=== PATIENT | female | born 1950 | race Two or more races ===

== ENCOUNTER → 2016-05-22 | Outpatient (REF) | payer MEDICARE ==
[2016-05-22 13:46] LABS: ANION GAP 8 MEQ/L (8-16); BLOOD UREA NITROGEN 18 MG/DL (7-18); CALCIUM LEVEL 9.6 MG/DL (8.8-10.2); CARBON DIOXIDE LEVEL 31 MEQ/L (21-32); CHLORIDE LEVEL 102 MEQ/L (98-107); CHOLESTEROL LEVEL 133 MG/DL (<200); CREATININE FOR GFR 0.66 MG/DL (0.55-1.02); FREE T4 1.06 NG/DL (0.76-1.46); GLOMERULAR FILTRATION RATE > 60.0 (>45); GLUCOSE, FASTING 190 MG/DL (80-110); POTASSIUM SERUM 4.1 MEQ/L (3.5-5.1); SODIUM LEVEL 141 MEQ/L (136-145); TRIGLYCERIDES LEVEL 167 MG/DL (<150)
== END ==
LOC: M SFHCPLAZ 10:17
PROVIDERS: ATTEND Family Medicine
DX: R68.89 Other general symptoms and signs (principal); E11.42 Type 2 diabetes mellitus with diabetic polyneuropathy; E78.5 Hyperlipidemia, unspecified
CPT/HCPCS: 36415; 80048; 80061; 82043; 83036; 84439; 84443; G0463

== ENCOUNTER → 2016-06-16 | Outpatient (REF) | payer MEDICARE | LOC: M SFHCPLAZ 13:01 | PROVIDERS: ATTEND Family Medicine | DX: R80.9 Proteinuria, unspecified (principal) ==

== ENCOUNTER → 2017-01-18 | Outpatient (REF) | payer MEDICARE | LOC: M SFHCPLAZ 09:22 | PROVIDERS: ATTEND Family Medicine | DX: E11.42 Type 2 diabetes mellitus with diabetic polyneuropathy (principal) | CPT/HCPCS: 36415; 83036; G0463 ==

== ENCOUNTER → 2017-01-27 | Outpatient (CLI) | payer MEDICARE ==
--- NOTE | 2017-01-27 21:44 | REP ---
Left shoulder three views : There is no fracture or dislocation. Mineralization and joint spaces are normal. There are no calcifications or foreign bodies. Impression: Negative left shoulder . Signed by Sharad Mirza MD 01/27/2017 09:35 P
== END ==
LOC: M WUC 17:00
PROVIDERS: ATTEND Family Medicine
DX: M67.912 Unspecified disorder of synovium and tendon, left shoulder (principal)

== ENCOUNTER → 2017-07-28 | Outpatient (REF) | payer MEDICARE ==
[2017-07-28 12:20] LABS: ESTIMATED AVERAGE GLUCOSE 120 MG/DL (60-110); HEMOGLOBIN A1c 5.8 %
== END ==
LOC: M SFHCPLAZ 08:50
DX: E11.42 Type 2 diabetes mellitus with diabetic polyneuropathy (principal)
CPT/HCPCS: 83036

== ENCOUNTER → 2017-08-03 | Outpatient (REF) | payer MEDICARE ==
[2017-08-03 12:34] LABS: FREE T4 1.02 NG/DL (0.76-1.46)
== END ==
LOC: M SFHCPLAZ 10:23
DX: R25.1 Tremor, unspecified (principal)
CPT/HCPCS: 84443

== ENCOUNTER → 2017-08-27 | Outpatient (CLI) | payer MEDICARE ==
[2017-08-27 18:13] LABS: ESTIMATED AVERAGE GLUCOSE 123 MG/DL (60-110); HEMOGLOBIN A1c 5.9 %
[2017-08-27 18:14] LABS: VITAMIN B12 LEVEL 299 PG/ML
[2017-08-27 18:15] LABS: FOLATE 17.2 NG/ML
[2017-08-27 18:16] LABS: CPK CREATINE PHOSPHOKINASE 47 U/L (26-192)
[2017-08-27 18:16] LABS: FREE T4 0.97 NG/DL (0.76-1.46); RHEUMATOID FACTOR QUANT < 10.0 IU/ML (<15.0)
[2017-08-27 18:23] LABS: ERYTHROCYTE SEDIMENTATION RATE 46 mm/hr (0-30)
[2017-09-02 08:41] LABS: ANTINUCLEAR ANTIBODIES DIRECT Negative (Negative); VITAMIN B1 LEVEL WHOLE BLOOD 111.5 nmol/L (66.5-200.0); VITAMIN B6,PYRIDOXAL PHOSPHATE 3.2 ug/L (2.0-32.8); VITAMIN E(ALPHA TOCOPHEROL) 7.7 mg/L (9.0-29.0); VITAMIN E(GAMMA TOCOPHEROL) 2.9 mg/L (0.5-4.9)
== END ==
LOC: M WUC 12:17
DX: E11.9 Type 2 diabetes mellitus without complications (principal); E07.9 Disorder of thyroid, unspecified; R53.83 Other fatigue
CPT/HCPCS: 82550

== ENCOUNTER → 2017-09-06 | Outpatient (CLI) | payer MEDICARE | LOC: M RAD 11:48 | DX: R26.0 Ataxic gait (principal); I65.23 Occlusion and stenosis of bilateral carotid arteries | CPT/HCPCS: 93880 ==

== ENCOUNTER → 2017-12-15 | Outpatient (REF) | payer MEDICARE ==
[2017-12-15 12:03] LABS: ESTIMATED AVERAGE GLUCOSE 166 MG/DL (60-110); HEMOGLOBIN A1c 7.4 %
== END ==
LOC: M SFHCPLAZ 08:59
DX: E11.42 Type 2 diabetes mellitus with diabetic polyneuropathy (principal)
CPT/HCPCS: 83036

== ENCOUNTER → 2018-01-25 | Outpatient (REF) | payer MEDICARE ==
[2018-01-25 14:29] LABS: FOLATE 15.6 NG/ML; TOTAL 25(OH) VITAMIN D 38.7 NG/ML (30.0-100.0); VITAMIN B12 LEVEL 1168 PG/ML
== END ==
LOC: M LABNEURO 10:03
DX: E53.8 Deficiency of other specified B group vitamins (principal); E55.9 Vitamin D deficiency, unspecified
CPT/HCPCS: 82746

== ENCOUNTER → 2018-03-29 | Outpatient (CLI) | payer MEDICARE ==
[2018-03-29 14:48] LABS: CALCIUM LEVEL 8.9 MG/DL (8.8-10.2); CHOLESTEROL RISK RATIO 2.311 (<5); CREATININE FOR GFR 1.01 MG/DL (0.55-1.30); MALB URINE SIEMENS 32.9 MG/L; MAU/CREAT RATIO 31.6 MCG/MG (0.0-30.0); POTASSIUM SERUM 4.9 MEQ/L (3.5-5.1)
[2018-03-29 14:55] LABS: HEMOGLOBIN A1c 7.8 %
== END ==
LOC: M WUC 11:49
PROVIDERS: ATTEND Family Medicine
DX: K13.0 Diseases of lips (principal); E78.5 Hyperlipidemia, unspecified; E11.42 Type 2 diabetes mellitus with diabetic polyneuropathy

== ENCOUNTER 2018-05-26 07:45 | Day surgery (SDC) | payer MEDICARE ==
[~2018-05-26] VITALS: Ht 158.8 cm; Wt 73.5 kg
[~2018-05-26 07:45] MED LIST: ASPI81TA85 PO; ATOR40TA75 PO; BALANCED SALT IRRIGATION SOLUTION 500ML BAG (FOR OR EYE MACHINE) As Ordered ONE; CALCCHW4 PO; CLOP75TA2 PO; DUOVISC (0.50ML VISCOAT/0.55ML PROVISC) OPHTH KIT As Ordered ONE; FLUTISP; GLIP2.5T6 PO; GLUC750T22 PO; LISI-542 PO; MECL-68 PO; METF10004 PO; MIDAZOLAM INJ 2 MG/2 ML VIAL (J2250) As Ordered ONE; MOXIFLOXACIN IN BSS 0.25MG/0.25ML INTRACAMERAL INJ (OR EYE ONLY)(J2280) As Ordered ONE; OFLOXACIN 0.3 % (OCUFLOX) OPTH SOL 5ML OS ONE; PHENYLEPHRINE 2.5% OPHTH SOL 2ML OS ONE; POVIDONE-IODINE 5% OPHTH PREP SOL 30ML As Ordered ONE; PROPARACAINE 0.5% OPHTH SOL 15ML OS ONE; TRIA1CR80; TROPICAMIDE 1% OPHTH SOLN 2ML OS ONE; VENL150C43 PO; VITA100L PO; VITA2000 PO; fentaNYL 100 MCG/2 ML INJECTION (J3010) As Ordered ONE
[2018-05-26] MEDS ORDERED: LIDOCAINE 0.75%/EPINEPHRINE 0.025% IN BSS 1ML SYR INTRACAMERAL (OR ONLY) As Ordered ONE (09:45)
[2018-05-26 10:25] VITALS: BP 120/57
--- NOTE | 2018-05-27 08:07 | RO ---
DATE OF PROCEDURE: 05/26/2018 PREOPERATIVE DIAGNOSIS: 1. Visually significant nuclear sclerotic cataract left eye. POSTOPERATIVE DIAGNOSIS: 1. Visually significant nuclear sclerotic cataract left eye. PROCEDURE: 1. Cataract extraction with use of phacoemulsification and placement of intraocular lens, AU00T0, 20.5 D, left eye. SURGEON: Abran De Jesus DO HAND BINDER CUTTER: None. ANESTHESIA: Local with monitored anesthesia care (MAC). COMPLICATIONS: None. POSTOPERATIVE CONDITION: Stable. INDICATIONS FOR SURGERY: 1. Blurred vision affecting patients activities of daily living. DESCRIPTION OF PROCEDURE: The patient was seen in the preoperative area and properly identified. The correct operative eye was identified and marked. The patient received topical anesthetic, antibiotics, and topical dilating drops. The patient was then transferred to the operating room. The correct side was re-identified, and a time-out was performed. The eye was prepped and draped in a sterile fashion. The eyelids were isolated with Tegaderm tape, and the lids were held open with an adjustable speculum. A 1.0 mm paracentesis incision was made. Intraocular preservative-free Shugarcaine was then injected into the anterior chamber. Viscoelastic was then injected into the anterior chamber through the paracentesis. Using a 2.4 mm sharp-tipped keratome, the anterior chamber was entered via a temporal clear cornea incision. A continuous curvilinear capsulorrhexis was created with Utrata forceps. Hydrodissection was performed with balanced salt solution (BSS) on a blunt cannula until the nucleus was able to rotate freely. The crystalline lens was phacoemulsified and aspirated. Irrigation/aspiration was used to remove the cortical material. Cohesive viscoelastic was placed into the capsular bag to deepen it. The implant was placed into the capsular bag and allowed to unfold. Placement was confirmed by visualizing the anterior capsulorrhexis. Irrigation/aspiration was used to remove the viscoelastic. The clear corneal incision was hydrated with BSS on a blunt cannula. The lens was well positioned. The incisions were then tested for leaks and found to be negative. The eye was then palpated for appropriate pressure and adjusted accordingly with BSS. The eyelid speculum was then carefully removed. A shield was placed over the eye. The patient tolerated the procedure well and was discharged to the recovery unit in a stable condition.
== END 2018-05-26 10:42 | disposition home or self-care (01) ==
LOC: M SDC 07:45
PROVIDERS: ATTEND Ophthalmology
DX: H25.12 Age-related nuclear cataract, left eye (principal); I10 Essential (primary) hypertension; G47.30 Sleep apnea, unspecified; E11.9 Type 2 diabetes mellitus without complications; F32.9 Major depressive disorder, single episode, unspecified; Z79.82 Long term (current) use of aspirin; Z79.84 Long term (current) use of oral hypoglycemic drugs; Z79.899 Other long term (current) drug therapy
CPT/HCPCS: 66984; J2250; J3010; V2632

== ENCOUNTER 2018-06-16 09:11 | Day surgery (SDC) | payer MEDICARE ==
[~2018-06-16] VITALS: Ht 157.5 cm; Wt 73.4 kg
[~2018-06-16 09:11] MED LIST changes: +LIDOCAINE 0.75%/EPINEPHRINE 0.025% IN BSS 1ML SYR INTRACAMERAL (OR ONLY) As Ordered ONE; -MOXIFLOXACIN IN BSS 0.25MG/0.25ML INTRACAMERAL INJ (OR EYE ONLY)(J2280) As Ordered ONE; +OFLOXACIN 0.3 % (OCUFLOX) OPTH SOL 5ML OD ONE; -OFLOXACIN 0.3 % (OCUFLOX) OPTH SOL 5ML OS ONE; +PHENYLEPHRINE 2.5% OPHTH SOL 2ML OD ONE; -PHENYLEPHRINE 2.5% OPHTH SOL 2ML OS ONE; +PROPARACAINE 0.5% OPHTH SOL 15ML OD ONE; -PROPARACAINE 0.5% OPHTH SOL 15ML OS ONE; +TROPICAMIDE 1% OPHTH SOLN 2ML OD ONE; -TROPICAMIDE 1% OPHTH SOLN 2ML OS ONE
[2018-06-16] MEDS ORDERED: B-12100010 PO (10:21)
[2018-06-16 11:55] VITALS: BP 138/78
--- NOTE | 2018-06-20 16:54 | RO ---
DATE OF PROCEDURE: 06/16/2018 PREOPERATIVE DIAGNOSIS: 1. Visually significant nuclear sclerotic cataract right eye. POSTOPERATIVE DIAGNOSIS: 1. Visually significant nuclear sclerotic cataract right eye. PROCEDURE: 1. Cataract extraction with use of phacoemulsification and placement of intraocular lens, AU00T0, 21.0 D, right eye. SURGEON: Abran De Jesus DO CHILD SUPPORT AGENT: None. ANESTHESIA: Local with monitored anesthesia care (MAC). COMPLICATIONS: None. POSTOPERATIVE CONDITION: Stable. INDICATIONS FOR SURGERY: 1. Blurred vision affecting patients activities of daily living. DESCRIPTION OF PROCEDURE: The patient was seen in the preoperative area and properly identified. The correct operative eye was identified and marked. The patient received topical anesthetic, antibiotics, and topical dilating drops. The patient was then transferred to the operating room. The correct side was re-identified, and a time-out was performed. The eye was prepped and draped in a sterile fashion. The eyelids were isolated with Tegaderm tape, and the lids were held open with an adjustable speculum. A 1.0 mm paracentesis incision was made. Intraocular preservative-free Shugarcaine was then injected into the anterior chamber. Viscoelastic was then injected into the anterior chamber through the paracentesis. Using a 2.4 mm sharp-tipped keratome, the anterior chamber was entered via a temporal clear cornea incision. A continuous curvilinear capsulorrhexis was created with Utrata forceps. Hydrodissection was performed with balanced salt solution (BSS) on a blunt cannula until the nucleus was able to rotate freely. The crystalline lens was phacoemulsified and aspirated. Irrigation/aspiration was used to remove the cortical material. Cohesive viscoelastic was placed into the capsular bag to deepen it. The implant was placed into the capsular bag and allowed to unfold. Placement was confirmed by visualizing the anterior capsulorrhexis. Irrigation/aspiration was used to remove the viscoelastic. The clear corneal incision was hydrated with BSS on a blunt cannula. The lens was well positioned. The incisions were then tested for leaks and found to be negative. The eye was then palpated for appropriate pressure and adjusted accordingly with BSS. The eyelid speculum was then carefully removed. A shield was placed over the eye. The patient tolerated the procedure well and was discharged to the recovery unit in a stable condition.
== END 2018-06-16 12:56 | disposition home or self-care (01) ==
LOC: M SDC 09:11
PROVIDERS: ATTEND Ophthalmology
DX: H25.11 Age-related nuclear cataract, right eye (principal); I10 Essential (primary) hypertension; G47.30 Sleep apnea, unspecified; E11.9 Type 2 diabetes mellitus without complications; Z79.84 Long term (current) use of oral hypoglycemic drugs; Z79.899 Other long term (current) drug therapy; Z88.0 Allergy status to penicillin; Z88.8 Allergy status to other drugs, medicaments and biological substances
CPT/HCPCS: 66984; J2250; J3010; V2632

== ENCOUNTER → 2018-09-07 | Outpatient (REF) | payer MEDICARE ==
[~2018-09-07] MED LIST changes: +B-12100010 PO; -BALANCED SALT IRRIGATION SOLUTION 500ML BAG (FOR OR EYE MACHINE) As Ordered ONE; -DUOVISC (0.50ML VISCOAT/0.55ML PROVISC) OPHTH KIT As Ordered ONE; -LIDOCAINE 0.75%/EPINEPHRINE 0.025% IN BSS 1ML SYR INTRACAMERAL (OR ONLY) As Ordered ONE; -MIDAZOLAM INJ 2 MG/2 ML VIAL (J2250) As Ordered ONE; -OFLOXACIN 0.3 % (OCUFLOX) OPTH SOL 5ML OD ONE; -PHENYLEPHRINE 2.5% OPHTH SOL 2ML OD ONE; -POVIDONE-IODINE 5% OPHTH PREP SOL 30ML As Ordered ONE; -PROPARACAINE 0.5% OPHTH SOL 15ML OD ONE; -TROPICAMIDE 1% OPHTH SOLN 2ML OD ONE; -fentaNYL 100 MCG/2 ML INJECTION (J3010) As Ordered ONE
[2018-09-07 15:03] LABS: BLOOD UREA NITROGEN 15 MG/DL (7-18); CALCIUM LEVEL 9.5 MG/DL (8.8-10.2); CARBON DIOXIDE LEVEL 30 MEQ/L (21-32); CHLORIDE LEVEL 104 MEQ/L (98-107); GLOMERULAR FILTRATION RATE > 60.0 (>45); GLUCOSE, FASTING 242 MG/DL (70-100); POTASSIUM SERUM 4.1 MEQ/L (3.5-5.1); SODIUM LEVEL 142 MEQ/L (136-145); VITAMIN B12 LEVEL > 2000 PG/ML (247-911)
== END ==
LOC: M SFHCPLAZ 14:01
PROVIDERS: ATTEND Family Medicine
DX: E11.42 Type 2 diabetes mellitus with diabetic polyneuropathy (principal); R26.0 Ataxic gait

== ENCOUNTER → 2018-09-21 | Outpatient (RCR) | payer MEDICARE | LOC: M PT 09-20 08:04 | PROVIDERS: ATTEND Family Medicine | DX: Z51.89 Encounter for other specified aftercare (principal); R26.0 Ataxic gait ==

== ENCOUNTER 2018-10-20 10:30 | Outpatient (RCR) | payer MEDICARE | END 2018-10-22 | LOC: M PT 10:30 | PROVIDERS: ATTEND Family Medicine | DX: Z51.89 Encounter for other specified aftercare (principal); R26.0 Ataxic gait; R42 Dizziness and giddiness ==

== ENCOUNTER 2018-11-09 08:30 | Outpatient (RCR) | payer MEDICARE | END 2018-11-21 | LOC: M PT 08:30 | PROVIDERS: ATTEND Family Medicine | DX: R42 Dizziness and giddiness (principal); R26.0 Ataxic gait ==

== ENCOUNTER → 2018-12-09 | Outpatient (REF) | payer MEDICARE ==
[2018-12-09 19:20] LABS: BLOOD UREA NITROGEN 12 MG/DL (7-18); CALCIUM LEVEL 9.2 MG/DL (8.8-10.2); CARBON DIOXIDE LEVEL 29 MEQ/L (21-32); CHLORIDE LEVEL 103 MEQ/L (98-107); CREATININE FOR GFR 0.66 MG/DL (0.55-1.30); GLOMERULAR FILTRATION RATE > 60.0 (>45); GLUCOSE, FASTING 211 MG/DL (70-100); POTASSIUM SERUM 4.3 MEQ/L (3.5-5.1); SODIUM LEVEL 139 MEQ/L (136-145)
[2018-12-09 19:24] LABS: HEMOGLOBIN A1c 8.1 %
== END ==
LOC: M SFHCSACK 10:46
PROVIDERS: ATTEND Physician Assistant
DX: E11.42 Type 2 diabetes mellitus with diabetic polyneuropathy (principal)

== ENCOUNTER → 2019-03-17 | Outpatient (CLI) | payer MEDICARE ==
[~2019-03-17] MED LIST changes: -MECL-68 PO; +MECL1TAB31 PO
[2019-03-17 12:53] LABS: BLOOD UREA NITROGEN 10 MG/DL (7-18); CALCIUM LEVEL 8.9 MG/DL (8.8-10.2); CARBON DIOXIDE LEVEL 29 MEQ/L (21-32); CHLORIDE LEVEL 107 MEQ/L (98-107); CREATININE FOR GFR 0.65 MG/DL (0.55-1.30); GLOMERULAR FILTRATION RATE > 60.0 (>45); GLUCOSE, FASTING 129 MG/DL (70-100); POTASSIUM SERUM 4.5 MEQ/L (3.5-5.1); SODIUM LEVEL 144 MEQ/L (136-145)
[2019-03-17 13:24] LABS: MALB URINE SIEMENS 16.5 MG/L; MAU/CREAT RATIO 11.7 MCG/MG (0.0-30.0)
== END ==
LOC: M WUC 09:03
PROVIDERS: ATTEND Family Medicine
DX: E11.42 Type 2 diabetes mellitus with diabetic polyneuropathy (principal)

== ENCOUNTER → 2019-05-01 | Outpatient (CLI) | payer MEDICARE ==
--- NOTE | 2019-05-08 09:54 | REPMRS ---
Patient History The patient states she has not had a clinical breast exam in over a year. Patient is postmenopausal and had first child at age 34. Family history of unknown cancer in father, unknown cancer in brother. 3D TOMOSYNTHESIS WAS PERFORMED. [facility] lifetime risk for breast cancer is 6.1%. [facility] Woman Screen Mammo: May 01, 2019 - Exam #: [id number] Bilateral CC and MLO view(s) were taken. Technologist: Amna Bean Technologist FINDINGS: The breast tissue is heterogeneously dense. This may lower the sensitivity of mammography. There has been no change in the appearance of the mammogram from the prior studies. There is a moderate amount of residual fibroglandular tissue which is fairly symmetric. There is no interval development of dominant mass, areas of architectural distortion, or clustered microcalcification typical of malignancy. Assessment: BI-RADS/ACR category 1 mammogram. Negative Mammogram. Recommendation Routine screening mammogram in 1 year (for women over age 40). This mammogram was interpreted with the aid of an FDA-approved computer-aided dectection system. Electronically Signed By: Sharad Mirza M.D. 05/08/19 0953
== END ==
LOC: M WHC 08:53
PROVIDERS: ATTEND Nurse Practitioner Family
DX: Z12.31 Encounter for screening mammogram for malignant neoplasm of breast (principal); Z78.0 Asymptomatic menopausal state

== ENCOUNTER → 2019-10-20 | Outpatient (CLI) | payer MEDICARE ==
[~2019-10-20] MED LIST changes: -ASPI81TA85 PO; +ASPI81TA86 PO; +BREO1INH INH; +GABA-845 PO; +MAGN400C2 PO; +OXYC1TAB23 PO; +TRUL10IN SC
[2019-10-20 15:50] LABS: ALBUMIN 3.5 GM/DL (3.2-5.2); ALT/SGPT 22 U/L (12-78); BILIRUBIN,TOTAL 0.6 MG/DL (0.2-1.0); BLOOD UREA NITROGEN 13 MG/DL (7-18); CALCIUM LEVEL 9.3 MG/DL (8.8-10.2); CARBON DIOXIDE LEVEL 31 MEQ/L (21-32); CHLORIDE LEVEL 105 MEQ/L (98-107); CHOLESTEROL LEVEL 125 MG/DL (<200); CHOLESTEROL RISK RATIO 2.118 (<5); CREATININE FOR GFR 0.64 MG/DL (0.55-1.30); GLOMERULAR FILTRATION RATE > 60.0 (>45); GLUCOSE, FASTING 108 MG/DL (70-100); HDL CHOLESTEROL 59 MG/DL (>40); LDL CHOLESTEROL 35 MG/DL (<100); NON-HDL-C 66 MG/DL; POTASSIUM SERUM 4.5 MEQ/L (3.5-5.1); SODIUM LEVEL 143 MEQ/L (136-145); TOTAL PROTEIN 7.5 GM/DL (6.4-8.2); TRIGLYCERIDES LEVEL 154 MG/DL (<150)
[2019-10-20 17:49] LABS: HEMOGLOBIN A1c 6.1 %
== END ==
LOC: M WUC 10:46
PROVIDERS: ATTEND Physician Assistant
DX: I10 Essential (primary) hypertension (principal); E78.2 Mixed hyperlipidemia; E11.42 Type 2 diabetes mellitus with diabetic polyneuropathy

== ENCOUNTER → 2019-11-27 | Outpatient (CLI) | payer MEDICARE ==
--- NOTE | 2019-12-04 12:47 | REPPI ---
CHEST X-RAY 2-VIEWS HISTORY: Chronic obstructive pulmonary disease (COPD). COMPARISON: No comparison study. FINDINGS: There is blunting of the right lateral and posterior pleural angles consistent with right pleural effusion small in size. Interstitial markings are diffusely prominent. There is plate-like atelectasis in the right inferior parahilar region. The heart is borderline. Cardiothoracic ratio measures 54.4%. There are degenerative changes in the thoracic spine and aorta. IMPRESSION: Small right pleural effusion. Diffuse interstitial fibrosis versus edema. Plate- like atelectasis right inferior perihilar region. Borderline heart size. MTDD
== END ==
LOC: M PLAIMG 11:33
PROVIDERS: ATTEND Nurse Practitioner Family
DX: J90 Pleural effusion, not elsewhere classified (principal); J98.11 Atelectasis; J44.1 Chronic obstructive pulmonary disease with (acute) exacerbation
CPT/HCPCS: 36415; 71046; 80053; 83735; 83880; 85025; 86140; 87486; 87581; 87633; 87798; 90682; G0008

== ENCOUNTER → 2019-11-27 | Outpatient (REF) | payer MEDICARE ==
[2019-11-27 14:11] LABS: BASO % 0.4 % (0.0-1.0); EOS # 0.9 10^3/uL (0.0-0.5); EOS % 7.8 % (0.0-3.0); HEMATOCRIT 34.7 % (36.0-47.0); HEMOGLOBIN 10.8 g/dl (12.0-15.5); LYMPH # 2.4 10^3/uL (1.5-5.0); LYMPH % 21.6 % (24.0-44.0); MEAN CORPUSCULAR HEMOGLOBIN 28.7 pg (27.0-33.0); MEAN CORPUSCULAR HGB CONC 31.1 g/dl (32.0-36.5); MEAN CORPUSCULAR VOLUME 92.3 fl (80.0-96.0); MONO # 0.9 10^3/uL (0.0-0.8); MONO % 7.9 % (0.0-5.0); NEUTROPHILS # 6.8 10^3/uL (1.5-8.5); NEUTROPHILS % 61.9 % (36.0-66.0); PLATELET COUNT, AUTOMATED 276 10^3/uL (150-450); RED BLOOD COUNT 3.76 10^6/uL (4.00-5.40)
[2019-11-27 14:37] LABS: NT-PRO BNP 138 PG/ML (<125)
[2019-11-27 15:14] LABS: ALBUMIN 3.3 GM/DL (3.2-5.2); ALT/SGPT 20 U/L (12-78); BILIRUBIN,TOTAL 0.3 MG/DL (0.2-1.0); BLOOD UREA NITROGEN 13 MG/DL (7-18); CALCIUM LEVEL 9.4 MG/DL (8.8-10.2); CARBON DIOXIDE LEVEL 32 MEQ/L (21-32); CHLORIDE LEVEL 104 MEQ/L (98-107); CREATININE FOR GFR 0.58 MG/DL (0.55-1.30); GLOMERULAR FILTRATION RATE > 60.0 (>39); GLUCOSE, FASTING 74 MG/DL (70-100); POTASSIUM SERUM 4.4 MEQ/L (3.5-5.1); SODIUM LEVEL 141 MEQ/L (136-145); TOTAL PROTEIN 7.3 GM/DL (6.4-8.2)
== END ==
LOC: M SFHCPLAZ 11:34
PROVIDERS: ATTEND Nurse Practitioner Family
DX: R06.02 Shortness of breath (principal); J44.1 Chronic obstructive pulmonary disease with (acute) exacerbation

== ENCOUNTER → 2019-12-05 | Outpatient (CLI) | payer MEDICARE ==
[~2019-12-05] MED LIST changes: +ISOVUE-370 76% 100ML VIAL As Ordered ONE; -OXYC1TAB23 PO
--- NOTE | 2019-12-08 08:30 | REP ---
CONTRAST ENHANCED CHEST CT: 12/05/19 CLINICAL: Interstitial pulmonary disease. TECHNIQUE: Axial contrast enhanced images from the thoracic inlet to the upper abdomen with coronal and sagittal reformations using 75cc Isovue 370 intravenous contrast material. COMPARISON: None. FINDINGS: There is a 3.5cm infiltrating mass at the right hilum with associated adjacent adenopathy and extension into the right infrahilar lower lobe. Underlying diffuse interstitial prominence and small irregular areas of air space disease are also appreciate primarily involving the right hemithorax and to a lesser extent portions of the left upper lobe and left lower lobe. There is a small right pleural effusion also identified. These findings are most compatible with primary pulmonary malignancy. The tracheobronchial tree is relatively patent. There is no evidence of pneumothorax. Further evaluation of the mediastinum demonstrates atherosclerotic disease to the thoracic aorta and coronary arteries without aortic aneurysm or cardiomegaly. No pericardial effusion. Musculoskeletal structures demonstrate age related changes without acute osseous abnormality. Limited upper abdomen demonstrates normal bilateral adrenal glands. IMPRESSION: 3.5cm infiltrating right hilar mass with mediastinal adenopathy and extension into the infrahilar right lower lobe along with moderate diffuse increased interstitial changes and small scattered air space disease (right greater than left). Findings compatible with primary pulmonary malignancy and require further investigation and immediate attention. MTDD
== END ==
LOC: M RAD 10:35
PROVIDERS: ATTEND Nurse Practitioner Family
DX: J84.9 Interstitial pulmonary disease, unspecified (principal); R91.8 Other nonspecific abnormal finding of lung field
CPT/HCPCS: 71260; Q9967

== ENCOUNTER → 2019-12-07 | Outpatient (REF) | payer MEDICARE ==
[~2019-12-07] MED LIST changes: -ISOVUE-370 76% 100ML VIAL As Ordered ONE
[2019-12-07 15:36] LABS: PLATELET COUNT, AUTOMATED 281 10^3/uL (150-450)
[2019-12-07 15:51] LABS: INR 0.98; PROTHROMBIN TIME 13.1 SECONDS (12.5-14.3)
[2019-12-07 15:56] LABS: BLOOD UREA NITROGEN 13 MG/DL (7-18); CALCIUM LEVEL 9.6 MG/DL (8.8-10.2); CARBON DIOXIDE LEVEL 32 MEQ/L (21-32); CHLORIDE LEVEL 103 MEQ/L (98-107); CREATININE FOR GFR 0.47 MG/DL (0.55-1.30); GLOMERULAR FILTRATION RATE > 60.0 (>39); GLUCOSE, FASTING 52 MG/DL (70-100); POTASSIUM SERUM 4.2 MEQ/L (3.5-5.1); SODIUM LEVEL 139 MEQ/L (136-145)
== END ==
LOC: M LAB REF 15:19
PROVIDERS: ATTEND Internal Medicine Pulmonary Disease
DX: Z01.812 Encounter for preprocedural laboratory examination (principal); R91.8 Other nonspecific abnormal finding of lung field; Z79.01 Long term (current) use of anticoagulants

== ENCOUNTER → 2019-12-22 | Outpatient (CLI) | payer MEDICARE | LOC: M LABSMTC 12:33 | PROVIDERS: ATTEND Anesthesiology | DX: Z01.812 Encounter for preprocedural laboratory examination (principal); Z20.828 Contact with and (suspected) exposure to other viral communicable diseases | CPT/HCPCS: C9803; U0003 ==

== ENCOUNTER 2019-12-27 06:21 | Day surgery (SDC) | payer MEDICARE ==
[~2019-12-27] VITALS: Ht 157.5 cm; Wt 65.8 kg
[~2019-12-27 06:21] MED LIST changes: +LR 1,000 ML IV ONE
[2019-12-27] MEDS ORDERED: LIDOCAINE 2% 100MG/5ML SDV (FOR ANES.) As Ordered ONE (07:12)
[2019-12-27] MEDS ORDERED: fentaNYL 100 MCG/2 ML INJECTION (J3010) As Ordered ONE ×2 (07:12→08:01)
[2019-12-27] MEDS ORDERED: ROCURONIUM BROMIDE 50 MG/5 ML VIAL As Ordered ONE (07:12)
[2019-12-27] MEDS ORDERED: MIDAZOLAM INJ 2MG/2ML VIAL (J2250 PER 1MG) As Ordered ONE (07:12)
[2019-12-27] MEDS ORDERED: propofoL 200 MG/20 ML VIAL As Ordered ONE (07:12)
[2019-12-27] MEDS ORDERED: ALBUTEROL SULFATE 2.5 MG/0.5 ML INH NEB SOLN INH ONE (07:15)
[2019-12-27] MEDS ORDERED: LIDOCAINE 4% INJ 5ML AMP INH ONE (07:15)
[2019-12-27] MEDS ORDERED: EPINEPHrine 1MG/10ML SYRINGE 1.5IN As Ordered ONE (07:19)
[2019-12-27] MEDS ORDERED: LIDOCAINE 1% SDV 30ML VIAL As Ordered ONE (07:19)
[2019-12-27] MEDS ORDERED: THROMBIN SOLN 5,000 UNITS VIAL As Ordered ONE (07:19)
[2019-12-27] MEDS ORDERED: CETACAINE SPRAY 5GM As Ordered ONE (07:20)
[2019-12-27] MEDS ORDERED: dexameTHASONE 4 MG/ML 1ML VIAL (J1100 PER 1MG) As Ordered ONE (07:58)
[2019-12-27] MEDS ORDERED: ONDANSETRON 4MG/2ML VIAL As Ordered ONE (08:08)
[2019-12-27] MEDS ORDERED: METOCLOPRAMIDE INJ 10MG/2ML VIAL (J2765 PER 1) As Ordered ONE (08:08)
[2019-12-27] MEDS ORDERED: SUGAMMADEX SODIUM 500 MG/5 ML VIAL (BRIDION) As Ordered ONE (08:08)
--- NOTE | 2019-12-27 09:12 | REP ---
INDICATION: POST BRONCH/EBUS IN 2238. COMPARISON: Comparison chest x-ray November 27, 2019. Comparison chest CT study December 05, 2019.. TECHNIQUE: Portable upright AP view. FINDINGS: Monitoring electrodes are seen. Mitral annular calcification and cardiomegaly are again observed. There is pleuroparenchymal opacity in the right base and prior right inferior hilar region. This radiograph is exposed at the lesser level of inspiration which magnifies this period the pleuroparenchymal process does appear more extensive than on the 11 27 2019 study. There are increased interstitial markings in the apices, right greater than left. There is no evidence of pneumothorax. IMPRESSION: Lesser level of inspiration. No complication seen. Pleuroparenchymal process right base and biapical interstitial changes. <Electronically signed by Schuyler Galeano > 12/27/19 0984
[2019-12-27] MEDS ORDERED: fentaNYL 100 MCG/2 ML INJECTION (J3010) IV PRN (09:15)
[2019-12-27] MEDS ORDERED: oxyCODONE 5MG TAB PO PRN (09:15)
[2019-12-27] MEDS ORDERED: ONDANSETRON 4MG/2ML VIAL IV PRN (09:15)
[2019-12-27] MEDS ORDERED: LR 1,000 ML IV SCH (09:15)
[2019-12-27] MEDS ORDERED: METOCLOPRAMIDE INJ 10MG/2ML VIAL (J2765 PER 1) IV PRN (09:15)
[2019-12-27 10:30] VITALS: BP 136/68
--- NOTE | 2019-12-28 11:21 | ROOR ---
Patient Name: April Gómez Procedure Date: 12/27/2019 7:44 AM Date of : 1950 Admit Type: Outpatient Age: 69 Room: Main OR Note Status: Batch Blender Override Attending MD: Briana Gutierrez MD Procedure: Bronchoscopy Indications: Right middle lobe mass, Right lower lobe mass, Adenopathy Providers: Briana Gutierrez MD (Doctor), Bebeto Andrade DO, FCCP (1st Assisting Doctor) Referring MD: Jael Self (Referring MD) Requesting Physician: Medicines: Lidocaine 4% via nebulizer with Albuterol 2.5 mg, General Anesthesia, Cetacaine topical, Epinephrine 1 mg/10 mL topical 1 mL Complications: No immediate complications. Estimated blood loss: Minimal Procedure: Pre-Anesthesia Assessment: - Prior to the procedure, a History and Physical was performed, and patient medications and allergies were reviewed. The patient's tolerance of previous anesthesia was also reviewed. The risks and benefits of the procedure and the sedation options and risks were discussed with the patient. All questions were answered, and informed consent was obtained. Prior Anticoagulants: The patient has taken aspirin and Plavix (clopidogrel), last doses were 7 days prior to procedure. ASA Grade Assessment: III - A patient with severe systemic disease. After reviewing the risks and benefits, the patient was deemed in satisfactory condition to undergo the procedure. - Patient identification and proposed procedure were verified prior to the procedure by the physician, the nurse, the cargo station worker and the bench lay out technician. The procedure was verified in the procedure room. The Bronchoscope was introduced through the mouth, via the endotracheal tube (the patient was intubated for the procedure) and advanced to the tracheobronchial tree of both lungs. The procedure was accomplished without difficulty. The patient tolerated the procedure well. Findings: Right Lung Abnormalities: Starting from the bronchus intermedius extending into the right middle lobe take off and right lower lobe basal segmental take off and right lower lobe supeior segment take off the mucosa appeared abnormal. The right lower lobe mucosa was friable, edematous with some nodularity noted. There appeared to be narrowing of the right lower lobe take off to basilar segment orifice and narrowng in right lower lobe superior segment (B6) oriface. The mucosa in right middle lobe appeared edematous and friable with mild narrowing noted of the right middle lobe oriface. Endobronchial brushings were obtained in the right lower lobe with a cytology brush and sent for routine cytology. Endobronchial biopsies were performed in the right lower lobe using forceps and sent for histopathology examination. BAL was performed in the right lower lobe of the lung and sent for routine cytology, aerobic culture and anaerobic culture. The return was blood-tinged and cellular. Multiple specimens were obtained, and each sent for analysis. An endobronchial ultrasound endoscope was utilized in order to assist with fine needle aspiration in the subcarinal area. A transbronchial needle aspiration of a lymph node was performed in the subcarinal area using an Olympus EBUS-TBNA 21 gauge needle and sent for routine cytology. The procedure was guided by ultrasound. Transbronchial needle aspiration technique was selected because the sampling site was not visible endoscopically. One sample was obtained. Impression: - Right middle lobe mass - Right lower lobe mass - Adenopathy - Friable, edematous and nodular mucosa was found in the right middle lobe, in the right lower lobe and in the superior segment of the right lower lobe (B6) with narrowing notable more in right lower lobe oriface. - Brushings were obtained. - An endobronchial biopsy was performed. - Bronchoalveolar lavage was performed. - EBUS and FNA of subcarinal lymph node was performed. Recommendation: - Await test results. - Thoracentesis for enlarged right pleural effusion noted on post-procedure CXR Attending Participation: I personally performed the entire procedure. Briana Gutierrez MD 12/27/2019 11:32:07 AM Bbeeto Andrade DO, [facility] Number of Addenda: 0 Note Initiated On: 12/27/2019 7:44 AM
--- NOTE | 2019-12-28 11:21 | ROOR ---
THIS EXAM WAS SENT IN ERROR
[2020-01-05] MEDS ORDERED: OXYC1TAB23 PO (10:32)
== END 2019-12-27 10:30 | disposition home or self-care (01) ==
LOC: M SDC 06:21
PROVIDERS: ATTEND Internal Medicine Pulmonary Disease
DX: C34.31 Malignant neoplasm of lower lobe, right bronchus or lung (principal); I10 Essential (primary) hypertension; J44.9 Chronic obstructive pulmonary disease, unspecified; E11.9 Type 2 diabetes mellitus without complications; E78.49 Other hyperlipidemia; G47.33 Obstructive sleep apnea (adult) (pediatric); F32.9 Major depressive disorder, single episode, unspecified; G25.0 Essential tremor; Z87.891 Personal history of nicotine dependence; Z88.0 Allergy status to penicillin; Z88.8 Allergy status to other drugs, medicaments and biological substances; Z79.899 Other long term (current) drug therapy
CPT/HCPCS: 31623; 31624; 31625; 31652; 71045; 87070; 87205; 88104; 88108; 88173; 88305; 88313; 88341; 88342; C1887; J1100; J2250; J2405; J2765; J3010

== ENCOUNTER → 2020-01-05 | Outpatient (CLI) | payer MEDICARE ==
[~2020-01-05] MED LIST changes: -LR 1,000 ML IV ONE; +OXYC1TAB23 PO; +SODIUM BICARBONATE 8.4% INJ 50MEQ 50 ML VIAL As Ordered ONE
[2020-01-05 11:53] LABS: SOURCE, BODY FLUID PLEURAL
[2020-01-05 11:54] LABS: APPEARANCE, BODY FLUID TURBID (CLEAR); PLEURAL FL COLOR AMBER (COLORLESS)
[2020-01-05 12:34] LABS: PH BODY FLUID 7.399 UNITS (NOT ESTABLISHED); SOURCE, BODY FLUID pH PLEURAL
[2020-01-05 12:39] LABS: AMYLASE, BODY FLUID 14 U/L (NOT ESTABLISHED); LDH, BODY FLUID 188 U/L (NOT ESTABLISHED); SOURCE, BODY FLUID AMYLASE PLEURAL; SOURCE, BODY FLUID GLUCOSE PLEURAL; SOURCE, BODY FLUID LDH PLEURAL; SOURCE, BODY FLUID TOT PROTEIN PLEURAL; TOTAL PROTEIN, BODY FLUID 4.1 G/DL (NOT ESTABLISHED)
[2020-01-05 13:15] VITALS: BP 135/67
--- NOTE | 2020-01-05 13:30 | REP ---
INDICATION: POST RIGHT THORA, 2 VIEW. COMPARISON: Comparison radiograph December 27, 2019.. TECHNIQUE: PA and lateral views. FINDINGS: Patient is status post right thoracentesis. There is a decreased amount of right pleural fluid blunting the right lateral pleural angle. There are 2 or 3 small air-fluid levels consistent with a loculated amount of postprocedure air in the right pleural space. Heart is not enlarged. Mildly prominent interstitial markings are present diffusely. IMPRESSION: Improved right pleural effusion with some loculated pleural air at the right base post thoracentesis. <Electronically signed by Schuyler Galeano > 01/05/20 [id number]
--- NOTE | 2020-01-05 15:21 | REP ---
INDICATION: RIGHT PLEURAL EFFUSION COMPARISON: None. TECHNIQUE: The procedure was performed by Dr. Humphries under the personal supervision of Noreen Flynn, WILLIAN, under the direct supervision of Dr. Galeano The risks and benefits of the procedure were explained to the patient and an informed consent was obtained both verbally and written. Directly prior to the start of the procedure a formal time-out was completed in the procedure room. Pleural fluid in right lung zone was localized using ultrasound guidance. The skin was prepped and draped in a sterile fashion. Eleven ML of buffered lidocaine was used as a local anesthetic. Using ultrasound guidance an 8-Amharic multi side-hole catheter was inserted using trocar technique. FINDINGS: Three hundred sixty mL of red tinged colored fluid was withdrawn and sent to the laboratory for further analysis. The patient tolerated the procedure well and there were no immediate complications. After the appropriate amount of monitored convalescence, the patient was discharged from the department. IMPRESSION: Ultrasound-guided thoracentesis with removal of 360 mL of red-tinged pleural fluid. <Electronically signed by Noreen Flynn > 01/05/20 1310 <Electronically signed by Schuyler Galeano > 01/05/20 1513
== END ==
LOC: M IRPRO 10:06
PROVIDERS: ATTEND Internal Medicine Pulmonary Disease
DX: J90 Pleural effusion, not elsewhere classified (principal); Z88.0 Allergy status to penicillin; Z88.8 Allergy status to other drugs, medicaments and biological substances

== ENCOUNTER → 2020-01-09 | Outpatient (CLI) | payer MEDICARE ==
[~2020-01-09] MED LIST changes: -SODIUM BICARBONATE 8.4% INJ 50MEQ 50 ML VIAL As Ordered ONE
[2020-01-09 11:24] LABS: BLOOD UREA NITROGEN 12 MG/DL (7-18); CREATININE FOR GFR 0.47 MG/DL (0.55-1.30); GLOMERULAR FILTRATION RATE > 60.0 (>39)
== END ==
LOC: M LAB 10:20
PROVIDERS: ATTEND Internal Medicine Pulmonary Disease
DX: Z01.812 Encounter for preprocedural laboratory examination (principal)

== ENCOUNTER → 2020-01-11 | Outpatient (CLI) | payer MEDICARE ==
--- NOTE | 2020-01-11 13:30 | REPPI ---
INDICATION: ABNORMAL LUNG FINDING COMPARISON: 01/05/2020. TECHNIQUE: PA/Lateral FINDINGS: The loculated right base hydropneumothorax is again noted. The amount of pleural air is unchanged. The amount of pleural fluid has mildly increased. There is mild adjacent parenchymal opacity in the right lung base. Fullness of the right hilum is again noted unchanged. Heart mediastinum are unchanged. There is some degree of diffuse interstitial fibrosis unchanged. There is mild biapical pleural thickening. There are degenerative changes of the spine. IMPRESSION: Right hydropneumothorax again noted with mild increase in the amount of pleural fluid. <Electronically signed by Sharad French > 01/11/20 [id number]
== END ==
LOC: M PLAIMG 10:24
PROVIDERS: ATTEND Internal Medicine Pulmonary Disease
DX: J94.8 Other specified pleural conditions (principal); R91.8 Other nonspecific abnormal finding of lung field

== ENCOUNTER → 2020-01-12 | Outpatient (CLI) | payer MEDICARE ==
[~2020-01-12] MED LIST changes: +PROHANCE 279.3MG/ML 15ML VIAL As Ordered ONE
--- NOTE | 2020-01-12 12:09 | REPVR ---
PROCEDURE INFORMATION: Exam: MR Head Without and With Contrast Exam date and time: 01/12/2020 10:34 AM Age: 69 years old Clinical indication: Condition or disease; History of cancer (specify primary cancer site): ; Primary cancer: Intrathoracic node; Additional info: Secondary and unsp malignant neoplasm of intrathorac nodes TECHNIQUE: Imaging protocol: MR of the head without and with intravenous contrast. Contrast material: PROHANCE; Contrast volume: 13 ml; Contrast route: INTRAVENOUS (IV); COMPARISON: No relevant prior studies available. FINDINGS: Brain: There is no extra-axial collection or intra-axial mass. Mild diffuse volume loss is within the range of normal for patient age. There are foci of increased T2/FLAIR hyperintensity within the periventricular and subcortical white matter and substance of the malka, nonspecific but typically small-vessel ischemia in this age group. There is no diffusion restriction. There is no abnormal enhancement within the brain. Cerebral ventricles: Normal. No ventriculomegaly. Bones/joints: Unremarkable. Paranasal sinuses: Normal as visualized. No acute sinusitis. Mastoid air cells: Normal as visualized. No mastoid effusion. Orbits: Unremarkable. Soft tissues: Unremarkable. IMPRESSION: No acute intracranial abnormality. Electronically signed by: Vilma Mo On 01/12/2020 12:09:05 PM
== END ==
LOC: M RAD 09:24
PROVIDERS: ATTEND Internal Medicine Pulmonary Disease
DX: C77.1 Secondary and unspecified malignant neoplasm of intrathoracic lymph nodes (principal); G44.89 Other headache syndrome
CPT/HCPCS: 70553; A9576

== ENCOUNTER → 2020-01-15 | Outpatient (CLI) | payer MEDICARE ==
[~2020-01-15] MED LIST changes: +ASPI81CH33 PO; +HYDR-4571 PO; -PROHANCE 279.3MG/ML 15ML VIAL As Ordered ONE
--- NOTE | 2020-01-17 13:29 | REP ---
INDICATION: INITIAL STAGING ADENOCARCINOMA OF LUNG. COMPARISON: CT scan of the chest 12/05/2019 TECHNIQUE: After the intravenous administration of 8.97 mCi of FDG 18 triplane whole-body PET-CT was performed from the skull base to the mid thigh. FINDINGS: There is extensive hypermetabolic activity seen scattered throughout the pleural reflections of the right lung. The right hilar mass seen on the CT scan is markedly abnormally hypermetabolic with SUV values as high as 9.17. The abnormal hypermetabolic activity seen scattered throughout the right lung pleura is not as hypermetabolic as the aforementioned hilar mass with SUV values up to 8.72. There is a right pleural effusion with multiple right lower lung field air-fluid levels. No other areas of abnormal hypermetabolic activity are seen in the neck, chest, abdomen, or pelvis. IMPRESSION: Abnormal CT-PET scan as described above. <Electronically signed by Guido Mai > 01/17/20 [id number]
== END ==
LOC: M PLARAD 10:20
PROVIDERS: ATTEND Internal Medicine Pulmonary Disease
DX: C34.01 Malignant neoplasm of right main bronchus (principal); J91.0 Malignant pleural effusion
CPT/HCPCS: 78815; A9552

== ENCOUNTER → 2020-01-26 | Outpatient (CLI) | payer MEDICARE ==
[~2020-01-26] MED LIST changes: +ASPI81TA26 PO; +CALC600C3 PO; +COMBAER6 INH; +D31000TA2 PO; -FLUTISP; +FLUTISP NARES; +FURO20TA2 PO; +GABA-1171 PO; +GLIP5TAB20 PO; +METO1TAB32 PO; +PROA1AER2 INH
[2020-01-26 15:18] LABS: BLOOD UREA NITROGEN 15 MG/DL (7-18); CALCIUM LEVEL 8.7 MG/DL (8.8-10.2); CARBON DIOXIDE LEVEL 33 MEQ/L (21-32); CHLORIDE LEVEL 101 MEQ/L (98-107); CREATININE FOR GFR 0.51 MG/DL (0.55-1.30); GLOMERULAR FILTRATION RATE > 60.0 (>39); GLUCOSE, FASTING 142 MG/DL (70-100); NT-PRO BNP 713 PG/ML (<125); SODIUM LEVEL 140 MEQ/L (136-145)
== END ==
LOC: M PLALAB 11:28
PROVIDERS: ATTEND Internal Medicine Pulmonary Disease
DX: J90 Pleural effusion, not elsewhere classified (principal)

== ENCOUNTER 2020-01-27 15:58 | Inpatient (IN) | payer MEDICARE ==
[2020-01-27] VITALS (23 sets, daily range): BP systolic 97–134; BP diastolic 50–62
[~2020-01-27] VITALS: Ht 154.9 cm; Wt 61.2 kg
[~2020-01-27 15:58] MED LIST changes: -ASPI81TA26 PO; -CALC600C3 PO; -COMBAER6 INH; -D31000TA2 PO; -FURO20TA2 PO; -GABA-1171 PO; -GLIP5TAB20 PO; -METO1TAB32 PO; -PROA1AER2 INH
[2020-01-27] MEDS ORDERED: FURO20TA2 PO (16:38)
[2020-01-27] MEDS ORDERED: METO1TAB32 PO (16:38)
[2020-01-27 16:39] LABS: BASO # 0.1 10^3/uL (0.0-0.2); BASO % 0.3 % (0.0-1.0); EOS # 1.7 10^3/uL (0.0-0.5); EOS % 7.5 % (0.0-3.0); HEMATOCRIT 36.8 % (36.0-47.0); HEMOGLOBIN 11.1 g/dl (12.0-15.5); LYMPH # 1.7 10^3/uL (1.5-5.0); LYMPH % 7.4 % (24.0-44.0); MEAN CORPUSCULAR HEMOGLOBIN 26.3 pg (27.0-33.0); MEAN CORPUSCULAR HGB CONC 30.2 g/dl (32.0-36.5); MEAN CORPUSCULAR VOLUME 87.2 fl (80.0-96.0); MONO # 1.7 10^3/uL (0.0-0.8); MONO % 7.7 % (0.0-5.0); NEUTROPHILS # 17.3 10^3/uL (1.5-8.5); NEUTROPHILS % 76.1 % (36.0-66.0); PLATELET COUNT, AUTOMATED 510 10^3/uL (150-450); RED BLOOD COUNT 4.22 10^6/uL (4.00-5.40); WHITE BLOOD COUNT 22.7 10^3/uL (4.0-10.0)
[2020-01-27 17:17] LABS: ALBUMIN 1.7 GM/DL (3.2-5.2); ALT/SGPT 8 U/L (12-78); BILIRUBIN,DIRECT < 0.1 MG/DL (0.0-0.2); BILIRUBIN,TOTAL 0.3 MG/DL (0.2-1.0); BLOOD UREA NITROGEN 13 MG/DL (7-18); CALCIUM LEVEL 8.7 MG/DL (8.8-10.2); CARBON DIOXIDE LEVEL 33 MEQ/L (21-32); CHLORIDE LEVEL 102 MEQ/L (98-107); CK-MB VALUE MASS < 1.0 NG/ML (<3.6); CPK CREATINE PHOSPHOKINASE 30 U/L (26-192); GLOMERULAR FILTRATION RATE > 60.0 (>39); GLUCOSE, FASTING 162 MG/DL (70-100); MB/CK RELATIVE INDEX 3.33 (< OR =4); NT-PRO BNP 890 PG/ML (<125); POTASSIUM SERUM 3.3 MEQ/L (3.5-5.1); SODIUM LEVEL 142 MEQ/L (136-145); TOTAL PROTEIN 6.5 GM/DL (6.4-8.2); TROPONIN I < 0.02 NG/ML (< 0.10)
[2020-01-27 17:20] LABS: INR 1.14; PROTHROMBIN TIME 14.9 SECONDS (12.5-14.3)
[2020-01-27 17:21] LABS: PARTIAL THROMBOPLASTIN TIME 42.2 SECONDS (24.2-38.5)
[2020-01-27] MEDS ORDERED: POTASSIUM CHLORIDE 10 MEQ SR TABLET PO ONE (17:30)
--- NOTE | 2020-01-27 17:40 | ECGEPIP ---
[facility] - ED Test Date: 2020-01-27 Pat Name: OPAL VALENZUELA Department: Room: - Gender: Female Booky: : 1950 Requested By: BRIANA Menjivar Order Number: [id number] Reading MD: Fabricio Kirby Measurements Intervals Damar Rate: 101 P: 55 NM: 141 QRS: -16 QRSD: 96 T: 24 QT: 344 QTc: 447 Interpretive Statements SINUS TACHYCARDIA LEFTWARD AXIS POSSIBLE LEFT ATRIAL ENLARGEMENT ABNORMAL RHYTHM ECG NONSPECIFIC ST T WAVE CHANGES DELAYED R WAVE PROGRESSION NO PRIOR ECG FOR COMPARISON Electronically Signed on 01-27-2020 17:40:50 EST by Fabricio Kirby
[2020-01-27] MEDS ORDERED: METOPROLOL 5 MG/5 ML VIAL IV STA (17:46)
--- NOTE | 2020-01-27 17:58 | REP ---
INDICATION: CHEST PAIN. COMPARISON: Comparison study January 05, 2020.. TECHNIQUE: Sitting AP portable chest x-ray. FINDINGS: Right hemidiaphragm is elevated, more so than on the prior study consistent with increased right pleural effusion. Moderate cardiac enlargement is observed. There is soft tissue density in the right perihilar region suggesting mass effect. Pulmonary vascular and interstitial markings are increased. Interstitial markings are diffusely increased suggesting interstitial edema. No left pleural effusion is seen. IMPRESSION: Increase in the size the right pleural effusion, [id number]. Diffuse interstitial pattern question pulmonary edema. Mass effect persists in the right hilar and perihilar region. Vascular congestion. Cardiomegaly. <Electronically signed by Schuyler Galeano > 01/27/20 [id number]
[2020-01-27] MEDS ORDERED: DIGOXIN INJ 0.5 MG/2 ML AMP (J1160) IV ONE (18:15)
[2020-01-27] MEDS ORDERED: COMBAER6 INH (18:18)
[2020-01-27] MEDS ORDERED: GLIP5TAB20 PO (18:18)
[2020-01-27] MEDS ORDERED: ASPI81TA26 PO (18:18)
[2020-01-27] MEDS ORDERED: GABA-1171 PO (18:18)
[2020-01-27] MEDS ORDERED: D31000TA2 PO (18:18)
[2020-01-27] MEDS ORDERED: CALC600C3 PO (18:18)
[2020-01-27] MEDS ORDERED: PROA1AER2 INH (18:18)
[2020-01-27] MEDS ORDERED: ACETAMINOPHEN TAB 650MG DOSE (2X325MG) PO PRN (19:00)
[2020-01-27] MEDS ORDERED: MEROPENEM INJ 1 GM in IV 1 EA IV SCH (20:00)
[2020-01-27] MEDS: ADVAIR HFA 115/21MCG INHALER INH SCH (20:00)
[2020-01-27] MEDS: LEVALBUTEROL 1.25 MG/0.5 ML CONCENTRATE NEB INH SCH (20:00)
--- NOTE | 2020-01-27 20:08 | HPEPDOC ---
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 Patient reports that she got up in the morning experience right-sided chest pain and shortness of breath with exertion. She reports that when she lays down. He was slightly better. Patient reports that the pain occurs on the right lower chest, described as aching sensation. Patient denies any central chest pain, palpitations or cough; but does report lightheadedness. Denies any nausea, vomiting, excessive sweating, abdominal pain or constipation. She does report diarrhea this afternoon, described as watery. Denies any urinary discomfort and has not experience any recent fevers or chills Patient reports a poor appetite and has experience a 20 pound weight loss over last 1-2 months. Emergency room, patient was found to have A. fib with RVR and a chest x-ray that was consistent with a right-sided effusion with vascular congestion. Hospitalist services called for further evaluation and treatment. Past Medical History: Recently diagnosed Adenocarcinoma of the right lung (Stage IIIa vs IV) Right sided effusion with rare atypical cells Post- cardiomyopathy HTN DLP NIDDM2 COPD / Childhood asthma TRINY (not compliant with CPAP) Mood disorder Neuropathy Essential tremor Past Surgical History: Cataract extraction bilaterally Right knee arthroplasty Left foot bunionectomy Left wrist fracture Allergies: See below Medications: See below Family History: - Father with a history of lung cancer, heart problems and high cholesterol Social History: - Denies the use of illicit drugs; port social alcohol use; quit smoking in 1984. 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 Review of Systems: 10 point review of systems complete, all negative otherwise stated in HPI Physical exam: - Vitals: BP [123/58], HR [95], RR [18], Sat [93%RA], Temp [98.5F] - General: Lying in bed, Speaking in full sentences, AAOx3 - HEENT: NC, AT, PERRLA - CVS: IrIr, +S1S2, + Systolic murmur - Lungs: Diminished lung sounds are right lung field; no appreciable wheezing, rhonchi or crackles; dullness on percussion of right lung field - Abdomen: Soft, Non-distended, Non-tender - Extremities: 1+ pitting edema bilaterally, No calf tenderness - Neuro: No focal motor or sensory deficit - Skin: No visible rashes Labs: See below Imaging: See below EKG: See below Assessment and Plan: Shortness of breath / R sided chest pain - possibly 2/2 recurrent R effusion, possibly 2/2 malignancy, possibly 2/2 infection - Patient presented to the ER with complaints of worsening right-sided chest pain with shortness of breath - Currently patient is afebrile - Physical reveals diminished lung sounds at right lung field with dullness on percussion - Leukocytosis with neutrophil predominance - Respiratory panel 01/26: Negative - CXR 01/26: Increase in the size the right pleural effusion, [id number]. Diffuse interstitial pattern question pulmonary edema. Mass effect persists in the right hilar and perihilar region. Vascular congestion. Cardiomegaly. - Will get CT chest stat to evaluate effusion / possible infiltrates - Will get blood cultures / sputum cultures / procalcitonin / UA w/ reflex / MRSA screen - Will start broad spectrum antibiotics (Vancomycin + Meropenem) for coverage of HCAP / Post-obstructive PNA - Will discuss with Cardiothoracic surgery about drainage A. fib with RVR - Currently, patients blood pressure is hemodynamically stable - However, when patients HR becomes elevated into the 160s; her systolic BP trends down to 90/100 - Patient has received Metoprolol 5mg IV and Digoxin 250 mcg in the ER - Will c/w Digoxin - Will reintroduce beta blockers if BP remains normotensive - CHADSVAsc 4 - Patient will be started on full anticoagulation; will start Heparin drip Recently diagnosed Adenocarcinoma of the right lung (Stage IIIa vs IV) - Based on oncologys last note on 01/16; depending upon the presence of atypical cells in the pleural space. This could be stage IV adenocarcinoma - Brain MRI 01/11: No acute intracranial abnormality. - PET Scan 01/16: extensive hypermetabolic activity seen scattered throughout t he pleural reflections of the right lung. The right hilar mass seen on the CT scan is markedly abnormally hypermetabolic with SUV values as high as 9.17. The abnormal hypermetabolic activity seen scattered throughout the right lung pleura is not as hypermetabolic as the aforementioned hilar mass with SUV values up to 8.72. There is a right pleural effusion with multiple right lower lung field air-fluid levels. - There have been plans for outpatient thoracoscopic biopsy to finalize staging - Patient is in the process to begin to Keytruda therapy / palliative radiation; however, has not yet started Post- cardiomyopathy - Physical reveals evidence of fluid overload - BNP elevated; possibly 2/2 a. fib with RVR - Imaging consistent with vascular congestion - Will start Furosemide 40 IV BID with hold parameters HTN - Patient takes metoprolol succinate 25 QHS; will hold for now DLP - Not on statin - c/w ASA NIDDM2 - Will stop Glipizide / Metformin - Will start ISS COPD / Childhood asthma - No evidence of exacerbation - c/w Inhaled therapy as ordered TRINY - Not compliant with CPAP Neuropathy / Essential tremor - c/w Gabapentin Mood disorder - c/w Venlafaxine DVT prophylaxis - Will start TEDs/Sequentials - Will start Heparin drip (Post decision to intervene on R effusion) Vital Signs Vital Signs Date Time Temp Pulse Resp B/P (MAP) Pulse Ox O2 Delivery O2 Flow Rate FiO2 01/27/20 19:50 167 114/59 01/27/20 19:17 98.0 24 93 Room Air Laboratory Data Labs 24H Laboratory Tests 2 01/27/20 16:23: Immature Granulocyte % (Auto) 1.0, Neutrophils (%) (Auto) 76.1H, Lymphocytes (%) (Auto) 7.4L, Monocytes (%) (Auto) 7.7H, Eosinophils (%) (Auto) 7.5H, Basophils (%) (Auto) 0.3, Neutrophils # (Auto) 17.3H, Lymphocytes # (Auto) 1.7, Monocytes # (Auto) 1.7H, Eosinophils # (Auto) 1.7H, Basophils # (Auto) 0.1, Nucleated Red Blood Cells % (auto) 0.0, Prothrombin Time 14.9H, Prothromb Time International Ratio 1.14, Activated Partial Thromboplast Time 42.2H, Anion Gap 7L, Glomerular Filtration Rate > 60.0, Calcium Level 8.7L, Total Bilirubin 0.3, Direct Bili schilling < 0.1, Aspartate Amino Transf (AST/SGOT) 7, Alanine Aminotransferase (ALT/SGPT) 8L, Alkaline Phosphatase 100, Total Creatine Kinase 30, Creatine Kinase MB < 1.0, Creatine Kinase MB Relative Index 3.33, Troponin I < 0.02, WZ-Uqp-L-Type Natriuretic Peptide 890H, Total Protein 6.5, Albumin 1.7L, Albumin/Globulin Ratio 0.4L, Thyroid Stimulating Hormone (TSH) 1.610, Free Thyroxine 1.50H CBC/BMP Laboratory Tests 01/27/20 16:23 Microbiology Microbiology 01/27/20 Respiratory Virus Panel (PCR) ([facility]) - Final, Complete Home Medications Scheduled Aspirin (Aspirin EC) 81 Mg Tablet.dr, 81 MG PO DAILY Calcium Carbonate/Vitamin D3 (Calcium 600+D Softgel) 1 Each Capsule, 1 CAP PO BID Cholecalciferol (Vitamin D3) (Vitamin D3) 1,000 Unit Tablet, 2,000 UNITS PO DAILY Dulaglutide (Trulicity) 0.75 Mg/0.5 Ml Pen.injctr, 0.75 MG SC QWEEK SUNDAYS Fluticasone/Vilanterol (Breo Ellipta 100-25 Mcg INH) 1 Each Blst.w.dev, 1 PUFF INH DAILY Furosemide (Furosemide) 20 Mg Tablet, 20 MG PO DAILY Gabapentin (Gabapentin) 100 Mg Capsule, 200 MG PO BID Glipizide (Glipizide ER) 5 Mg Tab.er.24, 5 MG PO DAILY Glucosamine HCl (Vegetarian Glucosamine) 750 Mg Tab, 750 MG PO BID Magnesium Oxide (Magnesium) 400 Mg Capsule, 400 MG PO QHS Metformin HCl (Metformin HCl) 1,000 Mg Tab, 1,000 MG PO BID Metoprolol Succinate (Metoprolol Succinate) 25 Mg Tab.er.24h, 25 MG PO QHS Venlafaxine HCl (Venlafaxine HCl ER) 150 Mg Cap, 150 MG PO DAILY Scheduled PRN Albuterol Sulfate (Proair Respiclick) 90 Mcg Aer.pow.ba, 2 PUFF INH Q4H PRN for SHORTNESS OF BREATH Fluticasone Propionate (Fluticasone Propionate) 50 Mcg/Act Spr, 1 SPRAY NARES QHS PRN for CONGESTION Hydrocodone/Acetaminophen (Hydrocodone-Acetamin 5-325 mg) 1 Each Tablet, 1 TAB PO Q4H PRN for PAIN Ipratropium/Albuterol Sulfate (Combivent Respimat 20-100 Mcg) 4 Gm Mist.inhal, 2 PUFF INH QID PRN for SHORTNESS OF BREATH Meclizine HCl (Meclizine HCl) 25 Mg Tab, 25 MG PO PRN PRN for DIZZINESS Allergies Coded Allergies: Penicillins (Verified Allergy, Intermediate, HIVES, 12/26/19) aspirin (Verified Allergy, Intermediate, HIVES WITH NORMAL DOSE FOR SE VERAL DAYS, 12/26/19) nickel (Verified Allergy, Intermediate, rash, swelling, 12/26/19) MAVIS JONES MD Jan 27, 2020 20:08
[2020-01-27] MEDS ORDERED: FLUTICASONE PROP 0.05% NASAL SPRAY 16 GM (FLONASE) NARES PRN (20:15)
[2020-01-27] MEDS ORDERED: LEVALBUTEROL 1.25 MG/0.5 ML CONCENTRATE NEB INH PRN (20:15)
[2020-01-27] MEDS ORDERED: NORCO, ANEXSIA 5/325MG TABLET (HYDROcodone/ACETAMINOPHEN) PO PRN (20:30)
[2020-01-27] MEDS ORDERED: ONDANSETRON 4MG/2ML VIAL IV PRN (20:30)
[2020-01-27] MEDS ORDERED: BISACODYL 10 MG SUPP PR PRN (20:30)
[2020-01-27] MEDS ORDERED: PERCOCET 5MG/325MG TAB PO PRN ×2 (20:30)
[2020-01-27] MEDS: FUROSEMIDE 40MG/4ML VIAL (J1940) IV SCH (20:30)
[2020-01-27] MEDS ORDERED: MIDAZOLAM INJ 2MG/2ML VIAL (J2250 PER 1MG) As Ordered ONE ×2 (20:45→20:46)
[2020-01-27] MEDS ORDERED: flumazeniL 0.5 MG/5 ML VIAL As Ordered ONE (20:46)
[2020-01-27 20:50] LABS: LDH LACTATE DEHYDROGENASE 173 U/L (84-246)
[2020-01-27] MEDS ORDERED: LIDOCAINE 1% MDV 20ML VIAL As Ordered ONE (20:50)
[2020-01-27] MEDS: HumaLOG INSULIN (NovoLOG) PER UNIT SC SCH (21:00)
--- NOTE | 2020-01-27 21:06 | REPVR ---
PROCEDURE INFORMATION: Exam: CT Chest Without Contrast; Diagnostic Exam date and time: 01/27/2020 8:04 PM Age: 69 years old Clinical indication: Shortness of breath; Additional info: SOB / R effusion TECHNIQUE: Imaging protocol: Diagnostic computed tomography of the chest without contrast. 3D rendering (Not supervised by radiologist): MIP and/or 3D reconstructed images were created by the technologist. Radiation optimization: All CT scans at this facility use at least one of these dose optimization techniques: automated exposure control; mA and/or kV adjustment per patient size (includes targeted exams where dose is matched to clinical indication); or iterative reconstruction. COMPARISON: CT Chest with contrast 12/05/2019 10:55 AM FINDINGS: Lungs: Thickening of the interlobular septa bilaterally, right side greater than left. Thickening of the intra lobular septa as well. Complete atelectasis and consolidation of the right lower lobe. The right lower lobe bronchus appears occluded. On the left patchy mixed ground-glass and crazy paving opacities present. Pleural space: There is a right-sided pleural thickening with moderate size right pleural effusion. Loculated right hydropneumothorax posteriorly. Heart: There is mitral annular calcification. Aorta: Atheromatous uncoiling of the aorta with no evidence of aneurysm. Lymph nodes: Unremarkable. No enlarged lymph nodes. Spleen: Calcified splenic granulomas noted. Bones/joints: Unremarkable. No acute fracture. Soft tissues: Unremarkable. IMPRESSION: 1. Right-sided hydropneumothorax not significantly changed when compared with plain film performed 01/11/2020. 2. Complete atelectasis and consolidation of the right lower lobe with occlusion of the right lower lobe bronchus. The consolidation and atelectasis has progressed since the previous CT scan dated 12/05/2019. 3. Progressive pulmonary interstitial thickening and scattered ground-glass and crazy paving opacities suggest interstitial pneumonitis. 4. Progressive pleural thickening at the right lung base may reflect infection. There is no nodularity which might be expected with a pleural neoplasm. Electronically signed by: Barbara Solorzano On 01/27/2020 21:06:58 PM
[2020-01-27 21:28] LABS: ABG pH (ARTERIAL) 7.549 UNITS (7.350-7.450)
[2020-01-27 21:29] LABS: ABG BASE EXCESS 11.7 (-2.0-2.0); ABG HCO3 35.2 MEQ/L (22.0-26.0); ABG O2 SATURATION 98.7 % (95.0-99.0); ABG PARTIAL PRESSURE CO2 41.2 mmHg (35.0-45.0); ABG PARTIAL PRESSURE O2 118.8 mmHg (75.0-100.0); ABG STANDARD HCO3 35.5 MEQ/L (22.0-26.0); ABG TOTAL CO2 36.4 MEQ/L (23.0-31.0)
[2020-01-27 22:14] LABS: APPEARANCE, BODY FLUID CLOTTED (CLEAR); PLEURAL FL COLOR RED (COLORLESS); SOURCE, BODY FLUID PLEURAL
[2020-01-27 22:20] LABS: PH BODY FLUID 7.312 UNITS (NOT ESTABLISHED); SOURCE, BODY FLUID pH PLEURAL
[2020-01-27] MEDS: VANCOMYCIN HCL 1,000 MG, VIAL MATE ADAPTER 1 EACH in D5W 250 ML IV SCH (22:40)
[2020-01-27] MEDS: HEPARIN SOD (PORCINE) 5000UNITS/ML 1ML VIAL/SYRINGE SC SCH (22:40)
[2020-01-27] MEDS: MAGNESIUM OXIDE 400 MG TAB (MAG-OX) PO SCH (22:41)
[2020-01-27] MEDS: GABAPENTIN 100 MG CAP PO SCH (22:41)
[2020-01-27] MEDS: KETOROLAC 30 MG/ML 1ML VIAL IV SCH (22:41)
[2020-01-27] MEDS: DOCUSATE SODIUM 100MG CAPSULE PO SCH (22:41)
[2020-01-27 22:48] LABS: AMYLASE, BODY FLUID 20 U/L (NOT ESTABLISHED); CHOLESTEROL, BODY FLUID < 50 MG/DL (NOT ESTABLISHED); LDH, BODY FLUID 815 U/L (NOT ESTABLISHED); SOURCE, BODY FLUID ALBUMIN PLEURAL; SOURCE, BODY FLUID AMYLASE PLEURAL; SOURCE, BODY FLUID CHOL PLEURAL; SOURCE, BODY FLUID GLUCOSE PLEURAL; SOURCE, BODY FLUID LDH PLEURAL; SOURCE, BODY FLUID TOT PROTEIN PLEURAL; SOURCE, BODY FLUID TRIG PLEURAL; TOTAL PROTEIN, BODY FLUID 3.5 G/DL (NOT ESTABLISHED); TRIGLYCERIDE, BODY FLUID 36 MG/DL (NOT ESTABLISHED)
--- NOTE | 2020-01-27 22:57 | REPVR ---
PROCEDURE INFORMATION: Exam: XR Chest, 2 Views Exam date and time: 01/27/2020 10:14 PM Age: 69 years old Clinical indication: Device placement; Chest tube; Additional info: Chest tube placement TECHNIQUE: Imaging protocol: XR of the chest Views: 2 views. COMPARISON: CT Chest without contrast 01/27/2020 8:00 PM FINDINGS: Lungs: Patchy airspace and interstitial densities elsewhere in both lungs. Pleural space: There is a right hydropneumothorax which appears similar to the prior chest CT. A chest tube is noted on the right projecting in the right posterior costophrenic sulcus. Exact position of the tube is difficult to determine however. Heart/Mediastinum: Unremarkable. No cardiomegaly. Bones/joints: Skeletal degenerative changes are noted. IMPRESSION: 1. Persistent right hydropneumothorax. 2. Right chest tube projects in the right posterior costophrenic sulcus. Electronically signed by: Franck Whittington On 01/27/2020 22:57:37 PM
[2020-01-27 22:59] LABS: CK-MB VALUE MASS < 1.0 NG/ML (<3.6); CPK CREATINE PHOSPHOKINASE 25 U/L (26-192); TROPONIN I < 0.02 NG/ML (< 0.10)
[2020-01-27] MEDS ORDERED: GLUCOSE 4GM CHEW TABLET PO PRN (23:00)
[2020-01-27] MEDS ORDERED: GLUCAGON INJ 1MG VIAL SC PRN (23:00)
[2020-01-27] MEDS ORDERED: DEXTROSE 50% 50 ML SYRINGE IV PRN (23:00)
[2020-01-28] VITALS (10 sets, daily range): BP systolic 102–144; BP diastolic 57–63
[2020-01-28] MEDS: DIGOXIN 0.25 MG TAB PO SCH ×4 (00:09→17:03)
[2020-01-28] MEDS: KETOROLAC 30 MG/ML 1ML VIAL IV SCH ×4 (03:24→20:15)
[2020-01-28] MEDS ORDERED: LIDOCAINE 1% MDV 20ML VIAL SC ONE (03:30)
[2020-01-28 05:26] LABS: BASO # 0.1 10^3/uL (0.0-0.2); BASO % 0.4 % (0.0-1.0); EOS # 1.8 10^3/uL (0.0-0.5); EOS % 8.3 % (0.0-3.0); HEMATOCRIT 36.4 % (36.0-47.0); HEMOGLOBIN 11.1 g/dl (12.0-15.5); LYMPH # 2.5 10^3/uL (1.5-5.0); LYMPH % 11.5 % (24.0-44.0); MEAN CORPUSCULAR HEMOGLOBIN 26.9 pg (27.0-33.0); MEAN CORPUSCULAR HGB CONC 30.5 g/dl (32.0-36.5); MEAN CORPUSCULAR VOLUME 88.1 fl (80.0-96.0); MONO # 1.4 10^3/uL (0.0-0.8); MONO % 6.4 % (0.0-5.0); NEUTROPHILS # 15.5 10^3/uL (1.5-8.5); NEUTROPHILS % 72.3 % (36.0-66.0); PLATELET COUNT, AUTOMATED 465 10^3/uL (150-450); RED BLOOD COUNT 4.13 10^6/uL (4.00-5.40); WHITE BLOOD COUNT 21.4 10^3/uL (4.0-10.0)
[2020-01-28 05:44] LABS: BLOOD UREA NITROGEN 12 MG/DL (7-18); CARBON DIOXIDE LEVEL 32 MEQ/L (21-32); CHLORIDE LEVEL 101 MEQ/L (98-107); CK-MB VALUE MASS < 1.0 NG/ML (<3.6); CPK CREATINE PHOSPHOKINASE 21 U/L (26-192); CREATININE FOR GFR 0.46 MG/DL (0.55-1.30); GLOMERULAR FILTRATION RATE > 60.0 (>39); GLUCOSE, FASTING 108 MG/DL (70-100); MAGNESIUM LEVEL 1.7 MG/DL (1.8-2.4); MB/CK RELATIVE INDEX 4.76 (< OR =4); POTASSIUM SERUM 3.5 MEQ/L (3.5-5.1); SODIUM LEVEL 139 MEQ/L (136-145); TROPONIN I < 0.02 NG/ML (< 0.10)
[2020-01-28 05:50] LABS: ABG BASE EXCESS 8.2 (-2.0-2.0); ABG HCO3 33.1 MEQ/L (22.0-26.0); ABG O2 SATURATION 99.5 % (95.0-99.0); ABG PARTIAL PRESSURE CO2 47.4 mmHg (35.0-45.0); ABG PARTIAL PRESSURE O2 156.9 mmHg (75.0-100.0); ABG STANDARD HCO3 32.1 MEQ/L (22.0-26.0); ABG TOTAL CO2 34.6 MEQ/L (23.0-31.0); ABG pH (ARTERIAL) 7.462 UNITS (7.350-7.450)
--- NOTE | 2020-01-28 06:40 | ECGEPIP ---
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1950 Requested By: BRIANA Menjivar Order Number: [id number] Reading MD: Fabricio Kirby Measurements Intervals [place] Rate: 150 P: KS: 0 QRS: -11 QRSD: 86 T: 148 QT: 266 QTc: 421 Interpretive Statements ATRIAL FIBRILLATION WITH RAPID VENTRICULAR RESPONSE LETWARD AXIS DELAYED R WAVE PROGRESSION LOW QRS VOLTAGE IN PRECORDIAL LEADS ST DEVIATION AND MODERATE T-WAVE ABNORMALITY, CONSIDER LATERAL ISCHEMIA CW 01/27/20 RATE INCREASED RHYTHM CHANGE NONSPECIFIC ST T WAVE CHANGES - RATE RELATED VS ISCHEMIA CLINICAL CORRELATION ADVISED Electronically Signed on 01-28-2020 6:40:05 EST by Fabricio Kirby
[2020-01-28] MEDS: HumaLOG INSULIN (NovoLOG) PER UNIT SC SCH ×4 (07:30→21:00)
[2020-01-28] MEDS: LEVALBUTEROL 1.25 MG/0.5 ML CONCENTRATE NEB INH SCH ×4 (08:00→20:00)
[2020-01-28] MEDS: ADVAIR HFA 115/21MCG INHALER INH SCH ×2 (08:13→20:01)
--- NOTE | 2020-01-28 08:20 | REPVR ---
PROCEDURE INFORMATION: Exam: CT Chest Without Contrast; Diagnostic Exam date and time: 01/28/2020 7:47 AM Age: 69 years old Clinical indication: Device placement; Chest tube; Other: Pleural effusion; Additional info: Pleural effusion, cathether placement TECHNIQUE: Imaging protocol: Diagnostic computed tomography of the chest without contrast. 3D rendering (Not supervised by radiologist): MIP and/or 3D reconstructed images were created by the technologist. Radiation optimization: All CT scans at this facility use at least one of these dose optimization techniques: automated exposure control; mA and/or kV adjustment per patient size (includes targeted exams where dose is matched to clinical indication); or iterative reconstruction. COMPARISON: CT Chest without contrast 01/27/2020 8:00 PM FINDINGS: Tubes, catheters and devices: Right-sided pigtail catheter is seen with its tip at the right lung base. Lungs: There is significant narrowing of the right bronchus intermedius with filling defects occluding the right lower lobe segmental bronchi as well as the right middle lobe bronchi with total atelectasis of the right middle and lower lobes. Bilateral increased interstitial markings with small patchy opacities seen in both lungs with peripheral more dominant distribution. Pleural space: There is thickening of the right lung pleura with moderate effusion seen containing multiple locules of air. Heart: There is prominent vasculature in the right pericardial region. There is severe calcifications of the mitral annulus. There is mild calcification of the aortic root. Pulmonary arteries: The pulmonary trunk is significantly dilated at 4.1 centimetres. Aorta: See "Heart" finding. Lymph nodes: Multiple prominent mediastinal lymph nodes seen measuring up to 3.6 x 2.3 cm in the pretracheal region. Evaluation of the gerry is limited due to lack of IV contrast. Prominent lymph nodes are also seen in the anterior mediastinum. Bones/joints: Anterior thoracic spine osteophytes seen. Soft tissues: Unremarkable. IMPRESSION: 1. Interval placement of right-sided pigtail catheter with no significant change in right-sided hydropneumothorax with significantly thickened pleura. Multiple locules of air seen suggesting complex nature of the fluid in the right pleural space. 2. Likely right hilar mass/adenopathy significantly narrowing the right bronchus intermedius with occlusion of the right lower and middle lobes segmental bronchi either with mucous plugs or infiltrative process with total atelectasis of the right middle and lower lobes. Underlying right middle or lower lobe infiltrative process cannot be excluded. 3. Significant mediastinal and right hilar adenopathy. 4. Nonspecific bilateral increased interstitial markings with patchy dominant peripheral opacities could be secondary to infectious/inflammatory etiologies including COVID 19 pneumonia. Underlying metastatic lesions cannot be excluded. 5. Markedly dilated pulmonary trunk at 4.1 cm suggestive of severe pulmonary hypertension. 6. Severe mitral annulus calcifications. Electronically signed by: Reginald Montesinos On 01/28/2020 08:20:15 AM
[2020-01-28] MEDS: MEROPENEM INJ 1 GM in IV 1 EA IV SCH ×2 (08:31→15:11)
[2020-01-28] MEDS: ASPIRIN 81 MG ENTERIC TAB PO SCH (08:35)
[2020-01-28] MEDS: PANTOPRAZOLE 40MG TAB (PROTONIX) PO SCH (08:35)
[2020-01-28] MEDS: VENLAFAXINE **XR** 75MG CAPSULE PO SCH (08:35)
--- NOTE | 2020-01-28 08:35 | REP ---
INDICATION: pleural effusion. COMPARISON: January 27, 2020.. TECHNIQUE: Two views.. FINDINGS: A right pleural drainage catheter persists in the right posterior pleural angle. Loculated hydropneumothorax is seen in the right base unchanged from yesterday's radiograph. Fullness in the right perihilar region persists unchanged. Diffuse interstitial fibrosis pattern is noted on the left and in the remainder of the right lung. Heart size is unchanged. Monitoring electrodes are seen. IMPRESSION: Loculated hydropneumothorax at the right base. Right pleural drainage catheter. No change from comparison study.. <Electronically signed by Schuyler Galeano > 01/28/20 [id number]
[2020-01-28] MEDS: GABAPENTIN 100 MG CAP PO SCH ×2 (08:36→20:15)
[2020-01-28] MEDS: VITAMIN D 1,000 INTERNATIONAL UNITS TABLET PO SCH (08:36)
[2020-01-28] MEDS: FUROSEMIDE 40MG/4ML VIAL (J1940) IV SCH ×2 (08:37→17:02)
[2020-01-28] MEDS: HEPARIN SOD (PORCINE) 5000UNITS/ML 1ML VIAL/SYRINGE SC SCH ×2 (08:38→20:15)
[2020-01-28] MEDS: DOCUSATE SODIUM 100MG CAPSULE PO SCH ×2 (08:38→20:15)
[2020-01-28] MEDS ORDERED: MAG SULF 1GM/100ML (MAG RUN) 1 GM in IV 1 EA IV ONE (09:00)
[2020-01-28] MEDS: MOM 30ML SUSPENSION UDC PO SCH (09:00)
[2020-01-28] MEDS: VANCOMYCIN HCL 1,000 MG, VIAL MATE ADAPTER 1 EACH in D5W 250 ML IV SCH (09:41)
[2020-01-28] MEDS ORDERED: ALTEPLASE 2MG/2ML VIAL XX ONE (10:00)
[2020-01-28] MEDS: MAGNESIUM OXIDE 400 MG TAB (MAG-OX) PO SCH (20:15)
[2020-01-29] VITALS (14 sets, daily range): BP systolic 116–149; BP diastolic 55–70
[2020-01-29] MEDS: METOPROLOL SUCC *XL* 25MG TAB (TopROL *XL*) PO SCH ×2 (00:15→20:23)
[2020-01-29] MEDS: MEROPENEM INJ 1 GM in IV 1 EA IV SCH ×3 (00:16→15:01)
[2020-01-29] MEDS: KETOROLAC 30 MG/ML 1ML VIAL IV SCH ×4 (02:20→20:23)
[2020-01-29 04:34] LABS: BASO # 0.1 10^3/uL (0.0-0.2); BASO % 0.2 % (0.0-1.0); EOS % 9.7 % (0.0-3.0); HEMATOCRIT 32.5 % (36.0-47.0); HEMOGLOBIN 10.2 g/dl (12.0-15.5); LYMPH % 9.5 % (24.0-44.0); MEAN CORPUSCULAR HEMOGLOBIN 27.1 pg (27.0-33.0); MEAN CORPUSCULAR HGB CONC 31.4 g/dl (32.0-36.5); MEAN CORPUSCULAR VOLUME 86.4 fl (80.0-96.0); MONO # 1.2 10^3/uL (0.0-0.8); MONO % 5.9 % (0.0-5.0); NEUTROPHILS # 15.4 10^3/uL (1.5-8.5); PLATELET COUNT, AUTOMATED 435 10^3/uL (150-450); RED BLOOD COUNT 3.76 10^6/uL (4.00-5.40); WHITE BLOOD COUNT 20.8 10^3/uL (4.0-10.0)
[2020-01-29 04:53] LABS: BLOOD UREA NITROGEN 11 MG/DL (7-18); CALCIUM LEVEL 8.6 MG/DL (8.8-10.2); CARBON DIOXIDE LEVEL 32 MEQ/L (21-32); CHLORIDE LEVEL 101 MEQ/L (98-107); CREATININE FOR GFR 0.49 MG/DL (0.55-1.30); GLOMERULAR FILTRATION RATE > 60.0 (>39); GLUCOSE, FASTING 121 MG/DL (70-100); MAGNESIUM LEVEL 1.8 MG/DL (1.8-2.4); POTASSIUM SERUM 3.4 MEQ/L (3.5-5.1); SODIUM LEVEL 139 MEQ/L (136-145)
--- NOTE | 2020-01-29 06:58 | RO ---
OPERATIVE NOTE DATE OF OPERATION: 01/28/2020 PREPROCEDURE DIAGNOSIS: Retained pleural effusion gelatinous in nature. POSTPROCEDURE DIAGNOSIS: Retained pleural effusion gelatinous in nature. SURGEON: Nate Samuel M.D. PROCEDURE: TPA pleurolysis. FINDINGS: After disconnecting the pigtail catheter from the Pleur-Evac and using the Luer Lock adaptor on the pigtail catheter, it was very difficult to infuse the tPA. Nevertheless, we were successful. DESCRIPTION OF PROCEDURE: The patient's catheter was disconnected with the Pleur-Evac and 6 mg of tPA and 50 mL of normal saline were infused into the pleura. As noted above, this was very difficult and required an extraordinary amount of force. It did not look as if the catheter was leaking from the skin. I could only assume that the catheter is blocked and hopefully the tPA pleurolysis will unblock the catheter and drain her pleural effusion. Once again checking on the position of the catheter, it is in good position and it does not look to be kinked within the chest. The patient was shaken from side to side to distribute the tPA. The catheter will be unclamped in four hours.
--- NOTE | 2020-01-29 06:58 | RO ---
OPERATIVE NOTE DATE OF OPERATION: 01/27/2020 PREOPERATIVE DIAGNOSIS: Pleural effusion probably malignant, rule out empyema. POSTOPERATIVE DIAGNOSIS: Pleural effusion probably malignant, rule out empyema. SURGEON: Nate Samuel M.D. PROCEDURE: Insertion of a pigtail catheter. DESCRIPTION OF PROCEDURE: The site of entry was marked on the right side and sterilely prepped and draped in the usual fashion. An incision was made and the pigtail catheter was placed through the chest until a pop was felt. The catheter was advanced. The stylet was removed and the pigtail catheter was activated. I only got approximately 9 mL of serosanguineous fluid more serous than sanguineous. There was quite a bit of air, which eventually resolved. She had air in the chest from a prior thoracentesis. The chest catheter was attached to the Pleur-Evac. Specimens were sent for bacteriology, hematologies, and chemistries. If we get more out from the chest tube in the morning, I will send that for cytology.
[2020-01-29] MEDS: ADVAIR HFA 115/21MCG INHALER INH SCH ×2 (07:14→20:21)
[2020-01-29] MEDS: LEVALBUTEROL 1.25 MG/0.5 ML CONCENTRATE NEB INH SCH ×4 (07:14→20:00)
--- NOTE | 2020-01-29 07:29 | CR ---
CONSULTATION REASON FOR CONSULTATION: The patient is seen at the request of Dr. Dasilva of the hospital service for shortness of breath and a pleural effusion. 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 She has been seen by oncology and was scheduled to start Keytruda. There was some question as to staging. PET scan done 01/14 shows hypermetabolic uptake along the pleural space and in a right subcutaneous nodule. This is clearly stage IV disease. About three to four days ago, she started to become short of breath and the shortness of breath has continued and progressed to such that she cannot get up out of bed to walk to the bathroom without getting short of breath. She denies fever or chills, but has sweats. She states she has always had sweats, however, for most of her life. She denies cough or sputum production and certainly no hemoptysis. She has developed right-sided pleuritic-type chest pain, which hurts when taking a deep breath over the last few days. There has been no dysphagia, but she has very little appetite and is not eating very much. PAST MEDICAL ILLNESSES: 1. Diabetes. 2. Hypertension. 3. Essentially tremor. 4. TRINY not compliant with CPAP. 5. Hyperlipidemia. 6. History of cardiomyopathy after a section at [facility]. 7. Childhood asthma. PAST SURGICAL HISTORY: 1. Bilateral cataract replacements. 2. Right knee arthroplasty. 3. Fractured wrist. 4. Prior as noted above. TRAVEL HISTORY: She has been to the [facility] and [facility] in the remote past. EXPOSURES: No dogs, birds, or cats presently. Has never had birds. HABITS: Smoked up to two packs per day of [place] for approximately 30 years. Alcohol only very occasionally. Denies illicit drugs. 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 No convincing asbestos exposure. FAMILY HISTORY: Father of lung cancer as did her brother along with COPD. Both were smokers. ALLERGIES: PENICILLIN, which causes hives. ASPIRIN, which causes hives. REVIEW OF SYSTEMS: Constitutional: See HPI. Without fever or chills, but has sweats. No night sweats. Eyes: Without diplopia. Without amaurosis fugax. Without prior jaundice. Mouth is edentulous. Wears dentures, which she does not have right now. Presently complains of a very dry mouth. Respiratory: See HPI. Cardiac: When admitted to the emergency room, she was found to be in atrial fibrillation with rapid ventricular response. She was given digoxin and at the time of my examination, she is in sinus rhythm with a rate of about 80. She was not aware of her arrhythmia. Denies history of myocardial infarction or intermittent claudication. She has noted leg edema in the past three to four days. GI: Without nausea, vomiting, or constipation. She does have chronic diarrhea without hematemesis, melena, or hematochezia. Denies abdominal pain. : Without dysuria, hematuria, or history of renal stones. Neurologic: Has an essential tremor without paresthesias, paralysis, or prior seizures. Endocrine: With diabetes. Without thyroid disease. Psychiatric: Without pathological anxieties, depressions, or psychoses. MEDICATIONS: - aspirin 81 mg once daily - vitamin D3 and calcium one b.i.d. - Trulicity 0.75 mg subcutaneous once weekly on Sundays - Breo/Ellipta 100/25 one puff daily - Lasix 20 mg once daily - gabapentin 200 mg p.o. b.i.d. - glipizide 5 mg once daily - magnesium oxide 400 mg at bedtime - metformin 1000 mg b.i.d. - metoprolol 25 mg at bedtime - venlafaxine 150 mg p.o. once daily PHYSICAL EXAMINATION: GENERAL: Well-developed and well-nourished white female in no acute respiratory distress, lying comfortably inclined at about 30 degrees. VITAL SIGNS: Temperature is 98.0, heart rate of 89 in sinus rhythm, respiratory rate of 20 without the use of accessory muscle, 94% saturated on room air, and blood pressure is 131/61. HEENT: Eyes with pupils equal, round, reactive to light. Extraocular movements intact. Sclerae nonicteric. Nose without deformity. Mouth shows mucous membranes to be dry with increased mucous. They are pink and there is no thrush. Lips and gums are without lesions. Head is normocephalic. NECK: Supple. There is no jugular venous distention. No subcutaneous emphysema. Trachea is midline. She has 2+ carotid upstrokes. She has what is probably a transmitted murmur and not bilateral bruits. There is no thyromegaly. LUNGS: Show markedly decreased breath sounds on the right side with E:A egophony in the right lower hemithorax. She has a dull percussion note almost throughout the entire chest. Her left lung shows inspiratory rales. These do not clear with coughing. Percussion note is full to the diaphragm. CARDIAC: Shows a 2-3 systolic ejection murmur heard best at the right upper sternal border. There is also one at the base, which is lower pitched. I cannot feel her PMI. S1, S2 are normal. ABDOMEN: Soft and nontender. Bowel sounds are positive. There is no hepatosplenomegaly. No CVA tenderness. EXTREMITIES: Show 1+ pretibial edema. No calf tenderness. No differential swelling of the upper extremities. SKIN: Warm, dry, and perfuse without cyanosis or mottling including that of the nail beds and knees. NEUROLOGIC: Cranial nerves II-XII intact. Gross motor intact. Gross sensation intact. Gait is not tested. PSYCHIATRIC: Shows her to be awake, alert, and oriented x3 with appropriate mood and affect and conversational. INVESTIGATIONS: Her white count is 22.7 with a hemoglobin and hematocrit of 11.1 and 36.8 with a platelet count of 510,000. Differential shows 76% neutrophils, 7% lymphocytes, 7% monocytes. There are no immature forms or toxic granulations reported. Her chemistries show a potassium of 3.3 with a total CO2 of 33, which is only slightly elevated. BUN and creatinine are 13 and 0.5 with a glucose of 162 and a calcium of 8.7. AST and ALT are 7 and 8 respectively with an albumin of 1.7. Her blood gases show a pH of 7.54, pCO2 of 41, pO2 of 118 with a base excess of 11.7. PT/INR are 14.9 and 1.14 respectively with a PTT of 42 seconds. Her chest x-ray shows an opacity in the right lower hemithorax and is done portably. She has had two chest CTs, one on 12/05/2019 and one today. The one on 12/05/2019, shows a hilar mass. She also has mediastinal lymphadenopathy particularly in the subcarina. Her lung is fully expanded; however. However, on today's chest CT the right bronchus intermedius is completely occluded with postobstructive atelectasis and/or mass distal to the obstruction. Surrounding this atelectatic and/or malignant mass, there is a pleural effusion, which is probably only about 200 to 300 mL. She has multiple studs on the chest CT in the pleural. This can particularly be seen in the upper hemithorax. They are scattered throughout. There is air within the pleural fluid from a prior thoracentesis. There is no pericardial effusion. Her adrenals have a normal configuration and I do not see any liver lesions. Her PET scan done on 01/15/2020, as noted above shows hypermetabolic uptake in the hilar mass with what looks to be surrounding atelectatic lung. She has hypermetabolic uptake throughout the pleura both inferiorly and superiorly. There is no uptake in the adrenals nor in the liver. There is a subcutaneous nodule, which is hypermetabolic on the right posterior chest just beneath the skin at about the level of the sternal notch. IMPRESSION: 1. Stage IV poorly differentiated adenocarcinoma. 2. Pleural effusion. 3. Leukocytosis. 4. Postobstructive atelectasis maybe pneumonia. 5. Diabetes. 6. Hypertension. 7. Hyperlipidemia. 8. Mild aortic stenosis and aortic insufficiency. 9. Possible parapneumonic effusion and with pneumonia. PLAN AND DISCUSSION: We discussed her at cancer conference just last week and it was posed to me as to whether to place a PleurX catheter at that time. Because of her consolidative mass, at that time we could remove the fluid, but the lung was not going to expand to the chest wall and I saw no reason to remove the fluid. It was hoped that since she had a high PD-L1 expression that she would respond to the Keytruda. Things, however, have changed with the leukocytosis and the sharp pleuritic chest pain. I have to assume that this is going to be a parapneumonic effusion and I will therefore, place a pigtail catheter. We will send the fluid off with the requisite studies.
--- NOTE | 2020-01-29 08:04 | REP ---
INDICATION: pleural effusion. COMPARISON: Comparison chest x-ray January 28, 2020. TECHNIQUE: Two views.. FINDINGS: Air-fluid levels are seen in loculated pleural collections in the right lateral pleural angle. These are slightly smaller. There is a pigtail catheter in the right base posteriorly. On lateral radiograph, today this is seen to be withdrawn from the pleural space and is noted in the posterior extra thoracic soft tissues. Pleural thickening and right perihilar enlargement are again seen. Left lung is unchanged with diffuse interstitial fibrosis pattern. IMPRESSION: Pleuroparenchymal findings similar to the previous day's study. However, the pigtail catheter is seen to have withdrawn into the extra thoracic soft tissues posteriorly.. <Electronically signed by Schuyler Galeano > 01/29/20 0800
[2020-01-29] MEDS: ASPIRIN 81 MG ENTERIC TAB PO SCH (08:08)
[2020-01-29] MEDS: GABAPENTIN 100 MG CAP PO SCH ×2 (08:09→20:23)
[2020-01-29] MEDS: VENLAFAXINE **XR** 75MG CAPSULE PO SCH (08:09)
[2020-01-29] MEDS: glipiZIDE XL 5 MG TABCR PO SCH (08:09)
[2020-01-29] MEDS: HumaLOG INSULIN (NovoLOG) PER UNIT SC SCH ×4 (08:09→20:24)
[2020-01-29] MEDS: PANTOPRAZOLE 40MG TAB (PROTONIX) PO SCH (08:10)
[2020-01-29] MEDS: DOCUSATE SODIUM 100MG CAPSULE PO SCH ×2 (08:10→20:23)
[2020-01-29] MEDS: VITAMIN D 1,000 INTERNATIONAL UNITS TABLET PO SCH (08:10)
[2020-01-29] MEDS: HEPARIN SOD (PORCINE) 5000UNITS/ML 1ML VIAL/SYRINGE SC SCH ×2 (08:11→20:24)
[2020-01-29] MEDS: MOM 30ML SUSPENSION UDC PO SCH (08:11)
[2020-01-29] MEDS: FUROSEMIDE 40MG/4ML VIAL (J1940) IV SCH ×2 (08:12→17:40)
[2020-01-29] MEDS ORDERED: POTASSIUM CHLORIDE 10 MEQ SR TABLET PO ONE (08:15)
[2020-01-29 08:51] LABS: LDH LACTATE DEHYDROGENASE 160 U/L (84-246)
--- NOTE | 2020-01-29 09:34 | IPN ---
PROGRESS NOTE DATE: 01/28/2020 SUBJECTIVE: Ms. Gómez is feeling better today. She has put out very little from the pigtail catheter and, therefore, I set her down to CT scan. The catheter is in excellent position within the pleural space and within the pleural fluid. My own conclusion is that the pleural fluid is gelatinous and probably malignant. Her vital signs show a maximum temperature of 98.0 with a heart rate ranging between 85 and 104 in sinus rhythm. Respiratory rate of 16-18 without the use of accessory muscles. She is 93-99% saturated on two liters nasal cannula. Her blood pressures range between 144/61 to 102/59. Her intake and output for the past 24 hours is recorded as approximately 1100 in and 1000 out for a negativity of 100 mL. She has put out 500 mL of urine but only 30 mL from the chest catheter. She weighs 65.1 kg today compared to 62.8 kg yesterday. PHYSICAL EXAMINATION: On physical examination, her lungs show markedly decreased breath sounds on the right side with a dull percussion on the right side. She has E-to-A egophony in the right lower hemithorax. She has normal vesicular sounds on the left. Percussion note was full to the diaphragm on the left. Cardiac exam shows the 2-3 systolic ejection murmur at the right upper sternal border and also at the left lower sternal border. It radiates to the carotids. S1 and S2 are normal. I cannot feel her point of maximum impulse (PMI). Abdomen is soft and nontender. Bowel sounds are positive. There is no hepatomegaly; no CVA tenderness. Extremities show trace pretibial edema; no calf tenderness. No differential swelling of the upper extremities. Skin is warm, dry and perfused without cyanosis or mottling including that of the nailbeds and knees. Neck is supple. There is no jugular venous distension. No subcutaneous emphysema. Trachea is midline. Mouth shows the mucous membranes to be pink and moist. Lips and gums show no lesions. There is no thrush. Eyes show her pupils to be equal and reactive. Extraocular muscles are intact. Sclerae are nonicteric. Neurologic shows II-XII intact. Normal gross motor, gross sensation intact. Gait is not tested. Psychiatric shows her to be awake, alert and oriented times three with appropriate mood and affect, and conversational. Her white count today is 21.4, essentially unchanged from yesterday at 22.7. Hemoglobin and hematocrit are 11.1 and 36.4, unchanged from yesterday with a platelet count of 465 and stable. Differential shows 72% neutrophils, 11% lymphocytes, 6% monocytes. There are no mature forms of toxic granulations. Chemistries today showed normal electrolytes with BUN and creatinine of 12 and 0.46, and calcium of 9.0 with a corresponding albumin yesterday of 1.7. This gives her a calculated corrected calcium of 10.8 which makes her hypercalcemic. Her chest x-ray today shows opacification of the right hemithorax with multiple air/fluid levels. Catheter looks to be well within the pleural space inferiorly. Left lung shows cephalization of vessels. Her CT scan shows the catheter to be in good position. There is no change in the volume of the pleural effusion. Measuring the Hounsfield density units of the effusion are between 8 and 10 consistent with fluid. There are multiple air/fluid levels within the fluid itself. The entire middle and lower lobes are consolidated. IMPRESSION: 1. Adenocarcinoma, stage IV, right lung to the pleura. 2. Retained pleural effusion, probably gelatinous. 3. Hypertension. 4. Diabetes. 5. Childhood asthma. 6. Obstructive sleep apnea. 7. Essential tremor. PLAN AND DISCUSSION: I will, therefore, check a TP pleurolysis. As I now have proof positive the catheter is in excellent position we should be able to drain the fluid after breaking up its gelatinous nature.
[2020-01-29] MEDS ORDERED: LIDOCAINE 1% MDV 20ML VIAL As Ordered ONE (11:00)
[2020-01-29] MEDS ORDERED: SODIUM BICARBONATE 8.4% INJ 50MEQ 50 ML VIAL As Ordered ONE (11:00)
--- NOTE | 2020-01-29 12:05 | REP ---
INDICATION: POST RIGHT THORA, 2 VIEW. COMPARISON: Comparison chest x-ray January 29, 2020 7:37 a.m... TECHNIQUE: Two views. FINDINGS: A new right cyst sided pleural drainage pigtail catheter is been inserted and the old catheter removed. There is a loculated hydropneumothorax at the right base with much less pleural fluid but some increased intrapleural air. The adjacent right lower lobe remains opacified consistent with atelectasis, infiltrate, and/or tumor. Fullness is again seen in the right perihilar region. Left lung is unchanged. IMPRESSION: Decreased right pleural fluid in the loculated hydropneumothorax cavity in the right base post new percutaneous drainage catheter placement. Otherwise unchanged. <Electronically signed by Schuyler Galeano > 01/29/20 [id number]
--- NOTE | 2020-01-29 12:43 | IPNPDOC ---
Text Note Date of Service The patient was seen on 01/28/20. NOTE Subjective: Complains of right sided chest pain , Denies any SOB. Has pig tail cath in place Physical exam: Vitals: as below General: Sitting in bed, Speaking in full sentences, AAOx3 HEENT: NC, AT, PERRLA CVS: tachycardic, regular rhythm +S1S2, + Systolic murmur Lungs: Diminished lung sounds are right lung field; no appreciable wheezing, rhonchi or crackles; dullness on percussion of right lung field Abdomen: Soft, Non-distended, Non-tender Extremities: 1+ pitting edema bilaterally, No calf tenderness Neuro: No focal motor or sensory deficit Skin: No visible rashes Labs and Radiology: reviewed Assessment and Plan: Patient is 69-year-old female who was recently been diagnosed with adenocarcinoma of the right lung (Stage IV) who presented to the hospital with worsening shortness of breath and right sided chest pain. In Emergency room, patient was found to have A. fib with RVR and a chest x-ray that was consistent with a right-sided effusion with vascular congestion. CT chest showed Right-sided hydropneumothorax not significantly changed when co mpared with plain film performed 01/11/2020. Complete atelectasis and consolidation of the right lower lobe with occlusion of the right lower lobe bronchus. The consolidation and atelectasis has progressed since the previous CT scan dated 12/05/2019. Progressive pulmonary interstitial thickening and scattered ground-glass and crazy paving opacities suggest interstitial pneumonitis. Progressive pleural thickening at the right lung base may reflect infection. There is no nodularity which might be expected with a pleural neoplasm. Persistent Right sided hydropneumothorax unchanged from 01/10 CT chest. had thoracocentesis on 01/04. s/p chest tube placement by Dr Samuel on 01/26 possible some post obstructive pneumonia will continue Meropenem MRSA pcr negative will dc vancomycin. Pleural fluid cultures are pending. Right chest pain due to cancer referred to Dr Peña for possible palliative RT for pain control A. fib with RVR Now in sinus rhythm. Will c/w Digoxin CHADSVAsc 4 will need oil heaterman oral anticoagulation. Recently diagnosed Stage 4 Adenocarcinoma of the right lung PET Scan 01/16: extensive hypermetabolic activity seen scattered throughout the pleural reflections of the right lung. The right hilar mass seen on the CT scan is markedly abnormally hypermetabolic with SUV values as high as 9.17. The abnormal hypermetabolic activity seen scattered throughout the right lung pleura is not as hypermetabolic as the aforementioned hilar mass with SUV values up to 8.72. There is a right pleural effusion with multiple right lower lung field air-fluid levels. Patient is in the process to begin Keytruda therapy / palliative radiation; however, has not yet started Post- cardiomyopathy BNP elevated; possibly 2/2 a. fib with RVR Imaging consistent with vascular congestion Furosemide 40 IV BID with hold parameters HTN Patient takes metoprolol succinate 25 QHS; DLP Not on statin NIDDM2 Will stop Glipizide / Metformin ISS COPD / Childhood asthma No evidence of exacerbation Inhaled therapy as ordered TRINY Not compliant with CPAP Neuropathy / Essential tremor Gabapentin Mood disorder Venlafaxine DVT prophylaxis TEDs/Sequentials / sq heparin. VS,Fishbone, I+O VS, Fishbone, I+O Laboratory Tests 01/27/20 16:23 01/28/20 04:50 Vital Signs Date Time Temp Pulse Resp B/P (MAP) Pulse Ox O2 Delivery O2 Flow Rate FiO2 01/28/20 12:10 97 01/28/20 10:00 18 116/57 (76) 92 Room Air 01/28/20 08:00 97.9 2.0 I&O- Last 24 Hours up to 6 AM 01/28/20 06:00 Intake Total 922 ml Output Total 730 ml Balance 192 ml COSME MORRIS MD Jan 28, 2020 13:21
[2020-01-29 12:53] LABS: PH BODY FLUID 7.506 UNITS (NOT ESTABLISHED); SOURCE, BODY FLUID pH PLEURAL
[2020-01-29 13:00] LABS: SOURCE, BODY FLUID PLEURAL
[2020-01-29 13:01] LABS: APPEARANCE, BODY FLUID CLOUDY (CLEAR); PLEURAL FL COLOR RED (COLORLESS)
[2020-01-29 14:12] LABS: AMYLASE, BODY FLUID 21 U/L (NOT ESTABLISHED); CHOLESTEROL, BODY FLUID < 50 MG/DL (NOT ESTABLISHED); LDH, BODY FLUID 288 U/L (NOT ESTABLISHED); SOURCE, BODY FLUID ALBUMIN PLEURAL; SOURCE, BODY FLUID AMYLASE PLEURAL; SOURCE, BODY FLUID CHOL PLEURAL; SOURCE, BODY FLUID GLUCOSE PLEURAL; SOURCE, BODY FLUID LDH PLEURAL; SOURCE, BODY FLUID TOT PROTEIN PLEURAL; SOURCE, BODY FLUID TRIG PLEURAL; TRIGLYCERIDE, BODY FLUID 29 MG/DL (NOT ESTABLISHED)
--- NOTE | 2020-01-29 14:44 | REP ---
INDICATION: pigtail cath to pleuvac, see spec orders COMPARISON: None. TECHNIQUE: The procedure was performed by Noreen Flynn [facility], under the direct supervision of Dr. Galeano The risks and benefits of the procedure were explained to the patient and an informed consent was obtained both verbally and written. Directly prior to the start of the procedure a formal time-out was completed in the procedure room. Pleural fluid in right lung zone was localized using ultrasound guidance. The skin was prepped and draped in a sterile fashion. Twelve ML of buffered lidocaine was used as a local anesthetic. Using ultrasound guidance an 10 multi side-hole pigtail catheter was inserted using trocar technique. FINDINGS: Two hundred mL of red colored fluid was withdrawn and sent to the laboratory for further analysis. The pigtail catheter was sutured in place, and a soft dressing was applied. The pigtail catheter was then hooked up to a pleura vac system. The patient tolerated the procedure well and there were no immediate complications. After the appropriate amount of monitored convalescence, the patient was discharged from the department. IMPRESSION: Ten German pigtail catheter placement into the right lung zone. 200 mL of red fluid was withdrawn and sent to the lab for further analysis. <Electronically signed by Noreen Flynn > 01/29/20 1325 <Electronically signed by Schuyler Galeano > 01/29/20 [id number]
--- NOTE | 2020-01-29 15:47 | RADENCPD ---
Date/Time of Encounter Date of Encounter: Jan 29, 2020 Time of Encounter: 16:00 Encounter Received consultation request for Ms. Gmóez. I note her pleurex is now draining. I will see her early AM on 01/30/20. I intend to offer her palliative RT to the obstructing right hilar mass and will look to simulate her and start her this week if she agrees to proceed. ELBA MILLER MD Jan 29, 2020 15:47
--- NOTE | 2020-01-29 19:14 | IPNPDOC ---
Text Note Date of Service The patient was seen on 01/29/20. NOTE Subjective: Complains of right sided chest pain , Denies any SOB. Patient went down to IR for new Pig tail cath placement in the loculated right hydropneumothorax. The old pig tail was removed and new one placed. Physical exam: Vitals: as below General: Sitting in bed, Speaking in full sentences, AAOx3 HEENT: NC, AT, PERRLA CVS: tachycardic, regular rhythm +S1S2, + Systolic murmur Lungs: Diminished lung sounds are right lung field; no appreciable wheezing, rhonchi or crackles; dullness on percussion of right lung field Abdomen: Soft, Non-distended, Non-tender Extremities: 1+ pitting edema bilaterally, No calf tenderness Neuro: No focal motor or sensory deficit Skin: No visible rashes Labs and Radiology: reviewed Assessment and Plan: Patient is 69-year-old female who was recently been diagnosed with adenocarcinoma of the right lung (Stage IV) who presented to the hospital with worsening shortness of breath and right sided chest pain. In Emergency room, patient was found to have A. fib with RVR and a chest x-ray that was consistent with a right-sided effusion with vascular congestion. CT chest showed Right-sided hydropneumothorax not significantly changed when compared with plain film performed 01/11/2020. Complete atelectasis and consolidation of the right lower lobe with occlusion of the right lower lobe bronchus. The consolidation and atelectasis has progressed since the previous CT scan dated 12/05/2019. Progressive pulmonary interstitial thickening and scattered ground-glass and crazy paving opacities suggest interstitial pneumon itis. Progressive pleural thickening at the right lung base may reflect infection. There is no nodularity which might be expected with a pleural neoplasm. Persistent Right sided Loculated hydropneumothorax unchanged from 01/10 CT chest. had thoracocentesis on 01/04. s/p pig tail placement by Dr Samuel on 01/26 Placement of new pig tail by IR on 01/29 20 and removal of old one. Pleural fluid cultures are pending. Cytology pending. Post obstructive pneumonia will continue Meropenem MRSA pcr negative Right chest pain due to cancer referred to Dr Peña for possible palliative RT for pain control A. fib with RVR Now in sinus rhythm. Will c/w Digoxin CHADSVAsc 4 will need terminal make up operator oral anticoagulation. Recently diagnosed Stage 4 Adenocarcinoma of the right lung PET Scan 01/16: extensive hypermetabolic activity seen scattered throughout the pleural reflections of the right lung. The right hilar mass seen on the CT scan is markedly abnormally hypermetabolic with SUV values as high as 9.17. The abnormal hypermetabolic activity seen scattered throughout the right lung pleura is not as hypermetabolic as the aforementioned hilar mass with SUV values up to 8.72. There is a right pleural effusion with multiple right lower lung field air-fluid levels. Patient is in the process to begin Keytruda therapy / palliative radiation; however, has not yet started H/O Post- cardiomyopathy BNP elevated; possibly 2/2 a. fib with RVR Imaging consistent with vascular congestion Furosemide 40 IV BID with hold parameters HTN Patient takes metoprolol succinate 25 QHS; DLP Not on statin NIDDM2 Will stop Glipizide / Metformin ISS COPD / Childhood asthma No evidence of exacerbation Inhaled therapy as ordered TRINY Not compliant with CPAP Neuropathy / Essential tremor Gabapentin Mood disorder Venlafaxine DVT prophylaxis TEDs/Sequentials / sq heparin. VS,Fishbone, I+O VS, Fishbone, I+O Laboratory Tests 01/29/20 04:20 Vital Signs Date Time Temp Pulse Resp B/P (MAP) Pulse Ox O2 Delivery O2 Flow Rate FiO2 01/29/20 12:20 88 18 97 Nasal Cannula 2 01/29/20 10:50 98.0 01/29/20 08:00 148/68 (94) I&O- Last 24 Hours up to 6 AM 01/29/20 06:00 Intake Total 1960 ml Output Total 1510 ml Balance 450 ml COSME MORRIS MD Jan 29, 2020 13:05
[2020-01-29] MEDS: MAGNESIUM OXIDE 400 MG TAB (MAG-OX) PO SCH (20:23)
[2020-01-30] VITALS (8 sets, daily range): BP systolic 117–156; BP diastolic 56–67
[2020-01-30] MEDS: MEROPENEM INJ 1 GM in IV 1 EA IV SCH ×3 (00:20→16:26)
[2020-01-30] MEDS: KETOROLAC 30 MG/ML 1ML VIAL IV SCH ×4 (01:58→20:37)
[2020-01-30 05:07] LABS: BASO # 0.1 10^3/uL (0.0-0.2); BASO % 0.4 % (0.0-1.0); EOS # 2.2 10^3/uL (0.0-0.5); EOS % 10.2 % (0.0-3.0); HEMOGLOBIN 10.3 g/dl (12.0-15.5); LYMPH # 2.3 10^3/uL (1.5-5.0); LYMPH % 10.6 % (24.0-44.0); MEAN CORPUSCULAR HEMOGLOBIN 27.5 pg (27.0-33.0); MEAN CORPUSCULAR HGB CONC 31.2 g/dl (32.0-36.5); MONO # 1.6 10^3/uL (0.0-0.8); MONO % 7.2 % (0.0-5.0); NEUTROPHILS # 15.3 10^3/uL (1.5-8.5); NEUTROPHILS % 70.6 % (36.0-66.0); PLATELET COUNT, AUTOMATED 413 10^3/uL (150-450); RED BLOOD COUNT 3.75 10^6/uL (4.00-5.40); WHITE BLOOD COUNT 21.7 10^3/uL (4.0-10.0)
[2020-01-30 05:43] LABS: BLOOD UREA NITROGEN 12 MG/DL (7-18); CALCIUM LEVEL 8.9 MG/DL (8.8-10.2); CARBON DIOXIDE LEVEL 32 MEQ/L (21-32); CHLORIDE LEVEL 102 MEQ/L (98-107); CREATININE FOR GFR 0.48 MG/DL (0.55-1.30); GLOMERULAR FILTRATION RATE > 60.0 (>39); GLUCOSE, FASTING 119 MG/DL (70-100); MAGNESIUM LEVEL 2.2 MG/DL (1.8-2.4); POTASSIUM SERUM 4.2 MEQ/L (3.5-5.1); SODIUM LEVEL 139 MEQ/L (136-145)
[2020-01-30] MEDS: ADVAIR HFA 115/21MCG INHALER INH SCH ×2 (07:09→19:44)
[2020-01-30] MEDS: LEVALBUTEROL 1.25 MG/0.5 ML CONCENTRATE NEB INH SCH ×4 (07:09→19:43)
[2020-01-30] MEDS: HumaLOG INSULIN (NovoLOG) PER UNIT SC SCH ×4 (07:30→20:51)
--- NOTE | 2020-01-30 08:30 | IPNPDOC ---
Date Seen The patient was seen on 01/30/20. Progress Note Subjective: denies pleuritic cp. had cp two nights ago, none since. no fever or chills. feels comfortable sitting on bedside eating breakfast. no cough. no palpitations, lightheadedness. no issues pr RN overnight. Objective: Vitals: as below General: no distress or use of acc resp mm HEENT: NC, AT, PERRLA CVS: tachycardic, regular rhythm +S1S2= Lungs: Diminished pigtail cath Abdomen: Soft, +BS x 4 quadrants. 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 CT chest showed Right-sided hydropneumothorax not significantly changed when compared with plain film performed 01/11/2020. Complete atelectasis and Recurrent Right sided Loculated hydropneumothorax thoracocentesis on 01/04. s/p pig tail placement by Dr Samuel on 01/26 Placement of new pig tail by IR on 01/29 20 and discontinued previous one Post obstructive pneumonia Right chest pain A. fib with RVR, resolved Recently diagnosed Stage 4 Adenocarcinoma of the right lung H/O Post- cardiomyopathy HTN DLP NIDDM2 COPD / Childhood asthma TRINY Neuropathy / Essential tremor Mood disorder PLAN: Keytruda and palliative radiation planned for the future. tolerating bid lasix, fluid restriction. continue merem x 7days total. thoracic sx managing pigtail cath. transfer to [facility] tele. VS, I&O, 24H, Damienbonjulio Vital Signs/I&O Vital Signs Date Time Temp Pulse Resp B/P (MAP) Pulse Ox O2 Delivery O2 Flow Rate FiO2 01/30/20 04:00 98.1 88 16 156/64 (94) 92 Room Air 01/29/20 12:20 2 I&O- Last 24 Hours up to 6 AM 01/30/20 06:00 Intake Total 770 ml Output Total 1100 ml Balance -330 ml Laboratory Data 24H LABS Laboratory Tests 2 01/29/20 11:50: Body Fluid pH 7.506, Body Fluid pH Source PLEURAL, Body Fluid WBC (Auto) 2452H, Body Fluid RBC (Auto) 59, Body Fluid Mononuclear Cells % Auto 67.9H, Fluid Polymorphonuclear Cell % Auto 32.1H, Body Fluid Glucose Source PLEURAL, Body F luid Glucose 55, Body Fluid Protein Source PLEURAL, Body Fluid Total Protein 3.0, Body Fluid Albumin Source PLEURAL, Body Fluid Albumin 0.9, Body Fluid LDH Source PLEURAL, Body Fluid Lactate Dehydrogenase 288, Body Fluid Amylase Source PLEURAL, Body Fluid Amylase 21, Body Fluid Cholesterol < 50, Body Fluid Cholesterol Source PLEURAL, Body Fluid Triglyceride Source PLEURAL, Body Fluid Triglycerides 29, Pleural Fluid Source PLEURAL, Pleural Fluid Color RED, Pleural Fluid Appearance CLOUDY 01/29/20 12:47: Bedside Glucose (Misc Panel) 94 01/29/20 16:56: Bedside Glucose (Misc Panel) 125H 01/29/20 19:37: Bedside Glucose (Misc Panel) 124H 01/30/20 04:44: Immature Granulocyte % (Auto) 1.0, Neutrophils (%) (Auto) 70.6H, Lymphocytes (%) (Auto) 10.6L, Monocytes (%) (Auto) 7.2H, Eosinophils (%) (Auto) 10.2H, Basophils (%) (Auto) 0.4, Neutrophils # (Auto) 15.3H, Lymphocytes # (Auto) 2.3, Monocytes # (Auto) 1.6H, Eosinophils # (Auto) 2.2H, Basophils # (Auto) 0.1, Nucleated Red Blood Cells % (auto) 0.0, Anion Gap 5L, Glomerular Filtration Rate > 60.0, Calcium Level 8.9, Magnesium Level 2.2 CBC/BMP Laboratory Tests 01/30/20 04:44 Microbiology Microbiology 01/29/20 Acid Fast Stain, Received Pending 01/29/20 Mycobacterial Culture, Received Pending 01/29/20 Fungal Smear, Received Pending 01/29/20 Fungal Culture, Received Pending 01/29/20 Gram Stain - Final, Resulted 01/29/20 Anaerobic Culture, Resulted Pending 01/29/20 Body Fluid Culture, Received Pending 01/27/20 Urine Culture - Final, Complete 01/27/20 Acid Fast Stain, Received Pending 01/27/20 Mycobacterial Culture, Received Pending 01/27/20 Fungal Smear, Received Pending 12/5/20 Fungal Culture, Received Pending 01/27/20 Gram Stain - Final, Complete 01/27/20 Anaerobic Culture - Final, Complete 01/27/20 Body Fluid Culture - Final, Complete 01/27/20 Blood Culture - Preliminary, Resulted No Growth after 48 hours. All Specime... 01/27/20 Blood Culture - Preliminary, Resulted No Growth after 48 hours. All Specime... 01/27/20 Respiratory Virus Panel (PCR) (MELISSA) - Final, Complete ARACELI CHEN MD Jan 30, 2020 08:09
[2020-01-30] MEDS: MOM 30ML SUSPENSION UDC PO SCH (09:00)
[2020-01-30] MEDS: NYSTATIN 500,000 U/5 ML SUSP UDC SS SCH ×4 (09:00→20:36)
[2020-01-30] MEDS: FUROSEMIDE 40MG/4ML VIAL (J1940) IV SCH ×2 (09:10→17:19)
[2020-01-30] MEDS: HEPARIN SOD (PORCINE) 5000UNITS/ML 1ML VIAL/SYRINGE SC SCH ×2 (09:11→20:37)
[2020-01-30] MEDS: DOCUSATE SODIUM 100MG CAPSULE PO SCH ×2 (09:11→20:38)
[2020-01-30] MEDS: ASPIRIN 81 MG ENTERIC TAB PO SCH (09:11)
[2020-01-30] MEDS: PANTOPRAZOLE 40MG TAB (PROTONIX) PO SCH (09:11)
[2020-01-30] MEDS: VITAMIN D 1,000 INTERNATIONAL UNITS TABLET PO SCH (09:12)
[2020-01-30] MEDS: GABAPENTIN 100 MG CAP PO SCH ×2 (09:12→20:37)
[2020-01-30] MEDS: VENLAFAXINE **XR** 75MG CAPSULE PO SCH (09:12)
[2020-01-30] MEDS: glipiZIDE XL 5 MG TABCR PO SCH (09:12)
--- NOTE | 2020-01-30 09:44 | REP ---
INDICATION: pleural effusion. COMPARISON: 01/29/2020 PA and lateral chest.. TECHNIQUE: PA and lateral chest FINDINGS: There is a right pleural pigtail drainage catheter, unchanged. The volume of air in the right hydropneumothorax has decreased. Volume of fluid appears not significantly changed. The right lower lobe remains opacified, unchanged. This could represent atelectasis, infiltrate, tumor or combination. The right hilar fullness is unchanged. Left lung is clear. IMPRESSION: The volume of air in the right hydropneumothorax has decreased. There is no other significant interval change. <Electronically signed by Sharad Mirza > 01/30/20 0926
--- NOTE | 2020-01-30 13:42 | RADONC.CN ---
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 She has been inpatient with dyspnea and recurrent pleural effusion, and is s/p pleurex exchange. She is to begin keytruda in the upcoming week with Dr. Carlisle. She is seen for consideration of palliative RT for her large and symptomatic thoracic disease burden. Diagnosis/Treatment History Oncologic History October 2019 developed wheezing and increased SOB 12/05/19 CT chest showing 2.5 cm right hilar mass with mediastinal adenopathy 12/27/19 EBUS with NSCLC PDL1 80% 01/05/20 Thoracentesis with malignant cells 01/12/20 MRI brain negative 01/15/20 PET-CT with innumerable pleural metastases. No disease outside of the chest 01/26/20 Admission for increased SOB and reaccumulation of effusion Interval History Seen at bedside feeling well today s/p pleurex exchange yesterday. The tube is now draining and her breathing is improved. She has significant right sided chest pain, worse with deep breathing. She takes norco with good effect. She is eager to start treatment. She is very functional at home and attends to all ADLs. Past Medical History: Childhood bronchial asthma Depression Essential tremor Hyperlipidemia Hypertension Obstructive sleep apnea cardiomyopathy Past Surgical History: Cataract extraction with intraocular lens bilateral implant Right knee arthroplasty Family History: Lung cancer- father, brother Social History: 50+ pack year former smoker Non-drinker Allergies / Meds Allergies: Coded Allergies: Penicillins (Verified Allergy, Intermediate, HIVES, 12/26/19) aspirin (Verified Allergy, Intermediate, HIVES WITH NORMAL DOSE FOR SEVERAL DAYS, 12/26/19) nickel (Verified Allergy, Intermediate, rash, swelling, 12/26/19) Home Meds Reported Medications Albuterol Sulfate (Proair Respiclick) 90 Mcg Aer.pow.ba, 2 PUFF INH Q4H PRN for SHORTNESS OF BREATH 01/27/20 Ipratropium/Albuterol Sulfate (Combivent Respimat 20-100 Mcg) 4 Gm Mist.inhal, 2 PUFF INH QID PRN for SHORTNESS OF BREATH, INHALER 01/27/20 Aspirin (Aspirin EC) 81 Mg Tablet.dr, 81 MG PO DAILY 01/27/20 Gabapentin (Gabapentin) 100 Mg Capsule, 200 MG PO BID, CAP 01/27/20 Calcium Carbonate/Vitamin D3 (Calcium 600+D Softgel) 1 Each Capsule, 1 CAP PO BID, CAP 01/27/20 Cholecalciferol (Vitamin D3) (Vitamin D3) 1,000 Unit Tablet, 2000 UNITS PO DAILY, TAB 01/27/20 Glipizide (Glipizide ER) 5 Mg Tab.er.24, 5 MG PO DAILY, TAB 01/27/20 Metoprolol Succinate (Metoprolol Succinate) 25 Mg Tab.er.24h, 25 MG PO QHS 01/27/20 Furosemide (Furosemide) 20 Mg Tablet, 20 MG PO DAILY 01/27/20 Hydrocodone/Acetaminophen (Hydrocodone-Acetamin 5-325 mg) 1 Each Tablet, 1 TAB PO Q4H PRN for PAIN 01/17/20 Fluticasone/Vilanterol (Breo Ellipta 100-25 Mcg INH) 1 Each Blst.w.dev, 1 PUFF INH DAILY, INHALER 12/26/19 Dulaglutide (Trulicity) 0.75 Mg/0.5 Ml Pen.injctr, 0.75 MG SC QWEEK Sundays12/26/19 Magnesium Oxide (Magnesium) 400 Mg Capsule, 400 MG PO QHS 12/26/19 Glucosamine HCl (Vegetarian Glucosamine) 750 Mg Tab, 750 MG PO BID, TAB 05/18/18 Fluticasone Propionate (Fluticasone Propionate) 50 Mcg/Act Spr, 1 SPRAY NARES QHS PRN for CONGESTION 05/18/18 Meclizine HCl (Meclizine HCl) 25 Mg Tab, 25 MG PO PRN PRN for DIZZINESS 05/18/18 Venlafaxine HCl (Venlafaxine HCl ER) 150 Mg Cap, 150 MG PO DAILY 05/18/18 Metformin HCl (Metformin HCl) 1,000 Mg Tab, 1000 MG PO BID 05/18/18 Discontinued Reported Medications Oxycodone HCl/Acetaminophen (Oxycodone-Acetaminophen 5-325) 1 Each Tablet, 1 TAB PO BIDP PRN for pain MDD 2 Tablet(s) for 5 Days, #10 TAB 01/05/20 Gabapentin (Gabapentin) 400 Mg Capsule, 200 MG PO BID, CAP 12/26/19 Cholecalciferol (Vitamin D3) (Vitamin D3) 2,000 Unit Cap, 2000 UNIT PO DAILY, CAP 05/18/18 Triamcinolone Acet (Triamcinolone Acetonide 0.1% Crm) 1 Dose/80 Gm Cream, BID 05/18/18 Lisinopril (Lisinopril) 5 Mg Tab, 2.5 MG PO DAILY 05/18/18 Atorvastatin Calcium (Atorvastatin Calcium) 40 Mg Tab, 40 MG PO DAILY 05/18/18 Glipizide (Glipizide ER) 2.5 Mg Tab, 5 MG PO DAILY 05/18/18 Review of Systems Constitutional: Reports: Weight Loss; Denies: Chills, Fever, Night Sweats Eyes: Denies: Pain, Vision change HEENT: Denies: Head Aches, Dysphagia, Sore Throat Skin: Denies: Rash, Lesions, Bruising Pulmonary: Reports: Dyspnea, Cough, Pleuritic Chest Pain Cardiovascular: Reports: Orthopnea; Denies: Chest Pain, Palpitations, Edema Gastrointestinal: Denies: Nausea, Vomiting, Abdominal Pain, Diarrhea Genitourinary: Denies: Dysuria, Frequency, Incontinence Hematologic: Denies: Bruising, Petecchia, Enlarged Lymph Nodes Musculoskeletal: Denies: Neck pain, Back pain Neurological: Denies: Weakness, Numbness, Incoordination Psych: Reports: Mood Normal; Denies: Memory Issues, Thoughts of Self Harm Vital Signs Vital Signs Date Time Temp Pulse Resp B/P (MAP) Pulse Ox O2 Delivery O2 Flow Rate FiO2 01/30/20 08:00 98.5 86 20 145/67 (93) 95 Room Air 01/29/20 12:20 2 General Exam: Positive: Alert, Cooperative, No Acute Distress Eye Exam: Positive: PERRLA, EOMI ENT EXAM: Positive: Mucous membr. moist/pink, Pharynx Normal Neck Exam: Negative: Thyromegaly, Lymphadenopathy Chest Exam: Positive: Diminished (Right lung manley greatly diminished. Left lung manley clear without wheezes or rhonchi) Heart Exam: Positive: Rate Normal, Regular Rhythm Abdomen Exam: Positive: Soft; Negative: Tenderness, Mass Extremity Exam: Positive: Edema (1+ pretibial); Negative: Tenderness Skin Exam: Negative: Nl turgor and temperature, Rash, Breakdown, Lesion, Pruritus, Other skin issue Neuro Exam: Positive: Normal Gait, Normal Speech, Cranial Nerves 3-12 NL Psych Exam: Positive: Mental status NL, Mood NL, Memory Intact Diagnostic and Laboratory Diagnostic Review Radiologic images, relevant labs and pathology reports were personally reviewed and discussed with Rito Dalia. Laboratory Tests 01/29/20 04:20 01/30/20 04:44 Laboratory Tests 01/28/20 16:45: Bedside Glucose (Misc Panel) 141H 01/28/20 19:59: Bedside Glucose (Misc Panel) 172H 01/29/20 04:20: White Blood Count 20.8H, Red Blood Count 3.76L, Hemoglobin 10.2L, Hematocrit 32.5L, Mean Corpuscular Volume 86.4, Mean Corpuscular Hemoglobin 27.1, Mean Corpuscular Hemoglobin Concent 31.4L, Red Cell Distribution Width 15.2H, Platelet Count 435, Immature Granulocyte % (Auto) 0.7, Neutrophils (%) (Auto) 74.0H, Lymphocytes (%) (Auto) 9.5L, Monocytes (%) (Auto) 5.9H, Eosinophils (%) (Auto) 9.7H, Basophils (%) (Auto) 0.2, Neutrophils # (Auto) 15.4H, Lymphocytes # (Auto) 2.0, Monocytes # (Auto) 1.2H, Eosinophils # (Auto) 2.0H, Basophils # (Auto) 0.1, Nucleated Red Blood Cells % (auto) 0.0, Sodium Level 139, Potassium Level 3.4L, Chloride Level 101, Carbon Dioxide Level 32, Anion Gap 6L, Blood Urea Nitrogen 11, Creatinine 0.49L, Glomerular Filtration Rate > 60.0, Fasting Glucose 121H, Calcium Level 8.6L, Magnesium Level 1.8, Lactate Dehydrogenase 160 01/29/20 11:50: Body Fluid pH 7.506, Body Fluid pH Source PLEURAL, Body Fluid WBC (Auto) 2452H, Body Fluid RBC (Auto) 59, Body Fluid Mononuclear Cells % Auto 67.9H, Fluid Oracio ymorphonuclear Cell % Auto 32.1H, Body Fluid Glucose Source PLEURAL, Body Fluid Glucose 55, Body Fluid Protein Source PLEURAL, Body Fluid Total Protein 3.0, Body Fluid Albumin Source PLEURAL, Body Fluid Albumin 0.9, Body Fluid LDH Source PLEURAL, Body Fluid Lactate Dehydrogenase 288, Body Fluid Amylase Source PLEURAL, Body Fluid Amylase 21, Body Fluid Cholesterol < 50, Body Fluid Cholesterol Source PLEURAL, Body Fluid Triglyceride Source PLEURAL, Body Fluid Triglycerides 29, Pleural Fluid Source PLEURAL, Pleural Fluid Color RED, Pleural Fluid Appearance CLOUDY 01/29/20 12:47: Bedside Glucose (Misc Panel) 94 01/29/20 16:56: Bedside Glucose (Misc Panel) 125H 01/29/20 19:37: Bedside Glucose (Misc Panel) 124H 01/30/20 04:44: White Blood Count 21.7H, Red Blood Count 3.75L, Hemoglobin 10.3L, Hematocrit 33.0L, Mean Corpuscular Volume 88.0, Mean Corpuscular Hemoglobin 27.5, Mean Corpuscular Hemoglobin Concent 31.2L, Red Cell Distribution Width 15.2H, Platelet Count 413, Immature Granulocyte % (Auto) 1.0, Neutrophils (%) (Auto) 70.6H, Lymphocytes (%) (Auto) 10.6L, Monocytes (%) (Auto) 7.2H, Eosinophils (%) (Auto) 10.2H, Basophils (%) (Auto) 0.4, Neutrophils # (Auto) 15.3H, Lymphocytes # (Auto) 2.3, Monocytes # (Auto) 1.6H, Eosinophils # (Auto) 2.2H, Basophils # (Auto) 0.1, Nucleated Red Blood Cells % (auto) 0.0, Sodium Level 139, Potassium Level 4.2#, Chloride Level 102, Carbon Dioxide Level 32, Anion Gap 5L, Blood Urea Nitrogen 12, Creatinine 0.48L, Glomerular Filtration Rate > 60.0, Fasting Glucose 119H, Calcium Level 8.9, Magnesium Level 2.2 01/30/20 12:06: Bedside Glucose (Misc Panel) 113H Assessment and Plan Impression Ms. 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 She has been inpatient with dyspnea and recurrent pleural effusion, and is s/p pleurex exchange. She is to begin keytruda in the upcoming week with Dr. Carlisle. She is seen for consideration of palliative RT for her large and symptomatic thoracic disease burden. Stage Right lower lobe NSCLC [id number] stage KELSI. Performance Status ECOG 1 Plan We had an extensive discussion with Ms. Gómez regarding the diagnosis at hand and available therapeutic options. Her condition is much improved with revision of her chest tube and drainage of the malignant effusion there. Her overall burden of disease is limited to the chest, I discussed that while incurable, her condition and prognosis is generally more favorable than if she had extrathoracic disease, and especially because her high PDL1 status means immunotherapy is more likely to be effective. I recommend that we pursue palliative RT to the right chest in effort to relieve the obstruction of her RML and RLL bronchi from tumor, because she may do very well with systemic therapy and her PS is good I think it is reasonable to be aggressive with chest RT, thus I will give 50 Gy in 20 fractions as a split- course with a 2 week break after 25 Gy, the aim is facilitate systemic therapy without side effect overlap, and allow for normal tissue healing and tumor response in between phases. This regimen has good palliative outcomes (Nicole et al JTO 2010). I will use a 3D planning approach with daily CBCT for localization. We discussed the logistics of receiving radiation therapy in detail including the need for a 1-time planning session. This can occur either 01/31/20 or 02/01/20 as an inpatient, or as an outpatient if she is otherwise ready for discharge. We reviewed the side effects of treatment including fatigue, esophagitis and fibrosis. After discussing the risks, benefits and alternatives to radiation therapy, Ms. Gómez was amenable to pursuing radiotherapy. All questions were answered to the patient's satisfaction. We instructed the patient that if there were any questions,concerns or changes in clinical status in the interim to contact us. Recommendations Split-course palliative RT 50 Gy in 20 fractions as described above Simulation 01/31/20 or 02/01/20 Can be done on inpatient or outpatient basis ELBA MILLER MD Jan 30, 2020 13:42
[2020-01-30] MEDS ORDERED: SLF 3 ML SYR IV PRN (14:00)
[2020-01-30] MEDS: SLF 3 ML SYR IV SCH ×2 (14:29→21:00)
[2020-01-30] MEDS: METOPROLOL SUCC *XL* 25MG TAB (TopROL *XL*) PO SCH (20:38)
[2020-01-30] MEDS: MAGNESIUM OXIDE 400 MG TAB (MAG-OX) PO SCH (20:38)
[2020-01-31] VITALS: BP 132/63
[2020-01-31] MEDS: MEROPENEM INJ 1 GM in IV 1 EA IV SCH ×2 (00:12→08:38)
[2020-01-31 04:00] VITALS: BP 140/60
[2020-01-31] MEDS: KETOROLAC 30 MG/ML 1ML VIAL IV SCH ×3 (04:07→14:36)
[2020-01-31 05:14] LABS: BASO # 0.1 10^3/uL (0.0-0.2); BASO % 0.3 % (0.0-1.0); EOS # 2.1 10^3/uL (0.0-0.5); EOS % 10.2 % (0.0-3.0); HEMATOCRIT 36.1 % (36.0-47.0); HEMOGLOBIN 10.5 g/dl (12.0-15.5); LYMPH % 9.4 % (24.0-44.0); MEAN CORPUSCULAR HEMOGLOBIN 25.9 pg (27.0-33.0); MEAN CORPUSCULAR HGB CONC 29.1 g/dl (32.0-36.5); MEAN CORPUSCULAR VOLUME 89.1 fl (80.0-96.0); MONO # 1.5 10^3/uL (0.0-0.8); NEUTROPHILS % 72.1 % (36.0-66.0); PLATELET COUNT, AUTOMATED 455 10^3/uL (150-450); RED BLOOD COUNT 4.05 10^6/uL (4.00-5.40); WHITE BLOOD COUNT 20.9 10^3/uL (4.0-10.0)
[2020-01-31 05:33] LABS: BLOOD UREA NITROGEN 12 MG/DL (7-18); CALCIUM LEVEL 8.7 MG/DL (8.8-10.2); CARBON DIOXIDE LEVEL 32 MEQ/L (21-32); CHLORIDE LEVEL 101 MEQ/L (98-107); CREATININE FOR GFR 0.51 MG/DL (0.55-1.30); GLOMERULAR FILTRATION RATE > 60.0 (>39); GLUCOSE, FASTING 103 MG/DL (70-100); POTASSIUM SERUM 4.6 MEQ/L (3.5-5.1); SODIUM LEVEL 137 MEQ/L (136-145)
[2020-01-31] MEDS: SLF 3 ML SYR IV SCH ×2 (06:22→14:20)
--- NOTE | 2020-01-31 07:13 | IPN ---
PROGRESS NOTE DATE: 01/29/2020 SUBJECTIVE: Ms. Gómez has not drained anything from her pigtail catheter. She underwent a TP pleurolysis after checking the position of the catheter yesterday. I will therefore have her go down to x-ray today to place another pigtail catheter at a level above. Her vital signs show a T-max of 98.8 with a heart rate that ranges between 87 and 119, respiratory rate of 16 to 22 without use of accessory muscles, 89 to 97% saturated on 2 liters nasal cannula. Blood pressure ranging between 149/70 to 116/56. Intake and output over the past 24 hours recorded as 2270 in and 1290 out for a positivity of 90 ml. She has put out 40 ml from the chest catheter and there is no air leak. Weight today 63.2 kg today compared to 65.1 kg yesterday. PHYSICAL EXAMINATION: On physical examination, she has markedly decreased breath sounds on the right side with a dull percussion note at the base and mid hemithorax on the right side. The left lung shows some inspiratory crackles. I hear no wheezing. Percussion note is full to the diaphragm on the left. Cardiac exam shows the 2-3 systolic ejection murmur at the right upper sternal border and also at the left lower sternal border. It radiates to the carotids. I cannot feel her point of maximum impulse (PMI). S1 and S2 are normal. Abdomen is soft and nontender. Bowel sounds are positive. There is no hepatomegaly; no CVA tenderness. Extremities show trace pretibial edema; no calf tenderness. No differential swelling of the upper extremities. Skin is warm, dry and perfused without cyanosis or mottling including that of the nailbeds and knees. Neck is supple. There is no jugular venous distension. No subcutaneous emphysema. Trachea is midline. Mouth shows the mucous membranes to be pink and moist but there is thrush. Eyes show her pupils to be equal and reactive. Extraocular muscles are intact. Sclerae are nonicteric. Neurologic shows II-XII intact. Normal gross motor, gross sensation intact. Gait is not tested. Psychiatric shows her to be awake, alert and oriented times three with appropriate mood and affect, and conversational. LABORATORY DATA: Her white count today is 20.8 with a hemoglobin and hematocrit of 10.2 and 32.5 respectively. This is down from 11.1 and 36.4 yesterday. Platelet count is 435,000 and differential showed 74% neutrophils, 9% lymphocytes and 5% monocytes. There are no mature forms of toxic granulations. Chemistries today showed a marginally low potassium of 3.4 with a BUN and creatinine of 11 and 0.49, glucose of 121, calcium of 8.6. Magnesium is 1.8. Her chest x-ray today shows no change in the right lower lobe opacity. The lateral chest x-ray shows the pigtail catheter now to be out. IMPRESSION: 1. Stage IV adenocarcinoma. 2. Probable malignant effusion with pleural infiltration of tumor seen on PET scanning. 3. Hypertension. 4. Childhood asthma. 5. Obstructive sleep apnea. 6. Essential tremor. PLAN AND DISCUSSION: As noted above, I will have x-ray place catheter at one rib higher. Hopefully, we will be able to drain her, if not I will again attempt TP pleurolysis. I will send the specimens for all requisite studies to include cytologies, hematologies, bacteriologies and chemistries.
--- NOTE | 2020-01-31 07:27 | IPN ---
PROGRESS NOTE DATE: 01/30/2020 SUBJECTIVE: Ms. Gómez is feeling a whole lot better today. She is in very good spirits. She is breathing well. She states that it is the best she has felt since coming to the hospital. Her tube has drained 300 ml since it was replaced. Her vital signs show a T-max of 98.5 with a heart range that ranges between 88 and 84 and is sinus rhythm, respiratory rate of 16 to 20 without use of accessory muscles, she was 92 to 97% saturated now on room air. Blood pressures are ranging between 117/56 to 156/64. Input and output over the past 24 hours has been recorded as 1010 in and 1500 out for a negativity of 490 ml. She put out 200 ml from the chest tube yesterday and 130 ml today. Her weight today is 60.5 kilos, it was 63.2 kilos yesterday. PHYSICAL EXAMINATION: She still has markedly decreased breath sounds on the right side in the lower half of the hemithorax. Percussion note is dull at the lower half of the hemithorax on the right. Left side shows normal vesicular sounds without wheezes, rhonchi or rales. Percussion note is full to the diaphragm on the left. Cardiac exam shows the same 2-3 systolic ejection murmur at the right upper sternal border and left lower sternal border. I cannot feel her point of maximum impulse (PMI). S1 and S2 are normal. Abdomen is soft and nontender. Bowel sounds are positive. There is no hepatomegaly; no CVA tenderness. Extremities show no pretibial edema. No calf tenderness. No differential swelling of the upper extremities. Skin is warm, dry and perfused without cyanosis or mottling including that of the nailbeds and knees. Neck is supple. There is no jugular venous distention. No subcutaneous emphysema. Trachea is midline. Mouth shows the mucous membranes to be pink and moist. Her thrush is resolving. Eyes show her pupils to be equal and reactive. Extraocular muscles are intact. Sclerae are nonicteric. Neurologic shows II-XII intact. Normal gross motor, gross sensation intact. Gait is not tested. Psychiatric shows her to be awake, alert and oriented times three with appropriate mood and affect, and conversational. LABORATORY DATA: Her white count today is 21.7 which is essentially unchanged over the last three days. Hemoglobin and hematocrit is 10.3 and 33.0, unchanged from yesterday with a platelet count of 413,000. Differential is 70% neutrophils, 10% leukocytes, 7 monocytes and no mature forms of toxic granulations. Her electrolytes are normal with a BUN and creatinine of 12 and 0.48. Her calcium is 8.9 and magnesium is 2.2. Her chest x-ray shows her lung to be entrapped with an air fluid level on the left side. There was no fluid yesterday after the initial drainage, however she still has some at the lower portion of the chest now forming an air fluid level. I feel that the lung is entrapped and is not going to be coming back up. The right lower lobe is completely consolidated and solid. IMPRESSION: 1. Adenocarcinoma Stage IV right lung to pleura. 2. Pleural effusion status post pigtail catheter placement and TP pleurolysis. 3. Hypertension. 4. Diabetes. 5. Childhood asthma. 6. Obstructive sleep apnea. 7. Essential tremor. PLAN AND DISCUSSION: I will continue her chest tube to wall suction today as she has put out 130 ml in the morning. Her pathology has come back without malignancy in the pleural fluid and I suspect this is secondary to the pleural implants not shedding malignant cells. It should also be noted that fluid analysis from yesterday's pleurocentesis showed a pH of 7.5 with a glucose of 55 and an LDH of 288 with a serum LDH of 160. She showed 2452 white cells, the majority of which were being called mononuclear and lymphocytes. This therefore looks to be an exudative lymphocytic effusion. I do not think this is going to represent an empyema or parapneumonic effusion. Microbiology shows no organisms of either of the pleural samples with many white cells and many red cells. Dr. Peña has seen here and according to the patient she is going to be taken down today for simulation with commencement of radiation on . [facility]
[2020-01-31 07:55] VITALS: BP 136/60
[2020-01-31] MEDS: ADVAIR HFA 115/21MCG INHALER INH SCH (08:00)
[2020-01-31] MEDS: LEVALBUTEROL 1.25 MG/0.5 ML CONCENTRATE NEB INH SCH ×2 (08:00→11:52)
--- NOTE | 2020-01-31 08:23 | REP ---
INDICATION: pleural effusion. COMPARISON: PA and lateral plain film study dated 01/30/2020. TECHNIQUE: Upright PA and lateral chest. FINDINGS: The right pleural drainage catheter and right hydropneumothorax are unchanged. The right hilar fullness is unchanged. The opacification of the right lower lobe is unchanged. Left lung remains clear. IMPRESSION: There is no significant interval change. <Electronically signed by Sharad Mirza > 01/31/20 0819
[2020-01-31] MEDS: NYSTATIN 500,000 U/5 ML SUSP UDC SS SCH ×3 (08:38→16:09)
[2020-01-31] MEDS: HEPARIN SOD (PORCINE) 5000UNITS/ML 1ML VIAL/SYRINGE SC SCH (08:38)
[2020-01-31] MEDS: FUROSEMIDE 40MG/4ML VIAL (J1940) IV SCH ×2 (08:38→16:10)
[2020-01-31] MEDS: glipiZIDE XL 5 MG TABCR PO SCH (08:39)
[2020-01-31] MEDS: PANTOPRAZOLE 40MG TAB (PROTONIX) PO SCH (08:39)
[2020-01-31] MEDS: VENLAFAXINE **XR** 75MG CAPSULE PO SCH (08:39)
[2020-01-31] MEDS: VITAMIN D 1,000 INTERNATIONAL UNITS TABLET PO SCH (08:39)
[2020-01-31] MEDS: HumaLOG INSULIN (NovoLOG) PER UNIT SC SCH ×2 (08:39→13:03)
[2020-01-31] MEDS: ASPIRIN 81 MG ENTERIC TAB PO SCH (08:39)
[2020-01-31] MEDS: GABAPENTIN 100 MG CAP PO SCH (08:39)
--- NOTE | 2020-01-31 10:57 | IPNPDOC ---
Date Seen The patient was seen on 01/31/20. Progress Note Subjective: No complaints of dyspnea and exertion, chest pain, improved. No shortness of breath. Telemetry unremarkable. Pigtail catheter output reviewed. . Repeat chest x-ray : No interval change Objective: Vitals: as below General: no distress or use of acc resp mm HEENT: NC, AT, PERRLA CVS: tachycardic, regular rhythm +S1S2 Lungs: Diminished pigtail cath Abdomen: Soft, +BS x 4 quadrants. Non-distended, Non-tender Extremities: 1+b/l LE edema Labs and Radiology: reviewed 01/31/20 cxr The right pleural drainage catheter and right hydropneumothorax are unchanged. The right hilar fullness is unchanged. The opacification of the right lower lobe is unchanged. Left lung remains clear. 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 CT chest showed Right-sided hydropneumothorax not significantly changed when compared with plain film performed 01/11/2020. Complete atelectasis and Recurrent Right sided Loculated hydropneumothorax thoracocentesis on 01/04. s/p pig tail placement by Dr Samuel on 01/26 Placement of new pig tail by IR on 01/29 20 and discontinued previous one Post obstructive pneumonia Right chest pain A. fib with RVR, resolved Recently diagnosed Stage 4 Adenocarcinoma of the right lung H/O Post- cardiomyopathy HTN DLP NIDDM2 COPD / Childhood asthma TRINY Neuropathy / Essential tremor Mood disorder PLAN: . Chest tube management per Dr. Samuel. Thoracic surgery. Patient had 235. Abnormal output yesterday. She is breathing well. Telemetry is unremarkable. Afebrile. No complaints of chills. Still on antibiotics for postobstructive p neumonia to complete a full 7 day course. Patient is medically stable for PCU. Once chest tube has been discontinued, she may be transferred to medical surgical floor. No telemetry needed. PT, OT has been consulted. Patient's activity is tolerated. Plans are for acute treatment and palliative radiation in the future. Radiation oncology has been consulted to discuss future management with the patient and her . Continue with current present management. VS, I&O, 24H, Fishbone Vital Signs/I&O Vital Signs Date Time Temp Pulse Resp B/P (MAP) Pulse Ox O2 Delivery O2 Flow Rate FiO2 01/31/20 04:00 97.9 90 18 140/60 (86) 91 Room Air 01/29/20 12:20 2 I&O- Last 24 Hours up to 6 AM 01/31/20 06:00 Intake Total 1340 ml Output Total 2700 ml Balance -1360 ml Laboratory Data 24H LABS Laboratory Tests 2 01/30/20 12:06: Bedside Glucose (Misc Panel) 113H 01/30/20 17:17: Bedside Glucose (Misc Panel) 111H 01/30/20 20:44: Bedside Glucose (Misc Panel) 265H 01/31/20 04:46: Immature Granulocyte % (Auto) 1.0, Neutrophils (%) (Auto) 72.1H, Lymphocytes (%) (Auto) 9.4L, Monocytes (%) (Auto) 7.0H, Eosinophils (%) (Auto) 10.2H, Basophils (%) (Auto) 0.3, Neutrophils # (Auto) 15.0H, Lymphocytes # (Auto) 2.0, Monocytes # (Auto) 1.5H, Eosinophils # (Auto) 2.1H, Basophils # (Auto) 0.1, Nucleated Red Blood Cells % (auto) 0.0, Anion Gap 4L, Glomerular Filtration Rate > 60.0, Calcium Level 8.7L, Magnesium Level 2.0 CBC/BMP Laboratory Tests 01/31/20 04:46 Microbiology Microbiology 01/29/20 Acid Fast Stain, Received Pending 01/29/20 Mycobacterial Culture, Received Pending 01/29/20 Fungal Smear, Received Pending 01/29/20 Fungal Culture, Received Pending 01/29/20 Gram Stain - Final, Complete 01/29/20 Anaerobic Culture - Final, Complete 01/29/20 Body Fluid Culture - Final, Complete 01/27/20 Urine Culture - Final, Complete 01/27/20 Acid Fast Stain, Received Pending 01/27/20 Mycobacterial Culture, Received Pending 01/27/20 Fungal Smear, Received Pending 01/27/20 Fungal Culture, Received Pending 01/27/20 Gram Stain - Final, Complete 01/27/20 Anaerobic Culture - Final, Complete 01/27/20 Body Fluid Culture - Final, Complete 01/27/20 Blood Culture - Preliminary, Resulted No Growth after 72 hours. All specime... 01/27/20 Blood Culture - Preliminary, Resulted No Growth after 72 hours. All specime... 01/27/20 Respiratory Virus Panel (PCR) ([facility]) - Final, Complete ARACELI CHEN MD Jan 31, 2020 10:57
[2020-01-31] MEDS: DOCUSATE SODIUM 100MG CAPSULE PO SCH (11:07)
[2020-01-31] MEDS: MOM 30ML SUSPENSION UDC PO SCH (11:07)
[2020-01-31 12:23] VITALS: BP 104/51
[2020-01-31 15:00] VITALS: BP 122/76
[2020-02-13] MEDS ORDERED: HYDR-4571 PO (15:01)
[2020-02-19] MEDS ORDERED: MAGICMW PO (11:12)
[2020-03-04] MEDS ORDERED: K-TA10TA2 PO (16:04)
[2020-03-04] MEDS ORDERED: MAGN400C PO (16:04)
--- NOTE | 2020-03-05 17:19 | DS.PDOC ---
Discharge Summary General Date of Admission Jan 27, 2020 at 18:53 Date of Discharge 01/31/20 Discharge Summary CONSULTANTS: Thoracic surgeon Dr. Nate Ortiz Radiation oncologist, Dr. Alcazar DISCHARGE DIAGNOSES: Recurrent Right sided Loculated hydropneumothorax thoracocentesis on 01/04. s/p pig tail placement by Dr Villavicencio on 01/26 Placement of new pig tail by IR on 01/29 20 and discontinued previous one Post obstructive pneumonia Right chest pain A. 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 ALCAZAR, DR. VILLAVICENCIO WITHIN 1 WEEK OF DISCHARGE HOSPITAL COURSE: Patient is 69-year-old female who was recently been diagnosed with adenocarcinoma of the right lung (Stage IV) who presented to the hospital with worsening shortness of breath and right sided chest pain. In Emergency room, patient was found to have A. fib with RVR and a chest x-ray that was consistent with a right-sided effusion with vascular congestion. CT chest showed Right-sided hydropneumothorax not significantly changed when compared with plain film performed 01/11/2020. Complete atelectasis and consolidation of the right lower lobe with occlusion of the right lower lobe bronchus. The consolidation and atelectasis has progressed since the previous CT scan dated 12/05/2019. Progressive pulmonary interstitial thickening and scattered ground-glass and crazy paving opacities suggest interstitial pneumonitis. Progressive pleural thickening at the right lung base may reflect infection. There is no nodularity which might be expected with a pleural neopl asm. Persistent Right sided hydropneumothorax unchanged from 01/10 CT chest. had thoracocentesis on 01/04. s/p chest tube placement by Dr Villavicencio on 01/26 possible some post obstructive pneumonia Completed Meropenem MRSA pcr negative dc'ED vancomycin. Pleural fluid cultures reviewed Right chest pain due to cancer referred to Dr Peña for possible palliative RT for pain control A. fib with RVR Now in sinus rhythm. On digoxin Digoxin CHADSVAsc 4 On oral anticoagulation. Recently diagnosed Stage 4 Adenocarcinoma of the right lung PET Scan 01/16: extensive hypermetabolic activity seen scattered throughout the pleural reflections of the right lung. The right hilar mass seen on the CT scan is markedly abnormally hypermetabolic with SUV values as high as 9.17. The abnormal hypermetabolic activity seen scattered throughout the right lung pleura is not as hypermetabolic as the aforementioned hilar mass with SUV values up to 8.72. There is a right pleural effusion with multiple right lower lung field air-fluid levels. Patient is in the process to begin Keytruda therapy / palliative radiation; however, has not yet started Post- cardiomyopathy BNP elevated; possibly 2/2 a. fib with RVR Imaging consistent with vascular congestion Status post Furosemide 40 IV BID with hold parameters Changed to by mouth Lasix HTN Continued on metoprolol succinate 25 QHS; DLP Not on statin NIDDM2 Discontinued Glipizide / Metformin ISS COPD / Childhood asthma No evidence of exacerbation Inhaled therapy as ordered TRINY Not compliant with CPAP Neuropathy / Essential tremor Gabapentin Mood disorder Venlafaxine DVT prophylaxis TEDs/Sequentials / sq heparin. DISCHARGE PHYSICAL EXAMINATION Vitals: as below General: no distress or use of acc resp mm HEENT: NC, AT, PERRLA CVS: tachycardic, regular rhythm +S1S2 Lungs: Diminished pigtail cath Abdomen: Soft, +BS x 4 quadrants. Non-distended, Non-tender Extremities: 1+b/l LE edema DISCHARGE LABORATORY DATA, IMAGING STUDIES AND MICROBIOLOGY: please see below 01/31/20 cxr The right pleural drainage catheter and right hydropneumothorax are unchanged. The right hilar fullness is unchanged. The opacification of the right lower lobe is unchanged. Left lung remains clear. TIME SPENT ON DISCHARGE: 30 minutes Vital Signs/I&Os Vital Signs Date Time Temp Pulse Resp B/P (MAP) Pulse Ox O2 Delivery O2 Flow Rate FiO2 01/31/20 15:00 98.7 85 18 122/76 (91) 92 Room Air 01/29/20 12:20 2 I&O- Last 24 Hours up to 6 AM 01/31/20 06:00 Intake Total 1340 ml Output Total 2700 ml Balance -1360 ml Laboratory Data Labs 24H Laboratory Tests 2 01/30/20 20:44: Bedside Glucose (Misc Panel) 265H 01/31/20 04:46: Immature Granulocyte % (Auto) 1.0, Neutrophils (%) (Auto) 72.1H, Lymphocytes (%) (Auto) 9.4L, Monocytes (%) (Auto) 7.0H, Eosinophils (%) (Auto) 10.2H, Basophils (%) (Auto) 0.3, Neutrophils # (Auto) 15.0H, Lymphocytes # (Auto) 2.0, Monocytes # (Auto) 1.5H, Eosinophils # (Auto) 2.1H, Basophils # (Auto) 0.1, Nucleated Red Blood Cells % (auto) 0.0, Anion Gap 4L, Glomerular Filtration Rate > 60.0, Calcium Level 8.7L, Magnesium Level 2.0 01/31/20 12:21: Bedside Glucose (Misc Panel) 114H CBC/BMP Laboratory Tests 01/31/20 04:46 FSBS Laboratory Tests Test 01/30/20 20:44 01/31/20 12:21 Range/Units Bedside Glucose (Misc Panel) 265 114 83-110 MG/DL Microbiology Microbiology 01/29/20 Acid Fast Stain, Received Pending 01/29/20 Mycobacterial Culture, Received Pending 01/29/20 Fungal Smear, Received Pending 01/29/20 Fungal Culture, Received Pending 01/29/20 Gram Stain - Final, Complete 01/29/20 Anaerobic Culture - Final, Complete 01/29/20 Body Fluid Culture - Final, Complete 01/27/20 Urine Culture - Final, Complete 01/27/20 Acid Fast Stain, Received Pending 01/27/20 Mycobacterial Culture, Received Pending 01/27/20 Fungal Smear, Received Pending 01/27/20 Fungal Culture, Received Pending 01/27/20 Gram Stain - Final, Complete 01/27/20 Anaerobic Culture - Final, Complete 01/27/20 Body Fluid Culture - Final, Complete 01/27/20 Blood Culture - Preliminary, Resulted No Growth after 72 hours. All specime... 01/27/20 Blood Culture - Preliminary, Resulted No Growth after 72 hours. All specime... 01/27/20 Respiratory Virus Panel (PCR) (MELISSA) - Final, Complete Discharge Medications Scheduled Aspirin (Aspirin EC) 81 Mg Tablet.dr, 81 MG PO DAILY, (Reported) Atorvastatin Calcium (Atorvastatin Calcium) 40 Mg Tablet, 40 MG PO DAILY, (Reported) Calcium Carbonate/Vitamin D3 (Calcium 600+D Softgel) 1 Each Capsule, 1 CAP PO BID, (Reported) Dulaglutide (Trulicity) 0.75 Mg/0.5 Ml Pen.injctr, 0.75 MG SC QWEEK, (Reported) SUNDAYS Fluticasone/Vilanterol (Breo Ellipta 100-25 Mcg INH) 1 Each Blst.w.dev, 1 PUFF INH DAILY, (Reported) Furosemide (Furosemide) 20 Mg Tablet, 20 MG PO DAILY, (Reported) Gabapentin (Gabapentin) 100 Mg Capsule, 200 MG PO BID, (Reported) Glipizide (Glipizide ER) 5 Mg Tab.er.24, 5 MG PO DAILY, (Reported) Levofloxacin (Levofloxacin) 750 Mg Tablet, 750 MG PO DAILY@06 Lisinopril (Lisinopril) 5 Mg Tablet, 5 MG PO DAILY, (Reported) Magnesium Oxide (Magnesium) 400 Mg Capsule, 1 CAP PO DAILY for constipation Metformin HCl (Metformin HCl) 1,000 Mg Tab, 1,000 MG PO BID, (Reported) Metoprolol Succinate (Metoprolol Succinate) 25 Mg Tab.er.24h, 25 MG PO QHS, (Reported) Potassium Chloride (K-Tab ER) 10 Meq Tablet.er, 10 MEQ PO DAILY Venlafaxine HCl (Venlafaxine HCl ER) 150 Mg Cap, 150 MG PO DAILY, (Reported) Scheduled PRN Albuterol Sulfate (Proair Respiclick) 90 Mcg Aer.pow.ba, 2 PUFF INH Q4H PRN for SHORTNESS OF BREATH, (Reported) Fluticasone Propionate (Fluticasone Propionate) 50 Mcg/Act Spr, 1 SPRAY NARES QHS PRN for CONGESTION, (Reported) Hydrocodone/Acetaminophen (Hydrocodone-Acetamin 5-325 mg) 1 Each Tablet, 1 TAB PO Q4H PRN for PAIN Ipratropium/Albuterol Sulfate (Combivent Respimat 20-100 Mcg) 4 Gm Mist.inhal, 2 PUFF INH QID PRN for SHORTNESS OF BREATH, (Reported) Magic Mouthwash (First-Mouthwash Blm) 1 Ea Susp, 10 ML PO QID PRN for Dysphagia (Diphenhydramine/maalox/lidocaine 1:1:1) Take with straw by mouth and swallow Allergies Coded Allergies: Penicillins (Verified Allergy, Intermediate, HIVES, 12/26/19) aspirin (Verified Allergy, Intermediate, HIVES WITH NORMAL DOSE FOR SEVERAL DAYS, 12/26/19) nickel (Verified Allergy, Intermediate, rash, swelling, 12/26/19) ARACELI CHEN MD Jan 31, 2020 17:29
== END 2020-01-31 16:25 | disposition home health service (06) | DRG 186 ==
LOC: M ED 15:58 → M ED INP 18:53 → M ICU 20:40 → M MS5PR 01-31 14:50
PROVIDERS: ADMIT Internal Medicine; ATTEND General Practice
PROC: 0W9900Z Drainage of Right Pleural Cavity with Drainage Device, Open Approach (ICD-10-PCS; principal; 2020-01-27)
PROC: 3E0L3GC Introduction of Other Therapeutic Substance into Pleural Cavity, Percutaneous Approach (ICD-10-PCS; 2020-01-28)
PROC: 0W9930Z Drainage of Right Pleural Cavity with Drainage Device, Percutaneous Approach (ICD-10-PCS; 2020-01-29)
DX: J94.8 Other specified pleural conditions (principal); J18.9 Pneumonia, unspecified organism; C34.01 Malignant neoplasm of right main bronchus; J98.11 Atelectasis; J91.8 Pleural effusion in other conditions classified elsewhere; I10 Essential (primary) hypertension; E78.5 Hyperlipidemia, unspecified; E11.40 Type 2 diabetes mellitus with diabetic neuropathy, unspecified; J44.9 Chronic obstructive pulmonary disease, unspecified; F39 Unspecified mood [affective] disorder; G47.33 Obstructive sleep apnea (adult) (pediatric); G25.0 Essential tremor; Z98.41 Cataract extraction status, right eye; Z98.42 Cataract extraction status, left eye; Z96.651 Presence of right artificial knee joint; Z87.891 Personal history of nicotine dependence; I48.91 Unspecified atrial fibrillation; Z79.82 Long term (current) use of aspirin; Z79.84 Long term (current) use of oral hypoglycemic drugs; Z79.899 Other long term (current) drug therapy; Z88.0 Allergy status to penicillin; Z88.6 Allergy status to analgesic agent; Z91.048 Other nonmedicinal substance allergy status; Z20.828 Contact with and (suspected) exposure to other viral communicable diseases

== ENCOUNTER → 2020-02-12 | Outpatient (CLI) | payer MEDICARE ==
[~2020-02-12] MED LIST changes: +ASPI81TA26 PO; +CALC600C3 PO; +COMBAER6 INH; +D31000TA2 PO; +FURO20TA2 PO; +GABA-1171 PO; +GLIP5TAB20 PO; +METO1TAB32 PO; +PROA1AER2 INH
--- NOTE | 2020-02-12 14:15 | REP ---
INDICATION: SM CELL LUNG CANCER; PT NEEDS TO GO BACK TO [facility]ER [facility] COMPARISON: 01/31/2020. TECHNIQUE: PA/Lateral FINDINGS: The right hydropneumothorax appears quite similar to the prior study. The right pleural drainage catheter has been removed. Biapical pleural thickening is unchanged. Left basilar interstitial opacities are unchanged. The heart mediastinum appear unchanged. There are degenerative changes of the spine without compression deformity. IMPRESSION: Right hydropneumothorax appears unchanged compared to the prior study. The right pleural drainage catheter has been removed. <Electronically signed by Sharad French > 02/12/20 [id number]
== END ==
LOC: M RAD 13:48
PROVIDERS: ATTEND Specialist
DX: C34.90 Malignant neoplasm of unspecified part of unspecified bronchus or lung (principal)

== ENCOUNTER 2020-02-20 10:39 | Outpatient (RCR) | payer MEDICARE ==
--- NOTE | 2020-01-31 14:58 | IPN ---
PROGRESS NOTE DATE: 01/31/2020 SUBJECTIVE: Mrs. Gómez is again feeling better today. She is breathing well at rest, however when she does get up and around, she does become short of breath which is her baseline. She has only put out 15 cc in the last 12 hours from the catheter. OBJECTIVE: VITALS: T-max 98.5 with heart rate 83 to 90, respiratory rate that is constant at 18, who is 91 to 92% saturated on room air and blood pressure ranging between 140/60 to 132/63. INTAKE AND OUTPUT: The past 24 hours recorded as 1240 in and 2435 out for a negativity of nearly 1200 cc. She put out 235 cc from the chest tube yesterday and there is no air leak. As noted above, she put out 15 cc in the last 12 hours. Weight today is 61.2 kilos compared to 60.5 kilos yesterday. PHYSICAL EXAMINATION: LUNGS: Her lungs still show markedly decreased breath sounds with E to A egophony in the right lower hemithorax. Percussion note is also dull in the lower hemithorax. Left side shows normal vesicular sounds. I hear no wheezes, rhonchi or rales. Percussion is full to the diaphragm on the left. CARDIAC: Shows the same 2-3 ejection murmur at the right upper sternal border and left lower sternal border. I cannot feel her PMI. S1 and S2 are normal. ABDOMEN: Soft, nontender. Bowel sounds are positive. There is no hepatomegaly. No CVA tenderness. EXTREMITIES: Show no pretibial edema. No calf tenderness. No differential swelling of the upper extremities. SKIN: Warm, dry and perfused without cyanosis or mottling including that of the nail beds and knees. NECK: Supple. There is no jugular venous distention. No subcutaneous emphysema. Trachea is midline. Mouth shows the mucous membranes to be pink and moist. Lips and gums without lesions. The thrush has now resolved. EYES: Show her pupils to be equal and reactive. Extraocular motions are intact. Sclerae are nonicteric. NEUROLOGIC: Shows II-XII intact. Normal gross motor, gross sensation intact. Gait is not tested. PSYCHIATRIC: Shows her to be awake, alert, and oriented x3 with appropriate mood and affect and conversational. LABORATORY DATA: White count still 20.9, which is essentially unchanged from over the course of her admission. Hemoglobin/hematocrit 10.5/36.1; slightly up from 10.3 and 33.0 yesterday. This is probably secondary to hemoconcentration. Platelet count 455,000 and stable. Differential shows 72% neutrophils, 9% lymphocytes, 7% monocytes, she now has 10% eosinophils. There are no mature forms of toxic granulations. Her electrolytes are normal with BUN and creatinine 12 and 0.51, glucose 103 and calcium 8.7. Magnesium 2.0. IMAGING STUDIES: Her chest x-ray today is essentially unchanged from yesterday's. She has the air fluid level where the lung is not expanded to the chest wall and is entrapped. Catheter looks to be in good place. The cephalization of vessels has improved on the left side. IMPRESSION: 1. Adenocarcinoma of right lung stage 4 to pleura. 2. Pleural effusion; status post pigtail catheter placement and TPA pleurolysis. 3. Hypertension. 4. Diabetes. 5. Childhood asthma. 6. Obstructive sleep apnea. 7. Essential tremor. PLAN/DISCUSSION: I am going to discontinue the chest catheter today. I have explained to the patient that because the lung is entrapped, the fluid is going to reoccur. When she came in, she was quite short of breath even at rest and that has vastly improved. We did place her on antibiotics, but no cultures have grown. I am not entirely convinced that she had an empyema. I am not at all convinced that she had a parapneumonic effusion secondary to her infection. I really cannot explain well why she is less short of breath other than diuresis and an underlying cardiac failure. She does have a very significant eosinophilia, which I suspect is secondary to her malignancy. Even subtracting out the contribution of eosinophilia to her white count, it would still leave her with 18,000. I would recommend that she be considered for discharge in the morning, to be followed up by Dr. Gutierrez and radiation therapy.
[~2020-02-20 10:39] MED LIST changes: +MAGICMW PO
== END 2020-02-22 ==
LOC: M ONCR 10:39
PROVIDERS: ATTEND General Practice
DX: C34.31 Malignant neoplasm of lower lobe, right bronchus or lung (principal); I10 Essential (primary) hypertension; E11.9 Type 2 diabetes mellitus without complications; G47.33 Obstructive sleep apnea (adult) (pediatric)

== ENCOUNTER 2020-02-27 14:32 | Inpatient (IN) | payer MEDICARE ==
[~2020-02-27] VITALS: Ht 157.5 cm; Wt 54.5 kg
[2020-02-27] MEDS ORDERED: MECLIZINE 25 MG TABLET PO ONE (15:30)
[2020-02-27 15:55] LABS: BASO # 0.1 10^3/uL (0.0-0.2); BASO % 0.5 % (0.0-1.0); EOS # 2.7 10^3/uL (0.0-0.5); EOS % 13.6 % (0.0-3.0); HEMATOCRIT 40.7 % (36.0-47.0); HEMOGLOBIN 12.3 g/dl (12.0-15.5); LYMPH # 1.4 10^3/uL (1.5-5.0); LYMPH % 6.8 % (24.0-44.0); MEAN CORPUSCULAR HEMOGLOBIN 25.7 pg (27.0-33.0); MEAN CORPUSCULAR HGB CONC 30.2 g/dl (32.0-36.5); MEAN CORPUSCULAR VOLUME 85.1 fl (80.0-96.0); MONO # 1.3 10^3/uL (0.0-0.8); MONO % 6.6 % (0.0-5.0); NEUTROPHILS # 14.4 10^3/uL (1.5-8.5); NEUTROPHILS % 71.8 % (36.0-66.0); PLATELET COUNT, AUTOMATED 258 10^3/uL (150-450); RED BLOOD COUNT 4.78 10^6/uL (4.00-5.40); WHITE BLOOD COUNT 20.1 10^3/uL (4.0-10.0)
[2020-02-27 16:10] LABS: INR 1.05; PROTHROMBIN TIME 13.9 SECONDS (12.5-14.3)
--- NOTE | 2020-02-27 16:24 | REP ---
INDICATION: SOB COMPARISON: 02/12/2020 TECHNIQUE: Portable AP view of the chest FINDINGS: Chronic changes with superimposed bilateral opacities (right greater than left) right pleural effusion and possible hydropneumothorax cannot be excluded. IMPRESSION: Superimposed bilateral opacities and possible continued right pleural effusion and or hydropneumothorax. <Electronically signed by Daniel Noonan > 02/27/20 [id number]
[2020-02-27] MEDS ORDERED: NS 500 ML IV ONE (16:45)
--- NOTE | 2020-02-27 17:44 | ECGEPIP ---
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
[2020-02-27 18:07] LABS: ALBUMIN 1.9 GM/DL (3.2-5.2); ALT/SGPT 9 U/L (12-78); BILIRUBIN,DIRECT 0.1 MG/DL (0.0-0.2); BILIRUBIN,TOTAL 0.3 MG/DL (0.2-1.0); BLOOD UREA NITROGEN 17 MG/DL (7-18); CALCIUM LEVEL 9.3 MG/DL (8.8-10.2); CARBON DIOXIDE LEVEL 31 MEQ/L (21-32); CHLORIDE LEVEL 101 MEQ/L (98-107); CK-MB VALUE MASS < 1.0 NG/ML (<3.6); CPK CREATINE PHOSPHOKINASE 25 U/L (26-192); CREATININE FOR GFR 0.39 MG/DL (0.55-1.30); GLOMERULAR FILTRATION RATE > 60.0 (>39); GLUCOSE, FASTING 99 MG/DL (70-100); NT-PRO BNP 456 PG/ML (<125); SODIUM LEVEL 138 MEQ/L (136-145); TOTAL PROTEIN 6.3 GM/DL (6.4-8.2); TROPONIN I < 0.02 NG/ML (< 0.10)
--- NOTE | 2020-02-27 18:15 | REPVR ---
PROCEDURE INFORMATION: Exam: CT Head Without Contrast Exam date and time: 02/27/2020 5:36 PM Age: 69 years old Clinical indication: Dizziness; Additional info: Dizzy, weak TECHNIQUE: Imaging protocol: Computed tomography of the head without contrast. Radiation optimization: All CT scans at this facility use at least one of these dose optimization techniques: automated exposure control; mA and/or kV adjustment per patient size (includes targeted exams where dose is matched to clinical indication); or iterative reconstruction. COMPARISON: MRI-Brain W/O FOLL BY WITH 01/12/2020 10:00 AM FINDINGS: Brain: No intracranial mass, mass effect or midline shift. No acute intracranial hemorrhage. No CT evidence of acute cortical infarct. Mild decreased attenuation in periventricular/centrum semiovale white matter. Ventricles, cisterns, and sulci are normal in size for age. Bones/joints: No calvarial fracture or destructive process. Paranasal sinuses: Imaged paranasal sinuses are normally aerated. Mastoid air cells: Mastoid air cells and middle ear structures are normally aerated. Orbital cavity: Imaged orbits are unremarkable. Soft tissues: No focal extracranial soft tissue swelling. IMPRESSION: No acute or concerning focal intracranial abnormality. Electronically signed by: Chris Escobar On 02/27/2020 18:15:52 PM
[2020-02-27] MEDS ORDERED: POTASSIUM CHLORIDE 10 MEQ SR TABLET PO ONE (18:30)
--- NOTE | 2020-02-27 18:31 | REPVR ---
PROCEDURE INFORMATION: Exam: CT Chest Without Contrast; Diagnostic Exam date and time: 02/27/2020 5:36 PM Age: 69 years old Clinical indication: Shortness of breath; Additional info: SOB TECHNIQUE: Imaging protocol: Diagnostic computed tomography of the chest without contrast. 3D rendering (Not supervised by radiologist): MIP and/or 3D reconstructed images were created by the technologist. Radiation optimization: All CT scans at this facility use at least one of these dose optimization techniques: automated exposure control; mA and/or kV adjustment per patient size (includes targeted exams where dose is matched to clinical indication); or iterative reconstruction. COMPARISON: CT Chest without contrast 01/28/2020 7:43 AM FINDINGS: Lungs: Multiple bilateral peripheral pulmonary parenchymal opacities, predominantly semi-solid and solid. Findings consistent with multifocal pneumonitis, likely viral. There has been slight progression in comparison to the prior study. Also noted are foci of septal thickening in the subpleural lung zones suggesting underlying interstitial lung disease. Redemonstration of occlusion of the bronchus intermedius on the right and right middle lobe bronchus by a soft tissue mass measuring 6.7 x 6.2 cm maximally, findings consistent with a malignancy in combination with gross atelectasis of the right middle and lower lobes. Pleural space: Loculated right-sided hydropneumothorax consistent with a pleural empyema. Heart: Dense calcification of the mitral valve annulus. Calcifications in the aortic valve. There is severe atherosclerotic calcification of the coronary arteries. Minimal pericardial effusion. Aorta: There is fusiform dilatation of the ascending thoracic aorta which measures 3.7 cm. maximally. There is no saccular component. Lymph nodes: Unremarkable. No enlarged lymph nodes. Liver: Enlarged lateral segment of the left lobe of the liver associated with mild lobularity of the hepatic surface, findings suggesting cirrhotic morphology to be correlated clinically. Bones/joints: The spine demonstrates moderate degenerative changes. Suspected lytic foci in the right 9th and 10th ribs. Soft tissues: Unremarkable. IMPRESSION: 1. Multiple bilateral peripheral pulmonary parenchymal opacities, predominantly semi-solid and solid. Findings consistent with multifocal pneumonitis, likely viral. Small hematogenous metastatic foci not excluded. There has been slight progression in comparison to the prior study. 2. Also noted are foci of septal thickening in the subpleural lung zones suggesting underlying interstitial lung disease. 3. Loculated right-sided hydropneumothorax consistent with a pleural empyema. 4. Redemonstration of occlusion of the bronchus intermedius on the right and right middle lobe bronchus by a soft tissue mass measuring 6.7 x 6.2 cm maximally, findings consistent with a malignancy in combination with gross atelectasis of the right middle and lower lobes. Findings grossly stable. 5. Suspected lytic foci in the right 9th and 10th ribs. 6. There is fusiform dilatation of the ascending thoracic aorta which measures 3.7 cm. maximally. There is no saccular component. Electronically signed by: Rober Hampton On 02/27/2020 18:31:29 PM
[2020-02-27] MEDS ORDERED: MEROPENEM INJ 1 GM in IV 1 EA IV ONE (19:15)
[2020-02-27] MEDS ORDERED: ISOVUE-370 76% 100ML VIAL As Ordered ONE (19:17)
--- NOTE | 2020-02-27 19:53 | REPVR ---
PROCEDURE INFORMATION: Exam: CT Angiography Chest With Contrast Exam date and time: 02/27/2020 7:39 PM Age: 69 years old Clinical indication: Shortness of breath; Additional info: SOB R/O pe per Dr. Samuel TECHNIQUE: Imaging protocol: Computed tomographic angiography of the chest with intravenous contrast. 3D rendering (Not supervised by radiologist): MIP and/or 3D reconstructed images were created by the technologist. Radiation optimization: All CT scans at this facility use at least one of these dose optimization techniques: automated exposure control; mA and/or kV adjustment per patient size (includes targeted exams where dose is matched to clinical indication); or iterative reconstruction. Contrast material: ISOVUE 370; Contrast volume: 75 ml; Contrast route: INTRAVENOUS (IV); COMPARISON: CT Chest without contrast 02/27/2020 5:37 PM FINDINGS: Pulmonary arteries: There is enlargement of the central pulmonary arteries, findings which can be associated with pulmonary arterial hypertension which should be correlated clinically. There are no pulmonary emboli. Aorta: There is no aortic dissection or aneurysm. There is mild to moderate atherosclerosis in the thoracic aorta. Lungs: Stable appearance of previously reported pulmonary parenchymal findings including occlusion of the bronchus intermedius and right middle lobe bronchus, complete atelectasis of the right middle and right lower lobes with a large area of consolidation in the right lower lobe and a more centrally located perihilar mass. Pleural space: Loculated fluid collection in the right pleural cavity with thickened pleura consistent with a empyema. Heart: Unremarkable. No cardiomegaly. No pericardial effusion. Lymph nodes: Unremarkable. No enlarged lymph nodes. Bones/joints: The spine demonstrates moderate degenerative changes. Osteoporosis. Redemonstration of small possible lytic foci in the right 9th and 10th ribs. Soft tissues: Unremarkable. IMPRESSION: 1. Stable appearance of previously reported pulmonary parenchymal findings including occlusion of the bronchus intermedius and right middle lobe bronchus, complete atelectasis of the right middle and right lower lobes with a large area of consolidation in the right lower lobe and a more centrally located perihilar mass. 2. Loculated fluid collection in the right pleural cavity with thickened pleura consistent with a empyema. 3. There is no aortic dissection or aneurysm. 4. There is enlargement of the central pulmonary arteries, findings which can be associated with pulmonary arterial hypertension which should be correlated clinically. 5. There are no pulmonary emboli. Electronically signed by: Rober Hampton On 02/27/2020 19:54:04 PM
[2020-02-27] MEDS ORDERED: LISI-542 PO (20:35)
[2020-02-27] MEDS ORDERED: ATOR40TA75 PO (20:35)
--- NOTE | 2020-02-27 20:44 | HPEPDOC ---
[facility] Medical History & Physical Date of Admission Feb 27, 2020 Date of Service: Feb 27, 2020 History and Physical CHIEF COMPLAINT: dyspnea HISTORY OF PRESENT ILLNESS: 69 yo F with a hx of lung ca, afib w rvr, Dm2, presented to [facility] ER with progressibely worsening shortness of breath for the past 5 days. Patient was recently admitted for managment of large pleural effusion with questionable empyeme, which was treated with chest tube by Dr. Samuel. Patient receviwed chemo on 02/23/19. Active treatment with keytruda. Per ED report, Dr. Samuel was consulted, revieved CT chest imaging. Will see patient in AM for likely chest tube placement, low suspicion for empyema Given empiric meropenem in the ER for suspected empyema, supported by elevated WBC. PAST MEDICAL HISTORY: Recently diagnosed Adenocarcinoma of the right lung (Stage IIIa vs IV) Right sided effusion with rare atypical cells Post- cardiomyopathy HTN DLP NIDDM2 COPD / Childhood asthma TRINY (not compliant with CPAP) Mood disorder Neuropathy Essential tremor PAST SURGICAL HISTORY: Cataract extraction bilaterally Right knee arthroplasty Left foot bunionectomy Left wrist fracture SOCIAL HISTORY: former, smoker 15-20 years 2 ppd denies etoh use denies travel lives with FAMILY HISTORY: Lung Ca in father. ALLERGIES: Please see below. REVIEW OF SYSTEMS: CONSTITUTIONAL: . HEENT: . CARDIOVASCULAR: . RESPIRATORY: . GASTROINTESTINAL: . GENITOURINARY: . SKIN: . MUSCULOSKELETAL: . NEUROLOGICAL: . PSYCHIATRIC: . ENDOCRINE: . HEMATOLOGIC/LYMPHATIC: . HOME MEDICATIONS: Please see below. PHYSICAL EXAMINATION: VITAL SIGNS: Temperature , pulse , respiratory rate , blood pressure , pulse oximetry % on room air. GENERAL APPEARANCE: . HEENT: . CARDIOVASCULAR: . LUNGS: . ABDOMEN: . MUSCULOSKELETAL: . EXTREMITIES: . NEUROLOGICAL: . PSYCHIATRIC: . LABORATORY DATA: See below. IMAGING: MICROBIOLOGY: Please see below. ASSESSMENT: . . PLAN: #Shortness of breath - likely 2/2 large pleural effusion - saturating > 92% - Dr. Peterson consulted, eval in am for chest tube placement #R pleural effusion - WBC 20 - possible empyema - recieved meropenem in ER - c/w IV abx levaquin and flagyl Afib with RVR - BP stable - HR 100-110 - resume home meds (did not take in am) - per patient, AC was stopped by cardiology (Dr. Dela Cruz). CHF HTN - resume home meds DM2 COPD TRINY Neuropathy with essential tremor Mood disorder: venlafaxine DVT ppx: lovenox 40 mg SC. Adenocarcinoma of R lung Dispo: PT/OT for deconditioning. DNR/DNI as per patient wishes verbalized to me in the ER. MOLST form signed and witnessed. Vital Signs Vital Signs Date Time Temp Pulse Resp B/P (MAP) Pulse Ox O2 Delivery O2 Flow Rate FiO2 02/27/20 18:32 95 94 02/27/20 18:30 120/60 (80) 02/27/20 14:51 Room Air 02/27/20 14:41 97.6 20 Laboratory Data Labs 24H Laboratory Tests 2 02/27/20 15:48: Immature Granulocyte % (Auto) 0.7, Neutrophils (%) (Auto) 71.8H, Lymphocytes (%) (Auto) 6.8L, Monocytes (%) (Auto) 6.6H, Eosinophils (%) (Auto) 13.6H, Basophils (%) (Auto) 0.5, Neutrophils # (Auto) 14.4H, Lymphocytes # (Auto) 1.4L, Monocytes # (Auto) 1.3H, Eosinophils # (Auto) 2.7H, Basophils # (Auto) 0.1, Nucleated Red Blood Cells % (auto) 0.0, Prothrombin Time 13.9, Prothromb Time International Ratio 1.05 02/27/20 16:55: Anion Gap 6L, Glomerular Filtration Rate > 60.0, Calcium Level 9.3, Total Bilirubin 0.3, Direct Bilirubin 0.1, Aspartate Amino Transf (AST/SGOT) 11, Alanine Aminotransferase (ALT/SGPT) 9L, Alkaline Phosphatase 74, Total Creatine Kinase 25L, Creatine Kinase MB < 1.0, Creatine Kinase MB Relative Index 4.00, Troponin I < 0.02, IC-Bvx-A-Type Natriuretic Peptide 456H, Total Protein 6.3L, A lbumin 1.9L, Albumin/Globulin Ratio 0.4L, Thyroid Stimulating Hormone (TSH) 1.130 CBC/BMP Laboratory Tests 02/27/20 15:48 02/27/20 16:55 Microbiology Microbiology 02/27/20 Blood Culture, Received Pending 02/27/20 Blood Culture, Received Pending 02/27/20 Respiratory Virus Panel (PCR) ([facility]) - Final, Complete Home Medications Scheduled Aspirin (Aspirin EC) 81 Mg Tablet.dr, 81 MG PO DAILY Atorvastatin Calcium (Atorvastatin Calcium) 40 Mg Tablet, 40 MG PO DAILY Calcium Carbonate/Vitamin D3 (Calcium 600+D Softgel) 1 Each Capsule, 1 CAP PO BID Dulaglutide (Trulicity) 0.75 Mg/0.5 Ml Pen.injctr, 0.75 MG SC QWEEK SUNDAYS Fluticasone/Vilanterol (Breo Ellipta 100-25 Mcg INH) 1 Each Blst.w.dev, 1 PUFF INH DAILY Furosemide (Furosemide) 20 Mg Tablet, 20 MG PO DAILY Gabapentin (Gabapentin) 100 Mg Capsule, 200 MG PO BID Glipizide (Glipizide ER) 5 Mg Tab.er.24, 5 MG PO DAILY Lisinopril (Lisinopril) 5 Mg Tablet, 5 MG PO DAILY Metformin HCl (Metformin HCl) 1,000 Mg Tab, 1,000 MG PO BID Metoprolol Succinate (Metoprolol Succinate) 25 Mg Tab.er.24h, 25 MG PO QHS Venlafaxine HCl (Venlafaxine HCl ER) 150 Mg Cap, 150 MG PO DAILY Scheduled PRN Albuterol Sulfate (Proair Respiclick) 90 Mcg Aer.pow.ba, 2 PUFF INH Q4H PRN for SHORTNESS OF BREATH Fluticasone Propionate (Fluticasone Propionate) 50 Mcg/Act Spr, 1 SPRAY NARES QHS PRN for CONGESTION Hydrocodone/Acetaminophen (Hydrocodone-Acetamin 5-325 mg) 1 Each Tablet, 1 TAB PO Q4H PRN for PAIN Ipratropium/Albuterol Sulfate (Combivent Respimat 20-100 Mcg) 4 Gm Mist.inhal, 2 PUFF INH QID PRN for SHORTNESS OF BREATH Magic Mouthwash (First-Mouthwash Blm) 1 Ea Susp, 10 ML PO QID PRN for Dysphagia (Diphenhydramine/maalox/lidocaine 1:1:1) Take with straw by mouth and swallow Allergies Coded Allergies: Penicillins (Verified Allergy, Intermediate, HIVES, 12/26/19) aspirin (Verified Allergy, Intermediate, HIVES WITH NORMAL DOSE FOR SEVER AL DAYS, 12/26/19) nickel (Verified Allergy, Intermediate, rash, swelling, 12/26/19) DENNY PALMER MD Feb 27, 2020 20:44
[2020-02-28] MEDS: metroNIDAZOLE 500 MG in IV 1 EA IV SCH ×4 (00:23→23:25)
[2020-02-28 02:00] VITALS: BP 130/62
[2020-02-28] MEDS: LevoFLOXacin IV 750 MG in IV 1 EA IV SCH (02:59)
[2020-02-28] MEDS ORDERED: MAGIC MOUTHWASH SUSPENSION BTL PO PRN (04:30)
[2020-02-28] MEDS ORDERED: COMBIVENT RESPIMAT 100-20MCG INHALER 4GM INH PRN (04:30)
[2020-02-28] MEDS ORDERED: FLUTICASONE PROP 0.05% NASAL SPRAY 16 GM (FLONASE) NARES PRN (04:30)
[2020-02-28] MEDS: NORCO, ANEXSIA 5/325MG TABLET (HYDROcodone/ACETAMINOPHEN) PO PRN ×4 (05:14→21:12)
[2020-02-28 06:00] VITALS: BP 119/61
[2020-02-28] MEDS ORDERED: metFORMIN (GLUCOPHAGE) 1000 MG TABLET PO SCH (08:00)
[2020-02-28 08:45] VITALS: BP 116/57
[2020-02-28] MEDS ORDERED: glipiZIDE XL 5 MG TABCR PO SCH (09:00)
[2020-02-28] MEDS: ASPIRIN 81 MG ENTERIC TAB PO SCH (09:05)
[2020-02-28] MEDS: ATORVASTATIN 20 MG TAB PO SCH (09:05)
[2020-02-28] MEDS: FUROSEMIDE 20 MG TAB PO SCH (09:06)
[2020-02-28] MEDS: ENOXAPARIN 40MG/0.4ML SYRINGE (J1650 PER 10MG) SC SCH (09:07)
[2020-02-28] MEDS: lisinopriL 5 MG TAB PO SCH (09:07)
[2020-02-28] MEDS: GABAPENTIN 100 MG CAP PO SCH ×2 (09:07→21:12)
[2020-02-28] MEDS: VENLAFAXINE **XR** 75MG CAPSULE PO SCH (09:07)
[2020-02-28 09:38] LABS: BASO # 0.1 10^3/uL (0.0-0.2); BASO % 0.3 % (0.0-1.0); EOS # 1.9 10^3/uL (0.0-0.5); EOS % 12.1 % (0.0-3.0); HEMATOCRIT 37.9 % (36.0-47.0); HEMOGLOBIN 11.5 g/dl (12.0-15.5); LYMPH # 0.6 10^3/uL (1.5-5.0); MEAN CORPUSCULAR HEMOGLOBIN 26.6 pg (27.0-33.0); MEAN CORPUSCULAR HGB CONC 30.3 g/dl (32.0-36.5); MEAN CORPUSCULAR VOLUME 87.7 fl (80.0-96.0); MONO # 0.9 10^3/uL (0.0-0.8); MONO % 5.5 % (0.0-5.0); NEUTROPHILS # 12.3 10^3/uL (1.5-8.5); NEUTROPHILS % 77.3 % (36.0-66.0); PLATELET COUNT, AUTOMATED 224 10^3/uL (150-450); RED BLOOD COUNT 4.32 10^6/uL (4.00-5.40); WHITE BLOOD COUNT 15.9 10^3/uL (4.0-10.0)
[2020-02-28] MEDS ORDERED: DEXTROSE 50% 50 ML SYRINGE IV PRN (09:45)
[2020-02-28] MEDS ORDERED: GLUCOSE 4GM CHEW TABLET PO PRN (09:45)
[2020-02-28] MEDS ORDERED: GLUCAGON INJ 1MG VIAL SC PRN (09:45)
--- NOTE | 2020-02-28 10:01 | IPNPDOC ---
Text Note Date of Service The patient was seen on 02/28/20. NOTE Subjective: Patient seen and examined at bedside. No acute overnight events reported. Patient this morning. Complains of right sided anterior chest pain. She also had many questions regarding DNR/DNI. Her CODE STATUS was discussed at length at bedside. Objective: General: NAD, lying comfortably in bed, elderly, chronically ill appearing HEENT: NC/AT, EOMI Lungs: CTA B/L, diminished right breath sounds Heart: +S1S2, RRR Abd: soft, NT, +BS Ext: no edema A/P: 69 yo F with a hx of lung ca, afib w rvr, Dm2, presented to [facility] ER with progressibely worsening shortness of breath for the past 5 days. Patient was recently admitted for managment of large pleural effusion with questionable empyeme, which was treated with chest tube by Dr. Samuel. Patient received chemo on 02/23/19. Active treatment with keytruda. Presents for worsening shortness of breath with chest pain, found to have recurrence of fluid with suspicion for empyema. #Shortness of breath/Adenocarcinoma of R lung - likely 2/2 large pleural effusion - saturating > 92% - Dr. Samuel consulted, eval in am for possible chest tube placement #R pleural effusion - possible empyema - received meropenem in ER - c/w IV abx levaquin and flagyl #Afib with RVR - BP stable - HR 100-110 - resume home meds (did not take in am) - per patient, AC was stopped by cardiology (Dr. Dela Cruz). #CHF/post- cardiomyopathy #HTN - resume home meds #DLP #DM2 #COPD #TRINY - non-compliant with CPAP #Neuropathy with essential tremor #Mood disorder: venlafaxine #DVT ppx: lovenox 40 mg SC. VS,Fishbone, I+O VS, Fishbone, I+O Laboratory Tests 02/27/20 15:48 02/27/20 16:55 Vital Signs Date Time Temp Pulse Resp B/P (MAP) Pulse Ox O2 Delivery O2 Flow Rate FiO2 02/28/20 09:07 116/57 02/28/20 08:50 93 Room Air 02/28/20 08:45 96.9 104 20 2.0 I&O- Last 24 Hours up to 6 AM 02/28/20 06:00 Intake Total 950 ml Balance 950 ml ALICIA SHELDON MD Feb 28, 2020 10:01
[2020-02-28 10:07] LABS: ALBUMIN 1.9 GM/DL (3.2-5.2); ALT/SGPT 11 U/L (12-78); BILIRUBIN,TOTAL 0.4 MG/DL (0.2-1.0); BLOOD UREA NITROGEN 13 MG/DL (7-18); CALCIUM LEVEL 8.9 MG/DL (8.8-10.2); CARBON DIOXIDE LEVEL 31 MEQ/L (21-32); CHLORIDE LEVEL 103 MEQ/L (98-107); CREATININE FOR GFR 0.42 MG/DL (0.55-1.30); GLOMERULAR FILTRATION RATE > 60.0 (>39); GLUCOSE, FASTING 85 MG/DL (70-100); SODIUM LEVEL 140 MEQ/L (136-145); TOTAL PROTEIN 6.2 GM/DL (6.4-8.2)
[2020-02-28] MEDS: MORPHINE 2 MG/ML 1ML VIAL (J2270) IV PRN ×2 (10:07→23:26)
[2020-02-28 10:37] LABS: MAGNESIUM LEVEL 1.2 MG/DL (1.8-2.4)
[2020-02-28] MEDS: MAG SULF 1GM/100ML (MAG RUN) 1 GM in IV 1 EA IV SCH ×2 (11:17→12:22)
--- NOTE | 2020-02-28 11:53 | CR ---
CONSULTATION DATE: 02/28/2020 REASON FOR CONSULTATION: The patient is seen at the request of the emergency room and the hospitalist service for shortness of breath and continued pleural effusion. 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 She was admitted to the hospital in early January with a pleural effusion. It was thought that maybe she had a pneumonia and parapneumonic effusion and she was started on antibiotics. I placed a pigtail catheter and drained her pleural effusion. Subsequent x-rays after drainage showed the lung consolidated and not coming out to the chest wall. The catheter was eventually removed and she continues on antibiotics. It was accepted that the fluid would return because the lung was not expanding to the chest wall. She returned yesterday to the emergency room complaining of increasing shortness of breath over the last few days. She has had one dose of Keytruda and is continuing a course of radiation. She thinks she has already undergone five treatments with radiation. She also complains of some pain on her right side that goes from her shoulder down to her hips. She denies a cough or sputum production. She feels a bit chilly, but has an underlying essential tremor. She does not have teeth rattling chills. There have been no sweats or fever. She has a markedly decreased appetite, but no dysphagia. PAST MEDICAL ILLNESSES: 1. Diabetes. 2. Hypertension. 3. Essential tremor. 4. TRINY noncompliant with CPAP. 5. Hyperlipidemia. 6. cardiomyopathy after a section in [place] in the remote past. 7. Childhood asthma. PAST SURGICAL HISTORY: 1. Bilateral cataract replacements. 2. Right knee arthroplasty. 3. Fractured wrist. 4. Prior as noted above. TRAVEL HISTORY: She has traveled to the [facility] and [facility] in the remote past. EXPOSURES: No dogs, birds, or cats presently. Never had birds. HABITS: She smoked up to two packs per day of Marlboros for approximately 30 years. She only drinks alcohol occasionally and denies illicit drugs. 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 No convincing asbestos exposure. FAMILY HISTORY: Father of lung cancer as did her brother along with COPD; both were smokers. ALLERGIES: PENICILLIN WHICH CAUSES HIVES AND ASPIRIN WHICH CAUSES HIVES. REVIEW OF SYSTEMS: Constitutional: See HPI. Without fever, true chills, or sweats. Without night sweats. Eyes without diplopia, without amaurosis fugax, without prior jaundice. Mouth edentulous wears dentures. Respiratory: See HPI. Cardiac: Prior episode of atrial fibrillation when she was last admitted to this hospital from the emergency room in early January. She now has a sinus rhythm. No history of myocardial infarctions or intermittent claudication. GI without nausea, vomiting, or constipation. Has a decreased appetite as noted above. She does have chronic diarrhea, but without hematemesis, melena, or hematochezia. Denies abdominal pain. without dysuria, hematuria, or history of renal stones. Neurologic: Has essential tremor with paresthesias. No paralysis and no prior seizures. Endocrine with diabetes and without thyroid disease. Psychiatric without pathological anxieties, depressions, or psychoses. HOME MEDICATIONS: - aspirin 81 mg q. daily - atorvastatin 40 mg q. daily - calcium carbonate one capsule b.i.d. - Trulicity subcutaneously q. week - Breo Ellipta 100/25 one puff q. daily - Lasix 20 mg q. daily - gabapentin 200 mg b.i.d. - glipizide 5 mg q. daily - lisinopril 5 mg q. daily - metformin 1000 mg b.i.d. - metoprolol succinate 25 mg at bedtime - [id number] mg q. daily PHYSICAL EXAMINATION: GENERAL APPEARANCE: Chronically ill and weak 73-year-old white female breathing comfortably at rest. VITAL SIGNS: Temperature 96.9, heart rate 104 in sinus rhythm, respiratory rate 20 without the use of accessory muscle. She is 98% saturated on 2 liters nasal cannula and her blood pressure is 115/57. HEENT: Eyes with pupils equal, round, and reactive to light. Extraocular movements intact. Sclerae nonicteric. Head normocephalic. Mouth shows her mucous membranes to be pink and moist. Lips and gums without lesions. There is no thrush. She is edentulous. NECK: Supple. There is supple. There is no jugular venous distention. No subcutaneous emphysema. Trachea is midline. There is no thyromegaly or lymphadenopathy. LUNGS: Show markedly decreased breath sounds on the right side with E:A egophony in the lower hemithorax. The left lung shows normal vesicular sounds. Percussion note is dull on the right side mcfp up the chest. CARDIAC: Without murmurs, clicks, gallops, or rubs. I cannot feel her PMI. S1, S2 are normal. ABDOMEN: Soft and nontender. Bowel sounds positive. There is no hepatomegaly and no CVA tenderness. EXTREMITIES: Show no pretibial edema and no calf tenderness. No differential swelling of the upper extremities. NEUROLOGIC: Shows II through XII intact. Normal gross motor. Gross sensation intact. Gait is not tested. SKIN: Warm, dry, and perfuse without cyanosis or mottling, including that of the nail beds and knees. PSYCHIATRIC: Shows her to be awake, alert, and oriented x3 with appropriate mood and affect and conversational. LABORATORY DATA: Her white count today is 15.9 down from 20.1 yesterday. She was started on antibiotics yesterday. Hemoglobin and hematocrit are 11.5 and 37.9 respectively with a platelet count of 224,000. Differential shows 77% neutrophils, 4% lymphocytes, and 5% monocytes. There are no immature forms or toxic granulations. Electrolytes are normal with a BUN and creatinine of 13 and 0.42, calcium of 8.9 with an albumin of 1.9. IMAGING: Her CT scan done yesterday in the emergency room shows a consolidated right lower lobe with tumor mass. The pleural effusion that is present is unchanged from her last CT done in her prior admission. IMPRESSION: 1. Stage IV poorly differentiated adenocarcinoma. 2. Consolidation of right lower lobe with obstruction of the bronchus intermedius. 3. Leukocytosis. 4. Postobstructive atelectasis maybe pneumonia. 5. Diabetes. 6. Hypertension. 7. Hyperlipidemia. 8. Mild aortic stenosis and aortic insufficiency. 9. Pleural effusion probably not parapneumonic. PLAN AND DISCUSSION: Removing fluid is not going to improve her shortness of breath. I think the shortness of breath can be explained as effects from radiation and maybe even Keytruda; although I do not see any convincing evidence of a pneumonitis at this point in time. I will defer placing a pigtail catheter as I do not think it is going to help her shortness of breath and I do not think this really represents an empyema. I do note that her leukocytosis is improved from yesterday of 20 down to 15 with the addition of antibiotics consisting of levofloxacin and Flagyl.
[2020-02-28] MEDS: HumaLOG INSULIN (NovoLOG) PER UNIT SC SCH ×3 (12:00→21:00)
[2020-02-28 14:20] VITALS: BP 96/67
[2020-02-28] MEDS: METOPROLOL SUCC *XL* 25MG TAB (TopROL *XL*) PO SCH (21:00)
[2020-02-28 22:00] VITALS: BP 97/66
[2020-02-29] MEDS: LevoFLOXacin IV 750 MG in IV 1 EA IV SCH ×2 (00:53→23:22)
[2020-02-29 06:00] VITALS: BP 99/62
[2020-02-29 06:29] LABS: HEMATOCRIT 39.5 % (36.0-47.0); HEMOGLOBIN 11.2 g/dl (12.0-15.5); MEAN CORPUSCULAR HEMOGLOBIN 26.4 pg (27.0-33.0); MEAN CORPUSCULAR HGB CONC 28.4 g/dl (32.0-36.5); MEAN CORPUSCULAR VOLUME 92.9 fl (80.0-96.0); PLATELET COUNT, AUTOMATED 186 10^3/uL (150-450); RED BLOOD COUNT 4.25 10^6/uL (4.00-5.40); WHITE BLOOD COUNT 12.8 10^3/uL (4.0-10.0)
[2020-02-29 06:57] LABS: BLOOD UREA NITROGEN 12 MG/DL (7-18); CALCIUM LEVEL 8.9 MG/DL (8.8-10.2); CARBON DIOXIDE LEVEL 32 MEQ/L (21-32); CHLORIDE LEVEL 101 MEQ/L (98-107); CREATININE FOR GFR 0.43 MG/DL (0.55-1.30); GLOMERULAR FILTRATION RATE > 60.0 (>39); GLUCOSE, FASTING 60 MG/DL (70-100); POTASSIUM SERUM 3.6 MEQ/L (3.5-5.1); SODIUM LEVEL 137 MEQ/L (136-145)
[2020-02-29] MEDS: metroNIDAZOLE 500 MG in IV 1 EA IV SCH ×3 (07:17→23:22)
[2020-02-29] MEDS: NORCO, ANEXSIA 5/325MG TABLET (HYDROcodone/ACETAMINOPHEN) PO PRN ×3 (07:23→23:24)
[2020-02-29] MEDS: HumaLOG INSULIN (NovoLOG) PER UNIT SC SCH ×4 (07:30→21:00)
[2020-02-29] MEDS: ASPIRIN 81 MG ENTERIC TAB PO SCH (08:26)
[2020-02-29] MEDS: VENLAFAXINE **XR** 75MG CAPSULE PO SCH (08:26)
[2020-02-29] MEDS: FUROSEMIDE 20 MG TAB PO SCH (08:27)
[2020-02-29] MEDS: GABAPENTIN 100 MG CAP PO SCH ×2 (08:27→20:33)
[2020-02-29] MEDS: ATORVASTATIN 20 MG TAB PO SCH (08:27)
[2020-02-29] MEDS: lisinopriL 5 MG TAB PO SCH ×2 (08:28→09:00)
[2020-02-29] MEDS: ENOXAPARIN 40MG/0.4ML SYRINGE (J1650 PER 10MG) SC SCH (08:29)
[2020-02-29 10:23] LABS: MAGNESIUM LEVEL 1.5 MG/DL (1.8-2.4)
--- NOTE | 2020-02-29 13:42 | IPNPDOC ---
Text Note Date of Service The patient was seen on 02/29/20. NOTE Subjective: Patient seen and examined at bedside. No acute overnight events reported. Patient has no new medical complaints this morning. Objective: General: NAD, lying comfortably in bed, elderly, chronically ill appearing HEENT: NC/AT, EOMI Lungs: CTA B/L, diminished right breath sounds Heart: +S1S2, RRR Abd: soft, NT, +BS Ext: no edema A/P: 69 yo F with a hx of lung ca, afib w rvr, Dm2, presented to [facility] ER with progressibely worsening shortness of breath for the past 5 days. Patient was recently admitted for managment of large pleural effusion with questionable empyeme, which was treated with chest tube by Dr. Samuel. Patient received chemo on 02/23/19. Active treatment with keytruda. Presents for worsening shortness of breath with chest pain, found to have recurrence of fluid with suspicion for empyema. #Shortness of breath/Adenocarcinoma of R lung - likely 2/2 large pleural effusion - saturating > 92% - no indication for chest tube - appreciate TS consultation #R pleural effusion - c/w IV abx levaquin and flagyl #Afib with RVR - BP stable - HR 100-110 - resume home meds (did not take in am) - per patient, AC was stopped by cardiology (Dr. Dela Cruz). #CHF/post- cardiomyopathy #HTN - resume home meds #DLP #DM2 #COPD #TRINY - non-compliant with CPAP #Neuropathy with essential tremor #Mood disorder: venlafaxine #DVT ppx: lovenox 40 mg SC. Dispo: pending further PT, placement to rehab VS,Fishbone, I+O VS, Fishbone, I+O Laboratory Tests 02/29/20 06:07 Vital Signs Date Time Temp Pulse Resp B/P (MAP) Pulse Ox O2 Delivery O2 Flow Rate FiO2 02/29/20 07:53 16 02/29/20 07:23 Room Air 02/29/20 06:00 98.0 107 99/62 (74) 92 02/28/20 08:45 2.0 I&O- Last 24 Hours up to 6 AM 02/29/20 06:00 Intake Total 1350 ml Output Total 950 ml Balance 400 ml ALICIA SHELDON MD Feb 29, 2020 13:42
[2020-02-29 14:00] VITALS: BP 106/60
[2020-02-29] MEDS: METOPROLOL SUCC *XL* 25MG TAB (TopROL *XL*) PO SCH (20:34)
[2020-02-29 22:00] VITALS: BP 106/60
[2020-03-01] MEDS: NORCO, ANEXSIA 5/325MG TABLET (HYDROcodone/ACETAMINOPHEN) PO PRN (04:46)
[2020-03-01 06:00] VITALS: BP 99/57
[2020-03-01 06:19] LABS: HEMATOCRIT 35.3 % (36.0-47.0); HEMOGLOBIN 10.5 g/dl (12.0-15.5); MEAN CORPUSCULAR HEMOGLOBIN 25.9 pg (27.0-33.0); MEAN CORPUSCULAR HGB CONC 29.7 g/dl (32.0-36.5); MEAN CORPUSCULAR VOLUME 86.9 fl (80.0-96.0); PLATELET COUNT, AUTOMATED 209 10^3/uL (150-450); RED BLOOD COUNT 4.06 10^6/uL (4.00-5.40); WHITE BLOOD COUNT 14.5 10^3/uL (4.0-10.0)
[2020-03-01] MEDS: metroNIDAZOLE 500 MG in IV 1 EA IV SCH (06:24)
[2020-03-01 06:49] LABS: BLOOD UREA NITROGEN 9 MG/DL (7-18); CARBON DIOXIDE LEVEL 29 MEQ/L (21-32); CHLORIDE LEVEL 101 MEQ/L (98-107); CREATININE FOR GFR 0.36 MG/DL (0.55-1.30); GLOMERULAR FILTRATION RATE > 60.0 (>39); GLUCOSE, FASTING 89 MG/DL (70-100); POTASSIUM SERUM 3.8 MEQ/L (3.5-5.1); SODIUM LEVEL 137 MEQ/L (136-145)
[2020-03-01] MEDS: HumaLOG INSULIN (NovoLOG) PER UNIT SC SCH ×4 (07:30→21:00)
[2020-03-01] MEDS: VENLAFAXINE **XR** 75MG CAPSULE PO SCH (08:19)
[2020-03-01] MEDS: ENOXAPARIN 40MG/0.4ML SYRINGE (J1650 PER 10MG) SC SCH (08:19)
[2020-03-01] MEDS: ATORVASTATIN 20 MG TAB PO SCH (08:20)
[2020-03-01] MEDS: GABAPENTIN 100 MG CAP PO SCH ×2 (08:20→21:09)
[2020-03-01] MEDS: FUROSEMIDE 20 MG TAB PO SCH (08:20)
[2020-03-01] MEDS: ASPIRIN 81 MG ENTERIC TAB PO SCH (08:20)
[2020-03-01] MEDS: lisinopriL 5 MG TAB PO SCH (08:21)
[2020-03-01 08:26] LABS: MAGNESIUM LEVEL 1.3 MG/DL (1.8-2.4)
--- NOTE | 2020-03-01 10:01 | IPNPDOC ---
Text Note Date of Service The patient was seen on 03/01/20. NOTE Subjective: Patient seen and examined at bedside. No acute overnight events reported. Patient has no new medical complaints this morning. Objective: General: NAD, lying comfortably in bed, elderly, chronically ill appearing HEENT: NC/AT, EOMI Lungs: CTA B/L, diminished right breath sounds Heart: +S1S2, RRR Abd: soft, NT, +BS Ext: no edema A/P: 69 yo F with a hx of lung ca, afib w rvr, Dm2, presented to [facility] ER with progressibely worsening shortness of breath for the past 5 days. Patient was recently admitted for managment of large pleural effusion with questionable empyeme, which was treated with chest tube by Dr. Samuel. Patient received chemo on 02/23/19. Active treatment with keytruda. Presents for worsening shortness of breath with chest pain, found to have recurrence of fluid with suspicion for empyema. #Shortness of breath/Adenocarcinoma of R lung - likely 2/2 large pleural effusion - saturating > 92% - no indication for chest tube - appreciate consultation #R pleural effusion - transition to PO Levaquin day #3 #Afib with RVR - resolved - BP stable - HR 100-110 - per patient, AC was stopped by cardiology (Dr. Dela Cruz). #CHF/post- cardiomyopathy #HTN - resume home meds #DLP #DM2 #COPD #TRINY - non-compliant with CPAP #Neuropathy with essential tremor #Mood disorder: venlafaxine #DVT ppx: lovenox 40 mg SC. Dispo: pending further PT, placement to rehab VS,Manfred, I+O VS, Manfred, I+O Laboratory Tests 03/01/20 05:53 Vital Signs Date Time Temp Pulse Resp B/P (MAP) Pulse Ox O2 Delivery O2 Flow Rate FiO2 03/01/20 08:21 112/58 03/01/20 06:00 98.2 88 18 93 Room Air 02/28/20 08:45 2.0 I&O- Last 24 Hours up to 6 AM 03/01/20 06:00 Intake Total 2210 ml Output Total 500 ml Balance 1710 ml ALICIA SHELDON MD Mar 01, 2020 10:01
[2020-03-01] MEDS: MAG SULF 1GM/100ML (MAG RUN) 1 GM in IV 1 EA IV SCH ×2 (11:31→13:39)
[2020-03-01] MEDS: metroNIDAZOLE (FLAGYL) 500MG TABLET PO SCH ×2 (13:39→21:10)
[2020-03-01 14:00] VITALS: BP 95/51
[2020-03-01] MEDS: METOPROLOL SUCC *XL* 25MG TAB (TopROL *XL*) PO SCH (21:41)
[2020-03-01 22:00] VITALS: BP 117/57
[2020-03-02] MEDS: metroNIDAZOLE (FLAGYL) 500MG TABLET PO SCH (05:44)
[2020-03-02 06:00] VITALS: BP 114/59
[2020-03-02] MEDS ORDERED: LevoFLOXacin 750 MG TABLET PO SCH (06:00)
[2020-03-02 07:48] LABS: HEMATOCRIT 36.3 % (36.0-47.0); MEAN CORPUSCULAR HEMOGLOBIN 26.1 pg (27.0-33.0); MEAN CORPUSCULAR HGB CONC 30.3 g/dl (32.0-36.5); PLATELET COUNT, AUTOMATED 232 10^3/uL (150-450); RED BLOOD COUNT 4.22 10^6/uL (4.00-5.40); WHITE BLOOD COUNT 13.3 10^3/uL (4.0-10.0)
[2020-03-02 08:11] LABS: BLOOD UREA NITROGEN 8 MG/DL (7-18); CALCIUM LEVEL 7.8 MG/DL (8.8-10.2); CARBON DIOXIDE LEVEL 31 MEQ/L (21-32); CHLORIDE LEVEL 101 MEQ/L (98-107); CREATININE FOR GFR 0.36 MG/DL (0.55-1.30); GLOMERULAR FILTRATION RATE > 60.0 (>39); GLUCOSE, FASTING 130 MG/DL (70-100); POTASSIUM SERUM 3.5 MEQ/L (3.5-5.1); SODIUM LEVEL 139 MEQ/L (136-145)
[2020-03-02] MEDS: VENLAFAXINE **XR** 75MG CAPSULE PO SCH (08:22)
[2020-03-02] MEDS: HumaLOG INSULIN (NovoLOG) PER UNIT SC SCH (08:22)
[2020-03-02] MEDS: ATORVASTATIN 20 MG TAB PO SCH (08:23)
[2020-03-02] MEDS: FUROSEMIDE 20 MG TAB PO SCH (08:23)
[2020-03-02] MEDS: ENOXAPARIN 40MG/0.4ML SYRINGE (J1650 PER 10MG) SC SCH (08:23)
[2020-03-02] MEDS: ASPIRIN 81 MG ENTERIC TAB PO SCH (08:23)
[2020-03-02] MEDS: GABAPENTIN 100 MG CAP PO SCH (08:23)
[2020-03-02] MEDS: lisinopriL 5 MG TAB PO SCH ×2 (08:24→09:00)
[2020-03-02 09:00] VITALS: BP 104/64
[2020-03-02] MEDS ORDERED: LEVO750T13 PO (09:04)
--- NOTE | 2020-03-02 15:45 | DS.PDOC ---
Discharge Summary General Date of Admission Feb 28, 2020 at 10:52 Date of Discharge 03/02/20 Discharge Summary PROCEDURES PERFORMED DURING STAY: [None]. DISCHARGE DIAGNOSES: Recently diagnosed Adenocarcinoma of the right lung (Stage IIIa vs IV) Right sided effusion with rare atypical cells Post- cardiomyopathy HTN DLP NIDDM2 COPD / Childhood asthma TRINY (not compliant with CPAP) Mood disorder Neuropathy Essential tremor COMPLICATIONS/CHIEF COMPLAINT: Atrial Fibrillation With Rvr/Chf/Empyema/Pleural. HISTORY OF PRESENT ILLNESS: 69 yo F with a hx of lung ca, afib w rvr, Dm2, presented to [facility] ER with progressibely worsening shortness of breath for the past 5 days. Patient was recently admitted for managment of large pleural effusion with questionable empyeme, which was treated with chest tube by Dr. Samuel. Patient receviwed chemo on 02/23/19. Active treatment with keytruda. Per ED report, Dr. Samuel was consulted, revieved CT chest imaging. Will see patient in AM for likely chest tube placement, low suspicion for empyema. Given empiric meropenem in the ER for suspected empyema, supported by elevated WBC. HOSPITAL COURSE: 69 yo F with a hx of lung ca, afib w rvr, Dm2, presented to [facility] ER with progressibely worsening shortness of breath for the past 5 days. Patient was recently admitted for managment of large pleural effusion with questionable empyeme, which was treated with chest tube by Dr. Samuel. Patient received chemo on 02/23/19. Active treatment with keytruda. Presents for worsening shortness of breath with chest pain, found to have recurrence of fluid with suspicion for empyema. #Shortness of breath/Adenocarcinoma of R lung - likely 2/2 large pleural effusion - saturating > 92% - no indication for chest tube - appreciate consultation #R pleural effusion - PO Levaquin day #Afib with RVR - resolved - BP stable - HR 100-110 - per patient, AC was stopped by cardiology (Dr. Dela Cruz). #CHF/post- cardiomyopathy #HTN - resume home meds #DLP #DM2 #COPD #TRINY - non-compliant with CPAP #Neuropathy with essential tremor #Mood disorder: venlafaxine DISCHARGE MEDICATIONS: Please see below. ALLERGIES: Please see below. PHYSICAL EXAMINATION ON DISCHARGE: VITAL SIGNS: Please see below. General: NAD, lying comfortably in bed, elderly, chronically ill appearing HEENT: NC/AT, EOMI Lungs: CTA B/L, diminished right breath sounds Heart: +S1S2, RRR Abd: soft, NT, +BS Ext: no edema LABORATORY DATA: Please see below. ACTIVITY: [As tolerated]. DISPOSITION: Home Health Service. DISCHARGE INSTRUCTIONS: 1. PCP in 3-5 days 2. oncology as scheduled 03/04/20 DISCHARGE CONDITION: [Stable]. TIME SPENT ON DISCHARGE: 35 minutes. Vital Signs/I&Os Vital Signs Date Time Temp Pulse Resp B/P (MAP) Pulse Ox O2 Delivery O2 Flow Rate FiO2 03/02/20 09:00 104/64 03/02/20 06:00 97.6 86 17 90 Room Air 02/28/20 08:45 2.0 I&O- Last 24 Hours up to 6 AM 03/02/20 06:00 Intake Total 1345 ml Output Total 1400 ml Balance -55 ml Laboratory Data Labs 24H Laboratory Tests 2 03/01/20 16:16: Bedside Glucose (Misc Panel) 133H 03/01/20 20:43: Bedside Glucose (Misc Panel) 118H 03/02/20 07:15: Nucleated Red Blood Cells % (auto) 0.0, Anion Gap 7L, Glomerular Filtration Rate > 60.0, Calcium Level 7.8L 03/02/20 11:17: Bedside Glucose (Misc Panel) 210H CBC/BMP Laboratory Tests 03/02/20 07:15 FSBS Laboratory Tests Test 03/01/20 16:16 03/01/20 20:43 03/02/20 11:17 Range/Units Bedside Glucose (Misc Panel) 133 118 210 83-110 MG/DL Microbiology Microbiology 02/27/20 Blood Culture - Preliminary, Resulted No Growth after 72 hours. All specime... 02/27/20 Blood Culture - Preliminary, Resulted No Growth after 72 hours. All specime... 02/27/20 Respiratory Virus Panel (PCR) (MELISSA) - Final, Complete Discharge Medications Scheduled Aspirin (Aspirin EC) 81 Mg Tablet.dr, 81 MG PO DAILY, (Reported) Atorvastatin Calcium (Atorvastatin Calcium) 40 Mg Tablet, 40 MG PO DAILY, (Reported) Calcium Carbonate/Vitamin D3 (Calcium 600+D Softgel) 1 Each Capsule, 1 CAP PO BID, (Reported) Dulaglutide (Trulicity) 0.75 Mg/0.5 Ml Pen.injctr, 0.75 MG SC QWEEK, (Reported) SUNDAYS Fluticasone/Vilanterol (Breo Ellipta 100-25 Mcg INH) 1 Each Blst.w.dev, 1 PUFF INH DAILY, (Reported) Furosemide (Furosemide) 20 Mg Tablet, 20 MG PO DAILY, (Reported) Gabapentin (Gabapentin) 100 Mg Capsule, 200 MG PO BID, (Reported) Glipizide (Glipizide ER) 5 Mg Tab.er.24, 5 MG PO DAILY, (Reported) Levofloxacin (Levofloxacin) 750 Mg Tablet, 750 MG PO DAILY@06 Lisinopril (Lisinopril) 5 Mg Tablet, 5 MG PO DAILY, (Reported) Metformin HCl (Metformin HCl) 1,000 Mg Tab, 1,000 MG PO BID, (Reported) Metoprolol Succinate (Metoprolol Succinate) 25 Mg Tab.er.24h, 25 MG PO QHS, (Reported) Venlafaxine HCl (Venlafaxine HCl ER) 150 Mg Cap, 150 MG PO DAILY, (Reported) Scheduled PRN Albuterol Sulfate (Proair Respiclick) 90 Mcg Aer.pow.ba, 2 PUFF INH Q4H PRN for SHORTNESS OF BREATH, (Reported) Fluticasone Propionate (Fluticasone Propionate) 50 Mcg/Act Spr, 1 SPRAY NARES QHS PRN for CONGESTION, (Reported) Hydrocodone/Acetaminophen (Hydrocodone-Acetamin 5-325 mg) 1 Each Tablet, 1 TAB PO Q4H PRN for PAIN Ipratropium/Albuterol Sulfate (Combivent Respimat 20-100 Mcg) 4 Gm Mist.inhal, 2 PUFF INH QID PRN for SHORTNESS OF BREATH, (Reported) Magic Mouthwash (First-Mouthwash Blm) 1 Ea Susp, 10 ML PO QID PRN for Dysphagia (Diphenhydramine/maalox/lidocaine 1:1:1) Take with straw by mouth and swallow Allergies Coded Allergies: Penicillins (Verified Allergy, Intermediate, HIVES, 12/26/19) aspirin (Verified Allergy, Intermediate, HIVES WITH NORMAL DOSE FOR SEVERAL DAYS, 12/26/19) nickel (Verified Allergy, Intermediate, rash, swelling, 12/26/19) ALICIA SHELDON MD Mar 02, 2020 15:45
[2020-03-04] MEDS ORDERED: MAGN400C PO (16:04)
[2020-03-04] MEDS ORDERED: K-TA10TA2 PO (16:04)
== END 2020-03-02 11:50 | disposition home health service (06) | DRG 187 ==
LOC: EDBD 14:32 → M ED 14:32 → M ED INP 14:33 → M RR INP 02-28 02:19 → OBSVTOIN 02-28 10:52 → M MSPAV 02-28 14:18
PROVIDERS: ADMIT Family Medicine; ATTEND Internal Medicine
DX: J90 Pleural effusion, not elsewhere classified (principal); C34.01 Malignant neoplasm of right main bronchus; I11.0 Hypertensive heart disease with heart failure; E78.5 Hyperlipidemia, unspecified; E11.40 Type 2 diabetes mellitus with diabetic neuropathy, unspecified; G25.0 Essential tremor; F39 Unspecified mood [affective] disorder; J44.9 Chronic obstructive pulmonary disease, unspecified; Z98.41 Cataract extraction status, right eye; Z98.42 Cataract extraction status, left eye; Z96.651 Presence of right artificial knee joint; Z87.891 Personal history of nicotine dependence; I48.91 Unspecified atrial fibrillation; I50.9 Heart failure, unspecified; G47.33 Obstructive sleep apnea (adult) (pediatric); Z66 Do not resuscitate; Z79.84 Long term (current) use of oral hypoglycemic drugs; Z79.899 Other long term (current) drug therapy; Z79.82 Long term (current) use of aspirin; Z88.0 Allergy status to penicillin; Z88.6 Allergy status to analgesic agent; Z91.048 Other nonmedicinal substance allergy status; Z20.822 Contact with and (suspected) exposure to COVID-19

== ENCOUNTER 2020-03-11 11:03 | Inpatient (IN) | payer MEDICARE ==
[~2020-03-11] VITALS: Ht 157.5 cm; Wt 55.8 kg
[~2020-03-11 11:03] MED LIST changes: +K-TA10TA2 PO; +LEVO750T13 PO; -LISI-542 PO; +LISI-898 PO; +MAGN400C PO
--- OUTSIDE RECORDS SUMMARY | 2020-03-11 11:07 | CCD ---
Author Author [facility] Organization [facility] Address Unknown Phone Unavailable Care Team Providers Care Odd Shoe Examiner Name Role Phone Denise Self Unavailable PROBLEMS Type Condition ICD9-CM Code [id number] Code Onset Dates Condition S tatus SNOMED Code Notes Problem Chronic seasonal allergic rhinitis, unspecified trigger J30.2 Active 758079838 Problem Ataxic gait R26.0 Active 88508140 Problem Essential (primary) hypertension I10 Active 39808790 Well-controlled on the center prole 5 mg daily, no medication changes have been made Problem Mixed hyperlipidemia E78.2 Active 882299790 G enerally controlled on atorvastatin 40 mg daily, only triglycerides are elevated, so we discussed fats in the diet Problem Reactive depression (situational) F32.9 Active 38592258 Problem Obstructive sleep apnea (adult) (pediatric) G47.33 Active 21900068 Problem Situational depression F43.21 Active 50944637 Problem Type 2 diabetes mellitus with diabetic polyneuropathy E11.42 Active 80937794 Significant elevation in hemoglobin A1c, although 7.1 is not particularly alarming. We discussed diet Problem Other chronic pain G89.29 Active 29840780 Problem Gastroesophageal reflux disease K21.9 Active 387426698 Problem Interstitial lung disease J84.9 Active 709085 007 Problem Pain, cancer G89.3 Active 05150097054927 ALLERGIES Allergen (clinical drug ingredient) Drug/Non Drug Allergy do cumented on EMR Reaction Allergy Type Onset Date Status Nickel Hives Non Drug Allergy Active Penicillin (For Allergies Use Only) Hives Drug Allerg y Active aspirin Aspirin([facility] Code:[address]-94) Hives Drug Allergy Active ENCOUNTERS from 1950 to 2020-03-05 Encounter Location Date Provider Diagnosis [facility] [address] [place] [id number] Feb, Denise Rabagojane Reactive depression (situational) F32.9 IMMUNIZATIONS Vaccine Route Administration Date Status Influenza (18 yrs & older) Flublok IM Intramuscular Nov 27, 2019 Administered Influenza (18 yrs & older) Flublok IM Intramuscular Dec 15, 2018 Administered Influenza (18 yrs & older) Flublok IM Intramuscular Dec 22, 2017 Administered Influenza (High Dose 65 & up) IM Intramuscular Nov 18, 2016 A dministered Pneumococcal 0.5mL (Prevnar 13) IM Intramuscular Dec 15, 2018 Administered SOCIAL HISTORY Tobacco Use: Social History Observation Description Date Details (start date - stop date) Former Smoker Sex Assigned At : Social History Observation Description Sex Assigned At Unknown Audit Question Answer Notes Total Score: 2 Interpretation: Alcohol Education Language: Question Answer Notes Languages spoken: Greenlandic Hinduism: Question Answer Notes Hinduism 33 None Domestic Violence: Question Answer Notes Status: Sexual Hx: Question Answer Notes Had sex in the last 12 months (vaginal, oral, or anal)? No Have you ever had an STD? No Drug and Alcohol Question Answer Notes Total Score: 0 Interpretation: No problems reported Alcohol Screening: Question Answer Notes Did you have a drink containing alcohol in the past year? Ye s Points 1 Interpretation Negative How often did you have six or more drinks on one occas ion in the past year? Never (0 points) How many drinks did you have on a typica l day when you were drinking in the past year? 1 or 2 (0 points) How often did you have a drink containing alcohol in t he past year? Monthly or less (1 point) Tobacco Use: Question Answer Notes Are you a: former smoker How long has it been since you last smoked? > 10 years REASON FOR REFERRAL No Information VITAL SIGNS No information MEDICATIONS Medication SIG (Take, Route, Frequency, Duration) Notes Start Da te End Date Status Hydrocodone-Acetaminophen 5-325 MG 1 tablet as needed Orally bid as needed for severe pain for 7 day(s) Jan, Active CPAP Machine as directed Wear nasal mask Nightly. DX: TRINY, G47.33 for 99 months Sep, Active Meclizine HCl 25 mg 1 tablet as needed Orally twice a day Active OneTouch Verio 0 as directed DX: E11.42 twice daily Active Gabapentin 100 MG 1 capsule Orally three times daily Active Triamcinolone Acetonide 0.1 % 1 application to the cor ner of your mouth Externally Twice a day Active One Touch Delica 33 gauge as directed On side of finge r Twice daily. DX: Z79.4 for 30 Days Active Magnesium Oxide 400 MG 1 tablet with food Orally Once a day for 30 da y(s) Active Pen [place] 31G X 6 MM as directed subcutaneously W fernandophil with trulicity. DX: E11.42 Aug, Active Trulicity 0.75 MG/0.5ML as directed Subcutaneous weekly for 336 Active Albuterol Sulfate 108 (90 Base) MCG/ACT 1 puff as need ed Inhalation every 8 hrs as needed for 66 Active Lisinopril 5 MG 1 tablet Orally Once a day for 90 day(s) Active Fluticasone Propionate 50 MCG/ACT 1 spray in each nost ril Nasally Once a day for 30 day(s) Dec, Active Clopidogrel Bisulfate 75 1 tablet Orally Once a day for 30 Days Active GlipiZIDE ER 5 MG 1 tablet Orally Once a day for 90 day(s) Active Glucosamine HCl-MSM 750-750 MG 1 tablet Orally Twice a day Active PredniSONE 20 MG 1 tablet Orally 2 tab for 4 days 1 tab for 6 days for 10 day(s) Nov, Active Metformin HCl 1000 1 tablet with a meal orally twice daily Active Atorvastatin Calcium 40 1 tablet Orally Once a day Active Calcium + D3 600-200 MG-UNIT 1 tablet with a meal Orally Twice a day Active Vitamin D-3 1000 UNIT 2 capsules Orally Once a day Active Venlafaxine HCl ER 150 MG 1 capsule with food Orally Once a day for 90 day(s) Active Ketoconazole 2 % as directed Externally weekly for 30 days Aug, Active Aspirin 81 MG 1 tablet Orally Once a day for 90 day(s) Active PROCEDURES No Information RESULTS No Results REASON FOR VISIT depression MEDICAL (GENERAL) HISTORY Type Description Date Medical History HTN Medical History hyperlipidemia Medical History T2DM with mild proteinuria Medical History TRINY on CPAP Medical History Depression Medical History Shingrix at [facility] Surgical History 1984 Surgical History Right total knee, Dr. Karthikeyan Walton 201 5 Surgical History Bilateral cataract surgery-Dr. De Jesus 05/2018 Hospitalization History Diabetes 2015 Goals Section No Information Health Concerns No Information MEDICAL EQUIPMENT No Information MENTAL STATUS No Information FUNCTIONAL STATUS No Information ASSESSMENTS Encounter Date Diagnosis Assessment Notes Treatment Notes Treatm ent Clinical Notes Feb, Reactive depression (situational) (ICD-10 - F32. 9) Discussed patient sxs over Telephone call. was present on speaker call. stress/depression secondary to procedures. hospital admission, treatments. open for zoom meet counselling denies SI/HI supportive [facility] health nurse visit/f/u established. Discussed crisis line in emergency situation. understands/agrees Spoke with Luke about zoom meeting. PLAN OF TREATMENT Medication Medication Name Sig Start Date Stop Date Lisinopril 5 MG 1 tablet Orally Once a day for 90 day(s) Venlafaxine HCl ER 150 MG 1 capsule with food Orally Once a day for 90 day(s) Albuterol Sulfate 108 (90 Base) MCG/ACT 1 puff as need ed Inhalation every 8 hrs as needed for 66 Trulicity 0.75 MG/0.5ML as directed Subcutaneous weekly for 336 Hydrocodone-Acetaminophen 5-325 MG 1 tablet as needed Orally bid as needed for severe pain for 7 day(s) Jan, Magnesium Oxide 400 MG 1 tablet with food Orally Once a day for 30 day(s) Treatment Notes Assessment Notes Clinical Notes Reactive depression (situational) Discus sed patient sxs over Telephone call. was present on speaker call.stress/depression secondary to procedures. hospital admission, treatments. open for zoom meet counsellingdenies SI/HIsuppor tive [facility] nurse visit/f/u established.Discussed crisis line in emergency situation.understands/agreesSpoke with Luke about zoom meeting. Next Appt Details Provider Name:Denise Self, 03-29 09:30:00 AM, [address] [place], [address], Insurance Providers Payer Name Payer Address Payer Phone Insured Name Patient Relati onship to Insured Coverage Start Date Coverage End Date MEDICARE COMPLETE [employer] [address] [address] [facility] [phone] OPAL VALENZUELA
--- OUTSIDE RECORDS SUMMARY | 2020-03-11 11:07 | CCD ---
Author Author [facility] Organization [facility] Address Unknown Phone Unavailable Care Team Providers Care Security System Administrator Name Role Phone Denise Self Unavailable PROBLEMS Type Condition ICD9-CM Code [id number] Code Onset Dates Condition S tatus SNOMED Code Notes Problem Type 2 diabetes mellitus with diabetic polyneuropathy E11.42 Active 95604421 Significant elevation in hemoglobin A1c, although 7.1 is not particularly alarming. We discussed diet Problem Obstructive sleep apnea (adult) (pediatric) G47.33 Active 60650412 Problem Chronic seasonal allergic rhinitis, unspecified trigger J30.2 Active 646729899 Problem Gastroesophageal reflux disease K21.9 Active 140497530 Problem Mixed hyperlipidemia E78.2 Active 946015456 G enerally controlled on atorvastatin 40 mg daily, only triglycerides are elevated, so we discussed fats in the diet Problem Pain, cancer G89.3 Active 51790004727833 Problem Ataxic gait R26.0 Active 18537832 Problem Essential (primary) hypertension I10 Active 28489554 Well-controlled on the center prole 5 mg daily, no medication changes have been made Problem Other chronic pain G89.29 Active 13839878 Problem Interstitial lung disease J84.9 Active 344639 007 ALLERGIES Allergen (clinical drug ingredient) Drug/Non Drug Allergy do cumented on EMR Reaction Allergy Type Onset Date Status Nickel Hives Non Drug Allergy Active Penicillin (For Allergies Use Only) Hives Drug Allerg y Active aspirin Aspirin([facility] Code:[address]-53) Hives Drug Allergy Active ENCOUNTERS from 1950 to 2020-02-28 Encounter Location Date Provider Diagnosis [facility] [address] [place] [address] Feb, Denise Rabagojane IMMUNIZATIONS Vaccine Route Administration Date Status Influenza [...] Education Language: Question Answer Notes Languages spoken: Greek Baptist: Question Answer Notes Baptist 33 None Domestic Violence: Question Answer Notes [...] 1 capsule Orally three times daily Active Clopidogrel Bisulfate 75 1 tablet Orally Once a day for 30 Days Active One Touch Delica 33 gauge as directed On side of finge r Twice daily. DX: Z79.4 for 30 Days Active GlipiZIDE ER 5 MG 1 tablet Orally Once a day for 90 day(s) Active Pen [place] 31G X 6 MM as directed subcutaneously W jamal with trulicity. DX: E11.42 Aug, Active Trulicity 0.75 MG/0.5ML as directed Subcutaneous weekly for 336 Active Albuterol Sulfate 108 (90 Base) MCG/ACT 1 puff as need ed Inhalation every 8 hrs as needed for 66 Active Lisinopril 5 MG 1 tablet Orally Once a day for 90 day(s) Active Magnesium Oxide 400 MG 1 tablet as needed Orally Once a day for 30 da y(s) Active Fluticasone Propionate 50 MCG/ACT 1 spray in each nost ril Nasally Once a day for 30 day(s) Dec, Active Ketoconazole 2 % as directed Externally weekly for 30 days Aug, Active Glucosamine HCl-MSM 750-750 MG 1 tablet Orally Twice a day Active PredniSONE 20 MG 1 tablet Orally 2 tab for 4 days 1 tab for 6 days for 10 day(s) Nov, Active Triamcinolone Acetonide 0.1 % 1 application to the cor ner of your mouth Externally Twice a day Active Atorvastatin Calcium 40 1 tablet Orally Once a day Active Calcium + D3 600-200 MG-UNIT 1 tablet with a meal Orally Twice a day Active Vitamin D-3 1000 UNIT 2 capsules Orally Once a day Active Venlafaxine HCl ER 150 MG 1 capsule with food Orally Once a day for 90 day(s) Active Metformin HCl 1000 1 tablet with a meal orally twice daily Active Aspirin 81 MG 1 tablet Orally Once a day for 90 day(s) Active PROCEDURES No Information RESULTS No Results REASON FOR VISIT SOB, shaky, headache, elevated HR MEDICAL (GENERAL) HISTORY Type Description Date Medical History HTN Medical History hyperlipidemia Medical History T2DM with mild proteinuria Medical History TRINY on CPAP Medical History Depression Medical History Shingrix at [facility] Surgical History 1984 Surgical History Right total knee, Dr. Karthikeyan Walton 201 5 Surgical History Bilateral cataract surgery-Dr. De Jesus 05/2018 Hospitalization History Diabetes 2015 Goals Section No Information Health Concerns No Information MEDICAL EQUIPMENT No Information MENTAL STATUS No Information FUNCTIONAL STATUS No Information ASSESSMENTS No Information PLAN OF TREATMENT Medication Medication Name Sig [...] for severe pain for 7 day(s) Jan, Next Appt Details Provider Name:Denise Self, 03-29 09:30:00 AM, [address] [place], [phone], Insurance Providers Payer Name Payer Address Payer Phone Insured Name Patient Relati onship to Insured Coverage Start Date Coverage End Date MEDICARE COMPLETE [facility] [address] [address] [facility] [phone] OPAL VALENZUELA self
--- OUTSIDE RECORDS SUMMARY | 2020-03-11 11:07 | CCD ---
Author Author [facility] Organization [facility] Address Unknown Phone Unavailable Care Team Providers Care Reel System Operator Name Role Phone Denise Self Unavailable PROBLEMS Type Condition ICD9-CM Code [id number] Code Onset Dates Condition S tatus SNOMED Code Notes Problem Type 2 diabetes mellitus with diabetic polyneuropathy E11.42 Active 63254943 Significant elevation in hemoglobin A1c, although 7.1 is not particularly alarming. We discussed diet Problem Obstructive sleep apnea (adult) (pediatric) G47.33 Active 20514931 Problem Chronic seasonal allergic rhinitis, unspecified trigger J30.2 Active 760883922 Problem Gastroesophageal reflux disease K21.9 Active 122217664 Problem Mixed hyperlipidemia E78.2 Active 076935904 G enerally controlled on atorvastatin 40 mg daily, only triglycerides are elevated, so we discussed fats in the diet Problem Pain, cancer G89.3 Active 86764458418869 Problem Ataxic gait R26.0 Active 79911673 Problem Essential (primary) hypertension I10 Active 24960490 Well-controlled on the center prole 5 mg daily, no medication changes have been made Problem Other chronic pain G89.29 Active 99779352 Problem Interstitial lung disease J84.9 Active 979296 007 ALLERGIES Allergen (clinical drug ingredient) Drug/Non Drug Allergy do cumented on EMR Reaction Allergy Type Onset Date Status Nickel Hives Non Drug Allergy Active Penicillin (For Allergies Use Only) Hives Drug Allerg y Active aspirin Aspirin([facility] Code:[address]-11) Hives Drug Allergy Active ENCOUNTERS from 1950 to 2020-03-05 Encounter Location Date Provider Diagnosis [facility] [address] [place] [address] Feb, Denise Self IMMUNIZATIONS Vaccine Route Administration Date Status Influenza [...] Education Language: Question Answer Notes Languages spoken: Uzbek Mormon: Question Answer Notes Mormon 33 None Domestic Violence: Question Answer Notes [...] a day for 90 day(s) Active Pen [place] 31G X 6 MM as directed subcutaneously [...] Information RESULTS No Results REASON FOR VISIT lasix dose MEDICAL (GENERAL) HISTORY Type Description Date Medical History HTN Medical History hyperlipidemia Medical History T2DM with mild proteinuria Medical History TRINY on CPAP Medical History Depression Medical History Shingrix at [facility] Surgical History 1984 Surgical History Right [...] day(s) Jan, Next Appt Details Provider Name:Denise Rabagojane, 03-29 09:30:00 AM, [address] [place], [address], Insurance Providers Payer Name Payer Address Payer Phone Insured Name Patient Relati onship to Insured Coverage Start Date Coverage End Date MEDICARE COMPLETE [facility] [address] [address] [facility] [id number] OPAL VALENZUELA self
--- OUTSIDE RECORDS SUMMARY | 2020-03-11 11:07 | CCD ---
Author Author [facility] Organization [facility] Address Unknown Phone Unavailable Care Team Providers Care Distribution Estimator Name Role Phone Denise Self Unavailable PROBLEMS Type Condition ICD9-CM Code [id number] Code Onset Dates Condition S tatus SNOMED Code Notes Problem Chronic seasonal allergic rhinitis, unspecified trigger J30.2 Active 623136925 Problem Ataxic gait R26.0 Active 89552242 Problem Essential (primary) hypertension I10 Active 36046040 Well-controlled on the center prole 5 mg daily, no medication changes have been made Problem Mixed hyperlipidemia E78.2 Active 685805651 G enerally controlled on atorvastatin 40 mg daily, only triglycerides are elevated, so we discussed fats in the diet Problem Reactive depression (situational) F32.9 Active 60559304 Problem Obstructive sleep apnea (adult) (pediatric) G47.33 Active 12310412 Problem Situational depression F43.21 Active 49701346 Problem Type 2 diabetes mellitus with diabetic polyneuropathy E11.42 Active 52019949 Significant elevation in hemoglobin A1c, although 7.1 is not particularly alarming. We discussed diet Problem Other chronic pain G89.29 Active 59686622 Problem Gastroesophageal reflux disease K21.9 Active 585386465 Problem Interstitial lung disease J84.9 Active 794038 007 Problem Pain, cancer G89.3 Active 32567665375570 ALLERGIES Allergen (clinical drug ingredient) Drug/Non Drug Allergy do cumented on EMR Reaction Allergy Type Onset Date Status Nickel Hives Non Drug Allergy Active Penicillin (For Allergies Use Only) Hives Drug Allerg y Active aspirin Aspirin([facility] Code:[address]-13) Hives Drug Allergy Active ENCOUNTERS from 1950 to 2020-03-05 Encounter Location Date Provider Diagnosis [facility] [address] [place] [id number] Feb, Denise Rabagojane IMMUNIZATIONS Vaccine Route Administration [...] Education Language: Question Answer Notes Languages spoken: Maltese Jewish: Question Answer Notes Jewish 33 None Domestic Violence: Question Answer Notes [...] day for 30 da y(s) Active Pen [place] 31G X 6 MM as directed subcutaneously W juliennecaroline with trulicity. DX: E11.42 Aug, Active Trulicity [...] Information RESULTS No Results REASON FOR VISIT mag oxide MEDICAL (GENERAL) HISTORY Type Description Date Medical History HTN Medical History hyperlipidemia Medical History T2DM with mild proteinuria Medical History TRINY on CPAP Medical History Depression Medical History Shingrix at [facility] Surgical History 1984 Surgical History Right total [...] Orally Once a day for 30 day(s) Next Appt Details Provider Name:Denise Rabagojane, 03-29 09:30:00 AM, [address] [place], [address], Insurance Providers Payer Name Payer Address Payer Phone Insured Name Patient Relati onship to Insured Coverage Start Date Coverage End Date MEDICARE COMPLETE [facility] [address] [address] [facility] [id number] OPAL VALENZUELA self
--- OUTSIDE RECORDS SUMMARY | 2020-03-11 11:08 | CCD ---
Author Author [facility] Organization [facility] Address Unknown Phone Unavailable Care Team Providers Care Disintegrator Feeder Name Role Phone Jasiel Dela Cruz MD Unavailable Unavailable Jasiel Dela Cruz MD Unavailable Unavailable Jasiel Dela Cruz MD Unavailable Unavailable Jasiel Dela Cruz MD Unavailable Unavailable Jasiel Dela Cruz MD Unavailable Unavailable Jasiel Dela Cruz MD Unavailable Unavailable Jasiel Dela Cruz MD Unavailable Unavailable Jasiel Dela Cruz MD Unavailable Unavailable Jasiel Dela Cruz MD Unavailable Unavailable Jasiel Dela Cruz MD Unavailable Unavailable Jasiel Dela Cruz MD Unavailable Unavailable Jasiel Dela Cruz MD Unavailable Unavailable Jasiel Dela Cruz MD Unavailable Unavailable Jasiel Dela Cruz MD Unavailable Unavailable Jasiel Dela Cruz MD Unavailable Unavailable Jasiel Dela Cruz MD Unavailable Unavailable Jasiel Dela Cruz MD Unavailable Unavailable Jasiel Dela Cruz MD Unavailable Unavailable Jasiel Dela Cruz MD Unavailable Unavailable Jasiel Dela Cruz MD Unavailable Unavailable Jasiel Dela Cruz MD Unavailable Unavailable Jasiel Dela Cruz MD Unavailable Unavailable Jasiel Dela Cruz MD Unavailable Unavailable Jasiel Dela Cruz MD Unavailable Unavailable Jasiel Dela Cruz MD Unavailable Unavailable Jasiel Dela Cruz MD Unavailable Unavailable Jasiel Dela Cruz MD Unavailable Unavailable Jasiel Dela Cruz MD Unavailable Unavailable Jasiel Dela Cruz MD Unavailable Unavailable Jasiel Dela Cruz MD Unavailable Unavailable Jasiel Dela Cruz MD Unavailable Unavailable Jasiel Dela Cruz MD Unavailable Unavailable Jasiel Dela Cruz MD Unavailable Unavailable Jasiel Dela Cruz MD Unavailable Unavailable Jasiel Dela Cruz MD Unavailable Unavailable Jasiel Dela Cruz MD Unavailable Unavailable Jasiel Dela Cruz MD Unavailable Unavailable Jasiel Dela Cruz MD Unavailable Unavailable Jasiel Dela Cruz MD Unavailable Unavailable Jasiel Dela Cruz MD Unavailable Unavailable Jasiel Dela Cruz MD Unavailable Unavailable Jasiel Dela Cruz MD Unavailable Unavailable Jasiel Dela Cruz MD Unavailable Unavailable Jasiel Dela Cruz MD Unavailable Unavailable Jasiel Dela Cruz MD Unavailable Unavailable Jasiel Dela Cruz MD Unavailable Unavailable Jasiel Dela Cruz MD Unavailable Unavailable Jasiel Dela Cruz MD Unavailable Unavailable Jasiel Dela Cruz MD Unavailable Unavailable Jasiel Dela Cruz MD Unavailable Unavailable Jasiel Dela Cruz MD Unavailable Unavailable Jasiel Dela Cruz MD Unavailable Unavailable Jasiel Dela Cruz MD Unavailable Unavailable Jasiel Dela Cruz MD Unavailable Unavailable Jasiel Dela Cruz MD Unavailable Unavailable Jasiel Dela Cruz MD Unavailable Unavailable Jasiel Dela Cruz MD Unavailable Unavailable Trickey, J Carmen PA Unavailable Unavailable Trickey, J Carmen PA Unavailable Unavailable Trickey, J Carmen PA Unavailable Unavailable Trickey, J Carmen PA Unavailable Unavailable Trickey, J Carmen PA Unavailable Unavailable Trickey, J Carmen PA Unavailable Unavailable Trickey, J Carmen PA Unavailable Unavailable Trickey, J Carmen PA Unavailable Unavailable Trickey, J Carmen PA Unavailable Unavailable Trickey, J Carmen PA Unavailable Unavailable Trickey, J Carmen PA Unavailable Unavailable Trickey, J Carmen PA Unavailable Unavailable Trickey, J Carmen PA Unavailable Unavailable Trickey, J Carmen PA Unavailable Unavailable Trickey, J Carmen PA Unavailable Unavailable Trickey, J Carmen PA Unavailable Unavailable Trickey, J Carmen PA Unavailable Unavailable Trickey, J Carmen PA Unavailable Unavailable Trickey, J Carmen PA Unavailable Unavailable Trickey, J Carmen PA Unavailable Unavailable Trickey, J Carmen PA Unavailable Unavailable Trickey, J Carmen PA Unavailable Unavailable Trickey, J Carmen PA Unavailable Unavailable Trickey, J Carmen PA Unavailable Unavailable Trickey, J Carmen PA Unavailable Unavailable Trickey, J Carmen PA Unavailable Unavailable Trickey, J Carmen PA Unavailable Unavailable Trickey, J Carmen PA Unavailable Unavailable Trickey, J Carmen PA Unavailable Unavailable Trickey, J Carmen PA Unavailable Unavailable Trickey, J Carmen PA Unavailable Unavailable Trickey, J Carmen PA Unavailable Unavailable Trickey, J Carmen PA Unavailable Unavailable Trickey, J Carmen PA Unavailable Unavailable Trickey, J Carmen PA Unavailable Unavailable Trickey, J Carmen PA Unavailable Unavailable Trickey, J Carmen PA Unavailable Unavailable Trickey, J Carmen PA Unavailable Unavailable Trickey, J Carmen PA Unavailable Unavailable Trickey, J Carmen PA Unavailable Unavailable Trickey, J Carmen PA Unavailable Unavailable Trickey, J Carmen PA Unavailable Unavailable Trickey, J Carmen PA Unavailable Unavailable Trickey, J Carmen PA Unavailable Unavailable Trickey, J Carmen PA Unavailable Unavailable Trickey, J Carmen PA Unavailable Unavailable Trickey, J Carmen PA Unavailable Unavailable Trickey, J Carmen PA Unavailable Unavailable Trickey, J Carmen PA Unavailable Unavailable Trickey, J Carmen PA Unavailable Unavailable Trickey, J Carmen PA Unavailable Unavailable Trickey, J Carmen PA Unavailable Unavailable Briana Hughes MD Unavailable Unavailable Briana Hughes MD Unavailable Unavailable Briana Hughes MD Unavailable Unavailable Briana Hughes MD Unavailable Unavailable Briana Hughes MD Unavailable Unavailable Briana Hughes MD Unavailable Unavailable Briana Hughes MD Unavailable Unavailable Briana Hughes MD Unavailable Unavailable Briana Hughes MD Unavailable Unavailable Briana Hughes MD Unavailable Unavailable Briana Hughes MD Unavailable Unavailable Briana Hughes MD Unavailable Unavailable Briana Hughes MD Unavailable Unavailable Briana Hughes MD Unavailable Unavailable Briana Hughes MD Unavailable Unavailable Briana Hughes MD Unavailable Unavailable Briana Hughes MD Unavailable Unavailable Briana Hughes MD Unavailable Unavailable Briana Hughes MD Unavailable Unavailable Briana Hughes MD Unavailable Unavailable Briana Hughes MD Unavailable Unavailable Briana Hughes MD Unavailable Unavailable Briana Hughes MD Unavailable Unavailable Briana Hughes MD Unavailable Unavailable Briana Hughes MD Unavailable Unavailable Briana Hughes MD Unavailable Unavailable Briana Hughes MD Unavailable Unavailable Briana Hughes MD Unavailable Unavailable Briana Hughes MD Unavailable Unavailable Briana Hughes MD Unavailable Unavailable Briana Hughes MD Unavailable Unavailable Briana Hughes MD Unavailable Unavailable Briana Hughes MD Unavailable Unavailable Matt, Briana WILDER Unavailable Unavailable Matt, Briana WILDER Unavailable Unavailable Matt, Briana WILDER Unavailable Unavailable Matt, Briana WILDER Unavailable Unavailable Matt, Briana WILDER Unavailable Unavailable Matt, Briana WILDER Unavailable Unavailable Matt, Briana WILDER Unavailable Unavailable Matt, Briana WILDER Unavailable Unavailable Matt, Briana WILDER Unavailable Unavailable Matt, Briana WILDER Unavailable Unavailable Matt, Briana WILDER Unavailable Unavailable Matt, Briana WILDER Unavailable Unavailable Matt, Briana WILDER Unavailable Unavailable Nicole DE JESUS ALICE DO Unavailable [phone] Nicole DE JESUS ALICE DO Unavailable [phone] Nicole DE JESUS ALICE DO Unavailable [phone] Nicole DE JESUS ALICE DO Unavailable [phone] Nicole DE JESUS ALICE DO Unavailable [phone] Nicole DE JESUS ALICE DO Unavailable [phone] Nicole DE JESUS ALICE DO Unavailable [phone] Nicole DE JESUS ALICE DO Unavailable [phone] Nicole DE JESUS ALICE DO Unavailable [phone] Nicole DE JESUS ALICE DO Unavailable [phone] Nicole DE JESUS ALICE DO Unavailable [phone] Nicole DE JESUS ALICE DO Unavailable [phone] Nicole DE JESUS ALICE DO Unavailable [phone] Nicole DE JESUS ALICE DO Unavailable [phone] iNcole DE JESUS ALICE DO Unavailable [phone] Nicole DE JESUS ALICE DO Unavailable [phone] Nicole DE JESUS ALICE DO Unavailable [phone] Nicole DE JESUS ALICE DO Unavailable [phone] Nicole DE JESUS ALICE DO Unavailable [phone] Nicole DE JESUS ALICE DO Unavailable [phone] Nicole DE JESUS ALICE DO Unavailable [phone] Re-disclosure Warning The records that you are about to access may contain information from federally-assisted alcohol or drug abuse programs. If such information is present, then the following federally mandated warning applies: This information has been disclosed to you from records protected by federal confidentiality rules (42 CFR part 2). The federal rules prohibit you from making any further disclosure of this information unless further disclosure is expressly permitted by the written consent of the person to whom it pertains or as otherwise permitted by 42 CFR part 2. A general authorization for the release of medical or other information is NOT sufficient for this purpose. The Federal rules restrict any use of the information to criminally investigate or prosecute any alcohol or drug abuse patient.The records that you are about to access may contain highly sensitive health information, the redisclosure of which is protected by Article 27-F of the [facility] Public Health law. If you continue you may have access to information: Regarding HIV / AIDS; Provided by facilities licensed or operated by the [facility] Office of Mental Health; or Provided by the [facility] Office for People With Developmental Disabilities. If such information is present, then the following [facility] mandated warning applies: This information has been disclosed to you from confidential records which are protected by state law. State law prohibits you from making any further disclosure of this information without the specific written consent of the person to whom it pertains, or as otherwise permitted by law. Any unauthorized further disclosure in violation of state law may result in a fine or correction sentence or both. A general authorization for the release of medical or other information is NOT sufficient authorization for further disc losure. Allergies and Adverse Reactions Type Description Substance Reaction Status Data Source(s ) aspirin Aspirin Aspirin Hives Active eCW1 ([facility]) Nickel Nickel Nickel Hives Active eCW1 ([facility]) Encounters Encounter Providers Location Date Indications Data Source(s ) [place] [address] [facility] [address] 03/05/2020 12:00:00 AM EST eCW1 ([facility]) [place] [address] [facility] [address] 03/04/2020 12:00:00 AM EST eCW1 ([facility]) Unknown [address] [facility] [address] 03/04/2020 12:00:00 AM EST [facility] [place] [address] [facility] [address] 02/27/2020 12:00:00 AM EST [facility]CW1 [facility]) Unknown [address] [facility] [address] 02/21/2020 12:00:00 AM EST [facility]CW1 ([facility]) Unknown [address] [facility] [address] 02/21/2020 12:00:00 AM EST [facility]CW1 ([facility]) Unknown [address] [facility] [address] 02/14/2020 12:00:00 AM EST eCW1 ([facility]) Unknown [address] [facility] [address] 02/02/2020 12:00:00 AM EST eCW1 ([facility]) Outpatient Referrer: Jasiel Dela Cruz MD [email or web address] 04/2019 12:00:00 AM EST - 01/25/2020 08:49:11 AM EST [facility] [place] [address] [facility] [address] 01/24/2020 12:00:00 AM EST eCW1 ([facility]) Outpatient Attender: Briana Hawk/Víctor/Garrison/Chandler ndcarlos 01/11/2020 01:30:00 PM EST [facility] ([facility]) Outpatient Attender: Briana Hawk/Víctor/Garrison/Chandler ndcarols 01/03/2020 12:30:00 PM EST [facility] ([facility]) Unknown [address] [facility] [address] 01/02/2020 12:00:00 AM EST [facility]CW[facility]) Outpatient Admitter: Briana Hughes MDReferrer: Briana palafox MD 12/27/2019 12:00:00 AM EST Malignant neoplasm of unspecified part o f unspecified bronchus or lung [facility] Malignant neoplasm of unspecified part o f unspecified bronchus or lung Unknown [address] [facility] [address] 12/26/2019 12:00:00 AM EST eCW1 ([facility]) Unknown [address] [facility] [place] [address] 12/22/2019 12:00:00 AM EDT eCW1 ([facility]) Unknown [address] [facility] [place] [address] 12/20/2019 12:00:00 AM EDT eCW1 ([facility]) Unknown [address] [facility] [place] [address] 12/15/2019 12:00:00 AM EDT eCW1 ([facility]) Outpatient Attender: Jasiel Dela Cruz MD [email or web address] 11/23 12:00:00 AM EDT - 12/13/2019 11:05:43 AM EDT [facility] Outpatient Attender: Briana Hawk/Víctor/Garrison/Chandler browne 12/07/2019 09:30:00 AM EDT MEDENT ([facility]) Office Visit, Est Pt., Level 3 PC [address] [place] [address] 12/06/2019 12:00:00 AM EDT eCW1 ([facility]) Unknown [address] [facility] [address] 12/06/2019 12:00:00 AM EDT eCW1 ([facility]) Office Visit, Est Pt., Level 4 PC [address] [place] [address] 11/27/2019 12:00:00 AM EDT eCW1 ([facility]) Unknown [address] [facility] [address] 11/23/2019 12:00:00 AM EDT eCW1 ([facility]) Outpatient Attender: Carmen ALVARENGA [facility] 10/04/2019 08:15:00 AM EDT MED[facility] ([facility] ) [place] [address] [facility] [address] 08/04/2019 12:00:00 AM EDT eCW1 ([facility]) Outpatient<td ID="encounterTypeDescripti onID0">1 Year Follow-Up</td><td>Alice De Jesus DO</td><td>Bebeto Valdivia MD [facility]</td><td>07/28/2019</td><td><content ID="encounterDiagnosisID0-0">Diabetes Mellitus Type 2 Without Complication</content>, <content ID="encounterDiagnosisID0-1">Dry Eye Syndrome</content>, <content ID="encounterDiagnosisID0-2">Pseudophakia</content>, <content ID="encounterDiagnosisID0-3">Assessment of Taking Medication For Diabetes Long- term Use of Oral Hypoglycemics</content>, <content ID="encounterDiagnosisID0- 4">Vitreous Disorders Degeneration</content></td> Attender: ALICE Vazquez MD [facility] 07/28/2019 07:20:00 AM EDT - 07/28/2019 07:47:00 AM EDT PseudophakiaVitreous Disorders Degenerat ionAssessment of Taking Medication For Diabetes Long-term Use of Oral HypoglycemicsDry Eye SyndromeDiabetes Mellitus Type 2 Without Complication [facility] (Bebeto Mcfadden MD [facility]) Pseudophakia Vitreous Disorders Degeneration Assessment of Taking Medication For Diab etes Long-term Use of Oral Hypoglycemics Dry Eye Syndrome Diabetes Mellitus Type 2 Without Complic ation Outpatient [address] [facility] [address] 07/20/2019 12:00:00 AM EDT eCW1 ([facility]) [facility] [place] [address] [facility] [address] 07/18/2019 12:00:00 AM EDT eCW1 ([facility]) [address] [address] 07/10/2019 12:00:00 AM EDT eCW1 ([facility]) [address] [address] 07/10/2019 12:00:00 AM EDT eCW1 ([facility]) [address] [address] 07/10/2019 12:00:00 AM EDT eCW1 ([facility]) Outpatient Attender: Carmen ALVARENGA [facility] n 06/27/2019 09:15:00 AM EDT MEDENT ([facility], ) [address] [address] 05/18/2019 12:00:00 AM EDT eCW1 ([facility]) Outpatient 05/09/2019 11:06:00 AM EDT [facility] [address] [address] 03/24/2019 12:00:00 AM EST eCW1 ([facility]) Outpatient Attender: Carmen ALVARENGA [facility] n 03/23/2019 10:00:00 AM EST MEDENT ([facility], ) [address] [address] 02/23/2019 12:00:00 AM EST eCW1 ([facility]) [address] [address] 02/07/2019 12:00:00 AM EST eCW1 ([facility]) Outpatient Attender: Carmen ALVARENGA [facility] n 02/03/2019 07:45:00 AM EST MEDENT ([facility]) Immunizations Vaccine Date Status Description Data Source(s) New in 2011. IIV4 11/29/2019 02:34:00 PM EDT completed MEDENT ([facility]) influenza, recombinant, quadrIvalent,injectable, prese rvative free 11/27/2019 01:05:00 PM EDT completed eCW1 ([facility]) influenza, recombinant, quadrIvalent,injectable, prese rvative free 11/27/2019 01:05:00 PM EDT completed eCW1 ([facility]) influenza, recombinant, quadrIvalent,injectable, prese rvative free 11/27/2019 01:05:00 PM EDT completed eCW1 ([facility]) influenza, recombinant, quadrIvalent,injectable, prese rvative free 11/27/2019 01:05:00 PM EDT completed eCW1 ([facility]) influenza, recombinant, quadrIvalent,injectable, prese rvative free 11/27/2019 01:05:00 PM EDT completed eCW1 ([facility]) influenza, recombinant, quadrIvalent,injectable, prese rvative free 11/27/2019 01:05:00 PM EDT completed eCW1 ([facility]) influenza, recombinant, quadrIvalent,injectable, prese rvative free 11/27/2019 01:05:00 PM EDT completed eCW1 ([facility]) influenza, recombinant, quadrIvalent,injectable, prese rvative free 11/27/2019 01:05:00 PM EDT completed eCW1 ([facility]) influenza, recombinant, quadrIvalent,injectable, prese rvative free 11/27/2019 01:05:00 PM EDT completed eCW1 ([facility]) influenza, recombinant, quadrIvalent,injectable, prese rvative free 11/27/2019 01:05:00 PM EDT completed eCW1 ([facility]) influenza, recombinant, quadrIvalent,injectable, prese rvative free 11/27/2019 01:05:00 PM EDT completed eCW1 ([facility]) influenza, recombinant, quadrIvalent,injectable, prese rvative free 11/27/2019 01:05:00 PM EDT completed eCW1 ([facility]) influenza, recombinant, quadrIvalent,injectable, prese rvative free 11/27/2019 01:05:00 PM EDT completed eCW1 ([facility]) influenza, recombinant, quadrIvalent,injectable, prese rvative free 11/27/2019 01:05:00 PM EDT completed eCW1 ([facility]) influenza, recombinant, quadrIvalent,injectable, prese rvative free 11/27/2019 01:05:00 PM EDT completed eCW1 ([facility]) influenza, recombinant, quadrIvalent,injectable, prese rvative free 11/27/2019 01:05:00 PM EDT completed eCW1 ([facility]) influenza, recombinant, quadrIvalent,injectable, prese rvative free 11/27/2019 01:05:00 PM EDT completed eCW1 ([facility]) Medications Medication Brand Name Start Date Product Form Dose Route Admi nistrative Instructions Pharmacy Instructions Status Indications Reaction Description Data Source(s) Acetaminophen 325 MG / Hydrocodone Mariaelena trate 5 MG Oral Tablet Hydrocodone- Acetaminophen 5-325 MG Hydrocodone-Acetaminophen 5-325 MG 02/02/2020 12:00:00 AM EST 1.0 {tablet_as_needed} active Hydrocodone-Acetaminophen 5-325 MG eCW1 ([facility]) Acetaminophen 325 MG / Hydrocodone Mariaelena trate 5 MG Oral Tablet Hydrocodone- Acetaminophen 5-325 MG Hydrocodone-Acetaminophen 5-325 MG 02/02/2020 12:00:00 AM EST 1.0 {tablet_as_needed} active Hydrocodone-Acetaminophen 5-325 MG eCW1 ([facility]) Acetaminophen 325 MG / Hydrocodone Mariaelena trate 5 MG Oral Tablet Hydrocodone- Acetaminophen 5-325 MG Hydrocodone-Acetaminophen 5-325 MG 02/02/2020 12:00:00 AM EST 1.0 {tablet_as_needed} active Hydrocodone-Acetaminophen 5-325 MG eCW1 ([facility]) Acetaminophen 325 MG / Hydrocodone Mariaelena trate 5 MG Oral Tablet Hydrocodone- Acetaminophen 5-325 MG Hydrocodone-Acetaminophen 5-325 MG 02/02/2020 12:00:00 AM EST 1.0 {tablet_as_needed} active Hydrocodone-Acetaminophen 5-325 MG eCW1 ([facility]) Acetaminophen 325 MG / Hydrocodone Mariaelena trate 5 MG Oral Tablet Hydrocodone- Acetaminophen 5-325 MG Hydrocodone-Acetaminophen 5-325 MG 02/02/2020 12:00:00 AM EST 1.0 {tablet_as_needed} active Hydrocodone-Acetaminophen 5-325 MG eCW1 ([facility]) Acetaminophen 325 MG / Hydrocodone Mariaelena trate 5 MG Oral Tablet Hydrocodone- Acetaminophen 5-325 MG Hydrocodone-Acetaminophen 5-325 MG 02/02/2020 12:00:00 AM EST 1.0 {tablet_as_needed} active Hydrocodone-Acetaminophen 5-325 MG eCW1 ([facility]) Acetaminophen 325 MG / Hydrocodone Mariaelena trate 5 MG Oral Tablet Hydrocodone- Acetaminophen 5-325 MG Hydrocodone-Acetaminophen 5-325 MG 02/02/2020 12:00:00 AM EST 1.0 {tablet_as_needed} active Hydrocodone-Acetaminophen 5-325 MG eCW1 ([facility]) Acetaminophen 325 MG / Hydrocodone Mariaelena trate 5 MG Oral Tablet Hydrocodone- Acetaminophen 5-325 MG Hydrocodone-Acetaminophen 5-325 MG 02/02/2020 12:00:00 AM EST 1.0 {tablet_as_needed} active Hydrocodone-Acetaminophen 5-325 MG eCW1 ([facility]) Furosemide 20 MG Oral Tablet Furosemide 01/23/2020 12:00:00 AM EST ORAL active MEDENT ([facility], ) Acetaminophen 325 MG / Hydrocodone Bitartrate 5 MG Ora l Tablet Hydrocodone-Acetaminophen 01/11/2020 12:00:00 AM EST ORAL active MEDENT ([facility], ) Acetaminophen 325 MG / Hydrocodone Mariaelena trate 5 MG Oral Tablet Hydrocodone- Acetaminophen 5-325 MG Hydrocodone-Acetaminophen 5-325 MG 01/02/2020 12:00:00 AM EST 1.0 {tablet_as_needed} active Hydrocodone-Acetaminophen 5-325 MG eCW1 ([facility]) Acetaminophen 325 MG / Hydrocodone Mariaelena trate 5 MG Oral Tablet Hydrocodone- Acetaminophen 5-325 MG Hydrocodone-Acetaminophen 5-325 MG 01/02/2020 12:00:00 AM EST 1.0 {tablet_as_needed} active Hydrocodone-Acetaminophen 5-325 MG eCW1 ([facility]) Acetaminophen 325 MG / Hydrocodone Mariaelena trate 5 MG Oral Tablet Hydrocodone- Acetaminophen 5-325 MG Hydrocodone-Acetaminophen 5-325 MG 12/15/2019 12:00:00 AM EDT 1.0 {tablet_as_needed} active Hydrocodone-Acetaminophen 5-325 MG eCW1 ([facility]) Acetaminophen 325 MG / Hydrocodone Mariaelena trate 5 MG Oral Tablet Hydrocodone- Acetaminophen 5-325 MG Hydrocodone-Acetaminophen 5-325 MG 12/15/2019 12:00:00 AM EDT 1.0 {tablet_as_needed} active Hydrocodone-Acetaminophen 5-325 MG eCW1 ([facility]) Acetaminophen 325 MG / Hydrocodone Mariaelena trate 5 MG Oral Tablet Hydrocodone- Acetaminophen 5-325 MG Hydrocodone-Acetaminophen 5-325 MG 12/15/2019 12:00:00 AM EDT 1.0 {tablet_as_needed} active Hydrocodone-Acetaminophen 5-325 MG eCW1 ([facility]) Acetaminophen 325 MG / Hydrocodone Mariaelena trate 5 MG Oral Tablet Hydrocodone- Acetaminophen 5-325 MG Hydrocodone-Acetaminophen 5-325 MG 12/15/2019 12:00:00 AM EDT 1.0 {tablet_as_needed} active Hydrocodone-Acetaminophen 5-325 MG eCW1 (Formerly [facility]) 30 ACTUAT fluticasone furoate 0.1 MG/ACT UAT / vilanterol 0.025 MG/ACTUAT Dry Powder Inhaler [Breo] Breo Ellipta 12/07/2019 12:00:00 AM EDT active MEDENT ([facility]) Prednisone 20 MG Oral Tablet PredniSONE 20 MG PredniSONE 20 MG 11/27/2019 12:00:00 AM EDT 1.0 {tablet} active Pr edniSONE 20 MG eCW1 (Formerly [facility]) Albuterol Sulfate 108 (90 Base) MCG/ACT UNK 11/27/2019 12: 00:00 AM EDT 1.0 {puff_as_needed} active Albuterol Sulfa te 108 (90 Base) MCG/ACT eCW1 (Formerly [facility]) Prednisone 20 MG Oral Tablet PredniSONE 20 MG PredniSONE 20 MG 11/27/2019 12:00:00 AM EDT 1.0 {tablet} active Pr edniSONE 20 MG eCW1 (Formerly [facility]) Albuterol Sulfate 108 (90 Base) MCG/ACT UNK 11/27/2019 12: 00:00 AM EDT 1.0 {puff_as_needed} active Albuterol Sulfa te 108 (90 Base) MCG/ACT eCW1 (Formerly [facility]) Prednisone 20 MG Oral Tablet PredniSONE 20 MG PredniSONE 20 MG 11/27/2019 12:00:00 AM EDT 1.0 {tablet} active Pr edniSONE 20 MG eCW1 (Formerly [facility]) Prednisone 20 MG Oral Tablet PredniSONE 20 MG PredniSONE 20 MG 11/27/2019 12:00:00 AM EDT 1.0 {tablet} active Pr edniSONE 20 MG eCW1 (Formerly [facility]) Prednisone 20 MG Oral Tablet PredniSONE 20 MG PredniSONE 20 MG 11/27/2019 12:00:00 AM EDT 1.0 {tablet} active Pr edniSONE 20 MG eCW1 (Formerly [facility]) Prednisone 20 MG Oral Tablet PredniSONE 20 MG PredniSONE 20 MG 11/27/2019 12:00:00 AM EDT 1.0 {tablet} active Pr edniSONE 20 MG eCW1 (Formerly [facility]) Prednisone 20 MG Oral Tablet PredniSONE 20 MG PredniSONE 20 MG 11/27/2019 12:00:00 AM EDT 1.0 {tablet} active Pr edniSONE 20 MG eCW1 (Formerly [facility]) Prednisone 20 MG Oral Tablet PredniSONE 20 MG PredniSONE 20 MG 11/27/2019 12:00:00 AM EDT 1.0 {tablet} active Pr edniSONE 20 MG eCW1 (Formerly [facility]) Prednisone 20 MG Oral Tablet PredniSONE 20 MG PredniSONE 20 MG 11/27/2019 12:00:00 AM EDT 1.0 {tablet} active Pr edniSONE 20 MG eCW1 (Formerly [facility]) Albuterol Sulfate 108 (90 Base) MCG/ACT UNK 11/27/2019 12: 00:00 AM EDT 1.0 {puff_as_needed} active Albuterol Sulfa te 108 (90 Base) MCG/ACT eCW1 (Formerly [facility]) Albuterol Sulfate 108 (90 Base) MCG/ACT UNK 11/27/2019 12: 00:00 AM EDT 1.0 {puff_as_needed} active Albuterol Sulfa te 108 (90 Base) MCG/ACT eCW1 (Formerly [facility]) Prednisone 20 MG Oral Tablet PredniSONE 20 MG PredniSONE 20 MG 11/27/2019 12:00:00 AM EDT 1.0 {tablet} active Pr edniSONE 20 MG eCW1 (Formerly [facility]) Prednisone 20 MG Oral Tablet PredniSONE 20 MG PredniSONE 20 MG 11/27/2019 12:00:00 AM EDT 1.0 {tablet} active Pr edniSONE 20 MG eCW1 (Formerly [facility]) Albuterol Sulfate 108 (90 Base) MCG/ACT UNK 11/27/2019 12: 00:00 AM EDT 1.0 {puff_as_needed} active Albuterol Sulfa te 108 (90 Base) MCG/ACT eCW1 (Formerly [facility]) Albuterol Sulfate 108 (90 Base) MCG/ACT UNK 11/27/2019 12: 00:00 AM EDT 1.0 {puff_as_needed} active Albuterol Sulfa te 108 (90 Base) MCG/ACT eCW1 (Formerly [facility]) Albuterol Sulfate 108 (90 Base) MCG/ACT UNK 11/27/2019 12: 00:00 AM EDT 1.0 {puff_as_needed} active Albuterol Sulfa te 108 (90 Base) MCG/ACT eCW1 (Formerly [facility]) Prednisone 20 MG Oral Tablet PredniSONE 20 MG PredniSONE 20 MG 11/27/2019 12:00:00 AM EDT 1.0 {tablet} active Pr edniSONE 20 MG eCW1 (Formerly [facility]) Prednisone 20 MG Oral Tablet PredniSONE 20 MG PredniSONE 20 MG 11/27/2019 12:00:00 AM EDT 1.0 {tablet} active Pr edniSONE 20 MG eCW1 (Formerly [facility]) Prednisone 20 MG Oral Tablet PredniSONE 20 MG PredniSONE 20 MG 11/27/2019 12:00:00 AM EDT 1.0 {tablet} active Pr edniSONE 20 MG eCW1 (Formerly [facility]) Prednisone 20 MG Oral Tablet PredniSONE 20 MG PredniSONE 20 MG 11/27/2019 12:00:00 AM EDT 1.0 {tablet} active Pr edniSONE 20 MG eCW1 (Formerly [facility]) Albuterol Sulfate 108 (90 Base) MCG/ACT UNK 11/27/2019 12: 00:00 AM EDT 1.0 {puff_as_needed} active Albuterol Sulfa te 108 (90 Base) MCG/ACT eCW1 (Formerly [facility]) Albuterol Sulfate 108 (90 Base) MCG/ACT UNK 11/27/2019 12: 00:00 AM EDT 1.0 {puff_as_needed} active Albuterol Sulfa te 108 (90 Base) MCG/ACT eCW1 (Formerly [facility]) Albuterol Sulfate 108 (90 Base) MCG/ACT UNK 11/27/2019 12: 00:00 AM EDT 1.0 {puff_as_needed} active Albuterol Sulfa te 108 (90 Base) MCG/ACT eCW1 (Formerly [facility]) Prednisone 20 MG Oral Tablet PredniSONE 20 MG PredniSONE 20 MG 11/27/2019 12:00:00 AM EDT 1.0 {tablet} active Pr edniSONE 20 MG eCW1 (Formerly [facility]) Prednisone 20 MG Oral Tablet PredniSONE 20 MG PredniSONE 20 MG 11/27/2019 12:00:00 AM EDT 1.0 {tablet} active Pr edniSONE 20 MG eCW1 (Formerly [facility]) gabapentin 100 MG Oral Capsule Gabapentin 02/03/2019 12:00:00 AM EST ORAL active MEDENT ([facility]) prednisolone acetate 10 MG/ML Ophthalmic Suspension [Pred Forte] Pred Forte 1% Ophthalmic Suspension Pred Forte 1% Ophthalmic Suspension 06/03/2018 12:00:0 0 AM EDT aborted predniso lone acetate 10 MG/ML Ophthalmic Suspension [Pred Forte] WES (Bebeto Mcfadden MD [facility]) besifloxacin 6 MG/ML Ophthalmic Suspensi on [Besivance] Besivance 0.6% Ophthalmic Suspension Besivance 0.6% Ophthalmic Suspension 06/03/2018 12:00:00 AM EDT aborted besifloxacin 6 MG/ML Ophthalmic Suspension [Besivance] WES (Bebeto Mcfadden MD [facility]) BromSite 0.075% Ophthalmic Solution BromSite 0.075% Ophthalm ic Solution 06/03/2018 12:00:00 AM EDT aborted bromfenac 0.75 MG/ML Ophthalmic Solution [Bromsite] WES (Bebeto Mcfadden MD [facility]) Insurance Providers Payer name Policy type / Coverage type Policy ID Covered constitution party ID Covered constitution party's relationship to toscano Policy [place] Plan Information MEDICARE COMPLETE [id number] SP [id number] MEDICARE COMPLETE-[facility] [id number] S [id number] [facility] MEDIC[facility] COMPLE[facility] G [id number] Self [id number] [facility] [id number] Self [id number] MEDICARE COMPLETE [id number] SP [id number] [facility] MEDICAID [id number] [place] [id number] MEDICARE COMPLETE [id number] SP [id number] MEDICARE COMPLETE [id number] SP [id number] ANSI-Medicare Part B [id number] ANSI-Medicare Part B [id number] Medicare Solutions Commercial [id number] Self [id number] ANSI-Medicare Part B [id number] ANSI-Medicare Part B [id number] ANSI-Medicare Part B [id number] ANSI-Medicare Part B [id number] ANS-Medicare Part B [id number] ANSI-Medicare Part B [id number] ANSI-Medicare Part B [id number] ANSI-Medicare Part B [id number] ANS-Medicare Part B [id number] MEDICARE COMPLETE [id number] 97 [id number] Problems, Conditions, and Diagnoses Code Display Name Description Problem Type Effective Dates Data Source(s) F43.21 [id number] Situational depression Problem 03/05/2020 12 :00:00 AM EST eCW1 (Formerly [facility]) F32.9 [id number] Reactive depression (situational) Problem 03/05/2020 12:00:00 AM EST eCW1 (Formerly [facility]) G89.3 [id number] Pain, cancer Problem 12/15/2019 12:00:00 AM EDT eCW1 (Formerly [facility]) J84.9 [id number] Interstitial lung disease Problem 11/28/2019 12:00:00 AM EDT eCW1 (Formerly [facility]) K21.9 Gastroesophageal reflux disease Gastroesophageal reflu x disease Problem 11/27/2019 12:00:00 AM EDT eCW1 (Formerly [facility]) G89.29 [id number] Other chronic pain Problem 07/20/2019 12:00: 00 AM EDT eCW1 (Formerly [facility]) E78.2 [id number] Mixed hyperlipidemia Problem 07/19/2019 12:0 0:00 AM EDT eCW1 (Formerly [facility]) I10 Essential hypertension Essential (primary) hypertensio n Problem 03/24/2019 12:00:00 AM EST eCW1 (Formerly [facility]) I10 Essential hypertension Essential (primary) hypertensio n Problem 03/24/2019 12:00:00 AM EST eCW1 (Formerly [facility]) I06.0 Rheumatic aortic stenosis Rheumatic aortic stenosis Di agnosis 01/25/2020 07:57:25 AM [facility] Z01.810 Encounter for preprocedural cardiovascul ar examination Encounter for preprocedural cardiovascul Diagnosis 01/25/2020 07:57:25 AM [facility] C34.90 Malignant neoplasm of unspecified part o f unspecified bronchus or lung Malignant neoplasm of unspecified part of unspecified bronchus or lung Diagnosis 12/27/2019 02:06:00 PM [facility] Surgeries/Procedures Procedure Description Date Indications Data Source(s) Bronchoscopy W/Brushing Or Protected Brushings 020 12:00:00 AM EST MEDENT ([facility], ) Bronchoscopy W/Bronchial Alveolar Lavage 12/27/2019 12 :00:00 AM EST MEDENT ([facility], ) Bronchoscopy W/Transbronchial Lung Biopsy 12/27/2019 1 2:00:00 AM EST MEDENT ([facility], ) With Endobronchial Ultrasound Guided 12/27/2019 12:00: 00 AM EST MEDENT ([facility], ) Spirometry 12/07/2019 12:00:00 AM EDT M EDENT ([facility], ) Aerosol Or Vapor Inhalations 12/07/2019 12:00:00 AM ED T MEDENT ([facility], ) Immunization: Flublok Quadrivalent (18 years & older) 0.5mL IM (Influenza) 11/27/2019 12:00:00 AM EDT eCW1 ([facility]) History of the retina was normal 07/08/2018 History of the retina was normal 07/08/2018 07/28/2019 12:00:00 AM EDT WES (Bartolo Mcfadden [facility]) Currently wearing eyeglasses Currently wearing eyeglasses 12:00:00 AM EDT WES (Bebeto Mcfadden MD [facility]) History of diabetes mellitus Dx: around , A1c: 7.2 with Denise Soosairaj CW OPERATOR , FBS: 114 this morning History of diabetes mellitus Dx: around , A1c: 7.2 with Denise Soosairaj CW OPERATOR , FBS: 114 this morning 07/28/2019 12:00:00 AM EDT WES (Bebeto liu MD [facility]) Intermediate Eye Exam Established Patient Intermediate Eye Exam Established Patient 07/28/2019 12:00:00 AM EDT WES (Bartolo Mcfadden MD [facility]) History of extracapsular cataract extrac tion PCIOL OS 05/26/[address] De Jesus ~PCIOL OD 06/16/[address] De Jesus History of extracapsular cataract extraction PCIOL OS 05/26/[address] De Jesus ~PCIOL OD 06/16/[address] De Jesus 05/22/2019 12:00:00 AM EDT WES (Bartolo Mcfadden MD [facility]) History of diabetes mellitus Dx: around , A 1c: 7.8, FBS: 160 History of diabetes mellitus Dx: around , A1c: 7.8, FBS: 160 05/22/2019 12:00:00 AM EDT WES (Bebeto Mcfadden MD [facility]) History of extracapsular cataract extrac tion PCIOL OS 05/26/[address] De Jesus ~PCIOL OD 06/16/[address] De Jesus History of extracapsular cataract extraction PCIOL OS 05/26/[address] De Jesus ~PCIOL OD 06/16/[address] De Jesus 05/22/2019 12:00:00 AM EDT WES (Bartolo Mcfadden MD [facility]) History of extracapsular cataract extrac tion PCIOL OS 05/26/[address] De Jesus History of extracapsular cataract extrac tion PCIOL OS 05/26/[address] De Jesus 05/22/2019 12:00:00 AM EDT WES (Bartolo Mcfadden [facility]) History of diabetes mellitus Dx: around , A 1c: 7.8, FBS: 160 History of diabetes mellitus Dx: around , A1c: 7.8, FBS: 160 05/22/2019 12:00:00 AM EDT WES (Bebeto Mcfadden [facility]) History of extracapsular cataract extrac tion PCIOL OS 05/26/[address] De Jesus ~PCIOL OD 06/16/[address] De Jesus History of extracapsular cataract extraction PCIOL OS 05/26/[address] De Jesus ~PCIOL OD 06/16/[address] De Jesus 05/22/2019 12:00:00 AM EDT WES (Bartolo Mcfadden [facility]) Surgical / procedural history 1985, Broken left wrist 1996, Right knee replacement 2014 Surgical / procedural history 1985, Broken left wrist 1996, Right knee replacement 201405/12/2019 12:00:00 AM EDT WES (Bebeto Mcfadden MD [facility]) History of diabetes mellitus Dx: around , A 1c: 7.8, FBS: 160 History of diabetes mellitus Dx: around , A1c: 7.8, FBS: 160 05/12/2019 12:00:00 AM EDT WES (Bebeto Mcfadden [facility]) Surgical / procedural history 1985, Broken left wrist 1996, Right knee replacement 2014 Surgical / procedural history 1985, Broken left wrist 1996, Right knee replacement 201405/12/2019 12:00:00 AM EDT WES (Bebeto Mcfadden MD [facility]) No recent change in medical history No recent change in medi leticia history 05/12/2019 12:00:00 AM EDT WES (Bebeto liu MD [facility]) History of diabetes mellitus Dx: around , A1 c: 7.8, FBS: 160 History of diabetes mellitus Dx: around , A1c: 7.8, FBS: 160 05/12/2019 12:00:00 AM EDT WES (Bebeto Mcfadden [facility]) Surgical / procedural history 1985, Broken left wrist 1996, Right knee replacement 2014 Surgical / procedural history 1985, Broken left wrist 1996, Right knee replacement 2015 05/12/2019 12:00:00 AM EDT WES (Bebeto Mcfadden MD [facility]) History of extracapsular cataract extraction OS [address] De Jesus History of extracapsular cataract extraction OS 05/26/[address] De Jesus 05/12/2019 12:00:00 AM EDT WES (Bebeto liu MD [facility]) History of diabetes mellitus Dx: around , A1 c: 7.8, FBS: 160 History of diabetes mellitus Dx: around , A1c: 7.8, FBS: 160 05/12/2019 12:00:00 AM EDT WES (Bebeto Mcfadden [facility]) Recent change in medical history Cataract surgery OS 05/26/[address] De Jesus Recent change in medical history Cataract surgery OS 05/26/[address] De Jesus 05/12/2019 12:00:00 AM EDT WES (Bebeto liu MD [facility]) Surgical / procedural history 1985, Broken left wrist 1996, Right knee replacement 2014 Surgical / procedural history 1985, Broken left wrist 1996, Right knee replacement 201405/12/2019 12:00:00 AM EDT WES (Bebeto Mcfadden [facility]) History of diabetes mellitus Dx: around , A1 c: 7.8, FBS: 160 History of diabetes mellitus Dx: around , A1c: 7.8, FBS: 160 05/12/2019 12:00:00 AM EDT WES (Bebeto Mcfadden [facility]) Surgical / procedural history 1985, Broken left wrist 1996, Right knee replacement 2014 Surgical / procedural history 1985, Broken left wrist 1996, Right knee replacement 201405/12/2019 12:00:00 AM EDT WES (Bebeto Mcfadden MD [facility]) History of diabetes mellitus Dx: around , A1c: 7.8, FBS: yesterday was around 160 History of diabetes mellitus Dx: around , A1c: 7.8, FBS: yesterday was around 160 05/12/2019 12:00:00 AM EDT WES (Bebeto Mcfadden [facility]) Surgical / procedural history 1985, Broken left wrist 1995, Right knee replacement 2014 Surgical / procedural history 1985, Broken left wrist 1996, Right knee replacement 201405/12/2019 12:00:00 AM EDT WES (Bebeto Mcfadden MD [facility]) No recent change in medical history No recent change in medi leticia history 05/12/2019 12:00:00 AM EDT WES (Bebeto liu MD [facility]) Surgical / procedural history 1985, Broken left wrist 1995, Right knee replacement 2014 Surgical / procedural history 1985, Broken left wrist 1996, Right knee replacement 201405/12/2019 12:00:00 AM EDT WES (Bebeto Mcfadden MD [facility]) Office Visit, Est Pt., Level 2 FC 03/24/2019 12:00:00 AM EST eCW1 (Formerly [facility]) Office Visit, Est Pt., Level 4 PC 03/24/2019 12:00:00 AM EST eCW1 (Formerly [facility]) Results ID Date Data Source [id number] 02/27/2020 03:48:00 PM EST [facility] Name Value Range Interpretation Code Description Data Madyson rce(s) Supporting Document(s) SARS-CoV-2 (COVID 19) NEGATIVE - SARS-CoV-2 (COVID19) [facility] This lab was ordered by [facility] a nd reported by [facility]. ID Date Data Source [id number] 01/27/2020 04:23:00 PM EST [facility] Name Value Range Interpretation Code Description Data Madyson rce(s) Supporting Document(s) SARS-CoV-2 (COVID 19) [facility] This lab was ordered by [facility] a nd reported by [facility]. ID Date Data Source [id number] 01/26/2020 11:40:00 AM EST MEDENT ([facility], ) Name Value Range Interpretation Code Description Data Madyson rce(s) Supporting Document(s) Natriuretic peptide.B prohormone N-Terminal [Mass/volu me] in Serum or Plasma 713 pg/mL Above high normal MEDENT ([facility], ) ID Date Data Source [id number] 01/26/2020 11:40:00 AM EST MEDENT ([facility]) Name Value Range Interpretation Code Description Data Madyson rce(s) Supporting Document(s) Glucose, Fasting 142 mg/dL 70-100 Above high normal M EDENT ([facility]) Blood Urea Nitrogen 15 mg/dL 7-18 Normal (applies to non-nume blaire results) [facility] ([facility]) Creatinine For GFR 0.51 mg/dL 0.55-1.30 Below low normal [facility] ([facility]) Glomerular Filtration Rate Laboratory test result Normal (applies to non- numeric results) [facility] ([facility]) <content>Units are mL/min/1.73 m2</content>
<content></content>
<content>Chronic Kidney Disease Staging per NKF:</content>
<content></content>
<content>Stage I & II GFR >=60 Normal to Mildly Decreased</content>
<content>Stage III GFR 30- 59 Moderately Decreased</content>
<content>Stage IV GFR 15-29 Severely Decreased</content>
<content>Stage V GFR <15 Very Little GFR Left</content>
<content>ESRD GFR <15 on SCALE MECHANIC</content>
<content></content> Potassium Serum 4.0 meq/L 3.5-5.1 Normal (applies to non-numeric results) [facility] ([facility]) Sodium Level 140 meq/L 136-145 Normal (applies to non-numeric res ults) [facility] ([facility]) Carbon Dioxide Level 33 meq/L 21-32 Above high normal [facility] ([facility]) Anion Gap 6 meq/L 8-16 Below low normal [facility] ( [facility]) Chloride Level 101 meq/L 98-107 Normal (applies to non-numeric r esults) [facility] ([facility]) Calcium Level 8.7 mg/dL 8.8-10.2 Below low normal [facility] ([facility]) ID Date Data Source [id number] 01/09/2020 10:39:00 AM EST MEDENT ([facility]) Name Value Range Interpretation Code Description Data Madyson rce(s) Supporting Document(s) Urea nitrogen [Mass/volume] in Serum or Plasma 12 mg/dL 7 -18 Normal (applies to non-numeric results) [facility] ([facility]) ID Date Data Source [id number] 01/09/2020 10:39:00 AM [facility] ([facility]) Name Value Range Interpretation Code Description Data Madyson rce(s) Supporting Document(s) Glomerular Filtration Rate Laboratory test result Normal (applies to non- numeric results) [facility] ([facility]) <content>Units are mL/min/1.73 m2</content>
<content></content>
<content>Chronic Kidney Disease Staging per NKF:</content>
<content></content>
<content>Stage I & II GFR >=60 Normal to Mildly Decreased</content>
<content>Stage III GFR 30- 59 Moderately Decreased</content>
<content>Stage IV GFR 15-29 Severely Decreased</content>
<content>Stage V GFR <15 Very Little GFR Left</content>
<content>ESRD GFR <15 on SCALE MECHANIC</content>
<content></content> Creatinine For GFR 0.47 mg/dL 0.55-1.30 Below low normal [facility] ([facility]) ID Date Data Source [id number] 01/05/2020 11:01:00 AM EST [facility] ([facility]) Name Value Range Interpretation Code Description Data Madyson rce(s) Supporting Document(s) Gram Stain Laboratory test result Normal (applies to non-n umeric results) [facility] ([facility]) MANY RBCS MODERATE WBCS NO ORGANISMS SEEN Body Fluid Culture Laboratory test result [facility] ([facility]) If aerobic or anaerobic growth is detected within the next 7-21 days, an addendum will follow. . . FULL REPORT IN LAB NOTES ([facility]CW and [facility]). NO GROWTH AEROBICALLY ID Date Data Source [id number] 01/05/2020 11:01:00 AM EST [facility] ([facility]) Name Value Range Interpretation Code Description Data Madyson rce(s) Supporting Document(s) PH Body Fluid 7.399 units Normal (applies to non-numeric r esults) [facility]) Source, Body Fluid pH Laboratory test result Nor mal (applies to non-numeric results) [facility]) ID Date Data Source [id number] 01/05/2020 11:01:00 AM EST [facility]) Name Value Range Interpretation Code Description Data Madyson rce(s) Supporting Document(s) Source, Body Fluid Amylase Laboratory test result Normal (applies to non- numeric results) [facility]) Amylase, Body Fluid 14 U/L Normal (applies to non-nume blaire results) [facility]) ID Date Data Source [id number] 01/05/2020 11:01:00 AM EST [facility] ([facility]) Name Value Range Interpretation Code Description Data Madyson rce(s) Supporting Document(s) Glucose, Body Fluid 120 mg/dL Normal (applies to non-nume blaire results) [facility]) Source, Body Fluid Glucose Laboratory test result Normal (applies to non- numeric results) [facility]) ID Date Data Source [id number] 01/05/2020 11:01:00 AM EST [facility] ([facility]) Name Value Range Interpretation Code Description Data Madyson rce(s) Supporting Document(s) Source, Body Fluid LDH Laboratory test result No rmal (applies to non-numeric results) [facility]) LDH, Body Fluid 188 U/L Normal (applies to non-numeric results) [facility] ([facility]) ID Date Data Source [id number] 01/05/2020 11:01:00 AM EST [facility] ([facility]) Name Value Range Interpretation Code Description Data Madyson rce(s) Supporting Document(s) Total Protein, Body Fluid 4.1 g/dL Normal (applies to no n-numeric results) [facility] ([facility]) Source, Body Fluid Tot Protein Laboratory test result Normal (applies to non- numeric results) [facility] ([facility]) ID Date Data Source [id number] 01/05/2020 11:01:00 AM EST [facility]) Name Value Range Interpretation Code Description Data Madyson rce(s) Supporting Document(s) Bacteria identified in Unspecified specimen by Anaerob e culture Laboratory test result [facility]) If anaerobic or aerobic growth is detected within the next 7-21 days, an addendum will follow. . . FULL REPORT IN LAB NOTES ([facility] and [facility]). NO GROWTH ANAEROBICALLY ID Date Data Source [id number] 01/05/2020 11:01:00 AM EST [facility] ([facility]) Name Value Range Interpretation Code Description Data Madyson rce(s) Supporting Document(s) Source, Body Fluid Laboratory test result Normal (applies to non-numeric results) [facility] ([facility]) Pleural FL Color Laboratory test result Normal ( applies to non-numeric results) [facility] ([facility]) RBC Body Fluid 26 10 Normal (applies to non-numeric r esults) [facility] ([facility]) Appearance, Body Fluid Laboratory test result No rmal (applies to non-numeric results) [facility] ([facility]) WBC Body Fluid 634 /uL 0-10 Above high normal [facility] ([facility]) BF Mononuclear Cell % 94.6 % 0-0 Above high normal [facility] ([facility]) BF Polymorphonuclear Cell % 5.4 % 0-0 Above high normal [facility] ([facility]) ID Date Data Source [id number] 01/05/2020 11:01:00 AM EST [facility] ([facility]) Name Value Range Interpretation Code Description Data Madyson rce(s) Supporting Document(s) Amylase [Enzymatic activity/volume] in Body fluid Laboratory test res ult [facility] ([facility]) ID Date Data Source [id number] 01/05/2020 09:21:00 AM EST [facility] ([facility]) Name Value Range Interpretation Code Description Data Madyson rce(s) Supporting Document(s) Surgical pathology study Laboratory test result [facility] ([facility]) FINAL DIAGNOSIS Right pleural fluid, cell-block: No malignant cells identified. Inflammatory cells and mesothelial cells. TTF-1 stain used in evaluation. See specimen [id number] 01/09/2020 - 1112 CLINICAL DIAGNOSIS Right pleural effusion 01/08/202009 GROSS DIAGNOSIS Received 400 ml of right pleural fluid for cell block. -OA 01/09/20201112 Signed LILIYA WASHINGTON MD 01/09/2020 1113 ID Date Data Source [id number] 01/05/2020 09:21:00 AM EST [facility] ([facility]) Name Value Range Interpretation Code Description Data Madyson rce(s) Supporting Document(s) Microscopic observation [Identifier] in Unspecified specimen by Non- gynecological cytology method Laboratory test result [facility] ([facility]) SPECIMEN: Pleural fluid 400ml Red SPECIMEN ADEQUACY: Satisfactory for evaluation CATEGORIZATION: Rare Clusters of Atypical Cells DESCRIPTIONS: Few groups of atypical cells exhbiting irregular nuclei with prominent nucleoli, suspicious for metastatic carcinoma. COMMENTS: Clinical correlation is recommended. 01/09/2020 112 Signed FIORELLA ERNANDEZ(ASCP) 01/08/2020 0739 (Prelim) Signed LILIYA WASHINGTON MD 01/09/2020 1122 ID Date Data Source [id number] 12/27/2019 02:30:00 PM EST [facility] ([facility]) Name Value Range Interpretation Code Description Data Madyson rce(s) Supporting Document(s) Surgical pathology study Laboratory test result [facility] ([facility], ) Anatomic Molecular Pathology Report Name: OPAL VALENZUELA Collection Date: 12/27/2019 00:00 Received Date: 12/29/2019 14:28 Physician(s): BRIANA HUGHES MD Haghir, Shahandeh MD Copy To: BRIANA HUGHES MD Specimen(s) Received A: Right lung, lower lobe, Formalin Block [id number] received from [facility] in [place], [place] ROS1 by FISH Diagnosis TEST: ROS1 gene rearrangements by FISH (Fluorescence in situ Hybridization). RESULT: Percent tumor cells with ROS1 gene rearrangement (break-apart and/or 5' deletion) is 6%. ISCN - nuc kalin (5'ROS1,3'ROS1)x2~6(5'ROS1 con 3'ROS1x2~6)[47/50] INTERPRETATION: NEGATIVE FOR ROS1 GENE REARRANGEMENT. 15% is used as a cut-off value: d15% is positive for ROS1 gene rearrangements while c15% is negative. ROS1 gene rearrangements, including break-apart and/or 5' deletion, can be identified in 1-2% of non-small cell lung cancer, and are associated with better response to treatment with crizotinib. jaj/kg Electronically Signed By Chelly Sena MD, PhD Attending Pathologist 01/09/2020 11:59:25 Gross Description METHODOLOGY: Interphase FISH is performed on paraffin embedded NSCLC utilizing the combined Dugan Molecular LSI ROS1(Farnaz) and ROS1(Tel) ROS1 Probes: 1) 3'-ROS1(Farnaz), 557 kb, labeled with Spect rumGreen, and 2) 5'-ROS1(Tel), 317kb, labeled with SpectrumOrange. Tumo r cells with no ROS1 rearrangements have 2 yellow signals (fused orange and green signal). Tumor cells with ROS1 rearrangement have orange and green signal (break apart) and/or deleted orange sign al (5' deletion). Hybridization is carried out as per the stated protocol with no significant background or random probe hybridization detected. A total of 50 -100 interphase tumor nuclei are examined manually by one or two scorers, depending on initial evaluation. d15% of tumor cells with ROS1 gene rearrangement is called positive. This test was developed and its performance characteristics were determined by the [facility], and it has been authorized for clinical use by [facility]. The test has not been cleared or approved by the U.S. Food and Drug Administration. The analyte specific reagents used in this assay do not require FDA approval. Processed at [facility] [employer], [address] [place] [address] and reported at [facility], [address] [place] [address]. REFERENCES: 1. ALEM Che, Ava AT, Elba GALVAN et al. Identifying and Targeting ROS1 Gene Fusions in NonSmall Cell Lung Cancer. Clin Cancer Res 2012; 18(17); 61084398. 2. Carlin, [place] AT. Novel Targets i n Non-Small Cell Lung Cancer: ROS-1 and RET fusions. The Oncologist. 2013;18:865-875. This report may include one or more immunohistochemical stain results that use analyte specific reagents. All positive and negative controls have been reviewed by the attending pathologist and are satisfactory. The tests were developed and their performance characteristics determined by [facility] Pathology department. They have not been cleared or approved by the US Food and Drug Administration. The FDA has determined that such clearance or approval is not necessary. ID Date Data Source [id number] 12/27/2019 09:12:00 AM EST [facility] ([facility], ) Name Value Range Interpretation Code Description Data Madyson rce(s) Supporting Document(s) Microscopic observation [Identifier] in Unspecified specimen by Non- gynecological cytology method Laboratory test result [facility] ([facility]) will discuss at follow-up ID Date Data Source [id number] 12/27/2019 09:04:00 AM EST [facility] ([facility], ) Name Value Range Interpretation Code Description Data Madyson rce(s) Supporting Document(s) Glucose [Mass/volume] in Capillary blood by Glucometer 176 mg/dL 83-110 Above high normal [facility] ([facility]) Doctor Notified ID Date Data Source [id number] 12/27/2019 08:52:00 AM EST [facility] ([facility]) Name Value Range Interpretation Code Description Data Madyson rce(s) Supporting Document(s) Microscopic observation [Identifier] in Unspecified specimen by Non- gynecological cytology method Laboratory test result [facility] ([facility]) SPECIMEN: Bronchial brushing (right lower lobe) Entriken in vial and prepared slides received SPECIMEN ADEQUACY: Satisfactory for evaluation CATEGORIZATION: Positive for Malignancy DESCRIPTIONS: Small groups and single malignant cells noted exhibiting nuclei of varying size with multiple prominent nucleoli. The background consists of scattered lymphocytes and blood. COMMENTS: See also report [id number] /TR 12/28/2019914 Signed FIORELLA ERNANDEZ(ASCP) 12/28/2019 0752 (Prelim) Signed Isabella Mckeon MD 12/28/2019914 ID Date Data Source [id number] 12/27/2019 08:51:00 AM EST [facility] ([facility]) Name Value Range Interpretation Code Description Data Madyson rce(s) Supporting Document(s) Microscopic observation [Identifier] in Unspecified specimen by Non- gynecological cytology method Laboratory test result [facility] ([facility]) SPECIMEN: FNA Subcarinal lymp h node Cytolyt and prepared slides received SPECIMEN ADEQUACY: Satisfactory for evaluation CATEGORIZATION: Positive for Malignancy DESCRIPTIONS: Specimen consists of groups and single malignant cells exhibiting variation in nuclear size and prominent multiple nucleoli. COMMENTS: Findings are consistent with metastatic NSCLC, see also report [id number] /TR 12/28/2019913 Signed FIORELLA ERNANDEZ(ASCP) 12/28/2019 0702 (Prelim) Signed Isabella Mckeon MD 12/28/2019913 ID Date Data Source [id number] 12/27/2019 08:38:00 AM EST [facility] ([facility]) Name Value Range Interpretation Code Description Data Madyson rce(s) Supporting Document(s) Surgical pathology study Laboratory test result [facility] ([facility]) Addendum 1 Entered: 01/10/2020-0805 PD-L1 KEYTRUDA shows tumor proportion score of 80%/High expression. See complete report from [facility]. Negative EGFR Negative for KRAS Negative for BRAF Negative for ALK Negative for ROS1 See complete reports from [facility], scanned in EMR under pathology module. 01/10/2020804 Addendum Signed____ Isabella Mckeon MD 01/10/2020804 FINAL DIAGNOSIS Right lung, lower lobe, biopsy: Poorly differentiated/high grade adenocarcinoma. TTF-1 is positive in tumor cells and P40 stain is negative. See note. NOTE: The unstained slides were sent for PD-L1 testing to [facility] and the tissue block to [facility] for molecular test panel. Addendum with results will follow. 4/TR 12/28/20191251 CLINICAL DIAGNOSIS Abnormal x-ray 12/27/20191506 GROSS DIAGNOSIS Received in formalin labeled "right lower lobe" is a bag containing a 0.8 x 0.4 x 0.2 cm aggregate of pale whi te and red fragments. All in one. - 12/27/20191506 Signed Isabella Mckeon MD 12/28/20191251 ID Date Data Source [id number] 12/27/2019 07:15:00 AM EST [facility] Name Value Range Interpretation Code Description Data Madyson rce(s) Supporting Document(s) Glucose [Mass/volume] in Capillary blood by Glucometer 152 mg/dL 83-110 Above high normal [facility] ([facility]) ID Date Data Source [id number] 12/27/2019 07:13:00 AM EST [facility] ([facility]) Name Value Range Interpretation Code Description Data Madyson rce(s) Supporting Document(s) Gram Stain Laboratory test result Normal (applies to non-n umeric results) [facility] ([facility], ) MANY WBCS NO ORGANISMS SEEN Bal Culture Laboratory test result Normal (applies to non- numeric results) [facility] ([facility], ) FULL REPORT IN LAB NOTES ([facility] and [facility] ). NO GROWTH AEROBICALLY ID Date Data Source [id number] 01/09/2020 11:59:00 AM [facility] Anatomic Molecular Pathology ReportName: FELIX VALENZUELA: [id number] Number: [id number] Date: 12/27/2019 00:00Received Date: 12/29/2019 14:28Physician(s): BRIANA HUGHES MD Haghir, Shahandeh [facility] To:BRIANA HUGHES MDSpecimen(s) ReceivedA: Right lung, lower lobe, Formalin Block [id number] received from [facility] in [place], [place] ROS1 by FISHDiagnosisTEST:ROS1 gene rearrangements by FISH (Fluorescence in situ Hybridization).RESULT:Percent tumor cells with ROS1 gene rearrangement (break- apart and/or 5'deletion) is 6%.ISCN - nuc kalin (5'ROS1,3'ROS1)x2~6(5'ROS1 con 3'ROS1x2~6)[47/50] INTERPRETATION: NEGATIVE FOR ROS1 GENE REARRANGEMENT.15% is used as a cut-off value: d15% is positive for ROS1 generearrangements while c15% is negative. ROS1 gene rearrangements, includingbreak-apart and/or 5' deletion, can be identified in 1-2% of non-smallcell lung cancer, and are associated with better response to treatmentwith crizotinib. andrew/kgElectronically Signed By Chelly Sena MD, PhD AttendingPathologist 01/09/2020 11:59:25Gross DescriptionMETHODOLOGY:Interphase FISH is performed on paraffin embedded NSCLC utilizing thecombined Dugan Molecular LSI ROS1(Farnaz) and ROS1(Tel) ROS1 Probes: 1)3'-ROS1(Farnaz), 557 kb, labeled with SpectrumGreen, and 2) 5'-ROS1(Tel),317kb, labeled with SpectrumOrange. Tumor cells with no STM9zdksfboiaxmslv have 2 yellow signals (fused orange and green signal).Tumor cells with ROS1 rearrangement have orange and green signal(break apart) and/or deleted orange signal (5' deletion). Hybridization iscarried out as per the stated protocol with no significant background orrandom probe hybridization detected. A total of 50 -100 interphase tumornuclei are examined manually by one or two scorers, depending on initialevaluation. d15% of tumor cells with ROS1 gene rearrangement is calledpositive.This test was developed and its performance characteristics weredetermined by the [facility],and it has been authorized for clinical use by [facility]. The test has not been cleared or approved by the U.S. Food andDrug Administration. The analyte specific reagents used in this assay donot require FDA approval. Processed at [facility] [employer], [address] [place] [address] and reported at [facility], [address] [place] [address].REFERENCES: 1. ALEM Che, Ava AT, Elba GALVAN et al. Identifying and Targeting DZE7Imii Fusions in NonSmall Cell Lung Cancer. Clin Cancer Res 2012; 18(17);44064329.2. Carlin, [place] AT. Novel Targets in Non-Small Cell Lung Cancer:ROS-1 and RET fusions. The Oncologist. 2013;18:865- 875.This report may include one or more immunohistochemical stain results thatuse analyte specific reagents. All positive and negative controls havebeen reviewed by the attending pathologist and are satisfactory. The testswere developed and their performance characteristics determined by [facility] Pathology department. They have not been cleared or approved by the USFood and Drug Administration. The FDA has determined that such clearanceor approval is not necessary. Name Value Range Interpretation Code Description Data Madyson rce(s) Supporting Document(s) ID Date Data Source [id number] 01/09/2020 11:58:00 AM [facility] Anatomic Molecular Pathology ReportName: CLAY VALENZUELAGUDELIA: [id number] Number: [id number] Date: 12/27/2019 00:00Received Date: 12/29/2019 14:26Physician(s): BRIANA HUGEHS MD Haghir, Shahandeh MDCopy To:BRIANA HUGHES MDSpecimen(s) ReceivedA: Right lung, lower lobe, Formalin Block [id number] received from [facility] in [place], [place], ALK by FISHDiagnosisTEST:ALK gene rearrangements by FISH (Fluorescence in situ Hybridization).RESULT:Percent tumor cells with ALK gene rearrangement (break- apart and/or 5'deletion) is 4%.ISCN - nuc kalin (5'ALK,3'ALK)x2~4(5'ALK con 3'ALKx2~4)[48/50] INTERPRETATION: NEGATIVE FOR ALK GENE REARRANGEMENT. 15% is used as a cut-off value: d15% is positive for ALK generearrangement while c15% is negative. ALK gene rearrangements, includingbreak apart and/or 5' deletion, can be identified in 3-7% of non-smallcell lung cancer, and are associated with better response to treatmentwith crizotinib. andrew/kgElectronically Signed By Chelly Sena MD, PhD AttendingPathologist 01/09/2020 11:58:36Gross DescriptionMETHODOLOGY:Interphase FISH is performed on paraffin embedded NSCLC utilizing theMyMundus Molecular ALK Break Apart FISH Probe Kit. This is a combination,direct label, dual color detection system utilizing 2 probes: 1) 3'- ALK,300 kb, labeled with SpectrumOrange, and 2) 5'-ALK, 442 kb, labeled withSpectrumGreen. Tumor cells with no ALK rearrangements have 2 yellowsignals (fused orange and green signal). Tumor with ALK rearrangement haveseparated orange and green signal (break apart) and/or deleted greensignal (5' deletion). Hybridization is carried out as per the statedprotocol with no significant background or random probe hybridizationdetected. A total of 50 -100 interphase tumor nuclei are examined manuallyby one or two scorers, depending on initial evaluation. d15% of tumorcells with ALK gene rearrangement is called positive.This FISH Probe Kit was approved by FDA for this application and has beenvalidated in the special procedure laboratory of Department of Pathology,[facility]. Processed at [facility] [employer], [address] [place], [place] [address] and reported at [facility], [address] [place] [address].This report may include one or more immunohistochemical stain results thatuse analyte specific reagents. All positive and negative controls havebeen reviewed by the attending pathologist and are satisfactory. The testswere developed and their performance characteristics determined by [facility] Pathology department. They have not been cleared or approved by the USFood and Drug Administration. The FDA has determined that such clearanceor approval is not necessary. Name Value Range Interpretation Code Description Data Madyson rce(s) Supporting Document(s) ID Date Data Source [id number] 01/08/2020 09:28:00 AM [facility] Anatomic Molecular Pathology ReportName: FELIX VALENZUELA: [id number] Number: [id number] Date: 12/27/2019 00:00Received Date: 12/29/2019 14:30Physician(s): BRIANA HUGHES MD Haghir, Shahandeh MDCopy To:BRIANA HUGHES MDSpecimen(s) ReceivedA: Right lung, lower lobe, Formalin Block [id number] received from [facility] in [place], [place] KRAS Mutation AnalysisDiagnosisTEST:KRAS gene mutations by therascreene RGQ real-time PCR (polymerase chainreaction).RESULTS:No KRAS mutations were detected.INTERPRETATION: NEGATIVE FOR KRAS GENE MUTATION.KRAS gene mutations at codon 12 or 13 of exon 2 may be associated withresistance to therapies with anti-EGFR monoclonal antibody, tyrosinekinase inhibitors or other related agents in patients with colon or lungcancer. The seven mutations (G12S, G12R, G12C, G12D, G12A, G12V, G13D)detected by this assay account for >97% of all reported KRAS mutations. The results are adjuncts to other clinical and pathologic information forevaluating the therapeutic response. xiomara/ efraínElectronically Signed By Jorge Baledras M.D. Attending Pathologist 01/08/2020 09:28:14Reported at [address] [place] [address]. Gross DescriptionMETHODOLOGY: The therascreen KRAS RGQ PCR Kit is a real-time qualitative PCR assayused on the IMN instrument for the detection of seven somaticmutations in the human KRAS oncogene, using DNA extracted fromformalin-fixed paraffin-embedded (FFPE) colorectal cancer (CRC) tissue. The tumor area is identified by the pathologist and is manuallymicrodissected.The assay uses Scorpionse and ARMSe (Allele RefractoryMutation System) technologies, and is FDA-approved for clinical patientcare. Allele-specific amplification is achieved by ARMS which exploitsthe ability of Taq DNA polymerase to distinguish between a matched and amismatched base at the 3' end of a PCR primer. Detection of amplificationis performed using Scorpions, bifunctional molecules containing a PCRprimer covalently linked to a probe.REFERENCES:1. TARIK Herrera, Prince JM, Lynn MR, et al. [place] Societyof Clinical Oncology provisional clinical opinion: testing for KRAS genemutations in patients with metastatic colorectal carcinoma to predictresponse to anti-epidermal growth factor receptor monoclonal antibodytherapy. J Clin Oncol 27:5958-0327, 2009. 2. Karla Yanes , Sophie Ferguson , VIKTORIYA Scott, et al.Biomarkers predicting clinical outcome of epidermal growth factor receptortargeted therapy in metastatic colorectal cancer. J Natl Cancer Egdw316:25528470, 2009.This report may include one or more immunohistochemical stain results thatuse analyte specific reagents. All positive and negative controls havebeen reviewed by the attending pathologist and are satisfactory. The testswere developed and their performance characteristics determined by [facility] Pathology department. They have not been cleared or approved by the USFood and Drug Administration. The FDA has determined that such clearanceor approval is not necessary. Name Value Range Interpretation Code Description Data Madyson rce(s) Supporting Document(s) ID Date Data Source [id number] 01/08/2020 09:26:00 AM [facility] Anatomic Molecular Pathology ReportName: CLAY VALENZUELAJamesN: [id number] Number: [id number] Date: 12/27/2019 00:00Received Date: 12/29/2019 14:29Physician(s): BRIANA HUGHES MD Haghir, Shahandeh MDCopy To:BRIANA HUGHES MDSpecimen(s) ReceivedA: Right lung, lower lobe, Formalin Block [id number] received from [facility] in [place], [place] EGFRDiagnosisTEST: EGFR gene mutations (exon 19 deletions, L858R, G719A, T790M, S768I,exon 20 insertions, L861Q) by therascreene RGQ real-time PCR RESULTS: An EGFR mutation is not detected.INTERPRETATION: NEGATIVE FOR EGFR GENE MUTATION.This test is FDA approved and intended to be used to select patients withnon-small cell lung cancer for whom EGFR tyrosine kinase inhibitor (TKI),such as afatinib, is indicated. Presence of exon 19 deletions, exon 91U976O or L861Q, exon 18 G719A or exon 20 S768I mutation is associated witha better response to TKI therapy. TKI therapeutic resistance of T790M andexon 20 insertions have been reported, and safety and efficacy of TKItherapy on these mutations have not been established. The results areadjuncts to other clinical and pathologic information available forevaluating the therapeutic response. Tumors that contain less than 20%mutation may not be detected in some mutation types by this assay. andrew/efraínElectronically Signed By Jorge Balderas M.D. Attending Pathologist 01/08/2020 09:26:13Reported at [address] [place] [address]. Gross DescriptionMETHODOLOGY:The therascreen EGFR RGQ PCR Kit ([employer], [place], [place]) is a real-timequalitative PCR assay used on the Access Systems Q MDx instrument for thedetection of seven types of mutations at EGFR oncogene. The kit requiresDNA extracted from formalin-fixed paraffin-embedded (FFPE) tissue ofnon-small cell lung cancer. The tumor area is identified by the attendingpathologist and manually microdissected. The assay uses Scorpionse andARMSe (Allele Refractory Mutation System) technologies, and [facility] HealthDA-approved for clinical patient care. Allele-specific amplification isachieved by ARMS which exploits the ability of Taq DNA polymerase todistinguish between a matched and a mismatched base at the 3' end of a PCRprimer. Detection of amplification is performed using Scorpions, which arebifunctional molecules containing a PCR primer covalently linked to aprobe.REFERENCES:1. Nicole Berry, Rick Reilly, Nicole Woo et al. EGFR-targeted therapyfor non-small cell lung cancer: focus on EGFR oncogenic mutation. Int. J. Med. Sci. 2013; 10: 320. 2. Radha Bennett., et al. First-line gefitinib in patients withadvanced non-small cell lung cancer harboring somatic EGFR mutations. J.Clin.Oncol. 2008;15: 2442.3. Whitman SV, Mckenna DW, Tasia J et al. Epidermal growth factor receptormutations in lung cancer. Nature Review/Cancer. 2007;9133-6458.This report may include one or more immunohistochemical stain results thatuse analyte specific reagents. All positive and negative controls havebeen reviewed by the attending pathologist and are satisfactory. The testswere developed and their performance characteristics determined by [facility] Pathology department. They have not been cleared or approved by the USFood and Drug Administration. The FDA has determined that such clearanceor approval is not necessary. Name Value Range Interpretation Code Description Data Madyson rce(s) Supporting Document(s) ID Date Data Source [id number] 01/08/2020 09:23:00 AM [facility] Anatomic Molecular Pathology ReportName: CLAY VALENZUELAJamesN: [id number] Number: [id number] Date: 12/27/2019 00:00Received Date: 12/29/2019 14:32Physician(s): BRIANA HUGHES MD Haghir, Shahandeh MDCopy To:BRIANA HUGHES MDSpecimen(s) ReceivedA: Right lung, lower lobe, Formalin Block [id number] received from [facility] in [place], [place] BRAF Mutation AnalysisDiagnosisTESTS:BRAF V600E mutation (1799 T>A) at exon 15 by real time PCR.RESULTS:Wild type probe (yellow gain): Ct value and end-point fluorescence are30.56 and 0.791 respectively.Mutant probe (green gain): Ct value and end- point fluorescence are 45.00and 0.086 respectively.(Mutant probe EPF cut-off value: 0.192)INTERPRETATION:NEGATIVE FOR BRAF V600E MUTATION.BRAF V600E (1799 T>A) mutation at exon 15 is a genetic alterationidentified in a variety of neoplasm and present in approximately 3% oflung adenocarcinoma. BRAF V600E in lung adenocarcinoma might be associatedwith decreased sensitivity to EGFR inhibitor such as gefitinib, andincreased response to BRAF inhibitor such as v emurafenib. The test resultis considered positive if the Ct value (mutant probe) is less than 45 andthe EPF is higher than cut-off value. If the percentage of mutant DNA isless than 10% in a background of wild-type DNA, the mutation may not bedetected by this assay. This result is an adjunct to other clinical andpathologic information for appropriate patient management.andrew/ernestozElectronically Signed By Jorge Balderas M.D. Attending Pathologist 01/08/2020 09:23:29Reported at [address] [place] [address]. Gross DescriptionMETHODOLOGY:BRAF V600E(1799 T>A) mutation at exon 15 is detected by real time PCRusing allele-specific TaqMan probes and performed on paraffin embeddedtissues. The tumor area is identified by the pathologist and is manuallymicrodissected. The mutant probe was labeled with a FAM-fluorophore whilethe wild-type probe with a DANNA-fluorophore. The amount of fluorescentemissions rendered by specific probe hybridization was associated the amounts of PCR products, and analyzed by [employer] Q real timeinstrument. The analytical sensitivity (or minimum percentage of mutantDNA needed) is approximately 10% given sufficient DNA input. Test development and its performance characteristics were determined bythe [facility], and has beenauthorized for clinical use by [facility]. Thetest has not been cleared or approved by the U.S. Food and DrugAdministration. The analyte specific reagents used in this assay do notrequire FDA approval. REFERENCES: 1. Gisel SKenneth Alenda C, et al. Detection of BRAF Z793Vnikcgoma in colorectal cancer-comparison of automatic sequencing and realtime chemistry methodology. J Mol Diagn. 2006; 8:838719.2. Bora L, Tip TRACY, Ella N, et al. BRAF mutation analysis in fineneedle aspiration (FNA) cytology of the thyroid. Diagn Mol Pathol.2006;15:856793.3. Machelle PK, Mesha ME, Caron M, et al. Clinical characteristics ofpatients with lung adenocarcinomas harboring BRAF mutations. J Clin Oncol.2011;29:2774-0254.This report may include one or more immunohistochemical stain results thatuse analyte specific reagents. All positive and negative controls havebeen reviewed by the attending pathologist and are satisfactory. The testswere developed and their performance characteristics determined by [facility] Pathology department. They have not been cleared or approved by the USFood and Drug Administration. The FDA has determined that such clearanceor approval is not necessary. Name Value Range Interpretation Code Description Data Madyson rce(s) Supporting Document(s) ID Date Data Source [id number] 12/22/2019 01:00:00 PM EDT [facility] Name Value Range Interpretation Code Description Data Madyson rce(s) Supporting Document(s) SARS coronavirus 2 RNA [facility] This lab was ordered by [facility] and reported by [facility]. ID Date Data Source [id number] 12/07/2019 10:38:00 AM EDT [facility] ([facility], ) Name Value Range Interpretation Code Description Data Madyson rce(s) Supporting Document(s) Glucose, Fasting 52 mg/dL 70-100 Below low normal ME DENT ([facility], ) Creatinine For GFR 0.47 mg/dL 0.55-1.30 Below low normal [facility] ([facility]) Blood Urea Nitrogen 13 mg/dL 7-18 Normal (applies to non-nume blaire results) [facility] ([facility], ) Glomerular Filtration Rate Laboratory test result Normal (applies to non- numeric results) [facility], ) <content>Units are mL/min/1.73 m2</content>
<content></content>
<content>Chronic Kidney Disease Staging per NKF:</content>
<content></content>
<content>Stage I & II GFR >=60 Normal to Mildly Decreased</content>
<content>Stage III GFR 30- 59 Moderately Decreased</content>
<content>Stage IV GFR 15-29 Severely Decreased</content>
<content>Stage V GFR <15 Very Little GFR Left</content>
<content>ESRD GFR <15 on SCALE MECHANIC</content>
<content></content> Sodium Level 139 meq/L 136-145 Normal (applies to non-numeric res ults) [facility] ([facility]) Chloride Level 103 meq/L 98-107 Normal (applies to non-numeric r esults) [facility] ([facility]) Carbon Dioxide Level 32 meq/L 21-32 Normal (applies to non-num tyrese results) [facility]) Potassium Serum 4.2 meq/L 3.5-5.1 Normal (applies to non-numeric results) [facility]) Anion Gap 4 meq/L 8-16 Below low normal [facility] ( [facility]) Calcium Level 9.6 mg/dL 8.8-10.2 Normal (applies to non-numeric re sults) [facility]) ID Date Data Source [id number] 12/07/2019 10:38:00 AM EDT [facility]) Name Value Range Interpretation Code Description Data Madyson rce(s) Supporting Document(s) Prothrombin Time 13.1 s 12.5-14.3 Normal (applies to non-numeric results) [facility]) Partial Thromboplastin Time 34.0 s 24.2-38.5 Norm al (applies to non-numeric results) [facility]) Inr 0.98 Normal (applies to non-numeric resul ts) [facility]) THERAPUTIC HUMAN INR VALUES INDICATIONS NORMAL RANGES PROPHYLAXIS/TREATMENT OF: VENOUS THROMBOSIS 2.0-3.0 PULMONARY EMBOLISM 2.0-3.0 PREVENTION OF SYSTEMIC EMBOLISM FROM: TISSUE HEART VALVES 2.0-3.0 ACUTE MYOCARDIAL INFARCTION 2.0-3.0 VALVULAR HEART DISEASE 2.0-3.0 ATRIAL FIBRILLATION 2.0-3.0 MECHANICAL VALVES(HIGH RISK) 2.5-3.5 RECURRENT MYOCARDIAL INFARCTION 2.5-3.5 ID Date Data Source [id number] 12/07/2019 10:38:00 AM EDT [facility]) Name Value Range Interpretation Code Description Data Madyson rce(s) Supporting Document(s) aPTT in Platelet poor plasma by Coagulation assay Laboratory test res ult [facility] ([facility], ) Platelets [#/volume] in Blood by Automated count 281 10 150-450 Normal (applies to non-numeric results) [facility] ([facility]) ID Date Data Source [id number] 12/07/2019 09:16:00 AM EDT [facility] ([facility]) Name Value Range Interpretation Code Description Data Madyson rce(s) Supporting Document(s) PDFReport Laboratory test result [facility] ([facility]) FVC-Pre 1.53 L [facility] ([facility]) FVC-Pred 2.81 L [facility] ([facility]) FVC-%Pred-Pre 54 L MED[facility] ([facility]) FVC-LLN 2.15 L [facility] ([facility]) Fev1-Pre 1.21 L [facility] ([facility]) Fev1-Pred 2.13 L [facility] ([facility]) Fev1-%Pred-Pre 56 L MED[facility] ([facility]) Fev1-LLN 1.57 L [facility] ([facility]) Fev6-Pred 2.69 L [facility] ([facility]) Fev6-Pre 1.53 L [facility] ([facility]) Fev6-%Pred-Pre 56 L [facility] ([facility]) Fev6-LLN 2.04 L [facility] ([facility]) Vsj0xjl-Xsea 76 % [facility] ([facility]) Icv5ads-%Pred-Pre 103 % [facility] ([facility]) Qxg8gvk-Nsg 79 % [facility] ([facility]) Raf5bnd-Qjq 100 % [facility] ([facility]) Tuj0skr-Yuns 95 % [facility] ([facility]) Hqw0zey-ONN 66 % [facility] ([facility]) Gds9uxk-%Pred-Pre 104 % [facility] ([facility], ) FEFMax-Pred 5.42 L/E/sec MED[facility] ([facility], ) FEFMax-Pre 3.58 L/E/sec MED[facility] ([facility], ) FEFMax-%Pred-Pre 66 L/E/sec MED[facility] ([facility], ) FEFMax-LLN 3.78 L/E/sec [facility] ([facility], ) Bxt7769-Ove 1.06 L/E/sec [facility] ([facility], ) Rmm7964-%Pred-Pre 58 L/E/sec [facility] ([facility]) Ibi7628-Omdp 1.81 L/E/sec [facility] ([facility], ) ExpTime-Pre 5.52 sec [facility] ([facility], ) Dyk7800-ACA 0.63 L/E/sec [facility] ([facility], ) Pgk6cfu1-Cxcl 79 % [facility] ([facility], ) Rkm3gfs9-CEL 70 % [facility] ([facility], ) Mfo0zkr4-Cxx 79 % [facility] ([facility]) Jaw3ruq8-%Pred-Pre 99 % [facility] ([facility]) ID Date Data Source MAGNESIUM LEVEL 11/27/2019 04:24:18 AM EDT [facility]) Name Value Range Interpretation Code Description Data Madyson rce(s) Supporting Document(s) 2.0 MAGNESIUM LEVEL eCW1 ([facility]) ID Date Data Source NT-PRO BNP 11/27/2019 04:24:14 AM EDT eCW (formerly [facility]) Name Value Range Interpretation Code Description Data Madyson rce(s) Supporting Document(s) 138 NT-PRO BNP eCW1 ([facility]) ID Date Data Source CBC with Differential 11/27/2019 04:24:09 AM EDT W ([facility]) Name Value Range Interpretation Code Description Data Madyson rce(s) Supporting Document(s) 11.0 WHITE BLOOD COUNT eCW1 ([facility]) 3.76 RED BLOOD COUNT eCW1 ([facility]) 34.7 HEMATOCRIT eCW1 ([facility]) 10.8 HEMOGLOBIN eCW1 ([facility]) 28.7 MEAN CORPUSCULAR HEMOGLOBIN eC W1 (Formerly [facility]) 31.1 MEAN CORPUSCULAR HGB CONC eCW1 (Formerly [facility]) 92.3 MEAN CORPUSCULAR VOLUME eCW1 ( Formerly [facility]) 276 PLATELET COUNT, AUTOMATED eCW1 ([facility]ly [facility]) 14.3 RED CELL DISTRIBUTION WIDTH eC W1 ([facility]ly [facility]) 61.9 NEUTROPHILS % eCW1 ([facility]ly [facility]) 7.9 MONO % eCW1 ([facility]ly [facility]) 21.6 LYMPH % eCW1 ([facility]ly [facility]) 7.8 EOS % eCW1 ([facility]) 6.8 NEUTROPHILS # eCW1 ([facility]ly [facility]) 0.4 BASO % eCW1 ([facility]) 2.4 LYMPH # eCW1 ([facility]) 0.9 MONO # eCW1 ([facility]) 0.9 EOS # eCW1 ([facility]) 0.0 BASO # eCW1 ([facility]) Procedure Social History Code Duration Value Status Description Data Source(s ) Smoking 01/11/2020 12:00:00 AM EST Patient is a former smoker completed Patient is a former smoker [facility] ([facility], ) Smoking 12/06/2019 12:00:00 AM EDT Former Smoker completed Former Smoker eCW1 ([facility]ly [facility]) Smoking 12/06/2019 12:00:00 AM EDT Former Smoker completed Former Smoker eCW1 (Formerly [facility]) Smoking 12/06/2019 12:00:00 AM EDT Former Smoker completed Former Smoker eCW1 ([facility]ly [facility]) Smoking 12/06/2019 12:00:00 AM EDT Former Smoker completed Former Smoker eCW1 ([facility]ly [facility]) Smoking 12/06/2019 12:00:00 AM EDT Former Smoker completed Former Smoker eCW1 ([facility]ly [facility]) Smoking 12/06/2019 12:00:00 AM EDT Former Smoker completed Former Smoker eCW1 ([facility]ly [facility]) Smoking 12/06/2019 12:00:00 AM EDT Former Smoker completed Former Smoker eCW1 ([facility]ly [facility]) Smoking 12/06/2019 12:00:00 AM EDT Former Smoker completed Former Smoker eCW1 ([facility]ly [facility]) Smoking 12/06/2019 12:00:00 AM EDT Former Smoker completed Former Smoker eCW1 ([facility]ly [facility]) Smoking 12/06/2019 12:00:00 AM EDT Former Smoker completed Former Smoker eCW1 ([facility]ly [facility]) Smoking 12/06/2019 12:00:00 AM EDT Former Smoker completed Former Smoker eCW1 ([facility]ly [facility]) Smoking 12/06/2019 12:00:00 AM EDT Former Smoker completed Former Smoker eCW1 ([facility]ly [facility]) Smoking 12/06/2019 12:00:00 AM EDT Former Smoker completed Former Smoker eCW1 ([facility]ly [facility]) Smoking 12/06/2019 12:00:00 AM EDT Former Smoker completed Former Smoker eCW1 ([facility]ly [facility]) Smoking 12/06/2019 12:00:00 AM EDT Former Smoker completed Former Smoker eCW1 ([facility]ly [facility]) Smoking 12/06/2019 12:00:00 AM EDT Former Smoker completed Former Smoker eCW1 ([facility]ly [facility]) Smoking 11/27/2019 12:00:00 AM EDT Former Smoker completed Former Smoker eCW1 ([facility]ly [facility]) Smoking 08/04/2019 12:00:00 AM EDT Former Smoker completed Former Smoker eCW1 ([facility]ly [facility]) Smoking 08/04/2019 12:00:00 AM EDT Former Smoker completed Former Smoker eCW1 ([facility]ly [facility]) Smoking 08/04/2019 12:00:00 AM EDT Former Smoker completed Former Smoker eCW1 ([facility]ly [facility]) Smoking 07/28/2019 12:34:53 PM EDT Ex-smoker (finding) complet ed Ex-smoker (finding) WES (Bebeto [facility]fadden [facility]) Smoking 05/22/2019 05:14:12 PM EDT Ex-smoker (finding) complet ed Ex-smoker (finding) WES (Bebeto Mcfadden [facility]) Smoking 05/22/2019 05:06:57 PM EDT Ex-smoker (finding) complet ed Ex-smoker (finding) WES (Bebeto Mcfadden [facility]) Smoking 05/22/2019 04:59:57 PM EDT Ex-smoker (finding) complet ed Ex-smoker (finding) WES (Bebeto Mcfadden [facility]) Smoking 05/22/2019 04:50:10 PM EDT Ex-smoker (finding) complet ed Ex-smoker (finding) WES (Bebeto Mcfadden MD [facility]) Smoking 05/22/2019 04:17:00 PM EDT Ex-smoker (finding) complet ed Ex-smoker (finding) WES (Bebeto Mcfadden [facility]) Smoking 05/22/2019 04:03:26 PM EDT Ex-smoker (finding) complet ed Ex-smoker (finding) WES (Bebeto Mcfadden [facility]) Smoking 05/22/2019 03:50:28 PM EDT Ex-smoker (finding) complet ed Ex-smoker (finding) WES (Bebeto Mcfadden [facility]) Vital Signs ID Date Data Source UNK Name Value Range Interpretation Code Description Data Source(s) Body surface area Derived from formula 1.67 m2 1.67 m2 [facility] ([facility]) Body weight 64.865 kg 64.865 kg [facility] ([facility] [place] body weight 110 [lb_av] 110 [lb_av] MED[facility] T ([facility]) Body mass index (BMI) [Ratio] 25.7 kg/m2 25.7 k g/m2 [facility] ([facility]) Body weight 143.00 [lb_av] 143.00 [lb_av] [facility] T ([facility]) Body height 62.5 [in_i] 62.5 [in_i] [facility] ([facility]) 5'2.50" Oxygen saturation in Arterial blood by Pulse oximetry 97 % 97 % [facility] ([facility]) Heart rate 97 /min 97 /min [facility] ([facility]) Diastolic blood pressure 70 mm[Hg] 70 mm[Hg] [facility] ([facility]) Systolic blood pressure 122 mm[Hg] 122 mm[Hg] [facility] ([facility]) Body surface area Derived from formula 1.67 m2 1.67 m2 [facility] ([facility]) Body weight 64.638 kg 64.638 kg [facility] ([facility]) [place] body weight 110 [lb_av] 110 [lb_av] [facility] ([facility]) Body mass index (BMI) [Ratio] 25.6 kg/m2 25.6 k g/m2 [facility] ([facility]) Body weight 142.50 [lb_av] 142.50 [lb_av] [facility] ([facility]) Body height 62.5 [in_i] 62.5 [in_i] [facility] ([facility]) 5'2.50" Body temperature 96.8 [degF] 96.8 [degF] [facility] ([facility]) Oxygen saturation in Arterial blood by Pulse oximetry 96 % 96 % [facility] ([facility]) Heart rate 100 /min 100 /min [facility] ([facility]) Diastolic blood pressure 64 mm[Hg] 64 mm[Hg] [facility] ([facility]) Systolic blood pressure 122 mm[Hg] 122 mm[Hg] [facility] ([facility]) Body weight 65.999 kg 65.999 kg [facility] ([facility]) [place] body weight 110 [lb_av] 110 [lb_av] [facility] T ([facility]) Body mass index (BMI) [Ratio] 26.2 kg/m2 26.2 k g/m2 [facility] ([facility]) Body weight 145.50 [lb_av] 145.50 [lb_av] [facility] ([facility]) Body height 62.5 [in_i] 62.5 [in_i] [facility] ([facility], ) 5'2.50" Oxygen saturation in Arterial blood by Pulse oximetry 95 % 95 % [facility] ([facility], ) Heart rate 87 /min 87 /min [facility] ([facility], ) Diastolic blood pressure 60 mm[Hg] 60 mm[Hg] [facility] ([facility], ) Systolic blood pressure 106 mm[Hg] 106 mm[Hg] M EDENT ([facility], ) Diastolic blood pressure 74 mm[Hg] 74 mm[Hg] eCW1 ([facility]) Systolic blood pressure 126 mm[Hg] 126 mm[Hg] e CW1 ([facility]) Body temperature 97.1 [degF] 97.1 [degF] eCW1 ( [facility]) Respiratory rate 18 /min 18 /min eCW1 ([facility]) Heart rate 90 /min 90 /min eCW1 ([facility]) Body mass index (BMI) [Ratio] 26.42 kg/m2 26.42 kg/m2 W1 ([facility]) Body height 62.5 [in_i] 62.5 [in_i] eCW1 ([facility]) Body weight 146.8 [lb_av] 146.8 [lb_av] eCW1 ([facility]) Diastolic blood pressure 66 mm[Hg] 66 mm[Hg] eCW1 ([facility]) Systolic blood pressure 110 mm[Hg] 110 mm[Hg] e CW1 ([facility]) Body temperature 97.1 [degF] 97.1 [degF] eCW1 ( [facility]) Respiratory rate 18 /min 18 /min eCW1 ([facility]) Heart rate 88 /min 88 /min eCW1 ([facility]) Body mass index (BMI) [Ratio] 26.85 kg/m2 26.85 kg/m2 W1 ([facility]) Body height 62.5 [in_i] 62.5 [in_i] eCW1 ([facility]) Body weight 149.2 [lb_av] 149.2 [lb_av] eCW1 ([facility]) Diastolic blood pressure 66 mm[Hg] 66 mm[Hg] eCW1 ([facility]) Systolic blood pressure 118 mm[Hg] 118 mm[Hg] e CW1 ([facility]) Body temperature 97.5 [degF] 97.5 [degF] eCW1 ( [facility]) Respiratory rate 18 /min 18 /min eCW1 ([facility]) Heart rate 100 /min 100 /min eCW1 ([facility]) Body mass index (BMI) [Ratio] 28.00 kg/m2 28.00 kg/m2 eCW1 ([facility]) Body height 62.5 [in_i] 62.5 [in_i] eCW1 ([facility]) Body weight 155.6 [lb_av] 155.6 [lb_av] eCW1 ([facility]) Diastolic blood pressure 60 mm[Hg] 60 mm[Hg] eCW1 ([facility]) Systolic blood pressure 112 mm[Hg] 112 mm[Hg] e CW1 ([facility]) Body temperature 98.3 [degF] 98.3 [degF] eCW1 ( [facility]) Respiratory rate 18 /min 18 /min eCW1 ([facility]) Heart rate 96 /min 96 /min eCW1 ([facility]) Body mass index (BMI) [Ratio] 28.11 kg/m2 28.11 kg/m2 eCW1 ([facility]) Body height 62.5 [in_us] 62.5 [in_us] eCW1 ([facility]) Body weight Measured 156.2 [lb_av] 156.2 [lb_av ] eCW1 ([facility]) Respiratory rate 16 /min 16 /min MED[facility] ( [facility]) Heart rate 64 /min 64 /min MED[facility] ([facility]) Diastolic blood pressure 60 mm[Hg] 60 mm[Hg] [facility] ([facility]) Systolic blood pressure 110 mm[Hg] 110 mm[Hg] M EDENT ([facility], ) Respiratory rate 16 /min 16 /min MED[facility] ( [facility] ) Heart rate 76 /min 76 /min MED[facility] ([facility], ) Diastolic blood pressure 80 mm[Hg] 80 mm[Hg] [facility] ([facility] ) Systolic blood pressure 110 mm[Hg] 110 mm[Hg] M EDENT ([facility], ) Patient Treatment Plan of Care Planned Activity Planned Date Details Description Data Source (s) Acetaminophen 325 MG / Hydrocodone Bitartrate 5 MG Ora l Tablet 02/02/2020 12:00:00 AM EST eCW1 ([facility]) Acetaminophen 325 MG / Hydrocodone Bitartrate 5 MG Ora l Tablet 02/02/2020 12:00:00 AM EST eCW1 ([facility]) Acetaminophen 325 MG / Hydrocodone Bitartrate 5 MG Ora l Tablet 02/02/2020 12:00:00 AM EST eCW1 ([facility]) Acetaminophen 325 MG / Hydrocodone Bitartrate 5 MG Ora l Tablet 02/02/2020 12:00:00 AM EST eCW1 ([facility]) Acetaminophen 325 MG / Hydrocodone Bitartrate 5 MG Ora l Tablet 02/02/2020 12:00:00 AM EST eCW1 ([facility]) Acetaminophen 325 MG / Hydrocodone Bitartrate 5 MG Ora l Tablet 02/02/2020 12:00:00 AM EST eCW1 ([facility]) Acetaminophen 325 MG / Hydrocodone Bitartrate 5 MG Ora l Tablet 02/02/2020 12:00:00 AM EST eCW1 ([facility]) Acetaminophen 325 MG / Hydrocodone Bitartrate 5 MG Ora l Tablet 02/02/2020 12:00:00 AM EST eCW1 ([facility]) Acetaminophen 325 MG / Hydrocodone Bitartrate 5 MG Ora l Tablet 01/02/2020 12:00:00 AM EST eCW1 ([facility]) Acetaminophen 325 MG / Hydrocodone Bitartrate 5 MG Ora l Tablet 01/02/2020 12:00:00 AM EST eCW1 ([facility]) Acetaminophen 325 MG / Hydrocodone Bitartrate 5 MG Ora l Tablet 12/15/2019 12:00:00 AM EDT eCW1 (Formerly [facility]) Acetaminophen 325 MG / Hydrocodone Bitartrate 5 MG Ora l Tablet 12/15/2019 12:00:00 AM EDT eCW1 (Formerly [facility]) Acetaminophen 325 MG / Hydrocodone Bitartrate 5 MG Ora l Tablet 12/15/2019 12:00:00 AM EDT eCW1 (Formerly [facility]) Acetaminophen 325 MG / Hydrocodone Bitartrate 5 MG Ora l Tablet 12/15/2019 12:00:00 AM EDT eCW1 (Formerly [facility]) Albuterol Sulfate 108 (90 Base) MCG/ACT 11/27/2019 12:00:00 AM EDT eCW1 (Formerly [facility]) Prednisone 20 MG Oral Tablet 11/27/2019 12:00:00 AM EDT eCW1 (Formerly [facility]) besifloxacin 6 MG/ML Ophthalmic Suspension [Besivance] 06/03/2018 12:00:00 AM EDT [facility]ES (Bebeto Mcfadden MD [facility]) BromSite 0.075% Ophthalmic Solution 06/03/2018 12:00:00 AM EDT [facility] (Bebeto Mcfadden MD [facility]) prednisolone acetate 10 MG/ML Ophthalmic Suspension [P red Forte] 06/03/2018 12:00:00 AM EDT [facility]ES (Bebeto Mcfadden MD [facility])
--- NOTE | 2020-03-11 12:08 | REP ---
INDICATION: DYSPNEA/COUGH. COMPARISON: Comparison chest x-ray 27 February 2020. TECHNIQUE: Portable upright AP chest radiograph. FINDINGS: There is a large pleural opacity containing a few air bubbles in the right lower hemithorax. There is pleural thickening in a rind like fashion over the superior and lateral aspect of the right lung. There are few air fluid levels in the right lower lateral chest. These findings are similar to the February 27, 2020 study. There is a right lateral rib fracture noted. this was not apparent previously and raises the question of pathologic fracture. Increased interstitial markings are noted diffusely on the left and in the aerated right lung. These appear somewhat more prominent.. IMPRESSION: Interstitial markings are diffusely more prominent. Pleural thickening and loculated hydropneumothorax on the right persists essentially unchanged. Interval right lateral rib fracture question pathologic.. <Electronically signed by Schuyler Galeano > 03/11/20 [id number]
--- OUTSIDE RECORDS SUMMARY | 2020-03-11 12:08 | CCD ---
Author Author [facility] Organization [facility] Address Unknown Phone Unavailable Care Team Providers [employer] Name Role Phone Jasiel Dela Cruz MD [...] Unavailable Jasiel Dela Cruz MD Unavailable Unavailable Jaseil Dela Cruz MD Unavailable Unavailable Jasiel Dela [...] Unavailable Briana Hughes MD Unavailable Unavailable Matt, rBiana WILDER Unavailable Unavailable Matt, Briana WILDER Unavailable [...] is protected by Article 27-F of the [facility] Public Health law. If you continue you may have access to information: Regarding HIV / AIDS; Provided by facilities licensed or operated by the [facility] Office of Mental Health; or Provided by the [facility] Office for People With Developmental Disabilities. If such information is present, then the following [facility] mandated warning applies: This information has been [...] law may result in a fine or fci sentence or both. A general authorization for the release of medical or other information is NOT sufficient authorization for further disc losure. Allergies and Adverse Reactions Type Description Substance Reaction Status Data Source(s ) aspirin Aspirin Aspirin Hives Active eCW1 ([facility]) Nickel Nickel Nickel Hives Active eCW1 ([facility]) Encounters Encounter Providers Location Date Indications Data Source(s ) Unknown [address] [facility] [address] 03/05/2020 12:00:00 AM EST eCW1 ([facility]) Unknown [address] [facility] [address] 03/04/2020 12:00:00 AM EST eCW1 ([facility]) Unknown [address] [facility] [address] 03/04/2020 12:00:00 AM EST [facility]1 [facility]) Unknown [address] [facility] [address] 02/27/2020 12:00:00 AM EST eCW1 ([facility]) Unknown [address] [facility] [address] 02/21/2020 12:00:00 AM EST eCW1 ([facility]) Unknown [address] [facility] [address] 02/21/2020 12:00:00 AM EST eCW1 ([facility]) Unknown [address] [facility] [address] 02/14/2020 12:00:00 AM EST eCW1 ([facility]) Unknown [address] [facility] [address] 02/02/2020 12:00:00 AM EST eCW1 ([facility]) Outpatient Referrer: Jasiel Dela Cruz MD SJP.RICARDA-SJP.RICARDA 04/2019 12:00:00 AM EST - 01/25/2020 08:49:11 AM EST [facility] Unknown [address] [facility] [address] 01/24/2020 12:00:00 AM EST eCW1 ([facility]) Outpatient Attender: Briana Hawk/Víctor/Garrison/Chandler ndcarlos 01/11/2020 01:30:00 PM EST MEDENT ([facility] Outpatient Attender: Briana Hawk/Víctor/Garrison/Chandler ndcarlos 01/03/2020 12:30:00 PM EST MEDENT ([facility]) Unknown [address] [facility] [address] 01/02/2020 12:00:00 AM EST eCW1 ([facility]) Outpatient Admitter: Briana Hughes MDReferrer: Briana palafox MD 12/27/2019 12:00:00 AM EST Malignant neoplasm of unspecified part o f unspecified bronchus or lung [facility] Malignant neoplasm of unspecified part o f unspecified bronchus or lung Unknown [address] [facility] [address] 12/26/2019 12:00:00 AM EST eCW1 ([facility]) Unknown [address] [facility] [place] [address] 12/22/2019 12:00:00 AM EDT eCW1 ([facility]) Unknown [address] [facility] [place] [address] 12/20/2019 12:00:00 AM EDT eCW1 ([facility]) Unknown [address] [facility] [place] [address] 12/15/2019 12:00:00 AM EDT eCW1 ([facility]) Outpatient Attender: Jasiel Dela Cruz MD SJP.RICARDA-SJP.RICARDA 11/23 12:00:00 AM EDT - 12/13/2019 11:05:43 AM EDT [facility] Outpatient Attender: Briana Hawk/Víctor/Garrison/Chandler browne 12/07/2019 09:30:00 AM EDT MEDENT ([facility]) Office Visit, Est Pt., Level 3 PC [address] [place] [address] 12/06/2019 12:00:00 AM EDT eCW1 ([facility]) Unknown [address] [facility] [address] 12/06/2019 12:00:00 AM EDT eCW1 ([facility]) Office Visit, Est Pt., Level 4 PC [address] [place] [address] 11/27/2019 12:00:00 AM EDT eCW1 ([facility]) Unknown [address] [facility] [address] 11/23/2019 12:00:00 AM EDT eCW1 ([facility]) Outpatient Attender: Carmen ALVARENGA [facility] 10/04/2019 08:15:00 AM EDT MEDENT ([facility] ) Unknown [address] [facility] [address] 08/04/2019 12:00:00 AM EDT eCW1 ([facility]) Outpatient<td ID="encounterTypeDescripti onID0">1 Year Follow-Up</td><td>Alice De Jesus DO</td><td>Bebeto Valdivia MD [facility]</td><td>07/28/2019</td><td><content ID="encounterDiagnosisID0-0">Diabetes Mellitus Type 2 Without Complication</content>, <content ID="encounterDiagnosisID0-1">Dry Eye Syndrome</content>, <content ID="encounterDiagnosisID0-2">Pseudophakia</content>, <content ID="encounterDiagnosisID0-3">Assessment of Taking Medication For Diabetes Long- term Use of Oral Hypoglycemics</content>, <content ID="encounterDiagnosisID0- 4">Vitreous Disorders Degeneration</content></td> Attender: ALICE Vazquez MD [facility] 07/28/2019 07:20:00 AM EDT - 07/28/2019 07:47:00 AM EDT PseudophakiaVitreous Disorders Degenerat ionAssessment of Taking Medication For Diabetes Long-term Use of Oral HypoglycemicsDry Eye SyndromeDiabetes Mellitus Type 2 Without Complication [facility] (Bebeto Mcfadden MD [facility]) Pseudophakia Vitreous Disorders Degeneration Assessment of Taking Medication For Diab etes Long-term Use of Oral Hypoglycemics Dry Eye Syndrome Diabetes Mellitus Type 2 Without Complic ation Outpatient [address] [facility] [address] 07/20/2019 12:00:00 AM EDT eCW1 ([facility]) [facility] [place] [address] [facility] [address] 07/18/2019 12:00:00 AM EDT eCW1 ([facility]) [address] [address] 07/10/2019 12:00:00 AM EDT eCW1 ([facility]) [address] [address] 07/10/2019 12:00:00 AM EDT eCW1 ([facility]) [address] [address] 07/10/2019 12:00:00 AM EDT eCW1 ([facility]) Outpatient Attender: Carmen ALVARENGA [facility] n 06/27/2019 09:15:00 AM EDT MEDENT ([facility], ) [address] [address] 05/18/2019 12:00:00 AM EDT eCW1 ([facility]) Outpatient 05/09/2019 11:06:00 AM EDT [facility] [address] [address] 03/24/2019 12:00:00 AM EST eCW1 ([facility]) Outpatient Attender: Carmen ALVARENGA [facility] n 03/23/2019 10:00:00 AM EST MEDENT ([facility], ) [address] [address] 02/23/2019 12:00:00 AM EST eCW1 ([facility]) [address] [address] 02/07/2019 12:00:00 AM EST eCW1 ([facility]) Outpatient Attender: Carmen ALVARENGA [facility] n 02/03/2019 07:45:00 AM EST MEDENT ([facility]) Immunizations Vaccine Date Status Description Data Source(s) New in 2011. IIV4 11/29/2019 02:34:00 PM EDT completed MEDENT ([facility]) influenza, recombinant, quadrIvalent,injectable, prese rvative free 11/27/2019 01:05:00 PM EDT completed eCW1 ([facility]) influenza, recombinant, quadrIvalent,injectable, prese rvative free 11/27/2019 01:05:00 PM EDT completed eCW1 ([facility]) influenza, recombinant, quadrIvalent,injectable, prese rvative free 11/27/2019 01:05:00 PM EDT completed eCW1 ([facility]) influenza, recombinant, quadrIvalent,injectable, prese rvative free 11/27/2019 01:05:00 PM EDT completed eCW1 ([facility]) influenza, recombinant, quadrIvalent,injectable, prese rvative free 11/27/2019 01:05:00 PM EDT completed eCW1 ([facility]) influenza, recombinant, quadrIvalent,injectable, prese rvative free 11/27/2019 01:05:00 PM EDT completed eCW1 ([facility]) influenza, recombinant, quadrIvalent,injectable, prese rvative free 11/27/2019 01:05:00 PM EDT completed eCW1 ([facility]) influenza, recombinant, quadrIvalent,injectable, prese rvative free 11/27/2019 01:05:00 PM EDT completed eCW1 ([facility]) influenza, recombinant, quadrIvalent,injectable, prese rvative free 11/27/2019 01:05:00 PM EDT completed eCW1 ([facility]) influenza, recombinant, quadrIvalent,injectable, prese rvative free 11/27/2019 01:05:00 PM EDT completed eCW1 ([facility]) influenza, recombinant, quadrIvalent,injectable, prese rvative free 11/27/2019 01:05:00 PM EDT completed eCW1 ([facility]) influenza, recombinant, quadrIvalent,injectable, prese rvative free 11/27/2019 01:05:00 PM EDT completed eCW1 ([facility]) influenza, recombinant, quadrIvalent,injectable, prese rvative free 11/27/2019 01:05:00 PM EDT completed eCW1 ([facility]) influenza, recombinant, quadrIvalent,injectable, prese rvative free 11/27/2019 01:05:00 PM EDT completed eCW1 ([facility]) influenza, recombinant, quadrIvalent,injectable, prese rvative free 11/27/2019 01:05:00 PM EDT completed eCW1 ([facility]) influenza, recombinant, quadrIvalent,injectable, prese rvative free 11/27/2019 01:05:00 PM EDT completed eCW1 ([facility]) influenza, recombinant, quadrIvalent,injectable, prese rvative free 11/27/2019 01:05:00 PM EDT completed eCW1 ([facility]) Medications Medication Brand Name Start Date Product Form Dose Route Admi nistrative Instructions Pharmacy Instructions Status Indications Reaction Description Data Source(s) Acetaminophen 325 MG / Hydrocodone Mariaelena trate 5 MG Oral Tablet Hydrocodone- Acetaminophen 5-325 MG Hydrocodone-Acetaminophen 5-325 MG 02/02/2020 12:00:00 AM EST 1.0 {tablet_as_needed} active Hydrocodone-Acetaminophen 5-325 MG eCW1 ([facility]) Acetaminophen 325 MG / Hydrocodone Mariaelena trate 5 MG Oral Tablet Hydrocodone- Acetaminophen 5-325 MG Hydrocodone-Acetaminophen 5-325 MG 02/02/2020 12:00:00 AM EST 1.0 {tablet_as_needed} active Hydrocodone-Acetaminophen 5-325 MG eCW1 ([facility]) Acetaminophen 325 MG / Hydrocodone Mariaelena trate 5 MG Oral Tablet Hydrocodone- Acetaminophen 5-325 MG Hydrocodone-Acetaminophen 5-325 MG 02/02/2020 12:00:00 AM EST 1.0 {tablet_as_needed} active Hydrocodone-Acetaminophen 5-325 MG eCW1 ([facility]) Acetaminophen 325 MG / Hydrocodone Mariaelena trate 5 MG Oral Tablet Hydrocodone- Acetaminophen 5-325 MG Hydrocodone-Acetaminophen 5-325 MG 02/02/2020 12:00:00 AM EST 1.0 {tablet_as_needed} active Hydrocodone-Acetaminophen 5-325 MG eCW1 ([facility]) Acetaminophen 325 MG / Hydrocodone Mariaelena trate 5 MG Oral Tablet Hydrocodone- Acetaminophen 5-325 MG Hydrocodone-Acetaminophen 5-325 MG 02/02/2020 12:00:00 AM EST 1.0 {tablet_as_needed} active Hydrocodone-Acetaminophen 5-325 MG eCW1 ([facility]) Acetaminophen 325 MG / Hydrocodone Mariaelena trate 5 MG Oral Tablet Hydrocodone- Acetaminophen 5-325 MG Hydrocodone-Acetaminophen 5-325 MG 02/02/2020 12:00:00 AM EST 1.0 {tablet_as_needed} active Hydrocodone-Acetaminophen 5-325 MG eCW1 ([facility]) Acetaminophen 325 MG / Hydrocodone Mariaelena trate 5 MG Oral Tablet Hydrocodone- Acetaminophen 5-325 MG Hydrocodone-Acetaminophen 5-325 MG 02/02/2020 12:00:00 AM EST 1.0 {tablet_as_needed} active Hydrocodone-Acetaminophen 5-325 MG eCW1 ([facility]) Acetaminophen 325 MG / Hydrocodone Mariaelena trate 5 MG Oral Tablet Hydrocodone- Acetaminophen 5-325 MG Hydrocodone-Acetaminophen 5-325 MG 02/02/2020 12:00:00 AM EST 1.0 {tablet_as_needed} active Hydrocodone-Acetaminophen 5-325 MG eCW1 ([facility]) Furosemide 20 MG Oral Tablet Furosemide 01/23/2020 12:00:00 AM EST ORAL active MEDENT ([facility], ) Acetaminophen 325 MG / Hydrocodone Bitartrate 5 MG Ora l Tablet Hydrocodone-Acetaminophen 01/11/2020 12:00:00 AM EST ORAL active MEDENT ([facility], ) Acetaminophen 325 MG / Hydrocodone Mariaelena trate 5 MG Oral Tablet Hydrocodone- Acetaminophen 5-325 MG Hydrocodone-Acetaminophen 5-325 MG 01/02/2020 12:00:00 AM EST 1.0 {tablet_as_needed} active Hydrocodone-Acetaminophen 5-325 MG eCW1 ([facility]) Acetaminophen 325 MG / Hydrocodone Mariaelena trate 5 MG Oral Tablet Hydrocodone- Acetaminophen 5-325 MG Hydrocodone-Acetaminophen 5-325 MG 01/02/2020 12:00:00 AM EST 1.0 {tablet_as_needed} active Hydrocodone-Acetaminophen 5-325 MG eCW1 ([facility]) Acetaminophen 325 MG / Hydrocodone Mariaelena trate 5 MG Oral Tablet Hydrocodone- Acetaminophen 5-325 MG Hydrocodone-Acetaminophen 5-325 MG 12/15/2019 12:00:00 AM EDT 1.0 {tablet_as_needed} active Hydrocodone-Acetaminophen 5-325 MG eCW1 ([facility]) Acetaminophen 325 MG / Hydrocodone Mariaelena trate 5 MG Oral Tablet Hydrocodone- Acetaminophen 5-325 MG Hydrocodone-Acetaminophen 5-325 MG 12/15/2019 12:00:00 AM EDT 1.0 {tablet_as_needed} active Hydrocodone-Acetaminophen 5-325 MG eCW1 ([facility]) Acetaminophen 325 MG / Hydrocodone Mariaelena trate 5 MG Oral Tablet Hydrocodone- Acetaminophen 5-325 MG Hydrocodone-Acetaminophen 5-325 MG 12/15/2019 12:00:00 AM EDT 1.0 {tablet_as_needed} active Hydrocodone-Acetaminophen 5-325 MG eCW1 ([facility]) Acetaminophen 325 MG / Hydrocodone Mariaelena trate 5 MG Oral Tablet Hydrocodone- Acetaminophen 5-325 MG Hydrocodone-Acetaminophen 5-325 MG 12/15/2019 12:00:00 AM EDT 1.0 {tablet_as_needed} active Hydrocodone-Acetaminophen 5-325 MG eCW1 ([facility]) 30 ACTUAT fluticasone furoate 0.1 MG/ACT UAT / vilanterol 0.025 MG/ACTUAT Dry Powder Inhaler [Breo] Breo Ellipta 12/07/2019 12:00:00 AM EDT active MEDENT ([facility]) Prednisone 20 MG Oral Tablet PredniSONE 20 MG PredniSONE 20 MG 11/27/2019 12:00:00 AM EDT 1.0 {tablet} active Pr edniSONE 20 MG eCW1 ([facility]) Albuterol Sulfate 108 (90 Base) MCG/ACT UNK 11/27/2019 12: 00:00 AM EDT 1.0 {puff_as_needed} active Albuterol Sulfa te 108 (90 Base) MCG/ACT eCW1 ([facility]) Prednisone 20 MG Oral Tablet PredniSONE 20 MG PredniSONE 20 MG 11/27/2019 12:00:00 AM EDT 1.0 {tablet} active Pr edniSONE 20 MG eCW1 ([facility]) Albuterol Sulfate 108 (90 Base) MCG/ACT UNK 11/27/2019 12: 00:00 AM EDT 1.0 {puff_as_needed} active Albuterol Sulfa te 108 (90 Base) MCG/ACT eCW1 ([facility]) Prednisone 20 MG Oral Tablet PredniSONE 20 MG PredniSONE 20 MG 11/27/2019 12:00:00 AM EDT 1.0 {tablet} active Pr edniSONE 20 MG eCW1 ([facility]) Prednisone 20 MG Oral Tablet PredniSONE 20 MG PredniSONE 20 MG 11/27/2019 12:00:00 AM EDT 1.0 {tablet} active Pr edniSONE 20 MG eCW1 ([facility]) Prednisone 20 MG Oral Tablet PredniSONE 20 MG PredniSONE 20 MG 11/27/2019 12:00:00 AM EDT 1.0 {tablet} active Pr edniSONE 20 MG eCW1 ([facility]) Prednisone 20 MG Oral Tablet PredniSONE 20 MG PredniSONE 20 MG 11/27/2019 12:00:00 AM EDT 1.0 {tablet} active Pr edniSONE 20 MG eCW1 ([facility]) Prednisone 20 MG Oral Tablet PredniSONE 20 MG PredniSONE 20 MG 11/27/2019 12:00:00 AM EDT 1.0 {tablet} active Pr edniSONE 20 MG eCW1 ([facility]) Prednisone 20 MG Oral Tablet PredniSONE 20 MG PredniSONE 20 MG 11/27/2019 12:00:00 AM EDT 1.0 {tablet} active Pr edniSONE 20 MG eCW1 ([facility]) Prednisone 20 MG Oral Tablet PredniSONE 20 MG PredniSONE 20 MG 11/27/2019 12:00:00 AM EDT 1.0 {tablet} active Pr edniSONE 20 MG eCW1 ([facility]) Albuterol Sulfate 108 (90 Base) MCG/ACT UNK 11/27/2019 12: 00:00 AM EDT 1.0 {puff_as_needed} active Albuterol Sulfa te 108 (90 Base) MCG/ACT eCW1 ([facility]) Albuterol Sulfate 108 (90 Base) MCG/ACT UNK 11/27/2019 12: 00:00 AM EDT 1.0 {puff_as_needed} active Albuterol Sulfa te 108 (90 Base) MCG/ACT eCW1 ([facility]) Prednisone 20 MG Oral Tablet PredniSONE 20 MG PredniSONE 20 MG 11/27/2019 12:00:00 AM EDT 1.0 {tablet} active Pr edniSONE 20 MG eCW1 ([facility]) Prednisone 20 MG Oral Tablet PredniSONE 20 MG PredniSONE 20 MG 11/27/2019 12:00:00 AM EDT 1.0 {tablet} active Pr edniSONE 20 MG eCW1 ([facility]) Albuterol Sulfate 108 (90 Base) MCG/ACT UNK 11/27/2019 12: 00:00 AM EDT 1.0 {puff_as_needed} active Albuterol Sulfa te 108 (90 Base) MCG/ACT eCW1 ([facility]) Albuterol Sulfate 108 (90 Base) MCG/ACT UNK 11/27/2019 12: 00:00 AM EDT 1.0 {puff_as_needed} active Albuterol Sulfa te 108 (90 Base) MCG/ACT eCW1 ([facility]) Albuterol Sulfate 108 (90 Base) MCG/ACT UNK 11/27/2019 12: 00:00 AM EDT 1.0 {puff_as_needed} active Albuterol Sulfa te 108 (90 Base) MCG/ACT eCW1 ([facility]) Prednisone 20 MG Oral Tablet PredniSONE 20 MG PredniSONE 20 MG 11/27/2019 12:00:00 AM EDT 1.0 {tablet} active Pr edniSONE 20 MG eCW1 ([facility]) Prednisone 20 MG Oral Tablet PredniSONE 20 MG PredniSONE 20 MG 11/27/2019 12:00:00 AM EDT 1.0 {tablet} active Pr edniSONE 20 MG eCW1 ([facility]) Prednisone 20 MG Oral Tablet PredniSONE 20 MG PredniSONE 20 MG 11/27/2019 12:00:00 AM EDT 1.0 {tablet} active Pr edniSONE 20 MG eCW1 ([facility]) Prednisone 20 MG Oral Tablet PredniSONE 20 MG PredniSONE 20 MG 11/27/2019 12:00:00 AM EDT 1.0 {tablet} active Pr edniSONE 20 MG eCW1 ([facility]) Albuterol Sulfate 108 (90 Base) MCG/ACT UNK 11/27/2019 12: 00:00 AM EDT 1.0 {puff_as_needed} active Albuterol Sulfa te 108 (90 Base) MCG/ACT eCW1 ([facility]) Albuterol Sulfate 108 (90 Base) MCG/ACT UNK 11/27/2019 12: 00:00 AM EDT 1.0 {puff_as_needed} active Albuterol Sulfa te 108 (90 Base) MCG/ACT eCW1 ([facility]) Albuterol Sulfate 108 (90 Base) MCG/ACT UNK 11/27/2019 12: 00:00 AM EDT 1.0 {puff_as_needed} active Albuterol Sulfa te 108 (90 Base) MCG/ACT eCW1 ([facility]) Prednisone 20 MG Oral Tablet PredniSONE 20 MG PredniSONE 20 MG 11/27/2019 12:00:00 AM EDT 1.0 {tablet} active Pr edniSONE 20 MG eCW1 ([facility]) Prednisone 20 MG Oral Tablet PredniSONE 20 MG PredniSONE 20 MG 11/27/2019 12:00:00 AM EDT 1.0 {tablet} active Pr edniSONE 20 MG eCW1 ([facility]) gabapentin 100 MG Oral Capsule Gabapentin 02/03/2019 12:00:00 AM EST ORAL active MEDENT ([facility]) prednisolone acetate 10 MG/ML Ophthalmic Suspension [Pred Forte] Pred Forte 1% Ophthalmic Suspension Pred Forte 1% Ophthalmic Suspension 06/03/2018 12:00:0 0 AM EDT aborted predniso lone acetate 10 MG/ML Ophthalmic Suspension [Pred Forte] W[facility] (Bebeto Mcfadden MD [facility]) besifloxacin 6 MG/ML Ophthalmic Suspensi on [Besivance] Besivance 0.6% Ophthalmic Suspension Besivance 0.6% Ophthalmic Suspension 06/03/2018 12:00:00 AM EDT aborted besifloxacin 6 MG/ML Ophthalmic Suspension [Besivance] [facility] (Bebeto Mcfadden MD [facility]) BromSite 0.075% Ophthalmic Solution BromSite 0.075% Ophthalm ic Solution 06/03/2018 12:00:00 AM EDT aborted bromfenac 0.75 MG/ML Ophthalmic Solution [Bromsite] [facility] (Bebeto Mcfadden MD [facility]) Insurance Providers Payer name Policy type / Coverage type Policy ID Covered constitution party ID Covered constitution party's relationship to toscano Policy [place] Plan Information MEDICARE COMPLETE [id number] SP [id number] MEDICARE COMPLETE[place] [id number] S [id number] [facility] MEDICARE COMPLETE G [id number] Self [id number] [facility] [id number] Self [id number] MEDICARE COMPLETE [id number] SP [id number] [facility] MEDICAID [id number] [place] [id number] MEDICARE COMPLETE [id number] SP [id number] MEDICARE COMPLETE [id number] SP [id number] ANSI-Medicare Part B [id number] ANSI-Medicare Part B [id number] Medicare Solutions Commercial [id number] Self [id number] ANSI-Medicare Part B [id number] ANSI-Medicare Part B [id number] ANSI-Medicare Part B [id number] ANSI-Medicare Part B [id number] ANS-Medicare Part B [id number] ANSI-Medicare Part B [id number] ANSI-Medicare Part B [id number] ANSI-Medicare Part B [id number] ANS-Medicare Part B [id number] MEDICARE COMPLETE [id number] Problems, Conditions, and Diagnoses Code Display Name Description Problem Type Effective Dates Data Source(s) F43.21 [id number] Situational depression Problem 03/05/2020 12 :00:00 AM EST eCW1 ([facility]) F32.9 [id number] Reactive depression (situational) Problem 03/05/2020 12:00:00 AM EST eCW1 ([facility]) G89.3 [id number] Pain, cancer Problem 12/15/2019 12:00:00 AM EDT eCW1 ([facility]) J84.9 [id number] Interstitial lung disease Problem 11/28/2019 12:00:00 AM EDT eCW1 ([facility]) K21.9 Gastroesophageal reflux disease Gastroesophageal reflu x disease Problem 11/27/2019 12:00:00 AM EDT eCW1 ([facility]) G89.29 [id number] Other chronic pain Problem 07/20/2019 12:00: 00 AM EDT eCW1 ([facility]) E78.2 [id number] Mixed hyperlipidemia Problem 07/19/2019 12:0 0:00 AM EDT eCW1 ([facility]) I10 Essential hypertension Essential (primary) hypertensio n Problem 03/24/2019 12:00:00 AM EST eCW1 ([facility]) I10 Essential hypertension Essential (primary) hypertensio n Problem 03/24/2019 12:00:00 AM EST eCW1 ([facility]) I06.0 Rheumatic aortic stenosis Rheumatic aortic stenosis Di agnosis 01/25/2020 07:57:25 AM [facility] Z01.810 Encounter for preprocedural cardiovascul ar examination Encounter for preprocedural cardiovascul Diagnosis 01/25/2020 07:57:[address] [facility] C34.90 Malignant neoplasm of unspecified part o f unspecified bronchus or lung Malignant neoplasm of unspecified part of unspecified bronchus or lung Diagnosis 12/27/2019 02:06:00 PM [facility] Surgeries/Procedures Procedure Description Date Indications Data Source(s) Bronchoscopy W/Brushing Or Protected Brushings 020 12:00:00 AM EST MEDENT ([facility], ) Bronchoscopy W/Bronchial Alveolar Lavage 12/27/2019 12 :00:00 AM EST MEDENT ([facility], ) Bronchoscopy W/Transbronchial Lung Biopsy 12/27/2019 1 2:00:00 AM EST [facility] ([facility], ) With Endobronchial Ultrasound Guided 12/27/2019 12:00: 00 AM EST [facility] ([facility], ) Spirometry 12/07/2019 12:00:00 AM EDT M EDENT ([facility], ) Aerosol Or Vapor Inhalations 12/07/2019 12:00:00 AM ED T [facility] ([facility] ) Immunization: Flublok Quadrivalent (18 years & older) 0.5mL IM (Influenza) 11/27/2019 12:00:00 AM EDT eCW1 ([facility]) History of the retina was normal 07/08/2018 History of the retina was normal 07/08/2018 07/28/2019 12:00:00 AM EDT WES (Bartolo Mcfadden MD [facility]) Currently wearing eyeglasses Currently wearing eyeglasses 12:00:00 AM EDT WES (Bebeto Mcfadden MD [facility]) History of diabetes mellitus Dx: around , A1c: 7.2 with Denise Soosairaj [employer] , FBS: 114 this morning History of diabetes mellitus Dx: around , A1c: 7.2 with Denise Soosairaj [employer] SUPER[employer] , FBS: 114 this morning 07/28/2019 12:00:00 AM EDT WES (Bebeto liu MD [facility]) Intermediate Eye Exam Established Patient Intermediate Eye Exam Established Patient 07/28/2019 12:00:00 AM EDT WES (Bartolo Mcfadden MD [facility]) History of extracapsular cataract extrac tion PCIOL OS 05/26/[address] De Jesus ~PCIOL OD 06/16/[address] De Jesus History of extracapsular cataract extraction PCIOL OS 05/26/[address] De Jesus ~PCIOL OD 06/16/[address] De Jesus 05/22/2019 12:00:00 AM EDT WES (Bartolo Mcfadden MD [facility]) History of diabetes mellitus Dx: around , A 1c: 7.8, FBS: 160 History of diabetes mellitus Dx: around , A1c: 7.8, FBS: 160 05/22/2019 12:00:00 AM EDT WES (Bebeto Mcfadden MD [facility]) History of extracapsular cataract extrac tion PCIOL OS 05/26/[address] De Jesus ~PCIOL OD 06/16/[address] De Jesus History of extracapsular cataract extraction PCIOL OS 05/26/[address] De Jesus ~PCIOL OD 06/16/[address] De Jesus 05/22/2019 12:00:00 AM EDT WES (Bartolo Mcfadden MD [facility]) History of extracapsular cataract extrac tion PCIOL OS 05/26/[address] De Jesus History of extracapsular cataract extrac tion PCIOL OS 05/26/[address] De Jesus 05/22/2019 12:00:00 AM EDT WES (Bartolo Mcfadden MD [facility]) History of diabetes mellitus Dx: around , A 1c: 7.8, FBS: 160 History of diabetes mellitus Dx: around , A1c: 7.8, FBS: 160 05/22/2019 12:00:00 AM EDT WES (Bebeto Mcfadden MD [facility]) History of extracapsular cataract extrac tion PCIOL OS 05/26/[address] De Jesus ~PCIOL OD 06/16/[address] De Jesus History of extracapsular cataract extraction PCIOL OS 05/26/[address] De Jesus ~PCIOL OD 06/16/[address] De Jesus 05/22/2019 12:00:00 AM EDT WES (Bartolo Mcfadden MD [facility]) Surgical / procedural history 1985, Broken left wrist 1996, Right knee replacement 2014 Surgical / procedural history 1985, Broken left wrist 1996, Right knee replacement 201405/12/2019 12:00:00 AM EDT WES (Bebeto Mcfadden MD [facility]) History of diabetes mellitus Dx: around , A 1c: 7.8, FBS: 160 History of diabetes mellitus Dx: around , A1c: 7.8, FBS: 160 05/12/2019 12:00:00 AM EDT WES (Bebeto Mcfadden MD [facility]) Surgical / procedural history 1985, Broken left wrist 1996, Right knee replacement 2014 Surgical / procedural history 1985, Broken left wrist 1996, Right knee replacement 201405/12/2019 12:00:00 AM EDT WES (Bebeto Mcfadden MD [facility]) No recent change in medical history No recent change in medi leticia history 05/12/2019 12:00:00 AM EDT WES (Bebeto liu MD [facility]) History of diabetes mellitus Dx: around , A1 c: 7.8, FBS: 160 History of diabetes mellitus Dx: around , A1c: 7.8, FBS: 160 05/12/2019 12:00:00 AM EDT WES (Bebeto Mcfadden MD [facility]) Surgical / procedural history 1985, Broken left wrist 1996, Right knee replacement 2014 Surgical / procedural history 1985, Broken left wrist 1996, Right knee replacement 2015 05/12/2019 12:00:00 AM EDT WES (Bebeto Mcfadden MD [facility]) History of extracapsular cataract extraction OS [address] De Jesus History of extracapsular cataract extraction OS 05/26/[address] De Jesus 05/12/2019 12:00:00 AM EDT WES (Bebeto liu MD [facility]) History of diabetes mellitus Dx: around , A1 c: 7.8, FBS: 160 History of diabetes mellitus Dx: around , A1c: 7.8, FBS: 160 05/12/2019 12:00:00 AM EDT WES (Bebeto Mcfadden MD [facility]) Recent change in medical history Cataract surgery OS 05/26/[address] De Jesus Recent change in medical history Cataract surgery OS 05/26/[address] De Jesus 05/12/2019 12:00:00 AM EDT WES (Bebeto liu MD [facility]) Surgical / procedural history 1985, Broken left wrist 1996, Right knee replacement 2014 Surgical / procedural history 1985, Broken left wrist 1996, Right knee replacement 201405/12/2019 12:00:00 AM EDT WES (Bebeto Mcfadden MD [facility]) History of diabetes mellitus Dx: around , A1 c: 7.8, FBS: 160 History of diabetes mellitus Dx: around , A1c: 7.8, FBS: 160 05/12/2019 12:00:00 AM EDT WES (Bebeto Mcfaddne MD [facility]) Surgical / procedural history 1985, Broken left wrist 1996, Right knee replacement 2014 Surgical / procedural history 1985, Broken left wrist 1996, Right knee replacement 201405/12/2019 12:00:00 AM EDT WES (Bebeto Mcfadden MD [facility]) History of diabetes mellitus Dx: around , A1c: 7.8, FBS: yesterday was around 160 History of diabetes mellitus Dx: around , A1c: 7.8, FBS: yesterday was around 160 05/12/2019 12:00:00 AM EDT WES (Bebeto Mcfadden MD [facility]) Surgical / procedural history 1985, Broken left wrist 1995, Right knee replacement 2014 Surgical / procedural history 1985, Broken left wrist 1996, Right knee replacement 201405/12/2019 12:00:00 AM EDT WES (Bebeto Mcfadden MD [facility]) No recent change in medical history No recent change in medi leticia history 05/12/2019 12:00:00 AM EDT WES (Bebeto liu MD [facility]) Surgical / procedural history 1985, Broken left wrist 1995, Right knee replacement 2014 Surgical / procedural history 1985, Broken left wrist 1996, Right knee replacement 201405/12/2019 12:00:00 AM EDT WES (Bebeto Mcfadden MD [facility]) Office Visit, Est Pt., Level 2 FC 03/24/2019 12:00:00 AM EST eCW1 ([facility]) Office Visit, Est Pt., Level 4 PC 03/24/2019 12:00:00 AM EST eCW1 ([facility]) Results ID Date Data Source [id number] 02/27/2020 03:48:00 PM EST [facility] Name Value Range Interpretation Code Description Data Madyson rce(s) Supporting Document(s) SARS-CoV-2 (COVID 19) NEGATIVE - SARS-CoV-2 (COVID19) [facility] This lab was ordered by [facility] a nd reported by [facility]. ID Date Data Source [id number] 01/27/2020 04:23:00 PM EST [facility] Name Value Range Interpretation Code Description Data Madyson rce(s) Supporting Document(s) SARS-CoV-2 (COVID 19) [facility] This lab was ordered by [facility] a nd reported by [facility]. ID Date Data Source [id number] 01/26/2020 11:40:00 AM EST [facility] ([facility], ) Name Value Range Interpretation Code Description Data Madyson rce(s) Supporting Document(s) Natriuretic peptide.B prohormone N-Terminal [Mass/volu me] in Serum or Plasma 713 pg/mL Above high normal MED[facility] ([facility], ) ID Date Data Source [id number] 01/26/2020 11:40:00 AM EST [facility] Name Value Range Interpretation Code Description Data Madyson rce(s) Supporting Document(s) Glucose, Fasting 142 mg/dL 70-100 Above high normal M EDENT ([facility]) Blood Urea Nitrogen 15 mg/dL 7-18 Normal (applies to non-nume blaire results) [facility] ([facility]) Creatinine For GFR 0.51 mg/dL 0.55-1.30 Below low normal [facility] ([facility]) Glomerular Filtration Rate Laboratory test result Normal (applies to non- numeric results) [facility] ([facility]) <content>Units are mL/min/1.73 m2</content>
<content></content>
<content>Chronic Kidney Disease Staging per NKF:</content>
<content></content>
<content>Stage I & II GFR >=60 Normal to Mildly Decreased</content>
<content>Stage III GFR 30- 59 Moderately Decreased</content>
<content>Stage IV GFR 15-29 Severely Decreased</content>
<content>Stage V GFR <15 Very Little GFR Left</content>
<content>ESRD GFR <15 on [employer] TECH</content>
<content></content> Potassium Serum 4.0 meq/L 3.5-5.1 Normal (applies to non-numeric results) [facility] ([facility]) Sodium Level 140 meq/L 136-145 Normal (applies to non-numeric res ults) [facility] ([facility]) Carbon Dioxide Level 33 meq/L 21-32 Above high normal [facility] ([facility]) Anion Gap 6 meq/L 8-16 Below low normal [facility] ( [facility]) Chloride Level 101 meq/L 98-107 Normal (applies to non-numeric r esults) [facility] ([facility]) Calcium Level 8.7 mg/dL 8.8-10.2 Below low normal [facility] ([facility]) ID Date Data Source [id number] 01/09/2020 10:39:00 AM EST [facility] ([facility]) Name Value Range Interpretation Code Description Data Madyson rce(s) Supporting Document(s) Urea nitrogen [Mass/volume] in Serum or Plasma 12 mg/dL 7 -18 Normal (applies to non-numeric results) [facility] ([facility]) ID Date Data Source [id number] 01/09/2020 10:39:00 AM [facility] ([facility] Name Value Range Interpretation Code Description Data Madyson rce(s) Supporting Document(s) Glomerular Filtration Rate Laboratory test result Normal (applies to non- numeric results) [facility] ([facility]) <content>Units are mL/min/1.73 m2</content>
<content></content>
<content>Chronic Kidney Disease Staging per NKF:</content>
<content></content>
<content>Stage I & II GFR >=60 Normal to Mildly Decreased</content>
<content>Stage III GFR 30- 59 Moderately Decreased</content>
<content>Stage IV GFR 15-29 Severely Decreased</content>
<content>Stage V GFR <15 Very Little GFR Left</content>
<content>ESRD GFR <15 on [employer] TECH</content>
<content></content> Creatinine For GFR 0.47 mg/dL 0.55-1.30 Below low normal [facility] ([facility]) ID Date Data Source [id number] 01/05/2020 11:01:00 AM EST [facility] ([facility]) Name Value Range Interpretation Code Description Data Madyson rce(s) Supporting Document(s) Gram Stain Laboratory test result Normal (applies to non-n umeric results) [facility] ([facility]) MANY RBCS MODERATE WBCS NO ORGANISMS SEEN Body Fluid Culture Laboratory test result [facility] ([facility]) If aerobic or anaerobic growth is detected within the next 7-21 days, an addendum will follow. . . FULL REPORT IN LAB NOTES (eCW and [facility]). NO GROWTH AEROBICALLY ID Date Data Source [id number] 01/05/2020 11:01:00 AM EST [facility] ([facility]) Name Value Range Interpretation Code Description Data Madyson rce(s) Supporting Document(s) PH Body Fluid 7.399 units Normal (applies to non-numeric r esults) [facility]) Source, Body Fluid pH Laboratory test result Nor mal (applies to non-numeric results) [facility]) ID Date Data Source [id number] 01/05/2020 11:01:00 AM EST [facility]) Name Value Range Interpretation Code Description Data Madyson rce(s) Supporting Document(s) Source, Body Fluid Amylase Laboratory test result Normal (applies to non- numeric results) [facility]) Amylase, Body Fluid 14 U/L Normal (applies to non-nume blaire results) [facility]) ID Date Data Source [id number] 01/05/2020 11:01:00 AM EST [facility] ([facility]) Name Value Range Interpretation Code Description Data Madyson rce(s) Supporting Document(s) Glucose, Body Fluid 120 mg/dL Normal (applies to non-nume blaire results) [facility]) Source, Body Fluid Glucose Laboratory test result Normal (applies to non- numeric results) [facility]) ID Date Data Source [id number] 01/05/2020 11:01:00 AM EST [facility] Name Value Range Interpretation Code Description Data Madyson rce(s) Supporting Document(s) Source, Body Fluid LDH Laboratory test result No rmal (applies to non-numeric results) [facility]) LDH, Body Fluid 188 U/L Normal (applies to non-numeric results) [facility] ([facility]) ID Date Data Source [id number] 01/05/2020 11:01:00 AM EST [facility]) Name Value Range Interpretation Code Description Data Madyson rce(s) Supporting Document(s) Total Protein, Body Fluid 4.1 g/dL Normal (applies to no n-numeric results) [facility] ([facility]) Source, Body Fluid Tot Protein Laboratory test result Normal (applies to non- numeric results) [facility] ([facility]) ID Date Data Source [id number] 01/05/2020 11:01:00 AM EST [facility]) Name Value Range Interpretation Code Description Data Madyson rce(s) Supporting Document(s) Bacteria identified in Unspecified specimen by Anaerob e culture Laboratory test result [facility]) If anaerobic or aerobic growth is detected within the next 7-21 days, an addendum will follow. . . FULL REPORT IN LAB NOTES ([facility]CW and [facility]). NO GROWTH ANAEROBICALLY ID Date Data Source [id number] 01/05/2020 11:01:00 AM EST [facility] ([facility]) Name Value Range Interpretation Code Description Data Madyson rce(s) Supporting Document(s) Source, Body Fluid Laboratory test result Normal (applies to non-numeric results) [facility] ([facility]) Pleural FL Color Laboratory test result Normal ( applies to non-numeric results) [facility] ([facility]) RBC Body Fluid 26 10 Normal (applies to non-numeric r esults) [facility] ([facility]) Appearance, Body Fluid Laboratory test result No rmal (applies to non-numeric results) [facility] ([facility]) WBC Body Fluid 634 /uL 0-10 Above high normal [facility] ([facility]) BF Mononuclear Cell % 94.6 % 0-0 Above high normal [facility] ([facility]) BF Polymorphonuclear Cell % 5.4 % 0-0 Above high normal [facility] ([facility]) ID Date Data Source [id number] 01/05/2020 11:01:00 AM EST [facility] ([facility]) Name Value Range Interpretation Code Description Data Madyson rce(s) Supporting Document(s) Amylase [Enzymatic activity/volume] in Body fluid Laboratory test res ult [facility]) ID Date Data Source [id number] 01/05/2020 09:21:00 AM EST [facility] ([facility]) Name Value Range Interpretation Code Description Data Madyson rce(s) Supporting Document(s) Surgical pathology study Laboratory test result [facility] ([facility]) FINAL DIAGNOSIS Right pleural fluid, cell-block: No malignant cells identified. Inflammatory cells and mesothelial cells. TTF-1 stain used in evaluation. See specimen [id number] 01/09/2020 - 1112 CLINICAL DIAGNOSIS Right pleural effusion 01/08/202009 GROSS DIAGNOSIS Received 400 ml of right pleural fluid for cell block. -OA 01/09/20201112 Signed LILIYA WASHINGTON MD 01/09/2020 1113 ID Date Data Source [id number] 01/05/2020 09:21:00 AM EST [facility] ([facility]) Name Value Range Interpretation Code Description Data Madyson rce(s) Supporting Document(s) Microscopic observation [Identifier] in Unspecified specimen by Non- gynecological cytology method Laboratory test result [facility] ([facility]) SPECIMEN: Pleural fluid 400ml Red SPECIMEN ADEQUACY: Satisfactory for evaluation CATEGORIZATION: Rare Clusters of Atypical Cells DESCRIPTIONS: Few groups of atypical cells exhbiting irregular nuclei with prominent nucleoli, suspicious for metastatic carcinoma. COMMENTS: Clinical correlation is recommended. 01/09/2020 112 Signed FIORELLA ERNANDEZ(ASCP) 01/08/2020 0739 (Prelim) Signed LILIYA WASHINGTON MD 01/09/2020 1122 ID Date Data Source [id number] 12/27/2019 02:30:00 PM EST [facility] ([facility]) Name Value Range Interpretation Code Description Data Madyson rce(s) Supporting Document(s) Surgical pathology study Laboratory test result MED[facility] ([facility], ) Anatomic Molecular Pathology Report Name: OPAL VALENZUELA Collection Date: 12/27/2019 00:00 Received Date: 12/29/2019 14:28 Physician(s): BRIANA HUGHES MD Haghir, Shahandeh MD Copy To: BRIANA HUGHES MD Specimen(s) Received A: Right lung, lower lobe, Formalin Block [id number] received from [facility] in [place], [place] ROS1 by FISH Diagnosis TEST: ROS1 [...] its performance characteristics were determined by the [facility], and it has been authorized for clinical use by [facility]. The test has not been cleared or approved by the U.S. Food and Drug Administration. The analyte specific reagents used in this assay do not require FDA approval. Processed at [facility] [employer] [address] [place] [address] and reported at [facility], [address] [place] [address]. REFERENCES: 1. ALEM Che, Ava AT, Elba GALVAN et al. Identifying and Targeting ROS1 Gene Fusions in NonSmall Cell Lung Cancer. Clin Cancer Res 2012; 18(17); 43265978. 2. Carlin, [place] AT. Novel Targets i n Non-Small Cell Lung Cancer: ROS-1 and RET fusions. The Oncologist. 2013;18:865-875. This report may include one or more immunohistochemical stain results that use analyte specific reagents. All positive and negative controls have been reviewed by the attending pathologist and are satisfactory. The tests were developed and their performance characteristics determined by [facility] Pathology department. They have not been cleared or approved by the US Food and Drug Administration. The FDA has determined that such clearance or approval is not necessary. ID Date Data Source [id number] 12/27/2019 09:12:00 AM EST MEDENT ([facility], ) Name Value Range Interpretation Code Description Data Madyson rce(s) Supporting Document(s) Microscopic observation [Identifier] in Unspecified specimen by Non- gynecological cytology method Laboratory test result [facility] ([facility]) will discuss at follow-up ID Date Data Source [id number] 12/27/2019 09:04:00 AM EST MED[facility] ([facility], ) Name Value Range Interpretation Code Description Data Madyson rce(s) Supporting Document(s) Glucose [Mass/volume] in Capillary blood by Glucometer 176 mg/dL 83-110 Above high normal [facility] ([facility]) Doctor Notified ID Date Data Source [id number] 12/27/2019 08:52:00 AM EST [facility] ([facility]) Name Value Range Interpretation Code Description Data Madyson rce(s) Supporting Document(s) Microscopic observation [Identifier] in Unspecified specimen by Non- gynecological cytology method Laboratory test result [facility] ([facility]) SPECIMEN: Bronchial brushing (right lower lobe) [place] in vial and prepared slides received SPECIMEN ADEQUACY: Satisfactory for evaluation CATEGORIZATION: Positive for Malignancy DESCRIPTIONS: Small groups and single malignant cells noted exhibiting nuclei of varying size with multiple prominent nucleoli. The background consists of scattered lymphocytes and blood. COMMENTS: See also report [id number] /TR 12/28/2019914 Signed FIORELLA ERNANDEZ(ASCP) 12/28/2019 0752 (Prelim) Signed Isabella Mckeon MD 12/28/2019914 ID Date Data Source [id number] 12/27/2019 08:51:00 AM EST [facility] ([facility]) Name Value Range Interpretation Code Description Data Madyson rce(s) Supporting Document(s) Microscopic observation [Identifier] in Unspecified specimen by Non- gynecological cytology method Laboratory test result [facility] ([facility]) SPECIMEN: FNA Subcarinal lymp h node Cytolyt and prepared slides received SPECIMEN ADEQUACY: Satisfactory for evaluation CATEGORIZATION: Positive for Malignancy DESCRIPTIONS: Specimen consists of groups and single malignant cells exhibiting variation in nuclear size and prominent multiple nucleoli. COMMENTS: Findings are consistent with metastatic NSCLC, see also report [id number] /TR 12/28/2019913 Signed FIORELLA ERNANDEZ(ASCP) 12/28/2019 0702 (Prelim) Signed Isabella Mckeon MD 12/28/2019913 ID Date Data Source [id number] 12/27/2019 08:38:00 AM EST [facility] ([facility] Name Value Range Interpretation Code Description Data Madyson rce(s) Supporting Document(s) Surgical pathology study Laboratory test result [facility] ([facility]) Addendum 1 Entered: 01/10/2020-0805 PD-L1 KEYTRUDA shows tumor proportion score of 80%/High expression. See complete report from [facility]. Negative EGFR Negative for KRAS Negative for BRAF Negative for ALK Negative for ROS1 See complete reports from [facility], scanned in EMR under pathology module. 01/10/2020804 Addendum Signed____ Isabella Mckeon MD 01/10/2020804 FINAL DIAGNOSIS Right lung, lower lobe, biopsy: Poorly differentiated/high grade adenocarcinoma. TTF-1 is positive in tumor cells and P40 stain is negative. See note. NOTE: The unstained slides were sent for PD-L1 testing to [facility] and the tissue block to [facility] for molecular test panel. Addendum with results will follow. 4/TR 12/28/20191251 CLINICAL DIAGNOSIS Abnormal x-ray 12/27/20191506 GROSS DIAGNOSIS Received in formalin labeled "right lower lobe" is a bag containing a 0.8 x 0.4 x 0.2 cm aggregate of pale whi te and red fragments. All in one. - 12/27/20191506 Signed Isabella Mckeon MD 12/28/20191251 ID Date Data Source [id number] 12/27/2019 07:15:00 AM EST [facility] Name Value Range Interpretation Code Description Data Madyson rce(s) Supporting Document(s) Glucose [Mass/volume] in Capillary blood by Glucometer 152 mg/dL 83-110 Above high normal [facility] ([facility]) ID Date Data Source [id number] 12/27/2019 07:13:00 AM EST [facility] Name Value Range Interpretation Code Description Data Madyson rce(s) Supporting Document(s) Gram Stain Laboratory test result Normal (applies to non-n umeric results) [facility] ([facility] ) MANY WBCS NO ORGANISMS SEEN Bal Culture Laboratory test result Normal (applies to non- numeric results) [facility] ([facility], ) FULL REPORT IN LAB NOTES (eCW and [facility] ). NO GROWTH AEROBICALLY ID Date Data Source [id number] 01/09/2020 11:59:00 AM [facility] Anatomic Molecular Pathology ReportName: FELIX VALENZUELA: [id number] Number: [id number] Date: 12/27/2019 00:00Received Date: 12/29/2019 14:28Physician(s): BRIANA HUGHES MD Haghir, Shahandeh MDC[facility] To:BRIANA HUGHES MDSpecimen(s) ReceivedA: Right lung, lower lobe, Formalin Block [id number] received from [facility] in [place], [place] ROS1 by FISHDiagnosisTEST:ROS1 gene rearrangements by [...] labeled with SpectrumOrange. Tumor cells with no [id number] have 2 yellow signals (fused orange and [...] and its performance characteristics weredetermined by the [facility],and it has been authorized for clinical use by [facility]. The test has not been cleared or approved by the U.S. Food andDrug Administration. The analyte specific reagents used in this assay donot require FDA approval. Processed at [facility] [employer] [address] [place] [address] and reported at [facility], [address] [place] [address].REFERENCES: 1. ALEM Che, Ava AT, Elba GALVAN et al. Identifying and Targeting [id number] Fusions in NonSmall Cell Lung Cancer. Clin Cancer Res 2012; 18(17);28408226.2. Carlin, [place] AT. Novel Targets in Non-Small Cell Lung Cancer:ROS-1 and RET fusions. The Oncologist. 2013;18:865- 875.This report may include one or more immunohistochemical stain results thatuse analyte specific reagents. All positive and negative controls havebeen reviewed by the attending pathologist and are satisfactory. The testswere developed and their performance characteristics determined by [facility] Pathology department. They have not been cleared or approved by the USFood and Drug Administration. The FDA has determined that such clearanceor approval is not necessary. Name Value Range Interpretation Code Description Data Madyson rce(s) Supporting Document(s) ID Date Data Source [id number] 01/09/2020 11:58:00 AM [facility] Anatomic Molecular Pathology ReportName: CLAY VALENZUELAGUDELIA: [id number] Number: [id number] Date: 12/27/2019 00:00Received Date: 12/29/2019 14:26Physician(s): BRIANA HUGHES MD Haghir, Shahandeh MDCopy To:BRIANA HUGHES MDSpecimen(s) ReceivedA: Right lung, lower lobe, Formalin Block [id number] received from [facility] in [place], [place], ALK by FISHDiagnosisTEST:ALK gene rearrangements by [...] is performed on paraffin embedded NSCLC utilizing theWozityou Molecular ALK Break Apart FISH Probe Kit. [...] the special procedure laboratory of Department of Pathology,[facility]. Processed at [facility] [employer], [address] [place], [place] [address] and reported at [facility], [address] [place] [address].This report may include one or more immunohistochemical stain results thatuse analyte specific reagents. All positive and negative controls havebeen reviewed by the attending pathologist and are satisfactory. The testswere developed and their performance characteristics determined by [facility] Pathology department. They have not been cleared or approved by the USFood and Drug Administration. The FDA has determined that such clearanceor approval is not necessary. Name Value Range Interpretation Code Description Data Madyson rce(s) Supporting Document(s) ID Date Data Source [id number] 01/08/2020 09:28:00 AM [facility] Anatomic Molecular Pathology ReportName: FELIX VALENZUELA: [id number] Number: [id number] Date: 12/27/2019 00:00Received Date: 12/29/2019 14:30Physician(s): BRIANA HUGHES MD Haghir, Shahandeh MDCopy To:BRIANA HUGHES MDSpecimen(s) ReceivedA: Right lung, lower lobe, Formalin Block [id number] received from [facility] in [place], [place] KRAS Mutation AnalysisDiagnosisTEST:KRAS gene mutations by [...] therapeutic response. xiomara/ efraínElectronically Signed By Jorge Balderas M.D. Attending Pathologist 01/08/2020 09:28:14Reported at [address] [place] [address]. Gross DescriptionMETHODOLOGY: The therascreen KRAS RGQ PCR Kit is a real-time qualitative PCR assayused on the Mulu instrument for the detection of seven somaticmutations [...] Herrera, Prince JM, Lynn MR, et al. [place] Societyof Clinical Oncology provisional clinical opinion: testing for KRAS genemutations in patients with metastatic colorectal carcinoma to predictresponse to anti-epidermal growth factor receptor monoclonal antibodytherapy. J Clin Oncol 27:2194-0200, 2009. 2. Karla Yanes , Sophie Ferguson , VIKTORIYA Scott, et al.Biomarkers predicting clinical outcome of epidermal growth factor receptortargeted therapy in metastatic colorectal cancer. J Natl Cancer Phso611:50287883, 2009.This report may include one or more immunohistochemical stain results thatuse analyte specific reagents. All positive and negative controls havebeen reviewed by the attending pathologist and are satisfactory. The testswere developed and their performance characteristics determined by [facility] Pathology department. They have not been cleared or approved by the USFood and Drug Administration. The FDA has determined that such clearanceor approval is not necessary. Name Value Range Interpretation Code Description Data Madyson rce(s) Supporting Document(s) ID Date Data Source [id number] 01/08/2020 09:26:00 AM [facility] Anatomic Molecular Pathology ReportName: CLAY VALENZUELAJamesN: [id number] Number: [id number] Date: 12/27/2019 00:00Received Date: 12/29/2019 14:29Physician(s): BRIANA HUGHES MD Haghir, Shahandeh MDCopy To:BRIANA HUGHES MDSpecimen(s) ReceivedA: Right lung, lower lobe, Formalin Block [id number] received from [facility] in [place], [place] EGFRDiagnosisTEST: EGFR gene mutations (exon 19 [...] indicated. Presence of exon 19 deletions, exon 97I269B or L861Q, exon 18 G719A or exon [...] Balderas M.D. Attending Pathologist 01/08/2020 09:26:13Reported at [address] [place] [address]. Gross DescriptionMETHODOLOGY:The therascreen EGFR RGQ PCR Kit ([employer], [place], [place]) is a real-timequalitative PCR assay used on the [employer] Q MDx instrument for thedetection of seven types of mutations at EGFR oncogene. The kit requiresDNA extracted from formalin-fixed paraffin-embedded (FFPE) tissue ofnon-small cell lung cancer. The tumor area is identified by the attendingpathologist and manually microdissected. The assay uses Scorpionse andARMSe (Allele Refractory Mutation System) technologies, and [facility] Health Medical CenterDA-approved for clinical patient care. Allele-specific amplification isachieved [...] factor receptormutations in lung cancer. Nature Review/Cancer. 2007;1006-8739.This report may include one or more immunohistochemical stain results thatuse analyte specific reagents. All positive and negative controls havebeen reviewed by the attending pathologist and are satisfactory. The testswere developed and their performance characteristics determined by [facility]ology [facility]. They have not been cleared or approved by the USFood and Drug Administration. The FDA has determined that such clearanceor approval is not necessary. Name Value Range Interpretation Code Description Data Madyson rce(s) Supporting Document(s) ID Date Data Source [id number] 01/08/2020 09:23:00 AM [facility] Anatomic Molecular Pathology ReportName: CLAY VALENZUELAJamesN: [id number] Number: [id number] Date: 12/27/2019 00:00Received Date: 12/29/2019 14:32Physician(s): BRIANA HUGHES MD Haghir, Shahandeh MDCopy To:BRIANA HUGHES MDSpecimen(s) ReceivedA: Right lung, lower lobe, Formalin Block [id number] received from [facility] in [place], [place] BRAF Mutation AnalysisDiagnosisTESTS:BRAF V600E mutation (1799 [...] Balderas M.D. Attending Pathologist 01/08/2020 09:23:29Reported at [address] [place] [address]. Gross DescriptionMETHODOLOGY:BRAF V600E(1799 T>A) mutation at exon [...] amounts of PCR products, and analyzed by [employer] Q real timeinstrument. The analytical sensitivity (or minimum percentage of mutantDNA needed) is approximately 10% given sufficient DNA input. Test development and its performance characteristics were determined bythe [facility], and has beenauthorized for clinical use by [facility]. Thetest has not been cleared or approved by the U.S. Food and DrugAdministration. The analyte specific reagents used in this assay do notrequire FDA approval. REFERENCES: 1. Gisel SKenneth Alenda C, et al. Detection of BRAF B773Rnuwmxqvu in colorectal cancer-comparison of automatic sequencing and realtime chemistry methodology. J Mol Diagn. 2006; 8:912979.2. Bora L, Tip TRACY, Ella N, et al. BRAF mutation analysis in fineneedle aspiration (FNA) cytology of the thyroid. Diagn Mol Pathol.2006;15:909109.3. Machelle PK, Mesha ME, Caron M, et al. Clinical characteristics ofpatients with lung adenocarcinomas harboring BRAF mutations. J Clin Oncol.2011;29:9492-0478.This report may include one or more immunohistochemical stain results thatuse analyte specific reagents. All positive and negative controls havebeen reviewed by the attending pathologist and are satisfactory. The testswere developed and their performance characteristics determined by [facility] Pathology department. They have not been cleared or approved by the USFood and Drug Administration. The FDA has determined that such clearanceor approval is not necessary. Name Value Range Interpretation Code Description Data Madyson rce(s) Supporting Document(s) ID Date Data Source [id number] 12/22/2019 01:00:00 PM EDT [facility] Name Value Range Interpretation Code Description Data Madyson rce(s) Supporting Document(s) SARS coronavirus 2 RNA [facility] This lab was ordered by [facility] and reported by [facility]. ID Date Data Source [id number] 12/07/2019 10:38:00 AM EDT [facility] ([facility], ) Name Value Range Interpretation Code Description Data Madyson rce(s) Supporting Document(s) Glucose, Fasting 52 mg/dL 70-100 Below low normal [facility] DENT ([facility], ) Creatinine For GFR 0.47 mg/dL 0.55-1.30 Below low normal [facility] ([facility]) Blood Urea Nitrogen 13 mg/dL 7-18 Normal (applies to non-nume blaire results) [facility] ([facility], ) Glomerular Filtration Rate Laboratory test result Normal (applies to non- numeric results) [facility], ) <content>Units are mL/min/1.73 m2</content>
<content></content>
<content>Chronic Kidney Disease Staging per NKF:</content>
<content></content>
<content>Stage I & II GFR >=60 Normal to Mildly Decreased</content>
<content>Stage III GFR 30- 59 Moderately Decreased</content>
<content>Stage IV GFR 15-29 Severely Decreased</content>
<content>Stage V GFR <15 Very Little GFR Left</content>
<content>ESRD GFR <15 on [employer] APPLIANCE TECH</content>
<content></content> Sodium Level 139 meq/L 136-145 Normal (applies to non-numeric res ults) [facility] ([facility]) Chloride Level 103 meq/L 98-107 Normal (applies to non-numeric r esults) [facility] ([facility]) Carbon Dioxide Level 32 meq/L 21-32 Normal (applies to non-num tyrese results) [facility]) Potassium Serum 4.2 meq/L 3.5-5.1 Normal (applies to non-numeric results) [facility]) Anion Gap 4 meq/L 8-16 Below low normal [facility] ( [facility]) Calcium Level 9.6 mg/dL 8.8-10.2 Normal (applies to non-numeric re sults) [facility]) ID Date Data Source [id number] 12/07/2019 10:38:00 AM EDT [facility]) Name Value Range Interpretation Code Description Data Madyson rce(s) Supporting Document(s) Prothrombin Time 13.1 s 12.5-14.3 Normal (applies to non-numeric results) [facility]) Partial Thromboplastin Time 34.0 s 24.2-38.5 Norm al (applies to non-numeric results) [facility]) Inr 0.98 Normal (applies to non-numeric resul ts) [facility]) THERAPUTIC HUMAN INR VALUES INDICATIONS NORMAL RANGES PROPHYLAXIS/TREATMENT OF: VENOUS THROMBOSIS 2.0-3.0 PULMONARY EMBOLISM 2.0-3.0 PREVENTION OF SYSTEMIC EMBOLISM FROM: TISSUE HEART VALVES 2.0-3.0 ACUTE MYOCARDIAL INFARCTION 2.0-3.0 VALVULAR HEART DISEASE 2.0-3.0 ATRIAL FIBRILLATION 2.0-3.0 MECHANICAL VALVES(HIGH RISK) 2.5-3.5 RECURRENT MYOCARDIAL INFARCTION 2.5-3.5 ID Date Data Source [id number] 12/07/2019 10:38:00 AM EDT [facility]) Name Value Range Interpretation Code Description Data Madyson rce(s) Supporting Document(s) aPTT in Platelet poor plasma by Coagulation assay Laboratory test res ult [facility] ([facility], ) Platelets [#/volume] in Blood by Automated count 281 10 150-450 Normal (applies to non-numeric results) [facility] ([facility]) ID Date Data Source [id number] 12/07/2019 09:16:00 AM EDT [facility] ([facility]) Name Value Range Interpretation Code Description Data Madyson rce(s) Supporting Document(s) PDFReport Laboratory test result [facility] ([facility]) FVC-Pre 1.53 L [facility] ([facility]) FVC-Pred 2.81 L [facility] ([facility]) FVC-%Pred-Pre 54 L [facility] ([facility]) FVC-LLN 2.15 L [facility] ([facility]) Fev1-Pre 1.21 L [facility] ([facility]) Fev1-Pred 2.13 L [facility] ([facility]) Fev1-%Pred-Pre 56 L [facility] ([facility]) Fev1-LLN 1.57 L [facility] ([facility]) Fev6-Pred 2.69 L [facility] ([facility]) Fev6-Pre 1.53 L [facility] ([facility]) Fev6-%Pred-Pre 56 L [facility] ([facility]) Fev6-LLN 2.04 L [facility] ([facility]) Lcx2fna-Incw 76 % [facility] ([facility]) Zds8xyn-%Pred-Pre 103 % [facility] ([facility]) Vgw5fgk-Pem 79 % [facility] ([facility]) Mgz6tkr-Tww 100 % [facility] ([facility]) Bvg2bsg-Mkvz 95 % [facility] ([facility]) Wuy8zrb-PGN 66 % [facility] ([facility]) Qcr4rng-%Pred-Pre 104 % [facility] ([facility], ) FEFMax-Pred 5.42 L/E/sec [facility] ([facility], ) FEFMax-Pre 3.58 L/E/sec [facility] ([facility], ) FEFMax-%Pred-Pre 66 L/E/sec [facility] ([facility], ) FEFMax-LLN 3.78 L/E/sec [facility] ([facility], ) Vxv1492-Uqc 1.06 L/E/sec [facility] ([facility], ) Nnr9390-%Pred-Pre 58 L/E/sec [facility] ([facility]) Oxk9766-Jbbs 1.81 L/E/sec [facility] ([facility], ) ExpTime-Pre 5.52 sec [facility] ([facility], ) Vhy1168-BUZ 0.63 L/E/sec [facility] ([facility], ) Nkc8mbo0-Uxbn 79 % [facility] ([facility], ) Tyu1wcy3-FBP 70 % [facility] ([facility], ) Wbs4cul2-Jyi 79 % [facility] ([facility]) Ahx1hbo3-%Pred-Pre 99 % [facility] ([facility]) ID Date Data Source MAGNESIUM LEVEL 11/27/2019 04:24:18 AM EDT [facility] ([facility]) Name Value Range Interpretation Code Description Data Madyson rce(s) Supporting Document(s) 2.0 MAGNESIUM LEVEL eCW1 ([facility]) ID Date Data Source NT-PRO BNP 11/27/2019 04:24:14 AM EDT eCW ([facility]) Name Value Range Interpretation Code Description Data Madyson rce(s) Supporting Document(s) 138 NT-PRO BNP eCW1 ([facility]) ID Date Data Source CBC with Differential 11/27/2019 04:24:09 AM EDT W ([facility]) Name Value Range Interpretation Code Description Data Madyson rce(s) Supporting Document(s) 11.0 WHITE BLOOD COUNT eCW1 ([facility]) 3.76 RED BLOOD COUNT eCW1 ([facility]) 34.7 HEMATOCRIT eCW1 ([facility]) 10.8 HEMOGLOBIN eCW1 ([facility]) 28.7 MEAN CORPUSCULAR HEMOGLOBIN eC W1 ([facility]) 31.1 MEAN CORPUSCULAR HGB CONC eCW1 ([facility]) 92.3 MEAN CORPUSCULAR VOLUME eCW1 ( [facility]) 276 PLATELET COUNT, AUTOMATED eCW1 ([facility]) 14.3 RED CELL DISTRIBUTION WIDTH eC W1 ([facility]) 61.9 NEUTROPHILS % eCW1 ([facility]) 7.9 MONO % eCW1 ([facility]) 21.6 LYMPH % eCW1 ([facility]) 7.8 EOS % eCW1 ([facility]) 6.8 NEUTROPHILS # eCW1 ([facility]) 0.4 BASO % eCW1 ([facility]) 2.4 LYMPH # eCW1 ([facility]) 0.9 MONO # eCW1 ([facility]) 0.9 EOS # eCW1 ([facility]) 0.0 BASO # eCW1 ([facility]) Procedure Social History Code Duration Value Status Description Data Source(s ) Smoking 01/11/2020 12:00:00 AM EST Patient is a former smoker completed Patient is a former smoker [facility] ([facility], ) Smoking 12/06/2019 12:00:00 AM EDT Former Smoker completed Former Smoker eCW1 ([facility]) Smoking 12/06/2019 12:00:00 AM EDT Former Smoker completed Former Smoker eCW1 ([facility]) Smoking 12/06/2019 12:00:00 AM EDT Former Smoker completed Former Smoker eCW1 ([facility]) Smoking 12/06/2019 12:00:00 AM EDT Former Smoker completed Former Smoker eCW1 ([facility]) Smoking 12/06/2019 12:00:00 AM EDT Former Smoker completed Former Smoker eCW1 ([facility]) Smoking 12/06/2019 12:00:00 AM EDT Former Smoker completed Former Smoker eCW1 ([facility]) Smoking 12/06/2019 12:00:00 AM EDT Former Smoker completed Former Smoker eCW1 ([facility]) Smoking 12/06/2019 12:00:00 AM EDT Former Smoker completed Former Smoker eCW1 ([facility]) Smoking 12/06/2019 12:00:00 AM EDT Former Smoker completed Former Smoker eCW1 ([facility]) Smoking 12/06/2019 12:00:00 AM EDT Former Smoker completed Former Smoker eCW1 ([facility]) Smoking 12/06/2019 12:00:00 AM EDT Former Smoker completed Former Smoker eCW1 ([facility]) Smoking 12/06/2019 12:00:00 AM EDT Former Smoker completed Former Smoker eCW1 ([facility]) Smoking 12/06/2019 12:00:00 AM EDT Former Smoker completed Former Smoker eCW1 ([facility]) Smoking 12/06/2019 12:00:00 AM EDT Former Smoker completed Former Smoker eCW1 ([facility]) Smoking 12/06/2019 12:00:00 AM EDT Former Smoker completed Former Smoker eCW1 ([facility]) Smoking 12/06/2019 12:00:00 AM EDT Former Smoker completed Former Smoker eCW1 ([facility]) Smoking 11/27/2019 12:00:00 AM EDT Former Smoker completed Former Smoker eCW1 ([facility]) Smoking 08/04/2019 12:00:00 AM EDT Former Smoker completed Former Smoker eCW1 ([facility]) Smoking 08/04/2019 12:00:00 AM EDT Former Smoker completed Former Smoker eCW1 ([facility]) Smoking 08/04/2019 12:00:00 AM EDT Former Smoker completed Former Smoker eCW1 ([facility]) Smoking 07/28/2019 12:34:53 PM EDT Ex-smoker (finding) complet ed Ex-smoker (finding) WES (Bebeto Mcfadden MD [facility]) Smoking 05/22/2019 05:14:12 PM EDT Ex-smoker (finding) complet ed Ex-smoker (finding) WES (Bebeto Mcfadden MD [facility]) Smoking 05/22/2019 05:06:57 PM EDT Ex-smoker (finding) complet ed Ex-smoker (finding) WES (Bebeto Mcfadden MD [facility]) Smoking 05/22/2019 04:59:57 PM EDT Ex-smoker (finding) complet ed Ex-smoker (finding) WES (Bebeto Mcfadden MD [facility]) Smoking 05/22/2019 04:50:10 PM EDT Ex-smoker (finding) complet ed Ex-smoker (finding) WES (Bebeto Mcfadden MD [facility]) Smoking 05/22/2019 04:17:00 PM EDT Ex-smoker (finding) complet ed Ex-smoker (finding) WES (Bebeto Mcfadden MD [facility]) Smoking 05/22/2019 04:03:26 PM EDT Ex-smoker (finding) complet ed Ex-smoker (finding) WES (Bebeto Mcfadden MD [facility]) Smoking 05/22/2019 03:50:28 PM EDT Ex-smoker (finding) complet ed Ex-smoker (finding) WES (Bebeto Mcfadden MD [facility]) Vital Signs ID Date Data Source UNK Name Value Range Interpretation Code Description Data Source(s) Body surface area Derived from formula 1.67 m2 1.67 m2 [facility] ([facility]) Body weight 64.865 kg 64.865 kg [facility] [place] body weight 110 [lb_av] 110 [lb_av] [facility] T ([facility]) Body mass index (BMI) [Ratio] 25.7 kg/m2 25.7 k g/m2 [facility] ([facility]) Body weight 143.00 [lb_av] 143.00 [lb_av] [facility] T ([facility]) Body height 62.5 [in_i] 62.5 [in_i] [facility] ([facility]) 5'2.50" Oxygen saturation in Arterial blood by Pulse oximetry 97 % 97 % [facility] ([facility]) Heart rate 97 /min 97 /min [facility] ([facility]) Diastolic blood pressure 70 mm[Hg] 70 mm[Hg] [facility] ([facility]) Systolic blood pressure 122 mm[Hg] 122 mm[Hg] [facility] ([facility]) Body surface area Derived from formula 1.67 m2 1.67 m2 [facility] ([facility]) Body weight 64.638 kg 64.638 kg [facility] [place] body weight 110 [lb_av] 110 [lb_av] [facility] ([facility]) Body mass index (BMI) [Ratio] 25.6 kg/m2 25.6 k g/m2 [facility] ([facility]) Body weight 142.50 [lb_av] 142.50 [lb_av] [facility] Body height 62.5 [in_i] 62.5 [in_i] [facility] ([facility]) 5'2.50" Body temperature 96.8 [degF] 96.8 [degF] [facility] ([facility]) Oxygen saturation in Arterial blood by Pulse oximetry 96 % 96 % [facility] ([facility]) Heart rate 100 /min 100 /min [facility] ([facility]) Diastolic blood pressure 64 mm[Hg] 64 mm[Hg] [facility] ([facility]) Systolic blood pressure 122 mm[Hg] 122 mm[Hg] [facility] ([facility]) Body weight 65.999 kg 65.999 kg [facility] [place] body weight 110 [lb_av] 110 [lb_av] [facility] T ([facility]) Body mass index (BMI) [Ratio] 26.2 kg/m2 26.2 k g/m2 [facility] ([facility]) Body weight 145.50 [lb_av] 145.50 [lb_av] [facility] Body height 62.5 [in_i] 62.5 [in_i] [facility] 5'2.50" Oxygen saturation in Arterial blood by Pulse oximetry 95 % 95 % [facility] ([facility], ) Heart rate 87 /min 87 /min [facility] Diastolic blood pressure 60 mm[Hg] 60 mm[Hg] [facility] Systolic blood pressure 106 mm[Hg] 106 mm[Hg] M EDENT ([facility], ) Diastolic blood pressure 74 mm[Hg] 74 mm[Hg] eCW1 ([facility]) Systolic blood pressure 126 mm[Hg] 126 mm[Hg] e CW1 ([facility]) Body temperature 97.1 [degF] 97.1 [degF] eCW1 ( [facility]) Respiratory rate 18 /min 18 /min eCW1 ([facility]) Heart rate 90 /min 90 /min eCW1 ([facility]) Body mass index (BMI) [Ratio] 26.42 kg/m2 26.42 kg/m2 W1 ([facility]) Body height 62.5 [in_i] 62.5 [in_i] eCW1 ([facility]) Body weight 146.8 [lb_av] 146.8 [lb_av] eCW1 ([facility]) Diastolic blood pressure 66 mm[Hg] 66 mm[Hg] eCW1 ([facility]) Systolic blood pressure 110 mm[Hg] 110 mm[Hg] e CW1 ([facility]) Body temperature 97.1 [degF] 97.1 [degF] eCW1 ( [facility]) Respiratory rate 18 /min 18 /min eCW1 ([facility]) Heart rate 88 /min 88 /min eCW1 ([facility]) Body mass index (BMI) [Ratio] 26.85 kg/m2 26.85 kg/m2 W1 ([facility]) Body height 62.5 [in_i] 62.5 [in_i] eCW1 ([facility]) Body weight 149.2 [lb_av] 149.2 [lb_av] eCW1 ([facility]) Diastolic blood pressure 66 mm[Hg] 66 mm[Hg] eCW1 ([facility]) Systolic blood pressure 118 mm[Hg] 118 mm[Hg] e CW1 ([facility]) Body temperature 97.5 [degF] 97.5 [degF] eCW1 ( [facility]) Respiratory rate 18 /min 18 /min eCW1 ([facility]) Heart rate 100 /min 100 /min eCW1 ([facility]) Body mass index (BMI) [Ratio] 28.00 kg/m2 28.00 kg/m2 eCW1 ([facility]) Body height 62.5 [in_i] 62.5 [in_i] eCW1 ([facility]) Body weight 155.6 [lb_av] 155.6 [lb_av] eCW1 ([facility]) Diastolic blood pressure 60 mm[Hg] 60 mm[Hg] eCW1 ([facility]) Systolic blood pressure 112 mm[Hg] 112 mm[Hg] e CW1 ([facility]) Body temperature 98.3 [degF] 98.3 [degF] eCW1 ( [facility]) Respiratory rate 18 /min 18 /min eCW1 ([facility]) Heart rate 96 /min 96 /min eCW1 ([facility]) Body mass index (BMI) [Ratio] 28.11 kg/m2 28.11 kg/m2 eCW1 ([facility]) Body height 62.5 [in_us] 62.5 [in_us] eCW1 ([facility]) Body weight Measured 156.2 [lb_av] 156.2 [lb_av ] eCW1 ([facility]) Respiratory rate 16 /min 16 /min MEDENT ( [facility]) Heart rate 64 /min 64 /min MEDENT ([facility]) Diastolic blood pressure 60 mm[Hg] 60 mm[Hg] MEDENT ([facility]) Systolic blood pressure 110 mm[Hg] 110 mm[Hg] M EDENT ([facility] ) Respiratory rate 16 /min 16 /min MEDENT ( [facility] ) Heart rate 76 /min 76 /min MEDENT ([facility] ) Diastolic blood pressure 80 mm[Hg] 80 mm[Hg] MEDENT ([facility] ) Systolic blood pressure 110 mm[Hg] 110 mm[Hg] M EDENT ([facility] ) Patient Treatment Plan of Care Planned Activity Planned Date Details Description Data Source (s) Acetaminophen 325 MG / Hydrocodone Bitartrate 5 MG Ora l Tablet 02/02/2020 12:00:00 AM EST eCW1 ([facility]) Acetaminophen 325 MG / Hydrocodone Bitartrate 5 MG Ora l Tablet 02/02/2020 12:00:00 AM EST eCW1 ([facility]) Acetaminophen 325 MG / Hydrocodone Bitartrate 5 MG Ora l Tablet 02/02/2020 12:00:00 AM EST eCW1 ([facility]) Acetaminophen 325 MG / Hydrocodone Bitartrate 5 MG Ora l Tablet 02/02/2020 12:00:00 AM EST eCW1 ([facility]) Acetaminophen 325 MG / Hydrocodone Bitartrate 5 MG Ora l Tablet 02/02/2020 12:00:00 AM EST eCW1 ([facility]) Acetaminophen 325 MG / Hydrocodone Bitartrate 5 MG Ora l Tablet 02/02/2020 12:00:00 AM EST eCW1 ([facility]) Acetaminophen 325 MG / Hydrocodone Bitartrate 5 MG Ora l Tablet 02/02/2020 12:00:00 AM EST eCW1 ([facility]) Acetaminophen 325 MG / Hydrocodone Bitartrate 5 MG Ora l Tablet 02/02/2020 12:00:00 AM EST eCW1 ([facility]) Acetaminophen 325 MG / Hydrocodone Bitartrate 5 MG Ora l Tablet 01/02/2020 12:00:00 AM EST eCW1 ([facility]) Acetaminophen 325 MG / Hydrocodone Bitartrate 5 MG Ora l Tablet 01/02/2020 12:00:00 AM EST eCW1 ([facility]) Acetaminophen 325 MG / Hydrocodone Bitartrate 5 MG Ora l Tablet 12/15/2019 12:00:00 AM EDT eCW1 ([facility]) Acetaminophen 325 MG / Hydrocodone Bitartrate 5 MG Ora l Tablet 12/15/2019 12:00:00 AM EDT eCW1 ([facility]) Acetaminophen 325 MG / Hydrocodone Bitartrate 5 MG Ora l Tablet 12/15/2019 12:00:00 AM EDT eCW1 ([facility]) Acetaminophen 325 MG / Hydrocodone Bitartrate 5 MG Ora l Tablet 12/15/2019 12:00:00 AM EDT eCW1 ([facility]) Albuterol Sulfate 108 (90 Base) MCG/ACT 11/27/2019 12:00:00 AM EDT eCW1 ([facility]) Prednisone 20 MG Oral Tablet 11/27/2019 12:00:00 AM EDT eCW1 ([facility]) besifloxacin 6 MG/ML Ophthalmic Suspension [Besivance] 06/03/2018 12:00:00 AM EDT WES (Bebeto Mcfadden MD [facility]) BromSite 0.075% Ophthalmic Solution 06/03/2018 12:00:00 AM EDT WES (Bebeto Mcfadden MD [facility]) prednisolone acetate 10 MG/ML Ophthalmic Suspension [P red Forte] 06/03/2018 12:00:00 AM EDT WES (Bebeto Mcfadden MD [facility])
[2020-03-11 12:18] LABS: BASO # 0.1 10^3/uL (0.0-0.2); BASO % 0.3 % (0.0-1.0); EOS # 1.9 10^3/uL (0.0-0.5); EOS % 9.9 % (0.0-3.0); HEMATOCRIT 39.5 % (36.0-47.0); HEMOGLOBIN 12.3 g/dl (12.0-15.5); LYMPH # 0.8 10^3/uL (1.5-5.0); MEAN CORPUSCULAR HEMOGLOBIN 26.6 pg (27.0-33.0); MEAN CORPUSCULAR HGB CONC 31.1 g/dl (32.0-36.5); MEAN CORPUSCULAR VOLUME 85.5 fl (80.0-96.0); MONO # 1.3 10^3/uL (0.0-0.8); MONO % 6.8 % (0.0-5.0); NEUTROPHILS # 14.6 10^3/uL (1.5-8.5); NEUTROPHILS % 77.9 % (36.0-66.0); PLATELET COUNT, AUTOMATED 286 10^3/uL (150-450); RED BLOOD COUNT 4.62 10^6/uL (4.00-5.40); WHITE BLOOD COUNT 18.8 10^3/uL (4.0-10.0)
[2020-03-11 12:36] LABS: BLOOD UREA NITROGEN 21 MG/DL (7-18); CALCIUM LEVEL 9.8 MG/DL (8.8-10.2); CARBON DIOXIDE LEVEL 29 MEQ/L (21-32); CHLORIDE LEVEL 101 MEQ/L (98-107); GLOMERULAR FILTRATION RATE > 60.0 (>39); GLUCOSE, FASTING 152 MG/DL (70-100); POTASSIUM SERUM 3.8 MEQ/L (3.5-5.1); SODIUM LEVEL 138 MEQ/L (136-145)
[2020-03-11] MEDS ORDERED: NS 1,000 ML IV ONE (13:00)
[2020-03-11 13:04] LABS: MAGNESIUM LEVEL 1.5 MG/DL (1.8-2.4)
[2020-03-11] MEDS ORDERED: SYMB16INH INH (13:12)
[2020-03-11 14:13] LABS: RSV AMPLIFICATION NEGATIVE (NEGATIVE)
[2020-03-11] MEDS ORDERED: MAG SULF 1GM/100ML (MAG RUN) 1 GM in IV 1 EA IV ONE (14:15)
--- OUTSIDE RECORDS SUMMARY | 2020-03-11 14:33 | CCD ---
Author Author [facility] Organization [facility] Address Unknown Phone Unavailable Care Team Providers Care Dx Board Operator Name Role Phone Jasiel Dela Cruz MD [...] JESUS ALICE DO Unavailable [phone] Nicole ED JESUS ALICE DO Unavailable [phone] Nicole [...] is protected by Article 27-F of the [facility] Public Health law. If you continue you may have access to information: Regarding HIV / AIDS; Provided by facilities licensed or operated by the [facility] Office of Mental Health; or Provided by the [facility] Office for People With Developmental Disabilities. If such information is present, then the following [facility] mandated warning applies: This information [...] law may result in a fine or care home sentence or both. A general authorization for the release of medical or other information is NOT sufficient authorization for further disc losure. Allergies and Adverse Reactions Type Description Substance Reaction Status Data Source(s ) aspirin Aspirin Aspirin Hives Active eCW1 ([facility]) Nickel Nickel Nickel Hives Active eCW1 ([facility]) Encounters Encounter Providers Location Date Indications Data Source(s ) [place] [address] [facility] [address] 03/05/2020 12:00:00 AM EST eCW1 ([facility]) [place] [address] [facility] [address] 03/04/2020 12:00:00 AM EST eCW1 ([facility]) [place] [address] [facility] [address] 03/04/2020 12:00:00 AM EST [facility]1 [facility]) [place] [address] [facility] [address] 02/27/2020 12:00:00 AM EST [facility]CW1 ([facility]) [place] [address] [facility] [address] 02/21/2020 12:00:00 AM EST [facility]CW1 ([facility]) [place] [address] [facility] [address] 02/21/2020 12:00:00 AM EST [facility]CW1 ([facility]) [place] [address] [facility] [address] 02/14/2020 12:00:00 AM EST eCW1 ([facility]) [place] [address] [facility] [address] 02/02/2020 12:00:00 AM EST [facility]CW1 ([facility]) Outpatient Referrer: Jasiel Dela Cruz MD SJP.[email or web address] 04/2019 12:00:00 AM EST - 01/25/2020 08:49:11 AM EST [facility] Unknown [address] [facility] [address] 01/24/2020 12:00:00 AM EST eCW1 ([facility]) Outpatient Attender: Briana Hawk/Víctor/Garrison/Chandler ndcarlos 01/11/2020 01:30:00 PM EST MEDENT ([facility] Outpatient Attender: Briana Hawk/Víctor/Garrison/Chandler ndcarlos 01/03/2020 12:30:00 PM EST MEDENT ([facility]) [place] [address] [facility] [address] 01/02/2020 12:00:00 AM EST [facility] Outpatient Admitter: Briana Hughes MDReferrer: Briana palafox MD 12/27/2019 12:00:00 AM EST Malignant neoplasm of unspecified part o f unspecified bronchus or lung [facility] Malignant neoplasm of unspecified part o f unspecified bronchus or lung Unknown [address] [facility] [address] 12/26/2019 12:00:00 AM EST eCW1 ([facility]) Unknown [address] [facility] [place] [address] 12/22/2019 12:00:00 AM EDT eCW1 ([facility]) Unknown [address] [facility] [place] [address] 12/20/2019 12:00:00 AM EDT eCW1 ([facility]) Unknown [address] [facility] [place] [address] 12/15/2019 12:00:00 AM EDT eCW1 ([facility]) Outpatient Attender: Jasiel Dela Cruz MD SJP.[email or web address]-SJP.RICARDA 11/23 12:00:00 AM EDT - 12/13/2019 11:05:43 AM EDT [facility] Outpatient Attender: Briana Hawk/Víctor/Garrison/Chandler browne 12/07/2019 09:30:00 AM EDT MEDENT ([facility]) Office Visit, Est Pt., Level 3 PC [address] [place] [address] 12/06/2019 12:00:00 AM EDT eCW1 ([facility]) Unknown [address] [facility] [address] 12/06/2019 12:00:00 AM EDT eCW1 ([facility]) Office Visit, Est Pt., Level 4 PC [address] [place] [address] 11/27/2019 12:00:00 AM EDT eCW1 ([facility]) Unknown [address] [facility] [address] 11/23/2019 12:00:00 AM EDT eCW1 ([facility]) Outpatient Attender: Carmen ALVARENGA [facility] 10/04/2019 08:15:00 AM EDT MEDENT ([facility] ) [place] [address] [facility] [address] 08/04/2019 12:00:00 AM EDT eCW1 ([facility]) Outpatient<td ID="encounterTypeDescripti onID0">1 Year Follow-Up</td><td>Alice De Jesus DO</td><td>Bebeto Valdivia MD [facility]</td><td>07/28/2019</td><td><content ID="encounterDiagnosisID0-0">Diabetes Mellitus Type 2 Without Complication</content>, <content ID="encounterDiagnosisID0-1">Dry Eye Syndrome</content>, <content ID="encounterDiagnosisID0-2">Pseudophakia</content>, <content ID="encounterDiagnosisID0-3">Assessment of Taking Medication For Diabetes Long- term Use of Oral Hypoglycemics</content>, <content ID="encounterDiagnosisID0- 4">Vitreous Disorders Degeneration</content></td> Attender: ALICE Vazquez MD [facility] 07/28/2019 07:20:00 AM EDT - 07/28/2019 07:47:00 AM EDT PseudophakiaVitreous Disorders Degenerat ionAssessment of Taking Medication For Diabetes Long-term Use of Oral HypoglycemicsDry Eye SyndromeDiabetes Mellitus Type 2 Without Complication WES (Bebeto Mcfadden MD [facility]) Pseudophakia Vitreous Disorders Degeneration Assessment of Taking Medication For Diab etes Long-term Use of Oral Hypoglycemics Dry Eye Syndrome Diabetes Mellitus Type 2 Without Complic ation Outpatient [address] [facility] [address] 07/20/2019 12:00:00 AM EDT eCW1 ([facility]) [facility] [place] [address] [facility] [address] 07/18/2019 12:00:00 AM EDT eCW1 ([facility]) [address] [address] 07/10/2019 12:00:00 AM EDT eCW1 ([facility]) [address] [address] 07/10/2019 12:00:00 AM EDT eCW1 ([facility]) [address] [address] 07/10/2019 12:00:00 AM EDT eCW1 ([facility]) Outpatient Attender: Carmen ALVARENGA [facility] n 06/27/2019 09:15:00 AM EDT MEDENT ([facility], ) [address] [address] 05/18/2019 12:00:00 AM EDT eCW1 ([facility]) Outpatient 05/09/2019 11:06:00 AM EDT [facility] [address] [address] 03/24/2019 12:00:00 AM EST eCW1 ([facility]) Outpatient Attender: Carmen ALVARENGA [facility] n 03/23/2019 10:00:00 AM EST MEDENT ([facility], ) [address] [address] 02/23/2019 12:00:00 AM EST eCW1 ([facility]) [address] [address] 02/07/2019 12:00:00 AM EST eCW1 ([facility]) Outpatient Attender: Carmen ALVARENGA [facility] n 02/03/2019 07:45:00 AM EST MEDENT ([facility]) Immunizations Vaccine Date Status Description Data Source(s) New in 2011. IIV4 11/29/2019 02:34:00 PM EDT completed MEDENT ([facility]) influenza, recombinant, quadrIvalent,injectable, prese rvative free 11/27/2019 01:05:00 PM EDT completed eCW1 ([facility]) influenza, recombinant, quadrIvalent,injectable, prese rvative free 11/27/2019 01:05:00 PM EDT completed eCW1 ([facility]) influenza, recombinant, quadrIvalent,injectable, prese rvative free 11/27/2019 01:05:00 PM EDT completed eCW1 ([facility]) influenza, recombinant, quadrIvalent,injectable, prese rvative free 11/27/2019 01:05:00 PM EDT completed eCW1 ([facility]) influenza, recombinant, quadrIvalent,injectable, prese rvative free 11/27/2019 01:05:00 PM EDT completed eCW1 ([facility]) influenza, recombinant, quadrIvalent,injectable, prese rvative free 11/27/2019 01:05:00 PM EDT completed eCW1 ([facility]) influenza, recombinant, quadrIvalent,injectable, prese rvative free 11/27/2019 01:05:00 PM EDT completed eCW1 ([facility]) influenza, recombinant, quadrIvalent,injectable, prese rvative free 11/27/2019 01:05:00 PM EDT completed eCW1 ([facility]) influenza, recombinant, quadrIvalent,injectable, prese rvative free 11/27/2019 01:05:00 PM EDT completed eCW1 ([facility]) influenza, recombinant, quadrIvalent,injectable, prese rvative free 11/27/2019 01:05:00 PM EDT completed eCW1 ([facility]) influenza, recombinant, quadrIvalent,injectable, prese rvative free 11/27/2019 01:05:00 PM EDT completed eCW1 ([facility]) influenza, recombinant, quadrIvalent,injectable, prese rvative free 11/27/2019 01:05:00 PM EDT completed eCW1 ([facility]) influenza, recombinant, quadrIvalent,injectable, prese rvative free 11/27/2019 01:05:00 PM EDT completed eCW1 ([facility]) influenza, recombinant, quadrIvalent,injectable, prese rvative free 11/27/2019 01:05:00 PM EDT completed eCW1 ([facility]) influenza, recombinant, quadrIvalent,injectable, prese rvative free 11/27/2019 01:05:00 PM EDT completed eCW1 ([facility]) influenza, recombinant, quadrIvalent,injectable, prese rvative free 11/27/2019 01:05:00 PM EDT completed eCW1 ([facility]) influenza, recombinant, quadrIvalent,injectable, prese rvative free 11/27/2019 01:05:00 PM EDT completed eCW1 ([facility]) Medications Medication Brand Name Start Date Product Form Dose Route Admi nistrative Instructions Pharmacy Instructions Status Indications Reaction Description Data Source(s) Acetaminophen 325 MG / Hydrocodone Mariaelena trate 5 MG Oral Tablet Hydrocodone- Acetaminophen 5-325 MG Hydrocodone-Acetaminophen 5-325 MG 02/02/2020 12:00:00 AM EST 1.0 {tablet_as_needed} active Hydrocodone-Acetaminophen 5-325 MG eCW1 ([facility]) Acetaminophen 325 MG / Hydrocodone Mariaelena trate 5 MG Oral Tablet Hydrocodone- Acetaminophen 5-325 MG Hydrocodone-Acetaminophen 5-325 MG 02/02/2020 12:00:00 AM EST 1.0 {tablet_as_needed} active Hydrocodone-Acetaminophen 5-325 MG eCW1 ([facility]) Acetaminophen 325 MG / Hydrocodone Mariaelena trate 5 MG Oral Tablet Hydrocodone- Acetaminophen 5-325 MG Hydrocodone-Acetaminophen 5-325 MG 02/02/2020 12:00:00 AM EST 1.0 {tablet_as_needed} active Hydrocodone-Acetaminophen 5-325 MG eCW1 ([facility]) Acetaminophen 325 MG / Hydrocodone Mariaelena trate 5 MG Oral Tablet Hydrocodone- Acetaminophen 5-325 MG Hydrocodone-Acetaminophen 5-325 MG 02/02/2020 12:00:00 AM EST 1.0 {tablet_as_needed} active Hydrocodone-Acetaminophen 5-325 MG eCW1 ([facility]) Acetaminophen 325 MG / Hydrocodone Mariaelena trate 5 MG Oral Tablet Hydrocodone- Acetaminophen 5-325 MG Hydrocodone-Acetaminophen 5-325 MG 02/02/2020 12:00:00 AM EST 1.0 {tablet_as_needed} active Hydrocodone-Acetaminophen 5-325 MG eCW1 ([facility]) Acetaminophen 325 MG / Hydrocodone Mariaelena trate 5 MG Oral Tablet Hydrocodone- Acetaminophen 5-325 MG Hydrocodone-Acetaminophen 5-325 MG 02/02/2020 12:00:00 AM EST 1.0 {tablet_as_needed} active Hydrocodone-Acetaminophen 5-325 MG eCW1 ([facility]) Acetaminophen 325 MG / Hydrocodone Mariaelena trate 5 MG Oral Tablet Hydrocodone- Acetaminophen 5-325 MG Hydrocodone-Acetaminophen 5-325 MG 02/02/2020 12:00:00 AM EST 1.0 {tablet_as_needed} active Hydrocodone-Acetaminophen 5-325 MG eCW1 ([facility]) Acetaminophen 325 MG / Hydrocodone Mariaelena trate 5 MG Oral Tablet Hydrocodone- Acetaminophen 5-325 MG Hydrocodone-Acetaminophen 5-325 MG 02/02/2020 12:00:00 AM EST 1.0 {tablet_as_needed} active Hydrocodone-Acetaminophen 5-325 MG eCW1 ([facility]) Furosemide 20 MG Oral Tablet Furosemide 01/23/2020 12:00:00 AM EST ORAL active MEDENT ([facility], ) Acetaminophen 325 MG / Hydrocodone Bitartrate 5 MG Ora l Tablet Hydrocodone-Acetaminophen 01/11/2020 12:00:00 AM EST ORAL active MEDENT ([facility], ) Acetaminophen 325 MG / Hydrocodone Mariaelena trate 5 MG Oral Tablet Hydrocodone- Acetaminophen 5-325 MG Hydrocodone-Acetaminophen 5-325 MG 01/02/2020 12:00:00 AM EST 1.0 {tablet_as_needed} active Hydrocodone-Acetaminophen 5-325 MG eCW1 ([facility]) Acetaminophen 325 MG / Hydrocodone Mariaelena trate 5 MG Oral Tablet Hydrocodone- Acetaminophen 5-325 MG Hydrocodone-Acetaminophen 5-325 MG 01/02/2020 12:00:00 AM EST 1.0 {tablet_as_needed} active Hydrocodone-Acetaminophen 5-325 MG eCW1 ([facility]) Acetaminophen 325 MG / Hydrocodone Mariaelena trate 5 MG Oral Tablet Hydrocodone- Acetaminophen 5-325 MG Hydrocodone-Acetaminophen 5-325 MG 12/15/2019 12:00:00 AM EDT 1.0 {tablet_as_needed} active Hydrocodone-Acetaminophen 5-325 MG eCW1 ([facility]) Acetaminophen 325 MG / Hydrocodone Mariaelena trate 5 MG Oral Tablet Hydrocodone- Acetaminophen 5-325 MG Hydrocodone-Acetaminophen 5-325 MG 12/15/2019 12:00:00 AM EDT 1.0 {tablet_as_needed} active Hydrocodone-Acetaminophen 5-325 MG eCW1 ([facility]) Acetaminophen 325 MG / Hydrocodone Mariaelena trate 5 MG Oral Tablet Hydrocodone- Acetaminophen 5-325 MG Hydrocodone-Acetaminophen 5-325 MG 12/15/2019 12:00:00 AM EDT 1.0 {tablet_as_needed} active Hydrocodone-Acetaminophen 5-325 MG eCW1 ([facility]) Acetaminophen 325 MG / Hydrocodone Mariaelena trate 5 MG Oral Tablet Hydrocodone- Acetaminophen 5-325 MG Hydrocodone-Acetaminophen 5-325 MG 12/15/2019 12:00:00 AM EDT 1.0 {tablet_as_needed} active Hydrocodone-Acetaminophen 5-325 MG eCW1 ([facility]) 30 ACTUAT fluticasone furoate 0.1 MG/ACT UAT / vilanterol 0.025 MG/ACTUAT Dry Powder Inhaler [Breo] Breo Ellipta 12/07/2019 12:00:00 AM EDT active MEDENT ([facility]) Prednisone 20 MG Oral Tablet PredniSONE 20 MG PredniSONE 20 MG 11/27/2019 12:00:00 AM EDT 1.0 {tablet} active Pr edniSONE 20 MG eCW1 ([facility]) Albuterol Sulfate 108 (90 Base) MCG/ACT UNK 11/27/2019 12: 00:00 AM EDT 1.0 {puff_as_needed} active Albuterol Sulfa te 108 (90 Base) MCG/ACT eCW1 ([facility]) Prednisone 20 MG Oral Tablet PredniSONE 20 MG PredniSONE 20 MG 11/27/2019 12:00:00 AM EDT 1.0 {tablet} active Pr edniSONE 20 MG eCW1 ([facility]) Albuterol Sulfate 108 (90 Base) MCG/ACT UNK 11/27/2019 12: 00:00 AM EDT 1.0 {puff_as_needed} active Albuterol Sulfa te 108 (90 Base) MCG/ACT eCW1 ([facility]) Prednisone 20 MG Oral Tablet PredniSONE 20 MG PredniSONE 20 MG 11/27/2019 12:00:00 AM EDT 1.0 {tablet} active Pr edniSONE 20 MG eCW1 ([facility]) Prednisone 20 MG Oral Tablet PredniSONE 20 MG PredniSONE 20 MG 11/27/2019 12:00:00 AM EDT 1.0 {tablet} active Pr edniSONE 20 MG eCW1 ([facility]) Prednisone 20 MG Oral Tablet PredniSONE 20 MG PredniSONE 20 MG 11/27/2019 12:00:00 AM EDT 1.0 {tablet} active Pr edniSONE 20 MG eCW1 ([facility]) Prednisone 20 MG Oral Tablet PredniSONE 20 MG PredniSONE 20 MG 11/27/2019 12:00:00 AM EDT 1.0 {tablet} active Pr edniSONE 20 MG eCW1 ([facility]) Prednisone 20 MG Oral Tablet PredniSONE 20 MG PredniSONE 20 MG 11/27/2019 12:00:00 AM EDT 1.0 {tablet} active Pr edniSONE 20 MG eCW1 ([facility]) Prednisone 20 MG Oral Tablet PredniSONE 20 MG PredniSONE 20 MG 11/27/2019 12:00:00 AM EDT 1.0 {tablet} active Pr edniSONE 20 MG eCW1 ([facility]) Prednisone 20 MG Oral Tablet PredniSONE 20 MG PredniSONE 20 MG 11/27/2019 12:00:00 AM EDT 1.0 {tablet} active Pr edniSONE 20 MG eCW1 ([facility]) Albuterol Sulfate 108 (90 Base) MCG/ACT UNK 11/27/2019 12: 00:00 AM EDT 1.0 {puff_as_needed} active Albuterol Sulfa te 108 (90 Base) MCG/ACT eCW1 ([facility]) Albuterol Sulfate 108 (90 Base) MCG/ACT UNK 11/27/2019 12: 00:00 AM EDT 1.0 {puff_as_needed} active Albuterol Sulfa te 108 (90 Base) MCG/ACT eCW1 ([facility]) Prednisone 20 MG Oral Tablet PredniSONE 20 MG PredniSONE 20 MG 11/27/2019 12:00:00 AM EDT 1.0 {tablet} active Pr edniSONE 20 MG eCW1 ([facility]) Prednisone 20 MG Oral Tablet PredniSONE 20 MG PredniSONE 20 MG 11/27/2019 12:00:00 AM EDT 1.0 {tablet} active Pr edniSONE 20 MG eCW1 ([facility]) Albuterol Sulfate 108 (90 Base) MCG/ACT UNK 11/27/2019 12: 00:00 AM EDT 1.0 {puff_as_needed} active Albuterol Sulfa te 108 (90 Base) MCG/ACT eCW1 ([facility]) Albuterol Sulfate 108 (90 Base) MCG/ACT UNK 11/27/2019 12: 00:00 AM EDT 1.0 {puff_as_needed} active Albuterol Sulfa te 108 (90 Base) MCG/ACT eCW1 ([facility]) Albuterol Sulfate 108 (90 Base) MCG/ACT UNK 11/27/2019 12: 00:00 AM EDT 1.0 {puff_as_needed} active Albuterol Sulfa te 108 (90 Base) MCG/ACT eCW1 ([facility]) Prednisone 20 MG Oral Tablet PredniSONE 20 MG PredniSONE 20 MG 11/27/2019 12:00:00 AM EDT 1.0 {tablet} active Pr edniSONE 20 MG eCW1 ([facility]) Prednisone 20 MG Oral Tablet PredniSONE 20 MG PredniSONE 20 MG 11/27/2019 12:00:00 AM EDT 1.0 {tablet} active Pr edniSONE 20 MG eCW1 ([facility]) Prednisone 20 MG Oral Tablet PredniSONE 20 MG PredniSONE 20 MG 11/27/2019 12:00:00 AM EDT 1.0 {tablet} active Pr edniSONE 20 MG eCW1 ([facility]) Prednisone 20 MG Oral Tablet PredniSONE 20 MG PredniSONE 20 MG 11/27/2019 12:00:00 AM EDT 1.0 {tablet} active Pr edniSONE 20 MG eCW1 ([facility]) Albuterol Sulfate 108 (90 Base) MCG/ACT UNK 11/27/2019 12: 00:00 AM EDT 1.0 {puff_as_needed} active Albuterol Sulfa te 108 (90 Base) MCG/ACT eCW1 ([facility]) Albuterol Sulfate 108 (90 Base) MCG/ACT UNK 11/27/2019 12: 00:00 AM EDT 1.0 {puff_as_needed} active Albuterol Sulfa te 108 (90 Base) MCG/ACT eCW1 ([facility]) Albuterol Sulfate 108 (90 Base) MCG/ACT UNK 11/27/2019 12: 00:00 AM EDT 1.0 {puff_as_needed} active Albuterol Sulfa te 108 (90 Base) MCG/ACT eCW1 ([facility]) Prednisone 20 MG Oral Tablet PredniSONE 20 MG PredniSONE 20 MG 11/27/2019 12:00:00 AM EDT 1.0 {tablet} active Pr edniSONE 20 MG eCW1 ([facility]) Prednisone 20 MG Oral Tablet PredniSONE 20 MG PredniSONE 20 MG 11/27/2019 12:00:00 AM EDT 1.0 {tablet} active Pr edniSONE 20 MG eCW1 ([facility]) gabapentin 100 MG Oral Capsule Gabapentin 02/03/2019 12:00:00 AM EST ORAL active MEDENT ([facility]) prednisolone acetate 10 MG/ML Ophthalmic Suspension [Pred Forte] Pred Forte 1% Ophthalmic Suspension Pred Forte 1% Ophthalmic Suspension 06/03/2018 12:00:0 0 AM EDT aborted predniso lone acetate 10 MG/ML Ophthalmic Suspension [Pred Forte] WES (Bebeto Mcfadden MD [facility]) besifloxacin 6 MG/ML Ophthalmic Suspensi on [Besivance] Besivance 0.6% Ophthalmic Suspension Besivance 0.6% Ophthalmic Suspension 06/03/2018 12:00:00 AM EDT aborted besifloxacin 6 MG/ML Ophthalmic Suspension [Besivance] WES (Bebeto Mcfadden MD [facility]) BromSite 0.075% Ophthalmic Solution BromSite 0.075% Ophthalm ic Solution 06/03/2018 12:00:00 AM EDT aborted bromfenac 0.75 MG/ML Ophthalmic Solution [Bromsite] WES (Bebeto Mcfadden MD [facility]) Insurance Providers Payer name Policy type / Coverage type Policy ID Covered democrat ID Covered democrat's relationship to toscano Policy [place] Plan Information MEDICARE COMPLETE [id number] SP [id number] MEDICARE COMPLETE-[facility] [id number] S [id number] [facility] MEDICARE COMPLETE G [id number] Self [id number] [facility] [id number] Self [id number] MEDICARE COMPLETE [id number] SP [id number] [facility] MEDICAID [id number] [place] [id number] MEDICARE COMPLETE [id number] SP [id number] MEDICARE COMPLETE [id number] SP [id number] ANSI-Medicare Part B [id number] ANSI-Medicare Part B [id number] Medicare Solutions Commercial [id number] Self [id number] ANSI-Medicare Part B [id number] ANSI-Medicare Part B [id number] ANSI-Medicare Part B [id number] ANSI-Medicare Part B [id number] ANS-Medicare Part B [id number] ANSI-Medicare Part B [id number] ANSI-Medicare Part B [id number] ANSI-Medicare Part B [id number] ANS-Medicare Part B [id number] MEDICARE COMPLETE [id number] Problems, Conditions, and Diagnoses Code Display Name Description Problem Type Effective Dates Data Source(s) F43.21 [id number] Situational depression Problem 03/05/2020 12 :00:00 AM EST eCW1 ([facility]) F32.9 [id number] Reactive depression (situational) Problem 03/05/2020 12:00:00 AM EST eCW1 ([facility]) G89.3 [id number] Pain, cancer Problem 12/15/2019 12:00:00 AM EDT eCW1 ([facility]) J84.9 [id number] Interstitial lung disease Problem 11/28/2019 12:00:00 AM EDT eCW1 ([facility]) K21.9 Gastroesophageal reflux disease Gastroesophageal reflu x disease Problem 11/27/2019 12:00:00 AM EDT eCW1 ([facility]) G89.29 [id number] Other chronic pain Problem 07/20/2019 12:00: 00 AM EDT eCW1 ([facility]) E78.2 [id number] Mixed hyperlipidemia Problem 07/19/2019 12:0 0:00 AM EDT eCW1 ([facility]) I10 Essential hypertension Essential (primary) hypertensio n Problem 03/24/2019 12:00:00 AM EST eCW1 ([facility]) I10 Essential hypertension Essential (primary) hypertensio n Problem 03/24/2019 12:00:00 AM EST eCW1 ([facility]) I06.0 Rheumatic aortic stenosis Rheumatic aortic stenosis Di agnosis 01/25/2020 07:57:25 AM [facility] Z01.810 Encounter for preprocedural cardiovascul ar examination Encounter for preprocedural cardiovascul Diagnosis 01/25/2020 07:57:25 AM [facility] C34.90 Malignant neoplasm of unspecified part o f unspecified bronchus or lung Malignant neoplasm of unspecified part of unspecified bronchus or lung Diagnosis 12/27/2019 02:06:00 PM [facility] Surgeries/Procedures Procedure Description Date Indications Data Source(s) Bronchoscopy W/Brushing Or Protected Brushings 020 12:00:00 AM EST MEDENT ([facility], ) Bronchoscopy W/Bronchial Alveolar Lavage 12/27/2019 12 :00:00 AM EST [facility] ([facility], ) Bronchoscopy W/Transbronchial Lung Biopsy 12/27/2019 1 2:00:00 AM EST [facility] ([facility], ) With Endobronchial Ultrasound Guided 12/27/2019 12:00: 00 AM EST [facility] ([facility], ) Spirometry 12/07/2019 12:00:00 AM EDT M EDENT ([facility], ) Aerosol Or Vapor Inhalations 12/07/2019 12:00:00 AM ED T [facility] ([facility], ) Immunization: Flublok Quadrivalent (18 years & older) 0.5mL IM (Influenza) 11/27/2019 12:00:00 AM EDT eCW1 ([facility]) History of the retina was normal 07/08/2018 History of the retina was normal 07/08/2018 07/28/2019 12:00:00 AM EDT [facility] (Bartolo Mcfadden MD [facility]) Currently wearing eyeglasses Currently wearing eyeglasses 12:00:00 AM EDT WES (Bebeto Mcfadden MD [facility]) History of diabetes mellitus Dx: around , A1c: 7.2 with Denise Soosairaj CLINICAL DOCUMENTATION CONSULTANT , FBS: 114 this morning History of diabetes mellitus Dx: around , A1c: 7.2 with Denise Soosairaj CLINICAL DOCUMENTATION CONSULTANT , FBS: 114 this morning 07/28/2019 12:00:00 AM EDT WES (Bebeto liu MD [facility]) Intermediate Eye Exam Established Patient Intermediate Eye Exam Established Patient 07/28/2019 12:00:00 AM EDT WES (Bartolo Mcfadden MD [facility]) History of extracapsular cataract extrac tion PCIOL OS 05/26/[address] De Jesus ~PCIOL OD 06/16/[address] De Jesus History of extracapsular cataract extraction PCIOL OS 05/26/[address] De Jesus ~PCIOL OD 06/16/[address] De Jesus 05/22/2019 12:00:00 AM EDT WES (Bartolo Mcfadden MD [facility]) History of diabetes mellitus Dx: around , A 1c: 7.8, FBS: 160 History of diabetes mellitus Dx: around , A1c: 7.8, FBS: 160 05/22/2019 12:00:00 AM EDT WES (Bebeto Mcfadden MD [facility]) History of extracapsular cataract extrac tion PCIOL OS 05/26/[address] De Jesus ~PCIOL OD 06/16/[address] De Jesus History of extracapsular cataract extraction PCIOL OS 05/26/[address] De Jesus ~PCIOL OD 06/16/[address] De Jesus 05/22/2019 12:00:00 AM EDT WES (Bartolo Mcfadden MD [facility]) History of extracapsular cataract extrac tion PCIOL OS 05/26/[address] De Jesus History of extracapsular cataract extrac tion PCIOL OS 05/26/[address] De Jesus 05/22/2019 12:00:00 AM EDT WES (Bartolo Mcfadden MD [facility]) History of diabetes mellitus Dx: around , A 1c: 7.8, FBS: 160 History of diabetes mellitus Dx: around , A1c: 7.8, FBS: 160 05/22/2019 12:00:00 AM EDT WES (Bebeto Mcfdaden MD [facility]) History of extracapsular cataract extrac tion PCIOL OS 05/26/[address] De Jesus ~PCIOL OD 06/16/[address] De Jesus History of extracapsular cataract extraction PCIOL OS 05/26/[address] De Jesus ~PCIOL OD 06/16/[address] De Jesus 05/22/2019 12:00:00 AM EDT WES (Bartolo Mcfadden MD [facility]) Surgical / procedural history 1985, Broken left wrist 1996, Right knee replacement 2014 Surgical / procedural history 1985, Broken left wrist 1996, Right knee replacement 201405/12/2019 12:00:00 AM EDT WES (Bebeto Mcfadden MD [facility]) History of diabetes mellitus Dx: around , A 1c: 7.8, FBS: 160 History of diabetes mellitus Dx: around , A1c: 7.8, FBS: 160 05/12/2019 12:00:00 AM EDT WES (Bebeto Mcfadden MD [facility]) Surgical / procedural history 1985, Broken left wrist 1996, Right knee replacement 2014 Surgical / procedural history 1985, Broken left wrist 1996, Right knee replacement 201405/12/2019 12:00:00 AM EDT WES (Bebeto Mcfadden MD [facility]) No recent change in medical history No recent change in medi leticia history 05/12/2019 12:00:00 AM EDT WES (Bebeto liu MD [facility]) History of diabetes mellitus Dx: around , A1 c: 7.8, FBS: 160 History of diabetes mellitus Dx: around , A1c: 7.8, FBS: 160 05/12/2019 12:00:00 AM EDT WES (Bebeto Mcfadden MD [facility]) Surgical / procedural history 1985, Broken left wrist 1996, Right knee replacement 2014 Surgical / procedural history 1985, Broken left wrist 1996, Right knee replacement 2015 05/12/2019 12:00:00 AM EDT WES (Bebeto Mcfadden MD [facility]) History of extracapsular cataract extraction OS [address] De Jesus History of extracapsular cataract extraction OS 05/26/[address] De Jesus 05/12/2019 12:00:00 AM EDT WES (Bebeto liu MD [facility]) History of diabetes mellitus Dx: around , A1 c: 7.8, FBS: 160 History of diabetes mellitus Dx: around , A1c: 7.8, FBS: 160 05/12/2019 12:00:00 AM EDT WES (Bebeto Mcfadden MD [facility]) Recent change in medical history Cataract surgery OS 05/26/[address] De Jesus Recent change in medical history Cataract surgery OS 05/26/[address] De Jesus 05/12/2019 12:00:00 AM EDT WES (Bebeto liu MD [facility]) Surgical / procedural history 1985, Broken left wrist 1996, Right knee replacement 2014 Surgical / procedural history 1985, Broken left wrist 1996, Right knee replacement 201405/12/2019 12:00:00 AM EDT WES (Bebeto Mcfadden MD [facility]) History of diabetes mellitus Dx: around , A1 c: 7.8, FBS: 160 History of diabetes mellitus Dx: around , A1c: 7.8, FBS: 160 05/12/2019 12:00:00 AM EDT WES (Bebeto Mcfadden MD [facility]) Surgical / procedural history 1985, Broken left wrist 1996, Right knee replacement 2014 Surgical / procedural history 1985, Broken left wrist 1996, Right knee replacement 201405/12/2019 12:00:00 AM EDT WES (Bebeto Mcfadden MD [facility]) History of diabetes mellitus Dx: around , A1c: 7.8, FBS: yesterday was around 160 History of diabetes mellitus Dx: around , A1c: 7.8, FBS: yesterday was around 160 05/12/2019 12:00:00 AM EDT WES (Bebeto Mcfadden MD [facility]) Surgical / procedural history 1985, Broken left wrist 1995, Right knee replacement 2014 Surgical / procedural history 1985, Broken left wrist 1996, Right knee replacement 201405/12/2019 12:00:00 AM EDT WES (Bebeto Mcfadden MD [facility]) No recent change in medical history No recent change in medi leticia history 05/12/2019 12:00:00 AM EDT WES (Bebeto liu MD [facility]) Surgical / procedural history 1985, Broken left wrist 1995, Right knee replacement 2014 Surgical / procedural history 1985, Broken left wrist 1996, Right knee replacement 201405/12/2019 12:00:00 AM EDT WES (Bebeto Mcfadden MD [facility]) Office Visit, Est Pt., Level 2 FC 03/24/2019 12:00:00 AM EST eCW1 ([facility]) Office Visit, Est Pt., Level 4 PC 03/24/2019 12:00:00 AM EST eCW1 ([facility]) Results ID Date Data Source [id number] 02/27/2020 03:48:00 PM EST [facility] Name Value Range Interpretation Code Description Data Madyson rce(s) Supporting Document(s) SARS-CoV-2 (COVID 19) NEGATIVE - SARS-CoV-2 (COVID19) [facility] This lab was ordered by [facility] a nd reported by [facility]. ID Date Data Source [id number] 01/27/2020 04:23:00 PM EST [facility] Name Value Range Interpretation Code Description Data Madyson rce(s) Supporting Document(s) SARS-CoV-2 (COVID 19) [facility] This lab was ordered by [facility] a nd reported by [facility]. ID Date Data Source [id number] 01/26/2020 11:40:00 AM EST [facility] ([facility], ) Name Value Range Interpretation Code Description Data Madyson rce(s) Supporting Document(s) Natriuretic peptide.B prohormone N-Terminal [Mass/volu me] in Serum or Plasma 713 pg/mL Above high normal [facility] ([facility], ) ID Date Data Source [id number] 01/26/2020 11:40:00 AM EST [facility] ([facility]) Name Value Range Interpretation Code Description Data Madyson rce(s) Supporting Document(s) Glucose, Fasting 142 mg/dL 70-100 Above high normal [facility] ([facility]) Blood Urea Nitrogen 15 mg/dL 7-18 Normal (applies to non-nume blaire results) [facility] ([facility]) Creatinine For GFR 0.51 mg/dL 0.55-1.30 Below low normal [facility] ([facility]) Glomerular Filtration Rate Laboratory test result Normal (applies to non- numeric results) [facility] ([facility]) <content>Units are mL/min/1.73 m2</content>
<content></content>
<content>Chronic Kidney Disease Staging per NKF:</content>
<content></content>
<content>Stage I & II GFR >=60 Normal to Mildly Decreased</content>
<content>Stage III GFR 30- 59 Moderately Decreased</content>
<content>Stage IV GFR 15-29 Severely Decreased</content>
<content>Stage V GFR <15 Very Little GFR Left</content>
<content>ESRD GFR <15 on POTLINE MONITOR</content>
<content></content> Potassium Serum 4.0 meq/L 3.5-5.1 Normal (applies to non-numeric results) [facility] ([facility]) Sodium Level 140 meq/L 136-145 Normal (applies to non-numeric res ults) [facility] ([facility]) Carbon Dioxide Level 33 meq/L 21-32 Above high normal [facility] Anion Gap 6 meq/L 8-16 Below low normal [facility] ( [facility]) Chloride Level 101 meq/L 98-107 Normal (applies to non-numeric r esults) [facility] ([facility]) Calcium Level 8.7 mg/dL 8.8-10.2 Below low normal [facility] ([facility]) ID Date Data Source [id number] 01/09/2020 10:39:00 AM EST [facility] ([facility]) Name Value Range Interpretation Code Description Data Madyson rce(s) Supporting Document(s) Urea nitrogen [Mass/volume] in Serum or Plasma 12 mg/dL 7 -18 Normal (applies to non-numeric results) [facility] ([facility]) ID Date Data Source [id number] 01/09/2020 10:39:00 AM [facility] ([facility]) Name Value Range Interpretation Code Description Data Madyson rce(s) Supporting Document(s) Glomerular Filtration Rate Laboratory test result Normal (applies to non- numeric results) [facility] ([facility]) <content>Units are mL/min/1.73 m2</content>
<content></content>
<content>Chronic Kidney Disease Staging per NKF:</content>
<content></content>
<content>Stage I & II GFR >=60 Normal to Mildly Decreased</content>
<content>Stage III GFR 30- 59 Moderately Decreased</content>
<content>Stage IV GFR 15-29 Severely Decreased</content>
<content>Stage V GFR <15 Very Little GFR Left</content>
<content>ESRD GFR <15 on POTLINE MONITOR</content>
<content></content> Creatinine For GFR 0.47 mg/dL 0.55-1.30 Below low normal [facility] ([facility]) ID Date Data Source [id number] 01/05/2020 11:01:00 AM EST [facility] ([facility]) Name Value Range Interpretation Code Description Data Madyson rce(s) Supporting Document(s) Gram Stain Laboratory test result Normal (applies to non-n umeric results) [facility] ([facility]) MANY RBCS MODERATE WBCS NO ORGANISMS SEEN Body Fluid Culture Laboratory test result [facility] ([facility]) If aerobic or anaerobic growth is detected within the next 7-21 days, an addendum will follow. . . FULL REPORT IN LAB NOTES ([facility]CW and [facility]). NO GROWTH AEROBICALLY ID Date Data Source [id number] 01/05/2020 11:01:00 AM EST [facility] ([facility]) Name Value Range Interpretation Code Description Data Madyson rce(s) Supporting Document(s) PH Body Fluid 7.399 units Normal (applies to non-numeric r esults) [facility]) Source, Body Fluid pH Laboratory test result Nor mal (applies to non-numeric results) [facility]) ID Date Data Source [id number] 01/05/2020 11:01:00 AM EST [facility]) Name Value Range Interpretation Code Description Data Madyson rce(s) Supporting Document(s) Source, Body Fluid Amylase Laboratory test result Normal (applies to non- numeric results) [facility]) Amylase, Body Fluid 14 U/L Normal (applies to non-nume blaire results) [facility]) ID Date Data Source [id number] 01/05/2020 11:01:00 AM EST [facility] ([facility]) Name Value Range Interpretation Code Description Data Madyson rce(s) Supporting Document(s) Glucose, Body Fluid 120 mg/dL Normal (applies to non-nume blaire results) [facility]) Source, Body Fluid Glucose Laboratory test result Normal (applies to non- numeric results) [facility]) ID Date Data Source [id number] 01/05/2020 11:01:00 AM EST [facility] ([facility]) Name Value Range Interpretation Code Description Data Madyson rce(s) Supporting Document(s) Source, Body Fluid LDH Laboratory test result No rmal (applies to non-numeric results) [facility]) LDH, Body Fluid 188 U/L Normal (applies to non-numeric results) [facility] ([facility]) ID Date Data Source [id number] 01/05/2020 11:01:00 AM EST [facility] ([facility]) Name Value Range Interpretation Code Description Data Madyson rce(s) Supporting Document(s) Total Protein, Body Fluid 4.1 g/dL Normal (applies to no n-numeric results) [facility] ([facility]) Source, Body Fluid Tot Protein Laboratory test result Normal (applies to non- numeric results) [facility] ([facility]) ID Date Data Source [id number] 01/05/2020 11:01:00 AM EST [facility]) Name Value Range Interpretation Code Description Data Madyson rce(s) Supporting Document(s) Bacteria identified in Unspecified specimen by Anaerob e culture Laboratory test result [facility]) If anaerobic or aerobic growth is detected within the next 7-21 days, an addendum will follow. . . FULL REPORT IN LAB NOTES ([facility]CW and [facility]). NO GROWTH ANAEROBICALLY ID Date Data Source [id number] 01/05/2020 11:01:00 AM EST [facility] ([facility]) Name Value Range Interpretation Code Description Data Madyson rce(s) Supporting Document(s) Source, Body Fluid Laboratory test result Normal (applies to non-numeric results) [facility] ([facility]) Pleural FL Color Laboratory test result Normal ( applies to non-numeric results) [facility] ([facility]) RBC Body Fluid 26 10 Normal (applies to non-numeric r esults) [facility] ([facility]) Appearance, Body Fluid Laboratory test result No rmal (applies to non-numeric results) [facility] ([facility]) WBC Body Fluid 634 /uL 0-10 Above high normal [facility] ([facility]) BF Mononuclear Cell % 94.6 % 0-0 Above high normal [facility] ([facility]) BF Polymorphonuclear Cell % 5.4 % 0-0 Above high normal [facility] ([facility]) ID Date Data Source [id number] 01/05/2020 11:01:00 AM EST [facility] ([facility]) Name Value Range Interpretation Code Description Data Madyson rce(s) Supporting Document(s) Amylase [Enzymatic activity/volume] in Body fluid [facility] res [facility] ID Date Data Source [id number] 01/05/2020 09:21:00 AM EST [facility] ([facility]) Name Value Range Interpretation Code Description Data Madyson rce(s) Supporting Document(s) Surgical pathology study Laboratory test [facility] FINAL DIAGNOSIS Right pleural fluid, cell-block: No malignant cells identified. Inflammatory cells and mesothelial cells. TTF-1 stain used in evaluation. See specimen [id number] 01/09/2020 - 1112 CLINICAL DIAGNOSIS Right pleural effusion 01/08/202009 GROSS DIAGNOSIS Received 400 ml of right pleural fluid for cell block. -OA 01/09/20201112 Signed LILIYA WASHINGTON MD 01/09/2020 1113 ID Date Data Source [id number] 01/05/2020 09:21:00 AM EST [facility] ([facility]) Name Value Range Interpretation Code Description Data Madyson rce(s) Supporting Document(s) Microscopic observation [Identifier] in Unspecified specimen by Non- gynecological cytology method Laboratory test result [facility] SPECIMEN: Pleural fluid 400ml Red SPECIMEN ADEQUACY: Satisfactory for evaluation CATEGORIZATION: Rare Clusters of Atypical Cells DESCRIPTIONS: Few groups of atypical cells exhbiting irregular nuclei with prominent nucleoli, suspicious for metastatic carcinoma. COMMENTS: Clinical correlation is recommended. 01/09/2020 112 Signed FIORELLA ERNANDEZ(ASCP) 01/08/2020 0739 (Prelim) Signed LILIYA WASHINGTON MD 01/09/2020 1122 ID Date Data Source [id number] 12/27/2019 02:30:00 PM EST [facility] ([facility]) Name Value Range Interpretation Code Description Data Madyson rce(s) Supporting Document(s) Surgical pathology study Laboratory test result [facility] ([facility], ) Anatomic Molecular Pathology Report Name: OPAL VALENZUELA Collection Date: 12/27/2019 00:00 Received Date: 12/29/2019 14:28 Physician(s): BRIANA HUGHES MD Haghir, Shahandeh MD Copy To: BRIANA HUGHES MD Specimen(s) Received A: Right lung, lower lobe, Formalin Block [id number] received from [facility] in [place], [place] ROS1 by FISH Diagnosis TEST: ROS1 [...] its performance characteristics were determined by the [facility], and it has been authorized for clinical use by [facility]. The test has not been cleared or approved by the U.S. Food and Drug Administration. The analyte specific reagents used in this assay do not require FDA approval. Processed at [facility], [address] [place] [address] and reported at [facility], [address] [place] [address]. REFERENCES: 1. ALEM Che, Ava AT, Elba GALVAN et al. Identifying and Targeting ROS1 Gene Fusions in NonSmall Cell Lung Cancer. Clin Cancer Res 2012; 18(17); 60270917. 2. Carlin, [place] AT. Novel Targets i n Non-Small Cell Lung Cancer: ROS-1 and RET fusions. The Oncologist. 2013;18:865-875. This report may include one or more immunohistochemical stain results that use analyte specific reagents. All positive and negative controls have been reviewed by the attending pathologist and are satisfactory. The tests were developed and their performance characteristics determined by [facility] Pathology department. They have not been cleared or approved by the US Food and Drug Administration. The FDA has determined that such clearance or approval is not necessary. ID Date Data Source [id number] 12/27/2019 09:12:00 AM EST [facility] ([facility], ) Name Value Range Interpretation Code Description Data Madyson rce(s) Supporting Document(s) Microscopic observation [Identifier] in Unspecified specimen by Non- gynecological cytology method Laboratory test [facility] will discuss at follow-up ID Date Data Source [id number] 12/27/2019 09:04:00 AM EST [facility] ([facility], ) Name Value Range Interpretation Code Description Data Madyson rce(s) Supporting Document(s) Glucose [Mass/volume] in Capillary blood by Glucometer 176 mg/dL 83-110 Above high normal [facility] ([facility]) Doctor Notified ID Date Data Source [id number] 12/27/2019 08:52:00 AM EST [facility] ([facility]) Name Value Range Interpretation Code Description Data Madyson rce(s) Supporting Document(s) Microscopic observation [Identifier] in Unspecified specimen by Non- gynecological cytology method Laboratory test result [facility] ([facility]) SPECIMEN: Bronchial brushing (right lower lobe) [place] in vial and prepared slides received SPECIMEN ADEQUACY: Satisfactory for evaluation CATEGORIZATION: Positive for Malignancy DESCRIPTIONS: Small groups and single malignant cells noted exhibiting nuclei of varying size with multiple prominent nucleoli. The background consists of scattered lymphocytes and blood. COMMENTS: See also report [id number] /TR 12/28/2019914 Signed FIORELLA ERNANDEZ(ASCP) 12/28/2019 0752 (Prelim) Signed Isabella Mckeon MD 12/28/2019914 ID Date Data Source [id number] 12/27/2019 08:51:00 AM EST [facility] ([facility]) Name Value Range Interpretation Code Description Data Madyson rce(s) Supporting Document(s) Microscopic observation [Identifier] in Unspecified specimen by Non- gynecological cytology method Laboratory test result [facility] ([facility]) SPECIMEN: FNA Subcarinal lymp h node Cytolyt and prepared slides received SPECIMEN ADEQUACY: Satisfactory for evaluation CATEGORIZATION: Positive for Malignancy DESCRIPTIONS: Specimen consists of groups and single malignant cells exhibiting variation in nuclear size and prominent multiple nucleoli. COMMENTS: Findings are consistent with metastatic NSCLC, see also report [id number] /TR 12/28/2019913 Signed FIORELLA ERNANDEZ(ASCP) 12/28/2019 0702 (Prelim) Signed Isabella Mckeon MD 12/28/2019913 ID Date Data Source [id number] 12/27/2019 08:38:00 AM EST [facility] ([facility]) Name Value Range Interpretation Code Description Data Madyson rce(s) Supporting Document(s) Surgical pathology study Laboratory test result [facility] ([facility]) Addendum 1 Entered: 01/10/2020-0805 PD-L1 KEYTRUDA shows tumor proportion score of 80%/High expression. See complete report from [facility]. Negative EGFR Negative for KRAS Negative for BRAF Negative for ALK Negative for ROS1 See complete reports from [facility], scanned in EMR under pathology module. 01/10/2020804 Addendum Signed____ Isabella Mckeon MD 01/10/2020804 FINAL DIAGNOSIS Right lung, lower lobe, biopsy: Poorly differentiated/high grade adenocarcinoma. TTF-1 is positive in tumor cells and P40 stain is negative. See note. NOTE: The unstained slides were sent for PD-L1 testing to [facility] and the tissue block to [facility] for molecular test panel. Addendum with results will follow. 4/TR 12/28/20191251 CLINICAL DIAGNOSIS Abnormal x-ray 12/27/20191506 GROSS DIAGNOSIS Received in formalin labeled "right lower lobe" is a bag containing a 0.8 x 0.4 x 0.2 cm aggregate of pale whi te and red fragments. All in one. - 12/27/20191506 Signed Isabella Mckeon MD 12/28/20191251 ID Date Data Source [id number] 12/27/2019 07:15:00 AM EST [facility] Name Value Range Interpretation Code Description Data Madyson rce(s) Supporting Document(s) Glucose [Mass/volume] in Capillary blood by Glucometer 152 mg/dL 83-110 Above high normal [facility] ([facility]) ID Date Data Source [id number] 12/27/2019 07:13:00 AM EST [facility] ([facility]) Name Value Range Interpretation Code Description Data Madyson rce(s) Supporting Document(s) Gram Stain Laboratory test result Normal (applies to non-n umeric results) [facility] ([facility], ) MANY WBCS NO ORGANISMS SEEN Bal Culture Laboratory test result Normal (applies to non- numeric results) [facility] ([facility], ) FULL REPORT IN LAB NOTES ([facility] and [facility] ). NO GROWTH AEROBICALLY ID Date Data Source [id number] 01/09/2020 11:59:00 AM [facility] Anatomic Molecular Pathology ReportName: FELIX VALENZUELA: [id number] Number: [id number] Date: 12/27/2019 00:00Received Date: 12/29/2019 14:28Physician(s): BRIANA HUGHES MD Haghir, Shahandeh [facility] To:BRIANA HUGHES MDSpecimen(s) ReceivedA: Right lung, lower lobe, Formalin Block [id number] received from [facility] in [place], [place] ROS1 by FISHDiagnosisTEST:ROS1 gene rearrangements by [...] labeled with SpectrumOr[employer]. Tumor cells with no [id number] have 2 yellow signals (fused orange and [...] and its performance characteristics weredetermined by the [facility],and it has been authorized for clinical use by [facility]. The test has not been cleared or approved by the U.S. Food andDrug Administration. The analyte specific reagents used in this assay donot require FDA approval. Processed at [facility], [address] [place] [address] and reported at [facility] Laboratory, [address] [place] [address].REFERENCES: 1. ALEM Che, Ava AT, Elba GALVAN et al. Identifying and Targeting [id number] Fusions in NonSmall Cell Lung Cancer. Clin Cancer Res 2012; 18(17);72994455.2. Carlin, Pheonix AT. Novel Targets in Non-Small Cell Lung Cancer:ROS-1 and RET fusions. The Oncologist. 2013;18:865- 875.This report may include one or more immunohistochemical stain results thatuse analyte specific reagents. All positive and negative controls havebeen reviewed by the attending pathologist and are satisfactory. The testswere developed and their performance characteristics determined by [facility] Pathology department. They have not been cleared or approved by the USFood and Drug Administration. The FDA has determined that such clearanceor approval is not necessary. Name Value Range Interpretation Code Description Data Madyson rce(s) Supporting Document(s) ID Date Data Source [id number] 01/09/2020 11:58:00 AM [facility] Anatomic Molecular Pathology ReportName: CLAY VALENZUELAGUDELIA: [id number] Number: [id number] Date: 12/27/2019 00:00Received Date: 12/29/2019 14:26Physician(s): BRIANA HUGHES MD Haghir, Shahandeh MDCopy To:BRIANA HUGHES MDSpecimen(s) ReceivedA: Right lung, lower lobe, Formalin Block [id number] received from [facility] in [place], [place], ALK by FISHDiagnosisTEST:ALK gene rearrangements by [...] is performed on paraffin embedded NSCLC utilizing theKnewton Molecular ALK Break Apart FISH Probe Kit. [...] the special procedure laboratory of Department of Pathology,[facility]. Processed at [facility], [address] [place], [place] [address] and reported at [facility], [address] [place] [address].This report may include one or more immunohistochemical stain results thatuse analyte specific reagents. All positive and negative controls havebeen reviewed by the attending pathologist and are satisfactory. The testswere developed and their performance characteristics determined by [facility] Pathology department. They have not been cleared or approved by the USFood and Drug Administration. The FDA has determined that such clearanceor approval is not necessary. Name Value Range Interpretation Code Description Data Madyson rce(s) Supporting Document(s) ID Date Data Source [id number] 01/08/2020 09:28:00 AM [facility] Anatomic Molecular Pathology ReportName: FELIX VALENZUELA: [id number] Number: [id number] Date: 12/27/2019 00:00Received Date: 12/29/2019 14:30Physician(s): BRIANA HUGHES MD Haghir, Shahandeh MDCopy To:BRIANA HUGHES MDSpecimen(s) ReceivedA: Right lung, lower lobe, Formalin Block [id number] received from [facility] in [place], [place] KRAS Mutation AnalysisDiagnosisTEST:KRAS gene mutations by [...] M.D. Attending Pathologist 01/08/2020 09:28:14Reported at [address] [place] [address]. Gross DescriptionMETHODOLOGY: The therascreen KRAS RGQ PCR Kit is a real-time qualitative PCR assayused on the Syncronex instrument for the detection of seven somaticmutations [...] Herrera, Prince JM, Lynn MR, et al. [place] Societyof Clinical Oncology provisional clinical opinion: testing for KRAS genemutations in patients with metastatic colorectal carcinoma to predictresponse to anti-epidermal growth factor receptor monoclonal antibodytherapy. J Clin Oncol 27:8742-1364, 2009. 2. Karla Yanes , Sophie Ferguson , VIKTORIYA Scott, et al.Biomarkers predicting clinical outcome of epidermal growth factor receptortargeted therapy in metastatic colorectal cancer. J Natl Cancer Ixte583:99506599, 2009.This report may include one or more immunohistochemical stain results thatuse analyte specific reagents. All positive and negative controls havebeen reviewed by the attending pathologist and are satisfactory. The testswere developed and their performance characteristics determined by [facility] Pathology department. They have not been cleared or approved by the USFood and Drug Administration. The FDA has determined that such clearanceor approval is not necessary. Name Value Range Interpretation Code Description Data Madyson rce(s) Supporting Document(s) ID Date Data Source [id number] 01/08/2020 09:26:00 AM [facility] Anatomic Molecular Pathology ReportName: CLAY VALENZUELAJamesN: [id number] Number: [id number] Date: 12/27/2019 00:00Received Date: 12/29/2019 14:29Physician(s): BRIANA HUGHES MD Haghir, Shahandeh MDCopy To:BRIANA HUGHES MDSpecimen(s) ReceivedA: Right lung, lower lobe, Formalin Block [id number] received from [facility] in [place], [place] EGFRDiagnosisTEST: EGFR gene mutations (exon 19 [...] indicated. Presence of exon 19 deletions, exon 11D298E or L861Q, exon 18 G719A or exon [...] Balderas M.D. Attending Pathologist 01/08/2020 09:26:13Reported at [address] [place] [address]. Gross DescriptionMETHODOLOGY:The therascreen EGFR RGQ PCR Kit ([employer], [place], [place]) is a real-timequalitative PCR assay used on the CopyRightNow Q MDx instrument for thedetection of seven types of mutations at EGFR oncogene. The kit requiresDNA extracted from formalin-fixed paraffin-embedded (FFPE) tissue ofnon-small cell lung cancer. The tumor area is identified by the attendingpathologist and manually microdissected. The assay uses Scorpionse andARMSe (Allele Refractory Mutation System) technologies, and [facility] Medical CenterDA-approved for clinical patient care. Allele-specific [...] factor receptormutations in lung cancer. Nature Review/Cancer. 2007;3289-0286.This report may include one or more immunohistochemical stain results thatuse analyte specific reagents. All positive and negative controls havebeen reviewed by the attending pathologist and are satisfactory. The testswere developed and their performance characteristics determined by [facility] Pathology department. They have not been cleared or approved by the USFood and Drug Administration. The FDA has determined that such clearanceor approval is not necessary. Name Value Range Interpretation Code Description Data Madyson rce(s) Supporting Document(s) ID Date Data Source [id number] 01/08/2020 09:23:00 AM [facility] Anatomic Molecular Pathology ReportName: CLAY VALENZUELAJamesN: [id number] Number: [id number] Date: 12/27/2019 00:00Received Date: 12/29/2019 14:32Physician(s): BRIANA HUGHES MD Haghir, Shahandeh MDCopy To:BRIANA HUGHES MDSpecimen(s) ReceivedA: Right lung, lower lobe, Formalin Block [id number] received from [facility] in [place] BRAF Mutation AnalysisDiagnosisTESTS:BRAF V600E mutation (1799 [...] Balderas M.D. Attending Pathologist 01/08/2020 09:23:29Reported at [address] [place] [address]. Gross DescriptionMETHODOLOGY:BRAF V600E(1799 T>A) mutation at exon [...] amounts of PCR products, and analyzed by MustHaveMenusGene Q real timeinstrument. The analytical sensitivity (or minimum percentage of mutantDNA needed) is approximately 10% given sufficient DNA input. Test development and its performance characteristics were determined bythe [facility], and has beenauthorized for clinical use by [facility]. Thetest has not been cleared or approved by the U.S. Food and DrugAdministration. The analyte specific reagents used in this assay do notrequire FDA approval. REFERENCES: 1. iGsel SKenneth Alenda C, et al. Detection of BRAF B591Fpbgoakps in colorectal cancer-comparison of automatic sequencing and realtime chemistry methodology. J Mol Diagn. 2006; 8:365603.2. Bora L, Tip TRACY, Ella N, et al. BRAF mutation analysis in fineneedle aspiration (FNA) cytology of the thyroid. Diagn Mol Pathol.2006;15:820936.3. Machelle PK, Mesha ME, Caron M, et al. Clinical characteristics ofpatients with lung adenocarcinomas harboring BRAF mutations. J Clin Oncol.2011;29:5730-3955.This report may include one or more immunohistochemical stain results thatuse analyte specific reagents. All positive and negative controls havebeen reviewed by the attending pathologist and are satisfactory. The testswere developed and their performance characteristics determined by [facility] Pathology department. They have not been cleared or approved by the USFood and Drug Administration. The FDA has determined that such clearanceor approval is not necessary. Name Value Range Interpretation Code Description Data Madyson rce(s) Supporting Document(s) ID Date Data Source [id number] 12/22/2019 01:00:00 PM EDT [facility] Name Value Range Interpretation Code Description Data Madyson rce(s) Supporting Document(s) SARS coronavirus 2 RNA [facility] This lab was ordered by [facility] and reported by [facility]. ID Date Data Source [id number] 12/07/2019 10:38:00 AM EDT [facility] ([facility], ) Name Value Range Interpretation Code Description Data Madyson rce(s) Supporting Document(s) Glucose, Fasting 52 mg/dL 70-100 Below low normal [facility] ([facility], ) Creatinine For GFR 0.47 mg/dL 0.55-1.30 Below low normal [facility] ([facility]) Blood Urea Nitrogen 13 mg/dL 7-18 Normal (applies to non-nume blaire results) [facility] ([facility], ) Glomerular Filtration Rate Laboratory test result Normal (applies to non- numeric results) [facility], ) <content>Units are mL/min/1.73 m2</content>
<content></content>
<content>Chronic Kidney Disease Staging per NKF:</content>
<content></content>
<content>Stage I & II GFR >=60 Normal to Mildly Decreased</content>
<content>Stage III GFR 30- 59 Moderately Decreased</content>
<content>Stage IV GFR 15-29 Severely Decreased</content>
<content>Stage V GFR <15 Very Little GFR Left</content>
<content>ESRD GFR <15 on POTLINE MONITOR</content>
<content></content> Sodium Level 139 meq/L 136-145 Normal (applies to non-numeric res ults) [facility] ([facility]) Chloride Level 103 meq/L 98-107 Normal (applies to non-numeric r esults) [facility] ([facility]) Carbon Dioxide Level 32 meq/L 21-32 Normal (applies to non-num tyrese results) [facility]) Potassium Serum 4.2 meq/L 3.5-5.1 Normal (applies to non-numeric results) [facility]) Anion Gap 4 meq/L 8-16 Below low normal [facility] ( [facility]) Calcium Level 9.6 mg/dL 8.8-10.2 Normal (applies to non-numeric re sults) [facility]) ID Date Data Source [id number] 12/07/2019 10:38:00 AM EDT [facility]) Name Value Range Interpretation Code Description Data Madyson rce(s) Supporting Document(s) Prothrombin Time 13.1 s 12.5-14.3 Normal (applies to non-numeric results) [facility]) Partial Thromboplastin Time 34.0 s 24.2-38.5 Norm al (applies to non-numeric results) [facility]) Inr 0.98 Normal (applies to non-numeric resul ts) [facility]) THERAPUTIC HUMAN INR VALUES INDICATIONS NORMAL RANGES PROPHYLAXIS/TREATMENT OF: VENOUS THROMBOSIS 2.0-3.0 PULMONARY EMBOLISM 2.0-3.0 PREVENTION OF SYSTEMIC EMBOLISM FROM: TISSUE HEART VALVES 2.0-3.0 ACUTE MYOCARDIAL INFARCTION 2.0-3.0 VALVULAR HEART DISEASE 2.0-3.0 ATRIAL FIBRILLATION 2.0-3.0 MECHANICAL VALVES(HIGH RISK) 2.5-3.5 RECURRENT MYOCARDIAL INFARCTION 2.5-3.5 ID Date Data Source [id number] 12/07/2019 10:38:00 AM EDT [facility]) Name Value Range Interpretation Code Description Data Madyson rce(s) Supporting Document(s) aPTT in Platelet poor plasma by Coagulation assay Laboratory test res ult [facility] ([facility], ) Platelets [#/volume] in Blood by Automated count 281 10 150-450 Normal (applies to non-numeric results) [facility] ([facility]) ID Date Data Source [id number] 12/07/2019 09:16:00 AM EDT [facility] ([facility]) Name Value Range Interpretation Code Description Data Madyson rce(s) Supporting Document(s) PDFReport Laboratory test result [facility] ([facility]) FVC-Pre 1.53 L [facility] ([facility]) FVC-Pred 2.81 L [facility] ([facility]) FVC-%Pred-Pre 54 L [facility] ([facility]) FVC-LLN 2.15 L [facility] ([facility]) Fev1-Pre 1.21 L [facility] ([facility]) Fev1-Pred 2.13 L [facility] ([facility]) Fev1-%Pred-Pre 56 L [facility] ([facility]) Fev1-LLN 1.57 L [facility] ([facility]) Fev6-Pred 2.69 L [facility] ([facility]) Fev6-Pre 1.53 L [facility] ([facility]) Fev6-%Pred-Pre 56 L [facility] ([facility]) Fev6-LLN 2.04 L [facility] ([facility]) Epf2ypv-Shxy 76 % [facility] ([facility]) Czg3hsi-%Pred-Pre 103 % [facility] ([facility]) Kga6aid-Yxz 79 % [facility] ([facility]) Kiz4qec-Sre 100 % [facility] ([facility]) Sul2wsk-Dowz 95 % [facility] ([facility]) Vwu3xeq-KIV 66 % [facility] ([facility]) Drs9dzg-%Pred-Pre 104 % [facility] ([facility], ) FEFMax-Pred 5.42 L/E/sec [facility] ([facility], ) FEFMax-Pre 3.58 L/E/sec [facility] ([facility], ) FEFMax-%Pred-Pre 66 L/E/sec [facility] ([facility], ) FEFMax-LLN 3.78 L/E/sec [facility] ([facility], ) Pko5615-Hdy 1.06 L/E/sec [facility] ([facility], ) Mvt6136-%Pred-Pre 58 L/E/sec [facility] ([facility]) Nbv2069-Timx 1.81 L/E/sec [facility] ([facility], ) ExpTime-Pre 5.52 sec [facility] ([facility], ) Tob5561-DLB 0.63 L/E/sec [facility] ([facility], ) Ici7pxh8-Icuu 79 % [facility] ([facility], ) Vzr9rgs5-BNO 70 % [facility] ([facility], ) Ovl9lzz3-Xox 79 % [facility] ([facility]) Ckk2ibg4-%Pred-Pre 99 % [facility] ([facility]) ID Date Data Source MAGNESIUM LEVEL 11/27/2019 04:24:18 AM EDT [facility] ([facility]) Name Value Range Interpretation Code Description Data Madyson rce(s) Supporting Document(s) 2.0 MAGNESIUM LEVEL eCW1 ([facility]) ID Date Data Source NT-PRO BNP 11/27/2019 04:24:14 AM EDT eCW ([facility]) Name Value Range Interpretation Code Description Data Madyson rce(s) Supporting Document(s) 138 NT-PRO BNP eCW1 ([facility]) ID Date Data Source CBC with Differential 11/27/2019 04:24:09 AM EDT W ([facility]) Name Value Range Interpretation Code Description Data Madyson rce(s) Supporting Document(s) 11.0 WHITE BLOOD COUNT eCW1 ([facility]) 3.76 RED BLOOD COUNT eCW1 ([facility]) 34.7 HEMATOCRIT eCW1 ([facility]) 10.8 HEMOGLOBIN eCW1 ([facility]) 28.7 MEAN CORPUSCULAR HEMOGLOBIN eC W1 ([facility]) 31.1 MEAN CORPUSCULAR HGB CONC eCW1 ([facility]) 92.3 MEAN CORPUSCULAR VOLUME eCW1 ( [facility]) 276 PLATELET COUNT, AUTOMATED eCW1 ([facility]) 14.3 RED CELL DISTRIBUTION WIDTH eC W1 ([facility]) 61.9 NEUTROPHILS % eCW1 ([facility]) 7.9 MONO % eCW1 ([facility]) 21.6 LYMPH % eCW1 ([facility]) 7.8 EOS % eCW1 ([facility]) 6.8 NEUTROPHILS # eCW1 ([facility]) 0.4 BASO % eCW1 ([facility]) 2.4 LYMPH # eCW1 ([facility]) 0.9 MONO # eCW1 ([facility]) 0.9 EOS # eCW1 ([facility]) 0.0 BASO # eCW1 ([facility]) Procedure Social History Code Duration Value Status Description Data Source(s ) Smoking 01/11/2020 12:00:00 AM EST Patient is a former smoker completed Patient is a former smoker [facility] ([facility], ) Smoking 12/06/2019 12:00:00 AM EDT Former Smoker completed Former Smoker eCW1 ([facility]) Smoking 12/06/2019 12:00:00 AM EDT Former Smoker completed Former Smoker eCW1 ([facility]) Smoking 12/06/2019 12:00:00 AM EDT Former Smoker completed Former Smoker eCW1 ([facility]) Smoking 12/06/2019 12:00:00 AM EDT Former Smoker completed Former Smoker eCW1 ([facility]) Smoking 12/06/2019 12:00:00 AM EDT Former Smoker completed Former Smoker eCW1 ([facility]) Smoking 12/06/2019 12:00:00 AM EDT Former Smoker completed Former Smoker eCW1 ([facility]) Smoking 12/06/2019 12:00:00 AM EDT Former Smoker completed Former Smoker eCW1 ([facility]) Smoking 12/06/2019 12:00:00 AM EDT Former Smoker completed Former Smoker eCW1 ([facility]) Smoking 12/06/2019 12:00:00 AM EDT Former Smoker completed Former Smoker eCW1 ([facility]) Smoking 12/06/2019 12:00:00 AM EDT Former Smoker completed Former Smoker eCW1 ([facility]) Smoking 12/06/2019 12:00:00 AM EDT Former Smoker completed Former Smoker eCW1 ([facility]) Smoking 12/06/2019 12:00:00 AM EDT Former Smoker completed Former Smoker eCW1 ([facility]) Smoking 12/06/2019 12:00:00 AM EDT Former Smoker completed Former Smoker eCW1 ([facility]) Smoking 12/06/2019 12:00:00 AM EDT Former Smoker completed Former Smoker eCW1 ([facility]) Smoking 12/06/2019 12:00:00 AM EDT Former Smoker completed Former Smoker eCW1 ([facility]) Smoking 12/06/2019 12:00:00 AM EDT Former Smoker completed Former Smoker eCW1 ([facility]) Smoking 11/27/2019 12:00:00 AM EDT Former Smoker completed Former Smoker eCW1 ([facility]) Smoking 08/04/2019 12:00:00 AM EDT Former Smoker completed Former Smoker eCW1 ([facility]) Smoking 08/04/2019 12:00:00 AM EDT Former Smoker completed Former Smoker eCW1 ([facility]) Smoking 08/04/2019 12:00:00 AM EDT Former Smoker completed Former Smoker eCW1 ([facility]) Smoking 07/28/2019 12:34:53 PM EDT Ex-smoker (finding) complet ed Ex-smoker (finding) WES (Bebeto Mcfadden MD [facility]) Smoking 05/22/2019 05:14:12 PM EDT Ex-smoker (finding) complet ed Ex-smoker (finding) WES (Bebeto Mcfadden MD [facility]) Smoking 05/22/2019 05:06:57 PM EDT Ex-smoker (finding) complet ed Ex-smoker (finding) WES (Bebeto Mcfadden MD [facility]) Smoking 05/22/2019 04:59:57 PM EDT Ex-smoker (finding) complet ed Ex-smoker (finding) WES (Bebeto Mcfadden MD [facility]) Smoking 05/22/2019 04:50:10 PM EDT Ex-smoker (finding) complet ed Ex-smoker (finding) WES (Bebeto Mcfadden MD [facility]) Smoking 05/22/2019 04:17:00 PM EDT Ex-smoker (finding) complet ed Ex-smoker (finding) WES (Bebeto Mcfadden MD [facility]) Smoking 05/22/2019 04:03:26 PM EDT Ex-smoker (finding) complet ed Ex-smoker (finding) W[facility] (Bebeto Mcfadden MD [facility]) Smoking 05/22/2019 03:50:28 PM EDT Ex-smoker (finding) complet ed Ex-smoker (finding) WES (Bebeto Mcfadden MD [facility]) Vital Signs ID Date Data Source UNK Name Value Range Interpretation Code Description Data Source(s) Body surface area Derived from formula 1.67 m2 1.67 m2 [facility] ([facility]) Body weight 64.865 kg 64.865 kg [facility] ([facility]) [place] body weight 110 [lb_av] 110 [lb_av] [facility] T ([facility]) Body mass index (BMI) [Ratio] 25.7 kg/m2 25.7 k g/m2 [facility] ([facility]) Body weight 143.00 [lb_av] 143.00 [lb_av] [facility] T ([facility]) Body height 62.5 [in_i] 62.5 [in_i] [facility] ([facility]) 5'2.50" Oxygen saturation in Arterial blood by Pulse oximetry 97 % 97 % [facility] ([facility]) Heart rate 97 /min 97 /min [facility] ([facility]) Diastolic blood pressure 70 mm[Hg] 70 mm[Hg] [facility] ([facility]) Systolic blood pressure 122 mm[Hg] 122 mm[Hg] [facility] ([facility]) Body surface area Derived from formula 1.67 m2 1.67 m2 [facility] ([facility]) Body weight 64.638 kg 64.638 kg [facility] ([facility]) [place] body weight 110 [lb_av] 110 [lb_av] [facility] ([facility]) Body mass index (BMI) [Ratio] 25.6 kg/m2 25.6 k g/m2 [facility] ([facility]) Body weight 142.50 [lb_av] 142.50 [lb_av] [facility] Body height 62.5 [in_i] 62.5 [in_i] [facility] ([facility]) 5'2.50" Body temperature 96.8 [degF] 96.8 [degF] [facility] ([facility]) Oxygen saturation in Arterial blood by Pulse oximetry 96 % 96 % [facility] ([facility]) Heart rate 100 /min 100 /min [facility] ([facility]) Diastolic blood pressure 64 mm[Hg] 64 mm[Hg] [facility] ([facility]) Systolic blood pressure 122 mm[Hg] 122 mm[Hg] [facility] ([facility]) Body weight 65.999 kg 65.999 kg [facility] ([facility]) [place] body weight 110 [lb_av] 110 [lb_av] [facility] T ([facility]) Body mass index (BMI) [Ratio] 26.2 kg/m2 26.2 k g/m2 [facility] ([facility]) Body weight 145.50 [lb_av] 145.50 [lb_av] [facility] Body height 62.5 [in_i] 62.5 [in_i] [facility] 5'2.50" Oxygen saturation in Arterial blood by Pulse oximetry 95 % 95 % [facility] ([facility], ) Heart rate 87 /min 87 /min [facility] Diastolic blood pressure 60 mm[Hg] 60 mm[Hg] [facility] Systolic blood pressure 106 mm[Hg] 106 mm[Hg] M [facility] ([facility], ) Diastolic blood pressure 74 mm[Hg] 74 mm[Hg] eCW1 ([facility]) Systolic blood pressure 126 mm[Hg] 126 mm[Hg] e CW1 ([facility]) Body temperature 97.1 [degF] 97.1 [degF] eCW1 ( [facility]) Respiratory rate 18 /min 18 /min eCW1 ([facility]) Heart rate 90 /min 90 /min eCW1 ([facility]) Body mass index (BMI) [Ratio] 26.42 kg/m2 26.42 kg/m2 W1 ([facility]) Body height 62.5 [in_i] 62.5 [in_i] eCW1 ([facility]) Body weight 146.8 [lb_av] 146.8 [lb_av] eCW1 ([facility]) Diastolic blood pressure 66 mm[Hg] 66 mm[Hg] eCW1 ([facility]) Systolic blood pressure 110 mm[Hg] 110 mm[Hg] e CW1 ([facility]) Body temperature 97.1 [degF] 97.1 [degF] eCW1 ( [facility]) Respiratory rate 18 /min 18 /min eCW1 ([facility]) Heart rate 88 /min 88 /min eCW1 ([facility]) Body mass index (BMI) [Ratio] 26.85 kg/m2 26.85 kg/m2 W1 ([facility]) Body height 62.5 [in_i] 62.5 [in_i] eCW1 ([facility]) Body weight 149.2 [lb_av] 149.2 [lb_av] eCW1 ([facility]) Diastolic blood pressure 66 mm[Hg] 66 mm[Hg] eCW1 ([facility]) Systolic blood pressure 118 mm[Hg] 118 mm[Hg] e CW1 ([facility]) Body temperature 97.5 [degF] 97.5 [degF] eCW1 ( [facility]) Respiratory rate 18 /min 18 /min eCW1 ([facility]) Heart rate 100 /min 100 /min eCW1 ([facility]) Body mass index (BMI) [Ratio] 28.00 kg/m2 28.00 kg/m2 eCW1 ([facility]) Body height 62.5 [in_i] 62.5 [in_i] eCW1 ([facility]) Body weight 155.6 [lb_av] 155.6 [lb_av] eCW1 ([facility]) Diastolic blood pressure 60 mm[Hg] 60 mm[Hg] eCW1 ([facility]) Systolic blood pressure 112 mm[Hg] 112 mm[Hg] e CW1 ([facility]) Body temperature 98.3 [degF] 98.3 [degF] eCW1 ( [facility]) Respiratory rate 18 /min 18 /min eCW1 ([facility]) Heart rate 96 /min 96 /min eCW1 ([facility]) Body mass index (BMI) [Ratio] 28.11 kg/m2 28.11 kg/m2 eCW1 ([facility]) Body height 62.5 [in_us] 62.5 [in_us] eCW1 ([facility]) Body weight Measured 156.2 [lb_av] 156.2 [lb_av ] eCW1 ([facility]) Respiratory rate 16 /min 16 /min MEDENT [...] l Tablet 02/02/2020 12:00:00 AM EST eCW1 ([facility]) Acetaminophen 325 MG / Hydrocodone Bitartrate 5 MG Ora l Tablet 02/02/2020 12:00:00 AM EST eCW1 ([facility]) Acetaminophen 325 MG / Hydrocodone Bitartrate 5 MG Ora l Tablet 02/02/2020 12:00:00 AM EST eCW1 ([facility]) Acetaminophen 325 MG / Hydrocodone Bitartrate 5 MG Ora l Tablet 02/02/2020 12:00:00 AM EST eCW1 ([facility]) Acetaminophen 325 MG / Hydrocodone Bitartrate 5 MG Ora l Tablet 02/02/2020 12:00:00 AM EST eCW1 ([facility]) Acetaminophen 325 MG / Hydrocodone Bitartrate 5 MG Ora l Tablet 02/02/2020 12:00:00 AM EST eCW1 ([facility]) Acetaminophen 325 MG / Hydrocodone Bitartrate 5 MG Ora l Tablet 02/02/2020 12:00:00 AM EST eCW1 ([facility]) Acetaminophen 325 MG / Hydrocodone Bitartrate 5 MG Ora l Tablet 02/02/2020 12:00:00 AM EST eCW1 ([facility]) Acetaminophen 325 MG / Hydrocodone Bitartrate 5 MG Ora l Tablet 01/02/2020 12:00:00 AM EST eCW1 ([facility]) Acetaminophen 325 MG / Hydrocodone Bitartrate 5 MG Ora l Tablet 01/02/2020 12:00:00 AM EST eCW1 ([facility]) Acetaminophen 325 MG / Hydrocodone Bitartrate 5 MG Ora l Tablet 12/15/2019 12:00:00 AM EDT eCW1 ([facility]) Acetaminophen 325 MG / Hydrocodone Bitartrate 5 MG Ora l Tablet 12/15/2019 12:00:00 AM EDT eCW1 ([facility]) Acetaminophen 325 MG / Hydrocodone Bitartrate 5 MG Ora l Tablet 12/15/2019 12:00:00 AM EDT eCW1 ([facility]) Acetaminophen 325 MG / Hydrocodone Bitartrate 5 MG Ora l Tablet 12/15/2019 12:00:00 AM EDT eCW1 ([facility]) Albuterol Sulfate 108 (90 Base) MCG/ACT 11/27/2019 12:00:00 AM EDT eCW1 ([facility]) Prednisone 20 MG Oral Tablet 11/27/2019 12:00:00 AM EDT eCW1 ([facility]) besifloxacin 6 MG/ML Ophthalmic Suspension [Besivance] 06/03/2018 12:00:00 AM EDT WES (Bebeto Mcfadden MD [facility]) BromSite 0.075% Ophthalmic Solution 06/03/2018 12:00:00 AM EDT WES (Bebeto Mcfadden MD [facility]) prednisolone acetate 10 MG/ML Ophthalmic Suspension [P red Forte] 06/03/2018 12:00:00 AM EDT WES (Bebeto Mcfadden MD [facility])
[2020-03-11] MEDS: METOPROLOL 5 MG/5 ML VIAL IV SCH ×6 (15:02→18:11)
[2020-03-11] MEDS ORDERED: METOPROLOL SUCC *XL* 25MG TAB (TopROL *XL*) PO ONE (16:15)
[2020-03-11] MEDS ORDERED: MAGIC MOUTHWASH SUSPENSION BTL PO PRN (16:15)
--- NOTE | 2020-03-11 16:26 | ECGEPIP ---
[facility] Test Date: 2020-03-11 Pat Name: OPAL VALENZUELA Department: Room: 01 Gender: Female Director Patient Accounting: : 1950 Requested By: COSME MORRIS Order Number: [id number] Reading MD: Charlotte Zheng Measurements Intervals [place] Rate: 168 P: VA: 0 QRS: -19 QRSD: 101 T: 156 QT: 259 QTc: 434 Interpretive Statements ATRIAL FIBRILLATION WITH RAPID VENTRICULAR RESPONSE NEW ST DEVIATION AND MODERATE T-WAVE ABNORMALITY, CONSIDER LATERAL ISCHEMIA MORE M MARKED LVH C/W 03/11/20 EARLIER Electronically Signed on 03-11-2020 16:26:21 EST by Charlotte Zheng
[2020-03-11] MEDS ORDERED: METOPROLOL TART 25 MG TABLET PO ONE (17:00)
[2020-03-11 18:00] VITALS: BP 117/57
[2020-03-11] MEDS: NS 1,000 ML IV SCH (18:28)
[2020-03-11] MEDS ORDERED: GLUCOSE 4GM CHEW TABLET PO PRN (18:30)
[2020-03-11] MEDS ORDERED: GLUCAGON INJ 1MG VIAL SC PRN (18:30)
[2020-03-11] MEDS ORDERED: DEXTROSE 50% 50 ML SYRINGE IV PRN (18:30)
[2020-03-11] MEDS: MORPHINE 10MG/0.5ML ORAL CONCENTRATE SOLUTION U/D SL PRN (18:37)
--- NOTE | 2020-03-11 18:57 | HPEPDOC ---
General Date of Admission 03/11/20 Date of Service: Mar 11, 2020 Chief Complaint The patient is a 69-year-old female admitted with a reason for visit of Breathing Difficulty. 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 Patient was recently admitted last week for similar complaints and felt that her pleural effusion was loculated and not any worse than before and it was not empyema so did not need any drainage. Also she has bronchial obstruction with atelectasis rather than pneumonia but she still was given empi blaire antibiotics in view of elevated WBCs. Active treatment with keytruda and palliative radiation for obstructive mass. Presents for worsening shortness of breath with chest pain, dysphagia and odynophagia and minimal oral intake for several days associated with diarrhea till yesterday which is better today. She is unable to swallow pills. In the ED she went into Afib with RVR which resolved after 2 doses of IV metoprolol. She also complained of severe back and chest wall pain on the right back, dull aching type, 8/10 in intensity radiating to the side. She was admitted for failure to thrive, dehydration, unable to tolerate po, A fib with rvr and SOB . Home Medications Scheduled Aspirin (Aspirin EC) 81 Mg Tablet.dr, 81 MG PO DAILY, (Reported) Atorvastatin Calcium (Atorvastatin Calcium) 40 Mg Tablet, 40 MG PO DAILY, (Reported) Budesonide/Formoterol (Symbicort 160-4.5 Mcg Inhaler) 6 Gm Hfa.aer.ad, 2 PUFF INH BID, (Reported) Calcium Carbonate/Vitamin D3 (Calcium 600+D Softgel) 1 Each Capsule, 1 CAP PO BID, (Reported) Dulaglutide (Trulicity) 0.75 Mg/0.5 Ml Pen.injctr, 0.75 MG SC QWEEK, (Reported) SUNDAYS Fluticasone/Vilanterol (Breo Ellipta 100-25 Mcg INH) 1 Each Blst.w.dev, 1 PUFF INH DAILY, (Reported) Furosemide (Furosemide) 20 Mg Tablet, 20 MG PO DAILY, (Reported) Gabapentin (Gabapentin) 100 Mg Capsule, 200 MG PO BID, (Reported) Glipizide (Glipizide ER) 5 Mg Tab.er.24, 5 MG PO DAILY, (Reported) Lisinopril (Lisinopril) 5 Mg Tablet, 5 MG PO DAILY, (Reported) Magnesium Oxide (Magnesium) 400 Mg Capsule, 1 CAP PO DAILY for constipation Metformin HCl (Metformin HCl) 1,000 Mg Tab, 1,000 MG PO BID, (Reported) Metoprolol Succinate (Metoprolol Succinate) 25 Mg Tab.er.24h, 25 MG PO QHS, (Reported) Potassium Chloride (K-Tab ER) 10 Meq Tablet.er, 10 MEQ PO DAILY Venlafaxine HCl (Venlafaxine HCl ER) 150 Mg Cap, 150 MG PO DAILY, (Reported) Scheduled PRN Fluticasone Propionate (Fluticasone Propionate) 50 Mcg/Act Spr, 1 SPRAY NARES QHS PRN for CONGESTION, (Reported) Hydrocodone/Acetaminophen (Hydrocodone-Acetamin 5-325 mg) 1 Each Tablet, 1 TAB PO Q4H PRN for PAIN Ipratropium/Albuterol Sulfate (Combivent Respimat 20-100 Mcg) 4 Gm Mist.inhal, 2 PUFF INH QID PRN for SHORTNESS OF BREATH, (Reported) Magic Mouthwash (First-Mouthwash Blm) 1 Ea Susp, 10 ML PO QID PRN for Dysphagia (Diphenhydramine/maalox/lidocaine 1:1:1) Take with straw by mouth and swallow Allergies Coded Allergies: Penicillins (Verified Allergy, Intermediate, HIVES, 12/26/19) nickel (Verified Allergy, Intermediate, rash, swelling, 12/26/19) aspirin (Verified Adverse Reaction, Intermediate, HIVES WITH NORMAL DOSE FOR SEVERAL DAYS, 03/11/20) TAKES 81MG AT HOME DAILY Past Medical History Medical History 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 Consolidation/ atelectasis of right lower lobe with obstruction of the bronchus intermedius. A paroxysmal A. fib H/O Post- cardiomyopathy HTN DLP NIDDM2 COPD / Childhood asthma TRINY not on CPAP Neuropathy / Essential tremor Mood disorder Mild aortic stenosis and aortic insufficiency. Surgical History Bilateral cataract replacements. Right knee arthroplasty. Fractured wrist. Prior Family History Father of lung cancer as did her brother along with COPD; both were smokers. Social History * Smoker: former Smoker Alcohol: occationally Drugs: denies A-FIB/CHADSVASC A-FIB History Current/History of A-Fib/PAF?: Yes Current PO Anticoag Therapy: No Review of Systems Constitutional: Reports: Weakness, Fatigue, Weight Loss; Denies: Chills, Fever Eyes: Denies: Pain, Vision change ENT: Reports: Dysphagia, Other Symptoms (odynophagia); Denies: Head Aches, Ear Pain Skin: Denies: Rash, Lesions, Breakdown Pulmonary: Reports: Dyspnea, Cough Cardiovascular: Reports: Orthopnea, Lt Headedness Gastrointestinal: Reports: Diarrhea; Denies: Nausea, Vomiting, Abdominal Pain Genitourinary: Denies: Dysuria, Frequency, Incontinence, Retention Hematologic: Denies: Bruising, Bleeding Excessively Musculoskeletal: Reports: Neck Pain, Back Pain Psych: Reports: Anxiety Physical Examination General Exam: Positive: Alert, Cooperative, Mild Distress Eye Exam: Positive: PERRLA, Conjunctiva & lids normal, EOMI; Negative: Sclera icteric ENT Exam: Positive: Atraumatic, Mucous membr. moist/pink, Pharynx Normal, Other ENT (bitemporal wasting) Neck Exam: Positive: Supple; Negative: JVD, thyromegaly Chest Exam: Positive: Diminished (in the right base almost up to mid back with crackles. Dull to percussion.), Other (bilateral diffuse crackles. ); Negative: Rhonchi, Wheezing Heart Exam: Positive: Rate Normal, Tachycardic, Irregular Rhythm, Normal S1, Normal S2; Negative: Murmurs, Rubs Telemetry: Positive: Atrial fibrillation Abdomen Exam: Positive: Normal bowel sounds, Soft; Negative: Tenderness, Hepatospenomegaly Extremity Exam: Negative: Clubbing, Cyanosis, Edema Skin Exam: Positive: Nl turgor and temperature; Negative: Breakdown, Lesion Vital Signs Vital Signs Date Time Temp Pulse Resp B/P (MAP) Pulse Ox O2 Delivery O2 Flow Rate FiO2 03/11/20 11:18 Room Air 03/11/20 11:11 98.7 124 36 129/65 93 Laboratory Data Labs 24H Laboratory Tests 2 03/11/20 11:32: Immature Granulocyte % (Auto) 1.1, Neutrophils (%) (Auto) 77.9H, Lymphocytes (%) (Auto) 4.0L, Monocytes (%) (Auto) 6.8H, Eosinophils (%) (Auto) 9.9H, Basophils (%) (Auto) 0.3, Neutrophils # (Auto) 14.6H, Lymphocytes # (Auto) 0.8L, Monocytes # (Auto) 1.3H, Eosinophils # (Auto) 1.9H, Basophils # (Auto) 0.1, Nucleated Red Blood Cells % (auto) 0.0, Anion Gap 8, Glomerular Filtration Rate > 60.0, Lactic Acid Level 2.0, Calcium Level 9.8, Magnesium Level 1.5L 03/11/20 12:15: POC pH (Misc Panel) 7.483H, POC Base Excess (Misc Panel) 4.0H, POC Saturated Percent O2 (Misc) 92L, POC pO2 (Misc Panel) 59.0L, POC pCO2 (Misc Panel) 36.4, POC HCO3 (Misc Panel) 27.2H, POC Total CO2 (Misc Panel) 28.0H 03/11/20 13:01: CBC/BMP Laboratory Tests 03/11/20 11:32 Microbiology Microbiology 03/11/20 Blood Culture, Received Pending Assessment/Plan 69 yo F with a hx of 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 Patient was recently admitted last week for similar complaints and felt that her pleural effusion was loculated and not any worse than before and it was not empyema so did not need any drainage. Also she has bronchial obstruction with atelectasis rather than pneumonia but she still was given empiric antibiotics in view of elevated WBCs. Active treatment with keytruda and palliative radiation for obstructive mass. Presents for worsening shortness of breath with chest pain, dysphagia and odynophagia and minimal oral intake for several days associated with diarrhea till yesterday which is better today. She is unable to swallow pills. In the ED she went into Afib with RVR which resolved after 2 doses of IV metoprolol. She also complained of severe back and chest wall pain on the right back, dull aching type, 8/10 in intensity radiating to the side. She was admitted for failure to thrive, dehydration, unable to tolerate po, A fib with rvr and SOB . Shortness of breath Due to Adenocarcinoma of R lung with obstruction and loculated effusion CXR looks about the same as last week. will give roxanol sub lingually to control pain Leucocytosis Procalcitonin is normal I do not think there is an infection this is probably due to cancer itself, pain, dehydration Will not give any antibiotics. COPD continue Symbicort and spiriva and levalbuterol Afib with RVR resolved after 2 doses of iv metoprolol continue metoprolol succinate per patient, AC was stopped by cardiology (Dr. Dela Cruz). continue ASA Dysphagia due to Mucositis from RT. magic mouth wash liquid diet. HTN metoprolol continued DLP huge loss of weight will stop atorvasttin. DM2 not much oral intake. Will stop all oral medications. for now will monitor FS BID and add insulin if rises Severe protein calorie malnutrition > 10 kgs weight loss in 2 months, albumin 1.9, bitemporal wasting. H/o TRINY not on CPAP probably resolved now due to massive weight loss. Neuropathy with essential tremor gabapentin Mood disorder venlafaxine Plan / VTE VTE Prophylaxis Ordered?: Yes COSME MORRIS MD Mar 11, 2020 14:01
--- NOTE | 2020-03-11 19:58 | ECGEPIP ---
[facility] - ED Test Date: 2020-03-11 Pat Name: OPAL VALENZUELA Department: Room: - Gender: Female Network Management Specialist: JERARDO : 1950 Requested By: Kojo Rivera Order Number: [id number] Reading MD: Susie Bacon Measurements Intervals [place] Rate: 119 P: 33 HI: 133 QRS: -20 QRSD: 97 T: 155 QT: 339 QTc: 478 Interpretive Statements SINUS TACHYCARDIA LEFT ATRIAL ENLARGEMENT LEFT VENTRICULAR HYPERTROPHY AND ST-T CHANGE VS ISCHEMIA INCREASED RATE 02/27/20 Electronically Signed on 03-11-2020 19:58:38 EST by Susie Bacon
[2020-03-11 20:00] VITALS: BP 111/59
[2020-03-11] MEDS: LEVALBUTEROL 1.25 MG/0.5 ML CONCENTRATE NEB INH SCH (20:00)
[2020-03-11] MEDS: GABAPENTIN 100 MG CAP PO SCH (20:34)
[2020-03-11] MEDS: SYMBICORT 160/4.5MCG INHALER 6GM INH SCH (21:00)
[2020-03-12] VITALS: BP 123/59
[2020-03-12] MEDS: LEVALBUTEROL 1.25 MG/0.5 ML CONCENTRATE NEB INH SCH ×4 (02:00→20:35)
[2020-03-12 04:00] VITALS: BP 132/62
[2020-03-12] MEDS: NS 1,000 ML IV SCH (05:37)
[2020-03-12 06:17] LABS: BASO # 0.1 10^3/uL (0.0-0.2); BASO % 0.4 % (0.0-1.0); EOS % 17.7 % (0.0-3.0); HEMATOCRIT 35.1 % (36.0-47.0); HEMOGLOBIN 10.9 g/dl (12.0-15.5); LYMPH % 5.7 % (24.0-44.0); MEAN CORPUSCULAR HEMOGLOBIN 26.8 pg (27.0-33.0); MEAN CORPUSCULAR HGB CONC 31.1 g/dl (32.0-36.5); MEAN CORPUSCULAR VOLUME 86.5 fl (80.0-96.0); MONO # 1.3 10^3/uL (0.0-0.8); MONO % 7.5 % (0.0-5.0); NEUTROPHILS # 11.6 10^3/uL (1.5-8.5); NEUTROPHILS % 67.6 % (36.0-66.0); PLATELET COUNT, AUTOMATED 242 10^3/uL (150-450); RED BLOOD COUNT 4.06 10^6/uL (4.00-5.40); WHITE BLOOD COUNT 17.1 10^3/uL (4.0-10.0)
[2020-03-12 06:49] LABS: ALBUMIN 1.8 GM/DL (3.2-5.2); ALT/SGPT 10 U/L (12-78); BILIRUBIN,TOTAL 0.2 MG/DL (0.2-1.0); BLOOD UREA NITROGEN 15 MG/DL (7-18); CALCIUM LEVEL 8.9 MG/DL (8.8-10.2); CARBON DIOXIDE LEVEL 27 MEQ/L (21-32); CHLORIDE LEVEL 107 MEQ/L (98-107); GLOMERULAR FILTRATION RATE > 60.0 (>39); GLUCOSE, FASTING 104 MG/DL (70-100); MAGNESIUM LEVEL 1.5 MG/DL (1.8-2.4); POTASSIUM SERUM 3.6 MEQ/L (3.5-5.1); SODIUM LEVEL 141 MEQ/L (136-145); TOTAL PROTEIN 6.5 GM/DL (6.4-8.2)
[2020-03-12 07:08] VITALS: BP 146/81
[2020-03-12] MEDS: TIOTROPIUM INHALER/CAPSULE (SPIRIVA) INH SCH (08:00)
[2020-03-12] MEDS: SYMBICORT 160/4.5MCG INHALER 6GM INH SCH ×2 (08:19→20:00)
[2020-03-12] MEDS: VENLAFAXINE **XR** 75MG CAPSULE PO SCH (08:57)
[2020-03-12] MEDS: MORPHINE 10MG/0.5ML ORAL CONCENTRATE SOLUTION U/D SL PRN (08:57)
[2020-03-12] MEDS: GABAPENTIN 100 MG CAP PO SCH ×2 (08:57→21:22)
[2020-03-12] MEDS: ASPIRIN 81 MG ENTERIC TAB PO SCH (08:57)
[2020-03-12] MEDS: METOPROLOL SUCC *XL* 25MG TAB (TopROL *XL*) PO SCH (08:58)
[2020-03-12 09:51] VITALS: BP 107/59
--- NOTE | 2020-03-12 13:35 | RADENCPD ---
Date/Time of Encounter Date of Encounter: Mar 12, 2020 Time of Encounter: 13:26 Encounter I saw April at bedside today. She is eating some pureed food with less difficulty. Her breathing is the same. I spoke with her about the pros and cons of continuing her palliative RT course to the right chest. On one hand, there is potential for the right lung baron- hilar mass to respond to RT which could improve her pulmonary status, on the other, RT has given her the dysphagia and odynophagia she is experiencing due to esophagitis. The timecourse of recovery from the esophagitis is 2-3 weeks post cessation of RT. She has 5 remaining treatments, so continuing would extend the duration of her swallowing symptoms another week or so. She would like to discuss with her prior to deciding to continue or not. I made sure to tell her that the decisions regarding RT are independent of continuing keytruda. I strongly encouraged her to continue keytruda if she is able as she has only received 2 cycles thus far, and she may yet mount a favorable response to the drug. In the meantime, I recommend the addition of magic mouthwash PO PRN immediately prior to eating meals/drinking fluids, which in conjunction with the morphine liquid she is already ordered, should be effective for her esophagitis symptoms. I will visit her again tomorrow. ELBA MILLER MD Mar 12, 2020 13:35
[2020-03-12 14:00] VITALS: BP 109/59
--- NOTE | 2020-03-12 14:57 | IPNPDOC ---
Text Note Date of Service The patient was seen on 03/12/20. 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 Pleural thickening and loculated hydropneumothorax on the right persists essentially unchanged. Continue oxygen Leukocytosis Slightly improved Patient afebrile, procalcitonin negative, patient normotensive Leukocytosis could be attributed to malignancy COPD Continue inhalers Atrial fibrillation with RVR Heart rate is under control Continue home cardioprotective medications per patient, AC was stopped by cardiology (Dr. Dela Cruz) Dysphagia Due to esophagitis secondary to radiation therapy Continue magic mouthwash Liquid diet Diabetes Glucose level under control Patient lost significant amount of weight, does not need oral medications Severe protein malnutrition Severe protein calorie malnutrition > 10 kgs weight loss in 2 months, albumin 1.9, bitemporal wasting. H/o TRINY not on CPAP probably resolved now due to massive weight loss. Neuropathy with essential tremor gabapentin Mood disorder Venlafaxine Failure to thrive Palliative care PT/OT VS,Fishbone, I+O VS, Fishbone, I+O Laboratory Tests 03/12/20 05:40 Vital Signs Date Time Temp Pulse Resp B/P (MAP) Pulse Ox O2 Delivery O2 Flow Rate FiO2 03/12/20 09:51 1.0 03/12/20 09:51 97.3 90 18 107/59 (75) 95 Nasal Cannula I&O- Last 24 Hours up to 6 AM 03/12/20 06:00 Intake Total 1912.5 ml Output Total 350 ml Balance 1562.5 ml MONALISA OROZCO DO Mar 12, 2020 14:57
[2020-03-12] MEDS ORDERED: FUROSEMIDE 40MG/4ML VIAL (J1940) IV ONE (15:00)
[2020-03-12] MEDS ORDERED: COMBIVENT RESPIMAT 100-20MCG INHALER 4GM INH PRN (16:00)
[2020-03-12] MEDS: POTASSIUM CHLORIDE 10 MEQ SR TABLET PO SCH (16:04)
[2020-03-12] MEDS: NORCO, ANEXSIA 5/325MG TABLET (HYDROcodone/ACETAMINOPHEN) PO PRN ×2 (16:04→21:23)
[2020-03-12] MEDS: lisinopriL 5 MG TAB PO SCH (16:04)
[2020-03-12] MEDS: FUROSEMIDE 20 MG TAB PO SCH (16:05)
[2020-03-13] MEDS: LEVALBUTEROL 1.25 MG/0.5 ML CONCENTRATE NEB INH SCH ×3 (02:12→13:41)
[2020-03-13 06:00] VITALS: BP 130/70
[2020-03-13] MEDS: NORCO, ANEXSIA 5/325MG TABLET (HYDROcodone/ACETAMINOPHEN) PO PRN (06:30)
[2020-03-13 07:16] LABS: BASO # 0.1 10^3/uL (0.0-0.2); BASO % 0.4 % (0.0-1.0); EOS # 2.5 10^3/uL (0.0-0.5); EOS % 14.7 % (0.0-3.0); HEMATOCRIT 38.2 % (36.0-47.0); HEMOGLOBIN 11.6 g/dl (12.0-15.5); LYMPH # 0.9 10^3/uL (1.5-5.0); LYMPH % 5.4 % (24.0-44.0); MEAN CORPUSCULAR HEMOGLOBIN 26.2 pg (27.0-33.0); MEAN CORPUSCULAR HGB CONC 30.4 g/dl (32.0-36.5); MEAN CORPUSCULAR VOLUME 86.4 fl (80.0-96.0); MONO # 1.3 10^3/uL (0.0-0.8); MONO % 7.7 % (0.0-5.0); NEUTROPHILS # 11.9 10^3/uL (1.5-8.5); NEUTROPHILS % 70.5 % (36.0-66.0); PLATELET COUNT, AUTOMATED 198 10^3/uL (150-450); RED BLOOD COUNT 4.42 10^6/uL (4.00-5.40); WHITE BLOOD COUNT 16.9 10^3/uL (4.0-10.0)
[2020-03-13] MEDS: SYMBICORT 160/4.5MCG INHALER 6GM INH SCH (07:24)
[2020-03-13] MEDS: TIOTROPIUM INHALER/CAPSULE (SPIRIVA) INH SCH (07:24)
[2020-03-13 08:01] LABS: BLOOD UREA NITROGEN 10 MG/DL (7-18); CALCIUM LEVEL 8.9 MG/DL (8.8-10.2); CARBON DIOXIDE LEVEL 33 MEQ/L (21-32); CHLORIDE LEVEL 105 MEQ/L (98-107); CREATININE FOR GFR 0.34 MG/DL (0.55-1.30); GLOMERULAR FILTRATION RATE > 60.0 (>39); GLUCOSE, FASTING 122 MG/DL (70-100); POTASSIUM SERUM 3.6 MEQ/L (3.5-5.1); SODIUM LEVEL 141 MEQ/L (136-145)
[2020-03-13 08:26] VITALS: BP 130/70
[2020-03-13] MEDS: VENLAFAXINE **XR** 75MG CAPSULE PO SCH (08:26)
[2020-03-13] MEDS: POTASSIUM CHLORIDE 10 MEQ SR TABLET PO SCH (08:26)
[2020-03-13] MEDS: GABAPENTIN 100 MG CAP PO SCH (08:26)
[2020-03-13] MEDS: METOPROLOL SUCC *XL* 25MG TAB (TopROL *XL*) PO SCH (08:26)
[2020-03-13] MEDS: lisinopriL 5 MG TAB PO SCH (08:26)
[2020-03-13] MEDS: FUROSEMIDE 20 MG TAB PO SCH (08:26)
[2020-03-13] MEDS: ASPIRIN 81 MG ENTERIC TAB PO SCH (08:27)
--- NOTE | 2020-03-13 10:24 | RADENCPD ---
Date/Time of Encounter Date of Encounter: Mar 13, 2020 Time of Encounter: 10:23 Encounter Spoke to April @ bedside. She discussed with her and has decided she would like to complete RT. I will facilitate this so she can be discharged home. She can follow up with me outpatient for her treatments post discharge. ELBA MILLER MD Mar 13, 2020 10:24
[2020-03-13] MEDS ORDERED: LASI40TA9 PO (10:48)
--- NOTE | 2020-03-13 13:26 | DS.PDOC ---
Discharge Summary General Date of Admission Mar 11, 2020 at 13:44 Date of Discharge 03/13/20 Discharge Summary PROCEDURES PERFORMED DURING STAY: [None]. ADMITTING DIAGNOSES: Shortness of breath Leukocytosis COPD Atrial fibrillation with RVR Dysphagia Diabetes Severe protein malnutrition Neuropathy with essential tremor Mood disorder Failure to thrive DISCHARGE DIAGNOSES: Shortness of breath Leukocytosis COPD Atrial fibrillation with RVR Dysphagia Diabetes Severe protein malnutrition Neuropathy with essential tremor Mood disorder Failure to thrive COMPLICATIONS/CHIEF COMPLAINT: Metastatic Primary Lung Cancer/Failure To Thrive. 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 Pleural thickening and loculated hydropneumothorax on the right persists essentially unchanged. Continue oxygen Leukocytosis Slightly improved Patient afebrile, procalcitonin negative, patient normotensive Leukocytosis could be attributed to malignancy COPD Continue inhalers Atrial fibrillation with RVR Heart rate is under control Continue home cardioprotective medications per patient, AC was stopped by cardiology (Dr. Dela Cruz) Dysphagia Due to esophagitis secondary to radiation therapy Continue magic mouthwash Liquid diet Diabetes Glucose level under control Patient lost significant amount of weight, does not need oral medications Severe protein malnutrition Severe protein calorie malnutrition > 10 kgs weight loss in 2 months, albumin 1.9, bitemporal wasting. H/o TRINY not on CPAP probably resolved now due to massive weight loss. Neuropathy with essential tremor gabapentin Mood disorder Venlafaxine Failure to thrive Palliative care PT/OT DISCHARGE MEDICATIONS: Please see below. ALLERGIES: Please see below. PHYSICAL EXAMINATION ON DISCHARGE: VITAL SIGNS: Please see below. HEENT: no scleral icterus, no JVD, EOMI CARDIOVASCULAR: S1S2 LUNGS: Diminished lung sounds bilaterally ABDOMEN: soft & not tender w palpitation MUSCULOSKELETAL: no cyanosis, no swelling INTEGUMENT: no generalized pallor NEUROLOGICAL: cranial nerve function from 2-12 intact intact, follows commands, speech not dysarthric LABORATORY DATA: Please see below. PROGNOSIS: Poor ACTIVITY: [As tolerated]. DIET: modified diet ITEMS TO FOLLOWUP ON ON OUTPATIENT: with oncologist DISCHARGE CONDITION: [Stable]. TIME SPENT ON DISCHARGE: Greater than40 minutes. Vital Signs/I&Os Vital Signs Date Time Temp Pulse Resp B/P (MAP) Pulse Ox O2 Delivery O2 Flow Rate FiO2 03/13/20 09:29 2.0 03/13/20 08:26 130/70 03/13/20 07:15 16 03/13/20 06:00 98.0 99 96 Room Air I&O- Last 24 Hours up to 6 AM 03/13/20 06:00 Intake Total 1035 ml Output Total 1950 ml Balance -915 ml Laboratory Data Labs 24H Laboratory Tests 2 03/12/20 16:38: Bedside Glucose (Misc Panel) 112H 03/13/20 05:40: Bedside Glucose (Misc Panel) 123H 03/13/20 06:34: Immature Granulocyte % (Auto) 1.3, Neutrophils (%) (Auto) 70.5H, Lymphocytes (%) (Auto) 5.4L, Monocytes (%) (Auto) 7.7H, Eosinophils (%) (Auto) 14.7H, Basophils (%) (Auto) 0.4, Neutrophils # (Auto) 11.9H, Lymphocytes # (Auto) 0.9L, Monocytes # (Auto) 1.3H, Eosinophils # (Auto) 2.5H, Basophils # (Auto) 0.1, Nucleated Red Blood Cells % (auto) 0.0 03/13/20 07:21: Anion Gap 3L, Glomerular Filtration Rate > 60.0, Calcium Level 8.9 CBC/BMP Laboratory Tests 03/13/20 06:34 03/13/20 07:21 FSBS Laboratory Tests Test 03/12/20 16:38 03/13/20 05:40 Range/Units Bedside Glucose (Misc Panel) 112 123 83-110 MG/DL Microbiology Microbiology 03/11/20 Blood Culture - Preliminary, Resulted No growth after 24 hours . All specim... 03/11/20 Blood Culture - Preliminary, Resulted No Growth after 48 hours. All Specime... Discharge Medications Scheduled Aspirin (Aspirin EC) 81 Mg Tablet.dr, 81 MG PO DAILY, (Reported) Atorvastatin Calcium (Atorvastatin Calcium) 40 Mg Tablet, 40 MG PO DAILY, (Reported) Budesonide/Formoterol (Symbicort 160-4.5 Mcg Inhaler) 6 Gm Hfa.aer.ad, 2 PUFF INH BID, (Reported) Calcium Carbonate/Vitamin D3 (Calcium 600+D Softgel) 1 Each Capsule, 1 CAP PO BID, (Reported) Dulaglutide (Trulicity) 0.75 Mg/0.5 Ml Pen.injctr, 0.75 MG SC QWEEK, (Reported) SUNDAYS Fluticasone/Vilanterol (Breo Ellipta 100-25 Mcg INH) 1 Each Blst.w.dev, 1 PUFF INH DAILY, (Reported) Furosemide (Lasix) 40 Mg Tablet, 40 MG PO DAILY Gabapentin (Gabapentin) 100 Mg Capsule, 200 MG PO BID, (Reported) Glipizide (Glipizide ER) 5 Mg Tab.er.24, 5 MG PO DAILY, (Reported) Lisinopril (Lisinopril) 5 Mg Tablet, 5 MG PO DAILY, (Reported) Magnesium Oxide (Magnesium) 400 Mg Capsule, 1 CAP PO DAILY for constipation Metformin HCl (Metformin HCl) 1,000 Mg Tab, 1,000 MG PO BID, (Reported) Metoprolol Succinate (Metoprolol Succinate) 25 Mg Tab.er.24h, 25 MG PO QHS, (Reported) Potassium Chloride (K-Tab ER) 10 Meq Tablet.er, 10 MEQ PO DAILY Venlafaxine HCl (Venlafaxine HCl ER) 150 Mg Cap, 150 MG PO DAILY, (Reported) Scheduled PRN Fluticasone Propionate (Fluticasone Propionate) 50 Mcg/Act Spr, 1 SPRAY NARES QHS PRN for CONGESTION, (Reported) Hydrocodone/Acetaminophen (Hydrocodone-Acetamin 5-325 mg) 1 Each Tablet, 1 TAB PO Q4H PRN for PAIN Ipratropium/Albuterol Sulfate (Combivent Respimat 20-100 Mcg) 4 Gm Mist.inhal, 2 PUFF INH QID PRN for SHORTNESS OF BREATH, (Reported) Magic Mouthwash (First-Mouthwash Blm) 1 Ea Susp, 10 ML PO QID PRN for Dysphagia (Diphenhydramine/maalox/lidocaine 1:1:1) Take with straw by mouth and swallow Allergies Coded Allergies: Penicillins (Verified Allergy, Intermediate, HIVES, 12/26/19) nickel (Verified Allergy, Intermediate, rash, swelling, 12/26/19) aspirin (Verified Adverse Reaction, Intermediate, HIVES WITH NORMAL DOSE FOR SEVERAL DAYS, 03/11/20) TAKES 81MG AT HOME DAILY MONALISA OROZCO DO Mar 13, 2020 13:26
[2020-03-13] MEDS ORDERED: BARIUM SULFATE 700 MG TABLET (E-Z-DISK) As Ordered ONE (13:38)
[2020-03-13] MEDS ORDERED: VARIBAR NECTAR 40% w/v 240ML SUSP BTL As Ordered ONE (13:38)
[2020-03-13] MEDS ORDERED: VARIBAR PUDDING 40% w/v 230ML TUBE As Ordered ONE (13:38)
[2020-03-13] MEDS ORDERED: E-Z-PAQUE 96% w/w SUSP 176GM BTL As Ordered ONE (13:38)
[2020-03-13 14:00] VITALS: BP 105/59
--- NOTE | 2020-03-13 18:05 | REP ---
INDICATION: difficulty swallowing. COMPARISON: None. TECHNIQUE: The procedure was performed under the direct supervision of Dr. French. The procedure was performed with Luisa Delacruz from speech pathology present. 5 cc aliquots of thin, nectar, pudding and honey consistency barium was administered. FINDINGS: With all consistencies there is laryngeal penetration. A detailed report of this examination will be provided by speech pathology. 1.6 minutes of fluoroscopy time was utilized for this procedure. IMPRESSION: With all consistencies of barium there is laryngeal penetration. A detailed report of this examination will be provided by speech pathology. <Electronically signed by Eliezer Harrison > 03/13/20 1640 <Electronically signed by Sharad French > 03/13/20 1805
[2020-03-14] MEDS ORDERED: OXYC1SOL3 PO (11:23)
== END 2020-03-13 16:05 | disposition home health service (06) | DRG 640 ==
LOC: M ED 11:03 → M ED INP 13:44 → ENRESERV 15:07 → M PCU 17:55 → M MS5PR 03-12 09:44
PROVIDERS: ADMIT Internal Medicine Nephrology; ATTEND Internal Medicine
DX: R62.7 Adult failure to thrive (principal); E43 Unspecified severe protein-calorie malnutrition; C34.01 Malignant neoplasm of right main bronchus; J91.0 Malignant pleural effusion; J98.11 Atelectasis; E86.0 Dehydration; I48.0 Paroxysmal atrial fibrillation; I10 Essential (primary) hypertension; E78.5 Hyperlipidemia, unspecified; E11.9 Type 2 diabetes mellitus without complications; J44.9 Chronic obstructive pulmonary disease, unspecified; G47.33 Obstructive sleep apnea (adult) (pediatric); E11.40 Type 2 diabetes mellitus with diabetic neuropathy, unspecified; R06.02 Shortness of breath; G25.0 Essential tremor; Z98.41 Cataract extraction status, right eye; Z98.42 Cataract extraction status, left eye; Z96.651 Presence of right artificial knee joint; Z87.891 Personal history of nicotine dependence; R13.10 Dysphagia, unspecified; R63.4 Abnormal weight loss; Z79.82 Long term (current) use of aspirin; Z79.899 Other long term (current) drug therapy; Z79.84 Long term (current) use of oral hypoglycemic drugs; Z88.0 Allergy status to penicillin; Z88.6 Allergy status to analgesic agent; Z91.048 Other nonmedicinal substance allergy status

== ENCOUNTER 2020-03-19 10:42 | Outpatient (RCR) | payer MEDICARE ==
--- NOTE | 2020-03-11 09:56 | RADENCPD ---
Date/Time of Encounter Date of Encounter: Mar 11, 2020 Time of Encounter: 09:48 Encounter April's called today to report that April has been struggling at home. He says that her breathing is more labored and her swallowing has become more painful. They have been trying magic mouthwash without much positive effect. They have hydrocodone pills but these have become hard to swallow. Her fatigue is mounting. I recommend that she come to the ED as she is frail and her pulmonary status is tenuous. With respect to the dysphagia and odynophagia, this is radiation related. I would try her on liquid oxycodone for this. We can hold radiation today and look to resume in the next 1-2 days pending her clinical course. I will come see her if she is admitted to the hospital. If she is sent home from the ED, I will follow up with her tomorrow. ELBA MILLER MD Mar 11, 2020 09:56
--- NOTE | 2020-03-14 11:26 | RADENCPD ---
Date/Time of Encounter Date of Encounter: Mar 14, 2020 Time of Encounter: 11:24 Encounter Spoke to April post-discharge from hospital. She feels the same, dyspnea manageable, wearing 2 L O2. Asked about a lasix Rx, which is a discharge medication from the hospital. It is on her med rec. I talked to her about changing her norco pill to liquid oxycodone which is easier to take and in my experience more effective for esophagitis. She agreed to try it 5 mg q4h PRN. day script sent. Will see her on Wednesday for weekly management visit. ELBA MILLER MD Mar 14, 2020 11:26
[~2020-03-19 10:42] MED LIST changes: +LASI40TA9 PO; +LISI-542 PO; -LISI-898 PO; +OXYC1SOL3 PO; +SYMB16INH INH
[2020-03-25] MEDS ORDERED: FURO40TA2 PO (19:13)
[2020-03-25] MEDS ORDERED: MAGN400T3 PO (19:13)
[2020-03-25] MEDS ORDERED: OXYC1SOL3 PO (19:13)
[2020-03-25] MEDS ORDERED: MAGICMW SSP (19:13)
== END 2020-03-24 ==
LOC: M ONCR 10:42
PROVIDERS: ATTEND General Practice
DX: C34.31 Malignant neoplasm of lower lobe, right bronchus or lung (principal)

== ENCOUNTER 2020-03-25 15:38 | Inpatient (IN) | payer MEDICARE ==
[~2020-03-25] VITALS: Ht 157.5 cm; Wt 46.5 kg
[~2020-03-25 15:38] MED LIST changes: -LISI-542 PO; +LISI-898 PO
--- OUTSIDE RECORDS SUMMARY | 2020-03-25 15:45 | CCD ---
Author Author [facility] Organization [facility] Address Unknown Phone Unavailable Care Team Providers Care Mushroom Grower Name Role Phone Denise Self Unavailable PROBLEMS Type Condition ICD9-CM Code [id number] Code Onset Dates Condition S tatus SNOMED Code Notes Problem Chronic seasonal allergic rhinitis, unspecified trigger J30.2 Active 484506264 Problem Ataxic gait R26.0 Active 25933977 Problem Essential (primary) hypertension I10 Active 61113502 Well-controlled on the center prole 5 mg daily, no medication changes have been made Problem Mixed hyperlipidemia E78.2 Active 106900868 G enerally controlled on atorvastatin 40 mg daily, only triglycerides are elevated, so we discussed fats in the diet Problem Reactive depression (situational) F32.9 Active 82202056 Problem Obstructive sleep apnea (adult) (pediatric) G47.33 Active 64762406 Problem Situational depression F43.21 Active 58493457 Problem Type 2 diabetes mellitus with diabetic polyneuropathy E11.42 Active 16478468 Significant elevation in hemoglobin A1c, although 7.1 is not particularly alarming. We discussed diet Problem Other chronic pain G89.29 Active 43241164 Problem Gastroesophageal reflux disease K21.9 Active 462572495 Problem Interstitial lung disease J84.9 Active 130764 007 Problem Pain, cancer G89.3 Active 84162369805422 ALLERGIES Allergen (clinical drug ingredient) Drug/Non Drug Allergy do cumented on EMR Reaction Allergy Type Onset Date Status Nickel Hives Non Drug Allergy Active Penicillin (For Allergies Use Only) Hives Drug Allerg y Active aspirin Aspirin([facility] Code:[address]-10) Hives Drug Allergy Active ENCOUNTERS from 1950 to 2020-03-11 Encounter Location Date Provider Diagnosis [facility] [place]les [address] [place] [phone] Feb, Denise Rabagojane IMMUNIZATIONS Vaccine Route Administration [...] Education Language: Question Answer Notes Languages spoken: Azeri Baptism: Question Answer Notes Baptism 33 None Domestic Violence: Question Answer Notes [...] day for 30 da y(s) Active Pen [place] 31G X 6 MM as directed subcutaneously [...] Information RESULTS No Results REASON FOR VISIT difficulty breathing/feeding tube MEDICAL (GENERAL) HISTORY Type Description Date Medical History HTN Medical History hyperlipidemia Medical History T2DM with mild proteinuria Medical History TRINY on CPAP Medical History Depression Medical History Shingrix at [facility] Surgical History 1984 Surgical History Right total [...] for 30 day(s) Next Appt Details Provider Name:Luke Goodman, 2020-03-19 03:0 0:00 PM, [address] [place] [address], [phone] Provider Name:Denise Self, 05 09:30:00 AM, [address] [place] [address], [phone], Insurance Providers Payer Name Payer Address Payer Phone Insured Name Patient Relati onship to Insured Coverage Start Date Coverage End Date MEDICARE COMPLETE UNITED [employer] [address] [address] [facility] [id number] OPAL VALENZUELA
--- OUTSIDE RECORDS SUMMARY | 2020-03-25 15:45 | CCD ---
Author Author [facility] Organization [facility] Address Unknown Phone Unavailable Care Team Providers Care Nursing Home Admissions Director Name Role Phone Denise Self Unavailable PROBLEMS Type Condition ICD9-CM Code [id number] Code Onset Dates Condition S tatus SNOMED Code Notes Problem Chronic seasonal allergic rhinitis, unspecified trigger J30.2 Active 742696132 Problem Ataxic gait R26.0 Active 98891579 Problem Essential (primary) hypertension I10 Active 69074834 Well-controlled on the center prole 5 mg daily, no medication changes have been made Problem Mixed hyperlipidemia E78.2 Active 718593260 G enerally controlled on atorvastatin 40 mg daily, only triglycerides are elevated, so we discussed fats in the diet Problem Reactive depression (situational) F32.9 Active 29597032 Problem Obstructive sleep apnea (adult) (pediatric) G47.33 Active 52638943 Problem Situational depression F43.21 Active 69165812 Problem Type 2 diabetes mellitus with diabetic polyneuropathy E11.42 Active 11772542 Significant elevation in hemoglobin A1c, although 7.1 is not particularly alarming. We discussed diet Problem Other chronic pain G89.29 Active 37390763 Problem Gastroesophageal reflux disease K21.9 Active 433998740 Problem Interstitial lung disease J84.9 Active 152230 007 Problem Pain, cancer G89.3 Active 48261023105046 ALLERGIES Allergen (clinical drug ingredient) Drug/Non Drug Allergy do cumented on EMR Reaction Allergy Type Onset Date Status Nickel Hives Non Drug Allergy Active Penicillin (For Allergies Use Only) Hives Drug Allerg y Active aspirin Aspirin([facility] Code:[address]-67) Hives Drug Allergy Active ENCOUNTERS from 1950 to 2020-03-20 Encounter Location Date Provider Diagnosis [facility] Myles [address] [place] [phone] Feb, Denise Rabagojane IMMUNIZATIONS Vaccine Route Administration [...] Education Language: Question Answer Notes Languages spoken: Telugu Jew: Question Answer Notes Jew 33 None Domestic Violence: Question Answer Notes [...] Notes Start Da te End Date Status Triamcinolone Acetonide 0.1 % 1 application to the cor ner of your mouth Externally Twice a day Active Trulicity 0.75 MG/0.5ML as directed Subcutaneous weekly for 336 Active Vitamin D-3 1000 UNIT 2 capsules Orally Once a day Active Aspirin 81 MG 1 tablet Orally Once a day for 90 day(s) Active Breo Ellipta 100-25 MCG/INH 1 puff Inhalation Once a day Active Furosemide 40 MG 1 tablet Orally Once a day for 30 day(s) Feb, Active Lisinopril 5 MG 1 tablet Orally Once a day PRN Hold if HBP 120/70 for 90 Active Venlafaxine HCl ER 150 MG 1 capsule with food Orally Once a day for 90 day(s) Active First-BXN Mouthwash 10 po as needed for dysphagia qid/prn Active Combivent 20-100mcg 2 puffs inhaled qid/prn for shortness of breath Active Magnesium Oxide 400 MG 1 tablet with food Orally Once a day for 30 da y(s) Active Metoprolol Succinate 25 MG 1 capsule Orally Once a day for 30 day(s) Active GlipiZIDE ER 5 MG 1 tablet Orally Once a day for 90 day(s) Active Glucosamine HCl-MSM 750-750 MG 1 tablet Orally Twice a day Unknown One Touch Delica 33 gauge as directed On side of finge r Twice daily. DX: Z79.4 for 30 Days Active Calcium + D3 600-200 MG-UNIT 1 tablet with a meal Orally Twice a day Active Fluticasone Propionate 50 MCG/ACT 1 spray in each nost ril Nasally Once a day for 30 day(s) Active Fluticasone Propionate 50 MCG/ACT 1 spray in each nost ril Nasally Once a day for 30 day(s) Dec, Unknown Meclizine HCl 25 mg 1 tablet as needed Orally twice a day Active Symbicort 160-4.5 MCG/ACT 2 puffs Inhalation Twice a day Active Atorvastatin Calcium 40 1 tablet Orally Once a day Active Metformin HCl 1000 1 tablet with a meal orally twice daily Active Ketoconazole 2 % as directed Externally weekly Aug, 9 Active Gabapentin 100 MG 1 capsule Orally bid Active OneTouch Verio 0 as directed DX: E11.42 twice daily Active CPAP Machine as directed Wear nasal mask Nightly. DX: TRINY, G47.33 for 99 months Sep, Active Hydrocodone-Acetaminophen 5-325 MG 1 tablet as needed Orally bid as needed for severe pain for 7 day(s) Jan, Unknown Albuterol Sulfate 108 (90 Base) MCG/ACT 1 puff as need ed Inhalation every 8 hrs as needed for 66 Unknown Pen [place] 31G X 6 MM as directed subcutaneously Carolyn rush. DX: E11.42 Aug, Active PROCEDURES No Information RESULTS No Results REASON FOR VISIT concerns MEDICAL (GENERAL) HISTORY Type Description Date Medical History HTN Medical History hyperlipidemia Medical History T2DM with mild proteinuria Medical History TRINY on CPAP Medical History Depression Medical History Shingrix at [facility] Surgical History 1984 Surgical History [...] MG 1 tablet Orally Once a day PRN Hold if HBP 120/7 0 for 90 Next Appt Details Provider Name:Denise Rabagojane, 2020-0 03-29 09:30:00 AM, [address] [place], [phone], Insurance Providers Payer Name Payer Address Payer Phone Insured Name Patient Relati onship to Insured Coverage Start Date Coverage End Date MEDICARE COMPLETE UNITED [employer]CARE [address] [address] [facility] [phone] OPAL VALENZUELA self
--- OUTSIDE RECORDS SUMMARY | 2020-03-25 15:45 | CCD ---
Author Author [facility] Organization [facility] Address Unknown Phone Unavailable Care Team Providers Care Senior Controller Name Role Phone Denise Self Unavailable PROBLEMS Type Condition ICD9-CM Code [id number] Code Onset Dates Condition S tatus SNOMED Code Notes Problem Chronic seasonal allergic rhinitis, unspecified trigger J30.2 Active 889703643 Problem Ataxic gait R26.0 Active 71911085 Problem Essential (primary) hypertension I10 Active 67035583 Well-controlled on the center prole 5 mg daily, no medication changes have been made Problem Mixed hyperlipidemia E78.2 Active 102001032 G enerally controlled on atorvastatin 40 mg daily, only triglycerides are elevated, so we discussed fats in the diet Problem Reactive depression (situational) F32.9 Active 41405890 Problem Obstructive sleep apnea (adult) (pediatric) G47.33 Active 44408116 Problem Situational depression F43.21 Active 06952676 Problem Type 2 diabetes mellitus with diabetic polyneuropathy E11.42 Active 08047165 Significant elevation in hemoglobin A1c, although 7.1 is not particularly alarming. We discussed diet Problem Other chronic pain G89.29 Active 07053528 Problem Gastroesophageal reflux disease K21.9 Active 804289557 Problem Interstitial lung disease J84.9 Active 381089 007 Problem Pain, cancer G89.3 Active 61902629757930 ALLERGIES Allergen (clinical drug ingredient) Drug/Non Drug Allergy do cumented on EMR Reaction Allergy Type Onset Date Status Nickel Hives Non Drug Allergy Active Penicillin (For Allergies Use Only) Hives Drug Allerg y Active aspirin Aspirin([facility] Code:[address]-09) Hives Drug Allergy Active ENCOUNTERS from 1950 to 2020-03-17 Encounter Location Date Provider Diagnosis [facility] Myles [address] [place] [phone] Feb, Denise Self Hyperlipidemia E78.5 and Essential (prim jus) hypertension I10 IMMUNIZATIONS Vaccine Route Administration Date Status Influenza [...] Language: Question Answer Notes Languages spoken: Telugu Mu-Ism: Question Answer Notes Mu-Ism 33 None Domestic Violence: Question Answer Notes [...] hrs as needed for 66 Unknown Pen [place] 31G X 6 MM as directed subcutaneously W jamal with trulicity. DX: E11.42 Aug, Active PROCEDURES No Information RESULTS No Results REASON FOR VISIT [facility] D/[facility] 03/13; Metastatic Primary Lung Cancer MEDICAL (GENERAL) HISTORY Type Description Date Medical History HTN Medical History hyperlipidemia Medical History T2DM with mild proteinuria Medical History TRINY on CPAP Medical History Depression Medical History [facility] at [facility] Surgical History 1984 Surgical History Right total knee, Dr. Karthikeyan Walton 201 5 Surgical History Bilateral cataract surgery-Dr. De Jesus 05/2018 Hospitalization History Diabetes 2015 Goals Section No Information Health Concerns No Information MEDICAL EQUIPMENT No Information MENTAL STATUS No Information FUNCTIONAL STATUS No Information ASSESSMENTS Encounter Date Diagnosis Assessment Notes Treatment Notes Treatm ent Clinical Notes Feb, Hyperlipidemia (ICD-10 - E78.5) Feb, Essential (primary) hypertension (ICD-10 - I10) Feb, Other Discussion with patient about recent hospital discharge. Medication reconciliation completed. Patient reports she is doing OK with the help of her and the [facility] Nurses visiting. Denies any other issues. Walking with a walker, has a lift chair. PLAN OF TREATMENT Medication Medication Name Sig Start Date Stop Date Lisinopril 5 MG 1 tablet Orally Once a day PRN Hold if HBP 120/7 0 for 90 Next Appt Details Provider Name:Luke Goodman, 2020-03-19 03:0 0:00 PM, [address] [place] [address], [phone] Provider Name:Denise Self, -05 09:30:00 AM, [address] [place] [address], [phone], Insurance Providers Payer Name Payer Address Payer Phone Insured Name Patient Relati onship to Insured Coverage Start Date Coverage End Date MEDICARE COMPLETE UNITED [employer]ARE [address] [address] [facility] [id number] OPAL VALENZUELA
--- OUTSIDE RECORDS SUMMARY | 2020-03-25 15:47 | CCD ---
Author Author [facility] Organization [facility] Address Unknown Phone Unavailable Care Team Providers Care Counterperson Name Role Phone Jasiel Dela Cruz MD [...] J Carmen PA Unavailable Unavailable Trickey, J Acrmen PA Unavailable Unavailable Trickey, J Carmen PA Unavailable Unavailable Trickey, J Carmen PA Unavailable Unavailable Trickey, J Caremn PA Unavailable Unavailable Trickey, J Carmen PA [...] Unavailable Briana Hughes MD Unavailable Unavailable Briana Hughse MD Unavailable Unavailable Briana Hughes MD Unavailable [...] Unavailable Unavailable Briana Hughes MD Unavailable Unavailable MattBriana MD Unavailable Unavailable Matt, Briana WILDER Unavailable [...] DE JESUS ALICE DO Unavailable [phone] YULIYA, A. ALICE DO Unavailable [phone] Nicole DE JESUS DO Unavailable [phone] Re-disclosure Warning The records that you are [...] is protected by Article 27-F of the [facility] Public Health law. If you continue you may have access to information: Regarding HIV / AIDS; Provided by facilities licensed or operated by the [facility] Office of Mental Health; or Provided by the [facility] Office for People With Developmental Disabilities. If such information is present, then the following [facility] mandated warning applies: This information has [...] law may result in a fine or assisted sentence or both. A general authorization for the release of medical or other information is NOT sufficient authorization for further disc losure. Allergies and Adverse Reactions Type Description Substance Reaction Status Data Source(s ) aspirin Aspirin Aspirin Hives Active eCW1 ([facility]) Nickel Nickel Nickel Hives Active eCW1 ([facility]) Encounters Encounter Providers Location Date Indications Data Source(s ) Unknown [address] [facility] [place] [address] 03/19/2020 12:00:00 AM EST eCW1 ([facility]) [place] [address] [facility] [facility] [address] 03/14/2020 12:00:00 AM EST eCW1 ([facility]) [place] [address] [facility] [address] 03/11/2020 12:00:00 AM EST eCW1 ([facility]) [place] [address] [facility] [address] 03/05/2020 12:00:00 AM EST eCW1 ([facility]) [place] [address] [facility] [address] 03/04/2020 12:00:00 AM EST eCW1 ([facility]) [place] [address] [facility] [address] 03/04/2020 12:00:00 AM EST eCW1 ([facility]) [place] [address] [facility] [address] 02/27/2020 12:00:00 AM EST eCW1 ([facility]) [place] [address] [facility] [address] 02/21/2020 12:00:00 AM EST eCW1 ([facility]) [place] [address] [facility] [address] 02/21/2020 12:00:00 AM EST eCW1 ([facility]) [place] [address] [facility] [address] 02/14/2020 12:00:00 AM EST eCW1 ([facility]) [place] [address] [facility] [address] 02/02/2020 12:00:00 AM EST eCW1 ([facility]) Outpatient Referrer: Jasiel [email or web address] 04/2019 12:00:00 AM EST - 01/25/2020 08:49:11 AM EST [facility] Unknown [address] [facility] [address] 01/24/2020 12:00:00 AM EST eCW1 ([facility]) Outpatient Attender: Briana Hawk/Víctor/Garrison/Chandler ndl 01/11/2020 01:30:00 PM EST MEDENT ([facility]) Outpatient Attender: Briana Hawk/Víctor/Garrison/Chandler ndl 01/03/2020 12:30:00 PM EST MEDENT ([facility]) Unknown [address] [facility], [facility] [address] 01/02/2020 12:00:00 AM EST eCW1 ([facility]) Outpatient Admitter: Briana Hughes MDReferrer: Briana palafox MD 12/27/2019 12:00:00 AM EST Malignant neoplasm of unspecified part o f unspecified bronchus or lung [facility] Malignant neoplasm of unspecified part o f unspecified bronchus or lung Unknown [address] [facility] [address] 12/26/2019 12:00:00 AM EST eCW1 ([facility]) Unknown [address] [facility] [address] 12/22/2019 12:00:00 AM EDT eCW1 ([facility]) Unknown [address] [facility] [address] 12/20/2019 12:00:00 AM EDT eCW1 ([facility]) Unknown [address] [facility] [place] [address] 12/15/2019 12:00:00 AM EDT eCW1 ([facility]) Outpatient Attender: Jasiel Dela Cruz MD SJP.[email or web address].[email or web address] 11/23 12:00:00 AM EDT - 12/13/2019 11:05:43 AM EDT [facility] Outpatient Attender: Briana Hawk/Víctor/Garrison/Chandler ndl 12/07/2019 09:30:00 AM EDT MEDENT ([facility]) Office Visit, Est Pt., Level 3 PC [address] [place] [address] 12/06/2019 12:00:00 AM EDT eCW1 ([facility]) [place] [address] [facility] [address] 12/06/2019 12:00:00 AM EDT eCW1 ([facility]) Office Visit, Est Pt., Level [address] [place] [address] 11/27/2019 12:00:00 AM EDT eCW1 ([facility]) Unknown [address] [facility] [address] 11/23/2019 12:00:00 AM EDT eCW1 ([facility]) Outpatient Attender: Carmen ALVARENGA Main office - [facility] 10/04/2019 08:15:00 AM EDT MEDENT ([facility], ) Unknown [address] [facility] [place] [address] 08/04/2019 12:00:00 AM EDT eCW1 ([facility]) Outpatient<td ID="encounterTypeDescripti onID0">1 Year Follow-Up</td><td>Alice De Jesus DO</td><td>Bebeto Valdivia MD [facility]</td><td>07/28/2019</td><td><content ID="encounterDiagnosisID0-0">Diabetes Mellitus Type 2 Without Complication</content>, <content ID="encounterDiagnosisID0-1">Dry Eye Syndrome</content>, <content ID="encounterDiagnosisID0-2">Pseudophakia</content>, <content ID="encounterDiagnosisID0-3">Assessment of Taking Medication For Diabetes Long- term Use of Oral Hypoglycemics</content>, <content ID="encounterDiagnosisID0- 4">Vitreous Disorders Degeneration</content></td> Attender: ALICE Vazquez MD [facility] 07/28/2019 07:20:00 AM EDT - 07/28/2019 07:47:00 AM EDT PseudophakiaVitreous Disorders Degenerat ionAssessment of Taking Medication For Diabetes Long-term Use of Oral HypoglycemicsDry Eye SyndromeDiabetes Mellitus Type 2 Without Complication [facility] (Bebeto Mcfadden MD [facility]) Pseudophakia Vitreous Disorders Degeneration Assessment of Taking Medication For Diab etes Long-term Use of Oral Hypoglycemics Dry Eye Syndrome Diabetes Mellitus Type 2 Without Complic ation Outpatient [address] [facility] [place] [address] 07/20/2019 12:00:00 AM EDT eCW1 ([facility]) [facility] [address] [place] [address] [place] [address] 07/18/2019 12:00:00 AM EDT eCW1 ([facility]) [address] [place] [address] 07/10/2019 12:00:00 AM EDT eCW1 ([facility]) [address] [place] [address] 07/10/2019 12:00:00 AM EDT eCW1 ([facility]) [address] [place] [address] 07/10/2019 12:00:00 AM EDT eCW1 ([facility]) Outpatient Attender: Carmen ALVARENGA [facility] 06/27/2019 09:15:00 AM EDT MEDENT ([facility]) [address] [place] [address] 05/18/2019 12:00:00 AM EDT eCW1 ([facility]) Outpatient 05/09/2019 11:06:00 AM EDT [facility] [address] [place] [address] 03/24/2019 12:00:00 AM EST eCW1 ([facility]) Outpatient Attender: Carmen ALVARENGA [facility] 03/23/2019 10:00:00 AM EST MEDENT ([facility]) [address] [place] [address] 02/23/2019 12:00:00 AM EST eCW1 ([facility]) [facility] [address] [facility] [address] 02/07/2019 12:00:00 AM EST eCW1 ([facility]) Outpatient Attender: Carmen ALVARENGA Main office - [facility] 02/03/2019 07:45:00 AM EST MEDENT ([facility], ) Immunizations Vaccine Date Status Description Data Source(s) New in 2011. IIV4 11/29/2019 02:34:00 PM EDT completed MEDENT ([facility], ) influenza, recombinant, quadrIvalent,injectable, prese rvative free 11/27/2019 01:05:00 PM EDT completed eCW1 ([facility]) influenza, recombinant, quadrIvalent,injectable, prese rvative free 11/27/2019 01:05:00 PM EDT completed eCW1 ([facility]) influenza, recombinant, quadrIvalent,injectable, prese rvative free 11/27/2019 01:05:00 PM EDT completed eCW1 ([facility]) influenza, recombinant, quadrIvalent,injectable, prese rvative free 11/27/2019 01:05:00 PM EDT completed eCW1 ([facility]) influenza, recombinant, quadrIvalent,injectable, prese rvative free 11/27/2019 01:05:00 PM EDT completed eCW1 ([facility]) influenza, recombinant, quadrIvalent,injectable, prese rvative free 11/27/2019 01:05:00 PM EDT completed eCW1 ([facility]) influenza, recombinant, quadrIvalent,injectable, prese rvative free 11/27/2019 01:05:00 PM EDT completed eCW1 ([facility]) influenza, recombinant, quadrIvalent,injectable, prese rvative free 11/27/2019 01:05:00 PM EDT completed eCW1 ([facility]) influenza, recombinant, quadrIvalent,injectable, prese rvative free 11/27/2019 01:05:00 PM EDT completed eCW1 ([facility]) influenza, recombinant, quadrIvalent,injectable, prese rvative free 11/27/2019 01:05:00 PM EDT completed eCW1 ([facility]) influenza, recombinant, quadrIvalent,injectable, prese rvative free 11/27/2019 01:05:00 PM EDT completed eCW1 ([facility]) influenza, recombinant, quadrIvalent,injectable, prese rvative free 11/27/2019 01:05:00 PM EDT completed eCW1 ([facility]) influenza, recombinant, quadrIvalent,injectable, prese rvative free 11/27/2019 01:05:00 PM EDT completed eCW1 ([facility]) influenza, recombinant, quadrIvalent,injectable, prese rvative free 11/27/2019 01:05:00 PM EDT completed eCW1 ([facility]) influenza, recombinant, quadrIvalent,injectable, prese rvative free 11/27/2019 01:05:00 PM EDT completed eCW1 ([facility]) influenza, recombinant, quadrIvalent,injectable, prese rvative free 11/27/2019 01:05:00 PM EDT completed eCW1 ([facility]) influenza, recombinant, quadrIvalent,injectable, prese rvative free 11/27/2019 01:05:00 PM EDT completed eCW1 ([facility]) influenza, recombinant, quadrIvalent,injectable, prese rvative free 11/27/2019 01:05:00 PM EDT completed eCW1 ([facility]) influenza, recombinant, quadrIvalent,injectable, prese rvative free 11/27/2019 01:05:00 PM EDT completed eCW1 ([facility]) influenza, recombinant, quadrIvalent,injectable, prese rvative free 11/27/2019 01:05:00 PM EDT completed eCW1 ([facility]) Medications Medication Brand Name Start Date Product Form Dose Route Admi nistrative Instructions Pharmacy Instructions Status Indications Reaction Description Data Source(s) Furosemide 40 MG Oral Tablet Furosemide 40 MG 03/14/2020 12:00:00 A M EST 1.0 {tablet} active Furosemide 40 MG eCW1 ( [facility]) Furosemide 40 MG Oral Tablet Furosemide 40 MG 03/14/2020 12:00:00 A M EST 1.0 {tablet} active Furosemide 40 MG eCW1 ( [facility]) Acetaminophen 325 MG / Hydrocodone Mariaelena trate 5 MG Oral Tablet Hydrocodone- Acetaminophen 5-325 MG Hydrocodone-Acetaminophen 5-325 MG 02/02/2020 12:00:00 AM EST 1.0 {tablet_as_needed} active Hydrocodone-Acetaminophen 5-325 MG eCW1 ([facility]) Acetaminophen 325 MG / Hydrocodone Mariaelena trate 5 MG Oral Tablet Hydrocodone- Acetaminophen 5-325 MG Hydrocodone-Acetaminophen 5-325 MG 02/02/2020 12:00:00 AM EST 1.0 {tablet_as_needed} active Hydrocodone-Acetaminophen 5-325 MG eCW1 ([facility]) Acetaminophen 325 MG / Hydrocodone Mariaelena trate 5 MG Oral Tablet Hydrocodone- Acetaminophen 5-325 MG Hydrocodone-Acetaminophen 5-325 MG 02/02/2020 12:00:00 AM EST 1.0 {tablet_as_needed} active Hydrocodone-Acetaminophen 5-325 MG eCW1 ([facility]) Acetaminophen 325 MG / Hydrocodone Mariaelena trate 5 MG Oral Tablet Hydrocodone- Acetaminophen 5-325 MG Hydrocodone-Acetaminophen 5-325 MG 02/02/2020 12:00:00 AM EST 1.0 {tablet_as_needed} active Hydrocodone-Acetaminophen 5-325 MG eCW1 ([facility]) Acetaminophen 325 MG / Hydrocodone Mariaelena trate 5 MG Oral Tablet Hydrocodone- Acetaminophen 5-325 MG Hydrocodone-Acetaminophen 5-325 MG 02/02/2020 12:00:00 AM EST 1.0 {tablet_as_needed} active Hydrocodone-Acetaminophen 5-325 MG eCW1 ([facility]) Acetaminophen 325 MG / Hydrocodone Mariaelena trate 5 MG Oral Tablet Hydrocodone- Acetaminophen 5-325 MG Hydrocodone-Acetaminophen 5-325 MG 02/02/2020 12:00:00 AM EST 1.0 {tablet_as_needed} active Hydrocodone-Acetaminophen 5-325 MG eCW1 ([facility]) Acetaminophen 325 MG / Hydrocodone Mariaelena trate 5 MG Oral Tablet Hydrocodone- Acetaminophen 5-325 MG Hydrocodone-Acetaminophen 5-325 MG 02/02/2020 12:00:00 AM EST 1.0 {tablet_as_needed} active Hydrocodone-Acetaminophen 5-325 MG eCW1 ([facility]) Acetaminophen 325 MG / Hydrocodone Mariaelena trate 5 MG Oral Tablet Hydrocodone- Acetaminophen 5-325 MG Hydrocodone-Acetaminophen 5-325 MG 02/02/2020 12:00:00 AM EST 1.0 {tablet_as_needed} active Hydrocodone-Acetaminophen 5-325 MG eCW1 ([facility]) Acetaminophen 325 MG / Hydrocodone Mariaelena trate 5 MG Oral Tablet Hydrocodone- Acetaminophen 5-325 MG Hydrocodone-Acetaminophen 5-325 MG 02/02/2020 12:00:00 AM EST 1.0 {tablet_as_needed} active Hydrocodone-Acetaminophen 5-325 MG eCW1 ([facility]) Acetaminophen 325 MG / Hydrocodone Mariaelena trate 5 MG Oral Tablet Hydrocodone- Acetaminophen 5-325 MG Hydrocodone-Acetaminophen 5-325 MG 02/02/2020 12:00:00 AM EST 1.0 {tablet_as_needed} active Hydrocodone-Acetaminophen 5-325 MG eCW1 ([facility]) Acetaminophen 325 MG / Hydrocodone Mariaelena trate 5 MG Oral Tablet Hydrocodone- Acetaminophen 5-325 MG Hydrocodone-Acetaminophen 5-325 MG 02/02/2020 12:00:00 AM EST 1.0 {tablet_as_needed} active Hydrocodone-Acetaminophen 5-325 MG eCW1 ([facility]) Furosemide 20 MG Oral Tablet Furosemide 01/23/2020 12:00:00 AM EST ORAL active MEDENT ([facility], ) Acetaminophen 325 MG / Hydrocodone Bitartrate 5 MG Ora l Tablet Hydrocodone-Acetaminophen 01/11/2020 12:00:00 AM EST ORAL active MEDENT ([facility], ) Acetaminophen 325 MG / Hydrocodone Mariaelena trate 5 MG Oral Tablet Hydrocodone- Acetaminophen 5-325 MG Hydrocodone-Acetaminophen 5-325 MG 01/02/2020 12:00:00 AM EST 1.0 {tablet_as_needed} active Hydrocodone-Acetaminophen 5-325 MG eCW1 ([facility]) Acetaminophen 325 MG / Hydrocodone Mariaelena trate 5 MG Oral Tablet Hydrocodone- Acetaminophen 5-325 MG Hydrocodone-Acetaminophen 5-325 MG 01/02/2020 12:00:00 AM EST 1.0 {tablet_as_needed} active Hydrocodone-Acetaminophen 5-325 MG eCW1 ([facility]) Acetaminophen 325 MG / Hydrocodone Mariaelena trate 5 MG Oral Tablet Hydrocodone- Acetaminophen 5-325 MG Hydrocodone-Acetaminophen 5-325 MG 12/15/2019 12:00:00 AM EDT 1.0 {tablet_as_needed} active Hydrocodone-Acetaminophen 5-325 MG eCW1 ([facility]) Acetaminophen 325 MG / Hydrocodone Mariaelena trate 5 MG Oral Tablet Hydrocodone- Acetaminophen 5-325 MG Hydrocodone-Acetaminophen 5-325 MG 12/15/2019 12:00:00 AM EDT 1.0 {tablet_as_needed} active Hydrocodone-Acetaminophen 5-325 MG eCW1 ([facility]) Acetaminophen 325 MG / Hydrocodone Mariaelena trate 5 MG Oral Tablet Hydrocodone- Acetaminophen 5-325 MG Hydrocodone-Acetaminophen 5-325 MG 12/15/2019 12:00:00 AM EDT 1.0 {tablet_as_needed} active Hydrocodone-Acetaminophen 5-325 MG eCW1 ([facility]) Acetaminophen 325 MG / Hydrocodone Mariaelena trate 5 MG Oral Tablet Hydrocodone- Acetaminophen 5-325 MG Hydrocodone-Acetaminophen 5-325 MG 12/15/2019 12:00:00 AM EDT 1.0 {tablet_as_needed} active Hydrocodone-Acetaminophen 5-325 MG eCW1 ([facility]) 30 ACTUAT fluticasone furoate 0.1 MG/ACT UAT / vilanterol 0.025 MG/ACTUAT Dry Powder Inhaler [Breo] Breo Ellipta 12/07/2019 12:00:00 AM EDT active MEDENT ([facility]) Prednisone 20 MG Oral Tablet PredniSONE 20 MG PredniSONE 20 MG 11/27/2019 12:00:00 AM EDT 1.0 {tablet} active Pr edniSONE 20 MG eCW1 ([facility]) Prednisone 20 MG Oral Tablet PredniSONE 20 MG PredniSONE 20 MG 11/27/2019 12:00:00 AM EDT 1.0 {tablet} active Pr edniSONE 20 MG eCW1 ([facility]) Prednisone 20 MG Oral Tablet PredniSONE 20 MG PredniSONE 20 MG 11/27/2019 12:00:00 AM EDT 1.0 {tablet} active Pr edniSONE 20 MG eCW1 ([facility]) Prednisone 20 MG Oral Tablet PredniSONE 20 MG PredniSONE 20 MG 11/27/2019 12:00:00 AM EDT 1.0 {tablet} active Pr edniSONE 20 MG eCW1 ([facility]) Albuterol Sulfate 108 (90 Base) MCG/ACT UNK 11/27/2019 12: 00:00 AM EDT 1.0 {puff_as_needed} active Albuterol Sulfa te 108 (90 Base) MCG/ACT eCW1 ([facility]) Prednisone 20 MG Oral Tablet PredniSONE 20 MG PredniSONE 20 MG 11/27/2019 12:00:00 AM EDT 1.0 {tablet} active Pr edniSONE 20 MG eCW1 ([facility]) Albuterol Sulfate 108 (90 Base) MCG/ACT UNK 11/27/2019 12: 00:00 AM EDT 1.0 {puff_as_needed} active Albuterol Sulfa te 108 (90 Base) MCG/ACT eCW1 ([facility]) Albuterol Sulfate 108 (90 Base) MCG/ACT UNK 11/27/2019 12: 00:00 AM EDT 1.0 {puff_as_needed} active Albuterol Sulfa te 108 (90 Base) MCG/ACT eCW1 ([facility]) Prednisone 20 MG Oral Tablet PredniSONE 20 MG PredniSONE 20 MG 11/27/2019 12:00:00 AM EDT 1.0 {tablet} active Pr edniSONE 20 MG eCW1 ([facility]) Albuterol Sulfate 108 (90 Base) MCG/ACT UNK 11/27/2019 12: 00:00 AM EDT 1.0 {puff_as_needed} active Albuterol Sulfa te 108 (90 Base) MCG/ACT eCW1 ([facility]) Prednisone 20 MG Oral Tablet PredniSONE 20 MG PredniSONE 20 MG 11/27/2019 12:00:00 AM EDT 1.0 {tablet} active Pr edniSONE 20 MG eCW1 ([facility]) Prednisone 20 MG Oral Tablet PredniSONE 20 MG PredniSONE 20 MG 11/27/2019 12:00:00 AM EDT 1.0 {tablet} active Pr edniSONE 20 MG eCW1 ([facility]) Albuterol Sulfate 108 (90 Base) MCG/ACT UNK 11/27/2019 12: 00:00 AM EDT 1.0 {puff_as_needed} active Albuterol Sulfa te 108 (90 Base) MCG/ACT eCW1 ([facility]) Prednisone 20 MG Oral Tablet PredniSONE 20 MG PredniSONE 20 MG 11/27/2019 12:00:00 AM EDT 1.0 {tablet} active Pr edniSONE 20 MG eCW1 ([facility]) Prednisone 20 MG Oral Tablet PredniSONE 20 MG PredniSONE 20 MG 11/27/2019 12:00:00 AM EDT 1.0 {tablet} active Pr edniSONE 20 MG eCW1 ([facility]) Prednisone 20 MG Oral Tablet PredniSONE 20 MG PredniSONE 20 MG 11/27/2019 12:00:00 AM EDT 1.0 {tablet} active Pr edniSONE 20 MG eCW1 ([facility]) Albuterol Sulfate 108 (90 Base) MCG/ACT UNK 11/27/2019 12: 00:00 AM EDT 1.0 {puff_as_needed} active Albuterol Sulfa te 108 (90 Base) MCG/ACT eCW1 ([facility]) Albuterol Sulfate 108 (90 Base) MCG/ACT UNK 11/27/2019 12: 00:00 AM EDT 1.0 {puff_as_needed} active Albuterol Sulfa te 108 (90 Base) MCG/ACT eCW1 ([facility]) Prednisone 20 MG Oral Tablet PredniSONE 20 MG PredniSONE 20 MG 11/27/2019 12:00:00 AM EDT 1.0 {tablet} active Pr edniSONE 20 MG eCW1 ([facility]) Prednisone 20 MG Oral Tablet PredniSONE 20 MG PredniSONE 20 MG 11/27/2019 12:00:00 AM EDT 1.0 {tablet} active Pr edniSONE 20 MG eCW1 ([facility]) Albuterol Sulfate 108 (90 Base) MCG/ACT UNK 11/27/2019 12: 00:00 AM EDT 1.0 {puff_as_needed} active Albuterol Sulfa te 108 (90 Base) MCG/ACT eCW1 ([facility]) Albuterol Sulfate 108 (90 Base) MCG/ACT UNK 11/27/2019 12: 00:00 AM EDT 1.0 {puff_as_needed} active Albuterol Sulfa te 108 (90 Base) MCG/ACT eCW1 ([facility]) Prednisone 20 MG Oral Tablet PredniSONE 20 MG PredniSONE 20 MG 11/27/2019 12:00:00 AM EDT 1.0 {tablet} active Pr edniSONE 20 MG eCW1 ([facility]) Prednisone 20 MG Oral Tablet PredniSONE 20 MG PredniSONE 20 MG 11/27/2019 12:00:00 AM EDT 1.0 {tablet} active Pr edniSONE 20 MG eCW1 ([facility]) Prednisone 20 MG Oral Tablet PredniSONE 20 MG PredniSONE 20 MG 11/27/2019 12:00:00 AM EDT 1.0 {tablet} active Pr edniSONE 20 MG eCW1 ([facility]) Albuterol Sulfate 108 (90 Base) MCG/ACT UNK 11/27/2019 12: 00:00 AM EDT 1.0 {puff_as_needed} active Albuterol Sulfa te 108 (90 Base) MCG/ACT eCW1 ([facility]) Prednisone 20 MG Oral Tablet PredniSONE 20 MG PredniSONE 20 MG 11/27/2019 12:00:00 AM EDT 1.0 {tablet} active Pr edniSONE 20 MG eCW1 ([facility]) Prednisone 20 MG Oral Tablet PredniSONE 20 MG PredniSONE 20 MG 11/27/2019 12:00:00 AM EDT 1.0 {tablet} active Pr edniSONE 20 MG eCW1 ([facility]) gabapentin 100 MG Oral Capsule Gabapentin 02/03/2019 12:00:00 AM EST ORAL active MEDENT ([facility]) prednisolone acetate 10 MG/ML Ophthalmic Suspension [Pred Forte] Pred Forte 1% Ophthalmic Suspension Pred Forte 1% Ophthalmic Suspension 06/03/2018 12:00:0 0 AM EDT aborted predniso lone acetate 10 MG/ML Ophthalmic Suspension [Pred Forte] [facility] (Bebeto Mcfadden [facility]) besifloxacin 6 MG/ML Ophthalmic Suspensi on [Besivance] Besivance 0.6% Ophthalmic Suspension Besivance 0.6% Ophthalmic Suspension 06/03/2018 12:00:00 AM EDT aborted besifloxacin 6 MG/ML Ophthalmic Suspension [Besivance] [facility] (Bebeto Mcfadden MD [facility]) BromSite 0.075% Ophthalmic Solution BromSite 0.075% Ophthalm ic Solution 06/03/2018 12:00:00 AM EDT aborted bromfenac 0.75 MG/ML Ophthalmic Solution [Bromsite] [facility] (Bebeto Mcfadden [facility]) Insurance Providers Payer name Policy type / Coverage type Policy ID Covered alliance party ID Covered alliance party's relationship to toscano Policy [place] Plan Information MEDICARE COMPLETE [id number] SP [id number] MEDICARE COMPLETE-[facility] [id number] S [id number] [facility] [id number] UHC UNITED MEDICARE COMPLETE G [id number] Self [id number] [facility] [id number] Self [id number] MEDICARE COMPLETE [id number] SP [id number] [facility] MEDICAID [id number] Chelita [id number] MEDICARE COMPLETE [id number] SP [id number] MEDICARE COMPLETE [id number] SP [id number] ANSI-Medicare Part B [id number] ANSI-Medicare Part B [id number] Medicare Solutions Commercial [id number] Self [id number] ANSI-Medicare Part B [id number] ANSI-Medicare Part B [id number] ANSI-Medicare Part B [id number] ANSI-Medicare Part B [id number] ANSI-Medicare Part B [id number] ANSI-Medicare Part B [id number] ANSI-Medicare Part B [id number] ANSI-Medicare Part B [id number] ANSI-Medicare Part B [id number] MEDICARE COMPLETE [id number] Problems, Conditions, and Diagnoses Code Display Name Description Problem Type Effective Dates Data Source(s) F43.21 [id number] Situational depression Problem 03/05/2020 12 :00:00 AM EST eCW1 ([facility]) F32.9 [id number] Reactive depression (situational) Problem 03/05/2020 12:00:00 AM EST eCW1 ([facility]) G89.3 [id number] Pain, cancer Problem 12/15/2019 12:00:00 AM EDT eCW1 ([facility]) J84.9 [id number] Interstitial lung disease Problem 11/28/2019 12:00:00 AM EDT eCW1 ([facility]) K21.9 Gastroesophageal reflux disease Gastroesophageal reflu x disease Problem 11/27/2019 12:00:00 AM EDT eCW1 ([facility]) G89.29 [id number] Other chronic pain Problem 07/20/2019 12:00: 00 AM EDT eCW1 ([facility]) E78.2 [id number] Mixed hyperlipidemia Problem 07/19/2019 12:0 0:00 AM EDT eCW1 ([facility]) I10 Essential hypertension Essential (primary) hypertensio n Problem 03/24/2019 12:00:00 AM EST eCW1 ([facility]) I10 Essential hypertension Essential (primary) hypertensio n Problem 03/24/2019 12:00:00 AM EST eCW1 ([facility]) I06.0 Rheumatic aortic stenosis Rheumatic aortic stenosis Di agnosis 01/25/2020 07:57:[address] [facility] Z01.810 Encounter for preprocedural cardiovascul ar examination Encounter for preprocedural cardiovascul Diagnosis 01/25/2020 07:57:25 AM EST [facility] C34.90 Malignant neoplasm of unspecified part o f unspecified bronchus or lung Malignant neoplasm of unspecified part of unspecified bronchus or lung Diagnosis 12/27/2019 02:06:00 PM [facility] Surgeries/Procedures Procedure Description Date Indications Data Source(s) Bronchoscopy W/Brushing Or Protected Brushings 020 12:00:00 AM EST [facility] ([facility], ) Bronchoscopy W/Bronchial Alveolar Lavage 12/27/2019 12 :00:00 AM EST [facility] ([facility], ) Bronchoscopy W/Transbronchial Lung Biopsy 12/27/2019 1 2:00:00 AM EST [facility] ([facility], ) With Endobronchial Ultrasound Guided 12/27/2019 12:00: 00 AM EST [facility] ([facility], ) Spirometry 12/07/2019 12:00:00 AM EDT M EDENT ([facility], ) Aerosol Or Vapor Inhalations 12/07/2019 12:00:00 AM ED T MED[facility] ([facility], ) Immunization: Flublok Quadrivalent (18 years & older) 0.5mL IM (Influenza) 11/27/2019 12:00:00 AM EDT [facility] History of the retina was normal 07/08/2018 History of the retina was normal 07/08/2018 07/28/2019 12:00:00 AM EDT WES ([facility]) Currently wearing eyeglasses Currently wearing eyeglasses 12:00:00 AM EDT WES ([facility]) History of diabetes mellitus Dx: around , A1c: 7.2 with Denise Soosairasamaria [employer] , FBS: 114 this morning History of diabetes mellitus Dx: around , A1c: 7.2 with Denise Soosairaj [employer] , FBS: 114 this morning 07/28/2019 12:00:00 AM EDT WES ([facility] liu [facility]) Intermediate Eye Exam Established Patient Intermediate Eye Exam Established Patient 07/28/2019 12:00:00 AM EDT W[facility] ([facility]) History of extracapsular cataract extrac tion PCIOL OS 05/26/[address] De Jesus ~PCIOL OD 06/16/[address] De Jesus History of extracapsular cataract extraction PCIOL OS 05/26/[address] De Jesus ~PCIOL OD 06/16/[address] De Jesus 05/22/2019 12:00:00 AM EDT WES ([facility]) History of diabetes mellitus Dx: around , A 1c: 7.8, FBS: 160 History of diabetes mellitus Dx: around , A1c: 7.8, FBS: 160 05/22/2019 12:00:00 AM EDT W[facility] ([facility]) History of extracapsular cataract extrac tion PCIOL OS 05/26/[address] De Jesus ~PCIOL OD 06/16/[address] De Jesus History of extracapsular cataract extraction PCIOL OS 05/26/[address] De Jesus ~PCIOL OD 06/16/[address] De Jesus 05/22/2019 12:00:00 AM EDT WES ([facility]) History of extracapsular cataract extrac tion PCIOL OS 05/26/[address] De Jesus History of extracapsular cataract extrac tion PCIOL OS 05/26/[address] De Jesus 05/22/2019 12:00:00 AM EDT WES ([facility]) History of diabetes mellitus Dx: around , A 1c: 7.8, FBS: 160 History of diabetes mellitus Dx: around , A1c: 7.8, FBS: 160 05/22/2019 12:00:00 AM EDT W[facility] ([facility]) History of extracapsular cataract extrac tion PCIOL OS 05/26/[address] De Jesus ~PCIOL OD 06/16/[address] De Jesus History of extracapsular cataract extraction PCIOL OS 05/26/[address] De Jesus ~PCIOL OD 06/16/[address] De Jesus 05/22/2019 12:00:00 AM EDT WES ([facility]) Surgical / procedural history 1985, Broken left wrist 1996, Right knee replacement 2014 Surgical / procedural history 1985, Broken left wrist 1996, Right knee replacement 201405/12/2019 12:00:00 AM EDT WES ([facility]) History of diabetes mellitus Dx: around , A 1c: 7.8, FBS: 160 History of diabetes mellitus Dx: around , A1c: 7.8, FBS: 160 05/12/2019 12:00:00 AM EDT WES ([facility]) Surgical / procedural history 1985, Broken left wrist 1996, Right knee replacement 2014 Surgical / procedural history 1985, Broken left wrist 1996, Right knee replacement 201405/12/2019 12:00:00 AM EDT WES ([facility]) No recent change in medical history No recent change in medi leticia history 05/12/2019 12:00:00 AM EDT W[facility] ([facility]) History of diabetes mellitus Dx: around , A1 c: 7.8, FBS: 160 History of diabetes mellitus Dx: around , A1c: 7.8, FBS: 160 05/12/2019 12:00:00 AM EDT WES ([facility]) Surgical / procedural history 1985, Broken left wrist 1996, Right knee replacement 2014 Surgical / procedural history 1985, Broken left wrist 1996, Right knee replacement 201405/12/2019 12:00:00 AM EDT W[facility] ([facility]) History of extracapsular cataract extraction OS [address] De Jesus History of extracapsular cataract extraction OS 05/26/[address] De Jesus 05/12/2019 12:00:00 AM EDT W[facility] ([facility]) History of diabetes mellitus Dx: around , A1 c: 7.8, FBS: 160 History of diabetes mellitus Dx: around , A1c: 7.8, FBS: 160 05/12/2019 12:00:00 AM EDT WES ([facility]) Recent change in medical history Cataract surgery OS 05/26/[address] De Jesus Recent change in medical history Cataract surgery OS 05/26/[address] De Jesus 05/12/2019 12:00:00 AM EDT WES ([facility]) Surgical / procedural history 1985, Broken left wrist 1996, Right knee replacement 2014 Surgical / procedural history 1985, Broken left wrist 1996, Right knee replacement 201405/12/2019 12:00:00 AM EDT WES ([facility]) History of diabetes mellitus Dx: around , A1 c: 7.8, FBS: 160 History of diabetes mellitus Dx: around , A1c: 7.8, FBS: 160 05/12/2019 12:00:00 AM EDT WES ([facility]) Surgical / procedural history 1985, Broken left wrist 1996, Right knee replacement 2014 Surgical / procedural history 1985, Broken left wrist 1996, Right knee replacement 201405/12/2019 12:00:00 AM EDT WES ([facility]) History of diabetes mellitus Dx: around , A1c: 7.8, FBS: yesterday was around 160 History of diabetes mellitus Dx: around , A1c: 7.8, FBS: yesterday was around 160 05/12/2019 12:00:00 AM EDT W[facility] ([facility]) Surgical / procedural history 1985, Broken left wrist 1996, Right knee replacement 2014 Surgical / procedural history 1985, Broken left wrist 1996, Right knee replacement 201405/12/2019 12:00:00 AM EDT WES ([facility]) No recent change in medical history No recent change in medi leticia history 05/12/2019 12:00:00 AM EDT WES ([facility]) Surgical / procedural history 1985, Broken left wrist 1996, Right knee replacement 2014 Surgical / procedural history 1985, Broken left wrist 1996, Right knee replacement 201405/12/2019 12:00:00 AM EDT WES ([facility]) Office Visit, Est Pt., Level 2 FC 03/24/2019 12:00:00 AM EST eCW1 ([facility]) Office Visit, Est Pt., Level 4 PC 03/24/2019 12:00:00 AM EST eCW1 ([facility]) Results ID Date Data Source [id number] 03/11/2020 01:01:00 PM EST [facility] Name Value Range Interpretation Code Description Data Madyson rce(s) Supporting Document(s) SARS coronavirus 2 RNA [Presence] in Res piratory specimen by PILY with probe detection NEGATIVE [facility] This lab was ordered by [facility] a nd reported by [facility]. ID Date Data Source [id number] 02/27/2020 03:48:00 PM EST [facility] Name Value Range Interpretation Code Description Data Madyson rce(s) Supporting Document(s) SARS-CoV-2 (COVID 19) NEGATIVE - SARS-CoV-2 (COVID19) [facility] This lab was ordered by [facility] a nd reported by [facility]. ID Date Data Source [id number] 01/27/2020 04:23:00 PM EST [facility] Name Value Range Interpretation Code Description Data Madyson rce(s) Supporting Document(s) SARS-CoV-2 (COVID 19) [facility] This lab was ordered by [facility] a nd reported by [facility]. ID Date Data Source [id number] 01/26/2020 11:40:00 AM EST [facility] ([facility]) Name Value Range Interpretation Code Description Data Madyson rce(s) Supporting Document(s) Natriuretic peptide.B prohormone N-Terminal [Mass/volu me] in Serum or Plasma 713 pg/mL Above high normal [facility] ([facility], ) ID Date Data Source [id number] 01/26/2020 11:40:00 AM [facility] ([facility]) Name Value Range Interpretation Code Description Data Madyson rce(s) Supporting Document(s) Glucose, Fasting 142 mg/dL 70-100 Above high normal M EDENT ([facility]) Blood Urea Nitrogen 15 mg/dL 7-18 Normal (applies to non-nume blaire results) [facility] ([facility]) Creatinine For GFR 0.51 mg/dL 0.55-1.30 Below low normal [facility] ([facility]) Glomerular Filtration Rate Laboratory test result Normal (applies to non- numeric results) [facility] ([facility]) <content>Units are mL/min/1.73 m2</content>
<content></content>
<content>Chronic Kidney Disease Staging per NKF:</content>
<content></content>
<content>Stage I & II GFR >=60 Normal to Mildly Decreased</content>
<content>Stage III GFR 30- 59 Moderately Decreased</content>
<content>Stage IV GFR 15-29 Severely Decreased</content>
<content>Stage V GFR <15 Very Little GFR Left</content>
<content>ESRD GFR <15 on [employer]</content>
<content></content> Potassium Serum 4.0 meq/L 3.5-5.1 Normal (applies to non-numeric results) [facility] ([facility]) Sodium Level 140 meq/L 136-145 Normal (applies to non-numeric res ults) [facility] ([facility]) Carbon Dioxide Level 33 meq/L 21-32 Above high normal [facility] ([facility]) Anion Gap 6 meq/L 8-16 Below low normal [facility] ( [facility]) Chloride Level 101 meq/L 98-107 Normal (applies to non-numeric r esults) [facility] ([facility]) Calcium Level 8.7 mg/dL 8.8-10.2 Below low normal [facility] T ([facility]) ID Date Data Source [id number] 01/09/2020 10:39:00 AM EST [facility] ([facility]) Name Value Range Interpretation Code Description Data Madyson rce(s) Supporting Document(s) Urea nitrogen [Mass/volume] in Serum or Plasma 12 mg/dL 7 -18 Normal (applies to non-numeric results) [facility] ([facility]) ID Date Data Source [id number] 01/09/2020 10:39:00 AM EST [facility] ([facility]) Name Value Range Interpretation Code Description Data Madyson rce(s) Supporting Document(s) Glomerular Filtration Rate Laboratory test result Normal (applies to non- numeric results) [facility] ([facility]) <content>Units are mL/min/1.73 m2</content>
<content></content>
<content>Chronic Kidney Disease Staging per NKF:</content>
<content></content>
<content>Stage I & II GFR >=60 Normal to Mildly Decreased</content>
<content>Stage III GFR 30- 59 Moderately Decreased</content>
<content>Stage IV GFR 15-29 Severely Decreased</content>
<content>Stage V GFR <15 Very Little GFR Left</content>
<content>ESRD GFR <15 on [employer]</content>
<content></content> Creatinine For GFR 0.47 mg/dL 0.55-1.30 Below low normal [facility] ([facility]) ID Date Data Source [id number] 01/05/2020 11:01:00 AM EST [facility]) Name Value Range Interpretation Code Description Data Madyson rce(s) Supporting Document(s) Gram Stain Laboratory test result Normal (applies to non-n umeric results) [facility] ([facility]) MANY RBCS MODERATE WBCS NO ORGANISMS SEEN Body Fluid Culture Laboratory test result [facility] ([facility]) If aerobic or anaerobic growth is detected within the next 7-21 days, an addendum will follow. . . FULL REPORT IN LAB NOTES ([facility]). NO GROWTH AEROBICALLY ID Date Data Source [id number] 01/05/2020 11:01:00 AM EST [facility] ([facility]) Name Value Range Interpretation Code Description Data Madyson rce(s) Supporting Document(s) PH Body Fluid 7.399 units Normal (applies to non-numeric r esults) [facility] ([facility]) Source, Body Fluid pH Laboratory test result Nor mal (applies to non-numeric results) [facility]) ID Date Data Source [id number] 01/05/2020 11:01:00 AM EST [facility] ([facility]) Name Value Range Interpretation Code Description Data Madyson rce(s) Supporting Document(s) Source, Body Fluid Amylase Laboratory test result Normal (applies to non- numeric results) [facility] ([facility]) Amylase, Body Fluid 14 U/L Normal (applies to non-nume blaire results) [facility]) ID Date Data Source [id number] 01/05/2020 11:01:00 AM EST [facility]) Name Value Range Interpretation Code Description Data Madyson rce(s) Supporting Document(s) Glucose, Body Fluid 120 mg/dL Normal (applies to non-nume blaire results) [facility] ([facility]) Source, Body Fluid Glucose Laboratory test result Normal (applies to non- numeric results) [facility]) ID Date Data Source [id number] 01/05/2020 11:01:00 AM EST [facility]) Name Value Range Interpretation Code Description Data Madyson rce(s) Supporting Document(s) Source, Body Fluid LDH Laboratory test result No rmal (applies to non-numeric results) [facility] ([facility]) LDH, Body Fluid 188 U/L Normal (applies to non-numeric results) [facility] ([facility]) ID Date Data Source [id number] 01/05/2020 11:01:00 AM EST [facility]) Name Value Range Interpretation Code Description Data Madyson rce(s) Supporting Document(s) Total Protein, Body Fluid 4.1 g/dL Normal (applies to no n-numeric results) [facility] ([facility]) Source, Body Fluid Tot Protein Laboratory test result Normal (applies to non- numeric results) [facility]) ID Date Data Source [id number] 01/05/2020 11:01:00 AM EST [facility]) Name Value Range Interpretation Code Description Data Madyson rce(s) Supporting Document(s) Bacteria identified in Unspecified specimen by Anaerob e culture Laboratory test result [facility]) If anaerobic or aerobic growth is detected within the next 7-21 days, an addendum will follow. . . FULL REPORT [facility] LAB NOTES ([facility] NO GROWTH ANAEROBICALLY ID Date Data Source [id number] 01/05/2020 11:01:00 AM EST [facility] ([facility]) Name Value Range Interpretation Code Description Data Madyson rce(s) Supporting Document(s) Source, Body Fluid Laboratory test result Normal (applies to non-numeric results) [facility] ([facility]) Pleural FL Color Laboratory test result Normal ( applies to non-numeric results) [facility] ([facility]) RBC Body Fluid 26 10 Normal (applies to non-numeric r esults) [facility] ([facility]) Appearance, Body Fluid Laboratory test result No rmal (applies to non-numeric results) [facility] ([facility]) WBC Body Fluid 634 /uL 0-10 Above high normal [facility] ([facility]) BF Mononuclear Cell % 94.6 % 0-0 Above high normal [facility] ([facility]) BF Polymorphonuclear Cell % 5.4 % 0-0 Above high normal [facility] ([facility]) ID Date Data Source [id number] 01/05/2020 11:01:00 AM EST [facility] ([facility]) Name Value Range Interpretation Code Description Data Madyson rce(s) Supporting Document(s) Amylase [Enzymatic activity/volume] in Body fluid Laboratory test res ult [facility] ([facility]) ID Date Data Source [id number] 01/05/2020 09:21:00 AM EST [facility] ([facility]) Name Value Range Interpretation Code Description Data Madyson rce(s) Supporting Document(s) Surgical pathology study Laboratory test result [facility] ([facility]) FINAL DIAGNOSIS Right pleural fluid, cell-block: No malignant cells identified. Inflammatory cells and mesothelial cells. TTF-1 stain used in evaluation. See specimen [id number] 01/09/2020 - 1113 CLINICAL DIAGNOSIS Right pleural effusion 01/08/2020 - 0709 GROSS DIAGNOSIS Received 400 ml of right pleural fluid for cell block. -OA 01/09/2020 - 111 Signed LILIYA WASHINGTON MD 01/09/2020 1113 ID Date Data Source [id number] 01/05/2020 09:21:00 AM EST [facility] ([facility]) Name Value Range Interpretation Code Description Data Madyson rce(s) Supporting Document(s) Microscopic observation [Identifier] in Unspecified specimen by Non- gynecological cytology method Laboratory test result [facility] ([facility]) SPECIMEN: Pleural fluid 400ml Red SPECIMEN ADEQUACY: Satisfactory for evaluation CATEGORIZATION: Rare Clusters of Atypical Cells DESCRIPTIONS: Few groups of atypical cells exhbiting irregular nuclei with prominent nucleoli, suspicious for metastatic carcinoma. COMMENTS: Clinical correlation is recommended. 01/09/2020 - [address](ASCP) 01/08/2020 0739 (Prelim) Signed LILIYA WASHINGTON MD 01/09/2020 112 ID Date Data Source [id number] 12/27/2019 02:30:00 PM EST [facility] ([facility]) Name Value Range Interpretation Code Description Data Madyson rce(s) Supporting Document(s) Surgical pathology study Laboratory test result [facility] ([facility]) Anatomic Molecular Pathology Report Name: OPAL VALENZUELA Collection Date: 12/27/2019 00:00 Received Date: 12/29/2019 14:28 Physician(s): BRIANA HUGHES MD Haghir, Shahandeh MD Copy To: BRIANA HUGHES MD Specimen(s) Received A: Right lung, lower lobe, Formalin Block [id number] received from [facility] in [place], [place] ROS1 by FISH Diagnosis TEST: ROS1 [...] with better response to treatment with crizotinib. yadielj/kg Electronically Signed By Chelly Sena MD, PhD [...] its performance characteristics were determined by the [facility], and it has been authorized for clinical use by [facility]. The test has not been cleared or approved by the U.S. Food and Drug Administration. The analyte specific reagents used in this assay do not require FDA approval. Processed at [facility], [address] [place] [address] and reported at [facility], [address] [place] [address]. REFERENCES: 1. ALEM Che, Ava AT, Elba GALVAN et al. Identifying and Targeting ROS1 Gene Fusions in NonSmall Cell Lung Cancer. Clin Cancer Res 2012; 18(17); 64957031. 2. Carlin, [place] AT. Novel Targets i n Non-Small Cell Lung Cancer: ROS-1 and RET fusions. The Oncologist. 2013;18:865-875. This report may include one or more immunohistochemical stain results that use analyte specific reagents. All positive and negative controls have been reviewed by the attending pathologist and are satisfactory. The tests were developed and their performance characteristics determined by [facility] Pathology department. They have not been cleared or approved by the US Food and Drug Administration. The FDA has determined that such clearance or approval is not necessary. ID Date Data Source [id number] 12/27/2019 09:12:00 AM EST [facility] ([facility]) Name Value Range Interpretation Code Description Data Madyson rce(s) Supporting Document(s) Microscopic observation [Identifier] in Unspecified specimen by Non- gynecological cytology method Laboratory test result [facility] ([facility]) will discuss at follow-up ID Date Data Source [id number] 12/27/2019 09:04:00 AM EST [facility] ([facility]) Name Value Range Interpretation Code Description Data Madyson rce(s) Supporting Document(s) Glucose [Mass/volume] in Capillary blood by Glucometer 176 mg/dL 83-110 Above high normal [facility] ([facility]) Doctor Notified ID Date Data Source [id number] 12/27/2019 08:52:00 AM EST [facility] ([facility]) Name Value Range Interpretation Code Description Data Madyson rce(s) Supporting Document(s) Microscopic observation [Identifier] in Unspecified specimen by Non- gynecological cytology method Laboratory test result [facility] ([facility]) SPECIMEN: Bronchial brushing (right lower lobe) [place] in vial and prepared slides received SPECIMEN ADEQUACY: Satisfactory for evaluation CATEGORIZATION: Positive for Malignancy DESCRIPTIONS: Small groups and single malignant cells noted exhibiting nuclei of varying size with multiple prominent nucleoli. The background consists of scattered lymphocytes and blood. COMMENTS: See also report [id number] 4/TR 12/28/2019914 Signed FIORELLA ERNANDEZ(ASCP) 12/28/2019 0752 (Prelim) Signed Isabella Mckeon MD 12/28/2019914 ID Date Data Source [id number] 12/27/2019 08:51:00 AM EST [facility] ([facility]) Name Value Range Interpretation Code Description Data Madyson rce(s) Supporting Document(s) Microscopic observation [Identifier] in Unspecified specimen by Non- gynecological cytology method Laboratory test result [facility] ([facility]) SPECIMEN: FNA Subcarinal lymp h node Cytolyt and prepared slides received SPECIMEN ADEQUACY: Satisfactory for evaluation CATEGORIZATION: Positive for Malignancy DESCRIPTIONS: Specimen consists of groups and single malignant cells exhibiting variation in nuclear size and prominent multiple nucleoli. COMMENTS: Findings are consistent with metastatic NSCLC, see also report [id number] 4/TR 12/28/2019913 Signed FIORELLA ERNANDEZ CT(ASCP) 12/28/2019 0702 (Prelim) Signed Isabella Mckeon MD 12/28/2019913 ID Date Data Source [id number] 12/27/2019 08:38:00 AM EST [facility] ([facility]) Name Value Range Interpretation Code Description Data Madyson rce(s) Supporting Document(s) Surgical pathology study Laboratory test result [facility] ([facility]) Addendum 1 Entered: 01/10/2020-0805 PD-L1 KEYTRUDA shows tumor proportion score of 80%/High expression. See complete report from [facility]. Negative EGFR Negative for KRAS Negative for BRAF Negative for ALK Negative for ROS1 See complete reports from [facility], scanned in EMR under pathology module. 01/10/2020804 Addendum Signed____ Isabella Mckeon MD 01/10/2020804 FINAL DIAGNOSIS Right lung, lower lobe, biopsy: Poorly differentiated/high grade adenocarcinoma. TTF-1 is positive in tumor cells and P40 stain is negative. See note. NOTE: The unstained slides were sent for PD-L1 testing to [facility] and the tissue block to [facility] for molecular test panel. Addendum with results will follow. 4/TR 12/28/2019 - 1252 CLINICAL DIAGNOSIS Abnormal x-ray 12/27/20191506 GROSS DIAGNOSIS Received in formalin labeled "right lower lobe" is a bag containing a 0.8 x 0.4 x 0.2 cm aggregate of pale whi te and red fragments. All in one. - 12/27/20191506 Signed Isabella Mckeon MD 12/28/2019 1252 ID Date Data Source [id number] 12/27/2019 07:15:00 AM EST [facility] ([facility], ) Name Value Range Interpretation Code Description Data Madyson rce(s) Supporting Document(s) Glucose [Mass/volume] in Capillary blood by Glucometer 152 mg/dL 83-110 Above high normal [facility] ([facility]) ID Date Data Source [id number] 12/27/2019 07:13:00 AM EST [facility] ([facility]) Name Value Range Interpretation Code Description Data Madyson rce(s) Supporting Document(s) Gram Stain Laboratory test result Normal (applies to non-n umeric results) [facility] ([facility], ) MANY WBCS NO ORGANISMS SEEN Bal Culture Laboratory test result Normal (applies to non- numeric results) [facility] ([facility], ) FULL REPORT IN LAB NOTES (eCW and [facility] ). NO GROWTH AEROBICALLY ID Date Data Source [id number] 01/09/2020 11:59:00 AM [facility] Anatomic Molecular Pathology ReportName: CLAY VALENZUELAJamesN: [id number] Number: [id number] Date: 12/27/2019 00:00Received Date: 12/29/2019 14:28Physician(s): BRIANA HUGHES MD Haghir, Shahandeh MDCopy To:BRIANA HUGHES MDSpecimen(s) ReceivedA: Right lung, lower lobe, Formalin Block [id number] received from [facility] in [place], [place] ROS1 by FISHDiagnosisTEST:ROS1 gene rearrangements by [...] associated with better response to treatmentwith crizotinib. jaj/kgElectronically Signed By Chelly Sena MD, PhD AttendingPathologist 01/09/2020 11:59:25Gross DescriptionMETHODOLOGY:Interphase FISH is performed on paraffin embedded NSCLC utilizing thecombined Sourcebits Molecular LSI ROS1(Farnaz) and ROS1(Tel) ROS1 Probes: 1)3'-ROS1(Farnaz), 557 kb, labeled with SpectrumGreen, and 2) 5'-ROS1(Tel),317kb, labeled with SpectrumOrange. Tumor cells with no HVW7rajpvymmuqvurt have 2 yellow signals (fused orange and [...] and its performance characteristics weredetermined by the [facility],and it has been authorized for clinical use by [facility]. The test has not been cleared or approved by the U.S. Food andDrug Administration. The analyte specific reagents used in this assay donot require FDA approval. Processed at [facility], [address] [place] [address] and reported at [facility], [address] [place] [address].REFERENCES: 1. ALEM Che, Ava AT, Elba GALVAN et al. Identifying and Targeting OHW8Ijxl Fusions in NonSmall Cell Lung Cancer. Clin Cancer Res 2012; 18(17);56788684.2. Carlin, [place] AT. Novel Targets in Non-Small Cell Lung Cancer:ROS-1 and RET fusions. The Oncologist. 2013;18:865- 875.This report may include one or more immunohistochemical stain results thatuse analyte specific reagents. All positive and negative controls havebeen reviewed by the attending pathologist and are satisfactory. The testswere developed and their performance characteristics determined by [facility] Pathology department. They have not been cleared or approved by the USFood and Drug Administration. The FDA has determined that such clearanceor approval is not necessary. Name Value Range Interpretation Code Description Data Madyson rce(s) Supporting Document(s) ID Date Data Source [id number] 01/09/2020 11:58:00 AM [facility] Anatomic Molecular Pathology ReportName: FELIX VALENZUELA: [id number] Number: [id number] Date: 12/27/2019 00:00Received Date: 12/29/2019 14:26Physician(s): BRIANA HUGHES MD Haghir, Shahandeh MDCopy To:BRIANA HUGHES MDSpecimen(s) ReceivedA: Right lung, lower lobe, Formalin Block [id number] received from [facility] in [place], [place], ALK by FISHDiagnosisTEST:ALK gene rearrangements by [...] is performed on paraffin embedded NSCLC utilizing theSourcebits Molecular ALK Break Apart FISH Probe Kit. [...] the special procedure laboratory of Department of Pathology,[facility]. Processed at [facility], [address] [place] [address] and reported at [facility], [address] [place] [address].This report may include one or more immunohistochemical stain results thatuse analyte specific reagents. All positive and negative controls havebeen reviewed by the attending pathologist and are satisfactory. The testswere developed and their performance characteristics determined by [facility] Pathology department. They have not been cleared or approved by the USFood and Drug Administration. The FDA has determined that such clearanceor approval is not necessary. Name Value Range Interpretation Code Description Data Madyson rce(s) Supporting Document(s) ID Date Data Source [id number] 01/08/2020 09:28:00 AM [facility] Anatomic Molecular Pathology ReportName: CLAY VALENZUELAJamesN: [id number] Number: [id number] Date: 12/27/2019 00:00Received Date: 12/29/2019 14:30Physician(s): BRIANA HUGHES MD Haghir, Shahandeh MDCopy To:BRIANA HUGHES MDSpecimen(s) ReceivedA: Right lung, lower lobe, Formalin Block [id number] received from [facility] in [place], [place] KRAS Mutation AnalysisDiagnosisTEST:KRAS gene mutations by [...] and pathologic information forevaluating the therapeutic response. kleny/ kgElectronically Signed By Jorge Balderas M.D. Attending Pathologist 01/08/2020 09:28:14Reported at [address] [place] [address]. Gross DescriptionMETHODOLOGY: The therascreen KRAS RGQ PCR Kit is a real-time qualitative PCR assayused on the Adictiz instrument for the detection of seven somaticmutations [...] linked to a probe.REFERENCES:1. TARIK Herrera, Prince SANDHU, Lynn MR, et al. [place] Societyof Clinical Oncology provisional clinical opinion: testing for KRAS genemutations in patients with metastatic colorectal carcinoma to predictresponse to anti-epidermal growth factor receptor monoclonal antibodytherapy. J Clin Oncol 27:6926-2569, 2009. 2. Karla Yanes , Sophie Ferguson , VIKTORIYA Scott, et al.Biomarkers predicting clinical outcome of epidermal growth factor receptortargeted therapy in metastatic colorectal cancer. J Natl Cancer Xars134:49567190, 2009.This report may include one or more immunohistochemical stain results thatuse analyte specific reagents. All positive and negative controls havebeen reviewed by the attending pathologist and are satisfactory. The testswere developed and their performance characteristics determined by [facility] Pathology department. They have not been cleared or approved by the USFood and Drug Administration. The FDA has determined that such clearanceor approval is not necessary. Name Value Range Interpretation Code Description Data Madyson rce(s) Supporting Document(s) ID Date Data Source [id number] 01/08/2020 09:26:00 AM [facility] Anatomic Molecular Pathology ReportName: FAUSTINO VALENZUELAN: [id number] Number: [id number] Date: 12/27/2019 00:00Received Date: 12/29/2019 14:29Physician(s): BRIANA HUGHES MD Haghir, Shahandeh MDCopy To:BRIANA HUGHES MDSpecimen(s) ReceivedA: Right lung, lower lobe, Formalin Block [id number] received from [facility] in [place], [place] EGFRDiagnosisTEST: EGFR gene mutations (exon 19 deletions, L858R, G719A, T790M, S768I,exon 20 insertions, L861Q) by [employer] RGQ real-time PCR RESULTS: An EGFR mutation is not detected.INTERPRETATION: NEGATIVE FOR EGFR GENE MUTATION.This test is FDA approved and intended to be used to select patients withnon-small cell lung cancer for whom EGFR tyrosine kinase inhibitor (TKI),such as afatinib, is indicated. Presence of exon 19 deletions, exon 72M160G or L861Q, exon 18 G719A or exon [...] M.D. Attending Pathologist 01/08/2020 09:26:13Reported at [address] [place] [id number]. Gross DescriptionMETHODOLOGY:The therascreen EGFR RGQ PCR Kit ([employer], [place], [place]) is a real-timequalitative PCR assay used on the Adictiz instrument for thedetection of seven types of mutations at EGFR oncogene. The kit requiresDNA extracted from formalin-fixed paraffin-embedded (FFPE) tissue ofnon-small cell lung cancer. The tumor area is identified by the attendingpathologist and manually microdissected. The assay uses Scorpionse andARMSe (Allele Refractory Mutation System) technologies, and isFDA-approved for clinical patient care. Allele-specific amplification isachieved by ARMS which exploits the ability of Taq DNA polymerase todistinguish between a matched and a mismatched base at the 3' end of a PCRprimer. Detection of amplification is performed using Scorpions, which arebifunctional molecules containing a PCR primer covalently linked to aprobe.REFERENCES:1. Sophie Berry., Karla Reilly., Sophie Woo. et al. EGFR-targeted therapyfor non-small cell lung cancer: focus on EGFR oncogenic mutation. Int. J. Med. Sci. 2013; 10: 320. 2. Radha Bennett., et al. First-line gefitinib in patients withadvanced non-small cell lung cancer harboring somatic EGFR mutations. J.Clin.Oncol. 2008;15: 2442.3. J Carlos SV, Mckenna HERNÁNDEZ, Tasia J et al. Epidermal growth factor receptormutations in lung cancer. Nature Review/Cancer. 2007;5509-6816.This report may include one or more immunohistochemical stain results thatuse analyte specific reagents. All positive and negative controls havebeen reviewed by the attending pathologist and are satisfactory. The testswere developed and their performance characteristics determined by [facility] Pathology department. They have not been cleared or approved by the USFood and Drug Administration. The FDA has determined that such clearanceor approval is not necessary. Name Value Range Interpretation Code Description Data Madyson rce(s) Supporting Document(s) ID Date Data Source [id number] 01/08/2020 09:23:00 AM [facility] Anatomic Molecular Pathology ReportName: FELIX VALENZUELA: [id number] Number: [id number] Date: 12/27/2019 00:00Received Date: 12/29/2019 14:32Physician(s): BRIANA HUGHES MD Haghir, Shahandeh [facility] To:BRIANA HUGHES MDSpecimejavy(s) ReceivedA: Right lung, lower lobe, Formalin Block [id number] received from [facility] in [place], [place] BRAF Mutation AnalysisDiagnosisTESTS:BRAF V600E mutation (1799 [...] other clinical andpathologic information for appropriate patient management.andrew/Issaectronically Signed By Jorge Balderas M.D. Attending Pathologist 01/08/2020 09:23:29Reported at [address] [place] [address]. Gross DescriptionMETHODOLOGY:BRAF V600E(1799 T>A) mutation at exon [...] amounts of PCR products, and analyzed by Instinctiv Q real timeinstrument. The analytical sensitivity (or minimum percentage of mutantDNA needed) is approximately 10% given sufficient DNA input. Test development and its performance characteristics were determined bythe [facility], and has beenauthorized for clinical use by [facility]. Thetest has not been cleared or approved by the U.S. Food and DrugAdministration. The analyte specific reagents used in this assay do notrequire FDA approval. REFERENCES: 1. Gisel Acosta, Sierra Cooper, et al. Detection of BRAF N406Eaqtkmyjd in colorectal cancer-comparison of automatic sequencing and realtime chemistry methodology. J Mol Diagn. 2006; 8:983209.2. Bora L, Tip TJ, Ella N, et al. BRAF mutation analysis in fineneedle aspiration (FNA) cytology of the thyroid. Diagn Mol Pathol.2006;15:743634.3. Machelle PK, Mesha ME, Caron M, et al. Clinical characteristics ofpatients with lung adenocarcinomas harboring BRAF mutations. J Clin Oncol.2011;29:7585-1937.This report may include one or more immunohistochemical stain results thatuse analyte specific reagents. All positive and negative controls havebeen reviewed by the attending pathologist and are satisfactory. The testswere developed and their performance characteristics determined by [facility] Pathology department. They have not been cleared or approved by the USFood and Drug Administration. The FDA has determined that such clearanceor approval is not necessary. Name Value Range Interpretation Code Description Data Madyson rce(s) Supporting Document(s) ID Date Data Source [id number] 12/22/2019 01:00:00 PM EDT [facility] Name Value Range Interpretation Code Description Data Madyson rce(s) Supporting Document(s) SARS coronavirus 2 RNA [facility] This lab was ordered by [facility] and reported by [facility]. ID Date Data Source [id number] 12/07/2019 10:38:00 AM EDT [facility] ([facility], ) Name Value Range Interpretation Code Description Data Madyson rce(s) Supporting Document(s) Glucose, Fasting 52 mg/dL 70-100 Below low normal [facility] ([facility], ) Creatinine For GFR 0.47 mg/dL 0.55-1.30 Below low normal [facility] ([facility]) Blood Urea Nitrogen 13 mg/dL 7-18 Normal (applies to non-nume blaire results) [facility] ([facility]) Glomerular Filtration Rate Laboratory test result Normal (applies to non- numeric results) [facility]) <content>Units are mL/min/1.73 m2</content>
<content></content>
<content>Chronic Kidney Disease Staging per NKF:</content>
<content></content>
<content>Stage I & II GFR >=60 Normal to Mildly Decreased</content>
<content>Stage III GFR 30- 59 Moderately Decreased</content>
<content>Stage IV GFR 15-29 Severely Decreased</content>
<content>Stage V GFR <15 Very Little GFR Left</content>
<content>ESRD GFR <15 on [employer]</content>
<content></content> Sodium Level 139 meq/L 136-145 Normal (applies to non-numeric res ults) [facility] ([facility]) Chloride Level 103 meq/L 98-107 Normal (applies to non-numeric r esults) [facility] ([facility]) Carbon Dioxide Level 32 meq/L 21-32 Normal (applies to non-num tyrese results) [facility] ([facility]) Potassium Serum 4.2 meq/L 3.5-5.1 Normal (applies to non-numeric results) [facility] ([facility]) Anion Gap 4 meq/L 8-16 Below low normal [facility] ( [facility]) Calcium Level 9.6 mg/dL 8.8-10.2 Normal (applies to non-numeric re sults) [facility]) ID Date Data Source [id number] 12/07/2019 10:38:00 AM EDT [facility] ([facility]) Name Value Range Interpretation Code Description Data Madyson rce(s) Supporting Document(s) Prothrombin Time 13.1 s 12.5-14.3 Normal (applies to non-numeric results) [facility] ([facility]) Partial Thromboplastin Time 34.0 s 24.2-38.5 Norm al (applies to non-numeric results) [facility] ([facility]) Inr 0.98 Normal (applies to non-numeric resul ts) [facility] ([facility]) THERAPUTIC HUMAN INR VALUES INDICATIONS NORMAL RANGES PROPHYLAXIS/TREATMENT OF: VENOUS THROMBOSIS 2.0-3.0 PULMONARY EMBOLISM 2.0-3.0 PREVENTION OF SYSTEMIC EMBOLISM FROM: TISSUE HEART VALVES 2.0-3.0 ACUTE MYOCARDIAL INFARCTION 2.0-3.0 VALVULAR HEART DISEASE 2.0-3.0 ATRIAL FIBRILLATION 2.0-3.0 MECHANICAL VALVES(HIGH RISK) 2.5-3.5 RECURRENT MYOCARDIAL INFARCTION 2.5-3.5 ID Date Data Source [id number] 12/07/2019 10:38:00 AM EDT [facility] ([facility]) Name Value Range Interpretation Code Description Data Madyson rce(s) Supporting Document(s) aPTT in Platelet poor plasma by Coagulation assay Laboratory test res ult [facility] ([facility]) Platelets [#/volume] in Blood by Automated count 281 10 150-450 Normal (applies to non-numeric results) [facility]) ID Date Data Source [id number] 12/07/2019 09:16:00 AM EDT [facility] ([facility]) Name Value Range Interpretation Code Description Data Madyson rce(s) Supporting Document(s) PDFReport Laboratory test result [facility] ([facility]) FVC-Pre 1.53 L [facility] ([facility]) FVC-Pred 2.81 L [facility] ([facility]) FVC-%Pred-Pre 54 L [facility] ([facility]) FVC-LLN 2.15 L [facility] ([facility]) Fev1-Pre 1.21 L [facility] ([facility]) Fev1-Pred 2.13 L [facility] ([facility]) Fev1-%Pred-Pre 56 L [facility]) Fev1-LLN 1.57 L [facility] ([facility], ) Fev6-Pred 2.69 L [facility] ([facility]) Fev6-Pre 1.53 L [facility] ([facility]) Fev6-%Pred-Pre 56 L [facility] ([facility]) Fev6-LLN 2.04 L [facility] ([facility]) Thu9kmu-Chhl 76 % [facility] ([facility]) Pdk3kkx-%Pred-Pre 103 % [facility] ([facility]) Iig1omk-Eif 79 % [facility] ([facility]) Fyz6edr-Xli 100 % [facility] ([facility]) Nkm6jsg-Zucf 95 % [facility] ([facility]) Xrg5mls-FYH 66 % [facility] ([facility]) Sru6pqm-%Pred-Pre 104 % [facility] ([facility]) FEFMax-Pred 5.42 L/E/sec [facility] ([facility]) FEFMax-Pre 3.58 L/E/sec [facility] ([facility]) FEFMax-%Pred-Pre 66 L/E/sec [facility] ([facility]) FEFMax-LLN 3.78 L/E/sec [facility] ([facility]) Qds2068-Eqx 1.06 L/E/sec [facility] ([facility], ) Zrh7725-%Pred-Pre 58 L/E/sec [facility] ([facility]) Hjo3155-Shsn 1.81 L/E/sec [facility] ([facility]) ExpTime-Pre 5.52 sec [facility] ([facility]) Qjj2981-YUX 0.63 L/E/sec [facility] ([facility]) Uba4mbz3-Pntt 79 % [facility] ([facility]) Rri5nmo4-LWD 70 % [facility] ([facility]) Vqa5lsh7-Kbt 79 % [facility] ([facility], ) Nyu5edm6-%Pred-Pre 99 % [facility] ([facility], ) ID Date Data Source MAGNESIUM LEVEL 11/27/2019 04:24:18 AM EDT eCW1 ([facility]) Name Value Range Interpretation Code Description Data Madyson rce(s) Supporting Document(s) 2.0 MAGNESIUM LEVEL eCW1 ([facility]) ID Date Data Source NT-PRO BNP 11/27/2019 04:24:14 AM EDT eCW1 ([facility]) Name Value Range Interpretation Code Description Data Madyson rce(s) Supporting Document(s) 138 NT-PRO BNP eCW1 ([facility]) ID Date Data Source CBC with Differential 11/27/2019 04:24:09 AM EDT eCW1 ([facility]) Name Value Range Interpretation Code Description Data Madyson rce(s) Supporting Document(s) 11.0 WHITE BLOOD COUNT eCW1 ([facility]) 3.76 RED BLOOD COUNT eCW1 ([facility]) 34.7 HEMATOCRIT eCW1 ([facility]) 10.8 HEMOGLOBIN eCW1 ([facility]) 28.7 MEAN CORPUSCULAR HEMOGLOBIN eC W1 ([facility]) 31.1 MEAN CORPUSCULAR HGB CONC eCW1 ([facility]) 92.3 MEAN CORPUSCULAR VOLUME eCW1 ( [facility]) 276 PLATELET COUNT, AUTOMATED eCW1 ([facility]) 14.3 RED CELL DISTRIBUTION WIDTH eC W1 ([facility]) 61.9 NEUTROPHILS % eCW1 ([facility]) 7.9 MONO % eCW1 ([facility]) 21.6 LYMPH % eCW1 ([facility]) 7.8 EOS % eCW1 ([facility]) 6.8 NEUTROPHILS # eCW1 ([facility]) 0.4 BASO % eCW1 ([facility]) 2.4 LYMPH # eCW1 ([facility]) 0.9 MONO # eCW1 ([facility]) 0.9 EOS # eCW1 ([facility]) 0.0 BASO # eCW1 ([facility]) Procedure Social History Code Duration Value Status Description Data Source(s ) Smoking 01/11/2020 12:00:00 AM EST Patient is a former smoker completed Patient is a former smoker [facility] ([facility], ) Smoking 12/06/2019 12:00:00 AM EDT Former Smoker completed Former Smoker eCW1 ([facility]) Smoking 12/06/2019 12:00:00 AM EDT Former Smoker completed Former Smoker eCW1 ([facility]) Smoking 12/06/2019 12:00:00 AM EDT Former Smoker completed Former Smoker eCW1 ([facility]) Smoking 12/06/2019 12:00:00 AM EDT Former Smoker completed Former Smoker eCW1 ([facility]) Smoking 12/06/2019 12:00:00 AM EDT Former Smoker completed Former Smoker eCW1 ([facility]) Smoking 12/06/2019 12:00:00 AM EDT Former Smoker completed Former Smoker eCW1 ([facility]) Smoking 12/06/2019 12:00:00 AM EDT Former Smoker completed Former Smoker eCW1 ([facility]) Smoking 12/06/2019 12:00:00 AM EDT Former Smoker completed Former Smoker eCW1 ([facility]) Smoking 12/06/2019 12:00:00 AM EDT Former Smoker completed Former Smoker eCW1 ([facility]) Smoking 12/06/2019 12:00:00 AM EDT Former Smoker completed Former Smoker eCW1 ([facility]) Smoking 12/06/2019 12:00:00 AM EDT Former Smoker completed Former Smoker eCW1 ([facility]) Smoking 12/06/2019 12:00:00 AM EDT Former Smoker completed Former Smoker eCW1 ([facility]) Smoking 12/06/2019 12:00:00 AM EDT Former Smoker completed Former Smoker eCW1 ([facility]) Smoking 12/06/2019 12:00:00 AM EDT Former Smoker completed Former Smoker eCW1 ([facility]) Smoking 12/06/2019 12:00:00 AM EDT Former Smoker completed Former Smoker eCW1 ([facility]) Smoking 12/06/2019 12:00:00 AM EDT Former Smoker completed Former Smoker eCW1 ([facility]) Smoking 12/06/2019 12:00:00 AM EDT Former Smoker completed Former Smoker eCW1 ([facility]) Smoking 12/06/2019 12:00:00 AM EDT Former Smoker completed Former Smoker eCW1 ([facility]) Smoking 12/06/2019 12:00:00 AM EDT Former Smoker completed Former Smoker eCW1 ([facility]) Smoking 11/27/2019 12:00:00 AM EDT Former Smoker completed Former Smoker eCW1 ([facility]) Smoking 08/04/2019 12:00:00 AM EDT Former Smoker completed Former Smoker eCW1 ([facility]) Smoking 08/04/2019 12:00:00 AM EDT Former Smoker completed Former Smoker eCW1 ([facility]) Smoking 08/04/2019 12:00:00 AM EDT Former Smoker completed Former Smoker eCW1 ([facility]) Smoking 07/28/2019 12:34:53 PM EDT Ex-smoker (finding) complet ed Ex-smoker (finding) [facility] ([facility]) Smoking 05/22/2019 05:14:12 PM EDT Ex-smoker (finding) complet ed Ex-smoker (finding) [facility] ([facility]) Smoking 05/22/2019 05:06:57 PM EDT Ex-smoker (finding) complet ed Ex-smoker (finding) [facility] ([facility]) Smoking 05/22/2019 04:59:57 PM EDT Ex-smoker (finding) complet ed Ex-smoker (finding) [facility] ([facility]) Smoking 05/22/2019 04:50:10 PM EDT Ex-smoker (finding) complet ed Ex-smoker (finding) [facility] ([facility]) Smoking 05/22/2019 04:17:00 PM EDT Ex-smoker (finding) complet ed Ex-smoker (finding) [facility] ([facility]) Smoking 05/22/2019 04:03:26 PM EDT Ex-smoker (finding) complet ed Ex-smoker (finding) [facility] ([facility]) Smoking 05/22/2019 03:50:28 PM EDT Ex-smoker (finding) complet ed Ex-smoker (finding) [facility] (Bebeto Mcfadden MD [facility]) Vital Signs ID Date Data Source UNK Name Value Range Interpretation Code Description Data Source(s) Body surface area Derived from formula 1.67 m2 1.67 m2 [facility] ([facility]) Body weight 64.865 kg 64.865 kg [facility] ([facility]) [place] body weight 110 [lb_av] 110 [lb_av] [facility] ([facility]) Body mass index (BMI) [Ratio] 25.7 kg/m2 25.7 k g/m2 [facility] ([facility]) Body weight 143.00 [lb_av] 143.00 [lb_av] [facility] ([facility]) Body height 62.5 [in_i] 62.5 [in_i] [facility] ([facility]) 5'2.50" Oxygen saturation in Arterial blood by Pulse oximetry 97 % 97 % [facility] ([facility]) Heart rate 97 /min 97 /min [facility] ([facility]) Diastolic blood pressure 70 mm[Hg] 70 mm[Hg] [facility] ([facility]) Systolic blood pressure 122 mm[Hg] 122 mm[facility]Hg] [facility] Body surface area Derived from formula 1.67 m2 1.67 m2 [facility] ([facility]) Body weight 64.638 kg 64.638 kg [facility] ([facility]) [place] body weight 110 [lb_av] 110 [lb_av] [facility] ([facility]) Body mass index (BMI) [Ratio] 25.6 kg/m2 25.6 k g/m2 [facility] ([facility]) Body weight 142.50 [lb_av] 142.50 [lb_av] [facility] ([facility]) Body height 62.5 [in_i] 62.5 [in_i] [facility] ([facility]) 5'2.50" Body temperature 96.8 [degF] 96.8 [degF] [facility] ([facility]) Oxygen saturation in Arterial blood by Pulse oximetry 96 % 96 % [facility] ([facility]) Heart rate 100 /min 100 /min [facility] ([facility]) Diastolic blood pressure 64 mm[Hg] 64 mm[Hg] [facility] ([facility]) Systolic blood pressure 122 mm[Hg] 122 mm[Hg] [facility] ([facility]) Body weight 65.999 kg 65.999 kg [facility] ([facility]) [place] body weight 110 [lb_av] 110 [lb_av] [facility] Body mass index (BMI) [Ratio] 26.2 kg/m2 26.2 k g/m2 [facility] ([facility]) Body weight 145.50 [lb_av] 145.50 [lb_av] [facility] Body height 62.5 [in_i] 62.5 [in_i] [facility] ([facility]) 5'2.50" Oxygen saturation in Arterial blood by Pulse oximetry 95 % 95 % [facility] ([facility]) Heart rate 87 /min 87 /min [facility] ([facility]) Diastolic blood pressure 60 mm[Hg] 60 mm[Hg] [facility] ([facility]) Systolic blood pressure 106 mm[Hg] 106 mm[Hg] [facility] Diastolic blood pressure 74 mm[Hg] 74 mm[Hg] eCW1 ([facility]) Systolic blood pressure 126 mm[Hg] 126 mm[Hg] e CW1 ([facility]) Body temperature 97.1 [degF] 97.1 [degF] eCW1 ( [facility]) Respiratory rate 18 /min 18 /min eCW1 ([facility]) Heart rate 90 /min 90 /min eCW1 ([facility]) Body mass index (BMI) [Ratio] 26.42 kg/m2 26.42 kg/m2 eCW1 ([facility]) Body height 62.5 [in_i] 62.5 [in_i] eCW1 ([facility]) Body weight 146.8 [lb_av] 146.8 [lb_av] eCW1 ([facility]) Diastolic blood pressure 66 mm[Hg] 66 mm[Hg] eCW1 ([facility]) Systolic blood pressure 110 mm[Hg] 110 mm[Hg] e CW1 ([facility]) Body temperature 97.1 [degF] 97.1 [degF] eCW1 ( [facility]) Respiratory rate 18 /min 18 /min eCW1 ([facility]) Heart rate 88 /min 88 /min eCW1 ([facility]) Body mass index (BMI) [Ratio] 26.85 kg/m2 26.85 kg/m2 eCW1 ([facility]) Body height 62.5 [in_i] 62.5 [in_i] eCW1 ([facility]) Body weight 149.2 [lb_av] 149.2 [lb_av] eCW1 ([facility]) Diastolic blood pressure 66 mm[Hg] 66 mm[Hg] eCW1 ([facility]) Systolic blood pressure 118 mm[Hg] 118 mm[Hg] e CW1 ([facility]) Body temperature 97.5 [degF] 97.5 [degF] eCW1 ( [facility]) Respiratory rate 18 /min 18 /min eCW1 ([facility]) Heart rate 100 /min 100 /min eCW1 ([facility]) Body mass index (BMI) [Ratio] 28.00 kg/m2 28.00 kg/m2 eCW1 ([facility]) Body height 62.5 [in_i] 62.5 [in_i] eCW1 ([facility]) Body weight 155.6 [lb_av] 155.6 [lb_av] eCW1 ([facility]) Diastolic blood pressure 60 mm[Hg] 60 mm[Hg] eCW1 ([facility]) Systolic blood pressure 112 mm[Hg] 112 mm[Hg] e CW1 ([facility]) Body temperature 98.3 [degF] 98.3 [degF] eCW1 ( [facility]) Respiratory rate 18 /min 18 /min eCW1 ([facility]) Heart rate 96 /min 96 /min eCW1 ([facility]) Body mass index (BMI) [Ratio] 28.11 kg/m2 28.11 kg/m2 eCW1 ([facility]) Body height 62.5 [in_us] 62.5 [in_us] eCW1 ([facility]) Body weight Measured 156.2 [lb_av] 156.2 [lb_av ] eCW1 ([facility]) Respiratory rate 16 /min 16 /min [facility] ( [facility]) Heart rate 64 /min 64 /min [facility] ([facility] ) Diastolic blood pressure 60 mm[Hg] 60 mm[Hg] [facility] ([facility]) Systolic blood pressure 110 mm[Hg] 110 mm[Hg] M EDENT ([facility]) Respiratory rate 16 /min 16 /min [facility] ( [facility]) Heart rate 76 /min 76 /min [facility] ([facility]) Diastolic blood pressure 80 mm[Hg] 80 mm[Hg] [facility] ([facility]) Systolic blood pressure 110 mm[Hg] 110 mm[Hg] M EDENT ([facility] ) Patient Treatment Plan of Care Planned Activity Planned Date Details Description Data Source (s) Acetaminophen 325 MG / Hydrocodone Bitartrate 5 MG Ora l Tablet 02/02/2020 12:00:00 AM EST eCW1 ([facility]) Acetaminophen 325 MG / Hydrocodone Bitartrate 5 MG Ora l Tablet 02/02/2020 12:00:00 AM EST eCW1 ([facility]) Acetaminophen 325 MG / Hydrocodone Bitartrate 5 MG Ora l Tablet 02/02/2020 12:00:00 AM EST eCW1 ([facility]) Acetaminophen 325 MG / Hydrocodone Bitartrate 5 MG Ora l Tablet 02/02/2020 12:00:00 AM EST eCW1 ([facility]) Acetaminophen 325 MG / Hydrocodone Bitartrate 5 MG Ora l Tablet 02/02/2020 12:00:00 AM EST eCW1 ([facility]) Acetaminophen 325 MG / Hydrocodone Bitartrate 5 MG Ora l Tablet 02/02/2020 12:00:00 AM EST eCW1 ([facility]) Acetaminophen 325 MG / Hydrocodone Bitartrate 5 MG Ora l Tablet 02/02/2020 12:00:00 AM EST eCW1 ([facility]) Acetaminophen 325 MG / Hydrocodone Bitartrate 5 MG Ora l Tablet 02/02/2020 12:00:00 AM EST eCW1 ([facility]) Acetaminophen 325 MG / Hydrocodone Bitartrate 5 MG Ora l Tablet 02/02/2020 12:00:00 AM EST eCW1 ([facility]) Acetaminophen 325 MG / Hydrocodone Bitartrate 5 MG Ora l Tablet 01/02/2020 12:00:00 AM EST eCW1 ([facility]) Acetaminophen 325 MG / Hydrocodone Bitartrate 5 MG Ora l Tablet 01/02/2020 12:00:00 AM EST eCW1 ([facility]) Acetaminophen 325 MG / Hydrocodone Bitartrate 5 MG Ora l Tablet 12/15/2019 12:00:00 AM EDT eCW1 ([facility]) Acetaminophen 325 MG / Hydrocodone Bitartrate 5 MG Ora l Tablet 12/15/2019 12:00:00 AM EDT eCW1 ([facility]) Acetaminophen 325 MG / Hydrocodone Bitartrate 5 MG Ora l Tablet 12/15/2019 12:00:00 AM EDT eCW1 ([facility]) Acetaminophen 325 MG / Hydrocodone Bitartrate 5 MG Ora l Tablet 12/15/2019 12:00:00 AM EDT eCW1 ([facility]) Albuterol Sulfate 108 (90 Base) MCG/ACT 11/27/2019 12:00:00 AM EDT eCW1 ([facility]) Prednisone 20 MG Oral Tablet 11/27/2019 12:00:00 AM EDT eCW1 ([facility]) besifloxacin 6 MG/ML Ophthalmic Suspension [Besivance] 06/03/2018 12:00:00 AM EDT [facility] (Bebeto Mcfadden MD [facility]) BromSite 0.075% Ophthalmic Solution 06/03/2018 12:00:00 AM EDT [facility] (Bebeto Mcfadden MD [facility]) prednisolone acetate 10 MG/ML Ophthalmic Suspension [P red Forte] 06/03/2018 12:00:00 AM EDT [facility] (Bebeto Mcfadden MD [facility])
--- NOTE | 2020-03-25 16:55 | REP ---
INDICATION: SOB. COMPARISON: 03/11/2020. TECHNIQUE: SINGLE PORTABLE AP VIEW OF THE CHEST WAS PERFORMED. FINDINGS: Diffuse right lung opacities and pleural fluid/thickening are centrally unchanged. Left lower lung infiltrates are unchanged. Heart mediastinum are grossly unchanged. Fracture is again noted of a right lower rib. IMPRESSION: Right pleural based density and bilateral infiltrates appear essentially unchanged. <Electronically signed by Sharad French > 03/25/20 [id number]
--- OUTSIDE RECORDS SUMMARY | 2020-03-25 16:59 | CCD ---
Author Author [facility] Organization [facility] Address Unknown Phone Unavailable Care Team Providers Care [employer]crete [employer] Name Role Phone Jasiel Dela Cruz MD [...] [phone] YULIYA, A. ALICE DO Unavailable [phone] Nicole DE JESUS DO Unavailable [phone] Re-disclosure Warning The records that you are [...] is protected by Article 27-F of the [facility] Public Health law. If you continue you may have access to information: Regarding HIV / AIDS; Provided by facilities licensed or operated by the [facility] Office of Mental Health; or Provided by the [facility] Office for People With Developmental Disabilities. If such information is present, then the following [facility] mandated warning applies: This information has [...] law may result in a fine or retirement sentence or both. A general authorization for the release of medical or other information is NOT sufficient authorization for further disc losure. Allergies and Adverse Reactions Type Description Substance Reaction Status Data Source(s ) aspirin Aspirin Aspirin Hives Active eCW1 ([facility]) Nickel Nickel Nickel Hives Active eCW1 ([facility]) Encounters Encounter Providers Location Date Indications Data Source(s ) Unknown [address] [facility] [address] 03/19/2020 12:00:00 AM EST eCW1 ([facility]) [place] [address] [facility] [address] 03/14/2020 12:00:00 AM EST eCW1 ([facility]) [place] [address] [facility] [address] 03/11/2020 12:00:00 AM EST eCW1 ([facility]) [place] [address] [facility] [place] [address] 03/05/2020 12:00:00 AM EST eCW1 ([facility]) [place] [address] [facility] [place] [address] 03/04/2020 12:00:00 AM EST eCW1 ([facility]) [place] [address] [facility] [place] [address] 03/04/2020 12:00:00 AM EST eCW1 ([facility]) [place] [address] [facility] [place] [address] 02/27/2020 12:00:00 AM EST eCW1 ([facility]) [place] [address] [facility] [place] [address] 02/21/2020 12:00:00 AM EST eCW1 ([facility]) Unknown [address] [facility] [place] [address] 02/21/2020 12:00:00 AM EST eCW1 ([facility]) Unknown [address] [facility] [place] [address] 02/14/2020 12:00:00 AM EST eCW1 ([facility]) Unknown [address] [facility] [place] [address] 02/02/2020 12:00:00 AM EST eCW1 ([facility]) Outpatient Referrer: Jasiel [email or web address] 04/2019 12:00:00 AM EST - 01/25/2020 08:49:[address] [facility] Unknown [address] [facility] [address] 01/24/2020 12:00:00 AM EST eCW1 ([facility]) Outpatient Attender: Briana Hawk/Víctor/Garrison/Chandler ndl 01/11/2020 01:30:00 PM EST MEDENT ([facility]) Outpatient Attender: Briana Hawk/Víctor/Garrison/Chandler ndl 01/03/2020 12:30:00 PM EST MEDENT ([facility]) Unknown [address] [facility], [facility] [address] 01/02/2020 12:00:00 AM EST eCW1 ([facility]) Outpatient Admitter: Briana Hughes MDReferrer: Briana palafox MD 12/27/2019 12:00:00 AM EST Malignant neoplasm of unspecified part o f unspecified bronchus or lung [facility] Malignant neoplasm of unspecified part o f unspecified bronchus or lung Unknown [address] [facility] [address] 12/26/2019 12:00:00 AM EST eCW1 ([facility]) Unknown [address] [facility] [address] 12/22/2019 12:00:00 AM EDT eCW1 ([facility]) Unknown [address] [facility] [address] 12/20/2019 12:00:00 AM EDT eCW1 ([facility]) Unknown [address] [facility] [place] [address] 12/15/2019 12:00:00 AM EDT eCW1 ([facility]) Outpatient Attender: Jasiel Dela Cruz MD [email or web address].[email or web address] 11/23 12:00:00 AM EDT - 12/13/2019 11:05:[address] [facility] Outpatient Attender: Briana Hawk/Víctor/Garrison/Chandler ndl 12/07/2019 09:30:00 AM EDT MEDENT ([facility]) Office Visit, Est Pt., Level 3 PC [address] [place] [address] 12/06/2019 12:00:00 AM EDT eCW1 ([facility]) Unknown [address] [facility] [address] 12/06/2019 12:00:00 AM EDT eCW1 ([facility]) Office Visit, Est Pt., Level [address] [place] [address] 11/27/2019 12:00:00 AM EDT eCW1 ([facility]) Unknown [address] [facility] [place] [address] 11/23/2019 12:00:00 AM EDT eCW1 ([facility]) Outpatient Attender: Carmen ALVARENGA Main office - [facility] 10/04/2019 08:15:00 AM EDT MEDENT ([facility], ) Unknown [address] [facility] [place] [address] 08/04/2019 12:00:00 AM EDT eCW1 ([facility]) Outpatient<td ID="encounterTypeDescripti onID0">1 Year Follow-Up</td><td>Alice De Jesus DO</td><td>Bebeto Valdivia MD [facility]</td><td>07/28/2019</td><td><content ID="encounterDiagnosisID0-0">Diabetes Mellitus Type 2 Without Complication</content>, <content ID="encounterDiagnosisID0-1">Dry Eye Syndrome</content>, <content ID="encounterDiagnosisID0-2">Pseudophakia</content>, <content ID="encounterDiagnosisID0-3">Assessment of Taking Medication For Diabetes Long- term Use of Oral Hypoglycemics</content>, <content ID="encounterDiagnosisID0- 4">Vitreous Disorders Degeneration</content></td> Attender: ALICE Vazquez MD [facility] 07/28/2019 07:20:00 AM EDT - 07/28/2019 07:47:00 AM EDT PseudophakiaVitreous Disorders Degenerat ionAssessment of Taking Medication For Diabetes Long-term Use of Oral HypoglycemicsDry Eye SyndromeDiabetes Mellitus Type 2 Without Complication [facility] (Bebeto Mcfadden MD [facility]) Pseudophakia Vitreous Disorders Degeneration Assessment of Taking Medication For Diab etes Long-term Use of Oral Hypoglycemics Dry Eye Syndrome Diabetes Mellitus Type 2 Without Complic ation Outpatient [address] [facility] [place] [address] 07/20/2019 12:00:00 AM EDT eCW1 ([facility]) [facility] [address] [place] [address] [place] [address] 07/18/2019 12:00:00 AM EDT eCW1 ([facility]) [address] [place] [address] 07/10/2019 12:00:00 AM EDT eCW1 ([facility]) [address] [place] [address] 07/10/2019 12:00:00 AM EDT eCW1 ([facility]) [address] [place] [address] 07/10/2019 12:00:00 AM EDT eCW1 ([facility]) Outpatient Attender: Carmen ALVARENGA [facility] 06/27/2019 09:15:00 AM EDT MEDENT ([facility] ROCIO Frias) [address] [place] [address] 05/18/2019 12:00:00 AM EDT eCW1 ([facility]) Outpatient 05/09/2019 11:06:00 AM EDT [facility] [address] [place] [address] 03/24/2019 12:00:00 AM EST eCW1 ([facility]) Outpatient Attender: Carmen ALVARENGA [facility] n 03/23/2019 10:00:00 AM EST MEDENT ([facility]) [address] [place] [address] 02/23/2019 12:00:00 AM EST eCW1 ([facility]) [facility] [address] [facility] [place] [address] 02/07/2019 12:00:00 AM EST eCW1 ([facility]) Outpatient Attender: Carmen ALVARENGA Main office - [facility] 02/03/2019 07:45:00 AM EST MEDENT ([facility], ) Immunizations Vaccine Date Status Description Data Source(s) New in 2011. IIV4 11/29/2019 02:34:00 PM EDT completed MEDENT ([facility], ) influenza, recombinant, quadrIvalent,injectable, prese rvative free 11/27/2019 01:05:00 PM EDT completed eCW1 ([facility]) influenza, recombinant, quadrIvalent,injectable, prese rvative free 11/27/2019 01:05:00 PM EDT completed eCW1 ([facility]) influenza, recombinant, quadrIvalent,injectable, prese rvative free 11/27/2019 01:05:00 PM EDT completed eCW1 ([facility]) influenza, recombinant, quadrIvalent,injectable, prese rvative free 11/27/2019 01:05:00 PM EDT completed eCW1 ([facility]) influenza, recombinant, quadrIvalent,injectable, prese rvative free 11/27/2019 01:05:00 PM EDT completed eCW1 ([facility]) influenza, recombinant, quadrIvalent,injectable, prese rvative free 11/27/2019 01:05:00 PM EDT completed eCW1 ([facility]) influenza, recombinant, quadrIvalent,injectable, prese rvative free 11/27/2019 01:05:00 PM EDT completed eCW1 ([facility]) influenza, recombinant, quadrIvalent,injectable, prese rvative free 11/27/2019 01:05:00 PM EDT completed eCW1 ([facility]) influenza, recombinant, quadrIvalent,injectable, prese rvative free 11/27/2019 01:05:00 PM EDT completed eCW1 ([facility]) influenza, recombinant, quadrIvalent,injectable, prese rvative free 11/27/2019 01:05:00 PM EDT completed eCW1 ([facility]) influenza, recombinant, quadrIvalent,injectable, prese rvative free 11/27/2019 01:05:00 PM EDT completed eCW1 ([facility]) influenza, recombinant, quadrIvalent,injectable, prese rvative free 11/27/2019 01:05:00 PM EDT completed eCW1 ([facility]) influenza, recombinant, quadrIvalent,injectable, prese rvative free 11/27/2019 01:05:00 PM EDT completed eCW1 ([facility]) influenza, recombinant, quadrIvalent,injectable, prese rvative free 11/27/2019 01:05:00 PM EDT completed eCW1 ([facility]) influenza, recombinant, quadrIvalent,injectable, prese rvative free 11/27/2019 01:05:00 PM EDT completed eCW1 ([facility]) influenza, recombinant, quadrIvalent,injectable, prese rvative free 11/27/2019 01:05:00 PM EDT completed eCW1 ([facility]) influenza, recombinant, quadrIvalent,injectable, prese rvative free 11/27/2019 01:05:00 PM EDT completed eCW1 ([facility]) influenza, recombinant, quadrIvalent,injectable, prese rvative free 11/27/2019 01:05:00 PM EDT completed eCW1 ([facility]) influenza, recombinant, quadrIvalent,injectable, prese rvative free 11/27/2019 01:05:00 PM EDT completed eCW1 ([facility]) influenza, recombinant, quadrIvalent,injectable, prese rvative free 11/27/2019 01:05:00 PM EDT completed eCW1 ([facility]) Medications Medication Brand Name Start Date Product Form Dose Route Admi nistrative Instructions Pharmacy Instructions Status Indications Reaction Description Data Source(s) Furosemide 40 MG Oral Tablet Furosemide 40 MG 03/14/2020 12:00:00 A M EST 1.0 {tablet} active Furosemide 40 MG eCW1 ( [facility]) Furosemide 40 MG Oral Tablet Furosemide 40 MG 03/14/2020 12:00:00 A M EST 1.0 {tablet} active Furosemide 40 MG eCW1 ( [facility]) Acetaminophen 325 MG / Hydrocodone Mariaelena trate 5 MG Oral Tablet Hydrocodone- Acetaminophen 5-325 MG Hydrocodone-Acetaminophen 5-325 MG 02/02/2020 12:00:00 AM EST 1.0 {tablet_as_needed} active Hydrocodone-Acetaminophen 5-325 MG eCW1 ([facility]) Acetaminophen 325 MG / Hydrocodone Mariaelena trate 5 MG Oral Tablet Hydrocodone- Acetaminophen 5-325 MG Hydrocodone-Acetaminophen 5-325 MG 02/02/2020 12:00:00 AM EST 1.0 {tablet_as_needed} active Hydrocodone-Acetaminophen 5-325 MG eCW1 ([facility]) Acetaminophen 325 MG / Hydrocodone Mariaelena trate 5 MG Oral Tablet Hydrocodone- Acetaminophen 5-325 MG Hydrocodone-Acetaminophen 5-325 MG 02/02/2020 12:00:00 AM EST 1.0 {tablet_as_needed} active Hydrocodone-Acetaminophen 5-325 MG eCW1 ([facility]) Acetaminophen 325 MG / Hydrocodone Mariaelena trate 5 MG Oral Tablet Hydrocodone- Acetaminophen 5-325 MG Hydrocodone-Acetaminophen 5-325 MG 02/02/2020 12:00:00 AM EST 1.0 {tablet_as_needed} active Hydrocodone-Acetaminophen 5-325 MG eCW1 ([facility]) Acetaminophen 325 MG / Hydrocodone Mariaelena trate 5 MG Oral Tablet Hydrocodone- Acetaminophen 5-325 MG Hydrocodone-Acetaminophen 5-325 MG 02/02/2020 12:00:00 AM EST 1.0 {tablet_as_needed} active Hydrocodone-Acetaminophen 5-325 MG eCW1 ([facility]) Acetaminophen 325 MG / Hydrocodone Mariaelena trate 5 MG Oral Tablet Hydrocodone- Acetaminophen 5-325 MG Hydrocodone-Acetaminophen 5-325 MG 02/02/2020 12:00:00 AM EST 1.0 {tablet_as_needed} active Hydrocodone-Acetaminophen 5-325 MG eCW1 ([facility]) Acetaminophen 325 MG / Hydrocodone Mariaelena trate 5 MG Oral Tablet Hydrocodone- Acetaminophen 5-325 MG Hydrocodone-Acetaminophen 5-325 MG 02/02/2020 12:00:00 AM EST 1.0 {tablet_as_needed} active Hydrocodone-Acetaminophen 5-325 MG eCW1 ([facility]) Acetaminophen 325 MG / Hydrocodone Mariaelena trate 5 MG Oral Tablet Hydrocodone- Acetaminophen 5-325 MG Hydrocodone-Acetaminophen 5-325 MG 02/02/2020 12:00:00 AM EST 1.0 {tablet_as_needed} active Hydrocodone-Acetaminophen 5-325 MG eCW1 ([facility]) Acetaminophen 325 MG / Hydrocodone Mariaelena trate 5 MG Oral Tablet Hydrocodone- Acetaminophen 5-325 MG Hydrocodone-Acetaminophen 5-325 MG 02/02/2020 12:00:00 AM EST 1.0 {tablet_as_needed} active Hydrocodone-Acetaminophen 5-325 MG eCW1 ([facility]) Acetaminophen 325 MG / Hydrocodone Mariaelena trate 5 MG Oral Tablet Hydrocodone- Acetaminophen 5-325 MG Hydrocodone-Acetaminophen 5-325 MG 02/02/2020 12:00:00 AM EST 1.0 {tablet_as_needed} active Hydrocodone-Acetaminophen 5-325 MG eCW1 ([facility]) Acetaminophen 325 MG / Hydrocodone Mraiaelena trate 5 MG Oral Tablet Hydrocodone- Acetaminophen 5-325 MG Hydrocodone-Acetaminophen 5-325 MG 02/02/2020 12:00:00 AM EST 1.0 {tablet_as_needed} active Hydrocodone-Acetaminophen 5-325 MG eCW1 ([facility]) Furosemide 20 MG Oral Tablet Furosemide 01/23/2020 12:00:00 AM EST ORAL active MEDENT ([facility], ) Acetaminophen 325 MG / Hydrocodone Bitartrate 5 MG Ora l Tablet Hydrocodone-Acetaminophen 01/11/2020 12:00:00 AM EST ORAL active MEDENT ([facility], ) Acetaminophen 325 MG / Hydrocodone Mariaelena trate 5 MG Oral Tablet Hydrocodone- Acetaminophen 5-325 MG Hydrocodone-Acetaminophen 5-325 MG 01/02/2020 12:00:00 AM EST 1.0 {tablet_as_needed} active Hydrocodone-Acetaminophen 5-325 MG eCW1 ([facility]) Acetaminophen 325 MG / Hydrocodone Mariaelena trate 5 MG Oral Tablet Hydrocodone- Acetaminophen 5-325 MG Hydrocodone-Acetaminophen 5-325 MG 01/02/2020 12:00:00 AM EST 1.0 {tablet_as_needed} active Hydrocodone-Acetaminophen 5-325 MG eCW1 ([facility]) Acetaminophen 325 MG / Hydrocodone Mariaelena trate 5 MG Oral Tablet Hydrocodone- Acetaminophen 5-325 MG Hydrocodone-Acetaminophen 5-325 MG 12/15/2019 12:00:00 AM EDT 1.0 {tablet_as_needed} active Hydrocodone-Acetaminophen 5-325 MG eCW1 ([facility]) Acetaminophen 325 MG / Hydrocodone Mariaelena trate 5 MG Oral Tablet Hydrocodone- Acetaminophen 5-325 MG Hydrocodone-Acetaminophen 5-325 MG 12/15/2019 12:00:00 AM EDT 1.0 {tablet_as_needed} active Hydrocodone-Acetaminophen 5-325 MG eCW1 ([facility]) Acetaminophen 325 MG / Hydrocodone Mariaelena trate 5 MG Oral Tablet Hydrocodone- Acetaminophen 5-325 MG Hydrocodone-Acetaminophen 5-325 MG 12/15/2019 12:00:00 AM EDT 1.0 {tablet_as_needed} active Hydrocodone-Acetaminophen 5-325 MG eCW1 ([facility]) Acetaminophen 325 MG / Hydrocodone Mariaelena trate 5 MG Oral Tablet Hydrocodone- Acetaminophen 5-325 MG Hydrocodone-Acetaminophen 5-325 MG 12/15/2019 12:00:00 AM EDT 1.0 {tablet_as_needed} active Hydrocodone-Acetaminophen 5-325 MG eCW1 ([facility]) 30 ACTUAT fluticasone furoate 0.1 MG/ACT UAT / vilanterol 0.025 MG/ACTUAT Dry Powder Inhaler [Breo] Breo Ellipta 12/07/2019 12:00:00 AM EDT active MEDENT ([facility]) Prednisone 20 MG Oral Tablet PredniSONE 20 MG PredniSONE 20 MG 11/27/2019 12:00:00 AM EDT 1.0 {tablet} active Pr edniSONE 20 MG eCW1 ([facility]) Prednisone 20 MG Oral Tablet PredniSONE 20 MG PredniSONE 20 MG 11/27/2019 12:00:00 AM EDT 1.0 {tablet} active Pr edniSONE 20 MG eCW1 ([facility]) Prednisone 20 MG Oral Tablet PredniSONE 20 MG PredniSONE 20 MG 11/27/2019 12:00:00 AM EDT 1.0 {tablet} active Pr edniSONE 20 MG eCW1 ([facility]) Prednisone 20 MG Oral Tablet PredniSONE 20 MG PredniSONE 20 MG 11/27/2019 12:00:00 AM EDT 1.0 {tablet} active Pr edniSONE 20 MG eCW1 ([facility]) Albuterol Sulfate 108 (90 Base) MCG/ACT UNK 11/27/2019 12: 00:00 AM EDT 1.0 {puff_as_needed} active Albuterol Sulfa te 108 (90 Base) MCG/ACT eCW1 ([facility]) Prednisone 20 MG Oral Tablet PredniSONE 20 MG PredniSONE 20 MG 11/27/2019 12:00:00 AM EDT 1.0 {tablet} active Pr edniSONE 20 MG eCW1 ([facility]) Albuterol Sulfate 108 (90 Base) MCG/ACT UNK 11/27/2019 12: 00:00 AM EDT 1.0 {puff_as_needed} active Albuterol Sulfa te 108 (90 Base) MCG/ACT eCW1 ([facility]) Albuterol Sulfate 108 (90 Base) MCG/ACT UNK 11/27/2019 12: 00:00 AM EDT 1.0 {puff_as_needed} active Albuterol Sulfa te 108 (90 Base) MCG/ACT eCW1 ([facility]) Prednisone 20 MG Oral Tablet PredniSONE 20 MG PredniSONE 20 MG 11/27/2019 12:00:00 AM EDT 1.0 {tablet} active Pr edniSONE 20 MG eCW1 ([facility]) Albuterol Sulfate 108 (90 Base) MCG/ACT UNK 11/27/2019 12: 00:00 AM EDT 1.0 {puff_as_needed} active Albuterol Sulfa te 108 (90 Base) MCG/ACT eCW1 ([facility]) Prednisone 20 MG Oral Tablet PredniSONE 20 MG PredniSONE 20 MG 11/27/2019 12:00:00 AM EDT 1.0 {tablet} active Pr edniSONE 20 MG eCW1 ([facility]) Prednisone 20 MG Oral Tablet PredniSONE 20 MG PredniSONE 20 MG 11/27/2019 12:00:00 AM EDT 1.0 {tablet} active Pr edniSONE 20 MG eCW1 ([facility]) Albuterol Sulfate 108 (90 Base) MCG/ACT UNK 11/27/2019 12: 00:00 AM EDT 1.0 {puff_as_needed} active Albuterol Sulfa te 108 (90 Base) MCG/ACT eCW1 ([facility]) Prednisone 20 MG Oral Tablet PredniSONE 20 MG PredniSONE 20 MG 11/27/2019 12:00:00 AM EDT 1.0 {tablet} active Pr edniSONE 20 MG eCW1 ([facility]) Prednisone 20 MG Oral Tablet PredniSONE 20 MG PredniSONE 20 MG 11/27/2019 12:00:00 AM EDT 1.0 {tablet} active Pr edniSONE 20 MG eCW1 ([facility]) Prednisone 20 MG Oral Tablet PredniSONE 20 MG PredniSONE 20 MG 11/27/2019 12:00:00 AM EDT 1.0 {tablet} active Pr edniSONE 20 MG eCW1 ([facility]) Albuterol Sulfate 108 (90 Base) MCG/ACT UNK 11/27/2019 12: 00:00 AM EDT 1.0 {puff_as_needed} active Albuterol Sulfa te 108 (90 Base) MCG/ACT eCW1 ([facility]) Albuterol Sulfate 108 (90 Base) MCG/ACT UNK 11/27/2019 12: 00:00 AM EDT 1.0 {puff_as_needed} active Albuterol Sulfa te 108 (90 Base) MCG/ACT eCW1 ([facility]) Prednisone 20 MG Oral Tablet PredniSONE 20 MG PredniSONE 20 MG 11/27/2019 12:00:00 AM EDT 1.0 {tablet} active Pr edniSONE 20 MG eCW1 ([facility]) Prednisone 20 MG Oral Tablet PredniSONE 20 MG PredniSONE 20 MG 11/27/2019 12:00:00 AM EDT 1.0 {tablet} active Pr edniSONE 20 MG eCW1 ([facility]) Albuterol Sulfate 108 (90 Base) MCG/ACT UNK 11/27/2019 12: 00:00 AM EDT 1.0 {puff_as_needed} active Albuterol Sulfa te 108 (90 Base) MCG/ACT eCW1 ([facility]) Albuterol Sulfate 108 (90 Base) MCG/ACT UNK 11/27/2019 12: 00:00 AM EDT 1.0 {puff_as_needed} active Albuterol Sulfa te 108 (90 Base) MCG/ACT eCW1 ([facility]) Prednisone 20 MG Oral Tablet PredniSONE 20 MG PredniSONE 20 MG 11/27/2019 12:00:00 AM EDT 1.0 {tablet} active Pr edniSONE 20 MG eCW1 ([facility]) Prednisone 20 MG Oral Tablet PredniSONE 20 MG PredniSONE 20 MG 11/27/2019 12:00:00 AM EDT 1.0 {tablet} active Pr edniSONE 20 MG eCW1 ([facility]) Prednisone 20 MG Oral Tablet PredniSONE 20 MG PredniSONE 20 MG 11/27/2019 12:00:00 AM EDT 1.0 {tablet} active Pr edniSONE 20 MG eCW1 ([facility]) Albuterol Sulfate 108 (90 Base) MCG/ACT UNK 11/27/2019 12: 00:00 AM EDT 1.0 {puff_as_needed} active Albuterol Sulfa te 108 (90 Base) MCG/ACT eCW1 ([facility]) Prednisone 20 MG Oral Tablet PredniSONE 20 MG PredniSONE 20 MG 11/27/2019 12:00:00 AM EDT 1.0 {tablet} active Pr edniSONE 20 MG eCW1 ([facility]) Prednisone 20 MG Oral Tablet PredniSONE 20 MG PredniSONE 20 MG 11/27/2019 12:00:00 AM EDT 1.0 {tablet} active Pr edniSONE 20 MG eCW1 ([facility]) gabapentin 100 MG Oral Capsule Gabapentin 02/03/2019 12:00:00 AM EST ORAL active MEDENT ([facility]) prednisolone acetate 10 MG/ML Ophthalmic Suspension [Pred Forte] Pred Forte 1% Ophthalmic Suspension Pred Forte 1% Ophthalmic Suspension 06/03/2018 12:00:0 0 AM EDT aborted predniso lone acetate 10 MG/ML Ophthalmic Suspension [Pred Forte] [facility] (Bebeto Mcfadden MD [facility]) besifloxacin 6 MG/ML Ophthalmic Suspensi on [Besivance] Besivance 0.6% Ophthalmic Suspension Besivance 0.6% Ophthalmic Suspension 06/03/2018 12:00:00 AM EDT aborted besifloxacin 6 MG/ML Ophthalmic Suspension [Besivance] [facility] (Bebeto Mcfadden MD [facility]) BromSite 0.075% Ophthalmic Solution BromSite 0.075% Ophthalm ic Solution 06/03/2018 12:00:00 AM EDT aborted bromfenac 0.75 MG/ML Ophthalmic Solution [Bromsite] W[facility] (Bebeto Mcfadden MD [facility]) Insurance Providers Payer name Policy type / Coverage type Policy ID Covered constitution party ID Covered constitution party's relationship to toscano Policy [place] Plan Information MEDICARE COMPLETE [id number] SP [id number] MEDICARE COMPLETE-[facility] [id number] S [id number] [facility] [id number] UHC UNITED MEDICARE COMPLETE G [id number] Self [id number] [facility] [id number] Self [id number] MEDICARE COMPLETE [id number] SP [id number] [facility] MEDICAID [id number] Chleita [id number] MEDICARE COMPLETE [id number] SP [id number] MEDICARE COMPLETE [id number] SP [id number] ANSI-Medicare Part B [id number] ANSI-Medicare Part B [id number] Medicare Solutions Commercial [id number] Self [id number] ANSI-Medicare Part B [id number] ANSI-Medicare Part B [id number] ANSI-Medicare Part B [id number] ANSI-Medicare Part B [id number] ANSI-Medicare Part B [id number] ANSI-Medicare Part B [id number] ANSI-Medicare Part B [id number] ANSI-Medicare Part B [id number] ANSI-Medicare Part B [id number] MEDICARE COMPLETE [id number] Problems, Conditions, and Diagnoses Code Display Name Description Problem Type Effective Dates Data Source(s) F43.21 22102907 Situational depression Problem 03/05/2020 12 :00:00 AM EST eCW1 ([facility]) F32.9 57828290 Reactive depression (situational) Problem 03/05/2020 12:00:00 AM EST eCW1 ([facility]) G89.3 [id number] Pain, cancer Problem 12/15/2019 12:00:00 AM EDT eCW1 ([facility]) J84.9 809393177 Interstitial lung disease Problem 11/28/2019 12:00:00 AM EDT eCW1 ([facility]) K21.9 Gastroesophageal reflux disease Gastroesophageal reflu x disease Problem 11/27/2019 12:00:00 AM EDT eCW1 ([facility]) G89.29 82417091 Other chronic pain Problem 07/20/2019 12:00: 00 AM EDT eCW1 ([facility]) E78.2 892983820 Mixed hyperlipidemia Problem 07/19/2019 12:0 0:00 AM EDT eCW1 ([facility]) I10 Essential hypertension Essential (primary) hypertensio n Problem 03/24/2019 12:00:00 AM EST eCW1 ([facility]) I10 Essential hypertension Essential (primary) hypertensio n Problem 03/24/2019 12:00:00 AM EST eCW1 ([facility]) I06.0 Rheumatic aortic stenosis Rheumatic aortic stenosis Di agnosis 01/25/2020 07:57:25 AM [facility] Z01.810 Encounter for preprocedural cardiovascul ar examination Encounter for preprocedural cardiovascul Diagnosis 01/25/2020 07:57:25 AM EST [facility] C34.90 Malignant neoplasm of unspecified part o f unspecified bronchus or lung Malignant neoplasm of unspecified part of unspecified bronchus or lung Diagnosis 12/27/2019 02:06:00 PM [facility] Surgeries/Procedures Procedure Description Date Indications Data Source(s) Bronchoscopy W/Brushing Or Protected Brushings 020 12:00:00 AM EST [facility] ([facility], ) Bronchoscopy W/Bronchial Alveolar Lavage 12/27/2019 12 :00:00 AM EST [facility] ([facility], ) Bronchoscopy W/Transbronchial Lung Biopsy 12/27/2019 1 2:00:00 AM EST [facility] ([facility], ) With Endobronchial Ultrasound Guided 12/27/2019 12:00: 00 AM EST [facility] ([facility], ) Spirometry 12/07/2019 12:00:00 AM EDT M EDENT ([facility], ) Aerosol Or Vapor Inhalations 12/07/2019 12:00:00 AM ED T MED[facility] ([facility], ) Immunization: Flublok Quadrivalent (18 years & older) 0.5mL IM (Influenza) 11/27/2019 12:00:00 AM EDT eCW1 ([facility]) History of the retina was normal 07/08/2018 History of the retina was normal 07/08/2018 07/28/2019 12:00:00 AM EDT WES (Bartolo Mcfadden MD [facility]) Currently wearing eyeglasses Currently wearing eyeglasses 12:00:00 AM EDT WES (Bebeto Mcfadden MD [facility]) History of diabetes mellitus Dx: around , A1c: 7.2 with Denise Soosairasamaria MEDICAL TRANSLATOR , FBS: 114 this morning History of diabetes mellitus Dx: around , A1c: 7.2 with Denise Soosairaj MEDICAL TRANSLATOR , FBS: 114 this morning 07/28/2019 12:00:00 AM EDT WES (Bebeto liu MD [facility]) Intermediate Eye Exam Established Patient Intermediate Eye Exam Established Patient 07/28/2019 12:00:00 AM EDT WES (Bartolo Mcfadden MD [facility]) History of extracapsular cataract extrac tion PCIOL OS 05/26/[address] De Jesus ~PCIOL OD 06/16/[address] De Jesus History of extracapsular cataract extraction PCIOL OS 05/26/[address] De Jesus ~PCIOL OD 06/16/[address] De Jesus 05/22/2019 12:00:00 AM EDT WES (Bartolo Mcfadden MD [facility]) History of diabetes mellitus Dx: around , A 1c: 7.8, FBS: 160 History of diabetes mellitus Dx: around , A1c: 7.8, FBS: 160 05/22/2019 12:00:00 AM EDT WES (Bebeto Mcfadden MD [facility]) History of extracapsular cataract extrac tion PCIOL OS 05/26/[address] De Jesus ~PCIOL OD 06/16/[address] De Jesus History of extracapsular cataract extraction PCIOL OS 05/26/[address] De Jesus ~PCIOL OD 06/16/[address] De Jesus 05/22/2019 12:00:00 AM EDT WES (Bartolo Mcfaddne MD [facility]) History of extracapsular cataract extrac tion PCIOL OS 05/26/[address] De Jesus History of extracapsular cataract extrac tion PCIOL OS 05/26/[address] De Jesus 05/22/2019 12:00:00 AM EDT WES (Bartolo Mcfadden MD [facility]) History of diabetes mellitus Dx: around , A 1c: 7.8, FBS: 160 History of diabetes mellitus Dx: around , A1c: 7.8, FBS: 160 05/22/2019 12:00:00 AM EDT WES (Bebeto Mcfadden MD [facility]) History of extracapsular cataract extrac tion PCIOL OS 05/26/[address] De Jesus ~PCIOL OD 06/16/[address] De Jesus History of extracapsular cataract extraction PCIOL OS 05/26/[address] De Jesus ~PCIOL OD 06/16/[address] De Jesus 05/22/2019 12:00:00 AM EDT WES (Bartolo Mcfadden MD [facility]) Surgical / procedural history 1985, Broken left wrist 1996, Right knee replacement 2014 Surgical / procedural history 1985, Broken left wrist 1996, Right knee replacement 201405/12/2019 12:00:00 AM EDT WES (Bebeto Mcfadden MD [facility]) History of diabetes mellitus Dx: around , A 1c: 7.8, FBS: 160 History of diabetes mellitus Dx: around , A1c: 7.8, FBS: 160 05/12/2019 12:00:00 AM EDT WES (Bebeto Mcfadden MD [facility]) Surgical / procedural history 1985, Broken left wrist 1996, Right knee replacement 2014 Surgical / procedural history 1985, Broken left wrist 1996, Right knee replacement 201405/12/2019 12:00:00 AM EDT WES (Bebeto Mcfadden MD [facility]) No recent change in medical history No recent change in medi leticia history 05/12/2019 12:00:00 AM EDT WES (Bebeto liu MD [facility]) History of diabetes mellitus Dx: around , A1 c: 7.8, FBS: 160 History of diabetes mellitus Dx: around , A1c: 7.8, FBS: 160 05/12/2019 12:00:00 AM EDT WES (Bebeto Mcfadden MD [facility]) Surgical / procedural history 1985, Broken left wrist 1996, Right knee replacement 2014 Surgical / procedural history 1985, Broken left wrist 1996, Right knee replacement 201405/12/2019 12:00:00 AM EDT WES (Bebeto Mcfadden MD [facility]) History of extracapsular cataract extraction OS [address] De Jesus History of extracapsular cataract extraction OS 05/26/[address] De Jesus 05/12/2019 12:00:00 AM EDT WES (Bebeto liu MD [facility]) History of diabetes mellitus Dx: around , A1 c: 7.8, FBS: 160 History of diabetes mellitus Dx: around , A1c: 7.8, FBS: 160 05/12/2019 12:00:00 AM EDT WES (Bebeto Mcfadden MD [facility]) Recent change in medical history Cataract surgery OS 05/26/[address] De Jesus Recent change in medical history Cataract surgery OS 05/26/[address] De Jesus 05/12/2019 12:00:00 AM EDT WES (Bebeto liu MD [facility]) Surgical / procedural history 1985, Broken left wrist 1996, Right knee replacement 2014 Surgical / procedural history 1985, Broken left wrist 1996, Right knee replacement 201405/12/2019 12:00:00 AM EDT WES (Bebeto Mcfadden MD [facility]) History of diabetes mellitus Dx: around , A1 c: 7.8, FBS: 160 History of diabetes mellitus Dx: around , A1c: 7.8, FBS: 160 05/12/2019 12:00:00 AM EDT WES (Bebeto Mcfadden MD [facility]) Surgical / procedural history 1985, Broken left wrist 1996, Right knee replacement 2014 Surgical / procedural history 1985, Broken left wrist 1996, Right knee replacement 201405/12/2019 12:00:00 AM EDT WES (Bebeto Mcfadden MD [facility]) History of diabetes mellitus Dx: around , A1c: 7.8, FBS: yesterday was around 160 History of diabetes mellitus Dx: around , A1c: 7.8, FBS: yesterday was around 160 05/12/2019 12:00:00 AM EDT WES (Bebeto Mcfadden MD [facility]) Surgical / procedural history 1985, Broken left wrist 1996, Right knee replacement 2014 Surgical / procedural history 1985, Broken left wrist 1996, Right knee replacement 201405/12/2019 12:00:00 AM EDT WES (Bebeto Mcfadden MD [facility]) No recent change in medical history No recent change in medi leticia history 05/12/2019 12:00:00 AM EDT WES (Bebeto liu MD [facility]) Surgical / procedural history 1985, Broken left wrist 1996, Right knee replacement 2014 Surgical / procedural history 1985, Broken left wrist 1996, Right knee replacement 201405/12/2019 12:00:00 AM EDT WES (Bebeto Mcfadden MD [facility]) Office Visit, Est Pt., Level 2 FC 03/24/2019 12:00:00 AM EST eCW1 ([facility]) Office Visit, Est Pt., Level 4 PC 03/24/2019 12:00:00 AM EST eCW1 ([facility]) Results ID Date Data Source [id number] 03/11/2020 01:01:00 PM EST [facility] Name Value Range Interpretation Code Description Data Madyson rce(s) Supporting Document(s) SARS coronavirus 2 RNA [Presence] in Res piratory specimen by PLIY with probe detection NEGATIVE [facility] This lab was ordered by [facility] a nd reported by [facility]. ID Date Data Source [id number] 02/27/2020 03:48:00 PM EST [facility] Name Value Range Interpretation Code Description Data Madyson rce(s) Supporting Document(s) SARS-CoV-2 (COVID 19) NEGATIVE - SARS-CoV-2 (COVID19) [facility] This lab was ordered by [facility] a nd reported by [facility]. ID Date Data Source [id number] 01/27/2020 04:23:00 PM EST [facility] Name Value Range Interpretation Code Description Data Madyson rce(s) Supporting Document(s) SARS-CoV-2 (COVID 19) [facility] This lab was ordered by [facility] a nd reported by [facility]. ID Date Data Source [id number] 01/26/2020 11:40:00 AM EST MEDENT ([facility]) Name Value Range Interpretation Code Description Data Madyson rce(s) Supporting Document(s) Natriuretic peptide.B prohormone N-Terminal [Mass/volu me] in Serum or Plasma 713 pg/mL Above high normal [facility], ) ID Date Data Source [id number] 01/26/2020 11:40:00 AM [facility] ([facility]) Name Value Range Interpretation Code Description Data Madyson rce(s) Supporting Document(s) Glucose, Fasting 142 mg/dL 70-100 Above high normal M EDENT ([facility]) Blood Urea Nitrogen 15 mg/dL 7-18 Normal (applies to non-nume blaire results) [facility] ([facility]) Creatinine For GFR 0.51 mg/dL 0.55-1.30 Below low normal [facility] ([facility]) Glomerular Filtration Rate Laboratory test result Normal (applies to non- numeric results) [facility] ([facility]) <content>Units are mL/min/1.73 m2</content>
<content></content>
<content>Chronic Kidney Disease Staging per NKF:</content>
<content></content>
<content>Stage I & II GFR >=60 Normal to Mildly Decreased</content>
<content>Stage III GFR 30- 59 Moderately Decreased</content>
<content>Stage IV GFR 15-29 Severely Decreased</content>
<content>Stage V GFR <15 Very Little GFR Left</content>
<content>ESRD GFR <15 on RN DIALYSIS</content>
<content></content> Potassium Serum 4.0 meq/L 3.5-5.1 Normal (applies to non-numeric results) [facility] ([facility]) Sodium Level 140 meq/L 136-145 Normal (applies to non-numeric res ults) [facility] ([facility]) Carbon Dioxide Level 33 meq/L 21-32 Above high normal [facility] ([facility]) Anion Gap 6 meq/L 8-16 Below low normal [facility] ( [facility]) Chloride Level 101 meq/L 98-107 Normal (applies to non-numeric r esults) [facility] ([facility]) Calcium Level 8.7 mg/dL 8.8-10.2 Below low normal [facility]EN T ([facility]) ID Date Data Source [id number] 01/09/2020 10:39:00 AM EST [facility] ([facility]) Name Value Range Interpretation Code Description Data Madyson rce(s) Supporting Document(s) Urea nitrogen [Mass/volume] in Serum or Plasma 12 mg/dL 7 -18 Normal (applies to non-numeric results) [facility] ([facility]) ID Date Data Source [id number] 01/09/2020 10:39:00 AM EST [facility] ([facility]) Name Value Range Interpretation Code Description Data Madyson rce(s) Supporting Document(s) Glomerular Filtration Rate Laboratory test result Normal (applies to non- numeric results) [facility] ([facility]) <content>Units are mL/min/1.73 m2</content>
<content></content>
<content>Chronic Kidney Disease Staging per NKF:</content>
<content></content>
<content>Stage I & II GFR >=60 Normal to Mildly Decreased</content>
<content>Stage III GFR 30- 59 Moderately Decreased</content>
<content>Stage IV GFR 15-29 Severely Decreased</content>
<content>Stage V GFR <15 Very Little GFR Left</content>
<content>ESRD GFR <15 on RN DIALYSIS</content>
<content></content> Creatinine For GFR 0.47 mg/dL 0.55-1.30 Below low normal [facility] ([facility]) ID Date Data Source [id number] 01/05/2020 11:01:00 AM EST [facility]) Name Value Range Interpretation Code Description Data Madyson rce(s) Supporting Document(s) Gram Stain Laboratory test result Normal (applies to non-n umeric results) [facility] ([facility]) MANY RBCS MODERATE WBCS NO ORGANISMS SEEN Body Fluid Culture Laboratory test result [facility] ([facility]) If aerobic or anaerobic growth is detected within the next 7-21 days, an addendum will follow. . . FULL REPORT IN LAB NOTES ([facility]). NO GROWTH AEROBICALLY ID Date Data Source [id number] 01/05/2020 11:01:00 AM EST [facility] ([facility]) Name Value Range Interpretation Code Description Data Madyson rce(s) Supporting Document(s) PH Body Fluid 7.399 units Normal (applies to non-numeric r esults) [facility] ([facility]) Source, Body Fluid pH Laboratory test result Nor mal (applies to non-numeric results) [facility]) ID Date Data Source [id number] 01/05/2020 11:01:00 AM EST [facility] ([facility]) Name Value Range Interpretation Code Description Data Madyson rce(s) Supporting Document(s) Source, Body Fluid Amylase Laboratory test result Normal (applies to non- numeric results) [facility] ([facility]) Amylase, Body Fluid 14 U/L Normal (applies to non-nume blaire results) [facility]) ID Date Data Source [id number] 01/05/2020 11:01:00 AM EST [facility]) Name Value Range Interpretation Code Description Data Madyson rce(s) Supporting Document(s) Glucose, Body Fluid 120 mg/dL Normal (applies to non-nume blaire results) [facility] ([facility]) Source, Body Fluid Glucose Laboratory test result Normal (applies to non- numeric results) [facility]) ID Date Data Source [id number] 01/05/2020 11:01:00 AM EST [facility]) Name Value Range Interpretation Code Description Data Madyson rce(s) Supporting Document(s) Source, Body Fluid LDH Laboratory test result No rmal (applies to non-numeric results) [facility] ([facility]) LDH, Body Fluid 188 U/L Normal (applies to non-numeric results) [facility] ([facility]) ID Date Data Source [id number] 01/05/2020 11:01:00 AM EST [facility]) Name Value Range Interpretation Code Description Data Madyson rce(s) Supporting Document(s) Total Protein, Body Fluid 4.1 g/dL Normal (applies to no n-numeric results) [facility] ([facility]) Source, Body Fluid Tot Protein Laboratory test result Normal (applies to non- numeric results) [facility]) ID Date Data Source [id number] 01/05/2020 11:01:00 AM EST [facility]) Name Value Range Interpretation Code Description Data Madyson rce(s) Supporting Document(s) Bacteria identified in Unspecified specimen by Anaerob e culture Laboratory test result [facility]) If anaerobic or aerobic growth is detected within the next 7-21 days, an addendum will follow. . . [facility]ULL RE[facility] NO GROWTH ANAEROBICALLY ID Date Data Source [id number] 01/05/2020 11:01:00 AM EST [facility] ([facility]) Name Value Range Interpretation Code Description Data Madyson rce(s) Supporting Document(s) Source, Body Fluid Laboratory test result Normal (applies to non-numeric results) [facility]) Pleural FL Color Laboratory test result Normal ( applies to non-numeric results) [facility] ([facility]) RBC Body Fluid 26 10 Normal (applies to non-numeric r esults) [facility] ([facility]) Appearance, Body Fluid Laboratory test result No rmal (applies to non-numeric results) [facility] ([facility]) WBC Body Fluid 634 /uL 0-10 Above high normal [facility] ([facility]) BF Mononuclear Cell % 94.6 % 0-0 Above high normal [facility] ([facility]) BF Polymorphonuclear Cell % 5.4 % 0-0 Above high normal [facility] ([facility]) ID Date Data Source [id number] 01/05/2020 11:01:00 AM EST [facility] ([facility]) Name Value Range Interpretation Code Description Data Madyson rce(s) Supporting Document(s) Amylase [Enzymatic activity/volume] in Body fluid Laboratory test res ult [facility] ([facility]) ID Date Data Source [id number] 01/05/2020 09:21:00 AM EST [facility] ([facility]) Name Value Range Interpretation Code Description Data Madyson rce(s) Supporting Document(s) Surgical pathology study Laboratory test result [facility] ([facility]) FINAL DIAGNOSIS Right pleural fluid, cell-block: No malignant cells identified. Inflammatory cells and mesothelial cells. TTF-1 stain used in evaluation. See specimen [id number] 01/09/2020 - 1113 CLINICAL DIAGNOSIS Right pleural effusion 01/08/2020 - 0709 GROSS DIAGNOSIS Received 400 ml of right pleural fluid for cell block. -OA 01/09/2020 - 111 Signed LILIYA WASHINGTON MD 01/09/2020 1113 ID Date Data Source [id number] 01/05/2020 09:21:00 AM EST [facility] ([facility]) Name Value Range Interpretation Code Description Data Madyson rce(s) Supporting Document(s) Microscopic observation [Identifier] in Unspecified specimen by Non- gynecological cytology method Laboratory test result [facility] ([facility]) SPECIMEN: Pleural fluid 400ml Red SPECIMEN ADEQUACY: Satisfactory for evaluation CATEGORIZATION: Rare Clusters of Atypical Cells DESCRIPTIONS: Few groups of atypical cells exhbiting irregular nuclei with prominent nucleoli, suspicious for metastatic carcinoma. COMMENTS: Clinical correlation is recommended. 01/09/2020 - [address](ASCP) 01/08/2020 0739 (Prelim) Signed LILIYA WASHINGTON MD 01/09/2020 112 ID Date Data Source [id number] 12/27/2019 02:30:00 PM EST [facility] ([facility]) Name Value Range Interpretation Code Description Data Madyson rce(s) Supporting Document(s) Surgical pathology study Laboratory test result [facility] ([facility]) Anatomic Molecular Pathology Report Name: OPAL VALENZUELA Collection Date: 12/27/2019 00:00 Received Date: 12/29/2019 14:28 Physician(s): BRIANA HUGHES MD Haghir, Shahandeh MD Copy To: BRIANA HUGHES MD Specimen(s) Received A: Right lung, lower lobe, Formalin Block [id number] received from [facility] in [place], [place] ROS1 by FISH Diagnosis TEST: ROS1 [...] its performance characteristics were determined by the [facility], and it has been authorized for clinical use by [facility]. The test has not been cleared or approved by the U.S. Food and Drug Administration. The analyte specific reagents used in this assay do not require FDA approval. Processed at [facility], [address] [place] [address] and reported at [facility], [address] [place] [address]. REFERENCES: 1. ALEM Che, Ava AT, Elba GALVAN et al. Identifying and Targeting ROS1 Gene Fusions in NonSmall Cell Lung Cancer. Clin Cancer Res 2012; 18(17); 79238867. 2. Carlin, [place] AT. Novel Targets i n Non-Small Cell Lung Cancer: ROS-1 and RET fusions. The Oncologist. 2013;18:865-875. This report may include one or more immunohistochemical stain results that use analyte specific reagents. All positive and negative controls have been reviewed by the attending pathologist and are satisfactory. The tests were developed and their performance characteristics determined by [facility] Pathology department. They have not been cleared or approved by the US Food and Drug Administration. The FDA has determined that such clearance or approval is not necessary. ID Date Data Source [id number] 12/27/2019 09:12:00 AM EST [facility]) Name Value Range Interpretation Code Description Data Madyson rce(s) Supporting Document(s) Microscopic observation [Identifier] in Unspecified specimen by Non- gynecological cytology method Laboratory test result [facility] ([facility]) will discuss at follow-up ID Date Data Source [id number] 12/27/2019 09:04:00 AM EST [facility] ([facility]) Name Value Range Interpretation Code Description Data Madyson rce(s) Supporting Document(s) Glucose [Mass/volume] in Capillary blood by Glucometer 176 mg/dL 83-110 Above high normal [facility] ([facility]) Doctor Notified ID Date Data Source [id number] 12/27/2019 08:52:00 AM EST [facility] ([facility]) Name Value Range Interpretation Code Description Data Madyson rce(s) Supporting Document(s) Microscopic observation [Identifier] in Unspecified specimen by Non- gynecological cytology method Laboratory test result [facility] ([facility]) SPECIMEN: Bronchial brushing (right lower lobe) [place] in vial and prepared slides received SPECIMEN ADEQUACY: Satisfactory for evaluation CATEGORIZATION: Positive for Malignancy DESCRIPTIONS: Small groups and single malignant cells noted exhibiting nuclei of varying size with multiple prominent nucleoli. The background consists of scattered lymphocytes and blood. COMMENTS: See also report [id number] 4/TR 12/28/2019914 Signed FIORELLA ERNANDEZ(ASCP) 12/28/2019 0752 (Prelim) Signed Isabella Mckeon MD 12/28/2019914 ID Date Data Source [id number] 12/27/2019 08:51:00 AM EST [facility] ([facility]) Name Value Range Interpretation Code Description Data Madyson rce(s) Supporting Document(s) Microscopic observation [Identifier] in Unspecified specimen by Non- gynecological cytology method Laboratory test result [facility] ([facility]) SPECIMEN: FNA Subcarinal lymp h node Cytolyt and prepared slides received SPECIMEN ADEQUACY: Satisfactory for evaluation CATEGORIZATION: Positive for Malignancy DESCRIPTIONS: Specimen consists of groups and single malignant cells exhibiting variation in nuclear size and prominent multiple nucleoli. COMMENTS: Findings are consistent with metastatic NSCLC, see also report [id number] 4/TR 12/28/2019913 Signed FIORELLA ERNANDEZ CT(ASCP) 12/28/2019 0702 (Prelim) Signed Isabella Mckeon MD 12/28/2019913 ID Date Data Source [id number] 12/27/2019 08:38:00 AM EST [facility] ([facility]) Name Value Range Interpretation Code Description Data Madyson rce(s) Supporting Document(s) Surgical pathology study Laboratory test result [facility]) Addendum 1 Entered: 01/10/2020-0805 PD-L1 KEYTRUDA shows tumor proportion score of 80%/High expression. See complete report from [facility]. Negative EGFR Negative for KRAS Negative for BRAF Negative for ALK Negative for ROS1 See complete reports from [facility], scanned in EMR under pathology module. 01/10/2020804 Addendum Signed____ Isabella Mckeon MD 01/10/2020804 FINAL DIAGNOSIS Right lung, lower lobe, biopsy: Poorly differentiated/high grade adenocarcinoma. TTF-1 is positive in tumor cells and P40 stain is negative. See note. NOTE: The unstained slides were sent for PD-L1 testing to [facility] and the tissue block to [facility] for molecular test panel. Addendum with results will follow. 4/TR 12/28/2019 - 1252 CLINICAL DIAGNOSIS Abnormal x-ray 12/27/20191506 GROSS DIAGNOSIS Received in formalin labeled "right lower lobe" is a bag containing a 0.8 x 0.4 x 0.2 cm aggregate of pale whi te and red fragments. All in one. - 12/27/20191506 Signed Isabella Mckeon MD 12/28/2019 1252 ID Date Data Source [id number] 12/27/2019 07:15:00 AM EST [facility] [facility] ([facility], ) Name Value Range Interpretation Code Description Data Madyson rce(s) Supporting Document(s) Glucose [Mass/volume] in Capillary blood by Glucometer 152 mg/dL 83-110 Above high normal [facility] ([facility]) ID Date Data Source [id number] 12/27/2019 07:13:00 AM EST [facility] ([facility]) Name Value Range Interpretation Code Description Data Madyson rce(s) Supporting Document(s) Gram Stain Laboratory test result Normal (applies to non-n umeric results) [facility], ) MANY WBCS NO ORGANISMS SEEN Bal Culture Laboratory test result Normal (applies to non- numeric results) [facility], ) FULL REPORT IN LAB NOTES (eCW and [facility] ). NO GROWTH AEROBICALLY ID Date Data Source [id number] 01/09/2020 11:59:00 AM [facility] Anatomic Molecular Pathology ReportName: CLAY VALENZUELAJamesN: [id number] Number: [id number] Date: 12/27/2019 00:00Received Date: 12/29/2019 14:28Physician(s): BRIANA HUGHES MD Haghir, Shahandeh MDCopy To:BRIANA HUGHES MDSpecimen(s) ReceivedA: Right lung, lower lobe, Formalin Block [id number] received from [facility] in [place], [place] ROS1 by FISHDiagnosisTEST:ROS1 gene rearrangements by [...] performed on paraffin embedded NSCLC utilizing thecombined [employer] Molecular LSI ROS1(Farnaz) and ROS1(Tel) ROS1 Probes: 1)3'-ROS1(Farnaz), 557 kb, labeled with SpectrumGreen, and 2) 5'-ROS1(Tel),317kb, labeled with SpectrumOrange. Tumor cells with no SYT8atxlpmatmcektk have 2 yellow signals (fused orange and [...] and its performance characteristics weredetermined by the [facility],and it has been authorized for clinical use by [facility]. The test has not been cleared or approved by the U.S. Food andDrug Administration. The analyte specific reagents used in this assay donot require FDA approval. Processed at [facility], [address] [place] [address] and reported at [facility], [address] [place] [address].REFERENCES: 1. ALEM Che, Ava AT, Elba GALVAN et al. Identifying and Targeting XDN1Hxwl Fusions in NonSmall Cell Lung Cancer. Clin Cancer Res 2012; 18(17);67314056.2. Carlin, [place] AT. Novel Targets in Non-Small Cell Lung Cancer:ROS-1 and RET fusions. The Oncologist. 2013;18:865- 875.This report may include one or more immunohistochemical stain results thatuse analyte specific reagents. All positive and negative controls havebeen reviewed by the attending pathologist and are satisfactory. The testswere developed and their performance characteristics determined by [facility] Path[facility] department. They have not been cleared or approved by the USFood and Drug Administration. The FDA has determined that such clearanceor approval is not necessary. Name Value Range Interpretation Code Description Data Madyson rce(s) Supporting Document(s) ID Date Data Source [id number] 01/09/2020 11:58:00 AM [facility] Anatomic Molecular Pathology ReportName: FELIX VALENZUELA: [id number] Number: [id number] Date: 12/27/2019 00:00Received Date: 12/29/2019 14:26Physician(s): BRIANA HUGHES MD Haghir, Shahandeh MDCopy To:BRIANA HUGHES MDSpecimen(s) ReceivedA: Right lung, lower lobe, Formalin Block [id number] received from [facility] in [place], [place], ALK by FISHDiagnosisTEST:ALK gene rearrangements by [...] is performed on paraffin embedded NSCLC utilizing theChroma Therapeutics Molecular ALK Break Apart FISH Probe Kit. [...] the special procedure laboratory of Department of Pathology,[facility]. Processed at [facility], [address] [place] [address] and reported at [facility], [address] [place] [address].This report may include one or more immunohistochemical stain results thatuse analyte specific reagents. All positive and negative controls havebeen reviewed by the attending pathologist and are satisfactory. The testswere developed and their performance characteristics determined by [facility] Path[facility] department. They have not been cleared or approved by the USFood and Drug Administration. The FDA has determined that such clearanceor approval is not necessary. Name Value Range Interpretation Code Description Data Madyson rce(s) Supporting Document(s) ID Date Data Source [id number] 01/08/2020 09:28:00 AM [facility] Anatomic Molecular Pathology ReportName: CLAY VALENZUELAJamesN: [id number] Number: [id number] Date: 12/27/2019 00:00Received Date: 12/29/2019 14:30Physician(s): BRIANA HUGHES MD Haghir, Shahandeh MDCopy To:BRIANA HUGHES MDSpecimen(s) ReceivedA: Right lung, lower lobe, Formalin Block [id number] received from [facility] in [place], [place] KRAS Mutation AnalysisDiagnosisTEST:KRAS gene mutations by [...] Balderas M.D. Attending Pathologist 01/08/2020 09:28:14Reported at [address] [place] [address]. Gross DescriptionMETHODOLOGY: The therascreen KRAS RGQ PCR Kit is a real-time qualitative PCR assayused on the [employer] instrument for the detection of seven somaticmutations [...] Herrera, Prince SANDHU, Lynn MR, et al. [place] Societyof Clinical Oncology provisional clinical opinion: testing for KRAS genemutations in patients with metastatic colorectal carcinoma to predictresponse to anti-epidermal growth factor receptor monoclonal antibodytherapy. J Clin Oncol 27:2901-8584, 2009. 2. Karla Yanse , Sophie Ferguson , VIKTORIYA Scott, et al.Biomarkers predicting clinical outcome of epidermal growth factor receptortargeted therapy in metastatic colorectal cancer. J Natl Cancer Dnbo749:49562031, 2009.This report may include one or more immunohistochemical stain results thatuse analyte specific reagents. All positive and negative controls havebeen reviewed by the attending pathologist and are satisfactory. The testswere developed and their performance characteristics determined by [facility] Path[facility]. They have not been cleared or approved by the USFood and Drug Administration. The FDA has determined that such clearanceor approval is not necessary. Name Value Range Interpretation Code Description Data Madyson rce(s) Supporting Document(s) ID Date Data Source [id number] 01/08/2020 09:26:00 AM [facility] Anatomic Molecular Pathology ReportName: FAUSTINO VALENZUELAN: [id number] Number: [id number] Date: 12/27/2019 00:00Received Date: 12/29/2019 14:29Physician(s): BRIANA HUGHES MD Haghir, Shahandeh MDCopy To:BRIANA HUGHES MDSpecimen(s) ReceivedA: Right lung, lower lobe, Formalin Block [id number] received from [facility] in [place], [place] EGFRDiagnosisTEST: EGFR gene mutations (exon 19 deletions, L858R, G719A, T790M, S768I,exon 20 insertions, L861Q) by [employer] RGQ real-time PCR RESULTS: An EGFR mutation is not detected.INTERPRETATION: NEGATIVE FOR EGFR GENE MUTATION.This test is FDA approved and intended to be used to select patients withnon-small cell lung cancer for whom EGFR tyrosine kinase inhibitor (TKI),such as afatinib, is indicated. Presence of exon 19 deletions, exon 62U632W or L861Q, exon 18 G719A or exon [...] Balderas M.D. Attending Pathologist 01/08/2020 09:26:13Reported at [address] [place] [id number]. Gross DescriptionMETHODOLOGY:The therascreen EGFR RGQ PCR Kit ([employer], [place], [place]) is a real-timequalitative PCR assay used on the [employer] instrument for thedetection of seven types of [...] factor receptormutations in lung cancer. Nature Review/Cancer. 2007;0989-3291.This report may include one or more immunohistochemical stain results thatuse analyte specific reagents. All positive and negative controls havebeen reviewed by the attending pathologist and are satisfactory. The testswere developed and their performance characteristics determined by [facility] Path[facility] department. They have not been cleared or approved by the USFood and Drug Administration. The FDA has determined that such clearanceor approval is not necessary. Name Value Range Interpretation Code Description Data Madyson rce(s) Supporting Document(s) ID Date Data Source [id number] 01/08/2020 09:23:00 AM [facility] Anatomic Molecular Pathology ReportName: FELIX VALENZUELA: [id number] Number: [id number] Date: 12/27/2019 00:00Received Date: 12/29/2019 14:32Physician(s): BRIANA HUGHES MD Haghir, Shahandeh MDC[facility] To:BRIANA HUGHES MDSpecimejavy(s) ReceivedA: Right lung, lower lobe, Formalin Block [id number] received from [facility] in [place], [place] BRAF Mutation AnalysisDiagnosisTESTS:BRAF V600E mutation (1799 [...] Balderas M.D. Attending Pathologist 01/08/2020 09:23:29Reported at [address] [place] [address]. Gross DescriptionMETHODOLOGY:BRAF V600E(1799 T>A) mutation at exon [...] amounts of PCR products, and analyzed by Cub[employer] Q real timeinstrument. The analytical sensitivity (or minimum percentage of mutantDNA needed) is approximately 10% given sufficient DNA input. Test development and its performance characteristics were determined bythe [facility], and has beenauthorized for clinical use by [facility]. Thetest has not been cleared or approved by the U.S. Food and DrugAdministration. The analyte specific reagents used in this assay do notrequire FDA approval. REFERENCES: 1. Gisel Acosta, Sierra Cooper, et al. Detection of BRAF G167Jgfjmapmz in colorectal cancer-comparison of automatic sequencing and realtime chemistry methodology. J Mol Diagn. 2006; 8:854519.2. Bora L, Tip TJ, Ella N, et al. BRAF mutation analysis in fineneedle aspiration (FNA) cytology of the thyroid. Diagn Mol Pathol.2006;15:493690.3. Machelle PK, Mesha ME, Caron M, et al. Clinical characteristics ofpatients with lung adenocarcinomas harboring BRAF mutations. J Clin Oncol.2011;29:4477-2389.This report may include one or more immunohistochemical stain results thatuse analyte specific reagents. All positive and negative controls havebeen reviewed by the attending pathologist and are satisfactory. The testswere developed and their performance characteristics determined by [facility] Pathology department. They have not been cleared or approved by the USFood and Drug Administration. The FDA has determined that such clearanceor approval is not necessary. Name Value Range Interpretation Code Description Data Madyson rce(s) Supporting Document(s) ID Date Data Source [id number] 12/22/2019 01:00:00 PM EDT [facility] Name Value Range Interpretation Code Description Data Madyson rce(s) Supporting Document(s) SARS coronavirus 2 RNA [facility] This lab was ordered by [facility] and reported by [facility]. ID Date Data Source [id number] 12/07/2019 10:38:00 AM EDT [facility] ([facility], ) Name Value Range Interpretation Code Description Data Madyson rce(s) Supporting Document(s) Glucose, Fasting 52 mg/dL 70-100 Below low normal [facility] ([facility], ) Creatinine For GFR 0.47 mg/dL 0.55-1.30 Below low normal [facility] ([facility]) Blood Urea Nitrogen 13 mg/dL 7-18 Normal (applies to non-nume blaire results) [facility] ([facility]) Glomerular Filtration Rate Laboratory test result Normal (applies to non- numeric results) [facility]) <content>Units are mL/min/1.73 m2</content>
<content></content>
<content>Chronic Kidney Disease Staging per NKF:</content>
<content></content>
<content>Stage I & II GFR >=60 Normal to Mildly Decreased</content>
<content>Stage III GFR 30- 59 Moderately Decreased</content>
<content>Stage IV GFR 15-29 Severely Decreased</content>
<content>Stage V GFR <15 Very Little GFR Left</content>
<content>ESRD GFR <15 on RN DIALYSIS</content>
<content></content> Sodium Level 139 meq/L 136-145 Normal (applies to non-numeric res ults) [facility] ([facility]) Chloride Level 103 meq/L 98-107 Normal (applies to non-numeric r esults) [facility] ([facility]) Carbon Dioxide Level 32 meq/L 21-32 Normal (applies to non-num tyrese results) [facility] ([facility]) Potassium Serum 4.2 meq/L 3.5-5.1 Normal (applies to non-numeric results) [facility] ([facility]) Anion Gap 4 meq/L 8-16 Below low normal [facility] ( [facility]) Calcium Level 9.6 mg/dL 8.8-10.2 Normal (applies to non-numeric re sults) [facility]) ID Date Data Source [id number] 12/07/2019 10:38:00 AM EDT [facility] ([facility]) Name Value Range Interpretation Code Description Data Madyson rce(s) Supporting Document(s) Prothrombin Time 13.1 s 12.5-14.3 Normal (applies to non-numeric results) [facility] ([facility]) Partial Thromboplastin Time 34.0 s 24.2-38.5 Norm al (applies to non-numeric results) [facility] ([facility]) Inr 0.98 Normal (applies to non-numeric resul ts) [facility] ([facility]) THERAPUTIC HUMAN INR VALUES INDICATIONS NORMAL RANGES PROPHYLAXIS/TREATMENT OF: VENOUS THROMBOSIS 2.0-3.0 PULMONARY EMBOLISM 2.0-3.0 PREVENTION OF SYSTEMIC EMBOLISM FROM: TISSUE HEART VALVES 2.0-3.0 ACUTE MYOCARDIAL INFARCTION 2.0-3.0 VALVULAR HEART DISEASE 2.0-3.0 ATRIAL FIBRILLATION 2.0-3.0 MECHANICAL VALVES(HIGH RISK) 2.5-3.5 RECURRENT MYOCARDIAL INFARCTION 2.5-3.5 ID Date Data Source [id number] 12/07/2019 10:38:00 AM EDT [facility] ([facility]) Name Value Range Interpretation Code Description Data Madyson rce(s) Supporting Document(s) aPTT in Platelet poor plasma by Coagulation assay Laboratory test res ult [facility] ([facility]) Platelets [#/volume] in Blood by Automated count 281 10 150-450 Normal (applies to non-numeric results) [facility]) ID Date Data Source [id number] 12/07/2019 09:16:00 AM EDT [facility] ([facility]) Name Value Range Interpretation Code Description Data Madyson rce(s) Supporting Document(s) PDFReport Laboratory test result [facility] ([facility]) FVC-Pre 1.53 L [facility] ([facility]) FVC-Pred 2.81 L [facility] ([facility]) FVC-%Pred-Pre 54 L [facility] ([facility]) FVC-LLN 2.15 L [facility] ([facility]) Fev1-Pre 1.21 L [facility] ([facility]) Fev1-Pred 2.13 L [facility] ([facility]) Fev1-%Pred-Pre 56 L [facility] Fev1-LLN 1.57 L [facility] ([facility], ) Fev6-Pred 2.69 L [facility] ([facility]) Fev6-Pre 1.53 L [facility] ([facility]) Fev6-%Pred-Pre 56 L [facility] ([facility]) Fev6-LLN 2.04 L [facility] ([facility]) Fme9gsn-Bycr 76 % [facility] ([facility]) Jvs2yne-%Pred-Pre 103 % [facility] ([facility]) Nfi0sfc-Vgk 79 % [facility] ([facility]) Qkj7hjw-Fbi 100 % [facility] ([facility]) Zmv3mza-Htwq 95 % [facility] ([facility]) Twn0dav-CNL 66 % [facility] ([facility]) Jti6vkv-%Pred-Pre 104 % [facility] ([facility]) FEFMax-Pred 5.42 L/E/sec [facility] ([facility]) FEFMax-Pre 3.58 L/E/sec [facility] ([facility]) FEFMax-%Pred-Pre 66 L/E/sec [facility] ([facility]) FEFMax-LLN 3.78 L/E/sec [facility] ([facility]) Iee2097-Ynw 1.06 L/E/sec [facility] ([facility], ) Nte9616-%Pred-Pre 58 L/E/sec [facility] ([facility]) Sdk5016-Vxgv 1.81 L/E/sec [facility] ([facility]) ExpTime-Pre 5.52 sec [facility] ([facility]) Vdn3191-XRG 0.63 L/E/sec [facility] ([facility]) Fle5bmo4-Adlb 79 % [facility] ([facility]) Itt1jbb5-WYQ 70 % [facility] ([facility]) Pom2awi2-Kgl 79 % [facility] ([facility], ) Mvs9pww1-%Pred-Pre 99 % [facility] ([facility], ) ID Date Data Source [id number] LEVEL 11/27/2019 04:24:18 AM EDT eCW1 ([facility]) Name Value Range Interpretation Code Description Data Madyson rce(s) Supporting Document(s) 2.0 MAGNESIUM LEVEL eCW1 ([facility]) ID Date Data Source NT-PRO BNP 11/27/2019 04:24:14 AM EDT eCW1 ([facility]) Name Value Range Interpretation Code Description Data Madyson rce(s) Supporting Document(s) 138 NT[facility]PRO [facility] ID Date Data Source CBC with Differential 11/27/2019 04:24:09 AM EDT eCW1 ([facility]) Name Value Range Interpretation Code Description Data Madyson rce(s) Supporting Document(s) 11.0 WHITE BLOOD COUNT eCW1 ([facility]) 3.76 RED BLOOD COUNT eCW1 ([facility]) 34.7 HEMATOCRIT eCW1 ([facility]) 10.8 HEMOGLOBIN eCW1 ([facility]) 28.7 MEAN CORPUSCULAR HEMOGLOBIN eC W1 ([facility]) 31.1 MEAN CORPUSCULAR HGB CONC eCW1 ([facility]) 92.3 MEAN CORPUSCULAR VOLUME eCW1 ( [facility]) 276 PLATELET COUNT, AUTOMATED eCW1 ([facility]) 14.3 RED CELL DISTRIBUTION WIDTH eC W1 ([facility]) 61.9 NEUTROPHILS % eCW1 ([facility]) 7.9 MONO % [facility]CW1 ([facility]) 21.6 LYMPH % eCW1 ([facility]) 7.8 EOS % eCW1 ([facility]) 6.8 NEUTROPHILS # eCW1 ([facility]) 0.4 BASO % eCW1 ([facility]) 2.4 LYMPH # eCW1 ([facility]) 0.9 MONO # eCW1 ([facility]) 0.9 EOS # eCW1 ([facility]) 0.0 BASO # eCW1 ([facility]) Procedure Social History Code Duration Value Status Description Data Source(s ) Smoking 01/11/2020 12:00:00 AM EST Patient is a former smoker completed Patient is a former smoker [facility] ([facility] ) Smoking 12/06/2019 12:00:00 AM EDT Former Smoker completed Former Smoker eCW1 ([facility]) Smoking 12/06/2019 12:00:00 AM EDT Former Smoker completed Former Smoker eCW1 ([facility]) Smoking 12/06/2019 12:00:00 AM EDT Former Smoker completed Former Smoker eCW1 ([facility]) Smoking 12/06/2019 12:00:00 AM EDT Former Smoker completed Former Smoker eCW1 ([facility]) Smoking 12/06/2019 12:00:00 AM EDT Former Smoker completed Former Smoker eCW1 ([facility]) Smoking 12/06/2019 12:00:00 AM EDT Former Smoker completed Former Smoker eCW1 ([facility]) Smoking 12/06/2019 12:00:00 AM EDT Former Smoker completed Former Smoker eCW1 ([facility]) Smoking 12/06/2019 12:00:00 AM EDT Former Smoker completed Former Smoker eCW1 ([facility]) Smoking 12/06/2019 12:00:00 AM EDT Former Smoker completed Former Smoker eCW1 ([facility]) Smoking 12/06/2019 12:00:00 AM EDT Former Smoker completed Former Smoker eCW1 ([facility]) Smoking 12/06/2019 12:00:00 AM EDT Former Smoker completed Former Smoker eCW1 ([facility]) Smoking 12/06/2019 12:00:00 AM EDT Former Smoker completed Former Smoker eCW1 ([facility]) Smoking 12/06/2019 12:00:00 AM EDT Former Smoker completed Former Smoker eCW1 ([facility]) Smoking 12/06/2019 12:00:00 AM EDT Former Smoker completed Former Smoker eCW1 ([facility]) Smoking 12/06/2019 12:00:00 AM EDT Former Smoker completed Former Smoker eCW1 ([facility]) Smoking 12/06/2019 12:00:00 AM EDT Former Smoker completed Former Smoker eCW1 ([facility]) Smoking 12/06/2019 12:00:00 AM EDT Former Smoker completed Former Smoker eCW1 ([facility]) Smoking 12/06/2019 12:00:00 AM EDT Former Smoker completed Former Smoker eCW1 ([facility]) Smoking 12/06/2019 12:00:00 AM EDT Former Smoker completed Former Smoker eCW1 ([facility]) Smoking 11/27/2019 12:00:00 AM EDT Former Smoker completed Former Smoker eCW1 ([facility]) Smoking 08/04/2019 12:00:00 AM EDT Former Smoker completed Former Smoker eCW1 ([facility]) Smoking 08/04/2019 12:00:00 AM EDT Former Smoker completed Former Smoker eCW1 ([facility]) Smoking 08/04/2019 12:00:00 AM EDT Former Smoker completed Former Smoker eCW1 ([facility]) Smoking 07/28/2019 12:34:53 PM EDT Ex-smoker (finding) complet ed Ex-smoker (finding) WES (Bebeto Mcfadden MD [facility]) Smoking 05/22/2019 05:14:12 PM EDT Ex-smoker (finding) complet ed Ex-smoker (finding) WES (Bebeto Mcfadden MD [facility]) Smoking 05/22/2019 05:06:57 PM EDT Ex-smoker (finding) complet ed Ex-smoker (finding) WES (Bebeto Mcfadden MD [facility]) Smoking 05/22/2019 04:59:57 PM EDT Ex-smoker (finding) complet ed Ex-smoker (finding) WES (Bebeto Mcfadden MD [facility]) Smoking 05/22/2019 04:50:10 PM EDT Ex-smoker (finding) complet ed Ex-smoker (finding) WES (Bebeto Mcfadden MD [facility]) Smoking 05/22/2019 04:17:00 PM EDT Ex-smoker (finding) complet ed Ex-smoker (finding) WES (Bebeto Mcfadden MD [facility]) Smoking 05/22/2019 04:03:26 PM EDT Ex-smoker (finding) complet ed Ex-smoker (finding) WES (Bebeto Mcfadden MD [facility]) Smoking 05/22/2019 03:50:28 PM EDT Ex-smoker (finding) complet ed Ex-smoker (finding) WES (Bebeto Mcfadden MD [facility]) Vital Signs ID Date Data Source UNK Name Value Range Interpretation Code Description Data Source(s) Body surface area Derived from formula 1.67 m2 1.67 m2 [facility] ([facility]) Body weight 64.865 kg 64.865 kg [facility] ([facility]) [place] body weight 110 [lb_av] 110 [lb_av] [facility] ([facility]) Body mass index (BMI) [Ratio] 25.7 kg/m2 25.7 k g/m2 [facility] ([facility]) Body weight 143.00 [lb_av] 143.00 [lb_av] [facility] T ([facility]) Body height 62.5 [in_i] 62.5 [in_i] [facility] ([facility]) 5'2.50" Oxygen saturation in Arterial blood by Pulse oximetry 97 % 97 % [facility] ([facility]) Heart rate 97 /min 97 /min [facility] ([facility]) Diastolic blood pressure 70 mm[Hg] 70 mm[Hg] [facility] ([facility]) Systolic blood pressure 122 mm[Hg] 122 mm[Hg] [facility] Body surface area Derived from formula 1.67 m2 1.67 m2 [facility] ([facility]) Body weight 64.638 kg 64.638 kg [facility] ([facility]) [place] body weight 110 [lb_av] 110 [lb_av] [facility] T ([facility]) Body mass index (BMI) [Ratio] 25.6 kg/m2 25.6 k g/m2 [facility] ([facility]) Body weight 142.50 [lb_av] 142.50 [lb_av] [facility] T ([facility]) Body height 62.5 [in_i] 62.5 [in_i] [facility] ([facility]) 5'2.50" Body temperature 96.8 [degF] 96.8 [degF] [facility] ([facility]) Oxygen saturation in Arterial blood by Pulse oximetry 96 % 96 % [facility] ([facility]) Heart rate 100 /min 100 /min [facility] ([facility]) Diastolic blood pressure 64 mm[Hg] 64 mm[Hg] [facility] ([facility]) Systolic blood pressure 122 mm[Hg] 122 mm[Hg] [facility] ([facility]) Body weight 65.999 kg 65.999 kg [facility] ([facility]) [place] body weight 110 [lb_av] 110 [lb_av] [facility] [place] Body mass index (BMI) [Ratio] 26.2 kg/m2 26.2 k g/m2 [facility] ([facility]) Body weight 145.50 [lb_av] 145.50 [lb_av] [facility] [place] ([facility]) Body height 62.5 [in_i] 62.5 [in_i] [facility] ([facility]) 5'2.50" Oxygen saturation in Arterial blood by Pulse oximetry 95 % 95 % [facility] ([facility]) Heart rate 87 /min 87 /min [facility] ([facility]) Diastolic blood pressure 60 mm[Hg] 60 mm[Hg] [facility] ([facility]) Systolic blood pressure 106 mm[Hg] 106 mm[Hg] [facility] Diastolic blood pressure 74 mm[Hg] 74 mm[Hg] eCW1 ([facility]) Systolic blood pressure 126 mm[Hg] 126 mm[Hg] e CW1 ([facility]) Body temperature 97.1 [degF] 97.1 [degF] eCW1 ( [facility]) Respiratory rate 18 /min 18 /min eCW1 ([facility]) Heart rate 90 /min 90 /min eCW1 ([facility]) Body mass index (BMI) [Ratio] 26.42 kg/m2 26.42 kg/m2 eCW1 ([facility]) Body height 62.5 [in_i] 62.5 [in_i] eCW1 ([facility]) Body weight 146.8 [lb_av] 146.8 [lb_av] eCW1 ([facility]) Diastolic blood pressure 66 mm[Hg] 66 mm[Hg] eCW1 ([facility]) Systolic blood pressure 110 mm[Hg] 110 mm[Hg] e CW1 ([facility]) Body temperature 97.1 [degF] 97.1 [degF] eCW1 ( [facility]) Respiratory rate 18 /min 18 /min eCW1 ([facility]) Heart rate 88 /min 88 /min eCW1 ([facility]) Body mass index (BMI) [Ratio] 26.85 kg/m2 26.85 kg/m2 eCW1 ([facility]) Body height 62.5 [in_i] 62.5 [in_i] eCW1 ([facility]) Body weight 149.2 [lb_av] 149.2 [lb_av] eCW1 ([facility]) Diastolic blood pressure 66 mm[Hg] 66 mm[Hg] eCW1 ([facility]) Systolic blood pressure 118 mm[Hg] 118 mm[Hg] e CW1 ([facility]) Body temperature 97.5 [degF] 97.5 [degF] eCW1 ( [facility]) Respiratory rate 18 /min 18 /min eCW1 ([facility]) Heart rate 100 /min 100 /min eCW1 ([facility]) Body mass index (BMI) [Ratio] 28.00 kg/m2 28.00 kg/m2 eCW1 ([facility]) Body height 62.5 [in_i] 62.5 [in_i] eCW1 ([facility]) Body weight 155.6 [lb_av] 155.6 [lb_av] eCW1 ([facility]) Diastolic blood pressure 60 mm[Hg] 60 mm[Hg] eCW1 ([facility]) Systolic blood pressure 112 mm[Hg] 112 mm[Hg] e CW1 ([facility]) Body temperature 98.3 [degF] 98.3 [degF] eCW1 ( [facility]) Respiratory rate 18 /min 18 /min eCW1 ([facility]) Heart rate 96 /min 96 /min eCW1 ([facility]) Body mass index (BMI) [Ratio] 28.11 kg/m2 28.11 kg/m2 eCW1 ([facility]) Body height 62.5 [in_us] 62.5 [in_us] eCW1 ([facility]) Body weight Measured 156.2 [lb_av] 156.2 [lb_av ] eCW1 ([facility]) Respiratory rate 16 /min 16 /min [facility] ( [facility]) Heart rate 64 /min 64 /min [facility] ([facility] ) Diastolic blood pressure 60 mm[Hg] 60 mm[Hg] [facility] ([facility]) Systolic blood pressure 110 mm[Hg] 110 mm[Hg] M EDENT ([facility]) Respiratory rate 16 /min 16 /min [facility] ( [facility]) Heart rate 76 /min 76 /min [facility] ([facility]) Diastolic blood pressure 80 mm[Hg] 80 mm[Hg] [facility] ([facility]) Systolic blood pressure 110 mm[Hg] 110 mm[Hg] M EDENT ([facility] ) Patient Treatment Plan of Care Planned Activity Planned Date Details Description Data Source (s) Acetaminophen 325 MG / Hydrocodone Bitartrate 5 MG Ora l Tablet 02/02/2020 12:00:00 AM EST eCW1 ([facility]) Acetaminophen 325 MG / Hydrocodone Bitartrate 5 MG Ora l Tablet 02/02/2020 12:00:00 AM EST eCW1 ([facility]) Acetaminophen 325 MG / Hydrocodone Bitartrate 5 MG Ora l Tablet 02/02/2020 12:00:00 AM EST eCW1 ([facility]) Acetaminophen 325 MG / Hydrocodone Bitartrate 5 MG Ora l Tablet 02/02/2020 12:00:00 AM EST eCW1 ([facility]) Acetaminophen 325 MG / Hydrocodone Bitartrate 5 MG Ora l Tablet 02/02/2020 12:00:00 AM EST eCW1 ([facility]) Acetaminophen 325 MG / Hydrocodone Bitartrate 5 MG Ora l Tablet 02/02/2020 12:00:00 AM EST eCW1 ([facility]) Acetaminophen 325 MG / Hydrocodone Bitartrate 5 MG Ora l Tablet 02/02/2020 12:00:00 AM EST eCW1 ([facility]) Acetaminophen 325 MG / Hydrocodone Bitartrate 5 MG Ora l Tablet 02/02/2020 12:00:00 AM EST eCW1 ([facility]) Acetaminophen 325 MG / Hydrocodone Bitartrate 5 MG Ora l Tablet 02/02/2020 12:00:00 AM EST eCW1 ([facility]) Acetaminophen 325 MG / Hydrocodone Bitartrate 5 MG Ora l Tablet 01/02/2020 12:00:00 AM EST eCW1 ([facility]) Acetaminophen 325 MG / Hydrocodone Bitartrate 5 MG Ora l Tablet 01/02/2020 12:00:00 AM EST eCW1 ([facility]) Acetaminophen 325 MG / Hydrocodone Bitartrate 5 MG Ora l Tablet 12/15/2019 12:00:00 AM EDT eCW1 ([facility]) Acetaminophen 325 MG / Hydrocodone Bitartrate 5 MG Ora l Tablet 12/15/2019 12:00:00 AM EDT eCW1 ([facility]) Acetaminophen 325 MG / Hydrocodone Bitartrate 5 MG Ora l Tablet 12/15/2019 12:00:00 AM EDT eCW1 ([facility]) Acetaminophen 325 MG / Hydrocodone Bitartrate 5 MG Ora l Tablet 12/15/2019 12:00:00 AM EDT eCW1 ([facility]) Albuterol Sulfate 108 (90 Base) MCG/ACT 11/27/2019 12:00:00 AM EDT eCW1 ([facility]) Prednisone 20 MG Oral Tablet 11/27/2019 12:00:00 AM EDT eCW1 ([facility]) besifloxacin 6 MG/ML Ophthalmic Suspension [Besivance] 06/03/2018 12:00:00 AM EDT [facility] (Bebeto Mcfadden MD [facility]) BromSite 0.075% Ophthalmic Solution 06/03/2018 12:00:00 AM EDT [facility] (Bebeto Mcfadden MD [facility]) prednisolone acetate 10 MG/ML Ophthalmic Suspension [P red Forte] 06/03/2018 12:00:00 AM EDT [facility] (Bebeto Mcfadden MD [facility])
[2020-03-25 17:18] LABS: BLOOD UREA NITROGEN 29 MG/DL (7-18); CALCIUM LEVEL 10.3 MG/DL (8.8-10.2); CARBON DIOXIDE LEVEL 31 MEQ/L (21-32); CHLORIDE LEVEL 99 MEQ/L (98-107); CK-MB VALUE MASS < 1.0 NG/ML (<3.6); CPK CREATINE PHOSPHOKINASE 40 U/L (26-192); CREATININE FOR GFR 0.57 MG/DL (0.55-1.30); GLOMERULAR FILTRATION RATE > 60.0 (>39); GLUCOSE, FASTING 164 MG/DL (70-100); POTASSIUM SERUM 5.2 MEQ/L (3.5-5.1); SODIUM LEVEL 139 MEQ/L (136-145); TROPONIN I < 0.02 NG/ML (< 0.10)
[2020-03-25 17:20] LABS: BASO # 0.1 10^3/uL (0.0-0.2); BASO % 0.4 % (0.0-1.0); EOS # 1.4 10^3/uL (0.0-0.5); EOS % 7.4 % (0.0-3.0); HEMOGLOBIN 12.8 g/dl (12.0-15.5); LYMPH # 0.8 10^3/uL (1.5-5.0); LYMPH % 4.1 % (24.0-44.0); MEAN CORPUSCULAR HEMOGLOBIN 25.9 pg (27.0-33.0); MEAN CORPUSCULAR HGB CONC 29.8 g/dl (32.0-36.5); MEAN CORPUSCULAR VOLUME 86.9 fl (80.0-96.0); MONO # 1.4 10^3/uL (0.0-0.8); MONO % 7.3 % (0.0-5.0); NEUTROPHILS # 14.9 10^3/uL (1.5-8.5); NEUTROPHILS % 79.4 % (36.0-66.0); PLATELET COUNT, AUTOMATED 317 10^3/uL (150-450); RED BLOOD COUNT 4.95 10^6/uL (4.00-5.40); WHITE BLOOD COUNT 18.8 10^3/uL (4.0-10.0)
[2020-03-25] MEDS ORDERED: NS 1,000 ML IV ONE (18:00)
[2020-03-25] MEDS ORDERED: OXYC1SOL3 PO (19:13)
[2020-03-25] MEDS ORDERED: MAGN400T3 PO (19:13)
[2020-03-25] MEDS ORDERED: FURO40TA2 PO (19:13)
[2020-03-25] MEDS ORDERED: MAGICMW SSP (19:13)
[2020-03-25] MEDS ORDERED: GLUCOSE 4GM CHEW TABLET PO PRN (19:45)
[2020-03-25] MEDS ORDERED: MOM 30ML SUSPENSION UDC PO PRN (19:45)
[2020-03-25] MEDS ORDERED: DEXTROSE 50% 50 ML SYRINGE IV PRN (19:45)
[2020-03-25] MEDS ORDERED: GLUCAGON INJ 1MG VIAL SC PRN (19:45)
[2020-03-25] MEDS ORDERED: MAALOX 30 ML SUSP *UDC PO PRN (19:45)
--- OUTSIDE RECORDS SUMMARY | 2020-03-25 20:20 | CCD ---
Author Author [facility] Organization [facility] Address Unknown Phone Unavailable Care Team Providers Care Import/Export Clerk Name Role Phone Jasiel Dela Cruz MD [...] [phone] YULIYA, A. ALICE DO Unavailable [phone] Nicole DE JESUS DO Unavailable [phone] Re-disclosure Warning The records that you are [...] is protected by Article 27-F of the [facility] Public Health law. If you continue you may have access to information: Regarding HIV / AIDS; Provided by facilities licensed or operated by the [facility] Office of Mental Health; or Provided by the [facility] Office for People With Developmental Disabilities. If such information is present, then the following [facility] mandated warning applies: This information [...] law may result in a fine or mcc sentence or both. A general authorization for the release of medical or other information is NOT sufficient authorization for further disc losure. Allergies and Adverse Reactions Type Description Substance Reaction Status Data Source(s ) aspirin Aspirin Aspirin Hives Active eCW1 ([facility]) Nickel Nickel Nickel Hives Active eCW1 ([facility]) Encounters Encounter Providers Location Date Indications Data Source(s ) Unknown [address] [facility] [address] 03/19/2020 12:00:00 AM EST eCW1 ([facility]) [place] [address] [facility] [address] 03/14/2020 12:00:00 AM EST eCW1 ([facility]) [place] [address] [facility] [address] 03/11/2020 12:00:00 AM EST eCW1 ([facility]) [place] [address] [facility] [address] 03/05/2020 12:00:00 AM EST eCW1 ([facility]) [place] [address] [facility] [address] 03/04/2020 12:00:00 AM EST eCW1 ([facility]) [place] [address] [facility] [address] 03/04/2020 12:00:00 AM EST eCW1 ([facility]) [place] [address] [facility] [address] 02/27/2020 12:00:00 AM EST eCW1 ([facility]) Unknown [address] [facility] [address] 02/21/2020 12:00:00 AM EST eCW1 ([facility]) Unknown [address] [facility] [address] 02/21/2020 12:00:00 AM EST eCW1 ([facility]) Unknown [address] [facility] [address] 02/14/2020 12:00:00 AM EST eCW1 ([facility]) Unknown [address] [facility] [address] 02/02/2020 12:00:00 AM EST eCW1 ([facility]) Outpatient Referrer: Jasiel [email or web address] 04/2019 12:00:00 AM EST - 01/25/2020 08:49:[address] [facility] Unknown [address] [facility] [address] 01/24/2020 12:00:00 AM EST eCW1 ([facility]) Outpatient Attender: Briana Hawk/Víctor/Garrison/Chandler ndl 01/11/2020 01:30:00 PM EST MEDENT ([facility]) Outpatient Attender: Briana Hawk/Víctor/Garrison/Chandler ndl 01/03/2020 12:30:00 PM EST MEDENT ([facility]) Unknown [address] [facility] [address] 01/02/2020 12:00:00 AM EST eCW1 ([facility]) Outpatient Admitter: Briana Hughes MDReferrer: Briana palafox MD 12/27/2019 12:00:00 AM EST Malignant neoplasm of unspecified part o f unspecified bronchus or lung [facility] Malignant neoplasm of unspecified part o f unspecified bronchus or lung Unknown [address] [facility] [address] 12/26/2019 12:00:00 AM EST eCW1 ([facility]) Unknown [address] [facility] [address] 12/22/2019 12:00:00 AM EDT eCW1 ([facility]) Unknown [address] [facility] [address] 12/20/2019 12:00:00 AM EDT eCW1 ([facility]) Unknown [address] [facility] [place] [address] 12/15/2019 12:00:00 AM EDT eCW1 ([facility]) Outpatient Attender: Jasiel Dela Cruz MD [email or web address] 11/23 12:00:00 AM EDT - 12/13/2019 11:05:[address] [facility] Outpatient Attender: Briana Hawk/Víctor/Garrison/Chandler ndl 12/07/2019 09:30:00 AM EDT MEDENT ([facility]) Office Visit, Est Pt., Level 3 PC [address] [place] [address] 12/06/2019 12:00:00 AM EDT eCW1 ([facility]) Unknown [address] [facility] [address] 12/06/2019 12:00:00 AM EDT eCW1 ([facility]) Office Visit, Est Pt., Level [address] [place] [address] 11/27/2019 12:00:00 AM EDT eCW1 ([facility]) Unknown [address] [facility] [address] 11/23/2019 12:00:00 AM EDT eCW1 ([facility]) Outpatient Attender: Carmen ALVARENGA Main office - [facility] 10/04/2019 08:15:00 AM EDT MEDENT ([facility], ) Unknown [address] [facility] [place] [address] 08/04/2019 12:00:00 AM EDT eCW1 ([facility]) Outpatient<td ID="encounterTypeDescripti onID0">1 Year Follow-Up</td><td>Alice De Jesus DO</td><td>Bebeto Valdivia MD [facility]</td><td>07/28/2019</td><td><content ID="encounterDiagnosisID0-0">Diabetes Mellitus Type 2 Without Complication</content>, <content ID="encounterDiagnosisID0-1">Dry Eye Syndrome</content>, <content ID="encounterDiagnosisID0-2">Pseudophakia</content>, <content ID="encounterDiagnosisID0-3">Assessment of Taking Medication For Diabetes Long- term Use of Oral Hypoglycemics</content>, <content ID="encounterDiagnosisID0- 4">Vitreous Disorders Degeneration</content></td> Attender: ALICE Vazquez MD [facility] 07/28/2019 07:20:00 AM EDT - 07/28/2019 07:47:00 AM EDT PseudophakiaVitreous Disorders Degenerat ionAssessment of Taking Medication For Diabetes Long-term Use of Oral HypoglycemicsDry Eye SyndromeDiabetes Mellitus Type 2 Without Complication W[facility] (Bebeto Mcfadden MD [facility]) Pseudophakia Vitreous Disorders Degeneration Assessment of Taking Medication For Diab etes Long-term Use of Oral Hypoglycemics Dry Eye Syndrome Diabetes Mellitus Type 2 Without Complic ation Outpatient [address] [facility] [place] [address] 07/20/2019 12:00:00 AM EDT eCW1 ([facility]) [facility] [address] [place] [address] [place] [address] 07/18/2019 12:00:00 AM EDT eCW1 ([facility]) [address] [place] [address] 07/10/2019 12:00:00 AM EDT eCW1 ([facility]) [address] [place] [address] 07/10/2019 12:00:00 AM EDT eCW1 ([facility]) [address] [place] [address] 07/10/2019 12:00:00 AM EDT eCW1 ([facility]) Outpatient Attender: Carmen ALVARENGA [facility] 06/27/2019 09:15:00 AM EDT MEDENT ([facility] ROCIO Frias) [address] [place] [address] 05/18/2019 12:00:00 AM EDT eCW1 ([facility]) Outpatient 05/09/2019 11:06:00 AM EDT [facility] [address] [place] [address] 03/24/2019 12:00:00 AM EST eCW1 ([facility]) Outpatient Attender: Carmen ALVARENGA [facility] 03/23/2019 10:00:00 AM EST MEDENT ([facility]) [address] [place] [address] 02/23/2019 12:00:00 AM EST eCW1 ([facility]) [facility] [place] [address] [facility] [address] 02/07/2019 12:00:00 AM EST eCW1 ([facility]) Outpatient Attender: Carmen ALVARENGA Main office - [facility] 02/03/2019 07:45:00 AM EST MEDENT ([facility], ) Immunizations Vaccine Date Status Description Data Source(s) New in 2011. IIV4 11/29/2019 02:34:00 PM EDT completed MEDENT ([facility], ) influenza, recombinant, quadrIvalent,injectable, prese rvative free 11/27/2019 01:05:00 PM EDT completed eCW1 ([facility]) influenza, recombinant, quadrIvalent,injectable, prese rvative free 11/27/2019 01:05:00 PM EDT completed eCW1 ([facility]) influenza, recombinant, quadrIvalent,injectable, prese rvative free 11/27/2019 01:05:00 PM EDT completed eCW1 ([facility]) influenza, recombinant, quadrIvalent,injectable, prese rvative free 11/27/2019 01:05:00 PM EDT completed eCW1 ([facility]) influenza, recombinant, quadrIvalent,injectable, prese rvative free 11/27/2019 01:05:00 PM EDT completed eCW1 ([facility]) influenza, recombinant, quadrIvalent,injectable, prese rvative free 11/27/2019 01:05:00 PM EDT completed eCW1 ([facility]) influenza, recombinant, quadrIvalent,injectable, prese rvative free 11/27/2019 01:05:00 PM EDT completed eCW1 ([facility]) influenza, recombinant, quadrIvalent,injectable, prese rvative free 11/27/2019 01:05:00 PM EDT completed eCW1 ([facility]) influenza, recombinant, quadrIvalent,injectable, prese rvative free 11/27/2019 01:05:00 PM EDT completed eCW1 ([facility]) influenza, recombinant, quadrIvalent,injectable, prese rvative free 11/27/2019 01:05:00 PM EDT completed eCW1 ([facility]) influenza, recombinant, quadrIvalent,injectable, prese rvative free 11/27/2019 01:05:00 PM EDT completed eCW1 ([facility]) influenza, recombinant, quadrIvalent,injectable, prese rvative free 11/27/2019 01:05:00 PM EDT completed eCW1 ([facility]) influenza, recombinant, quadrIvalent,injectable, prese rvative free 11/27/2019 01:05:00 PM EDT completed eCW1 ([facility]) influenza, recombinant, quadrIvalent,injectable, prese rvative free 11/27/2019 01:05:00 PM EDT completed eCW1 ([facility]) influenza, recombinant, quadrIvalent,injectable, prese rvative free 11/27/2019 01:05:00 PM EDT completed eCW1 ([facility]) influenza, recombinant, quadrIvalent,injectable, prese rvative free 11/27/2019 01:05:00 PM EDT completed eCW1 ([facility]) influenza, recombinant, quadrIvalent,injectable, prese rvative free 11/27/2019 01:05:00 PM EDT completed eCW1 ([facility]) influenza, recombinant, quadrIvalent,injectable, prese rvative free 11/27/2019 01:05:00 PM EDT completed eCW1 ([facility]) influenza, recombinant, quadrIvalent,injectable, prese rvative free 11/27/2019 01:05:00 PM EDT completed eCW1 ([facility]) influenza, recombinant, quadrIvalent,injectable, prese rvative free 11/27/2019 01:05:00 PM EDT completed eCW1 ([facility]) Medications Medication Brand Name Start Date Product Form Dose Route Admi nistrative Instructions Pharmacy Instructions Status Indications Reaction Description Data Source(s) Furosemide 40 MG Oral Tablet Furosemide 40 MG 03/14/2020 12:00:00 A M EST 1.0 {tablet} active Furosemide 40 MG eCW1 ( [facility]) Furosemide 40 MG Oral Tablet Furosemide 40 MG 03/14/2020 12:00:00 A M EST 1.0 {tablet} active Furosemide 40 MG eCW1 ( [facility]) Acetaminophen 325 MG / Hydrocodone Mariaelena trate 5 MG Oral Tablet Hydrocodone- Acetaminophen 5-325 MG Hydrocodone-Acetaminophen 5-325 MG 02/02/2020 12:00:00 AM EST 1.0 {tablet_as_needed} active Hydrocodone-Acetaminophen 5-325 MG eCW1 ([facility]) Acetaminophen 325 MG / Hydrocodone Mariaelena trate 5 MG Oral Tablet Hydrocodone- Acetaminophen 5-325 MG Hydrocodone-Acetaminophen 5-325 MG 02/02/2020 12:00:00 AM EST 1.0 {tablet_as_needed} active Hydrocodone-Acetaminophen 5-325 MG eCW1 ([facility]) Acetaminophen 325 MG / Hydrocodone Mariaelena trate 5 MG Oral Tablet Hydrocodone- Acetaminophen 5-325 MG Hydrocodone-Acetaminophen 5-325 MG 02/02/2020 12:00:00 AM EST 1.0 {tablet_as_needed} active Hydrocodone-Acetaminophen 5-325 MG eCW1 ([facility]) Acetaminophen 325 MG / Hydrocodone Mariaelena trate 5 MG Oral Tablet Hydrocodone- Acetaminophen 5-325 MG Hydrocodone-Acetaminophen 5-325 MG 02/02/2020 12:00:00 AM EST 1.0 {tablet_as_needed} active Hydrocodone-Acetaminophen 5-325 MG eCW1 ([facility]) Acetaminophen 325 MG / Hydrocodone Mariaelena trate 5 MG Oral Tablet Hydrocodone- Acetaminophen 5-325 MG Hydrocodone-Acetaminophen 5-325 MG 02/02/2020 12:00:00 AM EST 1.0 {tablet_as_needed} active Hydrocodone-Acetaminophen 5-325 MG eCW1 ([facility]) Acetaminophen 325 MG / Hydrocodone Mariaelena trate 5 MG Oral Tablet Hydrocodone- Acetaminophen 5-325 MG Hydrocodone-Acetaminophen 5-325 MG 02/02/2020 12:00:00 AM EST 1.0 {tablet_as_needed} active Hydrocodone-Acetaminophen 5-325 MG eCW1 ([facility]) Acetaminophen 325 MG / Hydrocodone Mariaelena trate 5 MG Oral Tablet Hydrocodone- Acetaminophen 5-325 MG Hydrocodone-Acetaminophen 5-325 MG 02/02/2020 12:00:00 AM EST 1.0 {tablet_as_needed} active Hydrocodone-Acetaminophen 5-325 MG eCW1 ([facility]) Acetaminophen 325 MG / Hydrocodone Mariaelena trate 5 MG Oral Tablet Hydrocodone- Acetaminophen 5-325 MG Hydrocodone-Acetaminophen 5-325 MG 02/02/2020 12:00:00 AM EST 1.0 {tablet_as_needed} active Hydrocodone-Acetaminophen 5-325 MG eCW1 ([facility]) Acetaminophen 325 MG / Hydrocodone Mariaelena trate 5 MG Oral Tablet Hydrocodone- Acetaminophen 5-325 MG Hydrocodone-Acetaminophen 5-325 MG 02/02/2020 12:00:00 AM EST 1.0 {tablet_as_needed} active Hydrocodone-Acetaminophen 5-325 MG eCW1 ([facility]) Acetaminophen 325 MG / Hydrocodone Mariaelena trate 5 MG Oral Tablet Hydrocodone- Acetaminophen 5-325 MG Hydrocodone-Acetaminophen 5-325 MG 02/02/2020 12:00:00 AM EST 1.0 {tablet_as_needed} active Hydrocodone-Acetaminophen 5-325 MG eCW1 ([facility]) Acetaminophen 325 MG / Hydrocodone Mariaelena trate 5 MG Oral Tablet Hydrocodone- Acetaminophen 5-325 MG Hydrocodone-Acetaminophen 5-325 MG 02/02/2020 12:00:00 AM EST 1.0 {tablet_as_needed} active Hydrocodone-Acetaminophen 5-325 MG eCW1 ([facility]) Furosemide 20 MG Oral Tablet Furosemide 01/23/2020 12:00:00 AM EST ORAL active MEDENT ([facility], ) Acetaminophen 325 MG / Hydrocodone Bitartrate 5 MG Ora l Tablet Hydrocodone-Acetaminophen 01/11/2020 12:00:00 AM EST ORAL active MEDENT ([facility], ) Acetaminophen 325 MG / Hydrocodone Mariaelena trate 5 MG Oral Tablet Hydrocodone- Acetaminophen 5-325 MG Hydrocodone-Acetaminophen 5-325 MG 01/02/2020 12:00:00 AM EST 1.0 {tablet_as_needed} active Hydrocodone-Acetaminophen 5-325 MG eCW1 ([facility]) Acetaminophen 325 MG / Hydrocodone Mariaelena trate 5 MG Oral Tablet Hydrocodone- Acetaminophen 5-325 MG Hydrocodone-Acetaminophen 5-325 MG 01/02/2020 12:00:00 AM EST 1.0 {tablet_as_needed} active Hydrocodone-Acetaminophen 5-325 MG eCW1 ([facility]) Acetaminophen 325 MG / Hydrocodone Mariaelena trate 5 MG Oral Tablet Hydrocodone- Acetaminophen 5-325 MG Hydrocodone-Acetaminophen 5-325 MG 12/15/2019 12:00:00 AM EDT 1.0 {tablet_as_needed} active Hydrocodone-Acetaminophen 5-325 MG eCW1 ([facility]) Acetaminophen 325 MG / Hydrocodone Mariaelena trate 5 MG Oral Tablet Hydrocodone- Acetaminophen 5-325 MG Hydrocodone-Acetaminophen 5-325 MG 12/15/2019 12:00:00 AM EDT 1.0 {tablet_as_needed} active Hydrocodone-Acetaminophen 5-325 MG eCW1 ([facility]) Acetaminophen 325 MG / Hydrocodone Mariaelena trate 5 MG Oral Tablet Hydrocodone- Acetaminophen 5-325 MG Hydrocodone-Acetaminophen 5-325 MG 12/15/2019 12:00:00 AM EDT 1.0 {tablet_as_needed} active Hydrocodone-Acetaminophen 5-325 MG eCW1 ([facility]) Acetaminophen 325 MG / Hydrocodone Mariaelena trate 5 MG Oral Tablet Hydrocodone- Acetaminophen 5-325 MG Hydrocodone-Acetaminophen 5-325 MG 12/15/2019 12:00:00 AM EDT 1.0 {tablet_as_needed} active Hydrocodone-Acetaminophen 5-325 MG eCW1 ([facility]) 30 ACTUAT fluticasone furoate 0.1 MG/ACT UAT / vilanterol 0.025 MG/ACTUAT Dry Powder Inhaler [Breo] Breo Ellipta 12/07/2019 12:00:00 AM EDT active MEDENT ([facility]) Prednisone 20 MG Oral Tablet PredniSONE 20 MG PredniSONE 20 MG 11/27/2019 12:00:00 AM EDT 1.0 {tablet} active Pr edniSONE 20 MG eCW1 ([facility]) Prednisone 20 MG Oral Tablet PredniSONE 20 MG PredniSONE 20 MG 11/27/2019 12:00:00 AM EDT 1.0 {tablet} active Pr edniSONE 20 MG eCW1 ([facility]) Prednisone 20 MG Oral Tablet PredniSONE 20 MG PredniSONE 20 MG 11/27/2019 12:00:00 AM EDT 1.0 {tablet} active Pr edniSONE 20 MG eCW1 ([facility]) Prednisone 20 MG Oral Tablet PredniSONE 20 MG PredniSONE 20 MG 11/27/2019 12:00:00 AM EDT 1.0 {tablet} active Pr edniSONE 20 MG eCW1 ([facility]) Albuterol Sulfate 108 (90 Base) MCG/ACT UNK 11/27/2019 12: 00:00 AM EDT 1.0 {puff_as_needed} active Albuterol Sulfa te 108 (90 Base) MCG/ACT eCW1 ([facility]) Prednisone 20 MG Oral Tablet PredniSONE 20 MG PredniSONE 20 MG 11/27/2019 12:00:00 AM EDT 1.0 {tablet} active Pr edniSONE 20 MG eCW1 ([facility]) Albuterol Sulfate 108 (90 Base) MCG/ACT UNK 11/27/2019 12: 00:00 AM EDT 1.0 {puff_as_needed} active Albuterol Sulfa te 108 (90 Base) MCG/ACT eCW1 ([facility]) Albuterol Sulfate 108 (90 Base) MCG/ACT UNK 11/27/2019 12: 00:00 AM EDT 1.0 {puff_as_needed} active Albuterol Sulfa te 108 (90 Base) MCG/ACT eCW1 ([facility]) Prednisone 20 MG Oral Tablet PredniSONE 20 MG PredniSONE 20 MG 11/27/2019 12:00:00 AM EDT 1.0 {tablet} active Pr edniSONE 20 MG eCW1 ([facility]) Albuterol Sulfate 108 (90 Base) MCG/ACT UNK 11/27/2019 12: 00:00 AM EDT 1.0 {puff_as_needed} active Albuterol Sulfa te 108 (90 Base) MCG/ACT eCW1 ([facility]) Prednisone 20 MG Oral Tablet PredniSONE 20 MG PredniSONE 20 MG 11/27/2019 12:00:00 AM EDT 1.0 {tablet} active Pr edniSONE 20 MG eCW1 ([facility]) Prednisone 20 MG Oral Tablet PredniSONE 20 MG PredniSONE 20 MG 11/27/2019 12:00:00 AM EDT 1.0 {tablet} active Pr edniSONE 20 MG eCW1 ([facility]) Albuterol Sulfate 108 (90 Base) MCG/ACT UNK 11/27/2019 12: 00:00 AM EDT 1.0 {puff_as_needed} active Albuterol Sulfa te 108 (90 Base) MCG/ACT eCW1 ([facility]) Prednisone 20 MG Oral Tablet PredniSONE 20 MG PredniSONE 20 MG 11/27/2019 12:00:00 AM EDT 1.0 {tablet} active Pr edniSONE 20 MG eCW1 ([facility]) Prednisone 20 MG Oral Tablet PredniSONE 20 MG PredniSONE 20 MG 11/27/2019 12:00:00 AM EDT 1.0 {tablet} active Pr edniSONE 20 MG eCW1 ([facility]) Prednisone 20 MG Oral Tablet PredniSONE 20 MG PredniSONE 20 MG 11/27/2019 12:00:00 AM EDT 1.0 {tablet} active Pr edniSONE 20 MG eCW1 ([facility]) Albuterol Sulfate 108 (90 Base) MCG/ACT UNK 11/27/2019 12: 00:00 AM EDT 1.0 {puff_as_needed} active Albuterol Sulfa te 108 (90 Base) MCG/ACT eCW1 ([facility]) Albuterol Sulfate 108 (90 Base) MCG/ACT UNK 11/27/2019 12: 00:00 AM EDT 1.0 {puff_as_needed} active Albuterol Sulfa te 108 (90 Base) MCG/ACT eCW1 ([facility]) Prednisone 20 MG Oral Tablet PredniSONE 20 MG PredniSONE 20 MG 11/27/2019 12:00:00 AM EDT 1.0 {tablet} active Pr edniSONE 20 MG eCW1 ([facility]) Prednisone 20 MG Oral Tablet PredniSONE 20 MG PredniSONE 20 MG 11/27/2019 12:00:00 AM EDT 1.0 {tablet} active Pr edniSONE 20 MG eCW1 ([facility]) Albuterol Sulfate 108 (90 Base) MCG/ACT UNK 11/27/2019 12: 00:00 AM EDT 1.0 {puff_as_needed} active Albuterol Sulfa te 108 (90 Base) MCG/ACT eCW1 ([facility]) Albuterol Sulfate 108 (90 Base) MCG/ACT UNK 11/27/2019 12: 00:00 AM EDT 1.0 {puff_as_needed} active Albuterol Sulfa te 108 (90 Base) MCG/ACT eCW1 ([facility]) Prednisone 20 MG Oral Tablet PredniSONE 20 MG PredniSONE 20 MG 11/27/2019 12:00:00 AM EDT 1.0 {tablet} active Pr edniSONE 20 MG eCW1 ([facility]) Prednisone 20 MG Oral Tablet PredniSONE 20 MG PredniSONE 20 MG 11/27/2019 12:00:00 AM EDT 1.0 {tablet} active Pr edniSONE 20 MG eCW1 ([facility]) Prednisone 20 MG Oral Tablet PredniSONE 20 MG PredniSONE 20 MG 11/27/2019 12:00:00 AM EDT 1.0 {tablet} active Pr edniSONE 20 MG eCW1 ([facility]) Albuterol Sulfate 108 (90 Base) MCG/ACT UNK 11/27/2019 12: 00:00 AM EDT 1.0 {puff_as_needed} active Albuterol Sulfa te 108 (90 Base) MCG/ACT eCW1 ([facility]) Prednisone 20 MG Oral Tablet PredniSONE 20 MG PredniSONE 20 MG 11/27/2019 12:00:00 AM EDT 1.0 {tablet} active Pr edniSONE 20 MG eCW1 ([facility]) Prednisone 20 MG Oral Tablet PredniSONE 20 MG PredniSONE 20 MG 11/27/2019 12:00:00 AM EDT 1.0 {tablet} active Pr edniSONE 20 MG eCW1 ([facility]) gabapentin 100 MG Oral Capsule Gabapentin 02/03/2019 12:00:00 AM EST ORAL active MEDENT ([facility]) prednisolone acetate 10 MG/ML Ophthalmic Suspension [Pred Forte] Pred Forte 1% Ophthalmic Suspension Pred Forte 1% Ophthalmic Suspension 06/03/2018 12:00:0 0 AM EDT aborted predniso lone acetate 10 MG/ML Ophthalmic Suspension [Pred Forte] W[facility] (Bebeto Mcfadden MD [facility]) besifloxacin 6 MG/ML Ophthalmic Suspensi on [Besivance] Besivance 0.6% Ophthalmic Suspension Besivance 0.6% Ophthalmic Suspension 06/03/2018 12:00:00 AM EDT aborted besifloxacin 6 MG/ML Ophthalmic Suspension [Besivance] W[facility] (Bebeto Mcfadden MD [facility]) BromSite 0.075% Ophthalmic Solution BromSite 0.075% Ophthalm ic Solution 06/03/2018 12:00:00 AM EDT aborted bromfenac 0.75 MG/ML Ophthalmic Solution [Bromsite] WES (Bebeto Mcfadden MD [facility]) Insurance Providers Payer name Policy type / Coverage type Policy ID Covered libertarian ID Covered libertarian's relationship to toscano Policy [place] Plan Information MEDICARE COMPLETE [id number] SP [id number] MEDICARE COMPLETE-[facility] [id number] S [id number] [facility] [id number] UHC UNITED MEDICARE COMPLETE G [id number] Self [id number] [facility] [id number] Self [id number] MEDICARE COMPLETE [id number] SP [id number] [facility] MEDICAID [id number] [place] [id number] MEDICARE COMPLETE [id number] SP [id number] MEDICARE COMPLETE [id number] SP [id number] ANSI-Medicare Part B [id number] ANSI-Medicare Part B [id number] Medicare Solutions Commercial [id number] Self [id number] ANSI-Medicare Part B [id number] ANSI-Medicare Part B [id number] ANSI-Medicare Part B [id number] ANSI-Medicare Part B [id number] ANSI-Medicare Part B [id number] ANSI-Medicare Part B [id number] ANSI-Medicare Part B [id number] ANSI-Medicare Part B [id number] ANSI-Medicare Part B [id number] MEDICARE COMPLETE [id number] Problems, Conditions, and Diagnoses Code Display Name Description Problem Type Effective Dates Data Source(s) F43.21 [id number] Situational depression Problem 03/05/2020 12 :00:00 AM EST eCW1 ([facility]) F32.9 [id number] Reactive depression (situational) Problem 03/05/2020 12:00:00 AM EST eCW1 ([facility]) G89.3 [id number] Pain, cancer Problem 12/15/2019 12:00:00 AM EDT eCW1 ([facility]) J84.9 [id number] Interstitial lung disease Problem 11/28/2019 12:00:00 AM EDT eCW1 ([facility]) K21.9 Gastroesophageal reflux disease Gastroesophageal reflu x disease Problem 11/27/2019 12:00:00 AM EDT eCW1 ([facility]) G89.29 [id number] Other chronic pain Problem 07/20/2019 12:00: 00 AM EDT eCW1 ([facility]) E78.2 [id number] Mixed hyperlipidemia Problem 07/19/2019 12:0 0:00 AM EDT eCW1 ([facility]) I10 Essential hypertension Essential (primary) hypertensio n Problem 03/24/2019 12:00:00 AM EST eCW1 ([facility]) I10 Essential hypertension Essential (primary) hypertensio n Problem 03/24/2019 12:00:00 AM EST eCW1 ([facility]) I06.0 Rheumatic aortic stenosis Rheumatic aortic stenosis Di agnosis 01/25/2020 07:57:25 AM [facility] Z01.810 Encounter for preprocedural cardiovascul ar examination Encounter for preprocedural cardiovascul Diagnosis 01/25/2020 07:57:[address] [facility] C34.90 Malignant neoplasm of unspecified part o f unspecified bronchus or lung Malignant neoplasm of unspecified part of unspecified bronchus or lung Diagnosis 12/27/2019 02:06:00 PM [facility] Surgeries/Procedures Procedure Description Date Indications Data Source(s) Bronchoscopy W/Brushing Or Protected Brushings 020 12:00:00 AM EST MEDENT ([facility], ) Bronchoscopy W/Bronchial Alveolar Lavage 12/27/2019 12 :00:00 AM EST MEDENT ([facility], ) Bronchoscopy W/Transbronchial Lung Biopsy 12/27/2019 1 2:00:00 AM EST MEDENT ([facility], ) With Endobronchial Ultrasound Guided 12/27/2019 12:00: 00 AM EST MEDENT ([facility], ) Spirometry 12/07/2019 12:00:00 AM EDT M EDENT ([facility], ) Aerosol Or Vapor Inhalations 12/07/2019 12:00:00 AM ED T MEDENT ([facility], ) Immunization: Flublok Quadrivalent (18 years & older) 0.5mL IM (Influenza) 11/27/2019 12:00:00 AM EDT eCW1 ([facility]) History of the retina was normal 07/08/2018 History of the retina was normal 07/08/2018 07/28/2019 12:00:00 AM EDT WES (Bartolo Mcfadden MD [facility]) Currently wearing eyeglasses Currently wearing eyeglasses 12:00:00 AM EDT WES (Bebeto Mcfadden MD [facility]) History of diabetes mellitus Dx: around , A1c: 7.2 with Denise Soosairasamaria [employer] , FBS: 114 this morning History of diabetes mellitus Dx: around , A1c: 7.2 with Denise Soosairaj [employer] , FBS: 114 this morning 07/28/2019 12:00:00 AM EDT WES (Bebeto liu MD [facility]) Intermediate Eye Exam Established Patient Intermediate Eye Exam Established Patient 07/28/2019 12:00:00 AM EDT WES (Bartolo Mcfadden MD [facility]) History of extracapsular cataract extrac tion PCIOL OS 05/26/[address] De Jesus ~PCIOL OD 06/16/[address] De Jesus History of extracapsular cataract extraction PCIOL OS 05/26/[address] De Jesus ~PCIOL OD 06/16/[address] De Jesus 05/22/2019 12:00:00 AM EDT WES (Bartolo Mcfadden MD [facility]) History of diabetes mellitus Dx: around , A 1c: 7.8, FBS: 160 History of diabetes mellitus Dx: around , A1c: 7.8, FBS: 160 05/22/2019 12:00:00 AM EDT WES (Bebeto Mcfadden MD [facility] [place]) History of extracapsular cataract extrac tion PCIOL OS 05/26/[address] De Jesus ~PCIOL OD 06/16/[address] De Jesus History of extracapsular cataract extraction PCIOL OS 05/26/[address] De Jesus ~PCIOL OD 06/16/[address] De Jesus 05/22/2019 12:00:00 AM EDT WES (Bartolo Mcfadden MD [facility] [place]) History of extracapsular cataract extrac tion PCIOL OS 05/26/[address] De Jesus History of extracapsular cataract extrac tion PCIOL OS 05/26/[address] De Jesus 05/22/2019 12:00:00 AM EDT WES (Bartolo Mcfadden MD [facility] [place]) History of diabetes mellitus Dx: around , A 1c: 7.8, FBS: 160 History of diabetes mellitus Dx: around , A1c: 7.8, FBS: 160 05/22/2019 12:00:00 AM EDT WES (Bebeto Mcfadden MD [facility] [place]) History of extracapsular cataract extrac tion PCIOL OS 05/26/[address] De Jesus ~PCIOL OD 06/16/[address] De Jesus History of extracapsular cataract extraction PCIOL OS 05/26/[address] De Jesus ~PCIOL OD 06/16/[address] De Jesus 05/22/2019 12:00:00 AM EDT WES (Bartolo Mcfadden MD [facility] [place]) Surgical / procedural history 1985, Broken left wrist 1996, Right knee replacement 2014 Surgical / procedural history 1985, Broken left wrist 1996, Right knee replacement 201405/12/2019 12:00:00 AM EDT WES (Bebeto Mcfadden MD [facility] [place]) History of diabetes mellitus Dx: around , A 1c: 7.8, FBS: 160 History of diabetes mellitus Dx: around , A1c: 7.8, FBS: 160 05/12/2019 12:00:00 AM EDT WES (Bebeto Mcfadden MD [facility] [place]) Surgical / procedural history 1985, Broken left wrist 1996, Right knee replacement 2014 Surgical / procedural history 1985, Broken left wrist 1996, Right knee replacement 201405/12/2019 12:00:00 AM EDT WES (Bebeto Mcfadden MD [facility] [place]) No recent change in medical history No recent change in medi leticia history 05/12/2019 12:00:00 AM EDT WES (Bebeto liu MD [facility] [place]) History of diabetes mellitus Dx: around , A1 c: 7.8, FBS: 160 History of diabetes mellitus Dx: around , A1c: 7.8, FBS: 160 05/12/2019 12:00:00 AM EDT WES (Bebeto Mcfadden MD [facility] [place]) Surgical / procedural history 1985, Broken left wrist 1996, Right knee replacement 2014 Surgical / procedural history 1985, Broken left wrist 1996, Right knee replacement 201405/12/2019 12:00:00 AM EDT WES (Bebeto Mcfadden MD [facility] [place]) History of extracapsular cataract extraction OS [address] De Jesus History of extracapsular cataract extraction OS 05/26/[address] De Jesus 05/12/2019 12:00:00 AM EDT WES (Bebeto liu MD [facility] [place]) History of diabetes mellitus Dx: around , A1 c: 7.8, FBS: 160 History of diabetes mellitus Dx: around , A1c: 7.8, FBS: 160 05/12/2019 12:00:00 AM EDT WES (Bebeto Mcfadden MD [facility] [place]) Recent change in medical history Cataract surgery OS 05/26/[address] De Jesus Recent change in medical history Cataract surgery OS 05/26/[address] De Jesus 05/12/2019 12:00:00 AM EDT WES (Bebeto liu MD [facility] [place]) Surgical / procedural history 1985, Broken left wrist 1996, Right knee replacement 2014 Surgical / procedural history 1985, Broken left wrist 1996, Right knee replacement 201405/12/2019 12:00:00 AM EDT WES (Bebeto Mcfadden MD [facility] [place]) History of diabetes mellitus Dx: around , A1 c: 7.8, FBS: 160 History of diabetes mellitus Dx: around , A1c: 7.8, FBS: 160 05/12/2019 12:00:00 AM EDT WES (Bebeto Mcfadden MD [facility] [place]) Surgical / procedural history 1985, Broken left wrist 1996, Right knee replacement 2014 Surgical / procedural history 1985, Broken left wrist 1996, Right knee replacement 201405/12/2019 12:00:00 AM EDT WES (Bebeto Mcfadden MD [facility] [place]) History of diabetes mellitus Dx: around , A1c: 7.8, FBS: yesterday was around 160 History of diabetes mellitus Dx: around , A1c: 7.8, FBS: yesterday was around 160 05/12/2019 12:00:00 AM EDT WES (Bebeto Mcfadden MD [facility] [place]) Surgical / procedural history 1985, Broken left wrist 1996, Right knee replacement 2014 Surgical / procedural history 1985, Broken left wrist 1996, Right knee replacement 201405/12/2019 12:00:00 AM EDT WES (Bebeto Mcfadden MD [facility] [place]) No recent change in medical history No recent change in medi leticia history 05/12/2019 12:00:00 AM EDT WES (Bebeto liu MD [facility]) Surgical / procedural history 1985, Broken left wrist 1996, Right knee replacement 2014 Surgical / procedural history 1985, Broken left wrist 1996, Right knee replacement 201405/12/2019 12:00:00 AM EDT WES (Bebeto Mcfadden MD [facility]) Office Visit, Est Pt., Level 2 FC 03/24/2019 12:00:00 AM EST eCW1 ([facility]) Office Visit, Est Pt., Level 4 PC 03/24/2019 12:00:00 AM EST eCW1 ([facility]) Results ID Date Data Source [id number] 03/11/2020 01:01:00 PM EST [facility] Name Value Range Interpretation Code Description Data Madyson rce(s) Supporting Document(s) SARS coronavirus 2 RNA [Presence] in Res piratory specimen by PILY with probe detection NEGATIVE [facility] This lab was ordered by [facility] a nd reported by [facility]. ID Date Data Source [id number] 02/27/2020 03:48:00 PM EST [facility] Name Value Range Interpretation Code Description Data Madyson rce(s) Supporting Document(s) SARS-CoV-2 (COVID 19) NEGATIVE - SARS-CoV-2 (COVID19) [facility] This lab was ordered by [facility] a nd reported by [facility]. ID Date Data Source [id number] 01/27/2020 04:23:00 PM EST [facility] Name Value Range Interpretation Code Description Data Madyson rce(s) Supporting Document(s) SARS-CoV-2 (COVID 19) [facility] This lab was ordered by [facility] a nd reported by [facility]. ID Date Data Source [id number] 01/26/2020 11:40:00 AM EST MEDENT ([facility]) Name Value Range Interpretation Code Description Data Madyson rce(s) Supporting Document(s) Natriuretic peptide.B prohormone N-Terminal [Mass/volu me] in Serum or Plasma 713 pg/mL Above high normal [facility], ) ID Date Data Source [id number] 01/26/2020 11:40:00 AM [facility] ([facility]) Name Value Range Interpretation Code Description Data Madyson rce(s) Supporting Document(s) Glucose, Fasting 142 mg/dL 70-100 Above high normal M EDENT ([facility]) Blood Urea Nitrogen 15 mg/dL 7-18 Normal (applies to non-nume blaire results) [facility] ([facility]) Creatinine For GFR 0.51 mg/dL 0.55-1.30 Below low normal [facility] ([facility]) Glomerular Filtration Rate Laboratory test result Normal (applies to non- numeric results) [facility] ([facility]) <content>Units are mL/min/1.73 m2</content>
<content></content>
<content>Chronic Kidney Disease Staging per NKF:</content>
<content></content>
<content>Stage I & II GFR >=60 Normal to Mildly Decreased</content>
<content>Stage III GFR 30- 59 Moderately Decreased</content>
<content>Stage IV GFR 15-29 Severely Decreased</content>
<content>Stage V GFR <15 Very Little GFR Left</content>
<content>ESRD GFR <15 on CARD GRINDER</content>
<content></content> Potassium Serum 4.0 meq/L 3.5-5.1 Normal (applies to non-numeric results) MED[facility] ([facility]) Sodium Level 140 meq/L 136-145 Normal (applies to non-numeric res ults) [facility] ([facility]) Carbon Dioxide Level 33 meq/L 21-32 Above high normal [facility] ([facility]) Anion Gap 6 meq/L 8-16 Below low normal [facility] ( [facility]) Chloride Level 101 meq/L 98-107 Normal (applies to non-numeric r esults) [facility] ([facility]) Calcium Level 8.7 mg/dL 8.8-10.2 Below low normal MEDEN T ([facility]) ID Date Data Source [id number] 01/09/2020 10:39:00 AM EST MEDENT ([facility]) Name Value Range Interpretation Code Description Data Madyson rce(s) Supporting Document(s) Urea nitrogen [Mass/volume] in Serum or Plasma 12 mg/dL 7 -18 Normal (applies to non-numeric results) [facility] ([facility]) ID Date Data Source [id number] 01/09/2020 10:39:00 AM EST [facility] ([facility]) Name Value Range Interpretation Code Description Data Madyson rce(s) Supporting Document(s) Glomerular Filtration Rate Laboratory test result Normal (applies to non- numeric results) [facility] ([facility]) <content>Units are mL/min/1.73 m2</content>
<content></content>
<content>Chronic Kidney Disease Staging per NKF:</content>
<content></content>
<content>Stage I & II GFR >=60 Normal to Mildly Decreased</content>
<content>Stage III GFR 30- 59 Moderately Decreased</content>
<content>Stage IV GFR 15-29 Severely Decreased</content>
<content>Stage V GFR <15 Very Little GFR Left</content>
<content>ESRD GFR <15 on CARD GRINDER</content>
<content></content> Creatinine For GFR 0.47 mg/dL 0.55-1.30 Below low normal [facility] ([facility]) ID Date Data Source [id number] 01/05/2020 11:01:00 AM EST [facility]) Name Value Range Interpretation Code Description Data Madyson rce(s) Supporting Document(s) Gram Stain Laboratory test result Normal (applies to non-n umeric results) [facility] ([facility]) MANY RBCS MODERATE WBCS NO ORGANISMS SEEN Body Fluid Culture Laboratory test result [facility] ([facility]) If aerobic or anaerobic growth is detected within the next 7-21 days, an addendum will follow. . . FULL REPORT IN LAB NOTES ([facility] and [facility]). NO GROWTH AEROBICALLY ID Date Data Source [id number] 01/05/2020 11:01:00 AM EST [facility] ([facility]) Name Value Range Interpretation Code Description Data Madyson rce(s) Supporting Document(s) PH Body Fluid 7.399 units Normal (applies to non-numeric r esults) [facility] ([facility]) Source, Body Fluid pH Laboratory test result Nor mal (applies to non-numeric results) [facility]) ID Date Data Source [id number] 01/05/2020 11:01:00 AM EST [facility] ([facility]) Name Value Range Interpretation Code Description Data Madyson rce(s) Supporting Document(s) Source, Body Fluid Amylase Laboratory test result Normal (applies to non- numeric results) [facility] ([facility]) Amylase, Body Fluid 14 U/L Normal (applies to non-nume blaire results) [facility]) ID Date Data Source [id number] 01/05/2020 11:01:00 AM EST [facility]) Name Value Range Interpretation Code Description Data Madyson rce(s) Supporting Document(s) Glucose, Body Fluid 120 mg/dL Normal (applies to non-nume blaire results) [facility] ([facility]) Source, Body Fluid Glucose Laboratory test result Normal (applies to non- numeric results) [facility]) ID Date Data Source [id number] 01/05/2020 11:01:00 AM EST [facility]) Name Value Range Interpretation Code Description Data Madyson rce(s) Supporting Document(s) Source, Body Fluid LDH Laboratory test result No rmal (applies to non-numeric results) [facility] ([facility]) LDH, Body Fluid 188 U/L Normal (applies to non-numeric results) [facility] ([facility]) ID Date Data Source [id number] 01/05/2020 11:01:00 AM EST [facility]) Name Value Range Interpretation Code Description Data Madyson rce(s) Supporting Document(s) Total Protein, Body Fluid 4.1 g/dL Normal (applies to no n-numeric results) [facility] ([facility]) Source, Body Fluid Tot Protein Laboratory test result Normal (applies to non- numeric results) [facility]) ID Date Data Source [id number] 01/05/2020 11:01:00 AM EST [facility]) Name Value Range Interpretation Code Description Data Madyson rce(s) Supporting Document(s) Bacteria identified in Unspecified specimen by Anaerob e culture Laboratory test result [facility]) If anaerobic or aerobic growth is detected within the next 7-21 days, an addendum will follow. . . FULL REPORT IN LAB NOTES ([facility] NO GROWTH ANAEROBICALLY ID Date Data Source [id number] 01/05/2020 11:01:00 AM EST [facility] ([facility]) Name Value Range Interpretation Code Description Data Madyson rce(s) Supporting Document(s) Source, Body Fluid Laboratory test result Normal (applies to non-numeric results) [facility] ([facility]) Pleural FL Color Laboratory test result Normal ( applies to non-numeric results) [facility] ([facility]) RBC Body Fluid 26 10 Normal (applies to non-numeric r esults) [facility] ([facility]) Appearance, Body Fluid Laboratory test result No rmal (applies to non-numeric results) [facility] ([facility]) WBC Body Fluid 634 /uL 0-10 Above high normal [facility] ([facility]) BF Mononuclear Cell % 94.6 % 0-0 Above high normal [facility] ([facility]) BF Polymorphonuclear Cell % 5.4 % 0-0 Above high normal [facility] ([facility]) ID Date Data Source [id number] 01/05/2020 11:01:00 AM EST [facility] ([facility]) Name Value Range Interpretation Code Description Data Madyson rce(s) Supporting Document(s) Amylase [Enzymatic activity/volume] in Body fluid Laboratory test res ult [facility] ([facility]) ID Date Data Source [id number] 01/05/2020 09:21:00 AM EST [facility] ([facility]) Name Value Range Interpretation Code Description Data Madyson rce(s) Supporting Document(s) Surgical pathology study Laboratory test result [facility] ([facility]) FINAL DIAGNOSIS Right pleural fluid, cell-block: No malignant cells identified. Inflammatory cells and mesothelial cells. TTF-1 stain used in evaluation. See specimen [id number] 01/09/2020 - 1113 CLINICAL DIAGNOSIS Right pleural effusion 01/08/2020 - 0709 GROSS DIAGNOSIS Received 400 ml of right pleural fluid for cell block. -OA 01/09/2020 - 111 Signed LILIYA WASHINGTON MD 01/09/2020 1113 ID Date Data Source [id number] 01/05/2020 09:21:00 AM EST [facility] ([facility]) Name Value Range Interpretation Code Description Data Madyson rce(s) Supporting Document(s) Microscopic observation [Identifier] in Unspecified specimen by Non- gynecological cytology method Laboratory test result [facility] ([facility]) SPECIMEN: Pleural fluid 400ml Red SPECIMEN ADEQUACY: Satisfactory for evaluation CATEGORIZATION: Rare Clusters of Atypical Cells DESCRIPTIONS: Few groups of atypical cells exhbiting irregular nuclei with prominent nucleoli, suspicious for metastatic carcinoma. COMMENTS: Clinical correlation is recommended. 01/09/2020 - [address](ASCP) 01/08/2020 0739 (Prelim) Signed LILIYA WASHINGTON MD 01/09/2020 112 ID Date Data Source [id number] 12/27/2019 02:30:00 PM EST [facility] ([facility]) Name Value Range Interpretation Code Description Data Madyson rce(s) Supporting Document(s) Surgical pathology study Laboratory test result [facility] ([facility]) Anatomic Molecular Pathology Report Name: OPAL VALENZUELA Collection Date: 12/27/2019 00:00 Received Date: 12/29/2019 14:28 Physician(s): BRIANA HUGHES MD Haghir, Shahandeh MD Copy To: BRIANA HUGHES MD Specimen(s) Received A: Right lung, lower lobe, Formalin Block [id number] received from [facility] in [place], [place] ROS1 by FISH Diagnosis TEST: ROS1 [...] characteristics were determined by the [facility], and it has been authorized for clinical use by [facility]. The test has not been cleared or approved by the U.S. Food and Drug Administration. The analyte specific reagents used in this assay do not require FDA approval. Processed at [facility] [employer], [address] [place] [address] and reported at [facility], [address] [place] [address]. REFERENCES: 1. ALEM Che, Ava AT, Elba GALVAN et al. Identifying and Targeting ROS1 Gene Fusions in NonSmall Cell Lung Cancer. Clin Cancer Res 2012; 18(17); 89724958. 2. Carlin, [place] AT. Novel Targets i n Non-Small Cell Lung Cancer: ROS-1 and RET fusions. The Oncologist. 2013;18:865-875. This report may include one or more immunohistochemical stain results that use analyte specific reagents. All positive and negative controls have been reviewed by the attending pathologist and are satisfactory. The tests were developed and their performance characteristics determined by [facility] Pathology department. They have not been cleared or approved by the US Food and Drug Administration. The FDA has determined that such clearance or approval is not necessary. ID Date Data Source [id number] 12/27/2019 09:12:00 AM EST [facility] ([facility]) Name Value Range Interpretation Code Description Data Madyson rce(s) Supporting Document(s) Microscopic observation [Identifier] in Unspecified specimen by Non- gynecological cytology method Laboratory test result [facility] ([facility]) will discuss at follow-up ID Date Data Source [id number] 12/27/2019 09:04:00 AM EST [facility] ([facility]) Name Value Range Interpretation Code Description Data Madyson rce(s) Supporting Document(s) Glucose [Mass/volume] in Capillary blood by Glucometer 176 mg/dL 83-110 Above high normal [facility] ([facility]) Doctor Notified ID Date Data Source [id number] 12/27/2019 08:52:00 AM EST [facility] ([facility]) Name Value Range Interpretation Code Description Data Madyson rce(s) Supporting Document(s) Microscopic observation [Identifier] in Unspecified specimen by Non- gynecological cytology method Laboratory test result [facility] ([facility]) SPECIMEN: Bronchial brushing (right lower lobe) [place] in vial and prepared slides received SPECIMEN ADEQUACY: Satisfactory for evaluation CATEGORIZATION: Positive for Malignancy DESCRIPTIONS: Small groups and single malignant cells noted exhibiting nuclei of varying size with multiple prominent nucleoli. The background consists of scattered lymphocytes and blood. COMMENTS: See also report [id number] 4/TR 12/28/2019914 Signed FIORELLA ERNANDEZ(ASCP) 12/28/2019 0752 (Prelim) Signed Isabella Mckeon MD 12/28/2019914 ID Date Data Source [id number] 12/27/2019 08:51:00 AM EST [facility] ([facility]) Name Value Range Interpretation Code Description Data Madyson rce(s) Supporting Document(s) Microscopic observation [Identifier] in Unspecified specimen by Non- gynecological cytology method Laboratory test result [facility] ([facility]) SPECIMEN: FNA Subcarinal lymp h node Cytolyt and prepared slides received SPECIMEN ADEQUACY: Satisfactory for evaluation CATEGORIZATION: Positive for Malignancy DESCRIPTIONS: Specimen consists of groups and single malignant cells exhibiting variation in nuclear size and prominent multiple nucleoli. COMMENTS: Findings are consistent with metastatic NSCLC, see also report [id number] 4/TR 12/28/2019913 Signed FIORELLA ERNANDEZ CT(ASCP) 12/28/2019 0702 (Prelim) Signed Isabella Mckeon MD 12/28/2019913 ID Date Data Source [id number] 12/27/2019 08:38:00 AM EST [facility] ([facility]) Name Value Range Interpretation Code Description Data Madyson rce(s) Supporting Document(s) Surgical pathology study Laboratory test result [facility] ([facility]) Addendum 1 Entered: 01/10/2020-0805 PD-L1 KEYTRUDA shows tumor proportion score of 80%/High expression. See complete report from [facility]. Negative EGFR Negative for KRAS Negative for BRAF Negative for ALK Negative for ROS1 See complete reports from [facility], scanned in EMR under pathology module. 01/10/2020804 Addendum Signed____ Isabella Mckeon MD 01/10/2020804 FINAL DIAGNOSIS Right lung, lower lobe, biopsy: Poorly differentiated/high grade adenocarcinoma. TTF-1 is positive in tumor cells and P40 stain is negative. See note. NOTE: The unstained slides were sent for PD-L1 testing to [facility] and the tissue block to [facility] for molecular test panel. Addendum with results will follow. 4/TR 12/28/2019 - 1252 CLINICAL DIAGNOSIS Abnormal x-ray 12/27/20191506 GROSS DIAGNOSIS Received in formalin labeled "right lower lobe" is a bag containing a 0.8 x 0.4 x 0.2 cm aggregate of pale whi te and red fragments. All in one. - 12/27/20191506 Signed Isabella Mckeon MD 12/28/2019 1252 ID Date Data Source [id number] 12/27/2019 07:15:00 AM EST [facility] ([facility], ) Name Value Range Interpretation Code Description Data Madyson rce(s) Supporting Document(s) Glucose [Mass/volume] in Capillary blood by Glucometer 152 mg/dL 83-110 Above high normal [facility] ([facility]) ID Date Data Source [id number] 12/27/2019 07:13:00 AM EST [facility] ([facility]) Name Value Range Interpretation Code Description Data Madyson rce(s) Supporting Document(s) Gram Stain Laboratory test result Normal (applies to non-n umeric results) [facility] ([facility], ) MANY WBCS NO ORGANISMS SEEN Bal Culture Laboratory test result Normal (applies to non- numeric results) [facility] ([facility], ) FULL REPORT IN LAB NOTES (eCW and [facility] ). NO GROWTH AEROBICALLY ID Date Data Source [id number] 01/09/2020 11:59:00 AM [facility] Anatomic Molecular Pathology ReportName: CLAY VALENZUELAJamesN: [id number] Number: [id number] Date: 12/27/2019 00:00Received Date: 12/29/2019 14:28Physician(s): BRIANA HUGHES MD Haghir, Shahandeh MDCopy To:BRIANA HUGHES MDSpecimen(s) ReceivedA: Right lung, lower lobe, Formalin Block [id number] received from [facility] in [place], [place] ROS1 by FISHDiagnosisTEST:ROS1 gene rearrangements by [...] performed on paraffin embedded NSCLC utilizing thecombined Nautit Molecular LSI ROS1(Farnaz) and ROS1(Tel) ROS1 Probes: 1)3'-ROS1(Farnaz), 557 kb, labeled with SpectrumGreen, and 2) 5'-ROS1(Tel),317kb, labeled with SpectrumOrange. Tumor cells with no OLV0tpbqnbynhqdgcd have 2 yellow signals (fused orange and [...] performance characteristics weredetermined by the [facility],and it has been authorized for clinical use by [facility]. The test has not been cleared or approved by the U.S. Food andDrug Administration. The analyte specific reagents used in this assay donot require FDA approval. Processed at [facility] [employer], [address] [place] [address] and reported at [facility], [address] [place] [address].REFERENCES: 1. ALEM Che, Ava AT, Elba GALVAN et al. Identifying and Targeting UVK5Sgqw Fusions in NonSmall Cell Lung Cancer. Clin Cancer Res 2012; 18(17);07627509.2. Carlin, [place] AT. Novel Targets in Non-Small Cell Lung Cancer:ROS-1 and RET fusions. The Oncologist. 2013;18:865- 875.This report may include one or more immunohistochemical stain results thatuse analyte specific reagents. All positive and negative controls havebeen reviewed by the attending pathologist and are satisfactory. The testswere developed and their performance characteristics determined by [facility] Pathology department. They have not been cleared or approved by the USFood and Drug Administration. The FDA has determined that such clearanceor approval is not necessary. Name Value Range Interpretation Code Description Data Madyson rce(s) Supporting Document(s) ID Date Data Source [id number] 01/09/2020 11:58:00 AM [facility] Anatomic Molecular Pathology ReportName: FELIX VALENZUELA: [id number] Number: [id number] Date: 12/27/2019 00:00Received Date: 12/29/2019 14:26Physician(s): BRIANA HUGHES MD Haghir, Shahandeh MDCopy To:BRIANA HUGHES MDSpecimen(s) ReceivedA: Right lung, lower lobe, Formalin Block [id number] received from [facility] in [place], [place], ALK by FISHDiagnosisTEST:ALK gene rearrangements by [...] is performed on paraffin embedded NSCLC utilizing theNautit Molecular ALK Break Apart FISH Probe Kit. [...] the special procedure laboratory of Department of Pathology,[facility]. Processed at [facility], [address] [place] [address] and reported at [facility], [address] [place] [address].This report may include one or more immunohistochemical stain results thatuse analyte specific reagents. All positive and negative controls havebeen reviewed by the attending pathologist and are satisfactory. The testswere developed and their performance characteristics determined by [facility] Pathology department. They have not been cleared or approved by the USFood and Drug Administration. The FDA has determined that such clearanceor approval is not necessary. Name Value Range Interpretation Code Description Data Madyson rce(s) Supporting Document(s) ID Date Data Source [id number] 01/08/2020 09:28:00 AM [facility] Anatomic Molecular Pathology ReportName: CLAY VALENZUELAJamesN: [id number] Number: [id number] Date: 12/27/2019 00:00Received Date: 12/29/2019 14:30Physician(s): BRIANA HUGHES MD Haghir, Shahandeh MDCopy To:BRIANA HUGHES MDSpecimen(s) ReceivedA: Right lung, lower lobe, Formalin Block [id number] received from [facility] in [place], [place] KRAS Mutation AnalysisDiagnosisTEST:KRAS gene mutations by [...] Balderas M.D. Attending Pathologist 01/08/2020 09:28:14Reported at [address] [place] [address]. Gross DescriptionMETHODOLOGY: The therascreen KRAS RGQ PCR Kit is a real-time qualitative PCR assayused on the DripDrop instrument for the detection of seven somaticmutations [...] Herrera, Prince SANDHU, Lynn MR, et al. [place] Societyof Clinical Oncology provisional clinical opinion: testing for KRAS genemutations in patients with metastatic colorectal carcinoma to predictresponse to anti-epidermal growth factor receptor monoclonal antibodytherapy. J Clin Oncol 27:0108-3372, 2009. 2. Karla Yanes , Sophie Ferguson , VIKTORIYA Scott, et al.Biomarkers predicting clinical outcome of epidermal growth factor receptortargeted therapy in metastatic colorectal cancer. J Natl Cancer Whjy903:85426101, 2009.This report may include one or more immunohistochemical stain results thatuse analyte specific reagents. All positive and negative controls havebeen reviewed by the attending pathologist and are satisfactory. The testswere developed and their performance characteristics determined by [facility] Pathology department. They have not been cleared or approved by the USFood and Drug Administration. The FDA has determined that such clearanceor approval is not necessary. Name Value Range Interpretation Code Description Data Madyson rce(s) Supporting Document(s) ID Date Data Source [id number] 01/08/2020 09:26:00 AM [facility] Anatomic Molecular Pathology ReportName: FAUSTINO VALENZUELAN: [id number] Number: [id number] Date: 12/27/2019 00:00Received Date: 12/29/2019 14:29Physician(s): BRIANA HUGHES MD Haghir, Shahandeh MDCopy To:BRIANA HUGHES MDSpecimen(s) ReceivedA: Right lung, lower lobe, Formalin Block [id number] received from [facility] in [place], [place] EGFRDiagnosisTEST: EGFR gene mutations (exon 19 deletions, L858R, G719A, T790M, S768I,exon 20 insertions, L861Q) by [employer] RGQ real-time PCR RESULTS: An EGFR mutation is not detected.INTERPRETATION: NEGATIVE FOR EGFR GENE MUTATION.This test is FDA approved and intended to be used to select patients withnon-small cell lung cancer for whom EGFR tyrosine kinase inhibitor (TKI),such as afatinib, is indicated. Presence of exon 19 deletions, exon 35U036Z or L861Q, exon 18 G719A or exon [...] Balderas M.D. Attending Pathologist 01/08/2020 09:26:13Reported at [address] [place] [address]. Gross DescriptionMETHODOLOGY:The therascreen EGFR RGQ PCR Kit ([employer], [place], [place]) is a real-timequalitative PCR assay used on the DripDrop instrument for thedetection of seven types of [...] factor receptormutations in lung cancer. Nature Review/Cancer. 2007;9979-7876.This report may include one or more immunohistochemical stain results thatuse analyte specific reagents. All positive and negative controls havebeen reviewed by the attending pathologist and are satisfactory. The testswere developed and their performance characteristics determined by [facility] Pathology department. They have not been cleared or approved by the USFood and Drug Administration. The FDA has determined that such clearanceor approval is not necessary. Name Value Range Interpretation Code Description Data Madyson rce(s) Supporting Document(s) ID Date Data Source [id number] 01/08/2020 09:23:00 AM [facility] Anatomic Molecular Pathology ReportName: FELIX VALENZUELA: [id number] Number: [id number] Date: 12/27/2019 00:00Received Date: 12/29/2019 14:32Physician(s): BRIANA HUGHES MD Haghir, Shahandeh [facility] To:BRIANA HUGHES MDSpecimejavy(s) ReceivedA: Right lung, lower lobe, Formalin Block [id number] received from [facility] in [place] BRAF Mutation AnalysisDiagnosisTESTS:BRAF V600E mutation (1799 [...] Balderas M.D. Attending Pathologist 01/08/2020 09:23:29Reported at [address] [place] [address]. Gross DescriptionMETHODOLOGY:BRAF V600E(1799 T>A) mutation at exon [...] amounts of PCR products, and analyzed by [facility] Q real timeinstrument. The analytical sensitivity (or minimum percentage of mutantDNA needed) is approximately 10% given sufficient DNA input. Test development and its performance characteristics were determined bythe [facility], and has beenauthorized for clinical use by [facility]. Thetest has not been cleared or approved by the U.S. Food and DrugAdministration. The analyte specific reagents used in this assay do notrequire FDA approval. REFERENCES: 1. Gisel Acosta, Sierra Cooper, et al. Detection of BRAF L167Jafewewot in colorectal cancer-comparison of automatic sequencing and realtime chemistry methodology. J Mol Diagn. 2006; 8:892856.2. Bora L, Tip TJ, Ella N, et al. BRAF mutation analysis in fineneedle aspiration (FNA) cytology of the thyroid. Diagn Mol Pathol.2006;15:657725.3. Machelle PK, Mesha ME, Caron M, et al. Clinical characteristics ofpatients with lung adenocarcinomas harboring BRAF mutations. J Clin Oncol.2011;29:7848-0692.This report may include one or more immunohistochemical stain results thatuse analyte specific reagents. All positive and negative controls havebeen reviewed by the attending pathologist and are satisfactory. The testswere developed and their performance characteristics determined by [facility] Pathology department. They have not been cleared or approved by the USFood and Drug Administration. The FDA has determined that such clearanceor approval is not necessary. Name Value Range Interpretation Code Description Data Madyson rce(s) Supporting Document(s) ID Date Data Source [id number] 12/22/2019 01:00:00 PM EDT [facility] Name Value Range Interpretation Code Description Data Madyson rce(s) Supporting Document(s) SARS coronavirus 2 RNA [facility] This lab was ordered by [facility] and reported by [facility]. ID Date Data Source [id number] 12/07/2019 10:38:00 AM EDT [facility] ([facility], ) Name Value Range Interpretation Code Description Data Madyson rce(s) Supporting Document(s) Glucose, Fasting 52 mg/dL 70-100 Below low normal [facility] ([facility], ) Creatinine For GFR 0.47 mg/dL 0.55-1.30 Below low normal [facility] ([facility]) Blood Urea Nitrogen 13 mg/dL 7-18 Normal (applies to non-nume blaire results) [facility] ([facility]) Glomerular Filtration Rate Laboratory test result Normal (applies to non- numeric results) [facility]) <content>Units are mL/min/1.73 m2</content>
<content></content>
<content>Chronic Kidney Disease Staging per NKF:</content>
<content></content>
<content>Stage I & II GFR >=60 Normal to Mildly Decreased</content>
<content>Stage III GFR 30- 59 Moderately Decreased</content>
<content>Stage IV GFR 15-29 Severely Decreased</content>
<content>Stage V GFR <15 Very Little GFR Left</content>
<content>ESRD GFR <15 on CARD GRINDER</content>
<content></content> Sodium Level 139 meq/L 136-145 Normal (applies to non-numeric res ults) [facility] ([facility]) Chloride Level 103 meq/L 98-107 Normal (applies to non-numeric r esults) [facility] ([facility]) Carbon Dioxide Level 32 meq/L 21-32 Normal (applies to non-num tyerse results) [facility] ([facility]) Potassium Serum 4.2 meq/L 3.5-5.1 Normal (applies to non-numeric results) [facility] ([facility]) Anion Gap 4 meq/L 8-16 Below low normal [facility] ( [facility]) Calcium Level 9.6 mg/dL 8.8-10.2 Normal (applies to non-numeric re sults) [facility]) ID Date Data Source [id number] 12/07/2019 10:38:00 AM EDT [facility] ([facility]) Name Value Range Interpretation Code Description Data Madyson rce(s) Supporting Document(s) Prothrombin Time 13.1 s 12.5-14.3 Normal (applies to non-numeric results) [facility] ([facility]) Partial Thromboplastin Time 34.0 s 24.2-38.5 Norm al (applies to non-numeric results) [facility] ([facility]) Inr 0.98 Normal (applies to non-numeric resul ts) [facility] ([facility]) THERAPUTIC HUMAN INR VALUES INDICATIONS NORMAL RANGES PROPHYLAXIS/TREATMENT OF: VENOUS THROMBOSIS 2.0-3.0 PULMONARY EMBOLISM 2.0-3.0 PREVENTION OF SYSTEMIC EMBOLISM FROM: TISSUE HEART VALVES 2.0-3.0 ACUTE MYOCARDIAL INFARCTION 2.0-3.0 VALVULAR HEART DISEASE 2.0-3.0 ATRIAL FIBRILLATION 2.0-3.0 MECHANICAL VALVES(HIGH RISK) 2.5-3.5 RECURRENT MYOCARDIAL INFARCTION 2.5-3.5 ID Date Data Source [id number] 12/07/2019 10:38:00 AM EDT [facility] ([facility]) Name Value Range Interpretation Code Description Data Madyson rce(s) Supporting Document(s) aPTT in Platelet poor plasma by Coagulation assay Laboratory test res ult [facility] ([facility]) Platelets [#/volume] in Blood by Automated count 281 10 150-450 Normal (applies to non-numeric results) [facility]) ID Date Data Source [id number] 12/07/2019 09:16:00 AM EDT [facility] ([facility]) Name Value Range Interpretation Code Description Data Madyson rce(s) Supporting Document(s) PDFReport Laboratory test result [facility] ([facility]) FVC-Pre 1.53 L [facility] ([facility]) FVC-Pred 2.81 L [facility] ([facility]) FVC-%Pred-Pre 54 L [facility] ([facility]) FVC-LLN 2.15 L [facility] ([facility]) Fev1-Pre 1.21 L [facility] ([facility]) Fev1-Pred 2.13 L [facility] ([facility]) Fev1-%Pred-Pre 56 L [facility]) Fev1-LLN 1.57 L [facility] ([facility], ) Fev6-Pred 2.69 L [facility] ([facility]) Fev6-Pre 1.53 L [facility] ([facility]) Fev6-%Pred-Pre 56 L [facility] ([facility]) Fev6-LLN 2.04 L [facility] ([facility]) Mjm2sur-Vner 76 % [facility] ([facility]) Daz8yjq-%Pred-Pre 103 % [facility] ([facility]) Tmg3ufo-Kbp 79 % [facility] ([facility]) Vwu4olm-Cyt 100 % [facility] ([facility]) Kyk2jyk-Evco 95 % [facility] ([facility]) Mka8yqo-AGM 66 % [facility] ([facility]) Tni2wgr-%Pred-Pre 104 % [facility] ([facility]) FEFMax-Pred 5.42 L/E/sec [facility] ([facility]) FEFMax-Pre 3.58 L/E/sec [facility] ([facility]) FEFMax-%Pred-Pre 66 L/E/sec [facility] ([facility]) FEFMax-LLN 3.78 L/E/sec [facility] ([facility]) Eot0276-Zox 1.06 L/E/sec [facility] ([facility], ) Jlg1398-%Pred-Pre 58 L/E/sec [facility] ([facility]) Waa3561-Pvgt 1.81 L/E/sec [facility] ([facility]) ExpTime-Pre 5.52 sec [facility] ([facility]) Cwi3601-YAB 0.63 L/E/sec [facility] ([facility]) Bcz9knq5-Tgok 79 % [facility] ([facility]) Avw7dfs7-GFW 70 % [facility] ([facility]) Wym0oth3-Bde 79 % [facility] ([facility], ) Yst8itr3-%Pred-Pre 99 % [facility] ([facility], ) ID Date Data Source [id number] [id number] 11/27/2019 04:24:18 AM EDT eCW1 ([facility]) Name Value Range Interpretation Code Description Data Madyson rce(s) Supporting Document(s) 2.0 MAGNESIUM LEVEL eCW1 ([facility]) ID Date Data Source NT-PRO BNP 11/27/2019 04:24:14 AM EDT eCW1 ([facility]) Name Value Range Interpretation Code Description Data Madyson rce(s) Supporting Document(s) 138 NT-PRO BNP eCW1 ([facility]) ID Date Data Source CBC with Differential 11/27/2019 04:24:09 AM EDT eCW1 ([facility]) Name Value Range Interpretation Code Description Data Madyson rce(s) Supporting Document(s) 11.0 WHITE BLOOD COUNT eCW1 ([facility]) 3.76 RED BLOOD COUNT eCW1 ([facility]) 34.7 HEMATOCRIT eCW1 ([facility]) 10.8 HEMOGLOBIN eCW1 ([facility]) 28.7 MEAN CORPUSCULAR HEMOGLOBIN eC W1 ([facility]) 31.1 MEAN CORPUSCULAR HGB CONC eCW1 ([facility]) 92.3 MEAN CORPUSCULAR VOLUME eCW1 ( [facility]) 276 PLATELET COUNT, AUTOMATED eCW1 ([facility]) 14.3 RED CELL DISTRIBUTION WIDTH eC W1 ([facility]) 61.9 NEUTROPHILS % eCW1 ([facility]) 7.9 MONO % eCW1 ([facility]) 21.6 LYMPH % eCW1 ([facility]) 7.8 EOS % eCW1 ([facility]) 6.8 NEUTROPHILS # eCW1 ([facility]) 0.4 BASO % eCW1 ([facility]) 2.4 LYMPH # eCW1 ([facility]) 0.9 MONO # eCW1 ([facility]) 0.9 EOS # eCW1 ([facility]) 0.0 BASO # eCW1 ([facility]) Procedure Social History Code Duration Value Status Description Data Source(s ) Smoking 01/11/2020 12:00:00 AM EST Patient is a former smoker completed Patient is a former smoker [facility] ([facility], ) Smoking 12/06/2019 12:00:00 AM EDT Former Smoker completed Former Smoker eCW1 ([facility]) Smoking 12/06/2019 12:00:00 AM EDT Former Smoker completed Former Smoker eCW1 ([facility]) Smoking 12/06/2019 12:00:00 AM EDT Former Smoker completed Former Smoker eCW1 ([facility]) Smoking 12/06/2019 12:00:00 AM EDT Former Smoker completed Former Smoker eCW1 ([facility]) Smoking 12/06/2019 12:00:00 AM EDT Former Smoker completed Former Smoker eCW1 ([facility]) Smoking 12/06/2019 12:00:00 AM EDT Former Smoker completed Former Smoker eCW1 ([facility]) Smoking 12/06/2019 12:00:00 AM EDT Former Smoker completed Former Smoker eCW1 ([facility]) Smoking 12/06/2019 12:00:00 AM EDT Former Smoker completed Former Smoker eCW1 ([facility]) Smoking 12/06/2019 12:00:00 AM EDT Former Smoker completed Former Smoker eCW1 ([facility]) Smoking 12/06/2019 12:00:00 AM EDT Former Smoker completed Former Smoker eCW1 ([facility]) Smoking 12/06/2019 12:00:00 AM EDT Former Smoker completed Former Smoker eCW1 ([facility]) Smoking 12/06/2019 12:00:00 AM EDT Former Smoker completed Former Smoker eCW1 ([facility]) Smoking 12/06/2019 12:00:00 AM EDT Former Smoker completed Former Smoker eCW1 ([facility]) Smoking 12/06/2019 12:00:00 AM EDT Former Smoker completed Former Smoker eCW1 ([facility]) Smoking 12/06/2019 12:00:00 AM EDT Former Smoker completed Former Smoker eCW1 ([facility]) Smoking 12/06/2019 12:00:00 AM EDT Former Smoker completed Former Smoker eCW1 ([facility]) Smoking 12/06/2019 12:00:00 AM EDT Former Smoker completed Former Smoker eCW1 ([facility]) Smoking 12/06/2019 12:00:00 AM EDT Former Smoker completed Former Smoker eCW1 ([facility]) Smoking 12/06/2019 12:00:00 AM EDT Former Smoker completed Former Smoker eCW1 ([facility]) Smoking 11/27/2019 12:00:00 AM EDT Former Smoker completed Former Smoker eCW1 ([facility]) Smoking 08/04/2019 12:00:00 AM EDT Former Smoker completed Former Smoker eCW1 ([facility]) Smoking 08/04/2019 12:00:00 AM EDT Former Smoker completed Former Smoker eCW1 ([facility]) Smoking 08/04/2019 12:00:00 AM EDT Former Smoker completed Former Smoker eCW1 ([facility]) Smoking 07/28/2019 12:34:53 PM EDT Ex-smoker (finding) complet ed Ex-smoker (finding) WES (Bebeto Mcfadden MD [facility]) Smoking 05/22/2019 05:14:12 PM EDT Ex-smoker (finding) complet ed Ex-smoker (finding) WES (Bebeto Mcfadden MD [facility]) Smoking 05/22/2019 05:06:57 PM EDT Ex-smoker (finding) complet ed Ex-smoker (finding) WES (Bebeto Mcfadden MD [facility]) Smoking 05/22/2019 04:59:57 PM EDT Ex-smoker (finding) complet ed Ex-smoker (finding) WES (Bebeto Mcfadden MD [facility]) Smoking 05/22/2019 04:50:10 PM EDT Ex-smoker (finding) complet ed Ex-smoker (finding) WES (Bebeto Mcfadden MD [facility]) Smoking 05/22/2019 04:17:00 PM EDT Ex-smoker (finding) complet ed Ex-smoker (finding) WES (Bebeto Mcfadden MD [facility]) Smoking 05/22/2019 04:03:26 PM EDT Ex-smoker (finding) complet ed Ex-smoker (finding) WES (Bebeto Mcfadden MD [facility]) Smoking 05/22/2019 03:50:28 PM EDT Ex-smoker (finding) complet ed Ex-smoker (finding) WES (Bebeto Mcfadden MD [facility]) Vital Signs ID Date Data Source UNK Name Value Range Interpretation Code Description Data Source(s) Body surface area Derived from formula 1.67 m2 1.67 m2 [facility] ([facility]) Body weight 64.865 kg 64.865 kg [facility] ([facility]) [place] body weight 110 [lb_av] 110 [lb_av] [facility] ([facility]) Body mass index (BMI) [Ratio] 25.7 kg/m2 25.7 k g/m2 [facility] ([facility]) Body weight 143.00 [lb_av] 143.00 [lb_av] [facility] ([facility]) Body height 62.5 [in_i] 62.5 [in_i] [facility] ([facility]) 5'2.50" Oxygen saturation in Arterial blood by Pulse oximetry 97 % 97 % [facility] ([facility]) Heart rate 97 /min 97 /min [facility] ([facility]) Diastolic blood pressure 70 mm[Hg] 70 mm[Hg] [facility] ([facility]) Systolic blood pressure 122 mm[Hg] 122 mm[Hg] [facility] Body surface area Derived from formula 1.67 m2 1.67 m2 [facility] ([facility]) Body weight 64.638 kg 64.638 kg [facility] ([facility]) [place] body weight 110 [lb_av] 110 [lb_av] [facility] ([facility]) Body mass index (BMI) [Ratio] 25.6 kg/m2 25.6 k g/m2 [facility] ([facility]) Body weight 142.50 [lb_av] 142.50 [lb_av] [facility] ([facility]) Body height 62.5 [in_i] 62.5 [in_i] [facility] ([facility]) 5'2.50" Body temperature 96.8 [degF] 96.8 [degF] [facility] ([facility]) Oxygen saturation in Arterial blood by Pulse oximetry 96 % 96 % [facility] ([facility]) Heart rate 100 /min 100 /min [facility] ([facility]) Diastolic blood pressure 64 mm[Hg] 64 mm[Hg] [facility] ([facility]) Systolic blood pressure 122 mm[Hg] 122 mm[Hg] [facility] ([facility]) Body weight 65.999 kg 65.999 kg [facility] ([facility]) [place] body weight 110 [lb_av] 110 [lb_av] [facility] Body mass index (BMI) [Ratio] 26.2 kg/m2 26.2 k g/m2 [facility] ([facility]) Body weight 145.50 [lb_av] 145.50 [lb_av] [facility] Body height 62.5 [in_i] 62.5 [in_i] [facility] ([facility]) 5'2.50" Oxygen saturation in Arterial blood by Pulse oximetry 95 % 95 % [facility] ([facility]) Heart rate 87 /min 87 /min [facility] ([facility]) Diastolic blood pressure 60 mm[Hg] 60 mm[Hg] [facility] ([facility]) Systolic blood pressure 106 mm[Hg] 106 mm[Hg] [facility] Diastolic blood pressure 74 mm[Hg] 74 mm[Hg] eCW1 ([facility]) Systolic blood pressure 126 mm[Hg] 126 mm[Hg] e CW1 ([facility]) Body temperature 97.1 [degF] 97.1 [degF] eCW1 ( [facility]) Respiratory rate 18 /min 18 /min eCW1 ([facility]) Heart rate 90 /min 90 /min eCW1 ([facility]) Body mass index (BMI) [Ratio] 26.42 kg/m2 26.42 kg/m2 eCW1 ([facility]) Body height 62.5 [in_i] 62.5 [in_i] eCW1 ([facility]) Body weight 146.8 [lb_av] 146.8 [lb_av] eCW1 ([facility]) Diastolic blood pressure 66 mm[Hg] 66 mm[Hg] eCW1 ([facility]) Systolic blood pressure 110 mm[Hg] 110 mm[Hg] e CW1 ([facility]) Body temperature 97.1 [degF] 97.1 [degF] eCW1 ( [facility]) Respiratory rate 18 /min 18 /min eCW1 ([facility]) Heart rate 88 /min 88 /min eCW1 ([facility]) Body mass index (BMI) [Ratio] 26.85 kg/m2 26.85 kg/m2 eCW1 ([facility]) Body height 62.5 [in_i] 62.5 [in_i] eCW1 ([facility]) Body weight 149.2 [lb_av] 149.2 [lb_av] eCW1 ([facility]) Diastolic blood pressure 66 mm[Hg] 66 mm[Hg] eCW1 ([facility]) Systolic blood pressure 118 mm[Hg] 118 mm[Hg] e CW1 ([facility]) Body temperature 97.5 [degF] 97.5 [degF] eCW1 ( [facility]) Respiratory rate 18 /min 18 /min eCW1 ([facility]) Heart rate 100 /min 100 /min eCW1 ([facility]) Body mass index (BMI) [Ratio] 28.00 kg/m2 28.00 kg/m2 eCW1 ([facility]) Body height 62.5 [in_i] 62.5 [in_i] eCW1 ([facility]) Body weight 155.6 [lb_av] 155.6 [lb_av] eCW1 ([facility]) Diastolic blood pressure 60 mm[Hg] 60 mm[Hg] eCW1 ([facility]) Systolic blood pressure 112 mm[Hg] 112 mm[Hg] e CW1 ([facility]) Body temperature 98.3 [degF] 98.3 [degF] eCW1 ( [facility]) Respiratory rate 18 /min 18 /min eCW1 ([facility]) Heart rate 96 /min 96 /min eCW1 ([facility]) Body mass index (BMI) [Ratio] 28.11 kg/m2 28.11 kg/m2 eCW1 ([facility]) Body height 62.5 [in_us] 62.5 [in_us] eCW1 ([facility] Body weight Measured 156.2 [lb_av] 156.2 [lb_av ] eCW1 ([facility]) Respiratory rate 16 /min 16 /min [facility] ( [facility]) Heart rate 64 /min 64 /min [facility] ([facility] ) Diastolic blood pressure 60 mm[Hg] 60 mm[Hg] [facility] ([facility]) Systolic blood pressure 110 mm[Hg] 110 mm[Hg] M EDENT ([facility]) Respiratory rate 16 /min 16 /min [facility] ( [facility]) Heart rate 76 /min 76 /min [facility] ([facility]) Diastolic blood pressure 80 mm[Hg] 80 mm[Hg] [facility] ([facility]) Systolic blood pressure 110 mm[Hg] 110 mm[Hg] M EDENT ([facility] ) Patient Treatment Plan of Care Planned Activity Planned Date Details Description Data Source (s) Acetaminophen 325 MG / Hydrocodone Bitartrate 5 MG Ora l Tablet 02/02/2020 12:00:00 AM EST eCW1 ([facility]) Acetaminophen 325 MG / Hydrocodone Bitartrate 5 MG Ora l Tablet 02/02/2020 12:00:00 AM EST eCW1 ([facility]) Acetaminophen 325 MG / Hydrocodone Bitartrate 5 MG Ora l Tablet 02/02/2020 12:00:00 AM EST eCW1 ([facility]) Acetaminophen 325 MG / Hydrocodone Bitartrate 5 MG Ora l Tablet 02/02/2020 12:00:00 AM EST eCW1 ([facility]) Acetaminophen 325 MG / Hydrocodone Bitartrate 5 MG Ora l Tablet 02/02/2020 12:00:00 AM EST eCW1 ([facility]) Acetaminophen 325 MG / Hydrocodone Bitartrate 5 MG Ora l Tablet 02/02/2020 12:00:00 AM EST eCW1 ([facility]) Acetaminophen 325 MG / Hydrocodone Bitartrate 5 MG Ora l Tablet 02/02/2020 12:00:00 AM EST eCW1 ([facility]) Acetaminophen 325 MG / Hydrocodone Bitartrate 5 MG Ora l Tablet 02/02/2020 12:00:00 AM EST eCW1 ([facility]) Acetaminophen 325 MG / Hydrocodone Bitartrate 5 MG Ora l Tablet 02/02/2020 12:00:00 AM EST eCW1 ([facility]) Acetaminophen 325 MG / Hydrocodone Bitartrate 5 MG Ora l Tablet 01/02/2020 12:00:00 AM EST eCW1 ([facility]) Acetaminophen 325 MG / Hydrocodone Bitartrate 5 MG Ora l Tablet 01/02/2020 12:00:00 AM EST eCW1 ([facility]) Acetaminophen 325 MG / Hydrocodone Bitartrate 5 MG Ora l Tablet 12/15/2019 12:00:00 AM EDT eCW1 ([facility]) Acetaminophen 325 MG / Hydrocodone Bitartrate 5 MG Ora l Tablet 12/15/2019 12:00:00 AM EDT eCW1 ([facility]) Acetaminophen 325 MG / Hydrocodone Bitartrate 5 MG Ora l Tablet 12/15/2019 12:00:00 AM EDT eCW1 ([facility]) Acetaminophen 325 MG / Hydrocodone Bitartrate 5 MG Ora l Tablet 12/15/2019 12:00:00 AM EDT eCW1 ([facility]) Albuterol Sulfate 108 (90 Base) MCG/ACT 11/27/2019 12:00:00 AM EDT eCW1 ([facility]) Prednisone 20 MG Oral Tablet 11/27/2019 12:00:00 AM EDT eCW1 ([facility]) besifloxacin 6 MG/ML Ophthalmic Suspension [Besivance] 06/03/2018 12:00:00 AM EDT [facility] (Bebeto Mcfadden MD [facility]) BromSite 0.075% Ophthalmic Solution 06/03/2018 12:00:00 AM EDT [facility] (Bebeto Mcfadden MD [facility]) prednisolone acetate 10 MG/ML Ophthalmic Suspension [P red Forte] 06/03/2018 12:00:00 AM EDT [facility] (Bebeto Mcfadden MD [facility])
--- NOTE | 2020-03-25 20:54 | ECGEPIP ---
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
[2020-03-25] MEDS: HumaLOG INSULIN (NovoLOG) PER UNIT SC SCH (21:00)
[2020-03-25] MEDS ORDERED: LEVALBUTEROL 1.25 MG/0.5 ML CONCENTRATE NEB INH PRN (21:15)
[2020-03-25 21:20] LABS: NT-PRO BNP 670 PG/ML (<125)
--- NOTE | 2020-03-25 21:30 | HPEPDOC ---
[facility] Medical History & Physical Date of Admission Mar 25, 2020 Date of Service: Mar 25, 2020 Attending Physician: JESSIE COSME MD History and Physical TIME OF SERVICE: 8:55 PM CHIEF COMPLAINT:, Shortness of breath HISTORY OF PRESENT ILLNESS: Ms. Gómez is a 69-year-old female with a history of COPD & stage IV adenocarcinoma of the lung with chronic bronchial obstruction, postobstructive atelectasis and a chronic loculated pleural effusion. She was admitted to [facility] on January 26, February 26, and March 11 with complaints of shortness of breath. which was attributed to the lung cancer with associated bronchial obstruction, postobstructive atelectasis and effusion. During her admission in January Dr. Samuel placed a chest tube, during the more recent admissions, it was felt that her shortness of breath may be partially due to radiation and/or Keytruda. Today she presented with complaints of 3-4 week in duration, shortness of breath that is made worse with movement. She feels frustrated because her shortness of breath makes it difficult for her to talk to her and stated that she came to the hospital today because her breathing "stopped". She also reported having chest pressure and a runny nose. She denied having fevers, chills, or lower extremity swelling. Per ER intake notes her called EMS because she was lightheaded; when EMS evaluated her her O2 sats were only 88% on 4 L. REVIEW OF SYSTEMS: 12 point review of systems negative except as listed in HPI PAST MEDICAL/ SURGICAL HISTORY: Stage IV adenocarcinoma of the lung PDL 1 + / EGFR K-vinod BRAF and ROS 1 negative with right sided postobstructive atelectasis and chronic effusion Radiation esophagitis Long-standing persistent atrial fibrillation NIDDM with neuropathy COPD / childhood asthma TRINY not compliant with CPAP Essential tremor Depression History of Peripartum cardiomyopathy /Pulmonary HTN Bilateral cataract surgery Right knee arthroplasty Left foot bunionectomy Left wrist fracture SOCIAL HISTORY: She used to to smoke 1-1/2-2 packs a day for 25 years and quit in 1989 She doesn't drink alcohol or use recreational drugs. 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 FAMILY HISTORY: Her father had lung cancer, dyslipidemia and an [place] Her brother had emphysema and metastatic lung cancer Her mother had back problems ALLERGIES: Please see below. HOME MEDICATIONS: Please see below. PHYSICAL EXAMINATION: VITAL SIGNS: Date Time Temp Pulse Resp B/P (MAP) Pulse Ox O2 Delivery O2 Flow Rate FiO2 03/25/20 19:23 108 100 03/25/20 19:15 128/62 (84) 03/25/20 16:01 96.1 20 GEN: Slim build/ well developed/ NAD INTEGUMENT: She doesn't have facial plethora HEENT:NCAT / lips are not cyanotic /She doesn't have pursed lip breathing / NC in place / mucus membranes moist and pink / sclera anicteric CVS: RRR/ radial and dorsalis pedis pulses intact / no lower extremity edema LUNGSShe doesn't have flairing / She is not able to speak full sentences without stopping to take a breath / coughing / using accessory muscles / there is decreased respiratory expansion ABDOMEN: soft & not tender with palpation MSK/EXTREMITIES: NCAT NEURO: CN 2-12 are grossly intact / speech is not dysarthric PSYCH: alert and oriented to person place and time/ able to understand and follow all commands LABORATORY DATA: 03/25/20 16:07 Immature Granulocyte % (Auto) 1.4, Neutrophils (%) (Auto) 79.4H, Lymphocytes (%) (Auto) 4.1L, Monocytes (%) (Auto) 7.3H, Eosinophils (%) (Auto) 7.4H, Basophils (%) (Auto) 0.4, Neutrophils # (Auto) 14.9H, Lymphocytes # (Auto) 0.8L, Monocytes # (Auto) 1.4H, Eosinophils # (Auto) 1.4H, Basophils # (Auto) 0.1, Nucleated Red Blood Cells % (auto) 0.0, Anion Gap 9, Glomerular Filtration Rate > 60.0, Calcium Level 10.3H, Total Creatine Kinase 40, Creatine Kinase MB < 1.0, Creatine Kinase MB Relative Index 2.50, Troponin I < 0.02, VQ-Ypd-Q-Type Natriuretic Peptide 670H 03/25/20 16:27: SARS Antigen (LFIA) NEGATIVE 03/25/20 17:01: POC pH (Misc Panel) 7.487H, POC Base Excess (Misc Panel) 14.0H, POC Saturated Percent O2 (Misc) 99H, POC pO2 (Misc Panel) 117.0H, POC pCO2 (Misc Panel) 48.9H, POC HCO3 (Misc Panel) 37.0H, POC Total CO2 (Misc Panel) 38.0H IMAGING: Chest x-ray "IMPRESSION: Right pleural based density and bilateral infiltrates appear essentially unchanged" CTA of the chest "IMPRESSION: 1. Mild loculated right pleural effusion with resolution of the pneumothorax component since 02/27/2020. 2. Complete atelectasis of the right middle lobe with bronchiectasis and central bronchial stenosis or occlusion. There is near complete atelectasis of the right lower lobe with some right lower lobe bronchial plugging and is similar to the prior study. 3. Coarse pulmonary interstitium with scattered areas of ground-glass infiltrate and consolidation which is slightly increased overall since the prior study. 4. Mildly prominent main pulmonary artery measuring 35 mm which may be seen with pulmonary hypertension. 5. No interval pulmonary embolism is identified." MICROBIOLOGY: Respiratory panel negative/blood cultures pending ASSESSMENT: Ms. Gómez is a 69-year-old with a history of stage IV adenocarcinoma radiation esophagitis, atrial fibrillation, NIDDM, neuropathy, COPD, TRINY, essential tremor, depression, and peripartum cardiomyopathy who presented with complaints of shortness of breath and will be admitted for management of dyspnea likely due to a combination of lung cancer, postobstructive pneumonia, chronic pleural effusion and possibly acute COPD. PLAN: 1. Stage IV adenocarcinoma of the lung PDL 1 + / EGFR K-vinod BRAF and ROS 1 negative with right sided postobstructive atelectasis and chronic effusion I discussed the case with Dr. Samuel, who reported there is not much that can be done for this patient with regards to the effusion. Plan: admit to medical floor/the daytime team may try touch base with oncology in the morning to see what the long-term plan is and if she is a candidate to transition to palliative and hospice / Oxycodone for pain and dyspnea 2. SIRS possibly reactive vs secondary to worsening postobstructive pneumonia SIRS criteria include tachycardia, leukocytosis CT reported that the infiltrate has increased in size Plan:Ceftriaxone, azithromycin and vancomycin pending. MRSA, sputum, strep pneuma, and legionella results / Follow-up blood cultures and lactic acid / acapella 3. Acute COPD / childhood asthma Plan: supplemental O2 / continuous pulse oximetry / aspiration precautions / f/u VBG/ DuoNeb Q6H,, levalbuterol Q2HP, Prednisone + PPI 4. Hyperkalemia Plan: f/u repeat K 5. Radiation esophagitis Plan: magic mouth wash / liquid diet 6. Paroxysmal atrial fibrillation ? Her CHADSVASC score is 5. For unclear reasons, she is not an anticoagulation Plan: Pending confirming the patient's goals of care, the daytime team may consider touching base with the patient's PCP to discuss AC 7. NIDDM with neuropathy A1C was 6.1% in Sep Plan: f/u accuchecks / hypoglycemia protocol / sliding scale insulin / f/u A1C (in order to avoid hypoglycemia her target is closer to 8.5%, she is is frail and has a reduced life expectancy) and consider discontinuing metformin and glipizide/ Gabapentin for neuropathy 8. HTN ? Plan: Metoprolol, Lisinopril 9. Depression Plan: Venlafaxine 10. History of Peripartum cardiomyopathy / Pulmonary HTN Plan: Furosemide DVT PROPHYLAXIS: lovenox DISPOSITION: home after more than 2 midnight's stay Home Medications Scheduled Aspirin (Aspirin EC) 81 Mg Tablet.dr, 81 MG PO DAILY Atorvastatin Calcium (Atorvastatin Calcium) 40 Mg Tablet, 40 MG PO DAILY Budesonide/Formoterol (Symbicort 160-4.5 Mcg Inhaler) 6 Gm Hfa.aer.ad, 2 PUFF INH BID Calcium Carbonate/Vitamin D3 (Calcium 600+D Softgel) 1 Each Capsule, 1 CAP PO BID Dulaglutide (Trulicity) 0.75 Mg/0.5 Ml Pen.injctr, 0.75 MG SC QWEEK SUNDAYS Fluticasone/Vilanterol (Breo Ellipta 100-25 Mcg INH) 1 Each Blst.w.dev, 1 PUFF INH DAILY Furosemide (Furosemide) 40 Mg Tablet, 40 MG PO DAILY Gabapentin (Gabapentin) 100 Mg Capsule, 200 MG PO BID Glipizide (Glipizide ER) 5 Mg Tab.er.24, 5 MG PO DAILY Lisinopril (Lisinopril) 5 Mg Tablet, 5 MG PO DAILY Magnesium Oxide (Magnesium Oxide) 400 Mg Tablet, 400 MG PO DAILY Metformin HCl (Metformin HCl) 1,000 Mg Tab, 1,000 MG PO BID Metoprolol Succinate (Metoprolol Succinate) 25 Mg Tab.er.24h, 25 MG PO QHS Venlafaxine HCl (Venlafaxine HCl ER) 150 Mg Cap, 150 MG PO DAILY Scheduled PRN Fluticasone Propionate (Fluticasone Propionate) 50 Mcg/Act Spr, 1 SPRAY NARES QHS PRN for CONGESTION Ipratropium/Albuterol Sulfate (Combivent Respimat 20-100 Mcg) 4 Gm Mist.inhal, 2 PUFF INH QID PRN for SHORTNESS OF BREATH Magic Mouthwash (First-Mouthwash Blm) 1 Ea Susp, 10 ML SSP QID PRN for MUCOSITIS (Diphenhydramine/maalox/lidocaine 1:1:1) May compound if kit unavailable/not covered by insurance Oxycodone HCl (Oxycodone HCl) 5 Mg/5 Ml Solution, 5 MG PO Q4H PRN for PAIN Allergies Coded Allergies: Penicillins (Verified Allergy, Intermediate, HIVES, 03/25/20) nickel (Verified Allergy, Intermediate, rash, swelling, 03/25/20) aspirin (Verified Adverse Reaction, Intermediate, HIVES WITH NORMAL DOSE FOR SEVERAL DAYS, 03/25/20) TAKES 81MG AT HOME DAILY A-FIB/CHADSVASC A-FIB History Current/History of A-Fib/PAF?: Yes Current PO Anticoag Therapy: No Age/Risk Factor Scoring CHADSVASC: CHADSVASC Response (Comments) Value Age Risk Factor Age 65-74 years old 1 Gender Risk Factor Female 1 Hx of CHF Yes 1 Hx of HTN Yes 1 Hx of Stroke/TIA/or VTE No 0 Hx of Diabetes Yes 1 Hx of Vascular Disease No 0 Total 5 Treatment Treatment ordered: NONE Other anticoagulant ordered: pending confirming goals of care Reason Anticoagulant not given: Other (pending confirming goals of care) Other reason anticoagulant not: pending goals of care JESSIE COSME MD Mar 25, 2020 21:30
[2020-03-25 21:57] LABS: VENOUS BASE EXCESS 5.3 (-2.0-2.0); VENOUS HCO3 28.9 MEQ/L (23.0-27.0); VENOUS PARTIAL PRESSURE CO2 38.7 mmHg (38.0-50.0); VENOUS PARTIAL PRESSURE O2 145.7 mmHg (30.0-50.0); VENOUS PH 7.491 UNITS (7.330-7.430); VENOUS STANDARD HCO3 29.3 MEQ/L; VENOUS TOTAL CO2 30.1 MEQ/L (24.0-28.0)
--- NOTE | 2020-03-25 22:53 | REPVR ---
PROCEDURE INFORMATION: Exam: CT Angiography Chest With Contrast Exam date and time: 03/25/2020 10:34 PM Age: 69 years old Clinical indication: Dyspnea; Additional info: Dyspnea R/O pe TECHNIQUE: Imaging protocol: Computed tomographic angiography of the chest with contrast. 3D rendering (Not supervised by radiologist): MIP and/or 3D reconstructed images were created by the technologist. Radiation optimization: All CT scans at this facility use at least one of these dose optimization techniques: automated exposure control; mA and/or kV adjustment per patient size (includes targeted exams where dose is matched to clinical indication); or iterative reconstruction. Contrast material: ISOVUE 370; Contrast volume: 75 ml; Contrast route: INTRAVENOUS (IV); COMPARISON: CT ANGIO CHEST 02/27/2020 7:22 PM FINDINGS: Pulmonary arteries: The main pulmonary artery measures 36 mm. No pulmonary embolism is identified. Aorta: The ascending thoracic aorta measures 33 mm. Lungs: Near complete atelectasis of the right lower lobe and complete atelectasis of the right middle lobe with bronchiectasis and central bronchial narrowing or occlusion of the right middle lobe bronchi. There is some bronchial plugging of the atelectatic right lower lobe as well. Coarse interstitium with scattered areas of ground-glass infiltrate and focal consolidation in the remaining lungs. Pleural spaces: Mild loculated right pleural effusion with pleural rind. Heart: Unremarkable. No cardiomegaly. No pericardial effusion. Lymph nodes: Unremarkable. No enlarged lymph nodes. Kidneys and ureters: Incomplete visualization of a right renal cyst measuring at least 13 mm. Bones/joints: Unremarkable. No acute fracture. Soft tissues: Unremarkable. IMPRESSION: 1. Mild loculated right pleural effusion with resolution of the pneumothorax component since 02/27/2020. 2. Complete atelectasis of the right middle lobe with bronchiectasis and central bronchial stenosis or occlusion. There is near complete atelectasis of the right lower lobe with some right lower lobe bronchial plugging and is similar to the prior study. 3. Coarse pulmonary interstitium with scattered areas of ground-glass infiltrate and consolidation which is slightly increased overall since the prior study. 4. Mildly prominent main pulmonary artery measuring 35 mm which may be seen with pulmonary hypertension. 5. No interval pulmonary embolism is identified. COMMENTS: Consistent with the [employer]'s Incidental Findings Committee white paper (J Am Lu Radiol 2018): Any incidental renal lesion less than 1 cm or classified as too small to characterize, or any incidental cystic renal lesion characterized as simple-appearing, is likely benign. No follow-up imaging is recommended for these lesions per consensus recommendations based on imaging criteria. Electronically signed by: Raymond Gomez On 03/25/2020 22:52:07 PM
[2020-03-25 23:12] VITALS: BP 126/59
[2020-03-25] MEDS ORDERED: FLUID PLACE HOLDER IV SCH (23:45)
[2020-03-25] MEDS ORDERED: MAGIC MOUTHWASH SUSPENSION BTL SSP PRN (23:45)
[2020-03-25] MEDS ORDERED: FLUTICASONE PROP 0.05% NASAL SPRAY 16 GM (FLONASE) NARES PRN (23:45)
[2020-03-25] MEDS ORDERED: VANCOMYCIN HCL IV SCH (23:45)
[2020-03-25 23:54] VITALS: O2SAT 90
[2020-03-26] MEDS ORDERED: VANCOMYCIN HCL 1,000 MG, VIAL MATE ADAPTER 1 EACH in D5W 250 ML IV ONE ×3
[2020-03-26] MEDS: GABAPENTIN 100 MG CAP PO SCH ×3 (00:19→20:05)
[2020-03-26] MEDS: methylPREDNISolone 125MG 2ML VIAL IV SCH ×2 (00:19→06:03)
[2020-03-26] MEDS: METOPROLOL SUCC *XL* 25MG TAB (TopROL *XL*) PO SCH ×2 (00:21→20:06)
[2020-03-26] MEDS: LevoFLOXacin IV 500 MG in IV 1 EA IV SCH ×2 (01:37→22:10)
[2020-03-26] MEDS: IPRATROPIUM 0.5MG/ALBUTEROL 2.5MG INH SOL UD 3ML (DUONEB) NEB SCH ×4 (01:47→18:00)
[2020-03-26 04:25] LABS: VENOUS BASE EXCESS 7.3 (-2.0-2.0); VENOUS HCO3 31.5 MEQ/L (23.0-27.0); VENOUS O2 SATURATION 99.5 % (60.0-80.0); VENOUS PARTIAL PRESSURE O2 177.4 mmHg (30.0-50.0); VENOUS PH 7.483 UNITS (7.330-7.430); VENOUS STANDARD HCO3 31.2 MEQ/L; VENOUS TOTAL CO2 32.8 MEQ/L (24.0-28.0)
[2020-03-26 04:32] LABS: HEMATOCRIT 32.9 % (36.0-47.0); MEAN CORPUSCULAR HEMOGLOBIN 26.4 pg (27.0-33.0); MEAN CORPUSCULAR HGB CONC 30.7 g/dl (32.0-36.5); MEAN CORPUSCULAR VOLUME 86.1 fl (80.0-96.0); PLATELET COUNT, AUTOMATED 224 10^3/uL (150-450); RED BLOOD COUNT 3.82 10^6/uL (4.00-5.40); WHITE BLOOD COUNT 15.9 10^3/uL (4.0-10.0)
[2020-03-26 04:40] LABS: HEMOGLOBIN 10.1 g/dl (12.0-15.5)
[2020-03-26 04:45] LABS: INR 1.22; PROTHROMBIN TIME 15.7 SECONDS (12.5-14.3)
[2020-03-26 04:47] LABS: HEMOGLOBIN A1c 6.1 %
[2020-03-26 04:56] LABS: BLOOD UREA NITROGEN 22 MG/DL (7-18); CALCIUM LEVEL 8.8 MG/DL (8.8-10.2); CARBON DIOXIDE LEVEL 33 MEQ/L (21-32); CHLORIDE LEVEL 101 MEQ/L (98-107); CREATININE FOR GFR 0.45 MG/DL (0.55-1.30); GLOMERULAR FILTRATION RATE > 60.0 (>39); GLUCOSE, FASTING 163 MG/DL (70-100); POTASSIUM SERUM 4.5 MEQ/L (3.5-5.1); SODIUM LEVEL 140 MEQ/L (136-145)
[2020-03-26 06:00] VITALS: BP 130/67
[2020-03-26] MEDS: oxyCODONE 5MG TAB PO PRN ×4 (06:51→20:06)
[2020-03-26 09:00] VITALS: O2SAT 94
[2020-03-26] MEDS ORDERED: predniSONE 20 MG TAB PO SCH (09:00)
[2020-03-26] MEDS: PANTOPRAZOLE 40MG TAB (PROTONIX) PO SCH (09:10)
[2020-03-26] MEDS: HumaLOG INSULIN (NovoLOG) PER UNIT SC SCH ×4 (09:10→21:00)
[2020-03-26] MEDS: ASPIRIN 81 MG ENTERIC TAB PO SCH (09:10)
[2020-03-26] MEDS: guaiFENesin ER 600 MG TAB PO SCH ×2 (09:10→20:07)
[2020-03-26] MEDS: MAGNESIUM OXIDE 400MG TAB (MAG-OX) PO SCH (09:10)
[2020-03-26] MEDS: VENLAFAXINE **XR** 75MG CAPSULE PO SCH (09:10)
[2020-03-26] MEDS: ENOXAPARIN 40MG/0.4ML SYRINGE (J1650 PER 10MG) SC SCH (09:11)
[2020-03-26] MEDS: ATORVASTATIN 20 MG TAB PO SCH (09:11)
[2020-03-26] MEDS: FUROSEMIDE 40 MG TAB PO SCH (09:11)
[2020-03-26] MEDS: lisinopriL 5 MG TAB PO SCH (09:13)
[2020-03-26] MEDS ORDERED: guaiFENesin/CODEINE SYRUP 5 ML UDC PO PRN (10:00)
[2020-03-26] MEDS ORDERED: VANCOMYCIN HCL 1,000 MG, VIAL MATE ADAPTER 1 EACH in D5W 250 ML IV SCH (12:00)
--- NOTE | 2020-03-26 13:33 | IPNPDOC ---
Date Seen The patient was seen on 03/26/20. Progress Note SUBJECTIVE: Complains of significant dyspnea, unable to get out of bed . No fever, chills. Denies chest pain, pressure, tightness. Has a cough, which is difficult to expectorate. c/o dysphagia on modified diet. OBJECTIVE PHYSICAL EXAMINATION: VITAL SIGNS: Please see below. GENERAL: Cachectic bitemporal wasting. Positive using respiratory accessory muscles sitting at 90 on hospital bed HEENT: Dry mucous membranes, no JVD or thyromegaly CARDIOVASCULAR: S1, S2, regular rate and rhythm RESPIRATORY: Diminished bilateral, coarse breath sounds ABDOMINAL: Positive bowel sounds, soft, nontender, nondistended EXTREMITIES: No cyanosis or clubbing. No pitting edema LABORATORY DATA, IMAGING STUDIES, MICROBIOLOGY: Please see below. 03/25/20CT CHEST COMPARISON: CT ANGIO CHEST 02/27/2020 7:22 PM FINDINGS: Pulmonary arteries: The main pulmonary artery measures 36 mm. No pulmonary embolism is identified. Aorta: The ascending thoracic aorta measures 33 mm. Lungs: Near complete atelectasis of the right lower lobe and complete atelectasis of the right middle lobe with bronchiectasis and central bronchial narrowing or occlusion of the right middle lobe bronchi. There is some bronchial plugging of the atelectatic right lower lobe as well. Coarse interstitium with scattered areas of ground-glass infiltrate and focal consolidation in the remaining lungs. Pleural spaces: Mild loculated right pleural effusion with pleural rind. Heart: Unremarkable. No cardiomegaly. No pericardial effusion. Lymph nodes: Unremarkable. No enlarged lymph nodes. Kidneys and ureters: Incomplete visualization of a right renal cyst measuring at least 13 mm. Bones/joints: Unremarkable. No acute fracture. Soft tissues: Unremarkable. IMPRESSION: 1. Mild loculated right pleural effusion with resolution of the pneumothorax component since 02/27/2020. 2. Complete atelectasis of the right middle lobe with bronchiectasis and central bronchial stenosis or occlusion. There is near complete atelectasis of the right lower lobe with some right lower lobe bronchial plugging and is similar to the prior study. 3. Coarse pulmonary interstitium with scattered areas of ground-glass infiltrate and consolidation which is slightly increased overall since the prior study. 4. Mildly prominent main pulmonary artery measuring 35 mm which may be seen with pulmonary hypertension. 5. No interval pulmonary embolism is identified. COMMENTS: Consistent with the [employer]'s Incidental Findings Committee white paper (J Am Lu Radiol 2018): Any incidental renal lesion less than 1 cm or classified as too small to characterize, or any incidental cystic renal lesion characterized as simple-appearing, is likely benign. No follow-up imaging is recommended for these lesions per consensus recommendations based on imaging criteria. Electronically signed by: Raymond Gomez On 03/25/2020 22:52:07 PM ASSESSMENT AND PLAN: 69 yo F with a hx of stage 4 adenocarcinoma of lung with bronchial obstruction, post obstructive atelectasis, loculated pleural effusion, chronic SOB, afib , Dm2, presented to [facility] ER with progressively worsening shortness of breath , admitted for mucus plugging. Bronchiectasis, possible postobstructive pneumonia in the setting of stage IV lung cancer. Bronchiectasis / Mucus plugging -atelectasis of the right middle lobe, rightlower lobe bronchialplutting -central bronchial stenosis or occlusion. -aggressive pulmonary toilet with acapella, chest physiotherapy Acute Hypoxic respiratory failure -on supplemental oxygen to keep o2 sat 90-92% -due to stage 4 lung ca, bronchiectasis, pulm HTN, pleural effusion possible postobstructive pneumonia -nebs, pulmonary toilet, abx. Possible postobstructive pneumonia -scattered ground glass infiltrate and consolidation Mild loculated right pleural effusion - resolution of the pneumothorax component since 02/27/2020. -Right sided persistent loculated pleural effusion with pigtail placement in jan 2020. Stage 4 poorly differentiated adenocarcinoma of the right lung at the hilum, occluding the right lower lobe bronchus and bronchus intermedius, involving the subcarinal nodes and pleura, which shows an 80% PD-L1 positivity, on RT and Keytruda Dysphagia -speech eval to r/o aspiration -aspiration precautions. Severe Protein calorie malnutrition/ cancer and pulmonary cachexia - > 10 kg weight loss in 2 months -regular diet paroxysmal A. fib -on asa -rate controlled HTN -on metoproool DLP -atorvastatin NIDDM2 -regular diet due to protein calorie malnutrition COPD / Childhood asthma -on iv solumedrol antibiotics TRINY not on CPAP Neuropathy / Essential tremor Mood disorder Mild aortic stenosis and aortic insufficiency. pulmonary hypertension -complicating care. code: dnr/dni VS, I&O, 24H, Fishbone Vital Signs/I&O Vital Signs Date Time Temp Pulse Resp B/P (MAP) Pulse Ox O2 Delivery O2 Flow Rate FiO2 03/26/20 11:25 19 Room Air 03/26/20 09:13 136/76 03/26/20 09:00 94 2.0 03/26/20 06:00 98.4 97 I&O- Last 24 Hours up to 6 AM 03/26/20 06:00 Intake Total 1330 ml Output Total 150 ml Balance 1180 ml Laboratory Data 24H LABS Laboratory Tests 2 03/25/20 16:07: Immature Granulocyte % (Auto) 1.4, Neutrophils (%) (Auto) 79.4H, Lymphocytes (%) (Auto) 4.1L, Monocytes (%) (Auto) 7.3H, Eosinophils (%) (Auto) 7.4H, Basophils (%) (Auto) 0.4, Neutrophils # (Auto) 14.9H, Lymphocytes # (Auto) 0.8L, Monocytes # (Auto) 1.4H, Eosinophils # (Auto) 1.4H, Basophils # (Auto) 0.1, Nucleated Red Blood Cells % (auto) 0.0, Anion Gap 9, Glomerular Filtration Rate > 60.0, Calcium Level 10.3H, Total Creatine Kinase 40, Creatine Kinase MB < 1.0, Creatine Kinase MB Relative Index 2.50, Troponin I < 0.02, HC-Gjk-Q-Type Natriuretic Peptide 670H 03/25/20 16:27: SARS Antigen (LFIA) NEGATIVE 03/25/20 17:01: POC pH (Misc Panel) 7.487H, POC Base Excess (Misc Panel) 14.0H, POC Saturated Percent O2 (Misc) 99H, POC pO2 (Misc Panel) 117.0H, POC pCO2 (Misc Panel) 48.9H, POC HCO3 (Misc Panel) 37.0H, POC Total CO2 (Misc Panel) 38.0H 03/25/20 21:45: Blood Gas Puncture Site UNKNOWN, Blood Gas Bicarbonate Standard 29.3, Venous Blood pH 7.491H, Venous Blood Partial Pressure CO2 38.7, Venous Blood Partial Pressure O2 145.7H, Venous Blood Total Carbon Dioxide 30.1H, Venous Blood HCO3 28.9H, Venous Blood Oxygen Saturation 99.0H, Venous Blood Base Excess 5.3H, Lactic Acid Level 1.4 03/25/20 21:50: Bedside Glucose (Misc Panel) 127H 03/26/20 04:14: Nucleated Red Blood Cells % (auto) 0.0, Prothrombin Time 15.7H, Prothromb Time International Ratio 1.22, Blood Gas Bicarbonate Standard 31.2, Venous Blood pH 7.483H, Venous Blood Partial Pressure CO2 43.0, Venous Blood Partial Pressure O2 177.4H, Venous Blood Total Carbon Dioxide 32.8H, Venous Blood HCO3 31.5H, Venous Blood Oxygen Saturation 99.5H, Venous Blood Base Excess 7.3H, Anion Gap 6L, Glomerular Filtration Rate > 60.0, Estimated Mean Plasma Glucose 128H, Hemoglobin A1c 6.1, Calcium Level 8.8 03/26/20 06:03: Methicillin-Resist S.aureus DNA PCR NOT DETECTED 03/26/20 11:30: Lab Scanned Report Miscellaneous Lab 03/26/20 12:08: Bedside Glucose (Misc Panel) 129H CBC/BMP Laboratory Tests 03/25/20 16:07 03/25/20 21:45 03/26/20 04:14 Microbiology Microbiology 03/25/20 Blood Culture, Received Pending 03/25/20 Respiratory Virus Panel (PCR) (MELISSA) - Final, Complete ARACELI CHEN MD Mar 26, 2020 13:30
[2020-03-26 14:00] VITALS: BP 116/69
[2020-03-26] MEDS: methylPREDNISolone 40MG 1ML VIAL IV SCH (18:20)
[2020-03-26 22:00] VITALS: BP 109/52
[2020-03-26 22:23] VITALS: O2SAT 95
[2020-03-27] MEDS: IPRATROPIUM 0.5MG/ALBUTEROL 2.5MG INH SOL UD 3ML (DUONEB) NEB SCH ×4 (01:08→20:49)
[2020-03-27] MEDS: oxyCODONE 5MG TAB PO PRN ×3 (05:35→21:05)
[2020-03-27] MEDS: methylPREDNISolone 40MG 1ML VIAL IV SCH ×2 (05:35→17:16)
[2020-03-27 06:00] VITALS: BP 104/58
[2020-03-27 06:54] LABS: INR 1.25
[2020-03-27] MEDS: HumaLOG INSULIN (NovoLOG) PER UNIT SC SCH ×4 (07:22→20:29)
[2020-03-27] MEDS: VENLAFAXINE **XR** 75MG CAPSULE PO SCH (08:16)
[2020-03-27] MEDS: MAGNESIUM OXIDE 400MG TAB (MAG-OX) PO SCH (08:16)
[2020-03-27] MEDS: guaiFENesin ER 600 MG TAB PO SCH ×2 (08:16→21:05)
[2020-03-27] MEDS: lisinopriL 5 MG TAB PO SCH (08:16)
[2020-03-27] MEDS: ASPIRIN 81 MG ENTERIC TAB PO SCH (08:16)
[2020-03-27] MEDS: PANTOPRAZOLE 40MG TAB (PROTONIX) PO SCH (08:16)
[2020-03-27] MEDS: ATORVASTATIN 20 MG TAB PO SCH (08:16)
[2020-03-27] MEDS: GABAPENTIN 100 MG CAP PO SCH ×2 (08:16→21:05)
[2020-03-27] MEDS: FUROSEMIDE 40 MG TAB PO SCH (08:16)
[2020-03-27] MEDS: ENOXAPARIN 40MG/0.4ML SYRINGE (J1650 PER 10MG) SC SCH (08:17)
[2020-03-27 09:23] VITALS: O2SAT 92
--- NOTE | 2020-03-27 09:46 | IPNPDOC ---
Date Seen The patient was seen on 03/27/20. Progress Note SUBJECTIVE: Patient was seen and examined the bedside chart it's been reviewed. She is currently speaking with her with no use of respiratory accessory muscles. No coughing at the bedside. No fever, chills overnight. Patient has been compliant with using the chest physiotherapy, And a cappella and has had increasing clearance of her mucus. No other complaints overnight. She denies any chest pain, pressure, tightness, lightheadedness or dizziness. OBJECTIVE PHYSICAL EXAMINATION: VITAL SIGNS: Please see below. GENERAL: Cachectic bitemporal wasting.. No use of respiratory accessory muscles. No distress HEENT: Dry mucous membranes, no JVD or thyromegaly CARDIOVASCULAR: S1, S2, regular rate and rhythm RESPIRATORY: Diminished bilateral, fine crepitations at the bases ABDOMINAL: Positive bowel sounds, soft, nontender, nondistended EXTREMITIES: No cyanosis or clubbing. No pitting edema LABORATORY DATA, IMAGING STUDIES, MICROBIOLOGY: Please see below. 03/25/20CT CHEST COMPARISON: CT ANGIO CHEST 02/27/2020 7:22 PM FINDINGS: Pulmonary arteries: The main pulmonary artery measures 36 mm. No pulmonary embolism is identified. Aorta: The ascending thoracic aorta measures 33 mm. Lungs: Near complete atelectasis of the right lower lobe and complete atelectasis of the right middle lobe with bronchiectasis and central bronchial narrowing or occlusion of the right middle lobe bronchi. There is some bronchial plugging of the atelectatic right lower lobe as well. Coarse interstitium with scattered areas of ground-glass infiltrate and focal consolidation in the remaining lungs. Pleural spaces: Mild loculated right pleural effusion with pleural rind. Heart: Unremarkable. No cardiomegaly. No pericardial effusion. Lymph nodes: Unremarkable. No enlarged lymph nodes. Kidneys and ureters: Incomplete visualization of a right renal cyst measuring at least 13 mm. Bones/joints: Unremarkable. No acute fracture. Soft tissues: Unremarkable. IMPRESSION: 1. Mild loculated right pleural effusion with resolution of the pneumothorax component since 02/27/2020. 2. Complete atelectasis of the right middle lobe with bronchiectasis and central bronchial stenosis or occlusion. There is near complete atelectasis of the right lower lobe with some right lower lobe bronchial plugging and is similar to the prior study. 3. Coarse pulmonary interstitium with scattered areas of ground-glass infiltrate and consolidation which is slightly increased overall since the prior study. 4. Mildly prominent main pulmonary artery measuring 35 mm which may be seen with pulmonary hypertension. 5. No interval pulmonary embolism is identified. COMMENTS: Consistent with the [employer]'s Incidental Findings Committee white paper (J Am Lu Radiol 2018): Any incidental renal lesion less than 1 cm or classified as too small to characterize, or any incidental cystic renal lesion characterized as simple-appearing, is likely benign. No follow-up imaging is recommended for these lesions per consensus recommendations based on imaging criteria. 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 Bronchiectasis, possible postobstructive pneumonia in the setting of stage IV lung cancer. Bronchiectasis / Mucus plugging -atelectasis of the right middle lobe, rightlower lobe bronchialplutting -central bronchial stenosis or occlusion. -Patient is doing much better with aggressive pulmonary toilet with acapella, chest physiotherapy -She is able to clear her secretions a lot better today than yesterday. -No increased need for oxygen overnight. Acute Hypoxic respiratory failure -on supplemental oxygen to keep o2 sat 90-92% -due to stage 4 lung ca, bronchiectasis, pulm HTN, pleural effusion possible postobstructive pneumonia -nebs, pulmonary toilet, abx. Possible postobstructive pneumonia -scattered ground glass infiltrate and consolidation -On IV antibiotics, afebrile, no chills overnight Mild loculated right pleural effusion - resolution of the pneumothorax component since 02/27/2020. -Right sided persistent loculated pleural effusion with pigtail placement in jan 2020. 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 Elliott CASTRO has been consulted and recommended hospice referral -Patient family services has been consulted for hospice referral Dysphagia -speech eval on 03/26/2020: Okay to have thin liquids and pure diet Severe Protein calorie malnutrition/ cancer and pulmonary cachexia - > 10 kg weight loss in 2 months -regular diet paroxysmal A. fib -on asa -rate controlled HTN -on metoproool DLP -atorvastatin NIDDM2 -regular diet due to protein calorie malnutrition COPD / Childhood asthma -on iv solumedrol antibiotics TRINY not on CPAP Neuropathy / Essential tremor Mood disorder Mild aortic stenosis and aortic insufficiency. pulmonary hypertension -complicating care. code: dnr/dni Disposition 2-3 days for medical clearance with rapid tapering of steroids Patient is unable to be cared for at home and will most likely need placement. VS, I&O, 24H, Fishbone Vital Signs/I&O Vital Signs Date Time Temp Pulse Resp B/P (MAP) Pulse Ox O2 Delivery O2 Flow Rate FiO2 03/27/20 09:23 92 Nasal Cannula 1.0 03/27/20 08:16 104/58 03/27/20 06:05 20 03/27/20 06:00 97.6 85 I&O- Last 24 Hours up to 6 AM 03/27/20 06:00 Intake Total 460 ml Output Total 700 ml Balance -240 ml Laboratory Data 24H LABS Laboratory Tests 2 03/26/20 11:30: Lab Scanned Report Miscellaneous Lab 03/26/20 12:08: Bedside Glucose (Misc Panel) 129H 03/26/20 17:09: Bedside Glucose (Misc Panel) 112H 03/26/20 20:20: Bedside Glucose (Misc Panel) 142H 03/27/20 06:26: Bedside Glucose (Misc Panel) 72L 03/27/20 06:27: Prothrombin Time 16.0H, Prothromb Time International Ratio 1.25 Microbiology Microbiology 03/25/20 Blood Culture - Preliminary, Resulted No growth after 24 hours . All specim... 03/25/20 Respiratory Virus Panel (PCR) (MELISSA) - Final, Complete ARACELI CHEN MD Mar 27, 2020 09:45
[2020-03-27] MEDS: METOPROLOL SUCC *XL* 25MG TAB (TopROL *XL*) PO SCH (21:07)
[2020-03-27 22:00] VITALS: BP 112/68
[2020-03-27] MEDS: LevoFLOXacin IV 500 MG in IV 1 EA IV SCH (22:45)
[2020-03-28] MEDS: IPRATROPIUM 0.5MG/ALBUTEROL 2.5MG INH SOL UD 3ML (DUONEB) NEB SCH ×4 (02:32→20:40)
[2020-03-28] MEDS: oxyCODONE 5MG TAB PO PRN ×4 (04:18→17:29)
[2020-03-28] MEDS: methylPREDNISolone 40MG 1ML VIAL IV SCH (05:55)
[2020-03-28 06:00] VITALS: BP 104/62
[2020-03-28 06:36] LABS: INR 1.2; PROTHROMBIN TIME 15.5 SECONDS (12.5-14.3)
[2020-03-28] MEDS: HumaLOG INSULIN (NovoLOG) PER UNIT SC SCH ×4 (06:53→21:00)
[2020-03-28] MEDS: GABAPENTIN 100 MG CAP PO SCH ×2 (09:03→21:33)
[2020-03-28] MEDS: FUROSEMIDE 40 MG TAB PO SCH (09:04)
[2020-03-28] MEDS: guaiFENesin ER 600 MG TAB PO SCH ×2 (09:04→21:33)
[2020-03-28] MEDS: PANTOPRAZOLE 40MG TAB (PROTONIX) PO SCH (09:04)
[2020-03-28] MEDS: VENLAFAXINE **XR** 75MG CAPSULE PO SCH (09:04)
[2020-03-28] MEDS: ATORVASTATIN 20 MG TAB PO SCH (09:04)
[2020-03-28] MEDS: ASPIRIN 81 MG ENTERIC TAB PO SCH (09:04)
[2020-03-28] MEDS: ENOXAPARIN 40MG/0.4ML SYRINGE (J1650 PER 10MG) SC SCH (09:05)
[2020-03-28] MEDS: MAGNESIUM OXIDE 400MG TAB (MAG-OX) PO SCH (09:05)
[2020-03-28] MEDS: lisinopriL 5 MG TAB PO SCH (09:12)
[2020-03-28 09:16] LABS: BASO % 0.1 % (0.0-1.0); EOS % 9.1 % (0.0-3.0); HEMATOCRIT 36.8 % (36.0-47.0); LYMPH # 0.9 10^3/uL (1.5-5.0); LYMPH % 3.9 % (24.0-44.0); MEAN CORPUSCULAR HEMOGLOBIN 26.3 pg (27.0-33.0); MEAN CORPUSCULAR HGB CONC 29.9 g/dl (32.0-36.5); MONO # 1.8 10^3/uL (0.0-0.8); MONO % 8.3 % (0.0-5.0); NEUTROPHILS # 16.9 10^3/uL (1.5-8.5); NEUTROPHILS % 77.5 % (36.0-66.0); PLATELET COUNT, AUTOMATED 305 10^3/uL (150-450); RED BLOOD COUNT 4.18 10^6/uL (4.00-5.40)
[2020-03-28 09:40] LABS: WHITE BLOOD COUNT 21.8 10^3/uL (4.0-10.0)
[2020-03-28 09:42] LABS: BLOOD UREA NITROGEN 28 MG/DL (7-18); CALCIUM LEVEL 9.6 MG/DL (8.8-10.2); CARBON DIOXIDE LEVEL 34 MEQ/L (21-32); CHLORIDE LEVEL 100 MEQ/L (98-107); CREATININE FOR GFR 0.56 MG/DL (0.55-1.30); GLOMERULAR FILTRATION RATE > 60.0 (>39); GLUCOSE, FASTING 85 MG/DL (70-100); SODIUM LEVEL 142 MEQ/L (136-145)
[2020-03-28] MEDS: LevoFLOXacin 500 MG TABLET PO SCH (12:56)
--- NOTE | 2020-03-28 13:20 | IPNPDOC ---
Date Seen The patient was seen on 03/28/20. Progress Note SUBJECTIVE: c/o weakness unable to get up w/o assistance. less sob and kaplan. no cp, pressure. cough less productive no fever or chills. OBJECTIVE PHYSICAL EXAMINATION: VITAL SIGNS: Please see below. GENERAL: Cachecticspeaks in full sentences HEENT: Dry mucous membranes, no JVD or thyromegaly CARDIOVASCULAR: S1, S2, regular rate and rhythm RESPIRATORY: Diminished bilateral, fine crackles at bases. no wheezing ABDOMINAL: Positive bowel sounds, soft, nontender, nondistended EXTREMITIES: No cyanosis or clubbing. No pitting edema LABORATORY DATA, IMAGING STUDIES, MICROBIOLOGY: Please see below. 03/25/20CT CHEST COMPARISON: CT ANGIO CHEST 02/27/2020 7:22 PM FINDINGS: Pulmonary arteries: The main pulmonary artery measures 36 mm. No pulmonary embolism is identified. Aorta: The ascending thoracic aorta measures 33 mm. Lungs: Near complete atelectasis of the right lower lobe and complete atelectasis of the right middle lobe with bronchiectasis and central bronchial narrowing or occlusion of the right middle lobe bronchi. There is some bronchial plugging of the atelectatic right lower lobe as well. Coarse interstitium with scattered areas of ground-glass infiltrate and focal consolidation in the remaining lungs. Pleural spaces: Mild loculated right pleural effusion with pleural rind. Heart: Unremarkable. No cardiomegaly. No pericardial effusion. Lymph nodes: Unremarkable. No enlarged lymph nodes. Kidneys and ureters: Incomplete visualization of a right renal cyst measuring at least 13 mm. Bones/joints: Unremarkable. No acute fracture. Soft tissues: Unremarkable. IMPRESSION: 1. Mild loculated right pleural effusion with resolution of the pneumothorax component since 02/27/2020. 2. Complete atelectasis of the right middle lobe with bronchiectasis and central bronchial stenosis or occlusion. There is near complete atelectasis of the right lower lobe with some right lower lobe bronchial plugging and is similar to the prior study. 3. Coarse pulmonary interstitium with scattered areas of ground-glass infiltrate and consolidation which is slightly increased overall since the prior study. 4. Mildly prominent main pulmonary artery measuring 35 mm which may be seen with pulmonary hypertension. 5. No interval pulmonary embolism is identified. COMMENTS: Consistent with the [employer]'s Incidental Findings Committee white paper (J Am Lu Radiol 2018): Any incidental renal lesion less than 1 cm or classified as too small to characterize, or any incidental cystic renal lesion characterized as simple-appearing, is likely benign. No follow-up imaging is recommended for these lesions per consensus recommendations based on imaging criteria. 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 Bronchiectasis, possible postobstructive pneumonia in the setting of stage IV lung cancer. Bronchiectasis / Mucus plugging -atelectasis of the right middle lobe, rightlower lobe bronchialplutting -central bronchial stenosis or occlusion. -Patient is doing much better with aggressive pulmonary toilet with acapella, chest physiotherapy -back to baseline Acute Hypoxic respiratory failure -on supplemental oxygen to keep o2 sat 90-92% -due to stage 4 lung ca, bronchiectasis, pulm HTN, pleural effusion possible postobstructive pneumonia -nebs, pulmonary toilet, abx. Possible postobstructive pneumonia -scattered ground glass infiltrate and consolidation -On IV antibiotics, afebrile, no chills overnight Mild loculated right pleural effusion - resolution of the pneumothorax component since 02/27/2020. -Right sided persistent loculated pleural effusion with pigtail placement in jan 2020. 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 Elliott CASTRO has been consulted and recommended hospice referral -Patient family services has been consulted for hospice referral Dysphagia -speech eval on 03/26/2020: Okay to have thin liquids and pure diet Severe Protein calorie malnutrition/ cancer and pulmonary cachexia - > 10 kg weight loss in 2 months -regular diet paroxysmal A. fib -on asa -rate controlled HTN -on metoproool DLP -atorvastatin NIDDM2 -regular diet due to protein calorie malnutrition COPD / Childhood asthma -no wheezing now -s/p iv solumedrol -rapid po prednisone taper antibiotics TRINY not on CPAP Neuropathy / Essential tremor Mood disorder Mild aortic stenosis and aortic insufficiency. pulmonary hypertension -complicating care. code: dnr/dni Disposition needs placement. if not appropriate for ARU, will need subacute snf . 2-3 days for medical clearance VS, I&O, 24H, Fishbone Vital Signs/I&O Vital Signs Date Time Temp Pulse Resp B/P (MAP) Pulse Ox O2 Delivery O2 Flow Rate FiO2 03/28/20 09:34 18 03/28/20 09:12 104/62 03/28/20 09:00 2.0 03/28/20 06:00 97.8 94 95 Nasal Cannula I&O- Last 24 Hours up to 6 AM 03/28/20 06:00 Intake Total 630 ml Output Total 650 ml Balance -20 ml Laboratory Data 24H LABS Laboratory Tests 2 03/27/20 16:41: Bedside Glucose (Misc Panel) 89 03/27/20 20:01: Bedside Glucose (Misc Panel) 149H 03/28/20 06:11: Immature Granulocyte % (Auto) 1.1, Neutrophils (%) (Auto) 77.5H, Lymphocytes (%) (Auto) 3.9L, Monocytes (%) (Auto) 8.3H, Eosinophils (%) (Auto) 9.1H, Basophils (%) (Auto) 0.1, Neutrophils # (Auto) 16.9H, Lymphocytes # (Auto) 0.9L, Monocytes # (Auto) 1.8H, Eosinophils # (Auto) 2.0H, Basophils # (Auto) 0.0, Nucleated Red Blood Cells % (auto) 0.0, Prothrombin Time 15.5H, Prothromb Time International Ratio 1.20, Anion Gap 8, Glomerular Filtration Rate > 60.0, Calcium Level 9.6 03/28/20 06:25: Bedside Glucose (Misc Panel) 82L 03/28/20 11:24: Bedside Glucose (Misc Panel) 185H CBC/BMP Laboratory Tests 03/28/20 06:11 Microbiology Microbiology 03/25/20 Blood Culture - Preliminary, Resulted No Growth after 48 hours. All Specime... 03/25/20 Respiratory Virus Panel (PCR) (MELISSA) - Final, Complete ARACELI CHEN MD Mar 28, 2020 12:42
[2020-03-28 14:00] VITALS: BP 114/64
[2020-03-28] MEDS: METOPROLOL SUCC *XL* 25MG TAB (TopROL *XL*) PO SCH (21:00)
[2020-03-28 21:30] VITALS: BP 82/60
[2020-03-28] MEDS ORDERED: SODIUM CHLORIDE NASAL 0.65% SPRAY BTL (OCEAN) PRN (21:45)
[2020-03-28] MEDS ORDERED: NS 500 ML IV ONE ×2 (21:45→22:45)
[2020-03-28 22:30] VITALS: BP 88/42
[2020-03-28 23:39] VITALS: BP 90/52
[2020-03-29] MEDS: IPRATROPIUM 0.5MG/ALBUTEROL 2.5MG INH SOL UD 3ML (DUONEB) NEB SCH ×4 (01:01→20:17)
[2020-03-29] MEDS: LevoFLOXacin 500 MG TABLET PO SCH (05:27)
[2020-03-29 06:00] VITALS: BP 110/49
[2020-03-29 06:26] LABS: INR 1.17; PROTHROMBIN TIME 15.2 SECONDS (12.5-14.3)
[2020-03-29] MEDS: HumaLOG INSULIN (NovoLOG) PER UNIT SC SCH ×4 (08:31→20:56)
[2020-03-29] MEDS: MAGNESIUM OXIDE 400MG TAB (MAG-OX) PO SCH (08:32)
[2020-03-29] MEDS: VENLAFAXINE **XR** 75MG CAPSULE PO SCH (08:32)
[2020-03-29] MEDS: ATORVASTATIN 20 MG TAB PO SCH (08:32)
[2020-03-29] MEDS: PANTOPRAZOLE 40MG TAB (PROTONIX) PO SCH (08:32)
[2020-03-29] MEDS: guaiFENesin ER 600 MG TAB PO SCH ×2 (08:32→21:03)
[2020-03-29] MEDS: predniSONE 20 MG TAB PO SCH (08:32)
[2020-03-29] MEDS: ASPIRIN 81 MG ENTERIC TAB PO SCH (08:32)
[2020-03-29] MEDS: GABAPENTIN 100 MG CAP PO SCH ×2 (08:32→21:03)
[2020-03-29] MEDS: ENOXAPARIN 40MG/0.4ML SYRINGE (J1650 PER 10MG) SC SCH (08:32)
[2020-03-29] MEDS: oxyCODONE 5MG TAB PO PRN ×3 (08:33→21:04)
[2020-03-29 08:57] LABS: BLOOD UREA NITROGEN 33 MG/DL (7-18); C REACTIVE PROTEIN QUANTITATIV 2.25 MG/DL (0.00-0.30); CALCIUM LEVEL 9.4 MG/DL (8.8-10.2); CARBON DIOXIDE LEVEL 33 MEQ/L (21-32); CHLORIDE LEVEL 103 MEQ/L (98-107); CREATININE FOR GFR 0.71 MG/DL (0.55-1.30); GLOMERULAR FILTRATION RATE > 60.0 (>39); GLUCOSE, FASTING 94 MG/DL (70-100); POTASSIUM SERUM 3.8 MEQ/L (3.5-5.1); SODIUM LEVEL 142 MEQ/L (136-145)
[2020-03-29 09:05] LABS: BASO # 0.1 10^3/uL (0.0-0.2); BASO % 0.2 % (0.0-1.0); EOS # 2.6 10^3/uL (0.0-0.5); EOS % 10.9 % (0.0-3.0); HEMATOCRIT 37.5 % (36.0-47.0); HEMOGLOBIN 11.2 g/dl (12.0-15.5); MEAN CORPUSCULAR HEMOGLOBIN 26.5 pg (27.0-33.0); MEAN CORPUSCULAR HGB CONC 29.9 g/dl (32.0-36.5); MEAN CORPUSCULAR VOLUME 88.7 fl (80.0-96.0); MONO # 1.4 10^3/uL (0.0-0.8); NEUTROPHILS # 18.6 10^3/uL (1.5-8.5); NEUTROPHILS % 77.9 % (36.0-66.0); PLATELET COUNT, AUTOMATED 288 10^3/uL (150-450); RED BLOOD COUNT 4.23 10^6/uL (4.00-5.40)
[2020-03-29 09:08] LABS: WHITE BLOOD COUNT 23.9 10^3/uL (4.0-10.0)
[2020-03-29 09:26] LABS: ERYTHROCYTE SEDIMENTATION RATE 69 mm/hr (0-30)
--- NOTE | 2020-03-29 11:39 | IPNPDOC ---
Date Seen The patient was seen on 03/29/20. Progress Note SUBJECTIVE: c/o nasal congestion no fever chills cough improved unable to get up on her own, needing 1person assistance. OBJECTIVE PHYSICAL EXAMINATION: VITAL SIGNS: Please see below. GENERAL: Cachectic bitemporal wasting. No conversational dyspnea HEENT: Moist mucous membranes, no JVD or thyromegaly CARDIOVASCULAR: S1, S2, regular rate and rhythm RESPIRATORY: Diminished bilateral, fine crackles at bases. no wheezing ABDOMINAL: Positive bowel sounds, soft, nontender, nondistended EXTREMITIES: No cyanosis or clubbing. No pitting edema LABORATORY DATA, IMAGING STUDIES, MICROBIOLOGY: Please see below. 03/25/20CT CHEST COMPARISON: CT ANGIO CHEST 02/27/2020 7:22 PM FINDINGS: Pulmonary arteries: The main pulmonary artery measures 36 mm. No pulmonary embolism is identified. Aorta: The ascending thoracic aorta measures 33 mm. Lungs: Near complete atelectasis of the right lower lobe and complete atelectasis of the right middle lobe with bronchiectasis and central bronchial narrowing or occlusion of the right middle lobe bronchi. There is some bronchial plugging of the atelectatic right lower lobe as well. Coarse interstitium with scattered areas of ground-glass infiltrate and focal consolidation in the remaining lungs. Pleural spaces: Mild loculated right pleural effusion with pleural rind. Heart: Unremarkable. No cardiomegaly. No pericardial effusion. Lymph nodes: Unremarkable. No enlarged lymph nodes. Kidneys and ureters: Incomplete visualization of a right renal cyst measuring at least 13 mm. Bones/joints: Unremarkable. No acute fracture. Soft tissues: Unremarkable. IMPRESSION: 1. Mild loculated right pleural effusion with resolution of the pneumothorax component since 02/27/2020. 2. Complete atelectasis of the right middle lobe with bronchiectasis and central bronchial stenosis or occlusion. There is near complete atelectasis of the right lower lobe with some right lower lobe bronchial plugging and is similar to the prior study. 3. Coarse pulmonary interstitium with scattered areas of ground-glass infiltrate and consolidation which is slightly increased overall since the prior study. 4. Mildly prominent main pulmonary artery measuring 35 mm which may be seen with pulmonary hypertension. 5. No interval pulmonary embolism is identified. COMMENTS: Consistent with the [employer]'s Incidental Findings Committee white paper (J Am Lu Radiol 2018): Any incidental renal lesion less than 1 cm or classified as too small to characterize, or any incidental cystic renal lesion characterized as simple-appearing, is likely benign. No follow-up imaging is recommended for these lesions per consensus recommendations based on imaging criteria. 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 Bronchiectasis, possible postobstructive pneumonia in the setting of stage IV lung cancer. Bronchiectasis / Mucus plugging -atelectasis of the right middle lobe, rightlower lobe bronchialplutting -central bronchial stenosis or occlusion. -Resolved with aggressive pulmonary toilet Acute on chronic Hypoxic respiratory failure -on supplemental oxygen to keep o2 sat 90-92% -due to stage 4 lung ca, bronchiectasis, pulm HTN, pleural effusion possible postobstructive pneumonia -nebs, pulmonary toilet, abx. -Back to baseline postobstructive pneumonia -scattered ground glass infiltrate and consolidation -Complete 7 days of by mouth Levaquin -Pro calcitonin, improved Mild loculated right pleural effusion - resolution of the pneumothorax component since 02/27/2020. -Right sided persistent loculated pleural effusion with pigtail placement in jan 2020. 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 Elliott CASTRO has been consulted and recommended hospice referral -Patient family services has been consulted for hospice referral -Changed to ALCstatus -Discharged to hospice house Dysphagia -speech eval on 03/26/2020: Okay to have thin liquids and pured diet Severe Protein calorie malnutrition/ cancer and pulmonary cachexia - > 10 kg weight loss in 2 months -regular diet -ensure 3 times a day with meals paroxysmal A. fib -on asa -rate controlled HTN -on metoproool DLP -atorvastatin NIDDM2 -regular diet due to protein calorie malnutrition COPD / Childhood asthma -no wheezing now -s/p iv solumedrol -rapid po prednisone taper -antibiotics Nasal congestion -Flonase TRINY not on CPAP Neuropathy / Essential tremor Mood disorder Mild aortic stenosis and aortic insufficiency. pulmonary hypertension -complicating care. code: [id number] Disposition Changed ill C status. Awaiting hospice house placement VS, I&O, 24H, Fishbone Vital Signs/I&O Vital Signs Date Time Temp Pulse Resp B/P (MAP) Pulse Ox O2 Delivery O2 Flow Rate FiO2 03/29/20 08:33 107 20 88 Nasal Cannula 2.0 03/29/20 06:00 97.8 110/49 (69) I&O- Last 24 Hours up to 6 AM 03/29/20 06:00 Intake Total 1980 ml Output Total 350 ml Balance 1630 ml Laboratory Data 24H LABS Laboratory Tests 2 03/28/20 16:27: Bedside Glucose (Misc Panel) 90 03/28/20 20:57: Bedside Glucose (Misc Panel) 105 03/29/20 05:33: Anion Gap 6L, Glomerular Filtration Rate > 60.0, Calcium Level 9.4, C-Reactive Protein, Quantitative 2.25H 03/29/20 05:38: Prothrombin Time 15.2H, Prothromb Time International Ratio 1.17 03/29/20 06:39: Bedside Glucose (Misc Panel) 104 03/29/20 08:38: Immature Granulocyte % (Auto) 1.0, Neutrophils (%) (Auto) 77.9H, Lymphocytes (%) (Auto) 4.0L, Monocytes (%) (Auto) 6.0H, Eosinophils (%) (Auto) 10.9H, Basophils (%) (Auto) 0.2, Neutrophils # (Auto) 18.6H, Lymphocytes # (Auto) 1.0L, Monocytes # (Auto) 1.4H, Eosinophils # (Auto) 2.6H, Basophils # (Auto) 0.1, Nucleated Red Blood Cells % (auto) 0.0, Erythrocyte Sedimentation Rate 69H, Procalcitonin 0.12 CBC/BMP Laboratory Tests 03/29/20 05:33 03/29/20 08:38 Microbiology Microbiology 03/25/20 Blood Culture - Preliminary, Resulted No Growth after 72 hours. All specime... 03/25/20 Respiratory Virus Panel (PCR) (MELISSA) - Final, Complete APRIL,ARACELI C. MD Mar 29, 2020 11:39
[2020-03-29] MEDS ORDERED: MOM 30ML SUSPENSION UDC PO PRN (11:45)
[2020-03-29] MEDS: FLUTICASONE PROP 0.05% NASAL SPRAY 16 GM (FLONASE) NARES SCH (11:50)
[2020-03-29 14:00] VITALS: BP 107/69
[2020-03-29] MEDS: METOPROLOL SUCC *XL* 25MG TAB (TopROL *XL*) PO SCH (21:03)
[2020-03-29 22:00] VITALS: BP 107/69
[2020-03-29 23:47] VITALS: O2SAT 97
[2020-03-30] MEDS: IPRATROPIUM 0.5MG/ALBUTEROL 2.5MG INH SOL UD 3ML (DUONEB) NEB SCH ×4 (01:08→20:40)
[2020-03-30] MEDS: oxyCODONE 5MG TAB PO PRN ×3 (02:30→18:50)
[2020-03-30] MEDS: ACETAMINOPHEN TAB 650MG DOSE (2X325MG) PO PRN ×2 (05:49→20:39)
[2020-03-30] MEDS: LevoFLOXacin 500 MG TABLET PO SCH (05:49)
[2020-03-30 06:00] VITALS: BP 114/64
[2020-03-30 06:41] LABS: INR 1.14; PROTHROMBIN TIME 14.9 SECONDS (12.5-14.3)
[2020-03-30] MEDS: ENOXAPARIN 40MG/0.4ML SYRINGE (J1650 PER 10MG) SC SCH (08:48)
[2020-03-30] MEDS: ASPIRIN 81 MG ENTERIC TAB PO SCH (08:48)
[2020-03-30] MEDS: GABAPENTIN 100 MG CAP PO SCH ×2 (08:48→20:37)
[2020-03-30] MEDS: HumaLOG INSULIN (NovoLOG) PER UNIT SC SCH ×4 (08:48→21:00)
[2020-03-30] MEDS: guaiFENesin ER 600 MG TAB PO SCH ×2 (08:48→20:37)
[2020-03-30] MEDS: ATORVASTATIN 20 MG TAB PO SCH (08:48)
[2020-03-30] MEDS: PANTOPRAZOLE 40MG TAB (PROTONIX) PO SCH (08:49)
[2020-03-30] MEDS: VENLAFAXINE **XR** 75MG CAPSULE PO SCH (08:49)
[2020-03-30] MEDS: FLUTICASONE PROP 0.05% NASAL SPRAY 16 GM (FLONASE) NARES SCH (08:49)
[2020-03-30] MEDS: MAGNESIUM OXIDE 400MG TAB (MAG-OX) PO SCH (08:49)
[2020-03-30] MEDS: predniSONE 20 MG TAB PO SCH (08:49)
[2020-03-30] MEDS: METOPROLOL SUCC *XL* 25MG TAB (TopROL *XL*) PO SCH (20:39)
[2020-03-31 00:29] VITALS: O2SAT 95
[2020-03-31] MEDS: IPRATROPIUM 0.5MG/ALBUTEROL 2.5MG INH SOL UD 3ML (DUONEB) NEB SCH ×4 (00:54→18:21)
[2020-03-31 06:00] VITALS: BP 108/57
[2020-03-31] MEDS: LevoFLOXacin 500 MG TABLET PO SCH (06:11)
[2020-03-31] MEDS: oxyCODONE 5MG TAB PO PRN ×4 (06:38→22:00)
[2020-03-31 07:03] LABS: INR 1.08; PROTHROMBIN TIME 14.2 SECONDS (12.5-14.3)
[2020-03-31] MEDS: HumaLOG INSULIN (NovoLOG) PER UNIT SC SCH ×4 (07:30→21:00)
[2020-03-31] MEDS: ACETAMINOPHEN TAB 650MG DOSE (2X325MG) PO PRN (09:58)
[2020-03-31] MEDS: MAGNESIUM OXIDE 400MG TAB (MAG-OX) PO SCH (09:58)
[2020-03-31] MEDS: ENOXAPARIN 40MG/0.4ML SYRINGE (J1650 PER 10MG) SC SCH (09:58)
[2020-03-31] MEDS: predniSONE 20 MG TAB PO SCH (09:58)
[2020-03-31] MEDS: ATORVASTATIN 20 MG TAB PO SCH (09:58)
[2020-03-31] MEDS: PANTOPRAZOLE 40MG TAB (PROTONIX) PO SCH (09:58)
[2020-03-31] MEDS: ASPIRIN 81 MG ENTERIC TAB PO SCH (09:58)
[2020-03-31] MEDS: VENLAFAXINE **XR** 75MG CAPSULE PO SCH (09:58)
[2020-03-31] MEDS: FLUTICASONE PROP 0.05% NASAL SPRAY 16 GM (FLONASE) NARES SCH (09:59)
[2020-03-31] MEDS: guaiFENesin ER 600 MG TAB PO SCH ×2 (09:59→22:02)
[2020-03-31] MEDS: GABAPENTIN 100 MG CAP PO SCH ×2 (09:59→21:59)
[2020-03-31] MEDS: METOPROLOL SUCC *XL* 25MG TAB (TopROL *XL*) PO SCH (21:59)
[2020-04-01 02:11] VITALS: O2SAT 98
[2020-04-01] MEDS: IPRATROPIUM 0.5MG/ALBUTEROL 2.5MG INH SOL UD 3ML (DUONEB) NEB SCH ×4 (02:50→20:58)
[2020-04-01] MEDS: oxyCODONE 5MG TAB PO PRN ×2 (03:29→08:27)
[2020-04-01] MEDS: LevoFLOXacin 500 MG TABLET PO SCH (05:42)
[2020-04-01] MEDS: ACETAMINOPHEN TAB 650MG DOSE (2X325MG) PO PRN ×2 (05:42→09:54)
[2020-04-01 06:00] VITALS: BP 106/59
[2020-04-01 06:56] LABS: INR 1.09; PROTHROMBIN TIME 14.3 SECONDS (12.5-14.3)
[2020-04-01] MEDS: HumaLOG INSULIN (NovoLOG) PER UNIT SC SCH ×4 (07:30→20:51)
[2020-04-01] MEDS: PANTOPRAZOLE 40MG TAB (PROTONIX) PO SCH (08:26)
[2020-04-01] MEDS: ATORVASTATIN 20 MG TAB PO SCH (08:26)
[2020-04-01] MEDS: ASPIRIN 81 MG ENTERIC TAB PO SCH (08:26)
[2020-04-01] MEDS: VENLAFAXINE **XR** 75MG CAPSULE PO SCH (08:26)
[2020-04-01] MEDS: predniSONE 20 MG TAB PO SCH (08:26)
[2020-04-01] MEDS: MAGNESIUM OXIDE 400MG TAB (MAG-OX) PO SCH (08:26)
[2020-04-01] MEDS: GABAPENTIN 100 MG CAP PO SCH ×2 (08:26→21:05)
[2020-04-01] MEDS: guaiFENesin ER 600 MG TAB PO SCH ×2 (08:27→21:05)
[2020-04-01] MEDS: ENOXAPARIN 40MG/0.4ML SYRINGE (J1650 PER 10MG) SC SCH (08:27)
[2020-04-01] MEDS: FLUTICASONE PROP 0.05% NASAL SPRAY 16 GM (FLONASE) NARES SCH (10:32)
[2020-04-01 11:31] LABS: HEMATOCRIT 38.4 % (36.0-47.0); HEMOGLOBIN 11.6 g/dl (12.0-15.5); MEAN CORPUSCULAR HEMOGLOBIN 26.5 pg (27.0-33.0); MEAN CORPUSCULAR HGB CONC 30.2 g/dl (32.0-36.5); MEAN CORPUSCULAR VOLUME 87.9 fl (80.0-96.0); PLATELET COUNT, AUTOMATED 268 10^3/uL (150-450); RED BLOOD COUNT 4.37 10^6/uL (4.00-5.40); WHITE BLOOD COUNT 27.7 10^3/uL (4.0-10.0)
[2020-04-01 12:16] LABS: BLOOD UREA NITROGEN 26 MG/DL (7-18); CALCIUM LEVEL 9.6 MG/DL (8.8-10.2); CARBON DIOXIDE LEVEL 32 MEQ/L (21-32); CHLORIDE LEVEL 104 MEQ/L (98-107); CREATININE FOR GFR 0.47 MG/DL (0.55-1.30); GLOMERULAR FILTRATION RATE > 60.0 (>39); GLUCOSE, FASTING 139 MG/DL (70-100); POTASSIUM SERUM 4.2 MEQ/L (3.5-5.1); SODIUM LEVEL 142 MEQ/L (136-145)
[2020-04-01 13:15] VITALS: BP 105/58
[2020-04-01] MEDS: oxyCODONE 5MG TAB PO SCH ×3 (13:24→21:05)
[2020-04-01] MEDS: METOPROLOL SUCC *XL* 25MG TAB (TopROL *XL*) PO SCH (21:06)
[2020-04-02] MEDS: oxyCODONE 5MG TAB PO SCH ×6 (00:35→21:11)
[2020-04-02] MEDS: IPRATROPIUM 0.5MG/ALBUTEROL 2.5MG INH SOL UD 3ML (DUONEB) NEB SCH ×4 (01:34→19:56)
[2020-04-02 06:00] VITALS: BP 108/56
[2020-04-02] MEDS: ACETAMINOPHEN TAB 650MG DOSE (2X325MG) PO PRN (06:04)
[2020-04-02] MEDS: ENOXAPARIN 40MG/0.4ML SYRINGE (J1650 PER 10MG) SC SCH (08:21)
[2020-04-02] MEDS: HumaLOG INSULIN (NovoLOG) PER UNIT SC SCH ×4 (08:21→21:00)
[2020-04-02] MEDS: VENLAFAXINE **XR** 75MG CAPSULE PO SCH (08:22)
[2020-04-02] MEDS: PANTOPRAZOLE 40MG TAB (PROTONIX) PO SCH (08:22)
[2020-04-02] MEDS: ATORVASTATIN 20 MG TAB PO SCH (08:22)
[2020-04-02] MEDS: ASPIRIN 81 MG ENTERIC TAB PO SCH (08:22)
[2020-04-02] MEDS: FLUTICASONE PROP 0.05% NASAL SPRAY 16 GM (FLONASE) NARES SCH (08:23)
[2020-04-02] MEDS: predniSONE 20 MG TAB PO SCH (08:23)
[2020-04-02] MEDS: GABAPENTIN 100 MG CAP PO SCH ×2 (08:23→21:11)
[2020-04-02] MEDS: guaiFENesin ER 600 MG TAB PO SCH ×2 (08:23→21:11)
[2020-04-02] MEDS: MAGNESIUM OXIDE 400MG TAB (MAG-OX) PO SCH (08:23)
[2020-04-02] MEDS ORDERED: OXYC-517 PO (20:51)
[2020-04-02] MEDS ORDERED: ACET1TAB55 PO (20:51)
[2020-04-02 21:12] VITALS: BP 101/57
[2020-04-02] MEDS: METOPROLOL SUCC *XL* 25MG TAB (TopROL *XL*) PO SCH (21:12)
[2020-04-03] MEDS: IPRATROPIUM 0.5MG/ALBUTEROL 2.5MG INH SOL UD 3ML (DUONEB) NEB SCH ×3 (00:01→13:45)
[2020-04-03] MEDS: oxyCODONE 5MG TAB PO SCH ×4 (01:07→11:37)
[2020-04-03 06:00] VITALS: BP 127/54
[2020-04-03] MEDS: HumaLOG INSULIN (NovoLOG) PER UNIT SC SCH ×2 (07:30→11:37)
[2020-04-03] MEDS: PANTOPRAZOLE 40MG TAB (PROTONIX) PO SCH (07:53)
[2020-04-03] MEDS: ENOXAPARIN 40MG/0.4ML SYRINGE (J1650 PER 10MG) SC SCH (07:53)
[2020-04-03] MEDS: ASPIRIN 81 MG ENTERIC TAB PO SCH (07:53)
[2020-04-03] MEDS: ATORVASTATIN 20 MG TAB PO SCH (07:54)
[2020-04-03] MEDS: guaiFENesin ER 600 MG TAB PO SCH (07:54)
[2020-04-03] MEDS: GABAPENTIN 100 MG CAP PO SCH (07:54)
[2020-04-03] MEDS: MAGNESIUM OXIDE 400MG TAB (MAG-OX) PO SCH (07:54)
[2020-04-03] MEDS: VENLAFAXINE **XR** 75MG CAPSULE PO SCH (07:54)
[2020-04-03] MEDS: predniSONE 20 MG TAB PO SCH (07:55)
[2020-04-03] MEDS: FLUTICASONE PROP 0.05% NASAL SPRAY 16 GM (FLONASE) NARES SCH (07:56)
[2020-04-03] MEDS ORDERED: MUCI600T31 PO (11:24)
[2020-04-03] MEDS ORDERED: HYOS125TA PO (12:19)
[2020-04-03] MEDS ORDERED: MORP20SO3 PO (12:19)
[2020-04-03] MEDS ORDERED: ATIV1TAB10 PO (12:19)
--- NOTE | 2020-04-03 12:53 | DS.PDOC ---
Discharge Summary General Date of Admission Mar 25, 2020 at 19:35 Date of Discharge 04/03/20 Attending Physician: Sarah Simmons MD Discharge Summary HISTORY OF PRESENT ILLNESS: Ms. Gómez is a 69-year-old female with a history of COPD & stage IV adenocarcinoma of the lung with chronic bronchial obstruction, postobstructive atelectasis and a chronic loculated pleural effusion. She was admitted to [facility] on January 26, February 26, and March 11 with complaints of shortness of breath. which was attributed to the lung cancer with associated bronchial obstruction, postobstructive atelectasis and effusion. During her admission in January Dr. Samuel placed a chest tube, during the more recent admissions, it was felt that her shortness of breath may be partially due to radiation and/or Keytruda. On day of admission, she presented with complaints of 3-4 week in duration, shortness of breath that is made worse with movement. She feels frustrated because her shortness of breath makes it difficult for her to talk to her and stated that she came to the hospital today because her breathing "stopped". She also reported having chest pressure and a runny nose. She denied having fevers, chills, or lower extremity swelling. Per ER intake notes her called EMS because she was lightheaded; when EMS evaluated her her O2 sats were only 88% on 4 L. HOSPITAL COURSE: During hospitalization patient's bronchiectasis / Mucus plugging, atelectasis of the right middle lobe, right lower lobe improved with aggressive pulmonary toile ting. Acute on chronic Hypoxic respiratory failure somewhat improved; however, she remains on 2 L NC. She was treated for postobstructive pneumonia and completed 7 days of by mouth Levaquin. We saw improvement of a mild loculated right pleural effusion, no indication for thoracentesis or chest tube placement at this time. Heme/onc was consulted for Stage 4 poorly differentiated adenocarcinoma of the right lung at the hilum, occluding the right lower lobe bronchus and bronchus intermedius, involving the subcarinal nodes and pleura, which shows an 80% PD-L1 positivity. She had previously received RT and Keytruda. Medical oncologist, Dr. Porter has been consulted and recommended hospice referral. Today she will be [facility] to [facility] to follow up with their providers on arrival. At time of discharge, patient had no acute complaints. PAST MEDICAL/ SURGICAL HISTORY: Stage IV adenocarcinoma of the lung PDL 1 + / EGFR K-vinod BRAF and ROS 1 negative with right sided postobstructive atelectasis and chronic effusion Radiation esophagitis Long-standing persistent atrial fibrillation NIDDM with neuropathy COPD / childhood asthma RTINY not compliant with CPAP Essential tremor Depression History of Peripartum cardiomyopathy /Pulmonary HTN Bilateral cataract surgery Right knee arthroplasty Left foot bunionectomy Left wrist fracture SOCIAL HISTORY: She used to to smoke 1-1/2-2 packs a day for 25 years and quit in 1989 She doesn't drink alcohol or use recreational drugs. 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 FAMILY HISTORY: Her father had lung cancer, dyslipidemia and an RI Her brother had emphysema and metastatic lung cancer Her mother had back problems ALLERGIES: Please see below. DISCHARGE MEDICATIONS: Please see below. PHYSICAL EXAMINATION: VITAL SIGNS: Please see below. GENERAL: Cachectic bitemporal wasting. No conversational dyspnea HEENT: Moist mucous membranes, no JVD or thyromegaly CARDIOVASCULAR: S1, S2, regular rate and rhythm RESPIRATORY: Diminished bilateral, fine crackles at bases. no wheezing ABDOMINAL: Positive bowel sounds, soft, nontender, nondistended EXTREMITIES: No cyanosis or clubbing. No pitting edema LABORATORY DATA, IMAGING STUDIES, MICROBIOLOGY: Please see below. 03/25/20CT CHEST COMPARISON: CT ANGIO CHEST 02/27/2020 7:22 PM FINDINGS: Pulmonary arteries: The main pulmonary artery measures 36 mm. No pulmonary embolism is identified. Aorta: The ascending thoracic aorta measures 33 mm. Lungs: Near complete atelectasis of the right lower lobe and complete atelectasis of the right middle lobe with bronchiectasis and central bronchial narrowing or occlusion of the right middle lobe bronchi. There is some bronchial plugging of the atelectatic right lower lobe as well. Coarse interstitium with scattered areas of ground-glass infiltrate and focal consolidation in the remaining lungs. Pleural spaces: Mild loculated right pleural effusion with pleural rind. Heart: Unremarkable. No cardiomegaly. No pericardial effusion. Lymph nodes: Unremarkable. No enlarged lymph nodes. Kidneys and ureters: Incomplete visualization of a right renal cyst measuring at least 13 mm. Bones/joints: Unremarkable. No acute fracture. Soft tissues: Unremarkable. IMPRESSION: 1. Mild loculated right pleural effusion with resolution of the pneumothorax component since 02/27/2020. 2. Complete atelectasis of the right middle lobe with bronchiectasis and central bronchial stenosis or occlusion. There is near complete atelectasis of the right lower lobe with some right lower lobe bronchial plugging and is similar to the prior study. 3. Coarse pulmonary interstitium with scattered areas of ground-glass infiltrate and consolidation which is slightly increased overall since the prior study. 4. Mildly prominent main pulmonary artery measuring 35 mm which may be seen with pulmonary hypertension. 5. No interval pulmonary embolism is identified. COMMENTS: Consistent with the [employer]'s Incidental Findings Committee white paper (J Am Lu Radiol 2018): Any incidental renal lesion less than 1 cm or classified as too small to characterize, or any incidental cystic renal lesion characterized as simple-appearing, is likely benign. No follow-up imaging is recommended for these lesions per consensus recommendations based on imaging criteria. Electronically signed by: Raymond Gomez On 03/25/2020 22:52:07 PM ASSESSMENT: 69 yo F with a hx of stage 4 adenocarcinoma of lung with bronchial obstruction, post obstructive atelectasis, loculated pleural effusion, chronic SOB, afib , Dm2, presented to [facility] ER with progressively worsening shortness of breath , admitted for mucus plugging. Bronchiectasis, possible postobstructive pneumonia in the setting of stage IV lung cancer. PLAN: Bronchiectasis / Mucus plugging -atelectasis of the right middle lobe, rightlower lobe bronchialplutting -central bronchial stenosis or occlusion. -Resolved with aggressive pulmonary toilet Acute on chronic Hypoxic respiratory failure -on supplemental oxygen to keep o2 sat 90-92%, Currently 2 L NC -due to stage 4 lung ca, bronchiectasis, pulm HTN, pleural effusion possible postobstructive pneumonia -nebs, pulmonary toilet -Back to baseline Postobstructive pneumonia -Scattered ground glass infiltrate and consolidation -Completed 7 days of by mouth Levaquin -Pro calcitonin, improved Mild loculated right pleural effusion -Resolution of the pneumothorax component since 02/27/2020. -Right sided persistent loculated pleural effusion with pigtail placement in jan 2020. 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 Porter has been consulted and recommended hospice referral -Discharged to hospice house Dysphagia -speech eval on 03/26/2020: Okay to have thin liquids and pured diet Severe Protein calorie malnutrition/ cancer and pulmonary cachexia - > 10 kg weight loss in 2 months -regular diet -ensure 3 times a day with meals paroxysmal A. fib -on asa -rate controlled HTN -on metoproool DLP -atorvastatin NIDDM2 -regular diet due to protein calorie malnutrition COPD / Childhood asthma -no wheezing now -s/p iv solumedrol -rapid po prednisone taper -antibiotics Nasal congestion -Flonase TRINY not on CPAP Neuropathy / Essential tremor Mood disorder Mild aortic stenosis and aortic insufficiency. pulmonary hypertension -complicating care. DISPOSITION: Discharged today to [facility]. TIME SPENT ON DISCHARGE: Greater than 30 minutes. Vital Signs/I&Os Vital Signs Date Time Temp Pulse Resp B/P (MAP) Pulse Ox O2 Delivery O2 Flow Rate FiO2 04/03/20 12:20 18 04/03/20 11:37 Nasal Cannula 2.0 04/03/20 06:00 97.9 54 127/54 (78) 98 I&O- Last 24 Hours up to 6 AM 04/03/20 06:00 Intake Total 1040 ml Output Total 0 ml Balance 1040 ml Laboratory Data Labs 24H Laboratory Tests 2 04/02/20 16:53: Bedside Glucose (Misc Panel) 138H 04/02/20 20:26: Bedside Glucose (Misc Panel) 91 04/03/20 05:57: Bedside Glucose (Misc Panel) 103 04/03/20 11:24: Bedside Glucose (Misc Panel) 159H FSBS Laboratory Tests Test 04/02/20 16:53 04/02/20 20:26 04/03/20 05:57 04/03/20 11:24 Range/Units Bedside Glucose (Misc Panel) 138 91 103 159 83-110 MG/DL Microbiology Microbiology 03/25/20 Blood Culture - Final, Complete NO GROWTH AFTER 5 DAYS 03/25/20 Respiratory Virus Panel (PCR) (MELISSA) - Final, Complete Discharge Medications Scheduled Aspirin (Aspirin EC) 81 Mg Tablet., 81 MG PO DAILY, (Reported) Atorvastatin Calcium (Atorvastatin Calcium) 40 Mg Tablet, 40 MG PO DAILY, (Reported) Budesonide/Formoterol (Symbicort 160-4.5 Mcg Inhaler) 6 Gm Hfa.aer.ad, 2 PUFF INH BID, (Reported) Calcium Carbonate/Vitamin D3 (Calcium 600+D Softgel) 1 Each Capsule, 1 CAP PO BID, (Reported) Dulaglutide (Trulicity) 0.75 Mg/0.5 Ml Pen.injctr, 0.75 MG SC QWEEK, (Reported) SUNDAYS Fluticasone/Vilanterol (Breo Ellipta 100-25 Mcg INH) 1 Each Blst.w.dev, 1 PUFF INH DAILY, (Reported) Furosemide (Furosemide) 40 Mg Tablet, 40 MG PO DAILY, (Reported) Gabapentin (Gabapentin) 100 Mg Capsule, 200 MG PO BID, (Reported) Glipizide (Glipizide ER) 5 Mg Tab.er.24, 5 MG PO DAILY, (Reported) Guaifenesin (Mucinex) 600 Mg Tab.er.12h, 1,200 MG PO BID Lisinopril (Lisinopril) 5 Mg Tablet, 5 MG PO DAILY, (Reported) Magnesium Oxide (Magnesium Oxide) 400 Mg Tablet, 400 MG PO DAILY, (Reported) Metformin HCl (Metformin HCl) 1,000 Mg Tab, 1,000 MG PO BID, (Reported) Metoprolol Succinate (Metoprolol Succinate) 25 Mg Tab.er.24h, 25 MG PO QHS, (Reported) Venlafaxine HCl (Venlafaxine HCl ER) 150 Mg Cap, 150 MG PO DAILY, (Reported) Scheduled PRN Acetaminophen (Acetaminophen) 325 Mg Tablet, 650 MG PO Q6HP PRN for PAIN OR FEVER Fluticasone Propionate (Fluticasone Propionate) 50 Mcg/Act Spr, 1 SPRAY NARES QHS PRN for CONGESTION, (Reported) Hyoscyamine Sulfate (Hyoscyamine Sulfate) 0.125 Mg Tab.subl, 0.125 MG PO Q4HP PRN for TERMINAL SECRETIONS Use sublingually if unable to swallow Ipratropium/Albuterol Sulfate (Combivent Respimat 20-100 Mcg) 4 Gm Mist.inhal, 2 PUFF INH QID PRN for SHORTNESS OF BREATH, (Reported) Lorazepam (Ativan) 0.5 Mg Tablet, 0.5 MG PO Q4HP PRN for ANXIETY/AGITATION Use sublingually if unable to swallow Magic Mouthwash (First-Mouthwash Blm) 1 Ea Susp, 10 ML SSP QID PRN for MUCOSITIS, (Reported) (Diphenhydramine/maalox/lidocaine 1:1:1) May compound if kit unavailable/not covered by insurance Morphine Sulfate (Morphine Sulfate) 100 Mg/5 Ml Solution, 0.25-1 ML PO Q2H PRN for PAIN OR DYSPNEA Use sublingually if unable to swallow Allergies Coded Allergies: Penicillins (Verified Allergy, Intermediate, HIVES, 03/25/20) nickel (Verified Allergy, Intermediate, rash, swelling, 03/25/20) aspirin (Verified Adverse Reaction, Intermediate, HIVES WITH NORMAL DOSE FOR SEVERAL DAYS, 03/25/20) TAKES 81MG AT HOME DAILY Sarah Simmons MD Apr 03, 2020 12:53
== END 2020-04-03 14:35 | disposition hospice, inpatient (51) | DRG 193 ==
LOC: M ED 15:38 → M ED INP 19:35 → M MSPAV 23:11
PROVIDERS: ADMIT Internal Medicine; ATTEND Internal Medicine
DX: J18.9 Pneumonia, unspecified organism (principal); J96.01 Acute respiratory failure with hypoxia; E43 Unspecified severe protein-calorie malnutrition; C34.01 Malignant neoplasm of right main bronchus; I48.19 Other persistent atrial fibrillation; J90 Pleural effusion, not elsewhere classified; J98.11 Atelectasis; R64 Cachexia; K20.80 Other esophagitis without bleeding; E11.40 Type 2 diabetes mellitus with diabetic neuropathy, unspecified; Z66 Do not resuscitate; J44.9 Chronic obstructive pulmonary disease, unspecified; G47.33 Obstructive sleep apnea (adult) (pediatric); E87.5 Hyperkalemia; I10 Essential (primary) hypertension; G25.0 Essential tremor; I27.20 Pulmonary hypertension, unspecified; F32.9 Major depressive disorder, single episode, unspecified; Z98.41 Cataract extraction status, right eye; Z98.42 Cataract extraction status, left eye; Z96.651 Presence of right artificial knee joint; Z87.891 Personal history of nicotine dependence; Z79.82 Long term (current) use of aspirin; Z79.84 Long term (current) use of oral hypoglycemic drugs; Z79.899 Other long term (current) drug therapy; Z88.0 Allergy status to penicillin; Z88.6 Allergy status to analgesic agent; Z91.048 Other nonmedicinal substance allergy status